=== PATIENT | female | born 1950 | race Caucasian/White ===

== ENCOUNTER 2023-12-15 08:13 | Outpatient (OUT) | payer MEDICARE, OTHER, SELFPAY ==
--- NOTE | 2023-12-15 08:29 | XR_ITS ---
The [address] [address] Patient Name: TRENT ANDERS MRN: [id number] date: 1950 Sex: F Assigned Patient Location: [facility] Current Patient Location: [facility] Accession/Order Number: [id number] Exam Date: 12/15/2023 08:34 Report Date: 12/15/2023 09:13 At the request of: JAYDEN ALMONTE Procedure: XR abdomen 1V EXAMINATION: XR abdomen 1V HISTORY: Ureteral Stone N20.1, Kidney Stone N20.0 COMPARISON: No relevant comparison available. FINDINGS: KIDNEY/URETER - RIGHT: No visible renal or ureteral calcifications. KIDNEY/URETER - LEFT: No visible renal stones PELVIS: 8 mm left pelvic calcification BOWEL: No abnormal dilation or deviation. BONES: No acute abnormality. Degenerative changes OTHER: IVC filter. No abnormal gaseous collections. XR/XR abdomen 1V IMPRESSION: Possible distal 8mm left ureterolith Electronically authenticated by: ERIC BECKER Date: 12/15/2023 09:13
== END 2023-12-15 08:14 | disposition home or self-care (01) ==
LOC: RAD 08:19
PROVIDERS: PCP Family Medicine; Visit Provider Urology
DX: N20.1 Calculus of ureter (principal); N20.0 Calculus of kidney
CPT/HCPCS: 74018

== ENCOUNTER 2024-01-01 07:48 | Outpatient (OUT) | payer MEDICARE, OTHER, SELFPAY ==
[2024-01-01 08:31] LABS: Estimated GFR (African America >60 (>=60); Estimated GFR (Non-African Ame >60 (>=60)
--- NOTE | 2024-01-01 09:35 | XR_ITS ---
[address] [address] Patient Name: TRENT ANDERS MRN: [id number] date: 1950 Sex: F [place]igned [place] Accession/Order Number: [id number] Exam Date: 01/01/2024 08:49 Report Date: 01/01/2024 10:09 At the request of: JAYDEN ALMONTE Procedure: XR IVP w KUB EXAMINATION: XR IVP w KUB HISTORY: Kidney Stone N20.0 COMPARISON: No relevant comparison available. TECHNIQUE: After obtaining patient consent a assembler [employer] image was obtained followed by injection of 100cc of Omnipaque 300 IV contrast. Immediate nephrographic images were obtained. Corticomedullary and urographic phase images were obtained at 5, 10, 15 and 20 minutes. 15 minute oblique images were also obtained. FINDINGS: KIDNEY/URETER - RIGHT: No visible calcifications. KIDNEY/URETER - LEFT: No visible calcifications. PELVIS: No visible ureteral calcifications. Any visible calcifications favor phleboliths. NEPHROGRAPHIC PHASE: Normal, symmetric size, contour, and orientation. Normal and symmetric time of contrast uptake. CORTICOMEDULLARY: No mass or abnormal appearing medulla, pyramids, or collecting system. UROGRAPHIC PHASE: Normal caliber, course, and number of ureters. BLADDER: Normal size and contour. BOWEL: No abnormal dilation or deviation. BONES: No acute abnormality. OTHER: IVC filter. Degenerative changes of the spine. No abnormal gaseous collections. XR/XR IVP w KUB IMPRESSION: Normal IVP with no hydronephrosis, abnormal calcification or filling defect Electronically authenticated by: ERIC BECKER Date: 01/01/2024 10:09
== END 2024-01-01 07:49 | disposition home or self-care (01) ==
PROVIDERS: PCP Family Medicine; Visit Provider Urology
DX: N20.0 Calculus of kidney (principal)
CPT/HCPCS: 36415; 74400; 82565; Q9967

== ENCOUNTER 2024-10-02 09:12 | Outpatient (REF) | payer OTHER, SELFPAY ==
--- OUTSIDE RECORDS SUMMARY | 2024-10-02 09:15 | XMS_ITS | CCD ---
Author Organization [facility] Care Team Providers Care Print Graphic Designer Name Role Phone Claudio Alonso Unavailable Unavailable Laina Morales Unavailable Unavailable MISC, DOCTOR Admitting Unavailable MISAdeola, DOCTOR Attending Unavailable HELENA FONTENOT Primary Care Unavailable JOSEPH ARCHER Admitting Unavailable JOSEPH ARCHER Attending Unavailable HELENA FONTENOT Primary Care Unavailable Chiquita Gerber Unavailable Dipti Garvin Unavailable Venkat Miller Unavailable ODALYS Blancas Attending Provider MD Linda Radha Primary Care Provider MD Tyrese Swanson Attending Provider [phone] [facility] Primary Care Provider [phone] MD Patricio Cifuentes Attending Provider [phone] MD Linda Radha Primary Care Provider [phone] MD Venkat Miller Attending Provider [phone] ODALYS Morales Attending Provider ODALYS Blancas Attending Provider Michael Ramirez Unavailable MD Radha Mckeon Primary Care Provider MD Venkat Miller Attending Provider [phone] ODALYS Morales Attending Provider DO Robert Ledezma II Attending Provider MD Michael Ramirez Attending Provider Radha Mckeon MD Primary Care Provider [phone] Padma GARCIAPippa Unavailable MD Linda [facility] Primary Care Provider DO Neto Sheets Attending Provider MD Linda [facility] Attending Provider MD Linda [facility] Primary Care Provider DO Neto Sheets Attending Provider [phone] [facility] Attending Provider DO Robert Ledezma II Attending Provider DO Agustín Rodriges Emergency Provider Delcovai kemar Acosta MD [facility] Emergency Provider [phone] LINDA RADHA Elin Primary Care Physician MD Jasper Almonte Attending Provider [phone] [facility] Primary Care Provider DO Mau Blackman Attending Provider MD Linda [facility] Primary Care Provider [phone] DO Robert Ledezma II Attending Provider MD Teri [place] Attending Provider Padma GARCIAPippa Unavailable Linda MARTINEZ, Radha Worthington Unavailable Lulu KNOTT, Crystal Unavailable RADHA Liao-Adeola Watson Attending Provider EVANGELINA WATSON Attending Unavailable RADHA MCKEON Referring Unavailable RADHA MCKEON Primary Care Unavailable Linda MARTINEZ Jeanna Primary Care Provider [phone] Linda MARTINEZ Radha Elin Primary Care Provider [phone] ALEJANDRINA GONZALEZ Attending Unavailable RADHA MCKEON Referring Unavailable RADHA MCKEON Primary Care Unavailable Linda MARTINEZ Radha Elin Unavailable GELY SNOW Attending Unavailable LINDA JEANNA Primary Care Unavailable GELY SNOW Attending Unavailable GELY SNOW Referring Un[facility] Unavailable Jasper ALMONTE Attending Unavailable LANDY CRUZ Attending UnavailJasper Newman Attending Unavailable Linda MARTINEZ, Radha Worthington Unavailable Linda MARTINEZ, Radha F Unavailable Linda MARTINEZ, [facility] Provider Santana Williamson MD Attending Provider [phone] SADAF CALHOUN Attending Unavailable TYRESE SWANSON Attending Unavailable LJSADAF BRAND S Referring Unavailable KORTNEY, NETO Diamond Attending Unavailable LINDA, RADHA F Attending Unavailable KORTNEY, NETO Diamond Attending Unavailable LJ, SADAF Diamond Attending Unavailable KORTNEY, NETO Diamond Attending Unavailable BRAVO CANTU Attending Unavailable PATRICIO CIFUENTES Attending Unavailable PATRICIO CIFUENTES Referring Unavailable LJ, SADAF S Attending Unavailable RADHA MCKEON Elin Attending Unavailable LINDA, RADHA Worthington Attending Unavailable LJ, SADAF S Attending Unavailable LJ, SADAF S Attending Unavailable LINDA, RADHA Elin Attending Unavailable LJ, SADAF S Attending Unavailable [facility] Care Unavailable Aby Acosta Admitting Unavailable Aby Acosta Attending Unavailable [facility] Unavailable Adamowicz II, Robert Buenrostro Admitting Unavaila ble Adamowicz II, Robert J Attending Unavaila ble Agustín Rodriges Attending Unavailable [facility] Care Unavailable Agustín Rodriges Admitting [facility] Santana Williamson Admitting Unavailable Santana Williamson Attending [facility] Unavailable Mau Blackman Admitting Unavailable Mau Blackman Attending Unavailable [facility] Unavailable Jasper Almonte Admitting Unavailable Jasper Almonte Attending Unavailable [facility] Unavailable Helena Liao Admitting Unavailable Helena Liao Attending [facility] Santana Williamson Attending Unavailable Santana Williamson Admitting Unavailable Neto Sheets Admitting Unavailable Neto Sheets Attending Unavailable [facility] Unavailable Allergies Allergy Classification Reported Allergen(s) Allergy Type Date of Onset Reaction(s) Facility (20 sources) Enoxaparin Drug Allergy Itching, Rash [facility] (1 source) No Known Medication Allergies; Translations: [No Known Medication Allergies] Propensity to adverse reactions (disorder) [facility] Repository Medications Current Medications Medication Drug Class(es) Dates Sig (Normalized) Sig (Original) acetaminophen 325 mg oral tablet (20 sources) Start: 12-02-2023 take 2 tablets by mouth every six hours as needed acetaminophen (Tylenol) 325 MG tablet Take 650 mg by mouth every 6 (six) hours if needed 12/02/2023 Active Start: 12-02-2023 take 2 capsules by m outh every six hours as needed for pain Acetaminophen (Tylenol) 325 mg capsule Active 650 MG PO Every 6 hours as needed for pain December 01, 2023 11:00pm Start: 06-10-2023 take 1 tablet by efraín th once daily as needed for pain Acetaminophen 500 mg Tablet Active 500 MG PO Daily as needed for Pain June 10, 2023 12:00am Start: 05-15-2017 End: 06-10-2023 take 2 tablets by mouth once daily as needed for pain Acetaminophen (Tylenol) 325 mg Tablet Discontinued 2 TAB PO Daily as needed for Pain May 14, 2017 11:00pm June 10, 2023 10:08am acetaminophen (T ylenol) 500 mg tablet Take by mouth every 6 hours if needed for mild pain (1 - 3). Active [id number] 200 actuat albuterol 0.09 mg/actuat metered dose inhaler (20 sources) beta2-Adrenergic Agonist Start: 06-03-2022 take 2 puff(s) by inhalation every six hours as needed for wheezing albuterol (PROVENTIL HFA;VENTOLIN HFA) 90 mcg/actuation inhaler Indications: Mild intermittent asthma, unspecified whether complicated Inhale 2 puffs every 6 (six) hours as needed for wheezing. 6.7 g 5 06/03/2022 Active Start: 05-15-2017 take 1 puff(s) by in halation every four to six hours Albuterol Sulfate Active 1 PUFF INHALATION EVERY 4-6 HOURS May 14, 2017 11:00pm Start: 05-15-2017 take 1 puff(s) by in halation every four to six hours Albuterol Sulfate Active 1 PUFF INHALATION EVERY 4-6 HOURS May 15, 2017 12:00am take 2 puff(s) by in halation every four hours for wheezing albuterol (ProAir Digihaler) 90 mcg/act breath-activated inhaler (w/ sensor) 2 puffs every 4 (four) hours if needed for wheezing Active Albuterol Sulfate 90 mcg/actuation Hfa Aerosol Inhaler (2 sources) Start: 05-15-2017 take 1 puff(s) by inhalation every four to six hours as needed for wheezing Albuterol Sulfate 90 mcg/actuation Hfa Aerosol Inhaler Active 1 PUFF INHALATION EVERY 4-6 HOURS as needed for Shortness Of Breath Or Wheezing May 14, 2017 11:00pm amoxicillin 500 mg oral capsule (16 sources) Penicillin-class Antibacterial Start: 05-04-2024 amoxicillin (Amoxil) 500 MG capsule 05/04/2024 Active 24 hr buPROPion hydrochloride 300 mg extended release oral tablet (20 sources) Aminoketone Start: 06-10-2023 take 1 tablet by mouth once daily in the morning buPROPion XL (Wellbutrin XL) 300 MG 24 hr tablet Indications: Recurrent major depressive disorder, remission status unspecified (HCC) (CMS/HCC) TAKE 1 TABLET BY MOUTH EVERY DAY IN THE MORNING FOR 90 DAYS 90 tablet 4 11/21/2023 Active Start: 04-25-2020 End: 06-10-2023 take 1 tablet by mouth once daily in the morning Bupropion Hcl 150 mg Tablet Extended Release 24 Hr Discontinued 150 MG PO Every morning April 24, 2020 11:00pm June 10, 2023 10:07am Start: 06-22-2019 take 1 tablet by efraín th every twenty-four hours in the morning buPROPion XL (WELLBUTRIN XL) 150 mg 24 hr tablet Take 1 tablet (150 mg total) by mouth in the morning. 06/22/2019 Active busPIRone hydrochloride 5 mg oral tablet (15 sources) Start: 05-10-2024 End: 05-10-2025 take 1 tablet by mouth three times daily as needed for anxiety busPIRone (Buspar) 5 MG tablet Indications: Major depressive disorder, single episode, moderate (HCC) (CMS/HCC) Take 1 tablet (5 mg) by mouth 3 (three) times a day as needed (anxiety) 30 tablet 05/10/2024 05/10/2025 Active cholecalciferol 0.05 mg oral tablet (20 sources) Vitamin D Start: 09-16-2023 End: 12-01-2023 cholecalciferol (Vitamin D-3) 50 MCG (2000 UT) tablet Take by mouth Daily Four times a week 09/16/2023 Active Start: 06-24-2017 End: 06-10-2023 Cholecalciferol (Vitamin D3) (Vitamin D3) 1,000 unit Capsule Discontinued [id number] UNIT PO As Directed June 24, 2017 12:00am June 10, 2023 10:08am clobetasol propionate 0.5 mg/ml topical cream (1 source) Corticosteroid Start: 04-16-2017 clobetasol (TEMOVATE) 0.05 % cream 04/16/2017 Active cyclobenzaprine hydrochloride 5 mg oral tablet (18 sources) Muscle Relaxant Start: 03-24-2024 take 1 tablet by mouth three times daily as needed for muscle spasms Cyclobenzaprine 5 mg tablet Active 5 MG PO Three times daily as needed for muscle spasm March 23, 2024 11:00pm Start: 06-17-2021 take 1 tablet by efraín th three times daily as needed for pain Cyclobenzaprine HCl 10 MG 1 tab(s) Orally tid prn As needed neck pain and stiffness Jun, Active 0.8 ml enoxaparin sodium 100 mg/ml prefilled syringe (5 sources) Low Molecular Weight Heparin Start: 09-09-2023 End: 09-15-2023 Enoxaparin Sodium (Lovenox) 80 MG/0.8ML solution prefilled syringe Indications: Factor 5 Leiden mutation, heterozygous (CMS/HCC) Inject 80 mg as directed in the morning and 80 mg before bedtime. Do all this for 6 days. Hold coumadin 7 days prior to surgery, start lovenox on 1st day coumadin is held and hold 24 hours before surgery. 9.6 mL 0 09/09/2023 09/15/2023 Active ergocalciferol 1.25 mg oral capsule (20 sources) Provitamin D2 Compound Start: 06-10-2023 Ergocalciferol ([place]ley min D2) 1,250 mcg (50,000 unit) capsule Active [id number] UNIT PO 4 times per week June 10, 2023 12:00am , fri Start: 06-10-2023 take [id number] [IU] by mouth four times weekly Ergocalciferol (Vitamin D2) Active [id number] UNIT PO 4 times per week June 10, 2023 1:00am , fri Start: 06-10-2023 take [id number] [IU] by mouth every week Ergocalciferol (Vitamin D2) Active [id number] UNIT PO every week June 10, 2023 12:00am take 1 capsule by mo uth every week ergocalciferol (Vitamin D2) 1.25 MG (23259 UT) capsule Take 1 capsule (1,250 mcg) by mouth 1 (one) time per week. Active End: 05-10-2024 take 1 capsule by mouth five times weekly ergocalciferol (Vitamin D2) 1.25 MG (08889 UT) capsule TAKE 1 CAPSULE BY MOUTH 5 TIMES PER WEEK 05/10/2024 Discontinued (Duplicate order) Ergocalciferol 5 0 MCG (2000 UT) tablet Take 1.25 mg by mouth. 0 Active ergocalciferol, vitamin D2, (VITAMIN D2 ORAL) (1 source) ergocalciferol, vitamin D2, (VITAMIN D2 ORAL) Take 1.25 mg by mouth. 9 times a week Active famotidine 20 mg oral tablet (20 sources) Histamine-2 Receptor Antagonist Start: End: 024 take 1 tablet by mouth once daily at bedtime as needed famotidine (Pepcid) 20 MG tablet Indications: Gastro-esophageal reflux disease without esophagitis TAKE 1 TABLET BY MOUTH EVERY DAY AT BEDTIME NEEDED 90 tablet 4 09/15/2023 Active fluticasone propionate 0.05 mg/actuat metered dose nasal spray (20 sources) Corticosteroid take 2 spray(s) nasal route in the morning fluticasone (Flonase) 50 MCG/ACT nasal spray Administer 2 sprays into affected nostril(s) in the morning. Active take 2 spray(s) nasa l route in the morning fluticasone (FLONASE) 50 mcg/actuation n frankie spray Administer 2 sprays into each nostril in the morning. Active hydroxychloroquine sulfate 200 mg oral tablet (20 sources) Antimalarial, Antirheumatic Agent Start: 12-30-2018 take 1 tablet by mouth twice daily Hydroxychloroquine (Plaquenil) 200 mg Tablet Active 200 MG PO Twice daily December 29, 2018 11:00pm hydroxychloroqui ne (Plaquenil) 200 MG tablet 1 (one) time each day at the same time. Active lidocaine 0.05 mg/mg medicated patch (10 sources) Antiarrhythmic, Amide Local Anesthetic Start: 06-17-2021 Lidocaine 5 % 1 patch remove after 12 hours Externally Once a day for 10 day(s) Apply to painful area as prescribed as needed Jun, Active Start: 06-17-2021 Lidocaine 5 % 1 patch remove after 12 hours Externally Once a day for 10 day(s) Apply to painful area as prescribed as needed Jun, Active lisinopril 2.5 mg oral tablet (3 sources) Angiotensin Converting Enzyme Inhibitor Start: 09-14-2024 End: 09-14-2025 take 1 tablet by mouth in the morning lisinopril 2.5 MG tablet Take 2.5 mg by mouth in the morning. 09/14/2024 09/14/2025 Active metroNIDAZOLE 500 mg oral tablet (10 sources) Nitroimidazole Antimicrobial Flagyl 500 MG 1 tablet Orally PRN Not-Taking Multivitamin Adult - (10 sources) Multivitamin Ketan lt - Orally Once daily Active Multivitamin preparation (20 sources) Start: 09-16-2023 take 1 tablet by mouth once daily Multivitamin Active 1 TAB PO Daily September 16, 2023 1:00am Start: 09-16-2023 take 1 tablet by efraín once daily Multivitamin Active 1 TAB PO Daily September 16, 2023 12:00am Start: 05-15-2017 End: 09-16-2023 take 2 tablets by mouth once daily Multivitamin Discontinued 2 TAB PO Daily May 15, 2017 12:00am September 16, 2023 1:09pm Start: 05-15-2017 End: 09-16-2023 take 2 tablets by mouth once daily Multivitamin Discontinued 2 TAB PO Daily May 14, 2017 11:00pm September 16, 2023 12:09pm Start: 05-15-2017 take 2 tablets by mo [facility] once daily Multivitamin Active 2 TAB PO Daily May 14, 2017 11:00pm Start: 05-15-2017 take 1 tablet by efraín th once daily Multivitamin Active 1 TAB PO Daily May 14, 2017 11:00pm Start: 05-15-2017 take 1 tablet by efraín th once daily Multivitamin Active 1 TAB PO Daily May 15, 2017 12:00am Multivitamin tablet (2 sources) Start: 09-16-2023 take 1 tablet by mouth once daily Multivitamin tablet Active 1 TAB PO Daily September 16, 2023 12:00am nitroglycerin 0.004 mg/mg rectal ointment (20 sources) Nitrate Vasodilator Start: 09-16-2023 nitroglycerin (Rectiv) 0.4 % (w/w) rectal ointment Twice daily 09/16/2023 Active Start: 06-10-2023 End: 09-16-2023 Nitroglycerin 0.4 % (w/w) oi ntment Active 1 INCH LA Twice daily as needed for rectal discomfort September 16, 2023 12:00am Start: 06-10-2023 End: 09-16-2023 Nitroglycerin 0.4 % (w/w) oi ntment Discontinued 1 INCH LA Twice daily 02 03June 10, 2023 12:00am September 16, 2023 12:07pm PARoxetine hydrochloride 30 mg oral tablet (20 sources) Serotonin Reuptake Inhibitor Start: 07-09-2024 take 1 tablet by mouth once daily in the morning PARoxetine (Paxil) 30 MG tablet Indications: Panic disorder (CMS/HCC) TAKE 1 TABLET BY MOUTH EVERY DAY IN THE MORNING 90 tablet 1 07/09/2024 Active Start: 01-14-2024 take 1 tablet by efraín th once daily in the morning PARoxetine (Paxil) 30 MG tablet Indications: Panic disorder (CMS/HCC) TAKE 1 TABLET BY MOUTH EVERY DAY IN THE MORNING 90 tablet 1 01/14/2024 Active Start: 12-10-2023 take 1 tablet by efraín th once daily Paxil 20 mg Tab 20 mg = 1 tab(s), Oral, Daily, Refills(s) 0 Start Date: 12/10/23 Status: Ordered Start: 07-14-2023 take 1 tablet by efraín th once daily in the morning PARoxetine (Paxil) 30 MG tablet Indications: Panic disorder (CMS/HCC) TAKE 1 TABLET BY MOUTH EVERY DAY IN THE MORNING 90 tablet 1 07/14/2023 Active Start: 06-10-2023 Paroxetine Hcl 30 mg tablet Active 20 MG PO Every morning June 10, 2023 12:00am Start: 06-10-2023 take 20 mg by mouth once daily in the morning Paroxetine Hcl Active 20 MG PO Every morning June 10, 2023 1:00am Start: 06-10-2023 take 30 mg by mouth once daily Paroxetine Hcl Active 30 MG PO Daily June 10, 2023 12:00am Start: 05-15-2017 End: 06-10-2023 take 1 tablet by mouth once daily Paroxetine Hcl (Paxil) 20 mg Tablet Discontinued 20 MG PO Daily May 14, 2017 11:00pm June 10, 2023 10:09am Start: 05-15-2017 Paroxetine Hcl (Paxil) 20 mg Tablet Active 30 MG PO Daily May 15, 2017 12:00am polyethylene glycol 3350 218188 mg / potassium chloride 2970 mg / sodium bicarbonate 6740 mg / sodium chloride 5860 mg / sodium sulfate 79944 mg powder for oral solution (2 sources) Osmotic Laxative Start: 05-20-2023 take 4000 mL by mouth once daily Golytely 236 GM 4000 ML Orally once daily for 1 days May, Active predniSONE 20 mg oral tablet (20 sources) Start: 10-05-2021 take 1 tablet by mouth every eight hours predniSONE 20 MG 1 tablet Orally Three times a day for 5 days Oct, Active Start: 06-17-2021 take 1 tablet by efraín th every twelve hours predniSONE 20 MG 1 tablet Orally bid for 5 day(s) Jun, Active Start: 06-24-2017 End: 12-23-2017 take 1 tablet by mouth once daily Prednisone 5 tablet Discontinued 5 MG PO Daily June 24, 2017 12:00am December 23, 2017 9:46am Start: 05-15-2017 End: 06-24-2017 take 1 tablet by mouth once daily Prednisone 20 mg Tablet Discontinued 20 MG PO Daily May 14, 2017 11:00pm June 24, 2017 10:17am Robaxin-750 750 MG (9 sources) Start: 10-05-2021 take 1 tablet by mouth at bedtime Robaxin-750 750 MG 1 -2 tablet(s) Orally at bedtime for 10 days Oct, Active silver sulfADIAZINE 10 mg/ml topical cream (20 sources) Sulfonamide Antibacterial Start: 11-04-2023 silver sulfADIAZINE (Silvadene) 1 % cream Indications: Acute vulvitis Apply topically Daily 25 g 11/04/2023 Active therapeutic multivitamin (THERAGRAN) tablet (1 source) take 1 tablet by mouth in the morning therapeutic multivitamin (THERAGRAN) tablet Take 1 tablet by mouth in the morning. Active traMADol hydrochloride 50 mg oral tablet (10 sources) Opioid Agonist take 1 tablet by mouth every twenty-four hours triamcinolone acetonide 1 mg/ml topical cream (20 sources) Corticosteroid Start: 08-18-2024 triamcinolone (Kenalog) 0.1 % cream Indications: Atopic neurodermatitis APPLY TO AFFECTED AREA TWICE A DAY 60 g 1 08/18/2024 Active Start: 10-09-2023 triamcinolone (Kenalog) 0.1 % cream Indications: Atopic neurodermatitis Apply topically 2 (two) times a day 60 g 1 10/09/2023 Active Start: 10-31-2022 Kenalog-40 Mar, 40 mg Start: 03-06-2021 Kenalog -40 mg Mar, 40 mg Start: 09-23-2017 Kenalog -40 mg 20 Sep, 2017 Vitamin D 2000 UNIT (10 sources) take 1 tablet by mouth once daily Vitamin D 2000 UNIT 1 tablet Orally Once a day Active warfarin sodium 2 mg oral tablet (20 sources) Vitamin K Antagonist Start: 05-17-2024 take 2 tablets by mouth three times weekly Warfarin 2 mg tablet Active 4 MG PO 3 Times a week May 17, 2024 3:13pm Start: 05-17-2024 take 4 mg by mouth t hree times weekly Warfarin Active 4 MG PO 3 Times a week May 17, 2024 4:13pm Start: 05-10-2024 take 1 tablet by efraín th three times weekly warfarin (COUMADIN) 4 mg tablet Take 1 tablet (4 mg total) by mouth 3 (three) times a week. Takes on Friday05/10/2024 Active Start: 06-10-2023 End: 09-16-2023 Warfarin 2 mg tablet Discont inued 1 MG PO As Directed June 10, 2023 12:00am September 16, 2023 12:07pm Start: 06-10-2023 End: 09-16-2023 Warfarin Discontinued 1 MG P O As Directed June 10, 2023 1:00am September 16, 2023 1:07pm Start: 04-24-2021 End: 06-26-2024 take 1 mg by mouth once daily warfarin (Coumadin) 2 MG tablet Indications: Factor 5 Leiden mutation, heterozygous (CMS/HCC) TAKE 1 TABLET BY MOUTH EVERY DAY. TAKE 1 MG ON TUESDAYS 90 tablet 11 06/26/2024 Active take 2 tablets by mo ut in the evening warfarin (COUMADIN) 1 mg tablet Take 2 tablets (2 mg total) by mouth in the evening. Active take 1 tablet by efraín th once daily take 1 tablet by efraín th once daily Coumadin 1.5 mg 1 tablet Orally Once a day Not-Taking Zinc (2 sources) take 1 tablet by mouth once daily Zinc 50 MG 1 tablet Orally Once a day Active zinc gluconate 50 mg oral tablet (8 sources) take 1 tablet by mouth every twenty-four hours Zinc 50 MG 1 tablet Orally Once a day Active zoledronic acid 4 mg injection (4 sources) Bisphosphonate Start: 08-30-2024 Zoledronic Acid 4 mg recon soln Active MG IV August 30, 2024 12:00am zoledronic acid (Zometa) 4 MG/5ML injection Infuse 4 mg into a venous catheter 1 (one) time Active Completed/Discontinued Medications Medication Drug Class(es) Dates Sig (Normalized) Sig (Original) acetaminophen 325 mg / HYDROcodone bitartrate 5 mg oral tablet (20 sources) Opioid Agonist Start: 05-15-2017 End: 04-25-2022 take 1 tablet by mouth every four to six hours as needed for pain Hydrocodone-Acetami nophen ([place]) 5-325 mg Tablet Discontinued 1 TAB PO EVERY 4-6 HOURS as needed for Pain May 14, 2017 11:00pm April 25, 2022 11:56am take 1 tablet by efraín th every six hours as needed take 1 tablet by efraín th every six hours as needed [place] 5-325 MG 1 tablet as needed Orally every 6 hrs Not-Taking azithromycin 250 mg oral tablet (6 sources) Macrolide Antimicrobial Start: 01-15-2024 End: 05-08-2024 take 2 tablets by mouth once daily, then take 1 tablet by mouth once daily azithromycin (Zithromax) 250 MG tablet Indications: Acute bronchitis, unspecified organism 2 po every day x 1 day then 1 po every day x 4 days 6 tablet 01/15/2024 05/08/2024 Discontinued (Therapy completed) ferrous sulfate 325 mg oral tablet (20 sources) Start: 07-01-2018 End: 05-08-2024 take 1 tablet by mouth once daily Ferrous Sulfate (Iron) 325 mg (65 mg iron) Tablet Discontinued 325 MG PO Daily July 01, 2018 12:00am April 22, 2023 7:54am meloxicam 7.5 mg oral tablet (20 sources) Nonsteroidal Anti-inflammatory Drug Start: 12-23-2017 End: 12-30-2018 take 1 tablet by mouth once daily Meloxicam 7.5 mg Tablet Discontinued 7.5 MG PO Daily December 22, 2017 11:00pm December 30, 2018 7:46am methylPREDNISolone 4 mg oral tablet (8 sources) Corticosteroid Start: 03-24-2024 End: 04-23-2024 take 1 tablet by mouth once Methylprednisolone (Medrol (Mele)) 4 mg tablets,dose pack Discontinued 0 PO per package directions March 23, 2024 11:00pm April 23, 2024 8:11am PO PER PKG DIR Multivitamin Tablet (2 sources) Start: 05-15-2017 End: 09-16-2023 take 2 tablets by mouth once daily Multivitamin Tablet Discontinued 2 TAB PO Daily May 14, 2017 11:00pm September 16, 2023 12:09pm omeprazole 40 mg delayed release oral capsule (20 sources) Proton Pump Inhibitor Start: 05-15-2017 End: 05-08-2024 take 1 capsule by mouth once daily in the evening Omeprazole 40 mg capsule,delayed release(DR/EC) Discontinued 40 MG PO Every evening September 16, 2023 12:00am December 01, 2023 10:54pm take 1 capsule by mouth every tw enty-four hours ondansetron 4 mg oral tablet (17 sources) Serotonin-3 Receptor Antagonist Start: 12-02-2023 End: 05-08-2024 take 1 tablet by mouth every eight hours as needed Ondansetron Hcl 4 mg tablet Discontinued 4 MG PO .q8h prn 6 2 December 01, 2023 11:00pm February 27, 2024 8:16am oxyCODONE hydrochloride 5 mg oral capsule (17 sources) Opioid Agonist Start: 12-02-2023 End: 05-08-2024 take 1 capsule by mouth every eight hours as needed for pain Oxycodone 5 mg capsule Discontinued 5 MG PO Q8H as needed for pain 6 2 December 02, 2023 February 27, 2024 8:16am prasterone 25 mg oral capsule (20 sources) Start: 07-01-2018 End: 04-25-2020 take 1 capsule by mouth once daily Prasterone (Dhea) (Dhea) 25 mg Capsule Discontinued 25 MG PO Daily July 01, 2018 12:00am April 25, 2020 8:09am Progesterone (20 sources) Progesterone Start: 07-01-2018 End: 04-25-2020 Progesterone Micronized 4 % Gel Discontinued 45 MG Daily July 01, 2018 12:00am April 25, 2020 8:10am Start: 07-01-2018 End: 04-25-2020 Progesterone Micronized Disc ontinued 45 MG Daily July 01, 2018 12:00am April 25, 2020 8:10am Start: 07-01-2018 End: 04-25-2020 Progesterone Micronized Disc ontinued 45 MG Daily July 01, 2018 1:00am April 25, 2020 9:10am rivaroxaban 20 mg oral tablet (20 sources) Factor Xa Inhibitor Start: 05-15-2017 End: 04-24-2021 take 10 mg by mouth once daily Rivaroxaban (Xarelto) 20 mg Tablet Discontinued 10 MG PO Daily May 14, 2017 11:00pm April 24, 2021 8:30am sulfamethoxazole 800 mg / trimethoprim 160 mg oral tablet (20 sources) Dihydrofolate Reductase Inhibitor Antibacterial, Sulfonamide Antimicrobial Start: 05-15-2017 End: 12-23-2017 take 1 tablet by mouth once Sulfamethoxazole- Trimethoprim (Bactrim Ds) 800-160 mg Tablet Discontinued 1 TAB PO MOWEFR May 14, 2017 11:00pm December 23, 2017 9:47am tamsulosin hydrochloride 0.4 mg oral capsule (17 sources) alpha-Adrenergic [place] Start: 12-02-2023 End: 02-27-2024 take 1 capsule by mouth once daily Tamsulosin (Flomax) 0.4 mg capsule Discontinued 0.4 MG PO Daily 7 7 December 01, 2023 11:00pm February 27, 2024 8:16am End: 05-08-2024 take 1 capsule by mouth every twenty-four hours in the morning tamsulosin (Flomax) 0.4 MG 24 hr capsule Take 0.4 mg by mouth in the morning and 0.4 mg before bedtime. 05/08/2024 Discontinued (Therapy completed) Toradol 30 mg/ml (9 sources) Start: 06-17-2021 Toradol 30 mg/ ml Jun, 30 mg Vitamin D2 50,000 intl units (1.25 mg) oral capsule (1 source) Start: 12-10-2023 take 1 capsule by mouth every other day Vitamin D2 50,000 intl units (1.25 mg) oral capsule 50,000 International_Unit = 1 cap(s), Oral, Every other day, Refills(s) 0 Start Date: 12/10/23 Status: Ordered Zinc Amino Acid Chelate (19 sources) Start: 06-24-2017 End: 04-22-2023 take 50 mg by mouth once daily Zinc Amino Acid Chelate Discontinued 50 MG PO Daily June 24, 2017 12:00am April 22, 2023 7:54am Start: 06-24-2017 End: 04-22-2023 take 50 mg by mouth once daily Zinc Amino Acid Chelate Discontinued 50 MG PO Daily June 24, 2017 1:00am April 22, 2023 8:54am Start: 06-24-2017 take 50 mg by mouth once daily Zinc Amino Acid Chelate Active 50 MG PO Daily June 24, 2017 12:00am Start: 06-24-2017 take 50 mg by mouth once daily Zinc Amino Acid Chelate Active 50 MG PO Daily June 24, 2017 1:00am Zinc Amino Acid Chelate 50 mg tablet (2 sources) Start: 06-24-2017 End: 04-22-2023 take 1 tablet by mouth once daily Zinc Amino Acid Chelate 50 mg tablet Discontinued 50 MG PO Daily June 24, 2017 12:00am April 22, 2023 7:54am Problems Active Problems Problem Classification Problem Date Documented Date Episodic/Chronic Acquired foot deformities (20 sources) Acquired right hallux valgus; Translations: [Hallux valgus (acquired), right foot] Onset: 3 12-27-2022 Chronic Anxiety disorders (20 sources) Anxiety; Translations: [Anxiety disorder, unspecified] Onset: 3 12-27-2022 Chronic Aortic; peripheral; and visceral artery aneurysms (20 sources) Aneurysm of ascending aorta; Translations: [Ascending aortic aneurysm, unspecified whether ruptured (CMS/HCC)] Onset: 3 09-09-2023 Chronic Asthma (20 sources) Uncomplicated mild persistent asthma; Translations: [Mild persistent asthma, uncomplicated] Onset: 7 09-09-2023 Chronic Cardiac dysrhythmias (1 source) Bradycardia 12-10-2023 Episodic Coagulation and hemorrhagic disorders (20 sources) Heterozygous Factor V Leiden mutation; Translations: [Activated protein C resistance] Onset: 3 09-09-2023 Chronic Complications of surgical procedures or medical care (20 sources) Post-surgical malabsorption; Translations: [Postsurgical malabsorption, not elsewhere classified] Onset: 3 12-27-2022 Chronic Diseases of white blood cells (20 sources) Lymphocytopenia; Translations: [Lymphocytopenia] Onset: 3 06-24-2017 Chronic Esophageal disorders (20 sources) Gastroesophageal reflux disease; Translations: [Gastro-esophageal reflux disease without esophagitis] Onset: 3 12-27-2022 Chronic Heart valve disorders (20 sources) Aortic stenosis, non-rheumatic ; Translations: [Nonrheumatic aortic (valve) stenosis] Onset: 4 05-08-2024 Chronic Heart valve disorders (3 sources) Systolic murmur; Translations: [Cardiac murmur, unspecified] 09-09-2023 Episodic Immunizations and screening for infectious disease (2 sources) Vaccination needed; Translations: [Encounter for immunization] 05-10-2024 Episodic Lymphadenitis (20 sources) Mediastinal lymphadenopathy; Translations: [Localized enlarged lymph nodes] Onset: 7 Resolved: 7 12-30-2018 Episodic Malaise and fatigue (20 sources) Fatigue; Translations: [Chronic fatigue, unspecified] Onset: 3 09-09-2023 Chronic Menopausal disorders (20 sources) Atrophy of vagina; Translations: [Postmenopausal atrophic vaginitis] Onset: 3 Resolved: 4 12-27-2022 Chronic Mood disorders (20 sources) Moderate major depression, single episode; Translations: [Major depressive disorder, single episode, moderate] Onset: 3 Resolved: 4 09-09-2023 Chronic Nutritional deficiencies (20 sources) Vitamin D deficiency; Translations: [Vitamin D deficiency, unspecified] Onset: 3 12-27-2022 Chronic Osteoarthritis (20 sources) Primary gonarthrosis, bilateral; Translations: [Bilateral primary osteoarthritis of knee] Onset: 3 12-27-2022 Chronic Osteoporosis (20 sources) Osteoporosis; Translations: [Age-related osteoporosis without current pathological fracture] Onset: 3 Resolved: 4 04-22-2023 Chronic Other aftercare (20 sources) Long-term current use of anticoagulant; Translations: [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] Onset: 4 04-13-2019 Episodic Other aftercare (2 sources) 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; Translations: [long-term (current) use of anticoagulants] Onset: 4 Episodic Other circulatory disease (10 sources) Vasculitis; Translations: [Arteritis, unspecified] Chronic Other connective tissue disease (4 sources) Presence of left artificial knee joint; Translations: [PRESENCE LEFT ARTIFICIAL KNEE JOINT] Onset: 9 Chronic Other connective tissue disease (20 sources) Polymyalgia rheumatica; Translations: [Polymyalgia rheumatica] Onset: 3 09-09-2023 Chronic Other connective tissue disease (4 sources) Bicipital tendinitis, right shoulder; Translations: [BICIPITAL TENDINITIS RIGHT SHOULDER] Onset: 9 Episodic Other connective tissue disease (1 source) Impingement syndrome of right shoulder; Translations: [IMPINGEMENT SYNDROME RIGHT SHOULDER] Onset: 9 Episodic Other connective tissue disease (7 sources) Trochanteric bursitis of left hip; Translations: [Trochanteric bursitis, left hip] Episodic Other connective tissue disease (4 sources) Trochanteric bursitis, left hip Onset: 2 Resolved: 2 Episodic Other connective tissue disease (4 sources) Other bursitis of hip, left hip Onset: 2 Resolved: 2 Episodic Other connective tissue disease (9 sources) Trochanteric bursitis; Translations: [Trochanteric bursitis, left hip] 02-26-2024 Episodic Other connective tissue disease (20 sources) Impingement syndrome of unspecified shoulder; Translations: [Other affections of shoulder region, not elsewhere classified] 02-27-2024 Episodic Other connective tissue disease (17 sources) Other shoulder lesions, unspecified shoulder; Translations: [Disorders of bursae and tendons in shoulder region, unspecified] 02-27-2024 Episodic Other connective tissue disease (3 sources) Rotator cuff arthropathy of right shoulder; Translations: [Unspecified rotator cuff tear or rupture of right shoulder, not specified as traumatic] 05-17-2024 Episodic Other connective tissue disease (3 sources) Tear of right rotator cuff; Translations: [Unspecified rotator cuff tear or rupture of right shoulder, not specified as traumatic] 05-17-2024 Episodic Other connective tissue disease (3 sources) Unspecified rotator cuff tear or rupture of right shoulder, not specified as traumatic; Translations: [Other specified arthropathy, shoulder region] 05-17-2024 Episodic Other diseases of kidney and ureters (20 sources) Secondary hyperparathyroidism; Translations: [Secondary hyperparathyroidism of renal origin] Onset: 3 09-09-2023 Chronic Other endocrine disorders (20 sources) Hypoadrenalism; Translations: [Unspecified adrenocortical insufficiency] Onset: 7 09-09-2023 Chronic Other endocrine disorders (2 sources) Tertiary hyperparathyroidism; Translations: [Other hyperparathyroidism] 09-27-2024 Chronic Other gastrointestinal disorders (2 sources) History of bypass of stomach; Translations: [Bariatric surgery status] 09-27-2024 Episodic Other nervous system disorders (20 sources) Chronic pain; Translations: [Other chronic pain] Onset: 3 Resolved: 4 08-20-2023 Chronic Other nervous system disorders (4 sources) Other chronic pain Onset: 2 Resolved: 2 Chronic Other nervous system disorders (20 sources) Chronic pain syndrome; Translations: [Chronic pain syndrome] Onset: 3 Resolved: 4 08-20-2023 Chronic Other non-traumatic joint disorders (7 sources) Hip pain; Translations: [Pain in unspecified hip] Episodic Other non-traumatic joint disorders (3 sources) Pain in unspecified hip Onset: 2 Resolved: 2 Episodic Other screening for suspected conditions (not mental disorders or infectious disease) (1 source) Hormone increase 12-10-2023 Episodic Other skin disorders (20 sources) Localized scleroderma; 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]] Onset: 3 12-27-2022 Chronic Other skin disorders (20 sources) Lichen sclerosus et atrophicus; Translations: [Circumscribed scleroderma] Onset: 3 12-27-2022 Chronic Other skin disorders (1 source) Mass of left parotid gland 12-10-2023 Episodic Other upper respiratory disease (20 sources) Allergic rhinitis due to pollen; Translations: [Allergic rhinitis due to pollen] Onset: 3 12-27-2022 Chronic Phlebitis; thrombophlebitis and thromboembolism (20 sources) H/O: Deep vein thrombosis; Translations: [Personal history of other venous thrombosis and embolism] Onset: 4 06-24-2017 Episodic Residual codes; unclassified (20 sources) Obstructive sleep apnea syndrome; Translations: [Obstructive sleep apnea (adult) (pediatric)] Onset: 7 12-27-2022 Chronic Residual codes; unclassified (10 sources) Sleep apnea; Translations: [Sleep apnea, unspecified] Onset: 4 02-26-2024 Chronic Residual codes; unclassified (1 source) Obstructive sleep apnea (adult) (pediatric); Translations: [Obstructive sleep apnea (adult) (pediatric)] Onset: 4 Chronic Residual codes; unclassified (2 sources) Postmenopausal state; Translations: [Asymptomatic menopausal state] 09-30-2024 Episodic Retinal detachments; defects; vascular occlusion; and retinopathy (20 sources) Epiretinal membrane of left eye; Translations: [Puckering of macula, left eye] Onset: 4 10-06-2023 Chronic Systemic lupus erythematosus and connective tissue disorders (20 sources) Autoimmune disease; Translations: [Systemic involvement of connective tissue, unspecified] Onset: 3 09-09-2023 Chronic Past or Other Problems Problem Classification Problem Date Documented Da te Episodic/Chronic Calculus of urinary tract (20 sources) Urolithiasis ; Translations: [Urinary calculus, unspecified] Onset: 12-01-2023 12-02-2023 Episodic Cataract (20 sources) Nuclear sclerosis; Translations: [Age-related nuclear cataract, bilateral] Onset: 10-06-2023 Resolved: 01-15-2024 01-15-2024 Chronic Deficiency and other anemia (20 sources) Iron deficiency anemia; Translations: [Iron deficiency anemia, unspecified] Onset: 01-13-2018 04-13-2019 Episodic Deficiency and other anemia (14 sources) Iron deficiency anemia, unspecified; Translations: [Iron deficiency anemia, unspecified] Onset: 04-23-2024 04-25-2022 Episodic Deficiency and other anemia (1 source) Other iron deficiency anemias; Translations: [Other iron deficiency anemias] Onset: 04-23-2024 Episodic Diseases of mouth; excluding dental (1 source) Other diseases of salivary glands; Translations: [Other diseases of salivary glands] Onset: 09-29-2023 Episodic Fluid and electrolyte disorders (20 sources) Acute hypokalemia; Translations: [Hypokalemia] Onset: 01-15-2024 11-29-2023 Episodic Mood disorders (20 sources) Mood disorders Onset: 09-09-2023 Resolved: 09-30-2024 09-09-2023 Nonspecific chest pain (1 source) Chest pain, unspecified; Translations: [Chest pain, unspecified] Onset: 11-28-2023 Episodic Nutritional deficiencies (20 sources) Dietary zinc deficiency; Translations: [Dietary zinc deficiency] Onset: 12-27-2022 12-27-2022 Episodic Other aftercare (20 sources) Drug therapy finding; Translations: [long-term (current) use of anticoagulants] Onset: 02-12-2024 05-08-2024 Episodic Other connective tissue disease (20 sources) Iliopsoas bursitis of left hip; Translations: [Other bursitis of hip, left hip] Onset: 05-08-2024 02-26-2024 Episodic Other connective tissue disease (20 sources) Impingement syndrome of right shoulder region; Translations: [Impingement syndrome of right shoulder] Onset: 12-27-2022 12-27-2022 Episodic Other connective tissue disease (20 sources) Pain in left arm; Translations: [Pain in left arm] Onset: 01-15-2024 11-29-2023 Episodic Other connective tissue disease (20 sources) Impingement syndrome of shoulder region; Translations: [Impingement syndrome of unspecified shoulder] Onset: 05-08-2024 02-27-2024 Episodic Other lower respiratory disease (20 sources) Nodule of lung; Translations: [Solitary pulmonary nodule] Onset: 02-26-2017 12-27-2022 Episodic Other lower respiratory disease (20 sources) Cough; Translations: [Cough] Onset: 10-09-2016 Resolved: 08-20-2023 08-20-2023 Episodic Other nervous system disorders (20 sources) Difficulty walking; Translations: [Difficulty in walking, not elsewhere classified] Onset: 12-27-2022 Resolved: 08-20-2023 08-20-2023 Chronic Other non-traumatic joint disorders (20 sources) Pain in right shoulder; Translations: [Acute pain of right shoulder] Onset: 02-02-2019 02-26-2024 Episodic Other non-traumatic joint disorders (20 sources) Joint pain; Translations: [Pain in unspecified joint] Onset: 02-26-2017 12-27-2022 Episodic Other nutritional; endocrine; and metabolic disorders (20 sources) Excessive thirst; Translations: [Polydipsia] Onset: 12-27-2022 Resolved: 08-20-2023 08-20-2023 Episodic Other nutritional; endocrine; and metabolic disorders (20 sources) Overweight in adulthood with body mass index of 25 or more but less than 30; Translations: [Body mass index (BMI) 27.0-27.9, adult] Onset: 02-12-2024 05-08-2024 Episodic Other nutritional; endocrine; and metabolic disorders (2 sources) Body mass index (BMI) 27.0-27.9, adult; Translations: [Body mass index (BMI) 27.0-27.9, adult] Onset: 02-12-2024 Episodic Spondylosis; intervertebral disc disorders; other back problems (1 source) Torticollis Onset: 06-17-2021 Resolved: 06-17-2021 Episodic Sprains and strains (20 sources) Strain of left quadriceps muscle, fascia and tendon, initial encounter; Translations: [Strain of muscle, fascia and tendon of other parts of biceps, right arm, initial encounter] Onset: 10-05-2021 Resolved: 10-05-2021 Episodic Unclassified (2 sources) Onset: 02-12-2024 02-12-2024 Viral infection (20 sources) Verruca plantaris; Translations: [Plantar wart] Onset: 12-27-2022 Resolved: 08-20-2023 08-20-2023 Episodic Results Test Name Value Interpretation Reference Range Facility Laboratory - Cytologyon 09-05 Microscopic observation Cyto stain Nom (Cvx) 2.3 [facility] No Panel Informationon 09-30 Interpretation and review of laboratory results Normal [facility] INR- 2.3 PT-23.6 2mg Daily [facility] Alanine aminotransferase [En zymatic activity/volume] in Serum or PlasmaOrdered By: Santana Williamson on 09-27-2024 ALT [Catalytic activity/Vol] Alanine aminotransferase [Enzymatic activity/volume] in Serum or Plasma 7-52 [facility] Albumin [Mass/volume] in Ser um or Plasma by Bromocresol green (BCG) dye binding methoOrdered By: Santana Williamson on 09-27-2024 Albumin BCG dye [Mass/Vol] Albumin [Mass/volume] in Serum or Plasma by Bromocresol green (BCG) dye binding metho 3.5-5.7 [facility] Alkaline phosphatase [Enzyma tic activity/volume] in Serum or PlasmaOrdered By: Santana Williamson on 09-27-2024 ALP [Catalytic activity/Vol] Alkaline phosphatase [Enzymatic activity/volume] in Serum or Plasma 34-104 [facility] Appearance of UrineOrdered B y: Santana Williamson on 09-27-2024 Appearance (U) Urine appearance Abnormal Clear [facility] Aspartate aminotransferase [ Enzymatic activity/volume] in Serum or PlasmaOrdered By: Santana Williamson on 09-27-2024 AST [Catalytic activity/Vol] Aspartate aminotransferase [Enzymatic activity/volume] in Serum or Plasma High 13-39 [facility] Bacteria [Presence] in Urine by AutomatedOrdered By: Santana Williamson on 09-27-2024 Bacteria Auto Ql (U) Bacteria [Presence] in Urine by Automated None Seen [facility] Basophils Auto (Bld) [#/Vol] Ordered By: Santana Williamson on 09-27-2024 Basophils (Bld) [#/Vol] Automated basophil count 0.0-0.2 [facility] Basophils/100 WBC Auto (Bld) Ordered By: Santana Williamson on 09-27-2024 Basophils/100 WBC (Bld) Automated basophil % . [facility] Bilirubin Test strip Ql (U)O rdered By: Santana Williamson on 09-27-2024 Bilirubin Ql (U) Bilirubin.total [Pre sence] in Urine by Test strip Negative [facility] Bilirubin.direct [Mass/volum e] in Serum or PlasmaOrdered By: Santana Williamson on 09-27-2024 Bilirubin.direct [Mass/Vol] Bilirubin.direct [Mass/volume] in Serum or Plasma 0.03-0.18 [facility] Bilirubin.total [Mass/volume ] in Serum or PlasmaOrdered By: Santana Williamson on 09-27-2024 Bilirubin [Mass/Vol] Bilirubin.total [Mass/volume] in Serum or Plasma 0.3-1.0 [facility] C reactive protein [Mass/vol ume] in Serum or PlasmaOrdered By: Santana Williamson on 09-27-2024 CRP [Mass/Vol] C reactive protein [Mass/volume] in Serum or Plasma 0.0-0.5 [facility] C-Reactive Proteinon 025 CRP [Mass/Vol] mg/L Normal 0.0-0.5 [facility] Comment on above: Result Comment: PERF ORMED BY: [facility] [address] [place] [address] PATHOLOGIST VENDOR SPECIALIST LAURA GLOVER M.D. Performed By: #### E SR, CBC, ADDONUAPLUS, HEPATIC, CREAT, MG, CRP #### [facility] [address] Calcium oxalate crystals [Pr esence] in Urine by Computer assisted methodOrdered By: Santana Williamson on 09-27-2024 Calcium oxalate crystals Computer assisted Ql (U) Calcium oxalate crystals [Presence] in Urine by Computer assisted method [facility] Color Auto (U)Ordered By: Jacki Williamson on 09-27-2024 Color (U) Color of Urine by Auto Yellow Fi [facility] Complete Blood Count Auto Di ffon 09-27-2024 Basophils (Bld) [#/Vol] 0.0 10*3/uL Normal 0.0-0.2 [facility] Comment on above: Performed By: #### E SR, CBC, ADDONUAPLUS, HEPATIC, CREAT, MG, CRP #### [address] Basophils/100 WBC (Bld) 0.9 % Normal . [facility] Comment on above: Performed By: #### E SR, CBC, ADDONUAPLUS, HEPATIC, CREAT, MG, CRP #### [address] Eosinophils (Bld) [#/Vol] 0.2 10*3/uL Normal 0.0-0.45 [facility] Comment on above: Performed By: #### E SR, CBC, ADDONUAPLUS, HEPATIC, CREAT, MG, CRP #### [address] Eosinophils/100 WBC (Bld) 3.9 % Normal . [facility] Comment on above: Performed By: #### E SR, CBC, ADDONUAPLUS, HEPATIC, CREAT, MG, CRP #### [address] Erythrocyte distribution width (RBC) [Ratio] 13.6 % Normal 11.9-15.3 [facility] Comment on above: Performed By: #### E SR, CBC, ADDONUAPLUS, HEPATIC, CREAT, MG, CRP #### [address] Hematocrit (Bld) [Volume fraction] 38.1 % Normal 34.0-46.4 [facility] Comment on above: Performed By: #### E SR, CBC, ADDONUAPLUS, HEPATIC, CREAT, MG, CRP #### [address] Hemoglobin (Bld) [Mass/Vol] 13.0 g/dL Normal 11.8-15.4 [facility] Comment on above: Performed By: #### E SR, CBC, ADDONUAPLUS, HEPATIC, CREAT, MG, CRP #### [address] Lymphocytes (Bld) [#/Vol] 1.1 10*3/uL Normal 1.00-4.8 [facility] Comment on above: Performed By: #### E SR, CBC, ADDONUAPLUS, HEPATIC, CREAT, MG, CRP #### [address] Lymphocytes/100 WBC (Bld) 25.1 % Normal . [facility] Comment on above: Performed By: #### E SR, CBC, ADDONUAPLUS, HEPATIC, CREAT, MG, CRP #### [address] MCH (RBC) [Entitic mass] 32.4 pg Normal 24.7-34.3 [facility] Comment on above: Performed By: #### E SR, CBC, ADDONUAPLUS, HEPATIC, CREAT, MG, CRP #### [address] MCV (RBC) [Entitic vol] 95.0 fL Normal 80-100 [facility] Comment on above: Performed By: #### E SR, CBC, ADDONUAPLUS, HEPATIC, CREAT, MG, CRP #### [address] Mean Corpuscular HGB Conc 34.1 g/dL Normal 32.0-35.0 [facility] Comment on above: Performed By: #### E SR, CBC, ADDONUAPLUS, HEPATIC, CREAT, MG, CRP #### [address] Monocytes (Bld) [#/Vol] 0.3 10*3/uL Normal 0.0-0.8 [facility] Comment on above: Performed By: #### E SR, CBC, ADDONUAPLUS, HEPATIC, CREAT, MG, CRP #### [address] Monocytes/100 WBC (Bld) 7.6 % Normal . [facility] Comment on above: Performed By: #### E SR, CBC, ADDONUAPLUS, HEPATIC, CREAT, MG, CRP #### [address] Neutrophils (Bld) [#/Vol] 2.7 10*3/uL Normal 1.8-7.7 [facility] Comment on above: Performed By: #### E SR, CBC, ADDONUAPLUS, HEPATIC, CREAT, MG, CRP #### [address] Neutrophils/100 WBC (Bld) 62.5 % Normal . [facility] Comment on above: Performed By: #### E SR, CBC, ADDONUAPLUS, HEPATIC, CREAT, MG, CRP #### [address] NRBC% 0.0 /100{WBC} Normal 0-0.5 [facility] Comment on above: Performed By: #### E SR, CBC, ADDONUAPLUS, HEPATIC, CREAT, MG, CRP #### [address] Platelet mean volume (Bld) [Entitic vol] 10.1 fL Normal 6.3-10.7 [facility] Comment on above: Performed By: #### E SR, CBC, ADDONUAPLUS, HEPATIC, CREAT, MG, CRP #### [address] Platelets (Bld) [#/Vol] 157 10*3/uL Normal 150-450 [facility] Comment on above: Performed By: #### E SR, CBC, ADDONUAPLUS, HEPATIC, CREAT, MG, CRP #### [address] RBC (Bld) [#/Vol] 4.01 10*6/uL Normal 3.60-5.00 [facility] Comment on above: Performed By: #### E SR, CBC, ADDONUAPLUS, HEPATIC, CREAT, MG, CRP #### [address] WBC (Bld) [#/Vol] 4.4 10*3/uL Normal 3.8-11.6 [facility] Comment on above: Performed By: #### E SR, CBC, ADDONUAPLUS, HEPATIC, CREAT, MG, CRP #### [address] Creatinineon 09-27-2024 Creatinine [Mass/Vol] 0.58 mg/dL Low 0.60-1.20 [facility] Comment on above: Performed By: #### E SR, CBC, ADDONUAPLUS, HEPATIC, CREAT, MG, CRP #### [address] GFR/1.73 sq M.predicted MDRD (S/P/Bld) [Vol rate/Area] mL/min/{1.73_m2} Normal [facility] Comment on above: Performed By: #### E SR, CBC, ADDONUAPLUS, HEPATIC, CREAT, MG, CRP #### [address] Creatinine [Mass/volume] in Serum or PlasmaOrdered By: Santana Williamson on 09-27-2024 Creatinine [Mass/Vol] Creatinine [Mass/v olume] in Serum or Plasma Low 0.60-1.20 [facility] Dipstick and Microscopicon 0 09-27-2024 Appearance (U) Cloudy Critically abnormal Clear [facility] Comment on above: Order Comment: Name Collection Type:: Clean-Voided Midstream Performed By: #### E SR, CBC, ADDONUAPLUS, HEPATIC, CREAT, MG, CRP #### [address] Bacteria,Urine None Seen Normal None Seen [facility] Comment on above: Order Comment: Name Collection Type:: Clean-Voided Midstream Performed By: #### E SR, CBC, ADDONUAPLUS, HEPATIC, CREAT, MG, CRP #### [facility] [address] Bilirubin,Urine Negative Normal Negative [facility] Comment on above: Order Comment: Name Collection Type:: Clean-Voided Midstream Performed By: #### E SR, CBC, ADDONUAPLUS, HEPATIC, CREAT, MG, CRP #### [facility] [address] Calcium Oxalate Crystals,Urine 4+ Normal [facility] Comment on above: Order Comment: Name Collection Type:: Clean-Voided Midstream Performed By: #### E SR, CBC, ADDONUAPLUS, HEPATIC, CREAT, MG, CRP #### [address] Color (U) Light-Yellow Normal Yellow [facility] Comment on above: Order Comment: Name Collection Type:: Clean-Voided Midstream Performed By: #### E SR, CBC, ADDONUAPLUS, HEPATIC, CREAT, MG, CRP #### [address] Glucose Ql (U) Normal Normal Normal [facility] Comment on above: Order Comment: Name Collection Type:: Clean-Voided Midstream Performed By: #### E SR, CBC, ADDONUAPLUS, HEPATIC, CREAT, MG, CRP #### [address] Hyaline Casts,Urine None Normal 0-8 [facility] Comment on above: Order Comment: Name Collection Type:: Clean-Voided Midstream Performed By: #### E SR, CBC, ADDONUAPLUS, HEPATIC, CREAT, MG, CRP #### [address] Ketones Ql (U) Negative Normal Negative [facility] Comment on above: Order Comment: Name Collection Type:: Clean-Voided Midstream Performed By: #### E SR, CBC, ADDONUAPLUS, HEPATIC, CREAT, MG, CRP #### [address] Leukocyte esterase Test strip Ql (U) Negative Normal Negative [facility] Comment on above: Order Comment: Name Collection Type:: Clean-Voided Midstream Performed By: #### E SR, CBC, ADDONUAPLUS, HEPATIC, CREAT, MG, CRP #### [address] Mucus,Urine Rare Normal [facility] Comment on above: Order Comment: Name Collection Type:: Clean-Voided Midstream Result Comment: PERF ORMED BY: [place] [address] PATHOLOGIST VENDOR SPECIALIST LAURA GLOVER M.D. Performed By: #### E SR, CBC, ADDONUAPLUS, HEPATIC, CREAT, MG, CRP #### [address] Nitrite,Urine Negative Normal Negative [facility] Comment on above: Order Comment: Name Collection Type:: Clean-Voided Midstream Performed By: #### E SR, CBC, ADDONUAPLUS, HEPATIC, CREAT, MG, CRP #### [address] Occult Blood,Urine Negative Normal Negative [facility] Comment on above: Order Comment: Name Collection Type:: Clean-Voided Midstream Performed By: #### E SR, CBC, ADDONUAPLUS, HEPATIC, CREAT, MG, CRP #### [address] pH (U) 5.5 [pH] Normal 5.0-9.0 [facility] Comment on above: Order Comment: Name Collection Type:: Clean-Voided Midstream Performed By: #### E SR, CBC, ADDONUAPLUS, HEPATIC, CREAT, MG, CRP #### [address] Protein,Urine Negative Normal Negative [facility] Comment on above: Order Comment: Name Collection Type:: Clean-Voided Midstream Performed By: #### E SR, CBC, ADDONUAPLUS, HEPATIC, CREAT, MG, CRP #### [address] RBC,Urine 3-4 Normal 0-4 [facility] Comment on above: Order Comment: Name Collection Type:: Clean-Voided Midstream Performed By: #### E SR, CBC, ADDONUAPLUS, HEPATIC, CREAT, MG, CRP #### [facility] [address] Specificy [place],Urine 1.014 Normal 1.001-1.03 0 [facility] Comment on above: Order Comment: Name Collection Type:: Clean-Voided Midstream Performed By: #### E SR, CBC, ADDONUAPLUS, HEPATIC, CREAT, MG, CRP #### [facility] [address] Urobilinogen,Urine Normal Normal Normal [facility] Comment on above: Order Comment: Name Collection Type:: Clean-Voided Midstream Performed By: #### E SR, CBC, ADDONUAPLUS, HEPATIC, CREAT, MG, CRP #### [facility] [address] [place] [address] WBC,Urine 3-4 Normal 0-4 [facility] Comment on above: Order Comment: Name Collection Type:: Clean-Voided Midstream Performed By: #### E SR, CBC, ADDONUAPLUS, HEPATIC, CREAT, MG, CRP #### [facility] [address] [place] [address] Eosinophils Auto (Bld) [#/Vo l]Ordered By: Santana Williamson on 09-27-2024 Eosinophils (Bld) [#/Vol] Automated eosinophil count 0.0-0.45 [facility] Eosinophils/100 WBC Auto (Bl d)Ordered By: Santana Williamson on 09-27-2024 Eosinophils/100 WBC (Bld) Automated eosinophil % . [facility] Epithelial cells.squamous [# /area] in Urine sediment by Automated countOrdered By: Santana Williamson on 09-27-2024 Epithelial cells.squamous Auto (Urine sed) [#/Area] Epithelial cells.squamous [#/area] in Urine sediment by Automated count [facility] Erythrocyte Sedimentation Ra francie 09-27-2024 ESR (Bld) [Velocity] 7 mm/h Normal 0-29 [facility] Comment on above: Result Comment: PERF ORMED BY: [facility] [address] [place] [address] PATHOLOGIST VENDOR SPECIALIST LAURA GLOVER M.D. Performed By: #### E SR, CBC, ADDONUAPLUS, HEPATIC, CREAT, MG, CRP #### [facility] [address] Erythrocyte distribution wid th Auto (RBC) [Ratio]Ordered By: Santana Williamson on 09-27-2024 Erythrocyte distribution width (RBC) [Ratio] Erythrocyte distribution width [Ratio] by Automated count 11.9-15.3 [facility] Erythrocyte sedimentation ra te by Photometric methodOrdered By: Santana Williamson on 09-27-2024 ESR Photometric method (Bld) [Velocity] Erythrocyte sedimentation rate by Photometric method 0-29 [facility] Erythrocytes [#/area] in Uri ne sediment by Automated countOrdered By: Santana Williamson on 09-27-2024 RBC Auto (Urine sed) [#/Area] Erythrocytes [#/area] in Urine sediment by Automated count 0-4 [facility] Globulin Calc (S) [Mass/Vol] Ordered By: Santana Williamson on 09-27-2024 Globulin (S) [Mass/Vol] Serum globulin measurement by calculation (mass/volume) [facility] Glucose [Mass/volume] in Uri ne by Test stripOrdered By: Santana Williamson on 09-27-2024 Glucose Test strip (U) [Mass/Vol] Glucose [Mass/volume] in Urine by Test strip Normal [facility] Hematocrit Auto (Bld) [Volum e fraction]Ordered By: Santana Williamson on 09-27-2024 Hematocrit (Bld) [Volume fraction] Hematocrit [Volume Fraction] of Blood by Automated count 34.0-46.4 [facility] Hemoglobin Test strip Ql (U) Ordered By: Santana Williamson on 09-27-2024 Hemoglobin Ql (U) Hemoglobin [Presence ] in Urine by Test strip Negative [facility] Hemoglobin [Mass/volume] in BloodOrdered By: Santana Williamson on 09-27-2024 Hemoglobin (Bld) [Mass/Vol] Hemoglobin [Mass/volume] in Blood 11.8-15.4 [facility] Hepatic Panelon 09-27-2024 Albumin [Mass/Vol] 3.5 g/dL Normal 3.5-5.7 [facility] Comment on above: Performed By: #### E SR, CBC, ADDONUAPLUS, HEPATIC, CREAT, MG, CRP #### [address] Albumin/Globulin [Mass ratio] 1.7 {ratio} Normal [facility] Comment on above: Performed By: #### E SR, CBC, ADDONUAPLUS, HEPATIC, CREAT, MG, CRP #### [address] ALP [Catalytic activity/Vol] 95 U/L Normal 34-104 [facility] Comment on above: Performed By: #### E SR, CBC, ADDONUAPLUS, HEPATIC, CREAT, MG, CRP #### [address] ALT [Catalytic activity/Vol] 49 U/L Normal 7-52 [facility] Comment on above: Performed By: #### E SR, CBC, ADDONUAPLUS, HEPATIC, CREAT, MG, CRP #### [address] AST [Catalytic activity/Vol] 41 U/L High 13-39 [facility] Comment on above: Performed By: #### E SR, CBC, ADDONUAPLUS, HEPATIC, CREAT, MG, CRP #### [address] Bilirubin [Mass/Vol] 0.4 mg/dL Normal 0.3-1.0 [facility] Comment on above: Performed By: #### E SR, CBC, ADDONUAPLUS, HEPATIC, CREAT, MG, CRP #### [address] Bilirubin,Indirect 0.3 mg/dL Normal [facility] Comment on above: Performed By: #### E SR, CBC, ADDONUAPLUS, HEPATIC, CREAT, MG, CRP #### [facility] [address] Bilirubin.indirect [Mass/Vol] 0.10 mg/dL Normal 0.03-0.18 [facility] Comment on above: Performed By: #### E SR, CBC, ADDONUAPLUS, HEPATIC, CREAT, MG, CRP #### [facility] [address] Globulin (S) [Mass/Vol] 2.1 g/dL Normal [facility] Comment on above: Performed By: #### E SR, CBC, ADDONUAPLUS, HEPATIC, CREAT, MG, CRP #### [facility] [address] Protein [Mass/Vol] 5.6 g/dL Low 6.4-8.9 [facility] Comment on above: Performed By: #### E SR, CBC, ADDONUAPLUS, HEPATIC, CREAT, MG, CRP #### [facility] [address] Hyaline casts [#/area] in Ur ine sediment by Automated countOrdered By: Santana Williamson on 09-27-2024 Hyaline casts Auto (Urine sed) [#/Area] Hyaline casts [#/area] in Urine sediment by Automated count 0-8 [facility] Ketones Test strip Ql (U)Ord ered By: Santana Williamson on 09-27-2024 Ketones Ql (U) Ketones [Presence] i n Urine by Test strip Negative [facility] Leukocyte esterase [Presence ] in Urine by Test stripOrdered By: Santana Williamson on 09-27-2024 Leukocyte esterase Test strip Ql (U) Leukocyte esterase [Presence] in Urine by Test strip Negative [facility] Leukocytes [#/area] in Urine sediment by Automated countOrdered By: Santana Williamson on 09-27-2024 WBC Auto (Urine sed) [#/Area] Leukocytes [#/area] in Urine sediment by Automated count 0-4 [facility] Leukocytes [#/volume] correc zee for nucleated erythrocytes in Blood by Automated counOrdered By: Santana Williamson on 09-27-2024 WBC corrected for nucl RBC Auto (Bld) [#/Vol] Leukocytes [#/volume] corrected for nucleated erythrocytes in Blood by Automated coun 3.8-11.6 [facility] Lymphocytes Auto (Bld) [#/Vo l]Ordered By: Santana Williamson on 09-27-2024 Lymphocytes (Bld) [#/Vol] Lymphocytes [#/volume] in Blood by Automated count 1.00-4.8 [facility] Lymphocytes/100 WBC Auto (Bl d)Ordered By: Santana Williamson on 09-27-2024 Lymphocytes/100 WBC (Bld) Lymphocytes/100 leukocytes in Blood by Automated count . [facility] MCH Auto (RBC) [Entitic mass ]Ordered By: Santana Williamson on 09-27-2024 MCH (RBC) [Entitic mass] MCH [Entitic mass] by Automated count 24.7-34.3 [facility] MCHC Auto (RBC) [Mass/Vol]Or dered By: Santana Williamson on 09-27-2024 MCHC (RBC) [Mass/Vol] MCHC [Mass/volume] by Automated count 32.0-35.0 [facility] MCV Auto (RBC) [Entitic vol] Ordered By: Santana Williamson on 09-27-2024 MCV (RBC) [Entitic vol] MCV [Entitic volume] by Automated count 80-100 [facility] Magnesiumon 09-27-2024 Magnesium [Mass/Vol] 2.0 mg/dL Normal 1.9-2.7 [facility] Comment on above: Performed By: #### E SR, CBC, ADDONUAPLUS, HEPATIC, CREAT, MG, CRP #### [facility] [address] [place] [address] Magnesium [Mass/volume] in S maurilio or PlasmaOrdered By: Santana Williamson on 09-27-2024 Magnesium [Mass/Vol] Magnesium [Mass/vol ume] in Serum or Plasma 1.9-2.7 [facility] Monocytes Auto (Bld) [#/Vol] Ordered By: Santana Williamson on 09-27-2024 Monocytes (Bld) [#/Vol] Automated blood monocyte count 0.0-0.8 [facility] Monocytes/100 WBC Auto (Bld) Ordered By: Santana Williamson on 09-27-2024 Monocytes/100 WBC (Bld) Automated monocyte % . [facility] Mucus [Presence] in Urine by AutomatedOrdered By: Santana Williamson on 09-27-2024 Mucus Auto Ql (U) Mucus [Presence] in Urine by Automated [facility] Neutrophils Auto (Bld) [#/Vo l]Ordered By: Santana Williamson on 09-27-2024 Neutrophils (Bld) [#/Vol] Neutrophils [#/volume] in Blood by Automated count 1.8-7.7 [facility] Neutrophils/100 WBC Auto (Bl d)Ordered By: Santana Williamson on 09-27-2024 Neutrophils/100 WBC (Bld) Automated neutrophil % . [facility] Nitrite Test strip Ql (U)Ord ered By: Santana Williamson on 09-27-2024 Nitrite Ql (U) Nitrite [Presence] i n Urine by Test strip Negative [facility] No Panel InformationOrdered By: Santana Williamson on 09-27-2024 Estimated GFR (CKD-EPI) > 60.0 mL/Min [facility] Creatinine Clearance (Chem N/A [facility] Nucleated erythrocytes [Pres ence] in Blood by Automated countOrdered By: Santana Williamson on 09-27-2024 Nucleated RBC Auto Ql (Bld) Nucleated erythrocytes [Presence] in Blood by Automated count 0-0.5 [facility] Platelet mean volume Auto (B ld) [Entitic vol]Ordered By: Santana Williamson on 09-27-2024 Platelet mean volume (Bld) [Entitic vol] Platelet mean volume [Entitic volume] in Blood by Automated count 6.3-10.7 [facility] Platelets Auto (Bld) [#/Vol] Ordered By: Santana Williamson on 09-27-2024 Platelets (Bld) [#/Vol] Platelets [#/volume] in Blood by Automated count 150-450 [facility] Protein Test strip (U) [Mass /Vol]Ordered By: Santana Williamson on 09-27-2024 Protein (U) [Mass/Vol] Protein [Mass/vol ume] in Urine by Test strip Negative [facility] Protein [Mass/volume] in Ser um or PlasmaOrdered By: Santana Williamson on 09-27-2024 Protein [Mass/Vol] Protein [Mass/volume ] in Serum or Plasma Low 6.4-8.9 [facility] RBC Auto (Bld) [#/Vol]Ordere d By: Santana Williamson on 09-27-2024 RBC (Bld) [#/Vol] Erythrocytes [#/volu me] in Blood by Automated count 3.60-5.00 [facility] Serum or plasma albumin/glob ulin mass ratioOrdered By: Santana Williamson on 09-27-2024 Albumin/Globulin [Mass ratio] Serum or plasma albumin/globulin mass ratio [facility] Serum or plasma non-glucuron idated bilirubin measurement (mass/volume)Ordered By: Santana Williamson on 09-27-2024 Bilirubin.indirect [Mass/Vol] Serum or plasma non-glucuronidated bilirubin measurement (mass/volume) [facility] Specific gravity Test strip (U) [Rel density]Ordered By: Santana Williamson on 09-27-2024 Specific gravity (U) [Rel density] Specific gravity of Urine by Test strip 1.001-1.03 0 [facility] Urobilinogen Test strip (U) [Mass/Vol]Ordered By: Santana Williamson on 09-27-2024 Urobilinogen (U) [Mass/Vol] Urobilinogen [Mass/volume] in Urine by Test strip Normal [facility] WBC Auto (Bld) [#/Vol]Ordere d By: Santana Williamson on 09-27-2024 WBC (Bld) [#/Vol] Leukocytes [#/volume ] in Blood by Automated count 3.8-11.6 [facility] pH Test strip (U)Ordered By: Santana Williamson on 09-27-2024 pH (U) pH of Urine by Test strip 5.0-9.0 [facility] INR Coag (Bld) [Relative eden e]on 09-06-2024 INR 3.1 [facility] Healthcare COVID Cepheidon 08-03-2024 SARS-CoV-2 (COVID-19) RNA RUDY+probe Ql (Unsp spec) COVID Cepheid [facility] Laboratory - Microbiology an d Antimicrobial susceptibilityon 08-03-2024 SARS-CoV-2 (COVID-19) RNA RUDY+probe Ql (Unsp spec) Positive [facility] No Panel Informationon 08-03 POC Influenza A (PCR) Negative [facility] POC Influenza B (PCR) Negative [facility] MR shoulder RT wo conon 10-0 MR shoulder RT wo con [facility] [place] [address] MRI Report Signed Patient: Rebecca Herrera MR#: [id number] : 1950 Acct:[id number] Age/Sex: 73 / F ADM Date: 05/11/24 Loc: [facility] Room: Type: [facility] Attending Dr: Helena Liao NP-C Copies to: DARIUS Amato Ordering Provider: DARIUS Amato Date of Service: 05/11/24 MR/MR shoulder RT wo con: S46.211A - Strain of muscle, fascia and tendon of other p... MRI right Shoulder without contrast TECHNIQUE: Multiplanar T1 and T2-weighted imaging obtained without contrast. HISTORY: Right shoulder pain anteriorly and posteriorly. Radiation down the right arm. 5 years duration. No injury. COMPARISON: Plain film imaging 02/27/2024 BONE MARROW EDEMA: None FRACTURE: None AC JOINT: Degenerative change SHOULDER ROOF LIGAMENTS: The coracoacromial and coracoclavicular ligaments are intact. ROTATOR CUFF: Complete tears of the supraspinatus and infraspinatus tendons with retraction to the acromioclavicular joint identified. Edematous changes of the supraspinatus and infraspinatus muscle. Adequate muscle volume. Tendinosis/partial tear of the subscapularis tendon. Intact teres minor tendon. ROTATOR CUFF INTERVAL: Retracted infraspinatus tendon within the rotator cuff interval. BURSAL FLUID: Communicating subacromial subdeltoid bursal fluid identified. GLENOID: Intact BICEPS LABRAL COMPLEX: Retracted tear long head of biceps tendon LONG HEAD OF BICEPS TENDON: A concern for tear of the long head of biceps tendon with medial subluxation of the bicipital groove. This is at the level of the biceps basia. GLENOHUMERAL LIGAMENTS: The superior glenohumeral ligament is intact. The middle glenohumeral ligament is intact. The anterior and posterior glenohumeral ligaments are intact. JOINT EFFUSION: Large joint effusion MUSCLES: Edematous changes NO SUBCUTANEOUS TISSUES: No subcutaneous abnormalities identified. MR/MR shoulder RT wo con IMPRESSION: Complete retracted tears of the supraspinatus and infraspinatus tendons. Edematous changes of the musculature with a normal volume. Tendinosis/partial tear of subscapularis tendon. Complete tear long head of biceps tendon with medial displacement. Large joint effusion. Impression dictated by: Steven Dos Santos M.D.05/11/2024 10:01 AM Dictation Location: [place] [address] Transcribed By: [facility] 05/11/24 1001 Dictated By: Steven Dos Santos DO 05/11/24 0953 Signed By: 05/11/24 1001 Normal [facility] INR Coag (Bld) [Relative eden e]on 05-10-2024 INR 1.8 [facility] Healthcare [facility] Automated basophil %Ordered By: Santana Williamson on 04-26-2024 Basophils/100 WBC (Bld) 0.5 % Normal . [facility] Comment on above: Performed By: #### E SR, CBC, ADDONUAPLUS, HEPATIC, CREAT, MG, CRP #### [facility] [address] Automated basophil countOrde red By: Santana Williamson on 04-26-2024 Basophils (Bld) [#/Vol] 0.0 10*3/uL Normal 0.0-0.2 [facility] Comment on above: Performed By: #### E SR, CBC, ADDONUAPLUS, HEPATIC, CREAT, MG, CRP #### [facility] [address] Automated blood monocyte cou ntOrdered By: Santana Williamson on 04-26-2024 Monocytes (Bld) [#/Vol] 0.5 10*3/uL Normal 0.0-0.8 [facility] Comment on above: Performed By: #### E SR, CBC, ADDONUAPLUS, HEPATIC, CREAT, MG, CRP #### [facility] [address] Automated eosinophil %Ordere d By: Santana Williamson on 04-26-2024 Eosinophils/100 WBC (Bld) 4.0 % Normal . [facility] Comment on above: Performed By: #### E SR, CBC, ADDONUAPLUS, HEPATIC, CREAT, MG, CRP #### [address] Automated eosinophil countOr dered By: Santana Williamson on 04-26-2024 Eosinophils (Bld) [#/Vol] 0.2 10*3/uL Normal 0.0-0.45 [facility] Comment on above: Performed By: #### E SR, CBC, ADDONUAPLUS, HEPATIC, CREAT, MG, CRP #### [address] Automated monocyte %Ordered By: Santana Williamson on 04-26-2024 Monocytes/100 WBC (Bld) 8.7 % Normal . [facility] Comment on above: Performed By: #### E SR, CBC, ADDONUAPLUS, HEPATIC, CREAT, MG, CRP #### [address] Automated neutrophil %Ordere d By: Santana Williamson on 04-26-2024 Neutrophils/100 WBC (Bld) 70.3 % Normal . [facility] Comment on above: Performed By: #### E SR, CBC, ADDONUAPLUS, HEPATIC, CREAT, MG, CRP #### [address] Bacteria [Presence] in Urine by AutomatedOrdered By: Santana Williamson on 04-26-2024 Bacteria Auto Ql (U) None seen [HPF] None Seen [facility] Bilirubin Test strip Ql (U)O rdered By: Santana Williamson on 04-26-2024 Bilirubin Ql (U) Negative Negative [facility] C reactive protein [Mass/vol ume] in Serum or PlasmaOrdered By: Santana Williamson on 04-26-2024 CRP [Mass/Vol] < 0.5 mg/dL 0.0-0.5 [facility] C-Reactive Proteinon 024 CRP [Mass/Vol] mg/L Normal 0.0-0.5 [facility] Comment on above: Result Comment: PERF ORMED BY: [place] [address] PATHOLOGIST VENDOR SPECIALIST HANANE CASTRO M.D. Performed By: #### E SR, CBC, ADDONUAPLUS, HEPATIC, CREAT, MG, CRP #### [address] Color of Urine by AutoOrdere d By: Santana Williamson on 04-26-2024 Color (U) Colorless Normal Yellow [facility] Comment on above: Order Comment: Name Collection Type:: Clean-Voided Midstream Performed By: #### E SR, CBC, ADDONUAPLUS, HEPATIC, CREAT, MG, CRP #### [address] Complete Blood Count Auto Di ffon 04-26-2024 Mean Corpuscular HGB Conc 34.1 g/dL Normal 32.0-35.0 [facility] Comment on above: Performed By: #### E SR, CBC, ADDONUAPLUS, HEPATIC, CREAT, MG, CRP #### [facility] [address] [place] [address] NRBC% 0.1 /100{WBC} Normal 0-0.5 [facility] Comment on above: Performed By: #### E SR, CBC, ADDONUAPLUS, HEPATIC, CREAT, MG, CRP #### [address] Creatinineon 04-26-2024 GFR/1.73 sq M.predicted MDRD (S/P/Bld) [Vol rate/Area] mL/min/{1.73_m2} Normal [facility] Comment on above: Performed By: #### E SR, CBC, ADDONUAPLUS, HEPATIC, CREAT, MG, CRP #### [address] Creatinine [Mass/volume] in Serum or PlasmaOrdered By: Santana Williamson on 04-26-2024 Creatinine [Mass/Vol] 0.64 mg/dL Normal 0.60-1.20 [facility] Comment on above: Performed By: #### E SR, CBC, ADDONUAPLUS, HEPATIC, CREAT, MG, CRP #### [address] Dipstick and Microscopicon 0 04-26-2024 Bacteria,Urine None Seen Normal None Seen [facility] Comment on above: Order Comment: Name Collection Type:: Clean-Voided Midstream Performed By: #### E SR, CBC, ADDONUAPLUS, HEPATIC, CREAT, MG, CRP #### [address] Bilirubin,Urine Negative Normal Negative [facility] Comment on above: Order Comment: Name Collection Type:: Clean-Voided Midstream Performed By: #### E SR, CBC, ADDONUAPLUS, HEPATIC, CREAT, MG, CRP #### [address] Glucose Ql (U) Normal Normal Normal [facility] Comment on above: Order Comment: Name Collection Type:: Clean-Voided Midstream Performed By: #### E SR, CBC, ADDONUAPLUS, HEPATIC, CREAT, MG, CRP #### [address] Hyaline Casts,Urine None Normal 0-8 [facility] Comment on above: Order Comment: Name Collection Type:: Clean-Voided Midstream Result Comment: PERF ORMED BY: [place] [address] PATHOLOGIST VENDOR SPECIALIST HANANE CASTRO M.D. Performed By: #### E SR, CBC, ADDONUAPLUS, HEPATIC, CREAT, MG, CRP #### [address] Nitrite,Urine Negative Normal Negative [facility] Comment on above: Order Comment: Name Collection Type:: Clean-Voided Midstream Performed By: #### E SR, CBC, ADDONUAPLUS, HEPATIC, CREAT, MG, CRP #### [address] Occult Blood,Urine Negative Normal Negative [facility] Comment on above: Order Comment: Name Collection Type:: Clean-Voided Midstream Performed By: #### E SR, CBC, ADDONUAPLUS, HEPATIC, CREAT, MG, CRP #### [address] [address] Protein,Urine Negative Normal Negative [facility] Comment on above: Order Comment: Name Collection Type:: Clean-Voided Midstream Performed By: #### E SR, CBC, ADDONUAPLUS, HEPATIC, CREAT, MG, CRP #### [address] RBC,Urine 1-2 Normal 0-4 [facility] Comment on above: Order Comment: Name Collection Type:: Clean-Voided Midstream Performed By: #### E SR, CBC, ADDONUAPLUS, HEPATIC, CREAT, MG, CRP #### [address] Specificy [place],Urine 1.005 Normal 1.001-1.03 0 [facility] Comment on above: Order Comment: Name Collection Type:: Clean-Voided Midstream Performed By: #### E SR, CBC, ADDONUAPLUS, HEPATIC, CREAT, MG, CRP #### [address] Squamous Epithelial Cell,Urine 1-2 Normal 0-2 [facility] Comment on above: Order Comment: Name Collection Type:: Clean-Voided Midstream Performed By: #### E SR, CBC, ADDONUAPLUS, HEPATIC, CREAT, MG, CRP #### [address] Urobilinogen,Urine Normal Normal Normal [facility] Comment on above: Order Comment: Name Collection Type:: Clean-Voided Midstream Performed By: #### E SR, CBC, ADDONUAPLUS, HEPATIC, CREAT, MG, CRP #### [address] WBC,Urine 1-2 Normal 0-4 [facility] Comment on above: Order Comment: Name Collection Type:: Clean-Voided Midstream Performed By: #### E SR, CBC, ADDONUAPLUS, HEPATIC, CREAT, MG, CRP #### [address] Epithelial cells.squamous [# /area] in Urine sediment by Automated countOrdered By: Santana Williamson on 04-26-2024 Epithelial cells.squamous Auto (Urine sed) [#/Area] 1-2 [HPF] 0-2 [facility] Erythrocyte Sedimentation Ra francie 04-26-2024 ESR (Bld) [Velocity] 11 mm/h Normal 0-29 [facility] Comment on above: Result Comment: PERF ORMED BY: [place] [address] PATHOLOGIST VENDOR SPECIALIST HANANE CASTRO M.D. Performed By: #### E SR, CBC, ADDONUAPLUS, HEPATIC, CREAT, MG, CRP #### [address] Erythrocyte distribution wid th [Ratio] by Automated countOrdered By: Santana Williamson on 04-26-2024 Erythrocyte distribution width (RBC) [Ratio] 13.5 % Normal 11.9-15.3 [facility] Comment on above: Performed By: #### E SR, CBC, ADDONUAPLUS, HEPATIC, CREAT, MG, CRP #### [address] Erythrocyte sedimentation ra te by Photometric methodOrdered By: Santana Williamson on 04-26-2024 ESR Photometric method (Bld) [Velocity] 11 mm/hr 0-29 [facility] Erythrocytes [#/area] in Uri ne sediment by Automated countOrdered By: Santana Williamson on 04-26-2024 RBC Auto (Urine sed) [#/Area] 1-2 [HPF] 0-4 [facility] Erythrocytes [#/volume] in B lood by Automated countOrdered By: Santana Williamson on 04-26-2024 RBC (Bld) [#/Vol] 4.36 10*6/uL Normal 3.60-5.00 [facility] Comment on above: Performed By: #### E SR, CBC, ADDONUAPLUS, HEPATIC, CREAT, MG, CRP #### [facility] [address] [place] [address] [place] Glucose [Mass/volume] in Uri ne by Test stripOrdered By: Santana Williamson on 04-26-2024 Glucose Test strip (U) [Mass/Vol] Normal mg/dL Normal [facility] Hematocrit [Volume Fraction] of Blood by Automated countOrdered By: Santana Williamson on 04-26-2024 Hematocrit (Bld) [Volume fraction] 42.1 % Normal 34.0-46.4 [facility] Comment on above: Performed By: #### E SR, CBC, ADDONUAPLUS, HEPATIC, CREAT, MG, CRP #### [facility] [address] Hemoglobin Test strip Ql (U) Ordered By: Santana Williamson on 04-26-2024 Hemoglobin Ql (U) Negative Negative [facility] Hemoglobin [Mass/volume] in BloodOrdered By: Santana Williamson on 04-26-2024 Hemoglobin (Bld) [Mass/Vol] 14.3 g/dL Normal 11.8-15.4 [facility] Comment on above: Performed By: #### E SR, CBC, ADDONUAPLUS, HEPATIC, CREAT, MG, CRP #### [facility] [address] [place] [address] [place] Hyaline casts [#/area] in Ur ine sediment by Automated countOrdered By: Santana Williamson on 04-26-2024 Hyaline casts Auto (Urine sed) [#/Area] None [LPF] 0-8 [facility] Ketones [Presence] in Urine by Test stripOrdered By: Santana Williamson on 04-26-2024 Ketones Ql (U) Negative Normal Negative [facility] Comment on above: Order Comment: Name Collection Type:: Clean-Voided Midstream Performed By: #### E SR, CBC, ADDONUAPLUS, HEPATIC, CREAT, MG, CRP #### [facility] [address] Leukocyte esterase [Presence ] in Urine by Test stripOrdered By: Santana Williamson on 04-26-2024 Leukocyte esterase Test strip Ql (U) Negative Normal Negative [facility] Comment on above: Order Comment: Name Collection Type:: Clean-Voided Midstream Performed By: #### E SR, CBC, ADDONUAPLUS, HEPATIC, CREAT, MG, CRP #### [facility] [address] [place] [address] [place] Leukocytes [#/area] in Urine sediment by Automated countOrdered By: Santana Williamson on 04-26-2024 WBC Auto (Urine sed) [#/Area] 1-2 [HPF] 0-4 [facility] Leukocytes [#/volume] correc zee for nucleated erythrocytes in Blood by Automated counOrdered By: Santana Williamson on 04-26-2024 WBC corrected for nucl RBC Auto (Bld) [#/Vol] 5.9 10*3/uL 3.8-11.6 [facility] Leukocytes [#/volume] in Blo od by Automated countOrdered By: Santana Williamson on 04-26-2024 WBC (Bld) [#/Vol] 5.9 10*3/uL Normal 3.8-11.6 [facility] Comment on above: Performed By: #### E SR, CBC, ADDONUAPLUS, HEPATIC, CREAT, MG, CRP #### [facility] [address] [place] [address] [place] Lymphocytes [#/volume] in Bl ood by Automated countOrdered By: Santana Williamson on 04-26-2024 Lymphocytes (Bld) [#/Vol] 1.0 10*3/uL Normal 1.00-4.8 [facility] Comment on above: Performed By: #### E SR, CBC, ADDONUAPLUS, HEPATIC, CREAT, MG, CRP #### [facility] [address] [place] [address] Lymphocytes/100 leukocytes i n Blood by Automated countOrdered By: Santana Williamson on 04-26-2024 Lymphocytes/100 WBC (Bld) 16.5 % Normal . [facility] Comment on above: Performed By: #### E SR, CBC, ADDONUAPLUS, HEPATIC, CREAT, MG, CRP #### [address] MCH [Entitic mass] by Automa zee countOrdered By: Santana Williamson on 04-26-2024 MCH (RBC) [Entitic mass] 32.9 pg Normal 24.7-34.3 [facility] Comment on above: Performed By: #### E SR, CBC, ADDONUAPLUS, HEPATIC, CREAT, MG, CRP #### [address] MCHC Auto (RBC) [Mass/Vol]Or dered By: Santana Williamson on 04-26-2024 MCHC (RBC) [Mass/Vol] 34.1 g/dL 32.0-35.0 [facility] MCV [Entitic volume] by Auto mated countOrdered By: Santana Williamson on 04-26-2024 MCV (RBC) [Entitic vol] 96.6 fL Normal 80-100 [facility] Comment on above: Performed By: #### E SR, CBC, ADDONUAPLUS, HEPATIC, CREAT, MG, CRP #### [address] Neutrophils [#/volume] in Bl ood by Automated countOrdered By: Santana Williamson on 04-26-2024 Neutrophils (Bld) [#/Vol] 4.2 10*3/uL Normal 1.8-7.7 [facility] Comment on above: Performed By: #### E SR, CBC, ADDONUAPLUS, HEPATIC, CREAT, MG, CRP #### [address] Nitrite Test strip Ql (U)Ord ered By: Santana Williamson on 04-26-2024 Nitrite Ql (U) Negative Negative [facility] No Panel InformationOrdered By: Santana Williamson on 04-26-2024 Estimated GFR (CKD-EPI) > 60.0 mL/Min [facility] Creatinine Clearance (Chem N/A [facility] Nucleated erythrocytes [Pres ence] in Blood by Automated countOrdered By: Santana Williamson on 04-26-2024 Nucleated RBC Auto Ql (Bld) 0.1 /100{WBC} 0-0.5 [facility] Platelet mean volume [Entiti c volume] in Blood by Automated countOrdered By: Santana Williamson on 04-26-2024 Platelet mean volume (Bld) [Entitic vol] 9.9 fL Normal 6.3-10.7 [facility] Comment on above: Performed By: #### E SR, CBC, ADDONUAPLUS, HEPATIC, CREAT, MG, CRP #### [facility] [address] [place] [address] [place] Platelets [#/volume] in Bloo d by Automated countOrdered By: Santana Williamson on 04-26-2024 Platelets (Bld) [#/Vol] 185 10*3/uL Normal 150-450 [facility] Comment on above: Performed By: #### E SR, CBC, ADDONUAPLUS, HEPATIC, CREAT, MG, CRP #### [facility] [address] Protein Test strip (U) [Mass /Vol]Ordered By: Santana Williamson on 04-26-2024 Protein (U) [Mass/Vol] Negative Negative [facility] Specific gravity Test strip (U) [Rel density]Ordered By: Santana Williamson on 04-26-2024 Specific gravity (U) [Rel density] 1.005 1.001-1.03 0 [facility] Urine appearanceOrdered By: Santana Williamson on 04-26-2024 Appearance (U) Clear Normal Clear [facility] Comment on above: Order Comment: Name Collection Type:: Clean-Voided Midstream Performed By: #### E SR, CBC, ADDONUAPLUS, HEPATIC, CREAT, MG, CRP #### [facility] [address] Urobilinogen Test strip (U) [Mass/Vol]Ordered By: Santana Williamson on 04-26-2024 Urobilinogen (U) [Mass/Vol] Normal mg/dL Normal [facility] pH of Urine by Test stripOrd ered By: Santana Williamson on 04-26-2024 pH (U) 5.5 [pH] Normal 5.0-9.0 [facility] Comment on above: Order Comment: Name Collection Type:: Clean-Voided Midstream Performed By: #### E SR, CBC, ADDONUAPLUS, HEPATIC, CREAT, MG, CRP #### [facility] [address] Alanine aminotransferase [En zymatic activity/volume] in Serum or PlasmaOrdered By: Robert Ledezma on 04-19-2024 ALT [Catalytic activity/Vol] 32 U/L Normal 7-52 [facility] Comment on above: Performed By: #### F E and TIBC, ALBERT, CMP, CBC #### [facility] [address] [place] [address] [place] Albumin [Mass/volume] in Ser um or Plasma by Bromocresol green (BCG) dye binding methoOrdered By: Robert Ledezma on 04-19-2024 Albumin BCG dye [Mass/Vol] 3.8 g/dL 3.5-5.7 [facility] Alkaline phosphatase [Enzyma tic activity/volume] in Serum or PlasmaOrdered By: Robert Ledezma on 04-19-2024 ALP [Catalytic activity/Vol] 97 U/L Normal 34-104 [facility] Comment on above: Performed By: #### F E and TIBC, ALBERT, CMP, CBC #### [facility] [address] [place] [address] [place] Aspartate aminotransferase [ Enzymatic activity/volume] in Serum or PlasmaOrdered By: Robert Ledezma on 04-19-2024 AST [Catalytic activity/Vol] 26 U/L Normal 13-39 [facility] Comment on above: Performed By: #### F E and TIBC, ALBERT, CMP, CBC #### [address] Automated basophil %Ordered By: Robert Ledezma on 04-19-2024 Basophils/100 WBC (Bld) 1.0 % Normal . [facility] Comment on above: Performed By: #### F E and TIBC, ALBERT, CMP, CBC #### [address] Automated basophil countOrde red By: Robert Ledezma on 04-19-2024 Basophils (Bld) [#/Vol] 0.0 10*3/uL Normal 0.0-0.2 [facility] Comment on above: Result Comment: PERF ORMED BY: [place] [address] PATHOLOGIST VENDOR SPECIALIST HANANE CASTRO M.D. Performed By: #### F E and TIBC, ALBERT, CMP, CBC #### [address] Automated blood monocyte cou ntOrdered By: Robert Ledezma on 04-19-2024 Monocytes (Bld) [#/Vol] 0.5 10*3/uL Normal 0.0-0.8 [facility] Comment on above: Performed By: #### F E and TIBC, ALBERT, CMP, CBC #### [address] Automated eosinophil %Ordere d By: Robert Ledezma on 04-19-2024 Eosinophils/100 WBC (Bld) 5.2 % Normal . [facility] Comment on above: Performed By: #### F E and TIBC, ALBERT, CMP, CBC #### [address] Automated eosinophil countOr dered By: Robert Ledezma on 04-19-2024 Eosinophils (Bld) [#/Vol] 0.2 10*3/uL Normal 0.0-0.45 [facility] Comment on above: Performed By: #### F E and TIBC, ALBERT, CMP, CBC #### [address] [place] [address] [place] Automated monocyte %Ordered By: Robert Ledezma on 04-19-2024 Monocytes/100 WBC (Bld) 10.1 % Normal . [facility] Comment on above: Performed By: #### F E and TIBC, ALBERT, CMP, CBC #### [facility] [address] Automated neutrophil %Ordere d By: Robert Ledezma on 04-19-2024 Neutrophils/100 WBC (Bld) 63.2 % Normal . [facility] Comment on above: Performed By: #### F E and TIBC, ALBERT, CMP, CBC #### [facility] [address] Bilirubin.total [Mass/volume ] in Serum or PlasmaOrdered By: Robert Ledezma on 04-19-2024 Bilirubin [Mass/Vol] 0.5 mg/dL Normal 0.3-1.0 [facility] Comment on above: Performed By: #### F E and TIBC, ALBERT, CMP, CBC #### [facility] [address] CBC W Auto Differential pane l (Bld)on 04-19-2024 Basophils (Bld) [#/Vol] 0.0 10*3/uL 0.0 - 0.2 10*3/uL [facility] Basophils/100 WBC Manual cnt (Syn fld) 1.0 % . [facility] Eosinophils (Bld) [#/Vol] 0.2 10*3/uL 0.0 - 0.45 10*3/uL [facility] Eosinophils/100 WBC Manual cnt (Syn fld) 5.2 % . [facility] Erythrocyte distribution width (RBC) [Ratio] 13.4 % 11.9 - 15.3 % [facility] Hematocrit (Bld) [Volume fraction] 41.3 % 34.0 - 46.4 % [facility] Hemoglobin (Bld) [Mass/Vol] 14.0 g/dL 11.8 - 15.4 g/dL [facility] Interpretation and review of laboratory results Abnormal [facility] Lymphocytes (Bld) [#/Vol] 0.9 10*3/uL Low 1.00 - 4.8 10*3/uL [facility] Lymphocytes/100 WBC Manual cnt (Syn fld) 20.5 % . [facility] MCH (RBC) [Entitic mass] 32.5 pg 24.7 - 34.3 pg [facility] MCHC (RBC) [Mass/Vol] 33.8 g/dL 32.0 - 35.0 g/dL [facility] MCV (RBC) [Entitic vol] 96.3 fL 80 - 100 fL [facility] Monocytes (Bld) [#/Vol] 0.5 10*3/uL 0.0 - 0.8 10*3/uL [facility] Monocytes+Macrophages/ 100 WBC Manual cnt (Syn fld) 10.1 % . [facility] Neutrophils (Bld) [#/Vol] 2.9 10*3/uL 1.8 - 7.7 10*3/uL [facility] Neutrophils/100 WBC Manual cnt (Syn fld) 63.2 % . [facility] NRBC 0.2 /100{WBC} 0 - 0.5 /100{WBC} [facility] Platelet mean volume (Bld) [Entitic vol] 9.4 fL 6.3 - 10.7 fL [facility] Platelets (Bld) [#/Vol] 147 10*3/uL Low 150 - 450 10*3/uL [facility] RBC LM.HPF (Urine sed) [#/Area] 4.29 /[HPF] 3.60 - 5.00 [facility] WBC (Bld) [#/Vol] 4.6 10*3/uL 3.8 - 11.6 10*3/uL [facility] WBC LM.HPF (Urine sed) [#/Area] 4.6 10*3/uL 3.8 - 11.6 10*3/uL [facility] Calcium [Mass/volume] in Ser um or PlasmaOrdered By: Robert Ledezma on 04-19-2024 Calcium [Mass/Vol] 8.6 mg/dL Normal 8.6-10.3 [facility] Comment on above: Performed By: #### F E and TIBC, ALBERT, CMP, CBC #### [address] Carbon dioxide, total [Moles /volume] in Serum or PlasmaOrdered By: Robert Ledezma on 04-19-2024 CO2 [Moles/Vol] 27.4 mmol/L Normal 21.0-31.0 [facility] Comment on above: Performed By: #### F E and TIBC, ALBERT, CMP, CBC #### [address] Chloride [Moles/volume] in S maurilio or PlasmaOrdered By: Robert Ledezma on 04-19-2024 Chloride [Moles/Vol] 108 mmol/L High 98-107 [facility] Comment on above: Performed By: #### F E and TIBC, ALBERT, CMP, CBC #### [address] Complete Blood Count Auto Di ffon 04-19-2024 Mean Corpuscular HGB Conc 33.8 g/dL Normal 32.0-35.0 [facility] Comment on above: Performed By: #### F E and TIBC, LABERT, CMP, CBC #### [address] NRBC% 0.2 /100{WBC} Normal 0-0.5 [facility] Comment on above: Performed By: #### F E and TIBC, ALBERT, CMP, CBC #### [address] Comprehensive Metabolic Pane vinh 04-19-2024 Albumin [Mass/Vol] 3.8 g/dL Normal 3.5-5.7 [facility] Comment on above: Performed By: #### F E and TIBC, ALBERT, CMP, CBC #### [address] Creatinine Clr Calc Pharmacy 64.79 Normal [facility] Comment on above: Performed By: #### F E and TIBC, ALBERT, CMP, CBC #### [address] GFR/1.73 sq M.predicted MDRD (S/P/Bld) [Vol rate/Area] mL/min/{1.73_m2} Normal [facility] Comment on above: Performed By: #### F E and TIBC, ALBERT, CMP, CBC #### [address] Creatinine [Mass/volume] in Serum or PlasmaOrdered By: Robert Ledezma on 04-19-2024 Creatinine [Mass/Vol] 0.65 mg/dL Normal 0.60-1.20 [facility] Comment on above: Performed By: #### F E and TIBC, ALBERT, CMP, CBC #### [address] Erythrocyte distribution wid th [Ratio] by Automated countOrdered By: Robert Ledezma on 04-19-2024 Erythrocyte distribution width (RBC) [Ratio] 13.4 % Normal 11.9-15.3 [facility] Comment on above: Performed By: #### F E and TIBC, ALBERT, CMP, CBC #### [address] Erythrocytes [#/volume] in B lood by Automated countOrdered By: Robert Ledezma on 04-19-2024 RBC (Bld) [#/Vol] 4.29 10*6/uL Normal 3.60-5.00 [facility] Comment on above: Performed By: #### F E and TIBC, ALBERT, CMP, CBC #### [address] Ferritin [Mass/volume] in Se rum or PlasmaOrdered By: Robert Ledezma on 04-19-2024 Ferritin [Mass/Vol] 53.0 ng/mL Normal 11.0-306.8 [facility] Comment on above: Result Comment: PERF ORMED BY: [place] [address] PATHOLOGIST VENDOR SPECIALIST HANANE CASTRO M.D. Performed By: #### E SR, CBC, ADDONUAPLUS, HEPATIC, CREAT, MG, CRP #### [place] [address] [place] Glucose [Mass/volume] in Ser um or PlasmaOrdered By: Robert Ledezma on 04-19-2024 Glucose [Mass/Vol] 78 mg/dL Normal 70-100 [facility] Comment on above: ADA recommended refe rence rangeRandom Glucose Reference Range is dependent on time and content of last meal. Glucose of more than 200 mg/dL in a nonstressed, ambulatory subject supports the diagnosis of Diabetes Mellitus. Result Comment: [place] om Glucose Reference Range is dependent on time and content of last meal. Glucose of more than 200 mg/dL in a nonstressed, ambulatory subject supports the diagnosis of Diabetes Mellitus. ADA recommended reference range Performed By: #### F E and TIBC, ALBERT, CMP, CBC #### [address] Hematocrit [Volume Fraction] of Blood by Automated countOrdered By: Robert Ledezma on 04-19-2024 Hematocrit (Bld) [Volume fraction] 41.3 % Normal 34.0-46.4 [facility] Comment on above: Performed By: #### F E and TIBC, ALBERT, CMP, CBC #### [address] Hemoglobin [Mass/volume] in BloodOrdered By: Robert Ledezma on 04-19-2024 Hemoglobin (Bld) [Mass/Vol] 14.0 g/dL Normal 11.8-15.4 [facility] Comment on above: Performed By: #### F E and TIBC, ALBERT, CMP, CBC #### [address] Iron [Mass/volume] in Serum or PlasmaOrdered By: Robert Ledezma on 04-19-2024 Iron [Mass/Vol] 68 ug/dL Normal 50-212 [facility] Comment on above: Performed By: #### F E and TIBC, ALBERT, CMP, CBC #### [address] Iron and TIBC Profileon 04-04 % Iron Saturation 19.7 % Low 20-50 [facility] Comment on above: Performed By: #### F E and TIBC, ALBERT, CMP, CBC #### [facility] [address] Total Iron Binding Capacity 346 ug/dL Normal 255-450 [facility] Comment on above: Performed By: #### F E and TIBC, ALBERT, CMP, CBC #### [address] Iron binding capacity [Mass/ volume] in Serum or PlasmaOrdered By: Robert Ledezma on 04-19-2024 Iron binding capacity [Mass/Vol] 346 ug/dL 255-450 [facility] Iron saturation [Mass Fracti on] in Serum or PlasmaOrdered By: Robert Ledezma on 04-19-2024 Iron saturation [Mass fraction] 19.7 % Low 20-50 [facility] Leukocytes [#/volume] correc zee for nucleated erythrocytes in Blood by Automated counOrdered By: Robert Ledezma on 04-19-2024 WBC corrected for nucl RBC Auto (Bld) [#/Vol] 4.6 10*3/uL 3.8-11.6 [facility] Leukocytes [#/volume] in Blo od by Automated countOrdered By: Robert Ledezma on 04-19-2024 WBC (Bld) [#/Vol] 4.6 10*3/uL Normal 3.8-11.6 [facility] Comment on above: Performed By: #### F E and TIBC, ALBERT, CMP, CBC #### [facility] [address] [place] [address] [place] Lymphocytes [#/volume] in Bl ood by Automated countOrdered By: Robert Ledezma on 04-19-2024 Lymphocytes (Bld) [#/Vol] 0.9 10*3/uL Low 1.00-4.8 [facility] Comment on above: Performed By: #### F E and TIBC, ALBERT, CMP, CBC #### [facility] [address] [place] [address] [place] Lymphocytes/100 leukocytes i n Blood by Automated countOrdered By: Robert Ledezma on 04-19-2024 Lymphocytes/100 WBC (Bld) 20.5 % Normal . [facility] Comment on above: Performed By: #### F E and TIBC, ALBERT, CMP, CBC #### [facility] [address] MCH [Entitic mass] by Automa zee countOrdered By: Robert Ledezma on 04-19-2024 MCH (RBC) [Entitic mass] 32.5 pg Normal 24.7-34.3 [facility] Comment on above: Performed By: #### F E and TIBC, ALBERT, CMP, CBC #### [facility] [address] MCHC Auto (RBC) [Mass/Vol]Or dered By: Robert Ledezma on 04-19-2024 MCHC (RBC) [Mass/Vol] 33.8 g/dL 32.0-35.0 [facility] MCV [Entitic volume] by Auto mated countOrdered By: Robert Ledezma on 04-19-2024 MCV (RBC) [Entitic vol] 96.3 fL Normal 80-100 [facility] Comment on above: Performed By: #### F E and TIBC, ALBERT, CMP, CBC #### [facility] [address] [place] [address] Neutrophils [#/volume] in Bl ood by Automated countOrdered By: Robert Ledezma on 04-19-2024 Neutrophils (Bld) [#/Vol] 2.9 10*3/uL Normal 1.8-7.7 [facility] Comment on above: Performed By: #### F E and TIBC, ALBERT, CMP, CBC #### [facility] [address] No Panel InformationOrdered By: Robert Ledezma on 04-19-2024 Estimated GFR (CKD-EPI) > 60.0 mL/Min [facility] Creatinine Clearance (Chem 64.79 [facility] Nucleated erythrocytes [Pres ence] in Blood by Automated countOrdered By: Robert Ledezma on 04-19-2024 Nucleated RBC Auto Ql (Bld) 0.2 /100{WBC} 0-0.5 [facility] Platelet mean volume [Entiti c volume] in Blood by Automated countOrdered By: Robert Ledezma on 04-19-2024 Platelet mean volume (Bld) [Entitic vol] 9.4 fL Normal 6.3-10.7 [facility] Comment on above: Performed By: #### F E and TIBC, ALBERT, CMP, CBC #### [address] Platelets [#/volume] in Bloo d by Automated countOrdered By: Robert Ledezma on 04-19-2024 Platelets (Bld) [#/Vol] 147 10*3/uL Low 150-450 [facility] Comment on above: Performed By: #### F E and TIBC, ALBERT, CMP, CBC #### [address] Potassium [Moles/volume] in Serum or PlasmaOrdered By: Robert Ledezma on 04-19-2024 Potassium [Moles/Vol] 3.6 mmol/L Normal 3.5-5.1 [facility] Comment on above: Performed By: #### F E and TIBC, ALBERT, CMP, CBC #### [address] Protein [Mass/volume] in Ser um or PlasmaOrdered By: Robert Ledezma on 04-19-2024 Protein [Mass/Vol] 6.0 g/dL Low 6.4-8.9 [facility] Comment on above: Performed By: #### F E and TIBC, ALBERT, CMP, CBC #### [address] Serum globulin measurement b y calculation (mass/volume)Ordered By: Robert Ledezma on 04-19-2024 Globulin (S) [Mass/Vol] 2.2 g/dL Normal [facility] Comment on above: Performed By: #### F E and TIBC, ALBERT, CMP, CBC #### [address] Serum or plasma albumin/glob ulin mass ratioOrdered By: Robert Ledezma on 04-19-2024 Albumin/Globulin [Mass ratio] 1.7 {ratio} Normal [facility] Comment on above: Performed By: #### F E and TIBC, ALBERT, CMP, CBC #### [facility] [address] Serum or plasma anion gap de terminationOrdered By: Robert Ledezma on 04-19-2024 Anion gap [Moles/Vol] 9.2 mmol/L Normal 6.0-15.0 [facility] Comment on above: Performed By: #### F E and TIBC, ALBERT, CMP, CBC #### [address] Sodium [Moles/volume] in Ser um or PlasmaOrdered By: Robert Ledezma on 04-19-2024 Sodium [Moles/Vol] 141 mmol/L Normal 136-145 [facility] Comment on above: Performed By: #### F E and TIBC, ALBERT, CMP, CBC #### [address] Transferrin [Mass/volume] in Serum or PlasmaOrdered By: Robert Ledezma on 04-19-2024 Transferrin [Mass/Vol] 247 mg/dL Normal 203-362 [facility] Comment on above: Performed By: #### F E and TIBC, ALBERT, CMP, CBC #### [place] [address] [place] Urea nitrogen [Mass/volume] in Serum or PlasmaOrdered By: Robert Ledezma on 04-19-2024 Urea nitrogen [Mass/Vol] 10 mg/dL Normal 7-25 [facility] Comment on above: Performed By: #### F E and TIBC, ALBERT, CMP, CBC #### [place] [address] [place] XR shoulder RT min 2V*on XR shoulder RT min 2V* [facility] [address] [place] [id number] XRay Report Signed Patient: Rebecca Herrera MR#: [id number] : 1950 Acct:[id number] Age/Sex: 73 / F ADM Date: 02/27/24 Loc: [facility] Room: Type: [facility] Attending Dr: Mau Blackman DO Copies to: Mau Blackman DO Ordering Provider: Mau Blackman DO Date of Service: 02/27/24 XR/XR shoulder RT min 2V*: M25.511 - Pain in right shoulder RIGHT SHOULDER - - 4 views CLINICAL HISTORY: Right shoulder pain for 5 years. No known injury. COMPARISON: None FINDINGS: Mild degenerative changes of the AC and glenohumeral joints without acute bony process. Rounded calcifications seen projecting over the right thoracic inlet. XR/XR shoulder RT min 2V* IMPRESSION: MILD DEGENERATIVE CHANGES OF THE RIGHT SHOULDER WITHOUT ACUTE BONY PROCESS. Impression dictated by: Hammad Thompson Jr., D.ODemi02/27/2024 9:36 AM Dictation Location: [place] [address] Transcribed By: [facility] 02/27/24 0936 Dictated By: Hammad Thompson Jr, DO 02/27/24 0936 Signed By: 02/27/24 0936 Normal [facility] ECG 12 [place] 02-12-2024 Sinus bradycardia wi th heart rate of 55 with incomplete right bundle branch block [facility] Work Phone: RAD - MISCon 01-04-2024 RAD - MISC [id number]#1.00TIFF Normal [facility] Lab Reportson 01-01-2024 Lab Reports [id number]#1.00TIFF Normal [facility] Consent for Procedure/Surger yon 2023 Consent for Procedure/Surgery [id number]#1.00TIFF Normal [facility] ECG 12-Leadon 2023 ECG 12-Lead [id number]#1.00TIFF Normal [facility] ECG 12-Lead [id number]#1.00TIFF [facility] Echocardiographyon 4 Echocardiography [id number]#1.00TIFF [facility] Formson 2023 Forms [id number]#1.00TIFF [facility] Lab Reportson 2023 Lab Reports [id number]#1.00TIFF [facility] Lab Reports [id number]#1.00TIFF [facility] Physician Referralon 024 Physician Referral [id number]#1.00TIFF [facility] RAD - MISCon 2023 RAD - MISC [id number]#1.00TIFF [facility] Formson 12-11-2023 Forms [id number]#1.00TIFF [facility] Physician Referralon 024 Physician Referral [id number]#1.00TIFF [facility] Ambulatory Visit Summaryon 0 12-10-2023 Ambulatory Visit Summary REBECCA NUGENT :1950 Visit Date:12/10/2023 Ambulatory Visit Instructions Your Diagnosis Ureteral stone Kidney stone History of renal stone Tests Performed XR Abdomen 1 View -- Results Pending -- Please visit your patient portal for your results or contact your primary care physician. Your Care Team Attending Physician - SUZY MARTINEZ, Jasper Caicedo Primary Care Physician - LINDA MARTINEZ, RADHA Worthington This Is Your Medications List Contact prescribing physician if questions or concerns buPROPion (buPROPion 300 mg/24 hours ER Tab) ergocalciferol (Vitamin D2 50,000 intl units (1.25 mg) oral capsule) famotidine (famotidine 20 mg Tab) hydroxychloroquine (Plaquenil) paroxetine (Paxil 20 mg Tab) warfarin (warfarin 2 mg Tab) Procedures Performed Appendectomy, section, Cholecystectomy, Colonoscopy, Correction of hammer toe, EGD - esophagogastroduodenoscopy , Gastric bypass, History of left knee replacement, Polypectomy, Release of trigger finger, Tubal ligation. Discharge Vitals Temperature (Temporal Artery) 36.6 ?C Heart Rate (Peripheral) 59 Respiratory Rate 16 Blood Pressure 132/68 Height 162 cm Height 64 in Weight 75.3 kg Weight 165.66 lb BMI 28.69 What to do next You Need to Schedule the Following Appointments Follow Up with SUZY MARTINEZ, LYNDA Merino When: Where: [facility] [address] , [place] [address]- Medications What How Much When Instructions Unchanged buPROPion (buPROPion 300 mg/ 24 hours ER Tab) 1 Tablets By Mouth Every day Contact prescribing physician if questions or concerns Unchanged ergocalciferol (Vitamin D2 50,000 intl units (1.25 mg) oral capsule) 1 Capsules By Mouth Every other day Contact prescribing physician if questions or concerns Unchanged famotidine (famotidine 20 mg Tab) 1 Tablets By Mouth Every day Contact prescribing physician if questions or concerns Unchanged hydroxychloroquine (Plaquenil) 200 Milligram By Mouth 2 times a day Contact prescribing physician if questions or concerns Unchanged paroxetine (Paxil 20 mg Tab) 1 Tablets By Mouth Every day Contact prescribing physician if questions or concerns Unchanged warfarin (warfarin 2 mg Tab) 1 Tablets By Mouth Every day Contact prescribing physician if questions or concerns Allergies No Known Medication Allergies Problems Ongoing - Any problem that you are currently receiving treatment for. Anxiety Aortic aneurysm Arthritis Bradycardia DVT (deep venous thrombosis) Elevated parathyroid hormone Factor V Leiden GERD (gastroesophageal reflux disease) History of renal stone Iron deficiency Kidney stone Lichen sclerosus Mass of left parotid gland Murmur EVELYNE (obstructive sleep apnea) Ureteral stone Patient Survey You may receive a survey via text or e-mail asking about your office visit. Please share your experience with us by completing your survey. We appreciate your feedback and thank you for choosing us for your care. Education Materials Kidney Stones Kidney stones are solid, rock-like deposits that form inside of the kidneys. The kidneys are a pair of organs that make urine. A kidney stone may form in a kidney and move into other parts of the urinary tract, including the tubes that connect the kidneys to the bladder (ureters), the bladder, and the tube that carries urine out of the body (urethra). As the stone moves through these areas, it can cause intense pain and block the flow of urine. Kidney stones are created when high levels of certain minerals are found in the urine. The stones are usually passed out of the body through urination, but in some cases, medical treatment may be needed to remove them. What are the causes? Kidney stones may be caused by: ? A condition in which certain glands produce too much parathyroid hormone (primary hyperparathyroidism), which causes too much calcium buildup in the blood. ? A buildup of uric acid crystals in the bladder (hyperuricosuria). Uric acid is a chemical that the body produces when you eat certain foods. It usually leaves the body in the urine. ? Narrowing (stricture) of one or both of the ureters. ? A kidney blockage that is present at (congenital obstruction). ? Past surgery on the kidney or the ureters. What increases the risk? The following factors may make you more likely to develop this condition: ? Having had a kidney stone in the past. ? Having a family history of kidney stones. ? Not drinking enough water. ? Eating a diet that is high in protein, salt (sodium), or sugar. ? Being overweight or obese. What are the signs or symptoms? Symptoms of a kidney stone may include: ? Pain in the side of the abdomen, right below the ribs (flank pain). Pain usually spreads (radiates) to the groin. ? Needing to urinate often or urgently. ? Painful urination. ? Blood in the urine (hematuria) (more content not included)... Normal [facility] Patient Educationon 12-10-19 Patient Education Urology Kidney Stones Kidney stones are solid, rock-like deposits that form inside of the kidneys. The kidneys are a pair of organs that make urine. A kidney stone may form in a kidney and move into other parts of the urinary tract, including the tubes that connect the kidneys to the bladder (ureters), the bladder, and the tube that carries urine out of the body (urethra). As the stone moves through these areas, it can cause intense pain and block the flow of urine. Kidney stones are created when high levels of certain minerals are found in the urine. The stones are usually passed out of the body through urination, but in some cases, medical treatment may be needed to remove them. What are the causes? Kidney stones may be caused by: ? A condition in which certain glands produce too much parathyroid hormone (primary hyperparathyroidism), which causes too much calcium buildup in the blood. ? A buildup of uric acid crystals in the bladder (hyperuricosuria). Uric acid is a chemical that the body produces when you eat certain foods. It usually leaves the body in the urine. ? Narrowing (stricture) of one or both of the ureters. ? A kidney blockage that is present at (congenital obstruction). ? Past surgery on the kidney or the ureters. What increases the risk? The following factors may make you more likely to develop this condition: ? Having had a kidney stone in the past. ? Having a family history of kidney stones. ? Not drinking enough water. ? Eating a diet that is high in protein, salt (sodium), or sugar. ? Being overweight or obese. What are the signs or symptoms? Symptoms of a kidney stone may include: ? Pain in the side of the abdomen, right below the ribs (flank pain). Pain usually spreads (radiates) to the groin. ? Needing to urinate often or urgently. ? Painful urination. ? Blood in the urine (hematuria). ? Nausea. ? Vomiting. ? Fever and chills. How is this diagnosed? This condition may be diagnosed based on: ? Your symptoms and medical history. ? A physical exam. ? Blood tests. ? Urine tests. These may be done before and after the stone passes out of your body through urination. ? Imaging tests, such as a CT scan, abdominal X-ray, or ultrasound. ? A procedure to examine the inside of the bladder (cystoscopy). How is this treated? Treatment for kidney stones depends on the size, location, and makeup of the stones. Kidney stones will often pass out of the body through urination. You may need to: ? Increase your fluid intake to help pass the stone. In some cases, you may be given fluids through an IV and may need to be monitored in the hospital. ? Take medicine for pain. ? Make changes in your diet to help prevent kidney stones from coming back. Sometimes, procedures are needed to remove a kidney stone. This may involve: ? A procedure to break up kidney stones using: ? A focused beam of light (laser therapy). ? Shock waves (extracorporeal shock wave lithotripsy). ? Surgery to remove kidney stones. This may be needed if you have severe pain or have stones that block your urinary tract. Follow these instructions at home: Medicines ? Take etsp-dgo-meuhvkr and prescription medicines only as told by your health care provider. ? Ask your health care provider if the medicine prescribed to you requires you to avoid driving or using heavy machinery. Eating and drinking ? Drink enough fluid to keep your urine pale yellow. You may be instructed to drink at least 8?10 glasses of water each day. This will help you pass the kidney stone. ? If directed, change your diet. This may include: ? Limiting how much sodium you eat. ? Eating more fruits and vegetables. ? Limiting how much animal protein you eat. Animal proteins include red meat, poultry, fish, and eggs. ? Eating a normal amount of calcium (1,000?1,300 mg per day). ? Follow instructions from your health care provider about eating or drinking restrictions. General instructions ? Collect urine samples as told by your health care provider. You may need to collect a urine sample: ? 24 hours after you pass the stone. ? 8?12 weeks after you pass the kidney stone, and every 6?12 months after that. ? Strain your urine every time you urinate, for as long as directed. Use the strainer that your health care provider recommends. ? Do not throw out the kidney stone after passing it. Keep the stone so it can be tested by your health care provider. Testing the makeup of your kidney stone may help prevent you from getting kidney stones in the future. ? Keep all follow-up visits. You may need follow-up X-rays or ultrasounds to make sure that your stone has passed. How is this prevented? To prevent another kidney stone: ? Drink enough fluid to keep your urine pale yellow. This is the best way to prevent kidney stones. ? Eat a healthy diet. Follow recommendations from (more content not included)... Normal [facility] Urology Office/Clinic Noteon 12-10-2023 Urology Office/Clinic Note Chief Complaint CREDIT PROFESSIONAL [facility] ER f/u w/ KUB HPI Staff Rebecca is a 72 y.o. female new patient here for [facility] ER f/u w/ KUB. Pt presented to [facility] ER on 12/01/23 for left sided abdominal pain. CT done on 12/01/23. Patient voices that she does not think she has passed stone. Dysuria: denies Incomplete bladder emptying: denies Hematuria: denies Frequency: denies Urgency: yes Nocturia: 1x a night Stream: steady Leaking: occasionally Post void dripping: Wearing pads/ Depends: wears pantyliner Urge incontinence: denies Stress incontinence: denies Incontinence without Sensory Awareness: denies Abdominal pain: denies Flank pain: denies Sexual complaints: _ History of Present Illness Tests reviewed: reviewed UA, ED records, CT, KUB I have reviewed the previous health record information and history for this patient from [facility] . I have reviewed and verified the staff HPI to be accurate for this encounter. There have been no associated fever, chills, flank pain, or blood in the urine. Denies any urinary infections since last encounter. Review of Systems PHQ Score Initial Depression Screen Score: 0 SCORE ROS - Provider Constitutional: denies weight loss, denies hot flashes. Eyes: denies eye problems. Gastrointestinal: denies nausea, denies vomiting. Cardiovascular: denies chest pain or angina. Integumentary: no dryness Musculoskeletal: denies musculoskeletal symptoms. ENMT: denies otolaryngeal symptoms. Respiratory: no shortness of breath. Heme/Lymph: denies easy bleeding tendency, denies easy bruising tendency. Psychiatric: no confusion, no anxiety. Genitourinary: See HPI. Physical Exam Vitals & Measurements T: 36.6 ?C(Temporal Artery) HR: 59(Peripheral) RR: 16 BP: 132/68 HT: 64 in HT: 162 cm WT: 75.3 kg WT: 165.66 lb BMI: 28.69 General Appearance: alert , no acute distress, well nourished, well developed female. Head: normocephalic . Eyes: normal orbit and globe. ENMT: normal examination of external ears. Chest: Lungs CTA, respirations non labored . Cardiovascular: regular rate and rhythm. Abdomen: soft , non distended, no tenderness, no mass or organomegaly, no hernia. Genitourinary: bladder nonpalpable, no flank tenderness. Lymph Nodes: unremarkable palpation of the cervical area. Skin: warm, dry, no bruising. Psychiatric: cooperative, affect appropriate for age, normal judgement, euthymic mood. Assessment/Plan Rebecca is a 72 yo female new pt following up to [facility] ED visit on 12/01/23 due to L sided abdominal pain. 1. Ureteral stone (N20.1: Calculus of ureter) CT AP wo con 12/01/23 - 6 mm stone LIP. 5 mm obstructing stone L UVJ. R kidney appears unremarkable. KUB 12/08/23 - Redemonstration of 5 mm L UPJ stone. Dislodgement of the L 9 mm stone now in the distal ureter. Personal review: at least one stone in distal L ureter, possibly more. L kidney obscured due to bowel content. UA shows trace leuks. Pt's 4th or 5th stone event. Has not caught a stone before. Last stone event was summer. Pain from recent stone episode started Friday, November 30. Was experiencing urgency and frequency like she had a UTI, later pain developed that radiated from L flank to abdomen. Reviewed imaging with pt. Discussed management options including MET vs surgical intervention with URS, laser litho, and stent placement. Pt will be leaving for a bus trip soon, stone issue must be resolved before then. Will give pt a few more days to try to pass on her own with MET, if not, will proceed with surgical intervention prior to her trip. Follow up 1 wk with KUB or sooner if needed. Pt understands and agrees with plan. -Cont straining urine. -Start Flomax 0.4 mg bid. SE discussed. Rx sent to [facility]. -High fluid intake. -Pt to call or go to the ER if he were to experience fever, shaking, chills, uncontrolled nausea, vomiting, or pain. 2. Kidney stone (N20.0: Calculus of kidney) See #1. 3. History of renal stone (Z87.442: Personal history of urinary calculi) See #1. Follow-up With When Contact Information SUZY MARTINEZ, Jasper Caicedo, URL [facility] [address], [place] [address]- Additional Instructions: 1 wk with KUB Patient Education Kidney Stones I, Aleksandra Lowery, personally scribed for Dr. Almonte on 12/10/2023 15:06:31. . Documentation recorded by the scribe, Aleksandra Lowery, accurately reflects the services(s) I performed and decisions made by me. Authenticated by Dr. Almonte on 12/10/2023 15:09:49. Problem List/Past Medical History Ongoing Anxiety Aortic aneurysm Arthritis Bradycardia DVT (deep venous thrombosis) Elevated parathyroid hormone Factor V Leiden GERD (gastroesophageal reflux disease) History of renal stone Iron deficiency Kidney stone Lichen sclerosus Mass of left parotid gland Murmur EVELYNE (obstructive sleep apnea) Ureteral stone Historical No qualifying data Procedu (more content not included)... Normal [facility] Comment on above: Result Comment: Elec tronically Signed By: SUZY MARTINEZ, Jasper Caicedo\.br\Date and Time Signed: 12/10/23 15:09 EDT\.br\Electronically Co-Signed By: Aleksandra Lowery\.br\Date and Time Co-Signed: 12/10/23 15:07 EDT RAD - MISCon 12-09-2023 RAD - MISC [id number]#1.00TIFF [facility] XR KUBon 12-08-2023 [facility] Main [place] [id number] XRay Report Signed Patient: Rebecca Herrera MR#: [id number] : 1950 Acct:[id number] Age/Sex: 72 / F ADM Date: 12/08/23 Loc: XD Room: Type: [facility] Attending Dr: Jasper Almonte MD Copies to: Jasper Almonte MD Ordering Provider: Jasper Almonte MD Date of Service: 12/08/23 XR/XR KUB: N20.0 KUB COMPARISON: 12/02/2023 HISTORY: Recheck left kidney stone. Flank pain. THORAX: Lung bases unremarkable. FREE AIR: Supine position limits assessment BOWEL: No gaseous intestinal distention. STOOL: No significant stool RENAL STONES: The previously seen distal 5 mm left UVJ stone overlies stool. The prior stone in the left kidney is no dislodged in seen in the distal portion of the ureter. This measures 9 x 7 mm. VASCULAR CALCIFICATIONS: Unremarkable SOFT TISSUE: Unremarkable BONES: Unremarkable POSTSURGICAL CHANGES: IVC filter present. XR/XR KUB IMPRESSION: Redemonstration of 5 mm left UPJ stone. Dislodgment of the left 9 mm stone now in the distal ureter. Impression dictated by: Steven Dos Santos M.D.12/08/2023 5:06 PM Dictation Location: [place] [address] Transcribed By: [facility] 12/08/231705 Dictated By: Steven Dos Santos DO 12/08/231701 Signed By: 12/08/231705 Normal [facility] CT abdomen pelvis wo conon 0 12-02-2023 CT abdomen pelvis wo [facility] [place] [address] [place] [address] CT Scan Report Signed Patient: Rebecca Herrera MR#: [id number] : 1950 Acct:[id number] Age/Sex: 72 / F ADM Date: 12/01/23 Loc: ER Room: Type: [facility] ER Attending Dr: Copies to: Aby Acosta MD Ordering Provider: Aby Acosta MD Date of Service: 12/01/23 CT/CT abdomen pelvis wo con: r/o kidney stone, dysuria, similar to prior stones CT ABDOMEN AND PELVIS WITHOUT INTRAVENOUS CONTRAST: CLINICAL HISTORY: Left flank pain decreased urine output COMPARISON: None TECHNIQUE: Spiral images were obtained through the abdomen and pelvis without intravenous contrast. This CT exam was performed using one or more following dose reduction techniques: Automated exposure control, adjustment of the mA and/or kV according to patient size, or use of iterative reconstruction technique. FINDINGS: Lung Bases: [Evidence of old granulomatous disease. No acute findings. Mitral valve calcification.] Organs:Suboptimal evaluation due to lack of IV contrast. Liver spleen pancreas and adrenal glands all appear unremarkable. Gallbladder has been removed. IVC filter is in place. 6 mm stone inferior pole left kidney. 5 mm obstructing calculus left UVJ. Right kidney appears unremarkable. Abdominal aorta appears normal in caliber.[ GI: Gastric sleeve changes with small hiatal hernia present.[No acute colonic abnormality. Pelvis:[Urinary bladder is grossly unremarkable. Uterus is atrophic. No adnexal mass.] Peritoneum/Retroperitoneum :No free air, free fluid or lymphadenopathy.[ Abd wall/Bones:Abdominal wall demonstrates no acute findings. Osseous structures demonstrate degenerative change.[ CT/CT abdomen pelvis wo con IMPRESSION: Left nephrolithiasis with 5 mm obstructing stone left UVJ. Impression dictated by: Hammad Thompson Jr., Pat12/02/2023 8:49 AM Dictation Location: [place] [address] Transcribed By: [facility] 12/02/2349 Dictated By: Hammad Thompson Jr, DO 12/02/23 0843 Signed By: 12/02/2349 Normal [facility] Urine Cultureon 12-02-2023 Bacteria identified Cx Nom (U) 40,000 colonies/ml mixed bacterial skin contaminants 2 Days PERFORMED BY: [place] [address] PATHOLOGIST VENDOR SPECIALIST HANANE CASTRO M.D. Normal [facility] Comment on above: Performed By: #### E SR, CBC, ADDONUAPLUS, HEPATIC, CREAT, MG, CRP #### [facility] [address] [place] [address] Urine culture routineOrdered By: Aby Acosta on 12-02-2023 Bacteria identified Cx Nom (U) 2 Days [facility] Alanine aminotransferase [En zymatic activity/volume] in Serum or PlasmaOrdered By: PROVIDER TEMP on 12-01-2023 ALT [Catalytic activity/Vol] 33 U/L Normal 7-52 [facility] Comment on above: Performed By: #### E SR, CBC, ADDONUAPLUS, HEPATIC, CREAT, MG, CRP #### [facility] [address] Albumin [Mass/volume] in Ser um or Plasma by Bromocresol green (BCG) dye binding methoOrdered By: PROVIDER TEMP on 12-01-2023 Albumin BCG dye [Mass/Vol] 4.2 g/dL 3.5-5.7 [facility] Alkaline phosphatase [Enzyma tic activity/volume] in Serum or PlasmaOrdered By: PROVIDER TEMP on 12-01-2023 ALP [Catalytic activity/Vol] 120 U/L High 34-104 [facility] Comment on above: Performed By: #### E SR, CBC, ADDONUAPLUS, HEPATIC, CREAT, MG, CRP #### [facility] [address] [place] [address] Aspartate aminotransferase [ Enzymatic activity/volume] in Serum or PlasmaOrdered By: PROVIDER TEMP on 12-01-2023 AST [Catalytic activity/Vol] 26 U/L Normal 13-39 [facility] Comment on above: Performed By: #### E SR, CBC, ADDONUAPLUS, HEPATIC, CREAT, MG, CRP #### [address] Automated basophil %Ordered By: PROVIDER TEMP on 12-01-2023 Basophils/100 WBC (Bld) 0.3 % Normal . [facility] Comment on above: Performed By: #### E SR, CBC, ADDONUAPLUS, HEPATIC, CREAT, MG, CRP #### [address] Automated basophil countOrde red By: PROVIDER TEMP on 12-01-2023 Basophils (Bld) [#/Vol] 0.0 10*3/uL Normal 0.0-0.2 [facility] Comment on above: Result Comment: PERF ORMED BY: [place] [address] PATHOLOGIST VENDOR SPECIALIST HANANE CASTRO M.D. Performed By: #### E SR, CBC, ADDONUAPLUS, HEPATIC, CREAT, MG, CRP #### [address] Automated blood monocyte cou ntOrdered By: PROVIDER TEMP on 12-01-2023 Monocytes (Bld) [#/Vol] 0.7 10*3/uL Normal 0.0-0.8 [facility] Comment on above: Performed By: #### E SR, CBC, ADDONUAPLUS, HEPATIC, CREAT, MG, CRP #### [facility] [address] Automated eosinophil %Ordere d By: PROVIDER TEMP on 12-01-2023 Eosinophils/100 WBC (Bld) 2.0 % Normal . [facility] Comment on above: Performed By: #### E SR, CBC, ADDONUAPLUS, HEPATIC, CREAT, MG, CRP #### [facility] [address] Automated eosinophil countOr dered By: PROVIDER TEMP on 12-01-2023 Eosinophils (Bld) [#/Vol] 0.2 10*3/uL Normal 0.0-0.45 [facility] Comment on above: Performed By: #### E SR, CBC, ADDONUAPLUS, HEPATIC, CREAT, MG, CRP #### [address] Automated erythrocytes count in urine sediment (number/area)Ordered By: Aby Acosta on 12-01-2023 RBC Auto (Urine sed) [#/Area] 50-100 [HPF] High 0-4 [facility] Automated leukocytes count i n urine sediment (number/area)Ordered By: Aby Acosta on 12-01-2023 WBC Auto (Urine sed) [#/Area] 0-1 [HPF] 0-4 [facility] Automated monocyte %Ordered By: PROVIDER TEMP on 12-01-2023 Monocytes/100 WBC (Bld) 8.1 % Normal . [facility] Comment on above: Performed By: #### E SR, CBC, ADDONUAPLUS, HEPATIC, CREAT, MG, CRP #### [facility] [address] Automated neutrophil %Ordere d By: PROVIDER TEMP on 12-01-2023 Neutrophils/100 WBC (Bld) 82.5 % Normal . [facility] Comment on above: Performed By: #### E SR, CBC, ADDONUAPLUS, HEPATIC, CREAT, MG, CRP #### [facility] [address] [place] [address] Automated urine color determ inationOrdered By: Aby Acosta on 12-01-2023 Color (U) Yellow Normal Yellow [facility] Comment on above: Order Comment: Name Collection Type:: Clean-Voided Midstream Performed By: #### E SR, CBC, ADDONUAPLUS, HEPATIC, CREAT, MG, CRP #### [facility] [address] Basic Metabolic Panelon 11-03 Creatinine Clr Calc Pharmacy 65.72 Normal [facility] Comment on above: Performed By: #### E SR, CBC, ADDONUAPLUS, HEPATIC, CREAT, MG, CRP #### [facility] [address] GFR/1.73 sq M.predicted MDRD (S/P/Bld) [Vol rate/Area] mL/min/{1.73_m2} Normal [facility] Comment on above: Performed By: #### E SR, CBC, ADDONUAPLUS, HEPATIC, CREAT, MG, CRP #### [facility] [address] Bilirubin Test strip Ql (U)O rdered By: Aby Acosta on 12-01-2023 Bilirubin Ql (U) Negative Negative [facility] Bilirubin.direct [Mass/volum e] in Serum or PlasmaOrdered By: PROVIDER TEMP on 12-01-2023 Bilirubin.direct [Mass/Vol] 0.10 mg/dL 0.03-0.18 [facility] Bilirubin.total [Mass/volume ] in Serum or PlasmaOrdered By: PROVIDER TEMP on 12-01-2023 Bilirubin [Mass/Vol] 0.6 mg/dL Normal 0.3-1.0 [facility] Comment on above: Performed By: #### E SR, CBC, ADDONUAPLUS, HEPATIC, CREAT, MG, CRP #### [facility] [address] Calcium [Mass/volume] in Ser um or PlasmaOrdered By: PROVIDER TEMP on 12-01-2023 Calcium [Mass/Vol] 9.0 mg/dL Normal 8.6-10.3 [facility] Comment on above: Performed By: #### E SR, CBC, ADDONUAPLUS, HEPATIC, CREAT, MG, CRP #### [address] Carbon dioxide, total [Moles /volume] in Serum or PlasmaOrdered By: PROVIDER TEMP on 12-01-2023 CO2 [Moles/Vol] 24.9 mmol/L Normal 21.0-31.0 [facility] Comment on above: Performed By: #### E SR, CBC, ADDONUAPLUS, HEPATIC, CREAT, MG, CRP #### [address] Chloride [Moles/volume] in S maurilio or PlasmaOrdered By: PROVIDER TEMP on 12-01-2023 Chloride [Moles/Vol] 107 mmol/L Normal 98-107 [facility] Comment on above: Performed By: #### E SR, CBC, ADDONUAPLUS, HEPATIC, CREAT, MG, CRP #### [address] Complete Blood Count Auto Di ffon 12-01-2023 Mean Corpuscular HGB Conc 33.7 g/dL Normal 32.0-35.0 [facility] Comment on above: Performed By: #### E SR, CBC, ADDONUAPLUS, HEPATIC, CREAT, MG, CRP #### [address] Monocytes/100 WBC (Bld) 16.88 % Normal 0.00-20.00 [facility] Comment on above: Performed By: #### E SR, CBC, ADDONUAPLUS, HEPATIC, CREAT, MG, CRP #### [address] NRBC% 0.1 /100{WBC} Normal 0-0.5 [facility] Comment on above: Performed By: #### E SR, CBC, ADDONUAPLUS, HEPATIC, CREAT, MG, CRP #### [address] Creatinine [Mass/volume] in Serum or PlasmaOrdered By: PROVIDER TEMP on 12-01-2023 Creatinine [Mass/Vol] 0.80 mg/dL Normal 0.60-1.20 [facility] Comment on above: Performed By: #### E SR, CBC, ADDONUAPLUS, HEPATIC, CREAT, MG, CRP #### [address] Dipstick and Microscopicon 0 12-01-2023 Appearance (U) Cloudy Critically abnormal Clear [facility] Comment on above: Order Comment: Name Collection Type:: Clean-Voided Midstream Performed By: #### E SR, CBC, ADDONUAPLUS, HEPATIC, CREAT, MG, CRP #### [address] Bacteria,Urine None Seen Normal None Seen [facility] Comment on above: Order Comment: Name Collection Type:: Clean-Voided Midstream Performed By: #### E SR, CBC, ADDONUAPLUS, HEPATIC, CREAT, MG, CRP #### [address] Bilirubin,Urine Negative Normal Negative [facility] Comment on above: Order Comment: Name Collection Type:: Clean-Voided Midstream Performed By: #### E SR, CBC, ADDONUAPLUS, HEPATIC, CREAT, MG, CRP #### [address] Glucose Ql (U) Normal Normal Normal [facility] Comment on above: Order Comment: Name Collection Type:: Clean-Voided Midstream Performed By: #### E SR, CBC, ADDONUAPLUS, HEPATIC, CREAT, MG, CRP #### [address] Hyaline Casts,Urine 0-8 Normal 0-8 [facility] Comment on above: Order Comment: Name Collection Type:: Clean-Voided Midstream Result Comment: PERF ORMED BY: [place] [address] PATHOLOGIST VENDOR SPECIALIST HANANE CASTRO M.D. Performed By: #### E SR, CBC, ADDONUAPLUS, HEPATIC, CREAT, MG, CRP #### [address] [address] [place] Ketones Ql (U) Trace High Negative [facility] Comment on above: Order Comment: Name Collection Type:: Clean-Voided Midstream Performed By: #### E SR, CBC, ADDONUAPLUS, HEPATIC, CREAT, MG, CRP #### [address] Leukocyte esterase Test strip Ql (U) Negative Normal Negative [facility] Comment on above: Order Comment: Name Collection Type:: Clean-Voided Midstream Performed By: #### E SR, CBC, ADDONUAPLUS, HEPATIC, CREAT, MG, CRP #### [address] Nitrite,Urine Negative Normal Negative [facility] Comment on above: Order Comment: Name Collection Type:: Clean-Voided Midstream Performed By: #### E SR, CBC, ADDONUAPLUS, HEPATIC, CREAT, MG, CRP #### [address] Occult Blood,Urine 3+ High Negative [facility] Comment on above: Order Comment: Name Collection Type:: Clean-Voided Midstream Result Comment: PERF ORMED BY: [place] [address] PATHOLOGIST VENDOR SPECIALIST HANANE CASTRO M.D. Performed By: #### E SR, CBC, ADDONUAPLUS, HEPATIC, CREAT, MG, CRP #### [address] RBC,Urine 50-100 High 0-4 [facility] Comment on above: Order Comment: Name Collection Type:: Clean-Voided Midstream Performed By: #### E SR, CBC, ADDONUAPLUS, HEPATIC, CREAT, MG, CRP #### [address] Specificy [place],Urine 1.014 Normal 1.001-1.03 0 [facility] Comment on above: Order Comment: Name Collection Type:: Clean-Voided Midstream Performed By: #### E SR, CBC, ADDONUAPLUS, HEPATIC, CREAT, MG, CRP #### [address] Squamous Epithelial Cell,Urine 0-1 Normal 0-2 [facility] Comment on above: Order Comment: Name Collection Type:: Clean-Voided Midstream Performed By: #### E SR, CBC, ADDONUAPLUS, HEPATIC, CREAT, MG, CRP #### [address] Urobilinogen,Urine Normal Normal Normal [facility] Comment on above: Order Comment: Name Collection Type:: Clean-Voided Midstream Performed By: #### E SR, CBC, ADDONUAPLUS, HEPATIC, CREAT, MG, CRP #### [address] WBC LM.HPF (Urine sed) [#/Area] 0 /[HPF] Normal 0-4 [facility] Comment on above: Order Comment: Name Collection Type:: Clean-Voided Midstream Performed By: #### E SR, CBC, ADDONUAPLUS, HEPATIC, CREAT, MG, CRP #### [address] Erythrocyte distribution wid th [Ratio] by Automated countOrdered By: PROVIDER TEMP on 12-01-2023 Erythrocyte distribution width (RBC) [Ratio] 13.8 % Normal 11.9-15.3 [facility] Comment on above: Performed By: #### E SR, CBC, ADDONUAPLUS, HEPATIC, CREAT, MG, CRP #### [address] Erythrocytes [#/volume] in B lood by Automated countOrdered By: PROVIDER TEMP on 12-01-2023 RBC (Bld) [#/Vol] 4.46 10*6/uL Normal 3.60-5.00 [facility] Comment on above: Performed By: #### E SR, CBC, ADDONUAPLUS, HEPATIC, CREAT, MG, CRP #### [address] Glucose [Mass/volume] in Ser um or PlasmaOrdered By: PROVIDER TEMP on 12-01-2023 Glucose [Mass/Vol] 127 mg/dL High 70-100 [facility] Comment on above: ADA recommended refe rence rangeRandom Glucose Reference Range is dependent on time and content of last meal. Glucose of more than 200 mg/dL in a nonstressed, ambulatory subject supports the diagnosis of Diabetes Mellitus. Result Comment: [place] om Glucose Reference Range is dependent on time and content of last meal. Glucose of more than 200 mg/dL in a nonstressed, ambulatory subject supports the diagnosis of Diabetes Mellitus. ADA recommended reference range Performed By: #### E SR, CBC, ADDONUAPLUS, HEPATIC, CREAT, MG, CRP #### [facility] [address] HCG ( test) IA.rapi d Ql (U)Ordered By: PROVIDER TEMP on 12-01-2023 HCG ( test) Ql (U) Negative [facility] HCG,Urineon 12-01-2023 Beta HCG ( test) Ql (U) Negative Normal [facility] Comment on above: Result Comment: PERF ORMED BY: [place] [address] PATHOLOGIST VENDOR SPECIALIST HANANE CASTRO M.D. Performed By: #### E SR, CBC, ADDONUAPLUS, HEPATIC, CREAT, MG, CRP #### [facility] [address] [place] [address] Hematocrit [Volume Fraction] of Blood by Automated countOrdered By: PROVIDER TEMP on 12-01-2023 Hematocrit (Bld) [Volume fraction] 42.8 % Normal 34.0-46.4 [facility] Comment on above: Performed By: #### E SR, CBC, ADDONUAPLUS, HEPATIC, CREAT, MG, CRP #### [facility] [address] [place] [address] Hemoglobin [Mass/volume] in BloodOrdered By: PROVIDER TEMP on 12-01-2023 Hemoglobin (Bld) [Mass/Vol] 14.4 g/dL Normal 11.8-15.4 [facility] Comment on above: Performed By: #### E SR, CBC, ADDONUAPLUS, HEPATIC, CREAT, MG, CRP #### [facility] [address] Hepatic Panelon 12-01-2023 Albumin [Mass/Vol] 4.2 g/dL Normal 3.5-5.7 [facility] Comment on above: Performed By: #### E SR, CBC, ADDONUAPLUS, HEPATIC, CREAT, MG, CRP #### [facility] [address] Bilirubin,Indirect 0.5 mg/dL Normal [facility] Comment on above: Performed By: #### E SR, CBC, ADDONUAPLUS, HEPATIC, CREAT, MG, CRP #### [facility] [address] Bilirubin.indirect [Mass/Vol] 0.10 mg/dL Normal 0.03-0.18 [facility] Comment on above: Performed By: #### E SR, CBC, ADDONUAPLUS, HEPATIC, CREAT, MG, CRP #### [facility] [address] Ketones Auto test strip (U) [Mass/Vol]Ordered By: Aby Acosta on 12-01-2023 Ketones (U) [Mass/Vol] Trace High Negative [facility] - UrinalysisOrder ed By: Aby Acosta on 12-01-2023 Hyaline casts LM Ql (Urine sed) 0-8 [LPF] 0-8 [facility] Leukocytes [#/volume] correc zee for nucleated erythrocytes in Blood by Automated counOrdered By: PROVIDER TEMP on 12-01-2023 WBC corrected for nucl RBC Auto (Bld) [#/Vol] 9.1 10*3/uL 3.8-11.6 [facility] Leukocytes [#/volume] in Blo od by Automated countOrdered By: PROVIDER TEMP on 12-01-2023 WBC (Bld) [#/Vol] 9.1 10*3/uL Normal 3.8-11.6 [facility] Comment on above: Performed By: #### E SR, CBC, ADDONUAPLUS, HEPATIC, CREAT, MG, CRP #### [address] Lipase [Enzymatic activity/v olume] in Serum or PlasmaOrdered By: PROVIDER TEMP on 12-01-2023 Lipase [Catalytic activity/Vol] 43.0 U/L Normal 11.0-82.0 [facility] Comment on above: Result Comment: PERF ORMED BY: [place] [address] PATHOLOGIST VENDOR SPECIALIST HANANE CASTRO M.D. Performed By: #### E SR, CBC, ADDONUAPLUS, HEPATIC, CREAT, MG, CRP #### [address] Lymphocytes [#/volume] in Bl ood by Automated countOrdered By: PROVIDER TEMP on 12-01-2023 Lymphocytes (Bld) [#/Vol] 0.6 10*3/uL Low 1.00-4.8 [facility] Comment on above: Performed By: #### E SR, CBC, ADDONUAPLUS, HEPATIC, CREAT, MG, CRP #### [address] Lymphocytes/100 leukocytes i n Blood by Automated countOrdered By: PROVIDER TEMP on 12-01-2023 Lymphocytes/100 WBC (Bld) 7.1 % Normal . [facility] Comment on above: Performed By: #### E SR, CBC, ADDONUAPLUS, HEPATIC, CREAT, MG, CRP #### [address] MCH [Entitic mass] by Automa zee countOrdered By: PROVIDER TEMP on 12-01-2023 MCH (RBC) [Entitic mass] 32.3 pg Normal 24.7-34.3 [facility] Comment on above: Performed By: #### E SR, CBC, ADDONUAPLUS, HEPATIC, CREAT, MG, CRP #### [address] MCHC Auto (RBC) [Mass/Vol]Or dered By: PROVIDER TEMP on 12-01-2023 MCHC (RBC) [Mass/Vol] 33.7 g/dL 32.0-35.0 [facility] MCV [Entitic volume] by Auto mated countOrdered By: PROVIDER TEMP on 12-01-2023 MCV (RBC) [Entitic vol] 95.9 fL Normal 80-100 [facility] Comment on above: Performed By: #### E SR, CBC, ADDONUAPLUS, HEPATIC, CREAT, MG, CRP #### [facility] [address] [place] [address] [place] Monocyte distribution width [Entitic volume] in Blood by AutomatedOrdered By: PROVIDER TEMP on 12-01-2023 Monocyte distribution width Auto (Bld) [Entitic vol] 16.88 % 0.00-20.00 [facility] Neutrophils [#/volume] in Bl ood by Automated countOrdered By: PROVIDER TEMP on 12-01-2023 Neutrophils (Bld) [#/Vol] 7.5 10*3/uL Normal 1.8-7.7 [facility] Comment on above: Performed By: #### E SR, CBC, ADDONUAPLUS, HEPATIC, CREAT, MG, CRP #### [facility] [address] Nitrite Test strip Ql (U)Ord ered By: Aby Acosta on 12-01-2023 Nitrite Ql (U) Negative Negative [facility] No Panel InformationOrdered By: PROVIDER TEMP on 12-01-2023 Estimated GFR (CKD-EPI) > 60.0 mL/Min [facility] Creatinine Clearance (Chem 65.72 [facility] Nucleated erythrocytes [Pres ence] in Blood by Automated countOrdered By: PROVIDER TEMP on 12-01-2023 Nucleated RBC Auto Ql (Bld) 0.1 /100{WBC} 0-0.5 [facility] Platelet mean volume [Entiti c volume] in Blood by Automated countOrdered By: PROVIDER TEMP on 12-01-2023 Platelet mean volume (Bld) [Entitic vol] 9.5 fL Normal 6.3-10.7 [facility] Comment on above: Performed By: #### E SR, CBC, ADDONUAPLUS, HEPATIC, CREAT, MG, CRP #### [facility] [address] Platelets [#/volume] in Bloo d by Automated countOrdered By: PROVIDER TEMP on 12-01-2023 Platelets (Bld) [#/Vol] 172 10*3/uL Normal 150-450 [facility] Comment on above: Performed By: #### E SR, CBC, ADDONUAPLUS, HEPATIC, CREAT, MG, CRP #### [facility] [address] Potassium [Moles/volume] in Serum or PlasmaOrdered By: PROVIDER TEMP on 12-01-2023 Potassium [Moles/Vol] 3.9 mmol/L Normal 3.5-5.1 [facility] Comment on above: Performed By: #### E SR, CBC, ADDONUAPLUS, HEPATIC, CREAT, MG, CRP #### [facility] [address] [place] [address] Protein [Mass/volume] in Ser um or PlasmaOrdered By: PROVIDER TEMP on 12-01-2023 Protein [Mass/Vol] 6.6 g/dL Normal 6.4-8.9 [facility] Comment on above: Performed By: #### E SR, CBC, ADDONUAPLUS, HEPATIC, CREAT, MG, CRP #### [facility] [address] [place] [address] Serum globulin measurement b y calculation (mass/volume)Ordered By: PROVIDER TEMP on 12-01-2023 Globulin (S) [Mass/Vol] 2.4 g/dL Normal [facility] Comment on above: Performed By: #### E SR, CBC, ADDONUAPLUS, HEPATIC, CREAT, MG, CRP #### [facility] [address] [place] [address] [place] Serum or plasma albumin/glob ulin mass ratioOrdered By: PROVIDER TEMP on 12-01-2023 Albumin/Globulin [Mass ratio] 1.8 {ratio} [facility] Comment on above: Performed By: #### E SR, CBC, ADDONUAPLUS, HEPATIC, CREAT, MG, CRP #### [facility] [address] Serum or plasma anion gap de terminationOrdered By: PROVIDER TEMP on 12-01-2023 Anion gap [Moles/Vol] 11.0 mmol/L Normal 6.0-15.0 [facility] Comment on above: Performed By: #### E SR, CBC, ADDONUAPLUS, HEPATIC, CREAT, MG, CRP #### [facility] [address] Serum or plasma non-glucuron idated bilirubin measurement (mass/volume)Ordered By: PROVIDER TEMP on 12-01-2023 Bilirubin.indirect [Mass/Vol] 0.5 mg/dL [facility] Sodium [Moles/volume] in Ser um or PlasmaOrdered By: PROVIDER TEMP on 12-01-2023 Sodium [Moles/Vol] 139 mmol/L Normal 136-145 [facility] Comment on above: Performed By: #### E SR, CBC, ADDONUAPLUS, HEPATIC, CREAT, MG, CRP #### [facility] [address] Specific gravity Auto test s trip (U) [Rel density]Ordered By: Aby Acosta on 12-01-2023 Specific gravity (U) [Rel density] 1.014 1.001-1.03 0 [facility] Squamous epithelial cells de tection in urine sediment by light microscopyOrdered By: Aby Acosta on 12-01-2023 Epithelial cells.squamous LM Ql (Urine sed) 0-1 [HPF] 0-2 [facility] Urea nitrogen [Mass/volume] in Serum or PlasmaOrdered By: PROVIDER TEMP on 12-01-2023 Urea nitrogen [Mass/Vol] 9 mg/dL Normal 7-25 [facility] Comment on above: Performed By: #### E SR, CBC, ADDONUAPLUS, HEPATIC, CREAT, MG, CRP #### [facility] [address] Urine bacteria detection by automated methodOrdered By: Aby Acosta on 12-01-2023 Bacteria Auto Ql (U) None seen [HPF] None Seen [facility] Urine clarity by refractomet ry automatedOrdered By: Aby Acosta on 12-01-2023 Clarity Refractometry automated (U) Cloudy Abnormal Clear [facility] Urine glucose measurement by automated test strip (mass/volume)Ordered By: Aby Acosta on 12-01-2023 Glucose Auto test strip (U) [Mass/Vol] Normal mg/dL Normal [facility] Urine hemoglobin detection b y automated test stripOrdered By: Aby Acosta on 12-01-2023 Hemoglobin Auto test strip Ql (U) 3+ High Negative [facility] Urine leukocyte esterase det ection by automated test stripOrdered By: Aby Acosta on 12-01-2023 Leukocyte esterase Auto test strip Ql (U) Negative Negative [facility] Urine pH measurement by auto mated test stripOrdered By: Aby Acosta on 12-01-2023 pH (U) 5.5 [pH] Normal 5.0-9.0 [facility] Comment on above: Order Comment: Name Collection Type:: Clean-Voided Midstream Performed By: #### E SR, CBC, ADDONUAPLUS, HEPATIC, CREAT, MG, CRP #### [facility] [address] [place] [id number] [place] Urine protein measurement by automated test strip (mass/volume)Ordered By: Aby Acosta on 12-01-2023 Protein (U) [Mass/Vol] 30 mg/dL High Negative [facility] Comment on above: Order Comment: Name Collection Type:: Clean-Voided Midstream Performed By: #### E SR, CBC, ADDONUAPLUS, HEPATIC, CREAT, MG, CRP #### [facility] [address] [place] [address] [place] Urobilinogen Auto test strip (U) [Mass/Vol]Ordered By: Aby Acosta on 12-01-2023 Urobilinogen (U) [Mass/Vol] Normal mg/dL Normal [facility] CT angio [place]ston 11-29-2023 CT angio chest [facility] [address] [place] [address] [place] [address] CT Scan Report Signed Patient: Rebecca Herrera MR#: [id number] : 1950 Acct:[id number] Age/Sex: 72 / F ADM Date: 11/28/23 Loc: ER Room: Type: [facility] ER Attending Dr: Copies to: Agustín Rodriges DO Ordering Provider: Agustín Rodriges DO Date of Service: 11/28/23 CT/CT angio chest: evaluate ascending aortic aneurysm CTA Chest with PE protocol TECHNIQUE: Axial imaging with 2-D and 3-D reconstruction. 90cc of [id number] exam was performed using one or more the following dose reduction techniques: Automated exposure control, adjustment of the MA and/or Kv according to patient size, or use of the iterative reconstruction technique. History: LEFT chest pain. COMPARISON: 10/05/20 THYROID: A tiny RIGHT thyroid nodule TRACHEA AND BRONCHI: Patent ESOPHAGUS: Unremarkable. HEART: Cardiomegaly PERICARDIAL EFFUSION: None CORONARY ARTERY CALCIFICATION: Present MEDIASTINUM: No adenopathy. No pneumoperitoneum. No mediastinal hematoma. PULMONARY LAURA: No hilar mass or adenopathy is seen. THORACIC AORTA the ascending thoracic aorta measures 4.3 cm. Prior measurement 4.2 cm. PULMONARY EMBOLUS: None LUNG NODULE None LUNGS: Lungs are clear PLEURAL EFFUSION: None PNEUMOTHORAX: No pneumothorax seen. 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 CT/CT angio chest IMPRESSION: 4.3 cm prominence of the ascending thoracic aorta. No dissection. No central pulmonary embolus. Impression dictated by: Steven Dos Santos M.D.11/29/2023 9:54 AM Dictation Location: [place] [address] Transcribed By: [facility] 11/29/23 0954 Dictated By: Steven Dos Santos DO 11/29/23 0933 Signed By: 11/29/23 0954 Normal [facility] XR chest 1V portableon 11-28 XR chest 1V portable [facility] Main [address] [address] XRay Report Signed Patient: Rebecca Herrera MR#: [id number] : 1950 Acct:[id number] Age/Sex: 72 / F ADM Date: 11/28/23 Loc: ER Room: Type: [facility] ER Attending Dr: Copies to: Agustín Rodriges DO Ordering Provider: Agustín oRdriges DO Date of Service: 11/28/23 XR/XR chest 1V portable: Chest Pain Plain film chest Single view HISTORY: Left-sided chest pain COMPARISON: 12/22/17 FINDINGS: SUPPORT DEVICES: None POSTSURGICAL CHANGES: None HEART: Within normal limits PULMONARY LAURA: Within normal limits MEDIASTINUM: Unremarkable LUNGS AND PLEURA: No acute lung process, pleural effusion or pneumothorax identified. BONY STRUCTURES: Intact ADDITIONAL FINDINGS None XR/XR chest 1V portable IMPRESSION: No acute process. Impression dictated by: Steven Dos Santos M.D.11/29/2023 9:55 AM Dictation Location: [place] [address] Transcribed By: [facility] 11/29/23 0955 Dictated By: Steven Dos Santos DO 11/29/23 0955 Signed By: 11/29/23 0955 Normal [facility] Activated partial thrombopla stin time (aPTT) in platelet poor plasma by coagulation aOrdered By: Agustín Rodriges on 11-28-2023 aPTT Coag (PPP) [Time] 31.5 s 25.1-36.5 [facility] Comment on above: A hematocrit value g reater than 55% may lead to inaccurate results in coagulation testing. Patients having hematocrit values >55% require a special collection tube for coagulation studies. Please contact the laboratory at [phone] for redraw instructions. Automated basophil %Ordered By: Agustín Rodriges on 11-28-2023 Basophils/100 WBC (Bld) 1.0 % Normal . [facility] Comment on above: Performed By: #### E SR, CBC, ADDONUAPLUS, HEPATIC, CREAT, MG, CRP #### [facility] [address] [place] [address] Automated basophil countOrde red By: Agustín Rodriges on 11-28-2023 Basophils (Bld) [#/Vol] 0.0 10*3/uL Normal 0.0-0.2 [facility] Comment on above: Result Comment: PERF ORMED BY: [place] [address] PATHOLOGIST VENDOR SPECIALIST HANANE CASTRO M.D. Performed By: #### E SR, CBC, ADDONUAPLUS, HEPATIC, CREAT, MG, CRP #### [address] Automated blood monocyte cou ntOrdered By: Agustín Rodriges on 11-28-2023 Monocytes (Bld) [#/Vol] 0.6 10*3/uL Normal 0.0-0.8 [facility] Comment on above: Performed By: #### E SR, CBC, ADDONUAPLUS, HEPATIC, CREAT, MG, CRP #### [address] Automated eosinophil %Ordere d By: Agustín Rodriges on 11-28-2023 Eosinophils/100 WBC (Bld) 4.7 % Normal . [facility] Comment on above: Performed By: #### E SR, CBC, ADDONUAPLUS, HEPATIC, CREAT, MG, CRP #### [address] Automated eosinophil countOr dered By: Agustín Rodriges on 11-28-2023 Eosinophils (Bld) [#/Vol] 0.2 10*3/uL Normal 0.0-0.45 [facility] Comment on above: Performed By: #### E SR, CBC, ADDONUAPLUS, HEPATIC, CREAT, MG, CRP #### [address] Automated monocyte %Ordered By: Agustín Rodriges on 11-28-2023 Monocytes/100 WBC (Bld) 12.4 % Normal . [facility] Comment on above: Performed By: #### E SR, CBC, ADDONUAPLUS, HEPATIC, CREAT, MG, CRP #### [address] Automated neutrophil %Ordere d By: Agustín Rodriges on 11-28-2023 Neutrophils/100 WBC (Bld) 58.4 % Normal . [facility] Comment on above: Performed By: #### E SR, CBC, ADDONUAPLUS, HEPATIC, CREAT, MG, CRP #### [address] BNP ser/plasOrdered By: [place] Rodriges on 11-28-2023 Natriuretic peptide B (Bld) [Mass/Vol] 126.0 pg/mL High 5-100 [facility] Comment on above: Result Comment: PERF ORMED BY: [place] [address] PATHOLOGIST VENDOR SPECIALIST HANANE CASTRO M.D. Performed By: #### E SR, CBC, ADDONUAPLUS, HEPATIC, CREAT, MG, CRP #### [address] Basic Metabolic Panelon 11-03 Creatinine Clr Calc Pharmacy 65.76 Normal [facility] Comment on above: Result Comment: PERF ORMED BY: [place] [address] PATHOLOGIST VENDOR SPECIALIST HANANE CASTRO M.D. Performed By: #### E SR, CBC, ADDONUAPLUS, HEPATIC, CREAT, MG, CRP #### [address] GFR/1.73 sq M.predicted MDRD (S/P/Bld) [Vol rate/Area] mL/min/{1.73_m2} Normal [facility] Comment on above: Performed By: #### E SR, CBC, ADDONUAPLUS, HEPATIC, CREAT, MG, CRP #### [address] Calcium [Mass/volume] in Ser um or PlasmaOrdered By: Agustín Rodriges on 11-28-2023 Calcium [Mass/Vol] 8.5 mg/dL Low 8.6-10.3 [facility] Comment on above: Performed By: #### E SR, CBC, ADDONUAPLUS, HEPATIC, CREAT, MG, CRP #### [address] Carbon dioxide, total [Moles /volume] in Serum or PlasmaOrdered By: Agustín Rodriges on 11-28-2023 CO2 [Moles/Vol] 25.9 mmol/L Normal 21.0-31.0 [facility] Comment on above: Performed By: #### E SR, CBC, ADDONUAPLUS, HEPATIC, CREAT, MG, CRP #### [address] Chloride [Moles/volume] in S maurilio or PlasmaOrdered By: Agustín Rodriges on 11-28-2023 Chloride [Moles/Vol] 110 mmol/L High 98-107 [facility] Comment on above: Performed By: #### E SR, CBC, ADDONUAPLUS, HEPATIC, CREAT, MG, CRP #### [address] Complete Blood Count Auto Di ffon 11-28-2023 Mean Corpuscular HGB Conc 33.8 g/dL Normal 32.0-35.0 [facility] Comment on above: Performed By: #### E SR, CBC, ADDONUAPLUS, HEPATIC, CREAT, MG, CRP #### [address] Monocytes/100 WBC (Bld) 16.86 % Normal 0.00-20.00 [facility] Comment on above: Performed By: #### E SR, CBC, ADDONUAPLUS, HEPATIC, CREAT, MG, CRP #### [address] NRBC% 0.1 /100{WBC} Normal 0-0.5 [facility] Comment on above: Performed By: #### E SR, CBC, ADDONUAPLUS, HEPATIC, CREAT, MG, CRP #### [address] Creatinine [Mass/volume] in Serum or PlasmaOrdered By: Agustín Rodriges on 11-28-2023 Creatinine [Mass/Vol] 0.61 mg/dL Normal 0.60-1.20 [facility] Comment on above: Performed By: #### E SR, CBC, ADDONUAPLUS, HEPATIC, CREAT, MG, CRP #### [facility] [address] [place] [address] ECG 12 lead ECGon 11-28-2023 ECG 12 lead ECG [facility] Main [place] [address] [place] [address] Electrocardiograph Report Signed Patient: Rebecca Herrera MR#: [id number] : 1950 Acct:[id number] Age/Sex: 72 / F ADM Date: 11/28/23 Loc: ER Room: Type: [facility] ER Attending Dr: Ordering Provider: Agustín Rodriges DO Date of Service: 11/28/23 ECG/ECG 12 lead ECG: Chest Pain Copies to: Test Reason : Blood Pressure : 151/076 mmHG Vent. Rate : 052 BPM Atrial Rate : 052 BPM P-R Int : 170 ms QRS Dur : 138 ms QT Int : 508 ms P-R-T Axes : 049 046 044 degrees QTc Int : 472 ms Sinus bradycardia with sinus arrhythmia Right bundle branch block baseline artifact Confirmed by Agustín Rodriges DO ([id number]) on 11/29/2023 6:37:04 AM Referred By: Electronically Signed By:Agustín Rodriges DO Transcribed By: [facility] Signed By Agustín Rodriges DO 0637 Normal [facility] Erythrocyte distribution wid th [Ratio] by Automated countOrdered By: Agustín Rodriges on 11-28-2023 Erythrocyte distribution width (RBC) [Ratio] 13.7 % Normal 11.9-15.3 [facility] Comment on above: Performed By: #### E SR, CBC, ADDONUAPLUS, HEPATIC, CREAT, MG, CRP #### [facility] [address] [place] [address] Erythrocytes [#/volume] in B lood by Automated countOrdered By: Agustín Rodriges on 11-28-2023 RBC (Bld) [#/Vol] 4.35 10*6/uL Normal 3.60-5.00 [facility] Comment on above: Performed By: #### E SR, CBC, ADDONUAPLUS, HEPATIC, CREAT, MG, CRP #### [address] Glucose [Mass/volume] in Ser um or PlasmaOrdered By: Agustín Rodriges on 11-28-2023 Glucose [Mass/Vol] 98 mg/dL Normal 70-100 [facility] Comment on above: ADA recommended refe rence rangeRandom Glucose Reference Range is dependent on time and content of last meal. Glucose of more than 200 mg/dL in a nonstressed, ambulatory subject supports the diagnosis of Diabetes Mellitus. Result Comment: [place] om Glucose Reference Range is dependent on time and content of last meal. Glucose of more than 200 mg/dL in a nonstressed, ambulatory subject supports the diagnosis of Diabetes Mellitus. ADA recommended reference range Performed By: #### E SR, CBC, ADDONUAPLUS, HEPATIC, CREAT, MG, CRP #### [address] Hematocrit [Volume Fraction] of Blood by Automated countOrdered By: Agustín Rodriges on 11-28-2023 Hematocrit (Bld) [Volume fraction] 41.4 % Normal 34.0-46.4 [facility] Comment on above: Performed By: #### E SR, CBC, ADDONUAPLUS, HEPATIC, CREAT, MG, CRP #### [address] Hemoglobin [Mass/volume] in BloodOrdered By: Agustín Rodriges on 11-28-2023 Hemoglobin (Bld) [Mass/Vol] 14.0 g/dL Normal 11.8-15.4 [facility] Comment on above: Performed By: #### E SR, CBC, ADDONUAPLUS, HEPATIC, CREAT, MG, CRP #### [address] INR in Platelet poor plasma by Coagulation assayOrdered By: Agustín Rodriges on 11-28-2023 INR Coag (PPP) [Relative time] 1.3 {INR} Normal [facility] Comment on above: INR Therapeutic Rang e A) Pre- and Peroperative OAT started two weeks before surgery. NOT HIP SURGERY: 1.5 - 2.5 HIP SURGERY: 2 - 3B) Primary and secondary prevention of venous THROMBOSIS: 2 - 3C) Active venous thrombosis, pulmonary embolismand prevention of recurrent venous thrombosis: 2 - 3D) Prevention of arterial thromboembolismincluding patients with mechanical heart valves: 3 - 4.5 Result Comment: INR Therapeutic Range A) Pre- and Peroperative OAT started two weeks before surgery. NOT HIP SURGERY: 1.5 - 2.5 HIP SURGERY: 2 - 3 B) Primary and secondary prevention of venous THROMBOSIS: 2 - 3 C) Active venous thrombosis, pulmonary embolism and prevention of recurrent venous thrombosis: 2 - 3 D) Prevention of arterial thromboembolism including patients with mechanical heart valves: 3 - 4.5 Performed By: #### E SR, CBC, ADDONUAPLUS, HEPATIC, CREAT, MG, CRP #### [facility] [address] Leukocytes [#/volume] correc zee for nucleated erythrocytes in Blood by Automated counOrdered By: Agustín Rodriges on 11-28-2023 WBC corrected for nucl RBC Auto (Bld) [#/Vol] 4.9 10*3/uL 3.8-11.6 [facility] Leukocytes [#/volume] in Blo od by Automated countOrdered By: Agustín Rodriges on 11-28-2023 WBC (Bld) [#/Vol] 4.9 10*3/uL Normal 3.8-11.6 [facility] Comment on above: Performed By: #### E SR, CBC, ADDONUAPLUS, HEPATIC, CREAT, MG, CRP #### [facility] [address] Lymphocytes [#/volume] in Bl ood by Automated countOrdered By: Agustín Rodriges on 11-28-2023 Lymphocytes (Bld) [#/Vol] 1.2 10*3/uL Normal 1.00-4.8 [facility] Comment on above: Performed By: #### E SR, CBC, ADDONUAPLUS, HEPATIC, CREAT, MG, CRP #### [facility] [address] [place] [address] Lymphocytes/100 leukocytes i n Blood by Automated countOrdered By: Agustín Rodriges on 11-28-2023 Lymphocytes/100 WBC (Bld) 23.5 % Normal . [facility] Comment on above: Performed By: #### E SR, CBC, ADDONUAPLUS, HEPATIC, CREAT, MG, CRP #### [facility] [address] [place] [address] MCH [Entitic mass] by Automa zee countOrdered By: Agustín Rodriges on 11-28-2023 MCH (RBC) [Entitic mass] 32.2 pg Normal 24.7-34.3 [facility] Comment on above: Performed By: #### E SR, CBC, ADDONUAPLUS, HEPATIC, CREAT, MG, CRP #### [address] MCHC Auto (RBC) [Mass/Vol]Or dered By: Agustín Rodriges on 11-28-2023 MCHC (RBC) [Mass/Vol] 33.8 g/dL 32.0-35.0 [facility] MCV [Entitic volume] by Auto mated countOrdered By: Agustín Rodriges on 11-28-2023 MCV (RBC) [Entitic vol] 95.1 fL Normal 80-100 [facility] Comment on above: Performed By: #### E SR, CBC, ADDONUAPLUS, HEPATIC, CREAT, MG, CRP #### [facility] [address] [place] [address] Monocyte distribution width [Entitic volume] in Blood by AutomatedOrdered By: Agustín Rodriges on 11-28-2023 Monocyte distribution width Auto (Bld) [Entitic vol] 16.86 % 0.00-20.00 [facility] Neutrophils [#/volume] in Bl ood by Automated countOrdered By: Agustín Rodriges on 11-28-2023 Neutrophils (Bld) [#/Vol] 2.9 10*3/uL Normal 1.8-7.7 [facility] Comment on above: Performed By: #### E SR, CBC, ADDONUAPLUS, HEPATIC, CREAT, MG, CRP #### [facility] [address] [place] [address] No Panel InformationOrdered By: Agustín Rodriges on 11-28-2023 Estimated GFR (CKD-EPI) > 60.0 mL/Min [facility] Creatinine Clearance (Chem 65.76 [facility] Nucleated erythrocytes [Pres ence] in Blood by Automated countOrdered By: Agustín Rodriges on 11-28-2023 Nucleated RBC Auto Ql (Bld) 0.1 /100{WBC} 0-0.5 [facility] Partial Thromboplastin Timeo n 11-28-2023 aPTT Coag (Bld) [Time] 31.5 s Normal 25.1-36.5 [facility] Comment on above: Result Comment: A he matocrit value greater than 55% may lead to inaccurate results in coagulation testing. Patients having hematocrit values >55% require a special collection tube for coagulation studies. Please contact the laboratory at [phone] for redraw instructions. PERFORMED BY: [address] [place] [address] PATHOLOGIST VENDOR SPECIALIST HANANE CASTRO M.D. Performed By: #### E SR, CBC, ADDONUAPLUS, HEPATIC, CREAT, MG, CRP #### [address] Platelet mean volume [Entiti c volume] in Blood by Automated countOrdered By: Agustín Rodriges on 11-28-2023 Platelet mean volume (Bld) [Entitic vol] 9.8 fL Normal 6.3-10.7 [facility] Comment on above: Performed By: #### E SR, CBC, ADDONUAPLUS, HEPATIC, CREAT, MG, CRP #### [address] Platelets [#/volume] in Bloo d by Automated countOrdered By: Agustín Rodriges on 11-28-2023 Platelets (Bld) [#/Vol] 185 10*3/uL Normal 150-450 [facility] Comment on above: Performed By: #### E SR, CBC, ADDONUAPLUS, HEPATIC, CREAT, MG, CRP #### [facility] [address] Potassium [Moles/volume] in Serum or PlasmaOrdered By: Agustín Rodriges on 11-28-2023 Potassium [Moles/Vol] 3.4 mmol/L Low 3.5-5.1 [facility] Comment on above: Performed By: #### E SR, CBC, ADDONUAPLUS, HEPATIC, CREAT, MG, CRP #### [facility] [address] Prothrombin time (PT)Ordered By: Agustín Rodriges on 11-28-2023 PT Coag (PPP) [Time] 15.2 s High 9.0-12.9 [facility] Comment on above: A hematocrit value g reater than 55% may lead to inaccurate results in coagulation testing. Patients having hematocrit values >55% require a special collection tube for coagulation studies. Please contact the laboratory at [phone] for redraw instructions. Result Comment: A he matocrit value greater than 55% may lead to inaccurate results in coagulation testing. Patients having hematocrit values >55% require a special collection tube for coagulation studies. Please contact the laboratory at [phone] for redraw instructions. Performed By: #### E SR, CBC, ADDONUAPLUS, HEPATIC, CREAT, MG, CRP #### [address] Serum or plasma anion gap de terminationOrdered By: Agustín Rodriges on 11-28-2023 Anion gap [Moles/Vol] 10.5 mmol/L Normal 6.0-15.0 [facility] Comment on above: Performed By: #### E SR, CBC, ADDONUAPLUS, HEPATIC, CREAT, MG, CRP #### [address] Sodium [Moles/volume] in Ser um or PlasmaOrdered By: Agustín Rodriges on 11-28-2023 Sodium [Moles/Vol] 143 mmol/L Normal 136-145 [facility] Comment on above: Performed By: #### E SR, CBC, ADDONUAPLUS, HEPATIC, CREAT, MG, CRP #### [facility] [address] Troponin I High Sensitivityo n 11-28-2023 Troponin I High Sensitivity 9.8 pg/mL Normal 0.0-15.0 [facility] Comment on above: Result Comment: PERF ORMED BY: [address] [place] [address] PATHOLOGIST VENDOR SPECIALIST HANANE CASTRO M.D. Performed By: #### E SR, CBC, ADDONUAPLUS, HEPATIC, CREAT, MG, CRP #### [address] Troponin I.cardiac [Mass/vol ume] in Serum or Plasma by Detection limit <= 0.01 ng/Ordered By: Agustín Rodriges on 11-28-2023 Troponin I.cardiac DL <= 0.01 ng/mL [Mass/Vol] 9.8 pg/mL 0.0-15.0 [facility] Urea nitrogen [Mass/volume] in Serum or PlasmaOrdered By: Agustín Rodriges on 11-28-2023 Urea nitrogen [Mass/Vol] 10 mg/dL Normal 02-25 [facility] Comment on above: Performed By: #### E SR, CBC, ADDONUAPLUS, HEPATIC, CREAT, MG, CRP #### [facility] [address] [place] [address] [place] Alanine aminotransferase [En zymatic activity/volume] in Serum or PlasmaOrdered By: Robert Ledezma on 10-21-2023 ALT [Catalytic activity/Vol] 62 U/L High [facility] Comment on above: Performed By: #### E SR, CBC, ADDONUAPLUS, HEPATIC, CREAT, MG, CRP #### [facility] [address] [place] [address] [place] Albumin [Mass/volume] in Ser um or Plasma by Bromocresol green (BCG) dye binding methoOrdered By: Robert Ledezma on 10-21-2023 Albumin BCG dye [Mass/Vol] 3.8 g/dL 3.5-5.7 [facility] Alkaline phosphatase [Enzyma tic activity/volume] in Serum or PlasmaOrdered By: Robert Ledezma on 10-21-2023 ALP [Catalytic activity/Vol] 126 U/L High 34-104 [facility] Comment on above: Performed By: #### E SR, CBC, ADDONUAPLUS, HEPATIC, CREAT, MG, CRP #### [facility] [address] Alpha tocopherol [Mass/volum e] in Serum or PlasmaOrdered By: Robert Ledezma on 10-21-2023 Alpha tocopherol [Mass/Vol] 2.4 mg/L Low 9.0-29.0 [facility] Comment on above: This test was develo ped and its performance characteristicsdetermined by [employer]. It has not been cleared orapproved by the Food and Drug Administration. Aspartate aminotransferase [ Enzymatic activity/volume] in Serum or PlasmaOrdered By: Robert Ledezma on 10-21-2023 AST [Catalytic activity/Vol] 39 U/L Normal 13-39 [facility] Comment on above: Performed By: #### E SR, CBC, ADDONUAPLUS, HEPATIC, CREAT, MG, CRP #### [address] Automated basophil %Ordered By: Robert Ledezma on 10-21-2023 Basophils/100 WBC (Bld) 0.7 % Normal . [facility] Comment on above: Performed By: #### E SR, CBC, ADDONUAPLUS, HEPATIC, CREAT, MG, CRP #### [facility] [address] [place] [address] Automated basophil countOrde red By: Robert Ledezma on 10-21-2023 Basophils (Bld) [#/Vol] 0.0 10*3/uL Normal 0.0-0.2 [facility] Comment on above: Result Comment: PERF ORMED BY: [place] [address] PATHOLOGIST VENDOR SPECIALIST HANANE CASTRO M.D. Performed By: #### E SR, CBC, ADDONUAPLUS, HEPATIC, CREAT, MG, CRP #### [address] Automated blood monocyte cou ntOrdered By: Robert Ledezma on 10-21-2023 Monocytes (Bld) [#/Vol] 0.4 10*3/uL Normal 0.0-0.8 [facility] Comment on above: Performed By: #### E SR, CBC, ADDONUAPLUS, HEPATIC, CREAT, MG, CRP #### [address] Automated eosinophil %Ordere d By: Robert Ledezma on 10-21-2023 Eosinophils/100 WBC (Bld) 5.9 % Normal . [facility] Comment on above: Performed By: #### E SR, CBC, ADDONUAPLUS, HEPATIC, CREAT, MG, CRP #### [address] Automated eosinophil countOr dered By: Robert Ledezma on 10-21-2023 Eosinophils (Bld) [#/Vol] 0.2 10*3/uL Normal 0.0-0.45 [facility] Comment on above: Performed By: #### E SR, CBC, ADDONUAPLUS, HEPATIC, CREAT, MG, CRP #### [address] Automated monocyte %Ordered By: Robert Ledezma on 10-21-2023 Monocytes/100 WBC (Bld) 10.0 % Normal . [facility] Comment on above: Performed By: #### E SR, CBC, ADDONUAPLUS, HEPATIC, CREAT, MG, CRP #### [address] Automated neutrophil %Ordere d By: Robert Ledezma on 10-21-2023 Neutrophils/100 WBC (Bld) 66.3 % Normal . [facility] Comment on above: Performed By: #### E SR, CBC, ADDONUAPLUS, HEPATIC, CREAT, MG, CRP #### [address] Bilirubin.total [Mass/volume ] in Serum or PlasmaOrdered By: Robert Ledezma on 10-21-2023 Bilirubin [Mass/Vol] 0.4 mg/dL Normal 0.3-1.0 [facility] Comment on above: Performed By: #### E SR, CBC, ADDONUAPLUS, HEPATIC, CREAT, MG, CRP #### [facility] [address] [place] [id number] [facility] Blood selenium measurement ( mass/volume)Ordered By: Robert Ledezma on 10-21-2023 Selenium (Bld) [Mass/Vol] 130 ug/L 93-198 [facility] Comment on above: This test was develo ped and its performance characteristicsdetermined by [employer]. It has not been cleared orapproved by the Food and Drug Administration.Performed at: [facility] [address] [id number] Director: London Vargas MD, Phone: [phone] Blood thiamine measurement ( moles/volume)Ordered By: Robert Ledezma on 10-21-2023 Thiamine (Bld) [Moles/Vol] 127.6 nmol/L 66.5-200.0 [facility] Comment on above: This test was develo ped and its performance characteristicsdetermined by [employer]. It has not been cleared orapproved by the Food and Drug Administration.Performed at: [facility] [address] [id number] Director: London Vargas MD, Phone: [phone] Calcium [Mass/volume] in Ser um or PlasmaOrdered By: Robert Ledezma on 10-21-2023 Calcium [Mass/Vol] 8.6 mg/dL Normal 8.6-10.3 [facility] Comment on above: Performed By: #### E SR, CBC, ADDONUAPLUS, HEPATIC, CREAT, MG, CRP #### [facility] [address] [place] [address] [facility] Carbon dioxide, total [Moles /volume] in Serum or PlasmaOrdered By: Robert Ledezma on 10-21-2023 CO2 [Moles/Vol] 28.4 mmol/L Normal 21.0-31.0 [facility] Comment on above: Performed By: #### E SR, CBC, ADDONUAPLUS, HEPATIC, CREAT, MG, CRP #### [address] Chloride [Moles/volume] in S maurilio or PlasmaOrdered By: Robert Ledezma on 10-21-2023 Chloride [Moles/Vol] 109 mmol/L High 98-107 [facility] Comment on above: Performed By: #### E SR, CBC, ADDONUAPLUS, HEPATIC, CREAT, MG, CRP #### [address] Complete Blood Count Auto Di ffon 10-21-2023 Mean Corpuscular HGB Conc 33.0 g/dL Normal 32.0-35.0 [facility] Comment on above: Performed By: #### E SR, CBC, ADDONUAPLUS, HEPATIC, CREAT, MG, CRP #### [address] NRBC% 0.1 /100{WBC} Normal 0-0.5 [facility] Comment on above: Performed By: #### E SR, CBC, ADDONUAPLUS, HEPATIC, CREAT, MG, CRP #### [address] Comprehensive Metabolic Pane vinh 10-21-2023 Albumin [Mass/Vol] 3.8 g/dL Normal 3.5-5.7 [facility] Comment on above: Performed By: #### E SR, CBC, ADDONUAPLUS, HEPATIC, CREAT, MG, CRP #### [address] Creatinine Clr Calc Pharmacy 65.78 Normal [facility] Comment on above: Performed By: #### E SR, CBC, ADDONUAPLUS, HEPATIC, CREAT, MG, CRP #### [address] GFR/1.73 sq M.predicted MDRD (S/P/Bld) [Vol rate/Area] mL/min/{1.73_m2} Normal [facility] Comment on above: Performed By: #### E SR, CBC, ADDONUAPLUS, HEPATIC, CREAT, MG, CRP #### [facility] [address] Creatinine [Mass/volume] in Serum or PlasmaOrdered By: Robert Ledezma on 10-21-2023 Creatinine [Mass/Vol] 0.62 mg/dL Normal 0.60-1.20 [facility] Comment on above: Performed By: #### E SR, CBC, ADDONUAPLUS, HEPATIC, CREAT, MG, CRP #### [facility] [address] Erythrocyte distribution wid th [Ratio] by Automated countOrdered By: Robert Ledezma on 10-21-2023 Erythrocyte distribution width (RBC) [Ratio] 13.7 % Normal 11.9-15.3 [facility] Comment on above: Performed By: #### E SR, CBC, ADDONUAPLUS, HEPATIC, CREAT, MG, CRP #### [facility] [address] Erythrocytes [#/volume] in B lood by Automated countOrdered By: Robert Ledezma on 10-21-2023 RBC (Bld) [#/Vol] 4.20 10*6/uL Normal 3.60-5.00 [facility] Comment on above: Performed By: #### E SR, CBC, ADDONUAPLUS, HEPATIC, CREAT, MG, CRP #### [facility] [address] [place] [address] [place] Ferritin [Mass/volume] in Se rum or PlasmaOrdered By: Robert Ledezma on 10-21-2023 Ferritin [Mass/Vol] 51.5 ng/mL Normal 11.0-306.8 [facility] Comment on above: Performed By: #### E SR, CBC, ADDONUAPLUS, HEPATIC, CREAT, MG, CRP #### [facility] [address] [place] [address] [place] Folate [Mass/volume] in Seru m or PlasmaOrdered By: Robert Ledezma on 10-21-2023 Folate [Mass/Vol] 10.1 ng/mL >5.9 [facility] Comment on above: Folate reference ran ge: >5.9 ng/mlThe WHO technical consultation on folate and vitamin [id number] has determined that folate concentrations lessthan 4 ng/ml are considered deficient. Gamma-tocopherol measurement (mass/volume)Ordered By: Robert Ledezma on 10-21-2023 Gamma tocopherol [Mass/Vol] 0.6 mg/L 0.5-4.9 [facility] Comment on above: This test was develo ped and its performance characteristicsdetermined by [facility]. It has not been cleared orapproved by the Food and Drug Administration.Reference intervals for alpha and gamma-tocopheroldetermined from National Health and Nutrition ExaminationSurvey, 0709-0391. Individuals with alpha-tocopherol levelsless than 5.0 mg/L are considered vitamin E deficient. Glucose [Mass/volume] in Ser um or PlasmaOrdered By: Robert Ledezma on 10-21-2023 Glucose [Mass/Vol] 75 mg/dL Normal 70-100 [facility] Comment on above: ADA recommended refe rence rangeRandom Glucose Reference Range is dependent on time and content of last meal. Glucose of more than 200 mg/dL in a nonstressed, ambulatory subject supports the diagnosis of Diabetes Mellitus. Result Comment: [place] om Glucose Reference Range is dependent on time and content of last meal. Glucose of more than 200 mg/dL in a nonstressed, ambulatory subject supports the diagnosis of Diabetes Mellitus. ADA recommended reference range Performed By: #### E SR, CBC, ADDONUAPLUS, HEPATIC, CREAT, MG, CRP #### [facility] [address] Hematocrit [Volume Fraction] of Blood by Automated countOrdered By: Robert Ledezma on 10-21-2023 Hematocrit (Bld) [Volume fraction] 40.5 % Normal 34.0-46.4 [facility] Comment on above: Performed By: #### E SR, CBC, ADDONUAPLUS, HEPATIC, CREAT, MG, CRP #### [facility] [address] Hemoglobin [Mass/volume] in BloodOrdered By: Robert Ledezma on 10-21-2023 Hemoglobin (Bld) [Mass/Vol] 13.4 g/dL Normal 11.8-15.4 [facility] Comment on above: Performed By: #### E SR, CBC, ADDONUAPLUS, HEPATIC, CREAT, MG, CRP #### [facility] [address] [place] [address] [place] Iron [Mass/volume] in Serum or PlasmaOrdered By: Robert Ledezma on 10-21-2023 Iron [Mass/Vol] 67 ug/dL Normal 50-212 [facility] Comment on above: Performed By: #### E SR, CBC, ADDONUAPLUS, HEPATIC, CREAT, MG, CRP #### [facility] [address] [place] [address] [place] Iron and TIBC Profileon 10-02 % Iron Saturation 17.9 % Low 20-50 [facility] Comment on above: Performed By: #### E SR, CBC, ADDONUAPLUS, HEPATIC, CREAT, MG, CRP #### [facility] [address] Total Iron Binding Capacity 375 ug/dL Normal 255-450 [facility] Comment on above: Performed By: #### E SR, CBC, ADDONUAPLUS, HEPATIC, CREAT, MG, CRP #### [facility] [address] [place] [address] [place] Iron binding capacity [Mass/ volume] in Serum or PlasmaOrdered By: Robert Ledezma on 10-21-2023 Iron binding capacity [Mass/Vol] 375 ug/dL 255-450 [facility] Iron saturation [Mass Fracti on] in Serum or PlasmaOrdered By: Robert Ledezma on 10-21-2023 Iron saturation [Mass fraction] 17.9 % 20-50 [facility] Leukocytes [#/volume] correc zee for nucleated erythrocytes in Blood by Automated counOrdered By: Robert Ledezma on 10-21-2023 WBC corrected for nucl RBC Auto (Bld) [#/Vol] 4.0 10*3/uL 3.8-11.6 [facility] Leukocytes [#/volume] in Blo od by Automated countOrdered By: Robert Ledezma on 10-21-2023 WBC (Bld) [#/Vol] 4.0 10*3/uL Normal 3.8-11.6 [facility] Comment on above: Performed By: #### E SR, CBC, ADDONUAPLUS, HEPATIC, CREAT, MG, CRP #### [facility] [address] Lymphocytes [#/volume] in Bl ood by Automated countOrdered By: Roebrt Ledezma on 10-21-2023 Lymphocytes (Bld) [#/Vol] 0.7 10*3/uL Low 1.00-4.8 [facility] Comment on above: Performed By: #### E SR, CBC, ADDONUAPLUS, HEPATIC, CREAT, MG, CRP #### [facility] [address] [place] [address] [place] Lymphocytes/100 leukocytes i n Blood by Automated countOrdered By: Robert Ledezma on 10-21-2023 Lymphocytes/100 WBC (Bld) 17.1 % Normal . [facility] Comment on above: Performed By: #### E SR, CBC, ADDONUAPLUS, HEPATIC, CREAT, MG, CRP #### [facility] [address] MCH [Entitic mass] by Automa zee countOrdered By: Robert Ledezma on 10-21-2023 MCH (RBC) [Entitic mass] 31.9 pg Normal 24.7-34.3 [facility] Comment on above: Performed By: #### E SR, CBC, ADDONUAPLUS, HEPATIC, CREAT, MG, CRP #### [facility] [address] MCHC Auto (RBC) [Mass/Vol]Or dered By: Robert Ledezma on 10-21-2023 MCHC (RBC) [Mass/Vol] 33.0 g/dL 32.0-35.0 [facility] MCV [Entitic volume] by Auto mated countOrdered By: Robert Ledezma on 10-21-2023 MCV (RBC) [Entitic vol] 96.5 fL Normal 80-100 [facility] Comment on above: Performed By: #### E SR, CBC, ADDONUAPLUS, HEPATIC, CREAT, MG, CRP #### [facility] [address] Methylmalonic Acidon 024 Methylmalonic Acid 206 Normal 0-378 [facility] Comment on above: Order Comment: Fasti ng? (See Test/Proc Notes): N Result Comment: This test was developed and its performance characteristics determined by [facility]. It has not been cleared or approved by the Food and Drug Administration. Performed at: [address] [id number] [employer] Filler: London Vargas MD, Phone: [phone] Performed By: #### E SR, CBC, ADDONUAPLUS, HEPATIC, CREAT, MG, CRP #### [facility] [address] [place] [address] Neutrophils [#/volume] in Bl ood by Automated countOrdered By: Robert Ledezma on 10-21-2023 Neutrophils (Bld) [#/Vol] 2.7 10*3/uL Normal 1.8-7.7 [facility] Comment on above: Performed By: #### E SR, CBC, ADDONUAPLUS, HEPATIC, CREAT, MG, CRP #### [facility] [address] [place] [address] No Panel InformationOrdered By: Robert Ledezma on 10-21-2023 Estimated GFR (CKD-EPI) > 60.0 mL/Min [facility] Creatinine Clearance (Chem 65.78 [facility] Vitamin C level 0.9 mg/dL 0.4-2.0 [facility] Comment on above: This test was develo ped and its performance characteristicsdetermined by [facility]. It has not been cleared orapproved by the Food and Drug Administration.Vitamin C deficiency is generally defined as plasma orserum concentrations less than 0.2 mg/dL and levels between0.2 and 0.4 mg/dL are considered low.Performed at: [facility] [id number] Director: London Vargas MD, Phone: [phone] Nucleated erythrocytes [Pres ence] in Blood by Automated countOrdered By: Robert Ledezma on 10-21-2023 Nucleated RBC Auto Ql (Bld) 0.1 /100{WBC} 0-0.5 [facility] Plasma zinc measurementOrder ed By: Robert Ledezma on 10-21-2023 Zinc [Mass/Vol] 56 ug/dL 44-115 [facility] Comment on above: This test was develo ped and its performance characteristicsdetermined by [employer]. It has not been cleared orapproved by the Food and Drug Administration. Detection Limit = 5Performed at: [facility] [id number] Director: London Vargas MD, Phone: [phone] Platelet mean volume [Entiti c volume] in Blood by Automated countOrdered By: Robert Ledezma on 10-21-2023 Platelet mean volume (Bld) [Entitic vol] 9.6 fL Normal 6.3-10.7 [facility] Comment on above: Performed By: #### E SR, CBC, ADDONUAPLUS, HEPATIC, CREAT, MG, CRP #### [facility] [address] Platelets [#/volume] in Bloo d by Automated countOrdered By: Robert Ledezma on 10-21-2023 Platelets (Bld) [#/Vol] 180 10*3/uL Normal 150-450 [facility] Comment on above: Performed By: #### E SR, CBC, ADDONUAPLUS, HEPATIC, CREAT, MG, CRP #### [facility] [address] [place] [address] [place] Potassium [Moles/volume] in Serum or PlasmaOrdered By: Robert Ledezma on 10-21-2023 Potassium [Moles/Vol] 4.2 mmol/L Normal 3.5-5.1 [facility] Comment on above: Performed By: #### E SR, CBC, ADDONUAPLUS, HEPATIC, CREAT, MG, CRP #### [facility] [address] [place] [id number] [facility] Protein [Mass/volume] in Ser um or PlasmaOrdered By: Robert Ledezma on 10-21-2023 Protein [Mass/Vol] 5.9 g/dL Low 6.4-8.9 [facility] Comment on above: Performed By: #### E SR, CBC, ADDONUAPLUS, HEPATIC, CREAT, MG, CRP #### [facility] [address] [place] [address] [facility] Retinol [Mass/volume] in Ser um or PlasmaOrdered By: Robert Ledezma on 10-21-2023 Retinol [Mass/Vol] 43.5 ug/dL 22.0-69.5 [facility] Comment on above: Reference intervals for vitamin A determined from [facility] studies. Individuals with vitamin A less than 20ug/dL are considered vitamin A deficient and those withserum concentrations less than 10 ug/dL are consideredseverely deficient.This test was developed and its performance characteristicsdetermined by Friday. It has not been cleared orapproved by the Food and Drug Administration.Performed at: [facility] [id number] Director: London Vargas MD, Phone: [phone] Selenium, Serum Or Plasmaon 10-21-2023 Selenium, Serum Or Plasma 130 Normal 93-198 [facility] Comment on above: Order Comment: Fasti ng? (See Test/Proc Notes): N Result Comment: This test was developed and its performance characteristics determined by [employer]. It has not been cleared or approved by the Food and Drug Administration. Performed at: [facility] [id number] [employer] Filler: London Vargas MD, Phone: [phone] PERFORMED BY: [place] [id number] PATHOLOGIST VENDOR SPECIALIST HANANE CASTRO M.D. Performed By: #### E SR, CBC, ADDONUAPLUS, HEPATIC, CREAT, MG, CRP #### [facility] [address] Serum globulin measurement b y calculation (mass/volume)Ordered By: Robert Ledezma on 10-21-2023 Globulin (S) [Mass/Vol] 2.1 g/dL Normal [facility] Comment on above: Performed By: #### E SR, CBC, ADDONUAPLUS, HEPATIC, CREAT, MG, CRP #### [facility] [address] Serum or plasma 25-hydroxyca lciferol measurement (mass/volume)Ordered By: Robert Ledezma on 10-21-2023 25-hydroxyvitamin D2 [Mass/Vol] 30 ng/mL . [facility] Comment on above: This test was develo ped and its performance characteristicsdetermined by [employer]. It has not been cleared or approvedby the Food and Drug Administration. Serum or plasma 25-hydroxyvi tamin D measurement (mass/volume)Ordered By: Robert Ledezma on 10-21-2023 25-hydroxyvitamin D [Mass/Vol] 33 ng/mL . [facility] Comment on above: Reference Range:All Ages: Target levels 30 - 100 Serum or plasma albumin/glob ulin mass ratioOrdered By: Robert Ledezma on 10-21-2023 Albumin/Globulin [Mass ratio] 1.8 {ratio} Normal [facility] Comment on above: Performed By: #### E SR, CBC, ADDONUAPLUS, HEPATIC, CREAT, MG, CRP #### [facility] [address] [place] [address] Serum or plasma anion gap de terminationOrdered By: Robert Ledezma on 10-21-2023 Anion gap [Moles/Vol] 8.8 mmol/L Normal 6.0-15.0 [facility] Comment on above: Performed By: #### E SR, CBC, ADDONUAPLUS, HEPATIC, CREAT, MG, CRP #### [facility] [address] [place] [address] Serum or plasma calcidiol me asurement (mass/volume)Ordered By: Robert Ledezma on 10-21-2023 25-hydroxyvitamin D3 [Mass/Vol] 3.3 ng/mL . [facility] Comment on above: This test was develo ped and its performance characteristicsdetermined by [employer]. It has not been cleared or approvedby the Food and Drug Administration.Performed at: [facility] [address] [place], [place] [id number] Director: Ajit Mejía MD, Phone: [phone] Serum or plasma methylmalona te measurement (moles/volume)Ordered By: Robert Ledezma on 10-21-2023 Methylmalonate [Moles/Vol] 206 nmol/L 0-378 [facility] Comment on above: This test was develo ped and its performance characteristicsdetermined by [employer]. It has not been cleared orapproved by the Food and Drug Administration.Performed at: [facility] [id number] Director: London Vargas MD, Phone: [phone] Serum or plasma pyridoxine m easurement (mass/volume)Ordered By: Robert Ledezma on 10-21-2023 Pyridoxine [Mass/Vol] 12.3 ug/L 3.4-65.2 [facility] Comment on above: This test was develo ped and its performance characteristicsdetermined by [employer]. It has not been cleared orapproved by the Food and Drug Administration. Deficiency: <3.4 Marginal: 3.4 - 5.1 Adequate: >5.1Performed at: [facility] [id number] Director: London Vargas MD, Phone: [phone] Sodium [Moles/volume] in Ser um or PlasmaOrdered By: Robert Ledezma on 10-21-2023 Sodium [Moles/Vol] 142 mmol/L Normal 136-145 [facility] Comment on above: Performed By: #### E SR, CBC, ADDONUAPLUS, HEPATIC, CREAT, MG, CRP #### [facility] [address] [place] [address] Transferrin [Mass/volume] in Serum or PlasmaOrdered By: Robert Ledezma on 10-21-2023 Transferrin [Mass/Vol] 268 mg/dL Normal 203-362 [facility] Comment on above: Performed By: #### E SR, CBC, ADDONUAPLUS, HEPATIC, CREAT, MG, CRP #### [facility] [address] Urea nitrogen [Mass/volume] in Serum or PlasmaOrdered By: Robert Rubyflorencio on 10-21-2023 Urea nitrogen [Mass/Vol] 12 mg/dL Normal 7-25 [facility] Comment on above: Performed By: #### E SR, CBC, ADDONUAPLUS, HEPATIC, CREAT, MG, CRP #### [facility] [address] Vit. B12/Folate Profileon Folate 10.1 ng/mL Normal >5.9 [facility] Comment on above: Result Comment: Enedelia te reference range: >5.9 ng/ml The WHO technical consultation on folate and vitamin b12 deficiencies has determined that folate concentrations less than 4 ng/ml are considered deficient. PERFORMED BY: [place] [address] PATHOLOGIST VENDOR SPECIALIST HANANE CASTRO M.D. Performed By: #### E SR, CBC, ADDONUAPLUS, HEPATIC, CREAT, MG, CRP #### [facility] [address] [place] [address] Vitamin Aon 10-21-2023 Vitamin A 43.5 ug/dL Normal 22.0-69.5 [facility] Comment on above: Order Comment: Fasti ng? (See Test/Proc Notes): N Result Comment: Refe rence intervals for vitamin A determined from [facility] internal studies. Individuals with vitamin A less than 20 ug/dL are considered vitamin A deficient and those with serum concentrations less than 10 ug/dL are considered severely deficient. This test was developed and its performance characteristics determined by [employer]. It has not been cleared or approved by the Food and Drug Administration. Performed at: [address] [id number] [employer] Filler: London Vargas MD, Phone: [phone] Performed By: #### E SR, CBC, ADDONUAPLUS, HEPATIC, CREAT, MG, CRP #### [address] Vitamin B1 (Thiamine) Bloodo n 10-21-2023 Vitamin B1 (Thiamine) Blood 127.6 Normal 66.5-200.0 [facility] Comment on above: Result Comment: This test was developed and its performance characteristics determined by [facility]. It has not been cleared or approved by the Food and Drug Administration. Performed at: [address] [id number] [employer] Filler: London Vargas MD, Phone: [phone] PERFORMED BY: [place] [address] PATHOLOGIST VENDOR SPECIALIST HANANE CASTRO M.D. Performed By: #### E SR, CBC, ADDONUAPLUS, HEPATIC, CREAT, MG, CRP #### [address] Vitamin B12 ser/plasOrdered By: Robert Ledezma on 10-21-2023 Cobalamin (Vitamin B12) [Mass/Vol] 588 pg/mL Normal 180-914 [facility] Comment on above: Performed By: #### E SR, CBC, ADDONUAPLUS, HEPATIC, CREAT, MG, CRP #### [address] Vitamin B6on 10-21-2023 Vitamin B6 12.3 Normal 3.4-65.2 [facility] Comment on above: Result Comment: This test was developed and its performance characteristics determined by [facility]. It has not been cleared or approved by the Food and Drug Administration. Deficiency: <3.4 Marginal: 3.4 - 5.1 Adequate: >5.1 Performed at: [address] [id number] [employer] Filler: London Vargas MD, Phone: [phone] PERFORMED BY: [address] [address] PATHOLOGIST VENDOR SPECIALIST HANANE CASTRO M.D. Performed By: #### E SR, CBC, ADDONUAPLUS, HEPATIC, CREAT, MG, CRP #### [address] Vitamin Con 10-21-2023 Vitamin C 0.9 mg/dL Normal 0.4-2.0 [facility] Comment on above: Result Comment: This test was developed and its performance characteristics determined by [facility]. It has not been cleared or approved by the Food and Drug Administration. Vitamin C deficiency is generally defined as plasma or serum concentrations less than 0.2 mg/dL and levels between 0.2 and 0.4 mg/dL are considered low. Performed at: [address] [id number] [employer] Filler: London Vargas MD, Phone: [phone] PERFORMED BY: [place] [address] PATHOLOGIST VENDOR SPECIALIST HANANE CASTRO M.D. Performed By: #### E SR, CBC, ADDONUAPLUS, HEPATIC, CREAT, MG, CRP #### [address] Vitamin D 25 Hydroxy,Tot+D2+ D3on 10-21-2023 [facility] Vitamin D 25 OH 33 ng/mL Normal . [facility] Comment on above: Result Comment: Refe rence Range: All Ages: Target levels 30 - 100 Performed By: #### E SR, CBC, ADDONUAPLUS, HEPATIC, CREAT, MG, CRP #### [address] Vitamin D-2 30 ng/mL Normal . [facility] Comment on above: Result Comment: This test was developed and its performance characteristics determined by [facility]. It has not been cleared or approved by the Food and Drug Administration. Performed By: #### E SR, CBC, ADDONUAPLUS, HEPATIC, CREAT, MG, CRP #### [address] Vitamin D-3 3.3 ng/mL Normal . [facility] Comment on above: Result Comment: This test was developed and its performance characteristics determined by [facility]. It has not been cleared or approved by the Food and Drug Administration. Performed at: [facility] [address] [place] [id number] [employer] Filler: Ajit Mejía MD, Phone: [phone] PERFORMED BY: [place] [address] PATHOLOGIST VENDOR SPECIALIST HANANE CASTRO M.D. Performed By: #### E SR, CBC, ADDONUAPLUS, HEPATIC, CREAT, MG, CRP #### [facility] [address] [place] [address] Vitamin E, Alpha Gamma Tocop on 10-21-2023 Vitamin E Alpha Tocopherol 2.4 mg/L Low 9.0-29.0 [facility] Comment on above: Order Comment: Fasti ng? (See Test/Proc Notes): N Result Comment: This test was developed and its performance characteristics determined by [facility]. It has not been cleared or approved by the Food and Drug Administration. Performed By: #### E SR, CBC, ADDONUAPLUS, HEPATIC, CREAT, MG, CRP #### [address] Vitamin E GammaTocopherol 0.6 mg/L Normal 0.5-4.9 [facility] Comment on above: Order Comment: Fasti ng? (See Test/Proc Notes): N Result Comment: This test was developed and its performance characteristics determined by [facility]. It has not been cleared or approved by the Food and Drug Administration. Reference intervals for alpha and gamma-tocopherol determined from National Health and Nutrition Examination Survey, 7350-7865. Individuals with alpha-tocopherol levels less than 5.0 mg/L are considered vitamin E deficient. Performed By: #### E SR, CBC, ADDONUAPLUS, HEPATIC, CREAT, MG, CRP #### [facility] [address] [place] [address] Zinc, Plasmaon 10-21-2023 Zinc, Plasma 56 ug/dL Normal 44-115 [facility] Comment on above: Order Comment: Fasti ng? (See Test/Proc Notes): N Result Comment: This test was developed and its performance characteristics determined by [employer]. It has not been cleared or approved by the Food and Drug Administration. Detection Limit = 5 Performed at: [facility] [id number] [employer] Filler: London Vargas MD, Phone: [phone] Performed By: #### E SR, CBC, ADDONUAPLUS, HEPATIC, CREAT, MG, CRP #### [facility] [address] [place] [address] [facility] Activated partial thrombopla stin time (aPTT) in platelet poor plasma by coagulation aOrdered By: Catracho Ferguson on 09-29-2023 aPTT Coag (PPP) [Time] 32.5 s 25.1-36.5 [facility] Comment on above: A hematocrit value g reater than 55% may lead to inaccurate results in coagulation testing. Patients having hematocrit values >55% require a special collection tube for coagulation studies. Please contact the laboratory at [phone] for redraw instructions. Coagulation Profileon 2023 aPTT Coag (Bld) [Time] 32.5 s Normal 25.1-36.5 [facility] Comment on above: Result Comment: A matocrit value greater than 55% may lead to inaccurate results in coagulation testing. Patients having hematocrit values >55% require a special collection tube for coagulation studies. Please contact the laboratory at [phone] for redraw instructions. PERFORMED BY: [address] [address] PATHOLOGIST VENDOR SPECIALIST HANANE CASTRO M.D. Performed By: #### E SR, CBC, ADDONUAPLUS, HEPATIC, CREAT, MG, CRP #### [facility] [address] [place] [address] [facility] INR in Platelet poor plasma by Coagulation assayOrdered By: Catracho Ferguson on 09-29-2023 INR Coag (PPP) [Relative time] 1.1 {INR} Normal [facility] Comment on above: INR Therapeutic Rang e A) Pre- and Peroperative OAT started two weeks before surgery. NOT HIP SURGERY: 1.5 - 2.5 HIP SURGERY: 2 - 3B) Primary and secondary prevention of venous THROMBOSIS: 2 - 3C) Active venous thrombosis, pulmonary embolismand prevention of recurrent venous thrombosis: 2 - 3D) Prevention of arterial thromboembolismincluding patients with mechanical heart valves: 3 - 4.5 Result Comment: INR Therapeutic Range A) Pre- and Peroperative OAT started two weeks before surgery. NOT HIP SURGERY: 1.5 - 2.5 HIP SURGERY: 2 - 3 B) Primary and secondary prevention of venous THROMBOSIS: 2 - 3 C) Active venous thrombosis, pulmonary embolism and prevention of recurrent venous thrombosis: 2 - 3 D) Prevention of arterial thromboembolism including patients with mechanical heart valves: 3 - 4.5 Performed By: #### E SR, CBC, ADDONUAPLUS, HEPATIC, CREAT, MG, CRP #### [facility] [address] [place] 09-29-2023 L Specimen: [id number] Received: 09/29/23 Status: TIKA Du Num: [id number] Spec Type: Surgical Subm Dr: Neto Sheets DO Tissues: A Parotid (LT PAROTID MASS) Procedures: S 100, HE/7, Gross/Micro L5, GFAP, Ki-67, SOX-10, GATA3, p40, FS HE/2, DIFF QWIK Age/ Patient Sex Location Account Attending Physician Rebecca Herrera 72/F [place] [id number] Neto Sheets DO SPEC NUM: [id number] RECD: 09/29/23 STATUS: TIKA DU NUM: [id number] BRYAN: 09/29/[address]: Neto Sheets DO ENTERED: 09/29/[address] [facility] [address]: SPEC TYPE: Surgical DEPT: S ORDERED: S 100, HE/7, Gross/Micro L5, GFAP, Ki-67, SOX-10, GATA3, p40, FS HE/2, DIFF QWIK ORDERED: S 100, HE/7, Gross/Micro L5, GFAP, Ki-67, SOX-10, GATA3, p40, FS HE/2, DIFF QWIK Supplemental Report Addendum 1 Entered: 10/14/23 Supplemental for findings of consultation report from [facility]: -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 (See comment) Note: -Please also see detailed description in the diagnosis comment of the report on file Addendum Signed (signature on file) Lucina Chang MD 10/14/23 0930 Pathological Diagnosis Left parotid mass, parotidectomy: -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 (at least 2.5 x 1.7 x 1.1 cm), demonstrating evidence of chondroid differentiation per features of pleomorphic adenoma -However, at the other half of the tumor, another lobulated lesion with much more cellular proliferation consisting of focal areas of papillary and cribriform like differentiation, Specimen: [id number] Received: 09/29/23 Status: TIKA Du Num: [id number] Spec Type: Surgical Subm Dr: Neto Sheets DO Tissues: A Parotid (LT PAROTID MASS) Procedures: S 100, HE/7, Gross/Micro L5, GFAP, Ki-67, SOX-10, GATA3, p40, FS HE/2, DIFF QWIK Patient: Rebecca Herrera [id number] (Continued) Specimen: [id number] Received: 09/29/23 (Continued) Pathological Diagnosis (Continued) Signed (signature on file) Lucina Chang MD 10/02/23 1144 Specimen: [id number] Received: 09/29/23 Status: TIKA Du Num: [id number] Spec Type: Surgical Subm Dr: Neto Sheets DO Tissues: A Parotid (LT PAROTID MASS) Procedures: S 100, HE/7, Gross/Micro L5, GFAP, Ki-67, SOX-10, GATA3, p40, FS HE/2, DIFF QWIK Patient: Rebecca Herrera [id number] (Continued) Specimen: [id number] Received: 09/29/23 (Continued) Pathological Diagnosis (Continued) and much less stromal components -The tumor cells in the more cellular area are positive for GFAP (patchy), SOX10 (diffuse), and S100 (focally strongly positive); and are negative for GATA3 and p40 -Immuno controls are appropriate -The Ki-67 showing focally slightly increased proliferative activity, but overall are most likely <5% (See Note) Note: -The overall finding is 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 The specimen is inked black and sectioned to demonstrate a lobulated pink-henson to white-prieto glistening cut surface. A touch prep is performed. A telephone sales representative section to demonstrate the relationship between a more pink-henson nodule and a prieto glistening nodule is frozen. Entirely submitted in 5 cassettes as follows: A1 - Frozen section remnant A2-A5 - Remainder of specimen Intraoperative Diagnosis A. 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 Reported by 09/29/2023 Specimen: [id number] Received: (more content not included)... Normal [facility] Prothrombin time (PT)Ordered By: Catracho Ferguson on 09-29-2023 PT Coag (PPP) [Time] 12.1 s Normal 9.0-12.9 [facility] Comment on above: A hematocrit value g reater than 55% may lead to inaccurate results in coagulation testing. Patients having hematocrit values >55% require a special collection tube for coagulation studies. Please contact the laboratory at [phone] for redraw instructions. Result Comment: A he matocrit value greater than 55% may lead to inaccurate results in coagulation testing. Patients having hematocrit values >55% require a special collection tube for coagulation studies. Please contact the laboratory at [phone] for redraw instructions. Performed By: #### E SR, CBC, ADDONUAPLUS, HEPATIC, CREAT, MG, CRP #### [facility] [address] Basic metabolic 1998 panelon 09-16-2023 Anion gap [Moles/Vol] 7.6 mmol/L 6.0 - 15.0 [facility] Calcium [Mass/Vol] 8.5 mg/dL Low 8.6 - 10. 3 mg/dL [facility] Chloride [Moles/Vol] 109 mmol/L High 98 - 10 7 mmol/L [facility] CO2 [Moles/Vol] 29.4 mmol/L 21.0 - 31.0 mmol/L [facility] Creatinine (U) [Mass/Vol] 0.64 mg/dL 0.60 - 1.20 mg/[facility] GFR/1.73 sq M.predicted MDRD (S/P/Bld) [Vol rate/Area] mL/min/{1.73_m2} [facility] Glucose [Mass/Vol] 84 mg/dL 70 - 100 mg/dL [facility] Comment on above: Random Glucose Refer ence Range is dependent on time and content of last meal. Glucose of more than 200 mg/dL in a nonstressed, ambulatory subject supports the diagnosis of Diabetes Mellitus. ADA recommended reference range Interpretation and review of laboratory results Abnormal [facility] Potassium [Moles/Vol] 4.0 mmol/L 3.5 - 5.1 mmol/L [facility] Sodium [Moles/Vol] 142 mmol/L 136 - 145 mmol/L [facility] Urea nitrogen [Mass/Vol] 8 mg/dL 7 - 25 mg/dL [facility] Basophils Auto (Bld) [#/Vol] Ordered By: Neto Sheets on 09-16-2023 Basophils (Bld) [#/Vol] 0.0 10*3/uL 0.0-0.2 [facility] Basophils/100 WBC Auto (Bld) Ordered By: Neto Sheets on 09-16-2023 Basophils/100 WBC (Bld) 0.7 % . [facility] CBC W Auto Differential pane l (Bld)on 09-16-2023 Basophils (Bld) [#/Vol] 0.0 10*3/uL 0.0 - 0.2 10*3/uL [facility] Basophils/100 WBC Manual cnt (Syn fld) 0.7 % . [facility] Eosinophils (Bld) [#/Vol] 0.1 10*3/uL 0.0 - 0.45 10*3/uL [facility] Eosinophils/100 WBC Manual cnt (Syn fld) 3.6 % . [facility] Erythrocyte distribution width (RBC) [Ratio] 13.0 % 11.9 - 15.3 % [facility] Hematocrit (Bld) [Volume fraction] 38.6 % 34.0 - 46.4 % [facility] Hemoglobin (Bld) [Mass/Vol] 12.9 g/dL 11.8 - 15.4 g/dL [facility] Lymphocytes (Bld) [#/Vol] 1.0 10*3/uL 1.00 - 4.8 10*3/uL [facility] Lymphocytes/100 WBC Manual cnt (Syn fld) 24.2 % . [facility] MCH (RBC) [Entitic mass] 32.0 pg 24.7 - 34.3 pg [facility] MCHC (RBC) [Mass/Vol] 33.5 g/dL 32.0 - 35.0 g/dL [facility] MCV (RBC) [Entitic vol] 95.6 fL 80 - 100 fL [facility] Monocytes (Bld) [#/Vol] 0.4 10*3/uL 0.0 - 0.8 10*3/uL [facility] Monocytes+Macrophages/ 100 WBC Manual cnt (Syn fld) 10.8 % . [facility] Neutrophils (Bld) [#/Vol] 2.5 10*3/uL 1.8 - 7.7 10*3/uL [facility] Neutrophils/100 WBC Manual cnt (Syn fld) 60.7 % . [facility] NRBC 0.2 /100{WBC} 0 - 0.5 /100{WBC} [facility] Platelet mean volume (Bld) [Entitic vol] 9.6 fL 6.3 - 10.7 fL [facility] Platelets (Bld) [#/Vol] 159 10*3/uL 150 - 450 10*3/uL [facility] RBC LM.HPF (Urine sed) [#/Area] 4.04 /[HPF] 3.60 - 5.00 [facility] WBC (Bld) [#/Vol] 4.1 10*3/uL 3.8 - 11.6 10*3/uL [facility] WBC LM.HPF (Urine sed) [#/Area] 4.1 10*3/uL 3.8 - 11.6 10*3/uL [facility] Calcium [Mass/volume] in Ser um or PlasmaOrdered By: Neto Sheets on 09-16-2023 Calcium [Mass/Vol] 8.5 mg/dL 8.6-10.3 [facility] Carbon dioxide, total [Moles /volume] in Serum or PlasmaOrdered By: Neto Sheets on 09-16-2023 CO2 [Moles/Vol] 29.4 mmol/L 21.0-31.0 [facility] Chloride [Moles/volume] in S maurilio or PlasmaOrdered By: Neto Sheets on 09-16-2023 Chloride [Moles/Vol] 109 mmol/L 98-107 [facility] Creatinine [Mass/volume] in Serum or PlasmaOrdered By: Neto Sheets on 09-16-2023 Creatinine [Mass/Vol] 0.64 mg/dL 0.60-1.20 [facility] Eosinophils Auto (Bld) [#/Vo l]Ordered By: Neto Sheets on 09-16-2023 Eosinophils (Bld) [#/Vol] 0.1 10*3/uL 0.0-0.45 [facility] Eosinophils/100 WBC Auto (Bl d)Ordered By: Neto Sheets on 09-16-2023 Eosinophils/100 WBC (Bld) 3.6 % . [facility] Erythrocyte distribution wid th Auto (RBC) [Ratio]Ordered By: Neto Sheets on 09-16-2023 Erythrocyte distribution width (RBC) [Ratio] 13.0 % 11.9-15.3 [facility] Glucose [Mass/volume] in Ser um or PlasmaOrdered By: Neto Sheets on 09-16-2023 Glucose [Mass/Vol] 84 mg/dL 70-100 [facility] Comment on above: ADA recommended refe rence rangeRandom Glucose Reference Range is dependent on time and content of last meal. Glucose of more than 200 mg/dL in a nonstressed, ambulatory subject supports the diagnosis of Diabetes Mellitus. Hematocrit Auto (Bld) [Volum e fraction]Ordered By: Neto Sheets on 09-16-2023 Hematocrit (Bld) [Volume fraction] 38.6 % 34.0-46.4 [facility] Hemoglobin [Mass/volume] in BloodOrdered By: Neto Sheets on 09-16-2023 Hemoglobin (Bld) [Mass/Vol] 12.9 g/dL 11.8-15.4 [facility] Leukocytes [#/volume] correc zee for nucleated erythrocytes in Blood by Automated counOrdered By: Neto Sheets on 09-16-2023 WBC corrected for nucl RBC Auto (Bld) [#/Vol] 4.1 10*3/uL 3.8-11.6 [facility] Lymphocytes Auto (Bld) [#/Vo l]Ordered By: Neto Sheets on 09-16-2023 Lymphocytes (Bld) [#/Vol] 1.0 10*3/uL 1.00-4.8 [facility] Lymphocytes/100 WBC Auto (Bl d)Ordered By: Neto Sheets on 09-16-2023 Lymphocytes/100 WBC (Bld) 24.2 % . [facility] MCH Auto (RBC) [Entitic mass ]Ordered By: Neto Sheets on 09-16-2023 MCH (RBC) [Entitic mass] 32.0 pg 24.7-34.3 [facility] MCHC Auto (RBC) [Mass/Vol]Or dered By: Neto Sheets on 09-16-2023 MCHC (RBC) [Mass/Vol] 33.5 g/dL 32.0-35.0 [facility] MCV Auto (RBC) [Entitic vol] Ordered By: Neto Sheets on 09-16-2023 MCV (RBC) [Entitic vol] 95.6 fL 80-100 [facility] Monocytes Auto (Bld) [#/Vol] Ordered By: Neto Sheets on 09-16-2023 Monocytes (Bld) [#/Vol] 0.4 10*3/uL 0.0-0.8 [facility] Monocytes/100 WBC Auto (Bld) Ordered By: Neto Sheets on 09-16-2023 Monocytes/100 WBC (Bld) 10.8 % . [facility] Neutrophils Auto (Bld) [#/Vo l]Ordered By: Neto Sheets on 09-16-2023 Neutrophils (Bld) [#/Vol] 2.5 10*3/uL 1.8-7.7 [facility] Neutrophils/100 WBC Auto (Bl d)Ordered By: Neto Sheets on 09-16-2023 Neutrophils/100 WBC (Bld) 60.7 % . [facility] No Panel InformationOrdered By: Neto Sheets on 09-16-2023 Estimated GFR (CKD-EPI) > 60.0 mL/Min [facility] Creatinine Clearance (Chem N/A [facility] Nucleated erythrocytes [Pres ence] in Blood by Automated countOrdered By: Neto Sheets on 09-16-2023 Nucleated RBC Auto Ql (Bld) 0.2 /100{WBC} 0-0.5 [facility] Platelet mean volume Auto (B ld) [Entitic vol]Ordered By: Neto Sheets on 09-16-2023 Platelet mean volume (Bld) [Entitic vol] 9.6 fL 6.3-10.7 [facility] Platelets Auto (Bld) [#/Vol] Ordered By: Neto Sheets on 09-16-2023 Platelets (Bld) [#/Vol] 159 10*3/uL 150-450 [facility] Potassium [Moles/volume] in Serum or PlasmaOrdered By: Neto Sheets on 09-16-2023 Potassium [Moles/Vol] 4.0 mmol/L 3.5-5.1 [facility] RBC Auto (Bld) [#/Vol]Ordere d By: Neto Sheets on 09-16-2023 RBC (Bld) [#/Vol] 4.04 10*6/uL 3.60-5.00 [facility] Serum or plasma anion gap de terminationOrdered By: Neto Sheets on 09-16-2023 Anion gap [Moles/Vol] 7.6 mmol/L 6.0-15.0 [facility] Sodium [Moles/volume] in Ser um or PlasmaOrdered By: Neto Sheets on 09-16-2023 Sodium [Moles/Vol] 142 mmol/L 136-145 [facility] Urea nitrogen [Mass/volume] in Serum or PlasmaOrdered By: Neto Sheets on 09-16-2023 Urea nitrogen [Mass/Vol] 8 mg/dL 7-25 [facility] WBC Auto (Bld) [#/Vol]Ordere d By: Neto Sheets on 09-16-2023 WBC (Bld) [#/Vol] 4.1 10*3/uL 3.8-11.6 [facility] Laboratory - Cytologyon Microscopic observation Cyto stain Nom (Cvx) 2.3 [facility] Comment on above: INR 2.3/ PT 24 No Panel Informationon 09-09 Interpretation and review of laboratory results Normal [facility] Activated partial thrombopla stin time (aPTT) in platelet poor plasma by coagulation aOrdered By: Michael Ramirez on 06-10-2023 aPTT Coag (PPP) [Time] 30.5 s 25.1-36.5 [facility] Comment on above: A hematocrit value g reater than 55% may lead to inaccurate results in coagulation testing. Patients having hematocrit values >55% require a special collection tube for coagulation studies. Please contact the laboratory at [phone] for redraw instructions. Basophils Auto (Bld) [#/Vol] [facility] Basophils (Bld) [#/Vol] 0.0 10*3/uL 0.0-0.2 [facility] Basophils/100 WBC Auto (Bld) Ordered By: ad Asaad on 06-10-2023 Basophils/100 WBC (Bld) 0.4 % . [facility] Eosinophils Auto (Bld) [#/Vo l]Ordered By: [facility] Asaad on 06-10-2023 Eosinophils (Bld) [#/Vol] 0.1 10*3/uL 0.0-0.45 [facility] Eosinophils/100 WBC Auto (Bl d)Ordered By: [facility] Asaad on 06-10-2023 Eosinophils/100 WBC (Bld) 2.4 % . [facility] Erythrocyte distribution wid th Auto (RBC) [Ratio][facility] Erythrocyte distribution width (RBC) [Ratio] 15.9 % 11.9-15.3 [facility] Hematocrit Auto (Bld) [Volum e fraction]Ordered By: [facility] on 06-10-2023 Hematocrit (Bld) [Volume fraction] 38.6 % 34.0-46.4 [facility] Hemoglobin [Mass/volume] in BloodOrdered By: [facility] on 06-10-2023 Hemoglobin (Bld) [Mass/Vol] 12.9 g/dL 11.8-15.4 [facility] INR in Platelet poor plasma by Coagulation assayOrdered By: [facility] on 06-10-2023 INR Coag (PPP) [Relative time] 1.3 {INR} [facility] Comment on above: INR Therapeutic Rang e A) Pre- and Peroperative OAT started two weeks before surgery. NOT HIP SURGERY: 1.5 - 2.5 HIP SURGERY: 2 - 3B) Primary and secondary prevention of venous THROMBOSIS: 2 - 3C) Active venous thrombosis, pulmonary embolismand prevention of recurrent venous thrombosis: 2 - 3D) Prevention of arterial thromboembolismincluding patients with mechanical heart valves: 3 - 4.5 Leukocytes [#/volume] correc zee for nucleated erythrocytes in Blood by Automated counOrdered By: Imad Asaad on 06-10-2023 WBC corrected for nucl RBC Auto (Bld) [#/Vol] 4.7 10*3/uL 3.8-11.6 [facility] Lymphocytes Auto (Bld) [#/Vo l]Ordered By: Imad Asaad on 06-10-2023 Lymphocytes (Bld) [#/Vol] 0.7 10*3/uL 1.00-4.8 [facility] Lymphocytes/100 WBC Auto (Bl d)Ordered By: Imad Asaad on 06-10-2023 Lymphocytes/100 WBC (Bld) 14.7 % . [facility] MCH Auto (RBC) [Entitic mass ]Ordered By: Imad Asaad on 06-10-2023 MCH (RBC) [Entitic mass] 32.0 pg 24.7-34.3 [facility] MCHC Auto (RBC) [Mass/Vol]Or dered By: Imad Asaad on 06-10-2023 MCHC (RBC) [Mass/Vol] 33.5 g/dL 32.0-35.0 [facility] MCV Auto (RBC) [Entitic vol] Ordered By: Imad Asaad on 06-10-2023 MCV (RBC) [Entitic vol] 95.4 fL 80-100 [facility] Monocytes Auto (Bld) [#/Vol] Ordered By: Imad Asaad on 06-10-2023 Monocytes (Bld) [#/Vol] 0.5 10*3/uL 0.0-0.8 [facility] Monocytes/100 WBC Auto (Bld) Ordered By: Imad Asaad on 06-10-2023 Monocytes/100 WBC (Bld) 9.9 % . [facility] Neutrophils Auto (Bld) [#/Vo l]Ordered By: Imad Asaad on 06-10-2023 Neutrophils (Bld) [#/Vol] 3.4 10*3/uL 1.8-7.7 [facility] Neutrophils/100 WBC Auto (Bl d)Ordered By: Imad Asaad on 06-10-2023 Neutrophils/100 WBC (Bld) 72.6 % . [facility] Nucleated erythrocytes [Pres ence] in Blood by Automated countOrdered By: Imhiram Asahiram on 06-10-2023 Nucleated RBC Auto Ql (Bld) 0.1 /100{WBC} 0-0.5 [facility] Platelet mean volume Auto (B ld) [Entitic vol]Ordered By: Imad Asaad on 06-10-2023 Platelet mean volume (Bld) [Entitic vol] 9.8 fL 6.3-10.7 [facility] Platelets Auto (Bld) [#/Vol] Ordered By: Imad Asaad on 06-10-2023 Platelets (Bld) [#/Vol] 152 10*3/uL 150-450 [facility] Prothrombin time (PT)Ordered By: Imad Asaad on 06-10-2023 PT Coag (PPP) [Time] 15.1 s 9.0-12.9 [facility] Comment on above: A hematocrit value g reater than 55% may lead to inaccurate results in coagulation testing. Patients having hematocrit values >55% require a special collection tube for coagulation studies. Please contact the laboratory at [phone] for redraw instructions. RBC Auto (Bld) [#/Vol]Ordere d By: Imad Asaad on 06-10-2023 RBC (Bld) [#/Vol] 4.04 10*6/uL 3.60-5.00 [facility] WBC Auto (Bld) [#/Vol]Ordere d By: Imad Asaad on 06-10-2023 WBC (Bld) [#/Vol] 4.7 10*3/uL 3.8-11.6 [facility] Basophils Auto (Bld) [#/Vol] Ordered By: Laina Morales on 04-10-2023 Basophils (Bld) [#/Vol] 0.0 10*3/uL 0.0-0.2 [facility] Basophils/100 WBC Auto (Bld) Ordered By: Laina Morales on 04-10-2023 Basophils/100 WBC (Bld) 0.5 % . [facility] Eosinophils Auto (Bld) [#/Vo l]Ordered By: Laina Morales on 04-10-2023 Eosinophils (Bld) [#/Vol] 0.0 10*3/uL 0.0-0.45 [facility] Eosinophils/100 WBC Auto (Bl d)Ordered By: Laina Morales on 04-10-2023 Eosinophils/100 WBC (Bld) 0.5 % . [facility] Erythrocyte distribution wid th Auto (RBC) [Ratio]Ordered By: Laina Morales on 04-10-2023 Erythrocyte distribution width (RBC) [Ratio] 14.6 % 11.9-15.3 [facility] Ferritin [Mass/volume] in Se rum or PlasmaOrdered By: Laina Morales on 04-10-2023 Ferritin [Mass/Vol] 6.2 ng/mL 11.0-306.8 [facility] Hematocrit Auto (Bld) [Volum e fraction]Ordered By: Laina Morales on 04-10-2023 Hematocrit (Bld) [Volume fraction] 38.2 % 34.0-46.4 [facility] Hemoglobin [Mass/volume] in BloodOrdered By: Laina Morales on 04-10-2023 Hemoglobin (Bld) [Mass/Vol] 12.6 g/dL 11.8-15.4 [facility] Iron [Mass/volume] in Serum or PlasmaOrdered By: Laina Morales on 04-10-2023 Iron [Mass/Vol] 66 ug/dL 50-212 [facility] Iron binding capacity [Mass/ volume] in Serum or PlasmaOrdered By: Laina Morales on 04-10-2023 Iron binding capacity [Mass/Vol] 494 ug/dL 255-450 [facility] Iron saturation [Mass Fracti on] in Serum or PlasmaOrdered By: Laina Morales on 04-10-2023 Iron saturation [Mass fraction] 13.4 % 20-50 [facility] Leukocytes [#/volume] correc zee for nucleated erythrocytes in Blood by Automated counOrdered By: Laina Morales on 04-10-2023 WBC corrected for nucl RBC Auto (Bld) [#/Vol] 6.6 10*3/uL 3.8-11.6 [facility] Lymphocytes Auto (Bld) [#/Vo l]Ordered By: Laina Morales on 04-10-2023 Lymphocytes (Bld) [#/Vol] 0.9 10*3/uL 1.00-4.8 [facility] Lymphocytes/100 WBC Auto (Bl d)Ordered By: Laina Morales on 04-10-2023 Lymphocytes/100 WBC (Bld) 14.1 % . [facility] MCH Auto (RBC) [Entitic mass ]Ordered By: Laina Morales on 04-10-2023 MCH (RBC) [Entitic mass] 30.4 pg 24.7-34.3 [facility] MCHC Auto (RBC) [Mass/Vol]Or dered By: Laina Morales on 04-10-2023 MCHC (RBC) [Mass/Vol] 32.9 g/dL 32.0-35.0 [facility] MCV Auto (RBC) [Entitic vol] Ordered By: Laina Morales on 04-10-2023 MCV (RBC) [Entitic vol] 92.6 fL 80-100 [facility] Monocytes Auto (Bld) [#/Vol] Ordered By: Laina Morales on 04-10-2023 Monocytes (Bld) [#/Vol] 0.6 10*3/uL 0.0-0.8 [facility] Monocytes/100 WBC Auto (Bld) Ordered By: Laina Morales on 04-10-2023 Monocytes/100 WBC (Bld) 8.7 % . [facility] Neutrophils Auto (Bld) [#/Vo l]Ordered By: Laina Morales on 04-10-2023 Neutrophils (Bld) [#/Vol] 5.0 10*3/uL 1.8-7.7 [facility] Neutrophils/100 WBC Auto (Bl d)Ordered By: Laina Morales on 04-10-2023 Neutrophils/100 WBC (Bld) 76.2 % . [facility] Nucleated erythrocytes [Pres ence] in Blood by Automated countOrdered By: Laina Morales on 04-10-2023 Nucleated RBC Auto Ql (Bld) 0.1 /100{WBC} 0-0.5 [facility] Platelet mean volume Auto (B ld) [Entitic vol]Ordered By: Laina Morales on 04-10-2023 Platelet mean volume (Bld) [Entitic vol] 10.0 fL 6.3-10.7 [facility] Platelets Auto (Bld) [#/Vol] Ordered By: Laina Morales on 04-10-2023 Platelets (Bld) [#/Vol] 183 10*3/uL 150-450 [facility] RBC Auto (Bld) [#/Vol]Ordere d By: Laina Morales on 04-10-2023 RBC (Bld) [#/Vol] 4.13 10*6/uL 3.60-5.00 [facility] Transferrin [Mass/volume] in Serum or PlasmaOrdered By: Laina Morales on 04-10-2023 Transferrin [Mass/Vol] 353 mg/dL 203-362 [facility] WBC Auto (Bld) [#/Vol]Ordere d By: Laina Morales on 04-10-2023 WBC (Bld) [#/Vol] 6.6 10*3/uL 3.8-11.6 [facility] CT Chest w/Contraston 2022 CT Chest w/Contrast CLINICAL INDICATION: Thoracic aortic aneurysm. No chest complaints. COMPARISON: Chest CT 09/10/21 TECHNIQUE: Axial CT scan of the chest was performed following intravenous contrast. Sagittal and coronal reformats were obtained. FINDINGS: The proximal ascending aorta is again borderline aneurysmal at 4 x 4 cm. The remainder of the thoracic aorta is normal in caliber. Lungs: Pulmonary parenchyma is without evidence of consolidation. No nodules or masses demonstrated. No pleural effusion. No pneumothorax. Mediastinum, heart, and hilum: No enlarged lymph nodes. Mediastinal and bilateral hilar calcified granulomas are redemonstrated. Normal heart size and chamber orientation. No pericardial effusion. There are mild coronary and aortic calcifications. Upper Abdomen: Postsurgical changes of the stomach are incompletely seen. 3 mm left renal stone. Bones and soft tissues: Degenerative changes of the spine. No fracture. No soft tissue abnormality. IMPRESSION: Stable 4 cm aneurysm of the ascending aorta. Report reported and signed by Luisito Jade on 09/30/2022 1150 Normal [facility] Specialist Albumin [Mass/volume] in Ser um or PlasmaOrdered By: Tyrese Swanson on 06-29-2022 Albumin [Mass/Vol] 3.2 g/dL 3.2-5.5 [facility] Creatinine and Glomerular fi ltration rate.predicted panel (S/P/Bld)Ordered By: Tyrese Swanson on 06-29-2022 Creatinine [Mass/Vol] 0.65 mg/dL 0.44-1.03 [facility] Estimated glomerular filtrat ion rate (GFR) non- AmericanOrdered By: Tyrese Swanson on 06-29-2022 GFR/1.73 sq M.predicted among non-blacks MDRD (S/P/Bld) [Vol rate/Area] > 60 mL/Min [facility] No Panel InformationOrdered By: Tyrese Swanson on 06-29-2022 25-Hydroxy Vitamin D Total See comment 30-100 [facility] Comment on above: Specimen hemolyzed, redraw requestedVITAMIN D STATUS 25(OH)VITAMIN D RANGE (ng/mL) Deficient <20 Insufficient 20 to <30Sufficient 30 to 100Reference: Rafi MF,Phill NC, Nael GARCÍA, et al. Evaluation,treatment, and prevention of vitamin D deficiency; an Endocrine Society clinical practice guideline. JCEM. 2010; 96(7):1911-30. Estimated GFR () > 60 mL/Min [facility] Comment on above: GFR estimated refere nce range: According to KDOQI guidelines, <60 ml/min/1.73m2 is sufficient to diagnose a patient with chronic kidney disease. Magnesium Level See comment 1.6-2.6 [facility] Comment on above: Specimen hemolyzed, redraw requested Pharmacy Creatinine Clearance (Chem N/A [facility] Phosphate [Mass/volume] in S maurilio or PlasmaOrdered By: Tyrese Swanson on 06-29-2022 Phosphate [Mass/Vol] 4.1 mg/dL 2.5-4.6 [facility] Serum or plasma anion gap de terminationOrdered By: Tyrese Swanson on 06-29-2022 Anion gap [Moles/Vol] TNP [facility] Comment on above: Test not performed Serum or plasma calcium lissa urement (mass/volume)Ordered By: Tyrese Swanson on 06-29-2022 Calcium [Mass/Vol] 8.7 mg/dL 8.2-10.2 [facility] Serum or plasma chloride joshua surement (moles/volume)Ordered By: Tyrese Swanson on 06-29-2022 Chloride [Moles/Vol] 107 mmol/L 95-114 [facility] Serum or plasma glucose lissa urement (mass/volume)Ordered By: Tyrese Swanson on 06-29-2022 Glucose [Mass/Vol] 83 mg/dL 70-100 [facility] Comment on above: ADA recommended refe rence rangeRandom Glucose Reference Range is dependent on time and content of last meal. Glucose of more than 200 mg/dL in a nonstressed, ambulatory subject supports the diagnosis of Diabetes Mellitus. Serum or plasma intact parat hyroid hormone measurement (mass/volume)Ordered By: Tyrese Swanson on 06-29-2022 Parathyrin.intact [Mass/Vol] 269.7 pg/mL 12-88 [facility] Serum or plasma potassium me asurement (moles/volume)Ordered By: Tyrese Swanson on 06-29-2022 Potassium [Moles/Vol] See comment 3.5-5.1 [facility] Comment on above: Specimen hemolyzed, redraw requested Serum or plasma sodium measu rement (moles/volume)Ordered By: Tyrese Swanson on 06-29-2022 Sodium [Moles/Vol] 138 mmol/L 136-146 [facility] Serum or plasma total carbon dioxide measurement (moles/volume)Ordered By: Tyrese Swanson on 06-29-2022 CO2 [Moles/Vol] 26.9 mmol/L 22.0-30.0 [facility] Serum or plasma urea nitroge n measurement (mass/volume)Ordered By: Tyrese Swanson on 06-29-2022 Urea nitrogen [Mass/Vol] 8 mg/dL 9-23 [facility] Basophils Auto (Bld) [#/Vol] Ordered By: Radha Blancas on 04-18-2022 Basophils (Bld) [#/Vol] 0.0 10*3/uL 0.0-0.2 [facility] Basophils/100 WBC Auto (Bld) Ordered By: Radha Blancas on 04-18-2022 Basophils/100 WBC (Bld) 1.0 % . [facility] CT biopsyOrdered By: Radha Anguiano on 04-18-2022 Transferrin [Mass/Vol] 329 mg/dL 180-380 [facility] Eosinophils Auto (Bld) [#/Vo l]Ordered By: Radha Blancas on 04-18-2022 Eosinophils (Bld) [#/Vol] 0.2 10*3/uL 0.0-0.45 [facility] Eosinophils/100 WBC Auto (Bl d)Ordered By: Radha Blancas on 04-18-2022 Eosinophils/100 WBC (Bld) 4.9 % . [facility] Erythrocyte distribution wid th Auto (RBC) [Ratio]Ordered By: Radha Blancas on 04-18-2022 Erythrocyte distribution width (RBC) [Ratio] 14.0 % 11.9-15.3 [facility] Ferritin [Mass/volume] in Se rum or PlasmaOrdered By: Radha Blancas on 04-18-2022 Ferritin [Mass/Vol] 13.0 ng/mL 11-306.8 [facility] Hematocrit Auto (Bld) [Volum e fraction]Ordered By: Radha Blancas on 04-18-2022 Hematocrit (Bld) [Volume fraction] 39.4 % 34.0-46.4 [facility] Hemoglobin [Mass/volume] in BloodOrdered By: Radha Blancas on 04-18-2022 Hemoglobin (Bld) [Mass/Vol] 13.0 g/dL 11.8-15.4 [facility] Iron [Mass/volume] in Serum or PlasmaOrdered By: Radha Blancas on 04-18-2022 Iron [Mass/Vol] 81 ug/dL 40-150 [facility] Iron binding capacity [Mass/ volume] in Serum or PlasmaOrdered By: Radha Blancas on 04-18-2022 Iron binding capacity [Mass/Vol] 461 ug/dL 255-450 [facility] Iron saturation [Mass Fracti on] in Serum or PlasmaOrdered By: Radha Blancas on 04-18-2022 Iron saturation [Mass fraction] 17.6 % 20-50 [facility] Laboratory - Hematology and Cell countsOrdered By: Radha Blancas on 04-18-2022 Nucleated RBC/100 WBC (Bld) [Ratio] 0.1 % 0-0.5 [facility] Leukocytes [#/volume] in Blo od by Automated countOrdered By: Radha Blancas on 04-18-2022 WBC (Bld) [#/Vol] 5.0 10*3/uL 4.5-11.0 [facility] Lymphocytes Auto (Bld) [#/Vo l]Ordered By: Radha Blancas on 04-18-2022 Lymphocytes (Bld) [#/Vol] 0.8 10*3/uL 1.00-4.8 [facility] Lymphocytes/100 WBC Auto (Bl d)Ordered By: Radha Blancas on 04-18-2022 Lymphocytes/100 WBC (Bld) 17.1 % . [facility] MCH Auto (RBC) [Entitic mass ]Ordered By: Radha Blancas on 04-18-2022 MCH (RBC) [Entitic mass] 31.5 pg 24.7-34.3 [facility] MCHC Auto (RBC) [Mass/Vol]Or dered By: Radha Blancas on 04-18-2022 MCHC (RBC) [Mass/Vol] 33.0 g/dL 32.0-35.0 [facility] MCV Auto (RBC) [Entitic vol] Ordered By: Radha Blancas on 04-18-2022 MCV (RBC) [Entitic vol] 95.4 fL 80-100 [facility] Monocytes Auto (Bld) [#/Vol] Ordered By: Radha Blancas on 04-18-2022 Monocytes (Bld) [#/Vol] 0.5 10*3/uL 0.0-0.8 [facility] Monocytes/100 WBC Auto (Bld) Ordered By: Radha Yonny on 04-18-2022 Monocytes/100 WBC (Bld) 11.0 % . [facility] Neutrophils Auto (Bld) [#/Vo l]Ordered By: Radha Yonny on 04-18-2022 Neutrophils (Bld) [#/Vol] 3.3 10*3/uL 1.8-7.7 [facility] Neutrophils/100 WBC Auto (Bl d)Ordered By: Radha Yonny on 04-18-2022 Neutrophils/100 WBC (Bld) 66.0 % . [facility] Platelet mean volume Auto (B ld) [Entitic vol]Ordered By: Radha Yonny on 04-18-2022 Platelet mean volume (Bld) [Entitic vol] 9.9 fL 6.3-10.7 [facility] Platelets Auto (Bld) [#/Vol] Ordered By: Radha Yonny on 04-18-2022 Platelets (Bld) [#/Vol] 184 10*3/uL 150-450 [facility] RBC Auto (Bld) [#/Vol]Ordere d By: Radha Yonny on 04-18-2022 RBC (Bld) [#/Vol] 4.13 10*6/uL 3.60-5.00 [facility] Laboratory - Hematology and Cell countson 04-18-2020 WBC (Bld) [#/Vol] 4.1 10*3/uL Low 4.5-11.0 [facility] C-REACTIVE PROTEINon 020 CRP [Mass/Vol] 0.4 mg/L Normal <8.0 [facility] Comment on above: Performed By: #### 1 2441, 645, 0156, 1958, 113, 8224 #### [facility]-[address], [address] [place] [id number] [employer] Operator: Paul Dyer MD CBC (INCLUDES DIFF/PLT)on Basophils (Bld) [#/Vol] 0.052 10*3/uL Normal 0-200 [facility] Comment on above: Performed By: #### 1 0231, 809, 6399, 8563, 353, 4420 #### [facility] [address], [address] [place] [address] [employer] Operator: Paul Dyer MD Basophils/100 WBC (Bld) 1.4 % Normal [facility] Comment on above: Performed By: #### 1 0231, 809, 6399, 8563, 353, 4420 #### [facility] [address], [address] [place] [address] [employer] Operator: Paul Dyer MD Eosinophils (Bld) [#/Vol] 0.222 10*3/uL Normal 15-500 [facility] Comment on above: Performed By: #### 1 0231, 809, 6399, 8563, 353, 4420 #### [facility] [address] , [address] [place] [address] [employer] Operator: Paul Dyer MD Eosinophils/100 WBC (Bld) 6.0 % Normal [facility] Comment on above: Performed By: #### 1 0231, 809, 6399, 8563, 353, 4420 #### [facility] [address] , [address] [place] [address] [employer] Operator: Paul Dyer MD Erythrocyte distribution width (RBC) [Ratio] 12.7 % Normal 11.0-15.0 [facility] Comment on above: Performed By: #### 1 0231, 809, 6399, 8563, 353, 4420 #### [facility] [address] , [address] [place] [address] [employer] Operator: Paul Dyer MD Hematocrit (Bld) [Volume fraction] 40.6 % Normal 35.0-45.0 [facility] Comment on above: Performed By: #### 1 0231, 809, 6399, 8563, 353, 4420 #### [facility] [address] , [address] [place] [address] [employer] Operator: Paul Dyer MD Hemoglobin (Bld) [Mass/Vol] 13.5 g/dL Normal 11.7-15.5 [facility] Comment on above: Performed By: #### 1 0231, 809, 6399, 8563, 353, 4420 #### [facility] [address], [address] [place] [address] [employer] Operator: Paul Dyer MD Lymphocytes (Bld) [#/Vol] 0.725 10*3/uL Low 850-3900 [facility] Comment on above: Performed By: #### 1 0231, 809, 6399, 8563, 353, 4420 #### [facility] [address], [address] [place] [address] [employer] Operator: Paul Dyer MD Lymphocytes/100 WBC (Bld) 19.6 % Normal [facility] Comment on above: Performed By: #### 1 0231, 809, 6399, 8563, 353, 4420 #### [facility] [address], [address] [place] [address] [employer] Operator: Paul Dyer MD MCH (RBC) [Entitic mass] 31.3 pg Normal 27.0-33.0 [facility] Comment on above: Performed By: #### 1 0231, 809, 6399, 8563, 353, 4420 #### [facility] [address], [address] [place] [address] [employer] Operator: Paul Dyer MD MCHC (RBC) [Mass/Vol] 33.3 g/dL Normal 32.0-36.[address] [facility] Comment on above: Performed By: #### 1 0231, 809, 6399, 8563, 353, 4420 #### [facility] [address], [address] [place] [address] [employer] Operator: Paul Dyer MD MCV (RBC) [Entitic vol] 94.0 fL Normal 80.0-100.0 [facility] Comment on above: Performed By: #### 1 0231, 809, 6399, 8563, 353, 4420 #### [facility] [address], [address] [place], [place] [id number] [employer] Operator: Paul Dyer MD Monocytes (Bld) [#/Vol] 0.433 10*3/uL Normal 200-950 [facility] Comment on above: Performed By: #### 1 0231, 809, 6399, 8563, 353, 4420 #### [facility] [address], [address] [place] [address] [employer] Operator: Paul Dyer MD Monocytes/100 WBC (Bld) 11.7 % Normal [facility] Comment on above: Performed By: #### 1 0231, 809, 6399, 8563, 353, 4420 #### [facility] [address], [address] [place] [address] [employer] Operator: Paul Dyer MD Neutrophils (Bld) [#/Vol] 2.268 10*3/uL Normal 6920-6684 [facility] Comment on above: Performed By: #### 1 0231, 809, 6399, 8563, 353, 4420 #### [facility] [address], [address] [place] [address] [employer] Operator: Paul Dyer MD Neutrophils/100 WBC (Bld) 61.3 % Normal [facility] Comment on above: Performed By: #### 1 0231, 809, 6399, 8563, 353, 4420 #### [facility] [address], [address] [place] [address] [employer] Operator: Paul Dyer MD Platelet mean volume (Bld) [Entitic vol] 11.3 fL Normal 7.5-12.5 [facility] Comment on above: Performed By: #### 1 0231, 809, 6399, 8563, 353, 4420 #### [facility] [address], [address] [place] [address] [employer] Operator: Paul Dyer MD Platelets (Bld) [#/Vol] 194 10*3/uL Normal 140-400 [facility] Comment on above: Performed By: #### 1 0231, 809, 6399, 8563, 353, 4420 #### [facility] [address], [address] [place] [address] [employer] Operator: Paul Dyer MD RBC (Bld) [#/Vol] 4.32 10*6/uL Normal 3.80-5.10 [facility] Comment on above: Performed By: #### 1 0231, 809, 6399, 8563, 353, 4420 #### [facility] [address], [address] [place] [address] [employer] Operator: Paul Dyer MD WBC (Bld) [#/Vol] 3.7 10*3/uL Low 3.8-10.8 [facility] Comment on above: Performed By: #### 1 0231, 809, 6399, 8563, 353, 4420 #### [facility] [address], [address] [place] [address] [employer] Operator: Paul Dyer MD COMPLEMENT COMPONENT C3Con 0 12-15-2019 COMPLEMENT COMPONENT C3C 118 mg/dL Normal 83-193 [facility] Comment on above: Performed By: #### 1 0231, 809, 6399, 8563, 353, 4420 #### [facility] [address], [address] [place] [address] [employer] Operator: Paul Dyer MD COMPLEMENT COMPONENT C4Con 0 12-15-2019 COMPLEMENT COMPONENT C4C 21 mg/dL Normal 15-57 [facility] Comment on above: Performed By: #### 1 0231, 809, 6399, 8563, 353, 4420 #### [facility] [address], [address] [place] [address] [employer] Operator: Paul Dyer MD COMPREHENSIVE METABOLIC PANE [facility] 12-15-2019 Albumin [Mass/Vol] 3.9 g/dL Normal 3.6-5.1 [facility] Comment on above: Order Comment: FASTI NG:NO FASTING: NO Performed By: #### 1 0231, 809, 6399, 8563, 353, 4420 #### [facility] [address], [address] [place] [address] [employer] Operator: Paul Dyer MD Albumin/Globulin [Mass ratio] 1.6 (calc) Normal 1.0-2.5 [facility] Comment on above: Order Comment: FASTI NG:NO FASTING: NO Performed By: #### 1 0231, 809, 6399, 8563, 353, 4420 #### [facility]-[address], [address] [place] [address] [employer] Operator: Paul Dyer MD ALP [Catalytic activity/Vol] 126 U/L Normal 37-153 [facility] Comment on above: Order Comment: FASTI NG:NO FASTING: NO Performed By: #### 1 0231, 809, 6399, 8563, 353, 4420 #### [facility]-[address], [address] [place] [address] [employer] Operator: Paul Dyer MD ALT [Catalytic activity/Vol] 56 U/L High 6-29 [facility] Comment on above: Order Comment: FASTI NG:NO FASTING: NO Performed By: #### 1 0231, 809, 6399, 8563, 353, 4420 #### [facility]-[address], [address] [place] [address] [employer] Operator: Paul Dyer MD AST [Catalytic activity/Vol] 43 U/L High 10-35 [facility] Comment on above: Order Comment: FASTI NG:NO FASTING: NO Performed By: #### 1 0231, 809, 6399, 8563, 353, 4420 #### [facility]-[address], [address] [place] [address] [employer] Operator: Paul Dyer MD Bilirubin [Mass/Vol] 0.5 mg/dL Normal 0.2-1.2 [facility] Comment on above: Order Comment: FASTI NG:NO FASTING: NO Performed By: #### 1 0231, 809, 6399, 8563, 353, 4420 #### [facility]-[address], [address] [place] [address] [employer] Operator: Paul Dyer MD Calcium [Mass/Vol] 8.8 mg/dL Normal 8.6-10.4 [facility] Comment on above: Order Comment: FASTI NG:NO FASTING: NO Performed By: #### 1 0231, 809, 6399, 8563, 353, 4420 #### [facility] [address] , [address] [place] [address] [employer] Operator: Paul Dyer MD Chloride [Moles/Vol] 106 mmol/L Normal 98-110 [facility] Comment on above: Order Comment: FASTI NG:NO FASTING: NO Performed By: #### 1 0231, 809, 6399, 8563, 353, 4420 #### [facility] [address] , [address] [place] [address] [employer] Operator: Paul Dyer MD CO2 [Moles/Vol] 27 mmol/L Normal 20-32 [facility] Comment on above: Order Comment: FASTI NG:NO FASTING: NO Performed By: #### 1 0231, 809, 6399, 8563, 353, 4420 #### [facility]-[address], [address] [place] [address] [employer] Operator: Paul Dyer MD Creatinine [Mass/Vol] 0.61 mg/dL Normal 0.50-0.99 [facility] Comment on above: Order Comment: FASTI NG:NO FASTING: NO Result Comment: For patients >49 years of age, the reference limit for Creatinine is approximately 13% higher for people identified as -Gu[place]ian. Performed By: #### 1 0231, 809, 6399, 8563, 353, 4420 #### [facility]-[address], [address] [place] [address] [employer] Operator: Paul Dyer MD eGFR NON-AFR. [place] 94 mL/min/1.73m2 Normal > OR = 60 [facility] Comment on above: Order Comment: FASTI NG:NO FASTING: NO Performed By: #### 1 0231, 809, 6399, 8563, 353, 4420 #### [facility] [address] , [address] [place] [address] [employer] Operator: Paul Dyer MD GFR/1.73 sq M predicted among blacks MDRD (S/P/Bld) [Vol rate/Area] 109 mL/min/{1.73_m2} Normal > OR = 60 [facility] Comment on above: Order Comment: FASTI NG:NO FASTING: NO Performed By: #### 1 0231, 809, 6399, 8563, 353, 4420 #### [facility]-[address], [address] [place] [address] [employer] Operator: Paul Dyer MD Globulin (S) [Mass/Vol] 2.4 g/dL (calc) Normal 1.9-3.7 [facility] Comment on above: Order Comment: FASTI NG:NO FASTING: NO Performed By: #### 1 0231, 809, 6399, 8563, 353, 4420 #### [facility]-[address], [address] [place] [address] [employer] Operator: Paul Dyer MD Glucose [Mass/Vol] 78 mg/dL Normal 65-139 [facility] Comment on above: Order Comment: FASTI NG:NO FASTING: NO Result Comment: Non-fasting reference interval Performed By: #### 1 0231, 809, 6399, 8563, 353, 4420 #### [facility]-[address], [address] [place] [address] [employer] Operator: Paul Dyer MD Potassium [Moles/Vol] 4.0 mmol/L Normal 3.5-5.3 [facility] Comment on above: Order Comment: FASTI NG:NO FASTING: NO Performed By: #### 1 0231, 809, 6399, 8563, 353, 4420 #### [facility]-[address], [address] [place] [address] [employer] Operator: Paul Dyer MD Protein [Mass/Vol] 6.3 g/dL Normal 6.1-8.1 [facility] Comment on above: Order Comment: FASTI NG:NO FASTING: NO Performed By: #### 1 0231, 809, 6399, 8563, 353, 4420 #### [facility]-[address], [address] [place] [address] [employer] Operator: Paul Dyer MD Sodium [Moles/Vol] 142 mmol/L Normal 135-146 [facility] Comment on above: Order Comment: FASTI NG:NO FASTING: NO Performed By: #### 1 0231, 809, 6399, 8563, 353, 4420 #### [facility]-[address], [address] [place] [address] [employer] Operator: Paul Dyer MD Urea nitrogen [Mass/Vol] 10 mg/dL Normal 7-25 [facility] Comment on above: Order Comment: FASTI NG:NO FASTING: NO Performed By: #### 1 0231, 809, 6399, 8563, 353, 4420 #### [facility]-[address], [address] [place] [address] [employer] Operator: Paul Dyer MD Urea nitrogen/Creatinine [Mass ratio] NOT APPLICABLE Normal 6-22 [facility] Comment on above: Order Comment: FASTI NG:NO FASTING: NO Performed By: #### 1 0231, 809, 6399, 8563, 353, 4420 #### [facility]-[address], [address] [place] [address] [employer] Operator: Paul Dyer MD SED RATE BY MODIFIED WESTERG RENon 12-15-2019 SED RATE BY MODIFIED WESTERGREN 6 mm/h Normal < OR = 30 [facility] Comment on above: Performed By: #### 1 0231, 809, 6399, 8563, 353, 4420 #### [facility]-[address], [address] [place] [address] [employer] Operator: Paul Dyer MD URINALYSIS MICROSCOPICon Bacteria LM.HPF (Urine sed) [#/Area] NONE SEEN Normal NONE SEEN [facility] Comment on above: Performed By: #### 1 0231, 809, 6399, 8563, 353, 4420 #### [facility]-[address], [address] [place] [address] [employer] Operator: Paul Dyer MD Epithelial cells.squamous LM.HPF (Urine sed) [#/Area] NONE SEEN Normal < OR = 5 [facility] Comment on above: Performed By: #### 1 0231, 809, 6399, 8563, 353, 4420 #### [facility] [address], [address] [employer] Operator: Paul Dyer MD HYALINE CAST NONE SEEN Normal NONE SEEN [facility] Comment on above: Performed By: #### 1 0231, 809, 6399, 8563, 353, 4420 #### [facility] [address], [address] [place] [address] [employer] Operator: Paul Dyer MD RBC (U) [#/Vol] NONE SEEN Normal < OR = 2 [facility] Comment on above: Performed By: #### 1 0231, 809, 6399, 8563, 353, 4420 #### [facility] [address], [address] [place] [address] [employer] Operator: Paul Dyer MD WBC (Bld) [#/Vol] NONE SEEN Normal < OR = 5 [facility] Comment on above: Performed By: #### 1 0231, 809, 6399, 8563, 353, 4420 #### [facility] [address], [address] [place], [place] [id number] [employer] Operator: Paul Dyer MD Vital Signs Date Time Vital Sign Value Performing Clinician Facility 09-30-2024 15:03-0500 Body mass index (BMI) [Ratio] 27.02 kg/m2 Radha Mckeon MD Work Phone: [facility] 09-30-2024 15:03-0500 Body temperature 93.4 [degF] Radha Mckeon MD Work Phone: [facility] 09-30-2024 15:03-0500 Body weight 71.4 kg Radha Mckeon MD Work Phone: [facility] 09-30-2024 15:03-0500 Diastolic blood pressure 78 mm[Hg] Radha Mckeon MD Work Phone: [facility] 09-30-2024 15:03-0500 Heart rate 54 /min Radha Mckeon MD Work Phone: [facility] 09-30-2024 15:03-0500 SaO2% (BldA) [Mass fraction] 96 % Radha Mckeon MD Work Phone: [facility] 09-30-2024 15:03-0500 Systolic blood pressure 128 mm[Hg] Radha Mckeon MD Work Phone: [facility] 09-27-2024 11:45-0500 Body height 162.6 cm Tyrese Swanson MD Work Phone: [facility] 09-27-2024 11:45-0500 Body mass index (BMI) [Ratio] 27.29 kg/m2 Tyrese Swanson MD Work Phone: [facility] 09-27-2024 11:45-0500 Body weight 72.12 kg Tyrese Swanson MD Work Phone: [facility] 09-27-2024 11:45-0500 Diastolic blood pressure 64 mm[Hg] Tyrese Swanson MD Work Phone: [facility] 09-27-2024 11:45-0500 Heart rate 49 /min Tyrese Swanson MD Work Phone: [facility] 09-27-2024 11:45-0500 Respiratory rate 16 /min Tyrese Swanson MD Work Phone: [facility] 09-27-2024 11:45-0500 SaO2% (BldA) [Mass fraction] 97 % Tyrese Swanson MD Work Phone: [facility] 09-27-2024 11:45-0500 Systolic blood pressure 110 mm[Hg] Tyrese Swanson MD Work Phone: [facility] 09-14-2024 13:36-0500 Body height 162.6 cm Gely Snow MD Work Phone: [facility] 09-14-2024 13:36-0500 Body mass index (BMI) [Ratio] 26.78 kg/m2 Gely Snow MD Work Phone: [facility] 09-14-2024 13:36-0500 Body weight 70.76 kg Gely Snow MD Work Phone: [facility] 09-14-2024 13:36-0500 Diastolic blood pressure 72 mm[Hg] Gely Snow MD Work Phone: [facility] 09-14-2024 13:36-0500 Heart rate 56 /min Gely Snow MD Work Phone: [facility] 09-14-2024 13:36-0500 Systolic blood pressure 130 mm[Hg] Gely Snow MD Work Phone: [facility] 08-03-2024 12:02-0500 Body height 162.56 cm [facility] 08-03-2024 12:02-0500 Body mass index (BMI) [Ratio] 26.4 kg/m2 [facility] 08-03-2024 12:02-0500 Body temperature 98.7 [degF] [facility] 08-03-2024 12:02-0500 Body weight 69.85 kg [facility] 08-03-2024 12:02-0500 Diastolic blood pressure 73 mm[Hg] [facility] 08-03-2024 12:02-0500 Heart rate 68 /min [facility] 08-03-2024 12:02-0500 Respiratory rate 16 /min [facility] 08-03-2024 12:02-0500 SaO2% (BldA) [Mass fraction] 95 % [facility] [facility] 08-03-2024 12:02-0500 Systolic blood pressure 133 mm[Hg] [facility] 05-10-2024 14:23-0400 Body mass index (BMI) [Ratio] 26.29 kg/m2 Radha Mckeon MD Work Phone: [facility] 05-10-2024 14:23-0400 Body temperature 97.39 [degF] Radha Mckeon MD Work Phone: [facility] 05-10-2024 14:23-0400 Body weight 71.67 kg Radha Mckeon MD Work Phone: [facility] 05-10-2024 14:23-0400 Diastolic blood pressure 70 mm[Hg] Radha Mckeon MD Work Phone: [facility] 05-10-2024 14:23-0400 Systolic blood pressure 120 mm[Hg] Radha Mckeon MD Work Phone: [facility] 04-23-2024 09:50-0400 Body height 162.56 cm MD Radha Mckeon Work Phone: [facility] 04-23-2024 09:50-0400 Body mass index (BMI) [Ratio] 27.3 kg/m2 MD Radha Mckeon Work Phone: [facility] 04-23-2024 09:50-0400 Body temperature 97.9 [degF] MD Radha Mckeon Work Phone: [facility] 04-23-2024 09:50-0400 Body weight 72.12 kg MD Radha Mckeon Work Phone: [facility] 04-23-2024 09:50-0400 Diastolic blood pressure 69 mm[Hg] MD Radha Mckeon Work Phone: [facility] 04-23-2024 09:50-0400 Heart rate 51 /min MD Radha Mckeon Work Phone: [facility] 04-23-2024 09:50-0400 Respiratory rate 16 /min MD Radha Mckeon Work Phone: [facility] 04-23-2024 09:50-0400 SaO2% (BldA) [Mass fraction] 100 % MD Radha Mckeon Work Phone: [facility] 04-23-2024 09:50-0400 Systolic blood pressure 136 mm[Hg] MD Radha Mckeon Work Phone: [facility] 02-27-2024 09:16-0400 Body height 162.56 cm MD Radha Mckeon Work Phone: [facility] 02-27-2024 09:16-0400 Body mass index (BMI) [Ratio] 27.4 kg/m2 MD Radha Mckeon Work Phone: [facility] 02-27-2024 09:16-0400 Body weight 72.57 kg MD Radha Mckeon Work Phone: [facility] 02-12-2024 14:27-0400 Diastolic blood pressure 62 mm[Hg] Gely Snow MD Work Phone: [facility] 02-12-2024 14:27-0400 Systolic blood pressure 112 mm[Hg] Gely Snow MD Work Phone: [facility] 02-12-2024 14:26-0400 Body height 162.6 cm Gely Snow MD Work Phone: [facility] 02-12-2024 14:26-0400 Body mass index (BMI) [Ratio] 27.46 kg/m2 Gely Snow MD Work Phone: [facility] 02-12-2024 14:26-0400 Body weight 72.58 kg Gely Snow MD Work Phone: [facility] 02-12-2024 14:26-0400 Heart rate 55 /min Gely Snow MD Work Phone: [facility] 12-10-2023 14:06-0400 Blood Pressure Location Jasper ALMONTE [facility] 12-10-2023 14:06-0400 Body temperature 97.88 [degF] Jasper ALMONTE [facility] 12-10-2023 14:06-0400 Diastolic blood pressure 68 mm[Hg] Jasper ALMONTE [facility] 12-10-2023 14:06-0400 Heart rate 59 /min Jasper ALMONTE [facility] 12-10-2023 14:06-0400 Respiratory rate 16 /min Jasper ALMONTE [facility] 12-10-2023 14:06-0400 Systolic blood pressure 132 mm[Hg] Jasper ALMONTE [facility] 12-02-2023 01:10-0400 Diastolic blood pressure 60 mm[Hg] MD Radha Mckeon Work Phone: [facility] 12-02-2023 01:10-0400 Heart rate 50 /min MD Radha Mckeon Work Phone: [facility] 12-02-2023 01:10-0400 Respiratory rate 16 /min MD Radha Mckeon Work Phone: [facility] 12-02-2023 01:10-0400 SaO2% (BldA) [Mass fraction] 98 % MD Radha Mckeon Work Phone: [facility] 12-02-2023 01:10-0400 Systolic blood pressure 129 mm[Hg] MD Radha Mckeon Work Phone: [facility] 12-01-2023 20:08-0400 Body height 162.56 cm MD Radha Mckeon Work Phone: [facility] 12-01-2023 20:08-0400 Body temperature 97.8 [degF] MD Radha Mckeon Work Phone: [facility] 12-01-2023 20:08-0400 Body weight 77 kg MD Radha Mckeon Work Phone: [facility] 11-29-2023 01:55-0400 Diastolic blood pressure 66 mm[Hg] MD Radha Mckeon Work Phone: [facility] 11-29-2023 01:55-0400 Heart rate 51 /min MD Radha Mckeon Work Phone: [facility] 11-29-2023 01:55-0400 Respiratory rate 18 /min MD Radha Mckeon Work Phone: [facility] 11-29-2023 01:55-0400 SaO2% (BldA) [Mass fraction] 97 % MD Radha Mckeon Work Phone: [facility] 11-29-2023 01:55-0400 Systolic blood pressure 145 mm[Hg] MD Radha Mckeon Work Phone: [facility] 11-28-2023 23:27-0400 Body height 162.56 cm MD Radha Mckeon Work Phone: [facility] 11-28-2023 23:27-0400 Body temperature 98.8 [degF] MD Radha Mckeon Work Phone: [facility] 11-28-2023 23:27-0400 Body weight 77.11 kg MD Radha Mckeon Work Phone: [facility] 10-24-2023 14:14-0400 Body temperature 98.3 [degF] MD Radha Mckeon Work Phone: [facility] 10-24-2023 14:14-0400 Body weight 77.01 kg MD Radha Mckeon Work Phone: [facility] 10-24-2023 14:14-0400 Diastolic blood pressure 71 mm[Hg] MD Radha Mckeon Work Phone: [facility] 10-24-2023 14:14-0400 Heart rate 88 /min MD Radha Mckeon Work Phone: [facility] 10-24-2023 14:14-0400 Respiratory rate 18 /min MD Radha Mckeon Work Phone: [facility] 10-24-2023 14:14-0400 SaO2% (BldA) [Mass fraction] 98 % MD Radha Mckeon Work Phone: [facility] 10-24-2023 14:14-0400 Systolic blood pressure 116 mm[Hg] MD Radha Mckeon Work Phone: [facility] 09-29-2023 16:00-0500 Diastolic blood pressure 81 mm[Hg] MD Radha Mckeon Work Phone: [facility] 09-29-2023 16:00-0500 Heart rate 56 /min MD Radha Mckeon Work Phone: [facility] 09-29-2023 16:00-0500 Respiratory rate 16 /min MD Radha Mckeon Work Phone: [facility] 09-29-2023 16:00-0500 SaO2% (BldA) [Mass fraction] 96 % MD Radha Mckeon Work Phone: [facility] 09-29-2023 16:00-0500 Systolic blood pressure 120 mm[Hg] MD Radha Mckeon Work Phone: [facility] 09-29-2023 15:05-0500 Body temperature 98 [degF] MD Radha Mckeon Work Phone: [facility] 09-29-2023 14:40-0500 Inhaled oxygen flow rate 8 L/min MD Radha Mckeon Work Phone: [facility] 09-29-2023 13:13-0500 Body mass index (BMI) [Ratio] 29.1 kg/m2 MD Radha Mckeon Work Phone: [facility] 09-29-2023 12:47-0500 Body height 162.56 cm MD Radha Mckeon Work Phone: [facility] 09-29-2023 12:47-0500 Body weight 77 kg MD Radha Mckeon Work Phone: [facility] 09-09-2023 13:55-0500 Body height 162.6 cm Radha Mckeon MD Work Phone: [facility] 09-09-2023 13:55-0500 Body mass index (BMI) [Ratio] 29.18 kg/m2 Radha Mckeon MD Work Phone: [facility] 09-09-2023 13:55-0500 Body weight 77.11 kg Radha Mckeon MD Work Phone: [facility] 09-09-2023 13:55-0500 Diastolic blood pressure 64 mm[Hg] Radha Mckeon MD Work Phone: [facility] 09-09-2023 13:55-0500 Heart rate 52 /min Radha Mckeon MD Work Phone: [facility] 09-09-2023 13:55-0500 Respiratory rate 16 /min Radha Mckeon MD Work Phone: [facility] 09-09-2023 13:55-0500 Systolic blood pressure 130 mm[Hg] Radha Mckeon MD Work Phone: [facility] 06-10-2023 12:30-0500 Diastolic blood pressure 69 mm[Hg] MD Radha Mckeon Work Phone: [facility] 06-10-2023 12:30-0500 Heart rate 46 /min MD Radha Mkceon Work Phone: [facility] 06-10-2023 12:30-0500 Respiratory rate 18 /min MD Radha Mckeon Work Phone: [facility] 06-10-2023 12:30-0500 SaO2% (BldA) [Mass fraction] 98 % MD Radha Mckeon Work Phone: [facility] 06-10-2023 12:30-0500 Systolic blood pressure 127 mm[Hg] MD Radha Mckeon Work Phone: [facility] 06-10-2023 10:27-0500 Body height 162.56 cm MD Radha Mckeon Work Phone: [facility] 06-10-2023 10:27-0500 Body temperature 98.1 [degF] MD Radha Mckeon Work Phone: [facility] 06-10-2023 10:27-0500 Body weight 75.29 kg MD Radha Mckeon Work Phone: [facility] 05-12-2023 11:22-0400 Body temperature 98.1 [degF] MD Radha Mckeon Work Phone: [facility] 05-12-2023 11:22-0400 Diastolic blood pressure 59 mm[Hg] MD Radha Mckeon Work Phone: [facility] 05-12-2023 11:22-0400 Heart rate 48 /min MD Radha Mckeon Work Phone: [facility] 05-12-2023 11:22-0400 Respiratory rate 16 /min MD Radha Mckeon Work Phone: [facility] 05-12-2023 11:22-0400 SaO2% (BldA) [Mass fraction] 98 % MD Radha Mckeon Work Phone: [facility] 05-12-2023 11:22-0400 Systolic blood pressure 115 mm[Hg] MD Radha Mckeon Work Phone: [facility] 04-22-2023 08:55-0400 Body temperature 97.5 [degF] MD Radha Mckeon Work Phone: [facility] 04-22-2023 08:55-0400 Body weight 77.15 kg MD Radha Mckeon Work Phone: [facility] 04-22-2023 08:55-0400 Diastolic blood pressure 67 mm[Hg] MD Radha Mckeon Work Phone: [facility] 04-22-2023 08:55-0400 Heart rate 47 /min MD Radha Mckeon Work Phone: [facility] 04-22-2023 08:55-0400 Respiratory rate 20 /min MD Radha Mckeon Work Phone: [facility] 04-22-2023 08:55-0400 SaO2% (BldA) [Mass fraction] 99 % MD Radha Mckeon Work Phone: [facility] 04-22-2023 08:55-0400 Systolic blood pressure 129 mm[Hg] MD Radha Mckeon Work Phone: [facility] 04-25-2022 12:57-0400 Body temperature 98 [degF] MD Radha Mckeon Work Phone: [facility] 04-25-2022 12:57-0400 Body weight 75.84 kg MD Radha Mckeon Work Phone: [facility] 04-25-2022 12:57-0400 Diastolic blood pressure 70 mm[Hg] MD Radha Mckeon Work Phone: [facility] 04-25-2022 12:57-0400 Heart rate 50 /min MD Radha Mckeon Work Phone: [facility] 04-25-2022 12:57-0400 Respiratory rate 20 /min MD Radha Mckeon Work Phone: [facility] 04-25-2022 12:57-0400 SaO2% (BldA) [Mass fraction] 99 % MD Radha Mckeon Work Phone: [facility] 04-25-2022 12:57-0400 Systolic blood pressure 123 mm[Hg] MD Radha Mckeon Work Phone: [facility] 10-22-2021 11:00-0400 Body height 162.56 cm Venkat Miller Other [employer] Other 10-22-2021 11:00-0400 Body mass index (BMI) [Ratio] 28.32 kg/m2 Venkat Miller Other [employer] Other 10-22-2021 11:00-0400 Body weight 74.84 kg Venkat Miller Other [employer] Other 10-05-2021 18:50-0500 Body height 162.56 cm Dipti Garvin Other [employer] Other 10-05-2021 18:50-0500 Body mass index (BMI) [Ratio] 28.66 kg/m2 Dipti Garvin Other [employer] Other 10-05-2021 18:50-0500 Body temperature 96.9 [degF] Dipti Garvin Other [employer] Other 10-05-2021 18:50-0500 Body weight 75.75 kg Dipti Agrvin Other [employer] Other 10-05-2021 18:50-0500 Diastolic blood pressure 76 mm[Hg] Dipti Garvin Other [employer] Other 10-05-2021 18:50-0500 Respiratory rate 18 /min Dipti Garvin Other [employer] Other 10-05-2021 18:50-0500 SaO2% (BldA) [Mass fraction] 99 % Dipti Garvin Other [employer] Other 10-05-2021 18:50-0500 Systolic blood pressure 142 mm[Hg] Dipti Garvin Other [employer] Other 06-17-2021 12:10-0500 Body height 162.56 cm Chiquita Gerber Other [employer] Other 06-17-2021 12:10-0500 Body mass index (BMI) [Ratio] 29.11 kg/m2 Chiquita Gerber Other [employer] Other 06-17-2021 12:10-0500 Body temperature 96.6 [degF] Chiquita Gerber Other [employer] Other 06-17-2021 12:10-0500 Body weight 76.93 kg Chiquita Gerber Other [employer] Other 06-17-2021 12:10-0500 Diastolic blood pressure 56 mm[Hg] Chiquita Gerber Other [employer] Other 06-17-2021 12:10-0500 Respiratory rate 18 /min Chiquita Gerber Other [employer] Other 06-17-2021 12:10-0500 SaO2% (BldA) [Mass fraction] 97 % Chiquita Gerber Other [employer] Other 06-17-2021 12:10-0500 Systolic blood pressure 128 mm[Hg] Chiquita Gerber Other [employer] Other 04-25-2020 09:11-0400 Body height 162.56 cm MD Radha Mckeon Work Phone: [facility] Encounters Encounter Date Encounter Type Care Provider Facility Start: 10-04-2024 ambulatory LANDY CRUZ Facility:[facility] [place] Start: 09-30-2024 End: 09-30-2024 Patient encounter procedure Radha Mckeon MD Work Phone: [facility] Comment on above: Routine general medi deepali examination at a health care facility (Primary Dx); 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; Adrenal insufficiency (CMS/HCC); Age-related osteoporosis without current pathological fracture (CMS/HCC); Autoimmune disease (CMS/HCC); Factor 5 Leiden mutation, heterozygous (CMS/HCC); Major depressive disorder, single episode, moderate (HCC) (CMS/HCC); Mild persistent asthma without complication (CMS/HCC); Obstructive sleep apnea syndrome; PMR (polymyalgia rheumatica) (CMS/HCC); Postoperative malabsorption (CMS/HCC); Secondary hyperparathyroidism (CMS/HCC); Ascending aortic aneurysm, unspecified whether ruptured ([facility]/HCC); Moderate episode of recurrent major depressive disorder ([facility]); History of deep venous thrombosis (DVT) of distal vein of right lower extremity; Mediastinal lymphadenopathy; Primary osteoarthritis of both knees; Postmenopausal; Aortic root dilatation ([facility]/HCC); Osteoporosis, unspecified osteoporosis type, unspecified pathological fracture presence ([facility]); Nonrheumatic aortic valve stenosis Start: 09-30-2024 End: 09-30-2024 Patient encounter status Radha Mckeon MD Work Phone: [facility] Work Phone: Start: 09-30-2024 End: 09-30-2024 Bamboo flowsheet Radha Mckeon MD Work Phone: [facility] Start: 09-30-2024 End: 09-30-2024 Bamboo flowsheet Radha Mckeon MD Work Phone: [facility] Start: 09-27-2024 End: 09-27-2024 Bamboo flowsheet Tyrese Swanson MD Work Phone: [facility] Start: 09-27-2024 End: 09-27-2024 Bamboo flowsheet Tyrese Swanson MD Work Phone: [facility] Start: 09-27-2024 End: 09-27-2024 Patient encounter procedure Radha Mckeon MD Work Phone: [facility] [address] Work Phone: Start: 09-27-2024 End: 09-27-2024 ambulatory Radha Mckeon MD Work Phone: [facility] Work Phone: Start: 09-27-2024 End: 09-27-2024 Office outpatient visit 40 minutes Tyrese Swanson MD Work Phone: [facility] Comment on above: 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[facility]) (Primary Dx); Kidney stone; H/O gastric bypass; Age-related osteoporosis without current pathological fracture ([facility]) Start: 09-27-2024 End: 09-27-2024 ambulatory TYRESE SWANSON Not Available Start: 09-14-2024 End: 09-14-2024 Office outpatient visit 25 minutes Gely Snow MD Work Phone: [facility] Comment on above: Dilated aortic root (CMS-HCC) (Primary Dx); Nonrheumatic aortic valve stenosis; History of DVT of lower extremity; Factor V Leiden (Multi); Anticoagulated; BMI 27.0-27.9,adult Start: 09-14-2024 End: 09-14-2024 ambulatory [facility] Start: 09-06-2024 End: 09-06-2024 Bamboo flowsheet Sadaf S [place] [employer] Work Phone: [facility] Start: 09-06-2024 End: 09-06-2024 Bamboo flowsheet Sadaf S [place] [employer] Work Phone: [facility] Start: 09-06-2024 End: 09-06-2024 Telephone encounter Miriam Villa MA [facility] Comment on above: 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 (Primary Dx) Start: 09-06-2024 End: 09-06-2024 ambulatory SADAF LJ Not Available Start: 09-06-2024 End: 09-06-2024 ambulatory SADAF S LJ Not Available Start: 08-30-2024 End: 08-30-2024 ambulatory [facility] Work Phone: Start: 08-30-2024 End: 08-30-2024 [facility] encounter [facility] Work Phone: Start: 08-10-2024 End: 08-10-2024 ambulatory SADAF LJ Not Available Start: 08-06-2024 End: 08-06-2024 Telephone encounter Mehnaz Farley LPN [facility] Start: 08-06-2024 End: 08-06-2024 ambulatory ALEJANDRINAEMILE GONZALEZ [facility] Start: 08-03-2024 End: 08-03-2024 Patient encounter procedure [facility] Work Phone: Start: 06-28-2024 End: 06-28-2024 Bamboo flowsheet Sadaf S Lj [employer] Work Phone: [facility] Start: 06-28-2024 End: 06-28-2024 Bamboo flowsheet Sadaf S Lj [employer] Work Phone: [facility] Start: 06-28-2024 End: 06-28-2024 ambulatory SADAF CANELALIN Not Available Start: 06-26-2024 End: 06-26-2024 Refill Radha Mckeon MD Work Phone: [facility] Comment on above: Factor 5 Leiden muta tion, heterozygous (CMS/HCC) Start: 06-18-2024 End: 06-18-2024 ambulatory SADAF CANELALIN Not Available Start: 05-31-2024 End: 05-31-2024 ambulatory EVANGELINA E [facility] Start: 05-17-2024 End: 05-17-2024 ambulatory MD Radha Mckeon Work Phone: [facility] Work Phone: Start: 05-17-2024 End: 05-17-2024 Patient encounter procedure MD Radha Mckeon Work Phone: [facility] Work Phone: Start: 05-11-2024 End: 05-11-2024 Patient encounter procedure MD Radha Mckeon Work Phone: [facility] [address] Work Phone: Start: 05-11-2024 End: 05-11-2024 ambulatory MD Radha Mckeon Work Phone: [facility] Work Phone: Start: 05-10-2024 End: 05-10-2024 Office outpatient visit 25 minutes Radha Mckeon MD Work Phone: [facility] Comment on above: Need for vaccination (Primary Dx); long-term (current) use of anticoagulants; Acute pain of right shoulder; Adrenal insufficiency (CMS/HCC); Age-related osteoporosis without current pathological fracture (CMS/HCC); Autoimmune disease (CMS/HCC); Factor 5 Leiden mutation, heterozygous (CMS/HCC); Major depressive disorder, single episode, moderate (HCC) (CMS/HCC); Mild persistent asthma without complication (CMS/HCC) Start: 05-10-2024 End: 05-10-2024 ambulatory RADHA MCKEON Not Available Start: 05-10-2024 End: 05-10-2024 Bamboo flowsheet Radha Mckeon MD Work Phone: [facility] Start: 05-10-2024 End: 05-10-2024 Bamboo flowsheet Radha Mckeon MD Work Phone: [facility] Start: 04-26-2024 End: 04-26-2024 Patient encounter procedure MD Radha Mckeon Work Phone: [facility] [address] Work Phone: Start: 04-26-2024 End: 04-26-2024 ambulatory MD Radha Mckeon Work Phone: [facility] Work Phone: Start: 04-23-2024 End: 04-23-2024 ambulatory MD Radha Mckeon Work Phone: [facility] Work Phone: Start: 04-23-2024 End: 04-23-2024 Patient encounter procedure MD Radha Mckeon Work Phone: [facility] Work Phone: Start: 04-19-2024 End: 04-19-2024 External Result Encounter Robert Ledezma DO Work Phone: [facility] Unsolicited Start: 04-19-2024 End: 04-19-2024 External Result Encounter Robert Ledezma DO Work Phone: [facility] Unsolicited Start: 04-19-2024 Registered Recurring MD Radha roberto Work Phone: [facility] Work Phone: Start: 04-08-2024 End: 04-08-2024 Bamboo flowsheet Sadaf S [place] [employer] Work Phone: [facility] Start: 04-08-2024 End: 04-08-2024 Bamboo flowsheet Sadaf S [place] [employer] Work Phone: [facility] Start: 04-08-2024 End: 04-08-2024 ambulatory SADAF LJ Not Available Start: 04-08-2024 End: 04-08-2024 ambulatory SADAF S LJ Not Available Start: 03-24-2024 End: 03-24-2024 ambulatory MD Radha Mckeon Work Phone: [facility] Work Phone: Start: 03-24-2024 End: 03-24-2024 Patient encounter procedure MD Radha Mckeon Work Phone: [facility] [place] [facility] Work Phone: Start: 03-22-2024 End: 03-22-2024 ambulatory SADAF LJ Not Available Start: 02-27-2024 End: 02-27-2024 ambulatory MD Radha Mckeon Work Phone: [facility] Work Phone: Start: 02-27-2024 End: 02-27-2024 Patient encounter procedure MD Radha Mckeon Work Phone: [facility] [facility] Work Phone: Start: 02-27-2024 End: 02-27-2024 Patient encounter procedure MD Radha Mckeon Work Phone: [facility] [place] [facility] Start: 02-27-2024 End: 02-27-2024 ambulatory Radha Mckeon Facility:[facility] Start: 02-12-2024 End: 02-12-2024 Office outpatient new 45 minutes Gely Snow MD Work Phone: [facility] Comment on above: Nonrheumatic aortic valve stenosis (Primary Dx); Dilated aortic root (CMS-HCC); History of DVT of lower extremity; BMI 27.0-27.9,adult; Anticoagulated Start: 02-12-2024 End: 02-12-2024 ambulatory [facility] Start: 01-19-2024 End: 01-19-2024 ambulatory SADAF S LJ Not Available Start: 01-15-2024 End: 01-15-2024 ambulatory RADHA MCKEON Not Available Start: 12-18-2023 ambulatory Jasper Jaeger ty:[id number] Start: 12-15-2023 End: 12-15-2023 ambulatory RADHA MCKEON Not Available Start: 12-10-2023 End: 12-10-2023 ambulatory Jasper ALMONTE Facility:[facility] [place] Start: 12-10-2023 End: 12-10-2023 Patient encounter procedure Jasper ALMONTE [facility] [place] Start: 12-08-2023 End: 12-08-2023 Patient encounter procedure MD Radha Mckeon Work Phone: [facility] [address] [place] Work Phone: Start: 12-08-2023 End: 12-08-2023 ambulatory MD Radha Mckeon Work Phone: [facility] Work Phone: Start: 12-05-2023 ambulatory Jasper ALMONTE Facility :[facility] [place] Start: 12-01-2023 End: 12-02-2023 Emergency department patient visit MD Radha Mckeon Work Phone: [facility] Work Phone: Start: 12-01-2023 End: 12-01-2023 ambulatory SADAF CANELALIN Not Available Start: 11-28-2023 End: 11-29-2023 Emergency department patient visit MD Radha Mckeon Work Phone: [facility] Work Phone: Start: 11-13-2023 End: 11-13-2023 ambulatory SADAF CANELALIN Not Available Start: 11-04-2023 End: 11-04-2023 ambulatory PATRICIO CIFUENTES Not Available Start: 11-03-2023 End: 11-03-2023 ambulatory BRAVO R CANTU Not Available Start: 10-27-2023 End: 10-27-2023 ambulatory NETO SHEETS Not Available Start: 10-24-2023 Registered Recurring MD Radha roberto Work Phone: [facility] Work Phone: Start: 10-13-2023 End: 10-13-2023 ambulatory SADAF S LJ Not Available Start: 10-10-2023 End: 10-10-2023 ambulatory NETO S MICKBACH Not Available Start: 10-09-2023 End: 10-09-2023 ambulatory RADHA MCKEON Not Available Start: 10-06-2023 End: 10-06-2023 ambulatory NETO SHEETS Not Available Start: 09-29-2023 End: 09-29-2023 Admission to same day surgery center MD Radha Mckeon [facility] Phone[facility] [facility] [place] Start: 09-29-2023 End: 09-29-2023 ambulatory Neto Sheets Facility:[facility] Start: 09-23-2023 End: 09-23-2023 ambulatory MD Radha Mckeon Work Phone: [facility] Work Phone: Start: 09-23-2023 End: 09-23-2023 Patient encounter procedure MD Radha Mckeon Work Phone: [facility] Work Phone: Start: 09-16-2023 External Result Encounter Neto Sheets DO Work Phone: [facility] External Department Unsolicited Start: 09-16-2023 External Result Encounter Neto Sheets DO Work Phone: [facility] External Department Unsolicited Start: 09-16-2023 Telephone encounter Radha meza MD Work Phone: [facility] Start: 09-16-2023 End: 09-16-2023 ambulatory MD Radha Mckeon Work Phone: [facility] Work Phone: Start: 09-16-2023 End: 09-16-2023 Patient encounter procedure MD Radha Mckeon Work Phone: [facility] Testing Work Phone: Start: 09-15-2023 Chart abstracting Sadaf lucianoin [employer] REFINER[employer] Work Phone: [facility] Start: 09-15-2023 Refill Radha Gar Work Phone: [facility] Comment on above: Gastro-esophageal re flux disease without esophagitis Start: 09-09-2023 End: 09-09-2023 Assay of hemosiderin, quant Radha Mckeon MD Work Phone: [facility] Start: 09-09-2023 End: 09-09-2023 Patient encounter procedure Radha Mckeon MD Work Phone: [facility] Comment on above: Routine general medi deepali examination at a health care facility (Primary Dx); 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; PMR (polymyalgia rheumatica) (CMS/HCC); Mild persistent asthma without complication (CMS/HCC); Ascending aortic aneurysm, unspecified whether ruptured (CMS/HCC); Adrenal insufficiency (CMS/HCC); Age-related osteoporosis without current pathological fracture (CMS/HCC); Factor 5 Leiden mutation, heterozygous (CMS/HCC); Autoimmune disease (CMS/HCC); Major depressive disorder, single episode, moderate (HCC) (CMS/HCC); Chronic fatigue; Secondary hyperparathyroidism (CMS/HCC); Lymphopenia; Systolic murmur; Routine general medical examination at health care facility Start: 09-09-2023 End: 09-09-2023 Patient encounter status Radha Mckeon MD Work Phone: [facility] Work Phone: Start: 06-13-2023 End: 06-13-2023 ambulatory Imad Asaad Other [employer] Other Start: 06-13-2023 Telephone encounter Imad Asaad [facility] Start: 06-10-2023 End: 06-10-2023 Admission to same day surgery center MD Radha Mckeon Work Phone: [facility]Dig[facility] Work Phone: Start: 06-10-2023 End: 06-10-2023 ambulatory MD Radha Mckeon Work Phone: [facility] Work Phone: Start: 05-19-2023 End: 05-19-2023 ambulatory Imad Asaad Other [employer] Other Start: 05-19-2023 Telephone encounter Imad Asaad [facility] Start: 05-12-2023 Registered Recurring MD Radha roberto Work Phone: [facility] Work Phone: Start: 04-22-2023 End: 04-22-2023 ambulatory MD Radha Mckeon Work Phone: [facility] Work Phone: Start: 04-22-2023 End: 04-22-2023 Registered Recurring MD Radha Mckeon Work Phone: [facility] Work Phone: Start: 04-10-2023 End: 04-10-2023 ambulatory MD Radha Mckeon Work Phone: [facility] Work Phone: Start: 04-10-2023 End: 04-10-2023 Patient encounter procedure MD Radha Mckeon Work Phone: [facility] [place] Work Phone: Start: 04-03-2023 End: 04-03-2023 ambulatory MD Radha Mckeon Work Phone: [facility] Work Phone: Start: 04-03-2023 End: 04-03-2023 Patient encounter procedure MD Radha Mckeon Work Phone: [facility] [place] [facility] Start: 04-02-2023 End: 04-02-2023 ambulatory Venkat Miller Other [employer] Other Start: 04-02-2023 Telephone encounter Venkat Miller [facility] Start: 11-28-2022 End: 11-28-2022 ambulatory Venkat Miller Other [employer] [place] Other Start: 11-28-2022 Office outpatient vi sit 15 minutes Venkat Miller [facility] [place] Start: 10-31-2022 End: 10-31-2022 ambulatory Venkat Miller Other [employer] Other Start: 10-31-2022 Office outpatient vi sit 15 minutes Venkat Miller [facility] [place] Start: 10-24-2022 End: 10-24-2022 ambulatory MD Radha Mckeon Work Phone: [facility] Work Phone: Start: 10-24-2022 End: 10-24-2022 Patient encounter procedure MD Radha Mckeon Work Phone: [facility] Work Phone: Start: 06-29-2022 End: 06-29-2022 ambulatory MD Radha Mckeon Work Phone: [facility] Work Phone: Start: 06-29-2022 End: 06-29-2022 Patient encounter procedure MD Radha Mckeon Work Phone: [facility] [place] Start: 04-25-2022 Registered Recurring MD Radha roberto Work Phone: [facility] Start: 11-19-2021 End: 11-19-2021 ambulatory Venkat Felter Other [employer] [place] Other Start: 11-19-2021 Office outpatient vi sit 15 minutes Venkat Felter [facility] [place] Start: 10-22-2021 End: 10-22-2021 ambulatory Venkat Felter Other [employer] [place] Other Start: 10-22-2021 Office outpatient ne w 45 minutes Venkat Felter [facility] [place] Start: 10-06-2021 End: 10-06-2021 ambulatory Dipti Garvin Other [employer] [place] Other Start: 10-06-2021 Telephone encounter Dipti Garvin [facility] Start: 10-05-2021 End: 10-05-2021 ambulatory Dipti Garvin Other [employer] [place] Other Start: 10-05-2021 Office outpatient vi sit 15 minutes Dipti Garvin [facility] Start: 06-17-2021 End: 06-17-2021 ambulatory Chiquita Gerber Other [employer] [place] Other Start: 06-17-2021 Office outpatient vi sit 15 minutes Chiquitachristoph Gerber [facility] Start: 01-11-2019 End: 02-09-2019 Patient encounter procedure JOSEPH ARCHER Facility:[id number] Start: 01-04-2019 End: 02-18-2019 Patient encounter procedure DOCTOR PARK Facility:[facility] Start: 07-01-2018 Patient encounter procedure Riddhi Morales Facility:[id number] Start: 12-23-2017 Patient encounter procedure Claudio Gavin Facility:[id number] Procedures Date Procedure Procedure Detail Performing Clinician Start: 09-30-2024 Prothrombin time Radha Mckeon MD Work Phone: Start: 09-06-2024 Prothrombin time Danielle Acosta NP Work Phone: Start: 09-06-2024 End: 09-06-2024 Psychotherapy w/patient 60 minutes Panic disorder (CMS/HCC) Sadaf S [place] [employer] Work Phone: Comment on above: Panic disorder (CMS/HCC); Moderate episode of recurrent major depressive disorder (CMS/HCC) Start: 06-28-2024 End: 06-28-2024 Psychotherapy w/patient 60 minutes Panic disorder (CMS/HCC) Sadaf S [place] [employer] Work Phone: Comment on above: Panic disorder (CMS/HCC); Moderate episode of recurrent major depressive disorder (CMS/HCC) Start: 05-11-2024 MRI of right shoulder MD Radha Mckeon Work Phone: Start: 05-10-2024 Prothrombin time Radha Mckeon MD Work Phone: Start: 04-19-2024 Complete blood count with white cell differential, automated Robert Ledezma DO Work Phone: Start: 04-08-2024 End: 04-08-2024 Psychotherapy w/patient 60 minutes Panic disorder (CMS/HCC) Sadaf S [place] [employer] REFINER[employer] Work Phone: Comment on above: Panic disorder (CMS/HCC); Moderate episode of recurrent major depressive disorder (HCC) (CMS/HCC) Start: 02-27-2024 Plain X-ray of right shoulder MD Radha reeder Work Phone: Start: 02-12-2024 Ecg routine ecg w/least 12 lds w/i&r Gely Snow MD Work Phone: Start: 12-08-2023 Diagnostic radiography of abdomen MD Eloina Mckeon Work Phone: Start: 12-02-2023 Urine culture MD Radha Mckeon Work Phone: Start: 12-01-2023 CT of abdomen and pelvis without contrast MD Radha Mckeon Work Phone: Start: 11-28-2023 CT of chest MD Radha Mckeon Work Phone: Start: 11-28-2023 Plain chest X-ray MD Radha Mckeon Work Phone: Start: 09-29-2023 H/O: surgery Hx of parotidectomy Sadaf COLEMAN-S Work Phone: Start: 09-29-2023 Parotidectomy MD Radha Mckeon Work Phone: Start: 09-16-2023 Basic metabolic panel calcium total Neto Diamond Biedenvijaya DO Work Phone: Start: 09-16-2023 Complete blood count with white cell differential, automated Neto Diamond Biadrienvijaya DO Work Phone: Start: 09-15-2023 End: 09-15-2023 Psychiatric diagnostic evaluation Sadaf Calhoun [employer] Work Phone: Start: 09-09-2023 Prothrombin time Radha Mckeon MD Work Phone: Start: 06-10-2023 Esophagogastroduodenoscopy MD Radha Mckeon Work Phone: Start: 04-03-2023 Plain X-ray of left hip MD Radha Mckeon Work Phone: Start: 10-24-2022 End: 10-24-2022 Screening mammography of bilateral breasts MD Radha Mckeon Work Phone: Start: 02-16-2018 Colonoscopy Radha Mckeon MD Work Phone: Appendectomy Jasper ALMONTE Bypass of stomach Jasper ANDERSON section Jasper CARCAMO Cholecystectomy Jasper BAIRES Colonoscopy Jasper ALMONTE Esophagogastroduodenoscopy P alondra ALMONTE Hammer toe operation Jasper ALMONTE History of arthropla sty of left knee Jasper ALMONTE Ligation of fallopian tube Misael ALMONTE Release of trigger finger Pa octavio ALMONTE Resection of polyp Jasper VIGIL Plan of Treatment Date Care Activity Detail Author Start: 02-17-2028 Screening for malignant neoplasm of colon [facility] Start: 09-30-2025 Medicare Annual Wellness (AWV) Medicare Annual Wellness (AWV) [facility] Start: 08-29-2025 End: 08-29-2025 Patient encounter procedure 08/29/2025 11:30 AM EST Office Visit [facility] [address] [place] [address] Evangelina Watson MD [address] [place], [place] [id number] [facility] Start: 08-06-2025 Tobacco Screening Tobacco Screening [facility] Start: 06-14-2025 End: 09-14-2025 Basic metabolic 2000 panel - Serum or Plasma Basic Metabolic Panel Lab Routine Dilated aortic root (CMS-HCC) Expected: 06/14/2025 (Approximate), Expires: 09/14/2025 [facility] Service Area Work Phone: Comment on above: Expected: 06/14/2025 (Approximate), Expi res: 09/14/2025 Start: 06-14-2025 End: 09-14-2025 CTA Chest vessels WO and W contrast IV CT angio chest w and wo IV contrast Imaging Routine Dilated aortic root (CMS-HCC) Expected: 06/14/2025, Expires: 09/14/2025 [facility] Work Phone: Comment on above: Expected: 06/14/2025, Expires: Start: 05-31-2025 Adult BMI Screening Adult BMI Screening [facility] Start: 05-31-2025 End: 05-31-2025 Patient encounter procedure 05/31/2025 1:40 PM EDT Office Visit [facility] [address] [place] [address] Gely Snow MD [address] [place] [address] [facility] Start: 05-30-2025 End: 05-30-2025 Patient encounter procedure 05/30/2025 9:45 AM EDT Office Visit [facility] [address] [place] [phone] Evangelina Watson MD [address] [place], [place] [phone] [facility] Start: 03-28-2025 End: 03-28-2025 Patient encounter procedure 03/28/2025 12:20 PM EDT Office Visit [facility] [address] [place] [phone] Radha Mckeon MD [address] [place] [address] [facility] Start: 11-22-2024 End: 11-22-2024 Social Work 11/22/2024 10:00 AM EDT Social Work [facility] [address] [place] [address] Sadaf Calhoun LISW-S [address] [place] [address] [facility] Start: 11-04-2024 End: 11-04-2024 Patient encounter procedure 11/04/2024 9:30 AM EDT Office Visit [facility] [address] [place] [phone] Patricio Cifuentes MD [address] [place] [address] [facility] Start: 10-18-2024 End: 10-18-2024 Patient encounter procedure 10/18/2024 11:40 AM EDT Office Visit [facility] [address] [place] [phone] Tyrese Swanson MD [address] [place] [address] [facility] Start: 09-30-2024 End: 09-30-2024 Patient encounter procedure [facility] Comment on above: Arrived Start: 09-30-2024 End: 09-30-2025 DXA Skeletal system Views for bone density DEXA bone density Imaging Routine Postmenopausal Expected: 09/30/2024, Expires: 09/30/2025 [facility] Work Phone: Comment on above: Expected: 09/30/2024, Expires: Start: 09-27-2024 End: 09-27-2025 25-hydroxyvitamin D3 [Mass/volume] in Serum or Plasma Vitamin D 25 hydroxy Total Lab Routine Tertiary hyperparathyroidism ([facility]) Expected: 09/27/2024 (Approximate), Expires: 09/27/2025 [facility] Comment on above: Expected: 09/27/2024 (Approximate), Expi res: 09/27/2025 Start: 09-27-2024 End: 09-27-2025 Calcium, urine, 24 hour Calcium, urine, 24 hour Lab Routine Kidney stone Expected: 09/27/2024 (Approximate), Expires: 09/27/2025 [facility] Comment on above: Expected: 09/27/2024 (Approximate), Expi res: 09/27/2025 Start: 09-27-2024 End: 09-27-2025 CREATINE, 24 HOUR URINE CREATINE, 24 HOUR URINE Lab Routine Kidney stone Expected: 09/27/2024 (Approximate), Expires: 09/27/2025 [facility] Work Phone: Comment on above: Expected: 09/27/2024 (Approximate), Expi res: 09/27/2025 Start: 09-27-2024 End: 09-27-2025 Magnesium [Mass/volume] in Serum or Plasma Magnesium Lab Routine Tertiary hyperparathyroidism ([facility]) Expected: 09/27/2024 (Approximate), Expires: 09/27/2025 [facility] Comment on above: Expected: 09/27/2024 (Approximate), Expi res: 09/27/2025 Start: 09-27-2024 End: 09-27-2025 Oxalate, urine, 24 hour Oxalate, urine, 24 hour Lab Routine Kidney stone Expected: 09/27/2024 (Approximate), Expires: 09/27/2025 [facility] Comment on above: Expected: 09/27/2024 (Approximate), Expi res: 09/27/2025 Start: 09-27-2024 End: 09-27-2025 Parathyrin.intact [Mass/volume] in Serum or Plasma PTH, intact Lab Routine Tertiary hyperparathyroidism ([facility]) Expected: 09/27/2024 (Approximate), Expires: 09/27/2025 [facility] Comment on above: Expected: 09/27/2024 (Approximate), Expi res: 09/27/2025 Start: 09-27-2024 End: 09-27-2025 Renal function panel Renal function panel Lab Routine Tertiary hyperparathyroidism ([facility]) Expected: 09/27/2024 (Approximate), Expires: 09/27/2025 [facility] Comment on above: Expected: 09/27/2024 (Approximate), Expi res: 09/27/2025 Start: 09-27-2024 End: 09-27-2024 Patient encounter procedure [facility] Comment on above: Arrived Start: 09-13-2024 End: 09-13-2024 Patient encounter procedure 09/13/2024 2:00 PM EST Office Visit [facility] [address] [place] [phone] Radha Mckeon MD [address] [place] [address] [facility] Start: 09-10-2024 Medicare Annual Wellness Visit Medicare Annual Wellness Visit (AWV) [facility] Start: 09-09-2024 Medicare Annual Wellness (AWV) Medicare Annual Wellness (AWV) [facility] Start: 09-06-2024 End: 09-06-2024 Social Work 09/06/2024 10:00 AM EST Social Work [facility] [address] [place] [address] Sadaf Calhoun, S[employer] REFINER-S [address] [place] [address] Arrived [facility] Comment on above: Arrived Start: 08-29-2024 Screening for osteoporosis Bone Density Scan [facility] Start: 08-24-2024 End: 08-24-2024 Patient encounter procedure 08/24/2024 3:10 PM EST Office Visit [facility] [address] [place] [address] Gely Snow MD [address] [facility] [address] [place] [address] [facility] Start: 06-28-2024 End: 06-28-2024 Social Work 06/28/2024 10:00 AM EST Social Work [facility] [address] [place] [address] Sadaf Calhoun, [employer] RE[employer]ER[employer]S [address] [place] [address] [facility] Start: 06-10-2024 End: 06-10-2024 Social Work 06/10/2024 10:00 AM EST Social Work [facility] [address] [place] [address] Sadaf Calhoun, SALT REFINER-S [address] [place] [address] [facility] Start: 05-10-2024 End: 05-10-2024 Patient encounter procedure 05/10/2024 2:20 PM EDT Office Visit [facility] [address] [place] [phone] Radha Mckeon MD [address] [place] [facility] [place] [address] Arrived [facility] Comment on above: Arrived Start: 04-08-2024 End: 04-08-2024 Social Work [facility] Comment on above: Arrived Start: 04-04-2024 COVID-19 Vaccine () COVID-19 Vaccine () [facility] Start: 04-04-2024 Influenza vaccination Influenza Vaccine (#1) [facility] Start: 02-27-2024 Plain X-ray of right shoulder XR shoulder RT min 2V* [facility] Start: 02-27-2024 XR Shoulder - right Views [facility] Start: 12-02-2023 Bacteria identified in Urine by Culture Urine Culture [facility] Start: 12-01-2023 CT Abdomen and Pelvis WO contrast [facility] Start: 12-01-2023 CT of abdomen and pelvis without contrast CT abdomen pelvis wo con [facility] Start: 11-28-2023 CT of chest [facility] Start: 11-28-2023 Plain chest X-ray XR chest 1V portable [facility] Start: 11-28-2023 XR Chest Single view [facility] Start: 10-25-2023 Screening for malignant neoplasm of breast Mammogram [facility] Start: 10-24-2023 [facility] Start: 10-13-2023 End: 10-13-2023 Social Work 10/13/2023 10:00 AM EDT Social Work [facility] [address] [facility] [place] [address] Sadaf Calhoun, JARED-S [address] [facility] [place], [place] [phone] [facility] Start: 10-06-2023 End: 10-06-2023 Patient encounter procedure 10/06/2023 10:45 AM EST Office Visit [facility] [place] [address] [place] [address] Neto Sheets, DO [address] [place] [address] [facility] [place] Start: 10-02-2023 End: 10-02-2023 Patient encounter procedure [facility] [place] Start: 09-29-2023 [facility] Start: 09-29-2023 [facility] Start: 09-29-2023 End: 09-29-2023 Patient encounter procedure 09/29/2023 1:00 PM EST Procedure Visit [facility] Neto Sheets, DO [address] [place] [address] [facility] Start: 09-18-2023 End: 09-18-2023 Professional / ancillary services management 09/18/2023 9:30 AM EST Ancillary Procedure [facility] [address] [phone] Start: 09-15-2023 End: 09-15-2023 Social Work 09/15/2023 1:00 PM EST Social Work [facility] [address] [place] [address] Sadaf Calhoun S, [employer] RE[employer]ER-[employer] [address] [place] [address] [facility] Start: 09-09-2023 End: 09-09-2024 25-hydroxyvitamin D3 [Mass/volume] in Serum or Plasma Vitamin D 25 hydroxy Lab Routine Age-related osteoporosis without current pathological fracture (CMS/HCC) Expected: 09/09/2023 (Approximate), Expires: 09/09/2024 [facility] Comment on above: Expected: 09/09/2023 (Approximate), Expi res: 09/09/2024 Start: 09-09-2023 End: 09-09-2024 CBC W Auto Differential panel - Blood CBC and differential Lab Routine Age-related osteoporosis without current pathological fracture (CMS/HCC) Expected: 09/09/2023 (Approximate), Expires: 09/09/2024 [facility] Comment on above: Expected: 09/09/2023 (Approximate), Expi res: 09/09/2024 Start: 09-09-2023 End: 09-09-2024 Comprehensive metabolic 2000 panel - Serum or Plasma Comprehensive metabolic panel Lab Routine Age-related osteoporosis without current pathological fracture (CMS/HCC) Expected: 09/09/2023, Expires: 09/09/2024 [facility] Comment on above: Expected: 09/09/2023, Expires: Start: 09-09-2023 End: 09-09-2024 CT Chest W contrast IV CT chest w IV contrast Imaging Routine Ascending aortic aneurysm, unspecified whether ruptured (CMS/HCC) Expected: 09/09/2023, Expires: 09/09/2024 [facility] Comment on above: Expected: 09/09/2023, Expires: Start: 09-09-2023 End: 09-09-2024 Parathyrin.intact [Mass/volume] in Serum or Plasma PTH, intact Lab Routine Age-related osteoporosis without current pathological fracture (CMS/HCC) Secondary hyperparathyroidism (CMS/HCC) Expected: 09/09/2023 (Approximate), Expires: 09/09/2024 [facility] Work Phone: Comment on above: Expected: 09/09/2023 (Approximate), Expi res: 09/09/2024 Start: 06-10-2023 [facility] Start: 05-12-2023 [facility] Start: 05-07-2023 [facility] Start: 05-02-2023 [facility] Start: 04-29-2023 [facility] Start: 04-04-2023 COVID-19 Vaccine () COVID-19 Vaccine () [facility] Start: 01-06-2018 [facility] Start: 12-30-2017 [facility] Start: 2017 Fall Risk Screening Fall Risk Screening [facility] Start: 2012 RSV High Risk: (Elderly (60+) or Population) (1 - Risk 60-74 years 1-dose series) RSV High Risk: (Elderly (60+) or Population) (1 - Risk 60-74 years 1-dose series) [facility] Start: 2012 RSV patients and/or patients aged 60+ years (1 - 1-dose 60+ series) RSV patients and/or patients aged 60+ years (1 - 1-dose 60+ series) [facility] Start: 1974 DTaP/Tdap/Td Vaccines (1 - Tdap) DTaP/Tdap/Td Vaccines (1 - Tdap) [facility] Start: 12-17-1971 DTaP,Tdap and Td Vaccines (1 - Tdap) DTaP,Tdap and Td Vaccines (1 - Tdap) [facility] Start: 1970 Adult BMI Follow Up Plan Adult BMI Follow Up Plan [facility] Start: 1970 Hepatitis C screening Hepatitis C Screening [facility] Start: 1964 Depression Screening Depression Screening [facility] Start: 1957 COVID-19 Vaccine (#1) COVID-19 Vaccine (#1) [facility] Start: 1952 Lipid panel Lipid Panel [facility] Start: 1952 Medicare Annual Wellness Visit Medicare Annual Wellness Visit (AWV) [facility] Start: 1952 Screening for malignant neoplasm of colon [facility] Healthcare Ascorbic acid measurement [facility] Bacteria identified in Urine by Culture [facility] Comprehensive metabolic 1999 panel - Serum or Plasma [facility] Comprehensive metabolic 1999 panel - Serum or Plasma [facility] Comprehensive metabolic 2000 panel - Serum or Plasma Comprehensive metabolic panel Lab Routine 04/19/2024 11:17 AM EDT [facility] Work Phone: Ferritin [Mass/volume] in Serum or Plasma [facility] Work Phone: Ferritin [Mass/volume] in Serum or Plasma [facility] Ferritin [Mass/volume] in Serum or Plasma [facility] Iron and Iron bindin g capacity panel - Serum or Plasma Iron and TIBC Lab Routine 04/19/2024 11:17 AM EDT [facility] MR Shoulder - right WO contrast [facility] Patient Education [facility] Work Phone: Patient referral [facility] Work Phone: Pyridoxine [Mass/volume] in Serum or Plasma [facility] Selenium [Mass/volume] in Blood [facility] Thiamine [Moles/volume] in Blood [facility] Zinc [Mass/volume] i n Serum or Plasma [facility] Immunizations Immunization Date Immunization Notes Care Provider Fa [facility] 05-10-2024 influenza, high dose seasonal, preservative-free Radha Mckeon MD Work Phone: [facility] 04-05-2024 influenza, seasonal, injectable Gely Snow MD Work Phone: [facility] Work Phone: 04-20-2023 influenza virus vaccine, unspecified formulation Jasper ALMONTE [facility] 04-20-2023 Influenza, Seasonal, Quadrivalent, Adjuvanted Radha Mckeon MD Work Phone: [facility] 08-29-2022 influenza virus vaccine, unspecified formulation Jasper ALMONTE [facility] 08-29-2022 Influenza, High-dose Seasonal, Quadrivalent, Preservative Free Radha Mckeon MD Work Phone: [facility] 08-06-2021 COVID-19 Chelita Clark (Pfizer) MD Radha Mckeon Work Phone: [facility] 05-08-2021 influenza virus vaccine, unspecified formulation Jasper ALMONTE [facility] 05-08-2021 Influenza, High-dose Seasonal, Quadrivalent, Preservative Free Radha Mckeon MD Work Phone: [facility] 11-21-2020 COVID-19 mRNAChelita (Pfizer) MD Radha Mckeon Work Phone: [facility] 10-30-2020 COVID-19 mRNA, Comirnatnatasha (Pfizer) MD Radha Mckeon Work Phone: [facility] 05-18-2020 influenza virus vaccine, unspecified formulation Jasper ALMONTE [facility] 05-18-2020 Influenza, Seasonal, Quadrivalent, Adjuvanted Radha Mckeon MD Work Phone: [facility] 07-18-2019 zoster vaccine recombinant Radha Mckeon MD Work Phone: [facility] 06-01-2019 pneumococcal conjuga te vaccine, 13 valent Radha Mckeon MD Work Phone: [facility] 05-03-2019 influenza virus vaccine, unspecified formulation Jasper ALMONTE [facility] 05-03-2019 influenza, high dose seasonal, preservative-free Radha Mckeon MD Work Phone: [facility] 05-03-2019 zoster vaccine recombinant Radha Mckeon MD Work Phone: [facility] 05-20-2018 influenza virus vaccine, unspecified formulation Jasper ALMONTE [facility] 05-20-2018 influenza, high dose seasonal, preservative-free Radha Mckeon MD Work Phone: [facility] 05-08-2018 influenza virus vaccine, unspecified formulation Jasper ALMONTE [facility] 05-08-2018 influenza, injectabl e, quadrivalent, contains preservative Radha Mckeon MD Work Phone: [facility] 05-04-2018 seasonal influenza, intradermal, preservative free Radha Mckeon MD Work Phone: [facility] 01-27-2018 pneumococcal polysaccharide vaccine, 23 valent Radha Mckeon MD Work Phone: [facility] Healthcare Payers Date Payer Category Payer Medicare HMO [facility] [id number] 2024 Medicare (Managed Care) [id number]. [id number] 2024 Medicare [id number] 2023 Self-pay [id number] 2021 Private [facility] Insurance [facility] [id number] 2021 Unknown 2017 Commercial [employer]emn[employer] Member Subscriber Plan / Payer (Effective 2017-Present) Name: Rebecca Nugent Relation to Subscriber: Self Name: Rebecca Nugent Payer ID: Not on file Type: Not on file Address: [place] [id number] 2017 Medicare [id number] 1959 Medicare [id number] 1959 Medicare [id number] 1959 Unknown [id number] 1952 Unknown [id number] 2.16.840.1.120100.3.579.2. 356 1952 Unknown [id number] 2.16.840.1.197217.3.579.2. 356 1952 Unknown [id number] 2.16.840.1.284873.3.579.2. 593 1952 Unknown [id number] 2.16.840.1.879322.3.579.2. 593 1952 Unknown [id number] 2.16.840.1.125157.3.579.2. 1286 1952 Unknown [id number] 2.16.840.1.893132.3.579.2. 1286 1952 Unknown [id number] 2.16.840.1.329057.3.579.2. 1244 1952 Unknown [id number] 2.16.840.1.594076.3.579.2. 1244 1952 Unknown [id number] 2.16.840.1.411804.3.579.2. 727 1952 Unknown [id number] 2.16.840.1.502452.3.579.2. 727 1952 Unknown [id number] 2.16.840.1.397878.3.579.2. 1258 1952 Unknown [id number] 2.16.840.1.418209.3.579.2. 1258 1952 Unknown [id number] 2.16.840.1.278984.3.579.2. 1258 1952 Unknown [id number] 2.16.840.1.316160.3.579.2. 1258 1952 Unknown [id number] 2.16.840.1.354977.3.579.2. 1258 1952 Unknown [id number] 2.16.840.1.461604.3.579.2. 1258 1952 Unknown [id number] 2.16.840.1.020280.3.579.2. 1258 1952 Unknown [id number] 2.16.840.1.486597.3.579.2. 1258 1952 Unknown [id number] 2.16.840.1.177529.3.579.2. 1258 1952 Unknown [id number] 2.16.840.1.871167.3.579.2. 1258 1952 Unknown [id number] 2.16.840.1.220709.3.579.2. 1258 1952 Unknown [id number] 2.16.840.1.535390.3.579.2. 1258 1952 Unknown [id number] 2.16.840.1.757784.3.579.2. 1258 1952 Unknown [id number] 2.16.840.1.007208.3.579.2. 1258 1952 Unknown [id number] 2.16.840.1.102957.3.579.2. 1258 1952 Unknown [id number] 2.16.840.1.322457.3.579.2. 1258 1952 Unknown [id number] 2.16.840.1.770103.3.579.2. 1258 1952 Unknown [id number] 2.16.840.1.215321.3.579.2. 1258 1952 Unknown [id number] 2.16.840.1.287824.3.579.2. 1258 1952 Unknown [id number] 2..840.1.932594.3.579.2. 1258 1952 Unknown [id number] 2..840.1.841131.3.579.2. 1258 1952 Unknown [id number] 2..840.1.470019.3.579.2. 1258 Medicare [id number] [id number] Private Health Insurance [facility] [id number] Unknown [id number] 2.16.840.1.127720.3.579.2. 531 Unknown [id number] 2.16.840.1.540554.3.579.2. 531 Unknown [id number] 2.16.840.1.166991.3.579.2. 531 Unknown [id number] 2.16.840.1.486452.3.579.2. 531 Unknown [id number] 2.16.840.1.737603.3.579.2. 531 Unknown [id number] 2.16.840.1.774503.3.579.2. 531 Unknown [id number] 2.16.840.1.304082.3.579.2. 531 Unknown [id number] 2.16.840.1.078784.3.579.2. 531 Unknown [id number] 2.16.840.1.853892.3.579.2. 531 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 Date Type Detail Facility Unknown if ever smoked [facility] Other Start: 07-15-2023 End: 09-30-2024 Sex Assigned At [facility] Start: 1950 Sex Assigned At Female [facility] Start: 05-30-2023 End: 06-10-2023 Tobacco smoking status NHIS Never smoked tobacco (finding) [facility] Start: 05-30-2023 End: 02-12-2024 Tobacco use and exposure Smokeless tobacco non-user [facility] Start: 09-09-2023 End: 09-30-2024 Alcohol intake Current drinker of alcohol (finding) [facility] Start: 07-15-2023 End: 09-09-2023 Alcohol intake [facility] Within the last year , have you been afraid of your partner or ex-partner? No [facility] Do you belong to any clubs or organizations such as orthodox groups, unions, fraternal or athletic groups, or school groups? Yes [facility] Are you now , , , , never or living with a partner? [facility] How often to you hav e a drink containing alcohol? 2-3 time sa week [facility] How many standard dr inks containing alcohol do you have on a typical day? 1 or 2 [facility] How often do you hav e 6 or more drinks on 1 occasion? Never [facility] How hard is it for y ou to pay for the very basics like food, housing, medical care, and heating Not very hard [facility] Do you feel stress - tense, restless, nervous, or anxious, or unable to sleep at night because your mind is troubled all the time - these days [OSQ] Very much [facility] (I/We) worried wheth er (my/our) food would run out before (I/we) got money to buy more. Never true [facility] Start: 06-29-2023 In the past 12 months, has lack of transportation kept you from medical appointments or from getting medications? No [facility] Start: 04-03-2023 Alcohol Comment 1-2 drinks 2-4x a month in the past year, Caffeine intake: 3-4 cups per day coffee, soda/pop [facility] Start: 1950 Sex Assigned At Not on file [facility] Start: 10-16-2022 Gender identity Identifies as female gender (finding) [facility] Start: 09-15-2023 Alcohol Comment Caffeine intake: 3-4 cups per day coffee, soda/pop [facility] How often to you hav e a drink containing alcohol? 2-4 times a month [facility] How often to you hav e a drink containing alcohol? Monthly or less [facility] How many standard dr inks containing alcohol do you have on a typical day? 3 or 4 [facility] How often do you hav e 6 or more drinks on 1 occasion? Less than monthly [facility] Start: 02-02-2024 End: 09-14-2024 Exposure to SARS-CoV-2 (event) Not sure [facility] Start: 01-13-2018 Alcohol Comment social [facility] Start: 03-09-2015 End: 09-28-2024 Sex Female (finding) [facility] Goals Date Patient Goal Desired Activity /State Functional Status Date Assessment Result Facility 12-10-2023 Functional Status N/A [facility] Clinical Notes 06-24-2017 to 09-30-2024 Radha Mckeon MD - 09/30/2024 3:00 PM Alisha Swanson MD - 09/27/2024 11:40 AM Tono Snow MD - 09/14/2024 1:30 PM ESTPatient Meg Villa MA - 09/06/2024 11:00 AM EST Note Date & Type Note Facility 09-30-2024 History of Present illness Narrative Images from the original note were not included. Rebecca Nugent is a 73 y.o. female presents with chief complaint of Medicare Annual Wellness Visit Subsequent HPI: Over the past 2 weeks, how often have you been bothered by any of the following problems? Little interest or pleasure in doing things: Not at all Feeling down, depressed, or hopeless: Not at all Patient Health Questionnaire-2 Score: 0 Over the past 2 weeks, how often have you been bothered by any of the following problems? Trouble falling or staying asleep, or sleeping too much: Not at all Feeling tired or having little energy: Not at all Poor appetite or overeating: Not at all Feeling bad about yourself - or that you are a failure or have let yourself or your family down: Not at all Trouble concentrating on things, such as reading the newspaper or watching television: Not at all Moving or speaking so slowly that other people could have noticed? Or the opposite - being so fidgety or restless that you have been moving around a lot more than usual.: Not at all Thoughts that you would be better off or hurting yourself in some way: Not at all Patient Health Questionnaire-9 Score: 0 Brown Fall Risk History of Falling, Immediate or Within 3 Months: No Health Risk Assessment Form Do you need help eating, bathing, using the toilet, dressing, or getting around your home?: No Can you prepare your own meals?: Yes Can you do your own housework without help?: Yes Can you shop for groceries or clothes without help?: Yes Do you exercise for about 20 minutes 3 or more days a week?: Yes How confident are you that you can control and manage most of your health problems?: Very confident Can you mange your money, credit cards and accounts, pay bills and taxes?: Yes Cognitive Screening Self Assessment: No overt cognitive deficiency is apparent by direct observation Three Word Registration: Banana, [place], Chair Clock Drawing: Normal Clock - 2 Three Word Recall: All 3 words correct - 3 Total Score (0-5 Points): 5 Pain Assessment Pain Score: 1 History of Present Illness The patient presents for evaluation of anticoagulation management, blood pressure management, kidney stones, osteoporosis, and overall health. She has recently acquired new insurance coverage and is considering a transition back to either [facility] or [facility]. She anticipates a call from her insurance provider, [employer], regarding this matter tomorrow morning. She expresses no current concerns but seeks information about lipoprotein A, as a friend in the medical field had her levels tested and found them to be within the normal range. However, she believes that if there is a genetic predisposition, the levels should be lower than normal. She has been prescribed lisinopril for blood pressure management. She experienced a recurrence of kidney stones this year, which was particularly distressing. She is under the care of an bender hand to prevent future occurrences and is scheduled to collect a 24-hour urine sample at [facility] in 3 weeks. Her vitamin D level remains unchanged. She has been diagnosed with osteoporosis and receives infusions as part of her treatment regimen, which [facility]. She maintains a healthy diet and engages in regular physical activity, including yoga, which she reports as beneficial. She reports normal bowel movements. MEDICATIONS Current: lisinopril SUBJECTIVE: MEDICATIONS: Current Outpatient Medications Medication Instructions acetaminophen (TYLENOL) 650 mg, Every 6 hours PRN albuterol (ProAir Digihaler) 90 mcg/act breath-activated inhaler (w/ sensor) 2 puffs, Every 4 hours PRN amoxicillin (Amoxil) 500 MG capsule buPROPion XL (Wellbutrin XL) 300 MG 24 hr tablet TAKE 1 TABLET BY MOUTH EVERY DAY IN THE MORNING FOR 90 DAYS busPIRone (BUSPAR) 5 mg, Oral, 3 times daily PRN cholecalciferol (Vitamin D-3) 50 MCG (1999 UT) tablet Daily famotidine (PEPCID) 20 mg, Oral, Nightly PRN fluticasone (Flonase) 50 MCG/ACT nasal spray 2 sprays, Daily RT hydroxychloroquine (Plaquenil) 200 MG tablet Every 24 hours lisinopril 2.5 mg, Daily RT nitroglycerin (Rectiv) 0.4 % (w/w) rectal ointment Twice daily PARoxetine (PAXIL) 30 mg, Oral, Every morning silver sulfADIAZINE (Silvadene) 1 % cream Topical, Daily triamcinolone (Kenalog) 0.1 % cream Topical, 2 times daily, to affected area warfarin (Coumadin) 2 MG tablet TAKE 1 TABLET BY MOUTH EVERY DAY. TAKE 1 MG ON TUESDAYS I have reviewed and reconciled the history and medication list with the patient today. REVIEW OF SYMPTOMS: Review of Systems OBJECTIVE: Visit Vitals BP 128/78 (BP Location: Left arm, Patient Position: Sitting, BP Cuff Size: Adult) Pulse 54 Temp 93.4 F (Tympanic) Wt 157 lb 6.4 oz LMP (LMP Unknown) SpO2 96% BMI 27.02 kg/m OB Status Postmenopausal Smoking Status Never BSA 1.8 m Physical Exam Constitutional: Appearance: Normal appearance. She is normal weight. HENT: Head: Normocephalic and atraumatic. Nose: Nose normal. Mouth/Throat: Mouth: Mucous membranes are moist. Eyes: Pupils: Pupils are equal, round, and reactive to light. Cardiovascular: Rate and Rhythm: Normal rate and regular rhythm. Heart sounds: No murmur heard. Pulmonary: Effort: Pulmonary effort is normal. Breath sounds: Normal breath sounds. No wheezing or rhonchi. Musculoskeletal: General: No swelling. Cervical back: Normal range of motion and neck supple. Right lower leg: No edema. Left lower leg: No edema. Skin: General: Skin is warm and dry. Findings: No rash. Neurological: Mental Status: She is alert and oriented to person, place, and time. Sensory: No sensory deficit. Gait: Gait normal. Psychiatric: Mood and Affect: Mood normal. Thought Content: Thought content normal. Judgment: Judgment normal. ASSESSMENT AND PLAN: Assessment/Plan Problem List Items Addressed This Visit Adrenal insufficiency (CMS/HCC) Managed by endo Age related osteoporosis (CMS/HCC) Managed by endo yearly zometa Autoimmune disease (CMS/HCC) Per rheumatology Factor 5 Leiden mutation, heterozygous (CMS/HCC) On anticoagulation Major depressive disorder, single episode, moderate (HCC) (CMS/HCC) stable Mild persistent asthma without complication (CMS/HCC) stable Obstructive sleep apnea syndrome Good cpap compliance PMR (polymyalgia rheumatica) (CMS/HCC) Per rheuamtologu Postoperative malabsorption (CMS/HCC) Secondary hyperparathyroidism (CMS/HCC) monitored Thoracic ascending aortic aneurysm (CMS/HCC) Repeat echo in 1 year Moderate episode of recurrent major depressive disorder (CMS/HCC) History of deep venous thrombosis (DVT) of distal vein of right lower extremity Mediastinal lymphadenopathy Primary osteoarthritis of both knees Aortic root dilatation (CMS/HCC) Repeat echo in 1 year Other Visit Diagnoses Routine general medical examination at a health care facility - Primary 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 Relevant Orders POCT Protime-INR, fingerstick docked device (Completed) Postmenopausal Relevant Orders DEXA bone density Osteoporosis, unspecified osteoporosis type, unspecified pathological fracture presence (CMS/HCC) zometa As of your medicare wellness visit , the medical team reviewed your chart and chronic problems and treatment. Your information regarding healthy diet, activity, immunizations, depression screening, advance directives , activities of daily living medications, cognitive screening and risk factors for disease were reviewed or addressed Assessment & Plan 1. Anticoagulation management. Her International Normalized Ratio (INR) is currently at an optimal level of 2.3. She is advised to consult with her truck sales representative regarding the potential benefits of lipoprotein A testing. 2. Blood pressure management. She is currently on lisinopril for blood pressure management. 3. Kidney stones. She is under the care of an bender hand to prevent recurrence of kidney stones and is scheduled to collect a 24-hour urine sample at [facility] in 3 weeks. 4. Osteoporosis. She is receiving infusions for osteoporosis, managed by the [facility]. 5. Overall health. She maintains a healthy diet and engages in regular physical activity, including yoga, which she reports as beneficial. She reports normal bowel movements. Follow-up The patient will follow up in 6 months or sooner if any complications arise. documented in this encounter [facility] 09-27-2024 History of Present illness Narrative Rebecca Nugent is a 73 y.o. female Sadaf Calhoun LISW* presents with chief complaint of Thyroid Problem and Follow-up (1.5 YRS 09/2023 PAROTIDECTOMY) HPI: IM : 09/2024 Follow up Visit in 09/27/2024 with recommendation of her risk management specialist for evaluation for possible oxalate kidney stone, she has multiple kidney stones before, never able to analyze her stone, PTH always high before due to history of gastric bypass, calcium within normal limits back in April 2024 8.6, she is also currently under management of her oncologist for osteoporosis, got Reclast 1 injection so far. Interim History: 01/2023 Followup visit 01/07/2023 for secondary hyperparathyroidism. lab PTH is still high at 359 (12-88); calcium within normal limits 8.6 (8.6-10.2); vitamin D 43. on 50,000 units 4 days a week, said dexascan done 2 years ago was -3.6 on her forearm, this time dexascan they did not do arm. Interim History: 07/2022 Followup visit 07/16/2022 for secondary hyperparathyroidism. lab PTH is still high at 284 (12-88); calcium within normal limits 8.7 (8.6-10.2); vitamin D 25. on 50,000 units 5 days a week Interim History: 07/2021 Followup visit 07/24/2021 for secondary hyperparathyroidism. lab PTH is still high at 194 (14-64); calcium within normal limits 8.6 (8.6-10.2); vitamin D 42. on 50,000 units 5 days a week Interim History: 02/2021 Followup visit 02/13/2021 for secondary hyperparathyroidism. New lab PTH is still high at 137 (14-64); calcium within normal limits 8.7 (8.6-10.2); vitamin D 47 Interim History: 08/2020 Followup visit 08/15/2020 for secondary hyperparathyroidism. New lab PTH is still high at 112 (14-64); calcium within normal limits 9.3 (8.6-10.2); phosphor normal 4.2 (2.2-4.4); vitamin D 36, the last time we cut her vitamin D to 50,000 five times a week instead of nine times a week; zinc mildly low at 57 (60-130); TSH 2.04. HPI : 02/2020 New patient sent, used to be followed by Dr. Michael Moore, he plans to retire. She has extensive history of gastric bypass surgery done in 2000, maximum weight 330, lowest 141, currently at 168 and she has malabsorption. She is using high dose vitamin D 50,000, 9 times per week once a day except Friday and Friday she takes 2 tablets and also she is on zinc once a day, still on the low side. New labs in February 2020; calcium back normal at 8.7, PTH 201 (12-88) persistently high, it was 215 in April 2019 and 190 in January 2019, zinc 45 (45-150), she has persistently high PTH after replacing vitamin D, but calcium within normal limits. Had kidney stone in 2004 and 2013, does not remember if she has had another one in [address] Cespedes for possible polymyalgia rheumatica and at some point they suspected joint arthritis, they put her for short-term steroids then off. They ACTH stim test done within normal limits, cortisol 21. She is not on any steroids now. SUBJECTIVE: MEDICATIONS: Current Outpatient Medications Medication Instructions acetaminophen (TYLENOL) 650 mg, Every 6 hours PRN albuterol (ProAir Digihaler) 90 mcg/act breath-activated inhaler (w/ sensor) 2 puffs, Every 4 hours PRN amoxicillin (Amoxil) 500 MG capsule buPROPion XL (Wellbutrin XL) 300 MG 24 hr tablet TAKE 1 TABLET BY MOUTH EVERY DAY IN THE MORNING FOR 90 DAYS busPIRone (BUSPAR) 5 mg, Oral, 3 times daily PRN cholecalciferol (Vitamin D-3) 50 MCG (1999 UT) tablet Daily famotidine (PEPCID) 20 mg, Oral, Nightly PRN fluticasone (Flonase) 50 MCG/ACT nasal spray 2 sprays, Nasal, Daily RT hydroxychloroquine (Plaquenil) 200 MG tablet Every 24 hours nitroglycerin (Rectiv) 0.4 % (w/w) rectal ointment Twice daily PARoxetine (PAXIL) 30 mg, Oral, Every morning silver sulfADIAZINE (Silvadene) 1 % cream Topical, Daily triamcinolone (Kenalog) 0.1 % cream Topical, 2 times daily, to affected area warfarin (Coumadin) 2 MG tablet TAKE 1 TABLET BY MOUTH EVERY DAY. TAKE 1 MG ON TUESDAYS ALLERGIES: Allergies Allergen Reactions Enoxaparin Itching and Rash Past Medical History: Diagnosis Date Abnormal level of blood mineral Allergic 09/26/23 Anemia 01/2017 Anxiety Aortic aneurysm ([facility]) Arthritis Bariatric surgery status Bradycardia Chronic pain disorder 12/27/2022 Circumscribed scleroderma Cough 02/26/2017 Depression ([facility]) Difficulty walking 12/27/2022 DVT (deep venous thrombosis) ([facility]) 1996 R leg Factor V Leiden mutation ([facility]) 1997 GERD (gastroesophageal reflux disease) Heart murmur History of medical problems Biliopancreatic bypass Kidney stones 05/2014 Lichen sclerosus Lung nodule 2017 Lymphopenia Osteopenia Osteoporosis ([facility]) 12/27/2022 Other chronic pain 12/27/2022 Panic disorder ([facility]) Plantar wart 12/27/2022 PMB (postmenopausal bleeding) 12/27/2022 Polydipsia 12/27/2022 Secondary hyperparathyroidism (CMS/HCC) Sleep apnea Sleep apnea, obstructive 2014 Vaginal atrophy Vitamin D deficiency Past Surgical History: Procedure Laterality Date APPENDECTOMY BIOPSY LOWER LEG Left 2017 lesion x 2 SECTION, LOW TRANSVERSE CHOLECYSTECTOMY COLONOSCOPY 02/16/[address] ANGIOGRAM CHEST 10/05/2020 CT ANGIOGRAM CHEST [facility] DILATION AND CURETTAGE ENDOMETRIAL BIOPSY 2014 GASTRIC BYPASS HYSTEROSCOPY 2017 JOINT REPLACEMENT 12/2018 KNEE SURGERY Arthroscopy knee KNEE SURGERY Left 12/31/2018 LUNG BIOPSY 2017 LA CORRECTION HAMMERTOE LA LIGATION/BIOPSY TEMPORAL ARTERY 2017 biopsy SALIVARY GLAND SURGERY 09/29/2023 Left Parotid TRIGGER FINGER RELEASE TUBAL LIGATION Bilateral REVIEW OF SYMPTOMS: 14 POINT OF SYSTEM REVIEWED AND NEGATIVE OBJECTIVE: Visit Vitals BP 110/64 Pulse (!) 49 Resp 16 Ht 5' 4 Wt 159 lb LMP (LMP Unknown) SpO2 97% BMI 27.29 kg/m OB Status Postmenopausal Smoking Status Never BSA 1.8 m Physical Exam Constitutional: Appearance: Normal appearance. She is normal weight. HENT: Head: Normocephalic and atraumatic. Right Ear: External ear normal. Nose: Nose normal. Mouth/Throat: Pharynx: Oropharynx is clear. Eyes: Extraocular Movements: Extraocular movements intact. Pupils: Pupils are equal, round, and reactive to light. Cardiovascular: Rate and Rhythm: Normal rate and regular rhythm. Pulmonary: Effort: Pulmonary effort is normal. Abdominal: General: Abdomen is flat. Palpations: Abdomen is soft. Musculoskeletal: General: Normal range of motion. Skin: General: Skin is warm. Neurological: General: No focal deficit present. Mental Status: She is alert. Psychiatric: Mood and Affect: Mood normal. Behavior: Behavior normal. ASSESSMENT AND PLAN: Assessment/Plan Diagnoses and all orders for this visit: Tertiary hyperparathyroidism (CMS/HCC) - Magnesium; Future - Renal function panel; Future - Vitamin D 25 hydroxy Total; Future - PTH, intact; Future Calcium within normal limits, most likely due to history of gastric bypass we will check all lab again together Kidney stone - CREATINE, 24 HOUR URINE; Future - Calcium, urine, 24 hour; Future - Oxalate, urine, 24 hour; Future We will check 24 hour urine oxalate and calcium. H/O gastric bypass Continue with her supplements. Age-related osteoporosis without current pathological fracture (CMS/HCC) She is following oncologist for her Reclast Follow up in about 2 weeks (around 10/11/2024). documented in this encounter [facility] 09-14-2024 History of Present illness Narrative Subjective Rebecca Nugent is a 73 y.o. female Chief Complaint Follow-up HPI Patient is here for follow-up to management for mild aortic stenosis dilated aortic root and hypercoagulable state. Since last time I saw her she denies chest pain, palpitation, lightheadedness, dizziness or syncope. She remains reasonably active. She elected not to take lisinopril as she was advised for vascular protection. Her previous cardiac workup was consistent with mild aortic stenosis and dilated aorta. Assessment 1. Mild aortic stenosis 2. Mildly dilated aortic root and thoracic aorta distal to the pulmonic artery bifurcation at [address] scan 3. Pulmonary sarcoidosis 4. History of hypercoagulable state reported to be factor Leiden abnormality on long-term anticoagulation 5. Mild resting sinus bradycardia Plan 1. I discussed with the patient the natural history of mild aortic stenosis and mildly dilated thoracic aorta. I had to repeat her CTA before next office visit 2. The patient lipid profile showed she had excellent lipid profile 3. Patient is not a good candidate for beta-indy due to resting sinus bradycardia 4. I explained to her the rationale behind the lisinopril for vascular protection and she agreed to start low-dose 2.5 mg daily 5. Will see her back in 9-month Review of Systems All other systems reviewed and are negative. Vitals: 09/14/24 1336 BP: 130/72 BP Location: Left arm Patient Position: Sitting Pulse: 56 Weight: 70.8 kg (156 lb) Height: 1.626 m (5' 4 ) Objective Physical Exam Allergies Patient has no known allergies. Current Medications Current Outpatient Medications: acetaminophen (Tylenol) 500 mg tablet, Take by mouth every 6 hours if needed for mild pain (1 - 3)., Disp: , Rfl: buPROPion XL (Wellbutrin XL) 300 mg 24 hr tablet, Take 1 tablet (300 mg) by mouth once daily. Do not crush, chew, or split., Disp: , Rfl: ergocalciferol (Vitamin D2) 1.25 MG (81503 UT) capsule, Take 1 capsule (1,250 mcg) by mouth 1 (one) time per week., Disp: , Rfl: famotidine (Pepcid) 20 mg tablet, Take 1 tablet (20 mg) by mouth once daily., Disp: , Rfl: hydroxychloroquine (Plaquenil) 200 mg tablet, Take 1 tablet (200 mg) by mouth 2 times a day., Disp: , Rfl: PARoxetine (Paxil) 20 mg tablet, Take 1 tablet (20 mg) by mouth once daily in the morning., Disp: , Rfl: lisinopril 2.5 mg tablet, Take 1 tablet (2.5 mg) by mouth once daily., Disp: 90 tablet, Rfl: 3 warfarin (Coumadin) 2 mg tablet, Take 1 tablet (2 mg) by mouth. Take as directed per After Visit Summary., Disp: , Rfl: Assessment/Plan 1. Dilated aortic root (CMS-HCC) Basic Metabolic Panel lisinopril 2.[address] angio chest w and wo IV contrast Basic Metabolic Panel 2. Nonrheumatic aortic valve stenosis Follow Up In Cardiology Follow Up In Cardiology 3. History of DVT of lower extremity 4. Factor V Leiden (Multi) 5. Anticoagulated 6. BMI 27.0-27.9,adult Scribe Attestation By signing my name below, Itati Scribe attest that this documentation has been prepared under the direction and in the presence of Gely Snow MD. Provider Attestation - Scribe documentation All medical record entries made by the Scribe were at my direction and personally dictated by me. I have reviewed the chart and agree that the record accurately reflects my personal performance of the history, physical exam, discussion and plan. documented in this encounter [facility] Work Phone: 09-14-2024 Instructions Tati Luque LPN - 09/14/2024 1:30 PM EST Please bring all medicines, vitamins, and herbal supplements with you when you come to the office. Prescriptions will not be filled unless you are compliant with your follow up appointments or have a follow up appointment scheduled as per instruction of your physician. Refills should be requested at the time of your visit. CTA CHEST WITH CONTRAST FOR DILATED ROOT - 9 MONTHS LISINOPRIL 2.5 MG DAILY 9 MONTH FOLLOW UP WITH EKG documented in this encounter [facility] Work Phone: 09-06-2024 Telephone encounter Note Continue current dose recheck in 4 weeks [facility] 09-06-2024 Miscellaneous Notes Continue current dose recheck in 4 weeks Patient is present for a nurse visit. She takes Warfarin 2mg, 1 tablet daily. INR is 3.1. documented in this encounter [facility] 09-06-2024 Telephone encounter Note Patient is present for a nurse visit. She takes Warfarin 2mg, 1 tablet daily. INR is 3.1. [facility] 09-06-2024 History of Present illness Narrative Patient is present for a nurse visit. She takes Warfarin 2mg, 1 tablet daily. INR is 3.1. documented in this encounter [facility] 08-06-2024 Miscellaneous Notes Left message on voicemail to follow up in one year with Dr. Watson in [place]. Bright Cutter explained that August is available from 930 am to 330 pm. documented in this encounter [facility] 08-06-2024 Telephone encounter Note Left message on voicemail to follow up in one year with Dr. Watson in [place]. Bright Cutter explained that August is available from 930 am to 330 pm. [facility] 08-03-2024 Evaluation note Diagnosis Onset Date Resolution COVID acute August 03, 2024 11:30am Right rotator cuff tear arthropathy acute August 30 9:49am Right shoulder pain acute Janua ry 2024 9:49am Shoulder impingement syndrome acute August 30 9:49am Strain of right biceps acute Ja nuary 2024 9:49am [facility] Work Phone: 1(571) 202-702911-23-2024 Telephone encounter Note* Telephone Encounter - Radha Mckeon MD - 06/26/2024 1:51 PM EST [id number] Miscellaneous Notes* Telephone Encounter - Radha Mckeon MD - 06/26/2024 1:51 PM EST Approvals with refills [facility] [id number] History of Present illness Narrative* Radha Mckeon MD - 05/10/2024 2:20 PM EDT Images from the original note were not included. Rebecca Nugent is a 73 y.o. female presents with chief complaint of Follow-up HPI: HPI Patient is present for a 4 month follow up. Patient states that she has a right shoulder impingement and is scheduled to get an MRI tomorrow at [facility] in [place]. History of Present Illness The patient is a 73-year-old female who presents for evaluation of multiple medical concerns. She reports experiencing significant stress due to her youngest son and his girlfriend living with her, coupled with the recent departure of her other son and his family to [place]. She has been managing her stress through prayer and the support of friends. She is currently on Paxil 38 mg daily and took an additional dose last Friday when she was particularly upset. She is considering the need for an as-needed medication for such instances. She has a history of shoulder impingement and was undergoing therapy for it. However, she experienced a popping sensation above her elbow during a work- related lifting task, which has since caused her discomfort during therapy sessions. An MRI revealed a torn biceps muscle, and she is scheduled to see an medical transport specialist tomorrow. The injury has affected her ability to lift objects, such as grocery bags, and even causes pain when she throws a ball for her dog. Her INR level is slightly elevated at 1.8. She is currently taking Coumadin 2 mg daily, with an increased dose of 4 mg on Mondays and . She is considering adjusting her dosage schedule to Friday, Friday, and Friday for ease of recall. Her risk management specialist has recommended that she consult with an bender hand regarding her protein levels. She has previously seen endocrinologists in [facility], but is now seeking a new provider. She does not monitor her daily protein intake. She also has a history of kidney stones, whichare being managed by a urologist. Other than that, she is doing well. Her hip has been straightened out with cortisone injections. Her blood pressure is great, and her breathing has been okay. SUBJECTIVE: MEDICATIONS: Current Outpatient Medications Medication Instructions acetaminophen (TYLENOL) 650 mg, Oral, Every 6 hours PRN amoxicillin (Amoxil) 500 MG capsule buPROPion XL (Wellbutrin XL) 300 MG 24 hr tablet TAKE 1 TABLET BY MOUTH EVERY DAY IN THE MORNING FOR 90 DAYS cholecalciferol (Vitamin D-3) 50 MCG (2000 UT) tablet Oral, Daily, Four times a week ergocalciferol (Vitamin D2) 1.25 MG (13017 UT) capsule TAKE 1 CAPSULE BY MOUTH 5 TIMES PER WEEK famotidine (PEPCID) 20 mg, Oral, Nightly PRN fluticasone (Flonase) 50 MCG/ACT nasal spray 2 sprays, Nasal, Daily RT hydroxychloroquine (Plaquenil) 200 MG tablet Every 24 hours nitroglycerin (Rectiv) 0.4 % (w/w) rectal ointment Twice daily PARoxetine (PAXIL) 30 mg, Oral, Every morning silver sulfADIAZINE (Silvadene) 1 % cream Topical, Daily triamcinolone (Kenalog) 0.1 % cream Topical, 2 times daily warfarin (Coumadin) 2 MG tablet TAKE 1 TABLET BY MOUTH EVERY DAY. TAKE 1 MG ON TUESDAYS I have reviewed and reconciled the history and medication list with the patient today. REVIEW OF SYMPTOMS: Review of Systems Respiratory: Negative. Cardiovascular: Negative. OBJECTIVE: Visit Vitals LMP (LMP Unknown) OB Status Postmenopausal Smoking Status Never Visit Vitals BP 120/70 (BP Location: Left arm, Patient Position: Sitting, BP Cuff Size: Adult) Temp 97.4 F (Temporal) Wt 158 lb LMP (LMP Unknown) BMI 26.29 kg/m OB Status Postmenopausal Smoking Status Never BSA 1.81 m Physical Exam Constitutional: Appearance: Normal appearance. She is normal weight. HENT: Head: Normocephalic and atraumatic. Nose: Nose normal. Mouth/Throat: Mouth: Mucous membranes are moist. Eyes: Pupils: Pupils are equal, round, and reactive to light. Cardiovascular: Rate and Rhythm: Normal rate and regular rhythm. Heart sounds: No murmur heard. Pulmonary: Effort: Pulmonary effort is normal. Breath sounds: Normal breath sounds. No wheezing or rhonchi. Musculoskeletal: General: No swelling. Cervical back: Normal range of motion and neck supple. Right lower leg: No edema. Left lower leg: No edema. Skin: General: Skin is warm and dry. Findings: No rash. Neurological: Mental Status: She is alert and oriented to person, place, and time. Sensory: No sensory deficit. Gait: Gait normal. Psychiatric: Mood and Affect: Mood normal. Thought Content: Thought content normal. Judgment: Judgment normal. ASSESSMENT AND PLAN: Assessment/Plan Problem List Items Addressed This Visit Adrenal insufficiency (CMS/HCC) Age related osteoporosis (CMS/HCC) Autoimmune disease (CMS/HCC) Factor 5 Leiden mutation, heterozygous (CMS/HCC) Relevant Medications warfarin (Coumadin) 2 MG tablet Major depressive disorder, single episode, moderate (HCC) (CMS/HCC) Relevant Medications busPIRone (Buspar) 5 MG tablet Mild persistent asthma without complication ([facility]/HCC) Acute pain of right shoulder Other Visit Diagnoses Need for vaccination - Primary Relevant Orders Flu vaccine, high dose seasonal, preservative free (Completed) 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 Torn biceps muscle. She reported a pop above her elbow while at work, which was diagnosed as a torn biceps muscle by her physician's business support assistant. 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 She was advised to inform her orthopedist about her job requirements. 2. Stress. BuSpar was prescribed for use as needed when feeling overwhelmed. She was informed that it may cause fatigue and was advised to try it initially when she has no immediate commitments to gauge her body's response. 3. Low protein levels. A copy of her risk management specialist's note will be requested for further understanding of the concern. Shewas advised to ensure a minimum intake of 15 g of protein with each meal, ideally 3 to 4 times a day, to improve her wellbeing and energy levels. Recommendations included consuming hard-boiled eggs, chicken breasts, and tuna packets. 4. Elevated INR. Her INR was 1.8, indicating a thicker blood consistency. Her Coumadin dosage was adjusted to 4 mg three days a week (Friday, Friday, and Friday) to achieve better control. 5. Medication Management. She is currently on the maximum dose of Paxil (38 mg daily). She took an extra dose last Friday when feeling upset. No changes to her Paxil regimen were made. 6. Health Maintenance. She received her flu shot during the visit. [facility] [id number] History of Present illness Narrative* Gely Snow MD - 02/12/2024 2:10 PM EDT Cardiology Consultation- New Consult Reason for referral: Cardiac consultation requested for evaluation for preoperative risk assessmentand cardiac murmur HPI: Rebecca Nugent is a 73 y.o. female who was sent by the anesthesiologist for preoperative riskassessment due to cardiac murmur. However the patient reported that she did pass her kidney stone and she is no longer scheduled for any procedure. The patient reported history of recurrent DVT and factor Leiden abnormality requiring long-term anticoagulation. She was seen by hematology in the past. She reported also history of lung nodule and pulmonary sarcoidosis and she followed by the pulmonary service. The patient was observed to have a cardiac murmur. She did undergo previous cardiac workup. Her echocardiogram recently showed preserved LV systolic function and mild aortic stenosis. Aortic root by echo measured at 3.7 cm. The patient also underwent myocardial perfusion study which showed no evidence of ischemia or myocardial infarction. Patient is very active. She denies any active cardiac complaint of chest pain, palpitation, lightheadedness, dizziness or syncope. Several CT scan in the chart over the last few years noted. Her CT scan suggested her thoracic aorta distal to the pulmonary artery bifurcation measured at 4 cm. This measured has not changed over the last several year. Based on my review of several CT scan. Assessment 1. Mild aortic stenosis 2. Mildly dilated aortic root and thoracic aorta distal to the pulmonic artery bifurcation at [address] scan 3. Pulmonary sarcoidosis 4. History of hypercoagulable state reported to be factor Leiden abnormality on long-term anticoagulation 5. Mild resting sinus bradycardia likely due to good cardiopulmonary conditioning Plan 1. I discussed with the patient the natural history of mild aortic stenosis and mildly dilated thoracic aorta. I advised serial clinical evaluation considering to repeat her CT scan every few years 2. The patient lipid profile showed she had excellent lipid profile 3. Patient is not a good candidate for beta-indy due to resting sinus bradycardia I recommended trial for low-dose FORTINO inhibitor in form of lisinopril 2.5 mg daily 4. I advised the patient to investigate if she can afford Xarelto 10 mg once daily or Eliquis 2.5 mg twice daily for DVT prevention rather than long-term anticoagulation 5. Will see her back in 6-month in follow-up 6. Patient no longer needs a preoperative risk assessment considering she passed her kidney stone however. If surgery or procedures needed the patient is acceptable risk cardiac zeng and can hold heranticoagulation for 3 days prior to procedure Past Medical History: She has no past medical history on file. Surgical History: She has a past surgical history that includes section, classic; Dilation and curettage of uterus; Gallbladder surgery; Heel spur surgery; Knee surgery; Appendectomy; Biliopancreatic Diversion; Toe Surgery; Finger surgery (Right); and Knee surgery (Left). Family History: Family History Problem Relation Name Age of Onset Ovarian cancer Mother Rheum arthritis Mother Lung cancer Father Alzheimer's disease Father Alzheimer's disease Sister 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: 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 Tobacco Use Smoking status: Never Smokeless tobacco: Never Substance Use Topics Alcohol use: Yes Allergies: Patient has no known allergies. Current Medications: Current Outpatient Medications: acetaminophen (Tylenol) 500 mg tablet, Take by mouth every 6 hours if needed for mild pain (1 - 3)., Disp: , Rfl: buPROPion XL (Wellbutrin XL) 300 mg 24 hr tablet, Take 1 tablet (300 mg) by mouth once daily. Do not crush, chew, or split., Disp: , Rfl: ergocalciferol (Vitamin D2) 1.25 MG (02257 UT) capsule, Take 1 capsule (1,250 mcg) by mouth 1 (one)time per week., Disp: , Rfl: famotidine (Pepcid) 20 mg tablet, Take 1 tablet (20 mg) by mouth once daily., Disp: , Rfl: hydroxychloroquine (Plaquenil) 200 mg tablet, Take 1 tablet (200 mg) by mouth 2 times a day., Disp:, Rfl: PARoxetine (Paxil) 20 mg tablet, Take 1 tablet (20 mg) by mouth once daily in the morning., Disp: ,Rfl: warfarin (Coumadin) 2 mg tablet, Take 1 tablet (2 mg) by mouth. Take as directed per After Visit Summary., Disp: , Rfl: Vitals: Vitals: 02/12/24 1426 02/12/24 1427 BP: 116/64 112/62 BP Location: Right arm Left arm Patient Position: Sitting Sitting Pulse: 55 Weight: 72.6 kg (160 lb) Height: 1.626 m (5' 4 ) EKG done in office today Review of Systems Neurological: Positive for dizziness. All other systems reviewed and are negative. Objective Physical Exam Constitutional: Appearance: Normal appearance. HENT: Nose: Nose normal. Neck: Vascular: No carotid bruit. Cardiovascular: Rate and Rhythm: Normal rate. Pulses: Normal pulses. Heart sounds: Murmur heard. Systolic murmur is present with a grade of 2/6. Pulmonary: Effort: Pulmonary effort is normal. Abdominal: General: Bowel sounds are normal. Palpations: Abdomen is soft. Musculoskeletal: General: Normal range of motion. Cervical back: Normal range of motion. Right lower leg: No edema. Left lower leg: No edema. Skin: General: Skin is warm and dry. Neurological: General: No focal deficit present. Mental Status: She is alert. Psychiatric: Mood and Affect: Mood normal. Behavior: Behavior normal. Thought Content: Thought content normal. Judgment: Judgment normal. Assessment and Plan: 1. Nonrheumatic aortic valve stenosis Follow Up In Cardiology ECG 12 Lead 2. Dilated aortic root (CMS-HCC) 3. History of DVT of lower extremity 4. BMI 27.0-27.9,adult 5. Anticoagulated Scribe Attestation By signing my name below, ILilliana LPN, Scribe attest that this documentation has been prepared under the direction and in the presence of MD Robert. Provider Attestation - Scribe documentation All medical record entries made by the Scribe were at my direction and personally dictated by me. Ihave reviewed the chart and agree that the record accurately reflects my personal performance of the history, physical exam, discussion and plan. [facility] Phone: [phone]) 777-839807-11-2024 Instructions* Patient Instructions* Lilliana Dash LPN - 02/12/2024 2:10 PM EDT Please bring all medicines, vitamins, and herbal supplements with you when you come to the office. Prescriptions will not be filled unless you are compliant with your follow up appointments or have a follow up appointment scheduled as per instruction of your physician. Refills should be requested at the time of your visit. BMI was above normal measurement. Current weight: 72.6 kg (160 lb) Weight change since last visit (-) denotes wt loss 160 lbs Weight loss needed to achieve BMI 25: 14.7 Lbs Weight loss needed to achieve BMI 30: -14.4 Lbs Provided instructions on dietary changes Provided instructions on exercise. documented in this [facility] Work Phone: 1(668) 102-941905-08-2024 Hospital Discharge instructions Patient Education 12/10/2023 14:54:55 Kidney Stones Kidney Stones Kidney stones are solid, rock-like deposits that form inside of the kidneys. The kidneys are a pairof organs that make urine. A kidney stone may form in a kidney and move into other parts of the urinary tract, including the tubes that connect the kidneys to the bladder (ureters), the bladder, and the tube that carries urine out of the body (urethra). As the stone moves through these areas, it can cause intense pain and block the flow of urine. Kidney stones are created when high levels of certain minerals are found in the urine. The stones are usually passed out of the body through urination, but in some cases, medical treatment may be needed to remove them. What are the causes? Kidney stones may be caused by: A condition in which certain glands produce too much parathyroid hormone (primary hyperparathyroidism), which causes too much calcium buildup in the blood. A buildup of uric acid crystals in the bladder (hyperuricosuria). Uric acid is a chemical that the body produces when you eat certain foods. It usually leaves the body in the urine. Narrowing (stricture) of one or both of the ureters. A kidney blockage that is present at (congenital obstruction). Past surgery on the kidney or the ureters. What increases the risk? The following factors may make you more likely to develop this condition: Having had a kidney stone in the past. Having a family history of kidney stones. Not drinking enough water. Eating a diet that is high in protein, salt (sodium), or sugar. Being overweight or obese. What are the signs or symptoms? Symptoms of a kidney stone may include: Pain in the side of the abdomen, right below the ribs (flank pain). Pain usually spreads (radiates)to the groin. Needing to urinate often or urgently. Painful urination. Blood in the urine (hematuria). Nausea. Vomiting. Fever and chills. How is this diagnosed? This condition may be diagnosed based on: Your symptoms and medical history. A physical exam. Blood tests. Urine tests. These may be done before and after the stone passes out of your body through urination. Imaging tests, such as a CT scan, abdominal X-ray, or ultrasound. A procedure to examine the inside of the bladder (cystoscopy). How is this treated? Treatment for kidney stones depends on the size, location, and makeup of the stones. Kidney stones will often pass out of the body through urination. You may need to: Increase your fluid intake to help pass the stone. In some cases, you may be given fluids through an IV and may need to be monitored in the hospital. Take medicine for pain. Make changes in your diet to help prevent kidney stones from coming back. Sometimes, procedures are needed to remove a kidney stone. This may involve: A procedure to break up kidney stones using: ?A focused beam of light (laser therapy). ?Shock waves (extracorporeal shock wave lithotripsy). Surgery to remove kidney stones. This may be needed if you have severe pain or have stones that block your urinary tract. Follow these instructions at home: Medicines Take [id number] and prescription medicines only as told by your health care provider. Ask your health care provider if the medicine prescribed to you requires you to avoid driving or using heavy machinery. Eating and drinking Drink enough fluid to keep your urine pale yellow. You may be instructed to drink at least 8 10 glasses of water each day. This will help you pass the kidney stone. If directed, change your diet. This may include: ?Limiting how much sodium you eat. ?Eating more fruits and vegetables. ?Limiting how much animal protein you eat. Animal proteins include red meat, poultry, fish, and eggs. ?Eating a normal amount of calcium (1,000 1,300 mg per day). Follow instructions from your health care provider about eating or drinking restrictions. General instructions Collect urine samples as told by your health care provider. You may need to collect a urine sample: ?24 hours after you pass the stone. ?8 12 weeks after you pass the kidney stone, and every 6 12 months after that. Strain your urine every time you urinate, for as long as directed. Use the strainer that your health care provider recommends. Do not throw out the kidney stone after passing it. Keep the stone so it can be tested by your health care provider. Testing the makeup of your kidney stone may help prevent you from getting kidney stones in the future. Keep all follow-up visits. You may need follow-up X-rays or ultrasounds to make sure that your stone has passed. How is this prevented? To prevent another kidney stone: Drink enough fluid to keep your urine pale yellow. This is the best way to prevent kidney stones. Eat a healthy diet. Follow recommendations from your health care provider about foods to avoid. Recommendations vary depending on the type of kidney stone that you have. You may be instructed to eat a low-protein diet. Maintain a healthy weight. Where to find more information National Kidney Foundation (NKF): www.kidney.org Urology Care Foundation (F): www.urologyhealth.org Contact a health care provider if: You have pain that gets worse or does not get better with medicine. Get help right away if: You have a fever or chills. You develop severe pain. You develop new abdominal pain. You faint. You are unable to urinate. Summary Kidney stones are solid, rock-like deposits that form inside of the kidneys. Kidney stones can cause nausea, vomiting, blood in the urine, abdominal pain, and the urge to urinate often. Treatment for kidney stones depends on the size, location, and makeup of the stones. Kidney stones will often pass out of the body through urination. Kidney stones can be prevented by drinking enough fluids, eating a healthy diet, and maintaining a healthy weight. This information is not intended to replace advice given to you by your health care provider. Make sure you discuss any questions you have with your health care provider. Document Revised: 10/30/2022 Document Reviewed: 10/30/2022 [employer] Patient Education 2022 [employer]. Follow Up Care 12/05/2023 12:52:02 With:SUZY MARTINEZ, Jasper Caicedo, LYNDA Address: [facility] [address] , [place] [address]- When: Unknown [facility] 04-29-2024 Hospital Discharge instructions Additional Instructions Please return to emergency department for any new or worrisome symptoms including any return of flank pain, chest pain, shortness of breath, numbness, weakness, tingling, difficulty urinating or fevers. You should follow-up soon as possible with urology as directed as well as your family physician within the next 1 to 2 days. Strain all urine as directed using the a urinary strainer that was provided to you today. You may take Zofran as needed for any nausea as prescribed. You may also take Tylenol as needed for mild pain and oxycodone as needed as prescribed for worse pain. You were recently seen in the emergency department on a prior visit and diagnosed with a aortic aneurysm and should return for any return of flank pain, arm pain, numbness, weakness, or tingling, as you may need further workup on an emergent basis. Given your urinary symptoms and pain similar to prior kidney stones with kidney stone seen today on CT and your pain resolved, it is less likely that you should need emergent repeat images of your aneurysm but please have a low threshold to return to the emergency department if your pain returns, as your may require further workup.[facility] Work Phone: [phone] Telephone encounter Note* Telephone Encounter - Sofie Shipley - 09/16/2023 4:58 PM EST Pt would like a callback about her cat scan and her echo, [facility] called her to get them scheduled , she is scheduled for a cat scan, and wonders why [facility] is calling her. [facility] [id number] Miscellaneous Notes* Telephone Encounter - Sofie Shipley - 09/16/2023 4:58 PM EST Pt would like a callback about her cat scan and her echo, [facility] called her to get them scheduled , she is scheduled for a cat scan, and wonders why [facility] is calling her. documented in this encounterSaint Francis Medical [id number] Telephone encounter Note* Telephone Encounter - Radha Mckeon MD - 09/15/2023 9:55 AM EST Approvals with refills [facility] [id number] Miscellaneous Notes* Telephone Encounter - Radha Mckeon MD - 09/15/2023 9:55 AM EST Approvals with refills documented in this encounterSaint Francis Medical [id number] History of Present illness Narrative* Radha Mckeon MD - 09/09/2023 2:00 PM EST Rebecca Nugent is a 72 y.o. female presents with chief complaint of Medicare Annual Wellness Visit Subsequent HPI: HPI Over the past 2 weeks, how often have you been bothered by any of the following problems? Little interest or pleasure in doing things: More than half the days Feeling down, depressed, or hopeless: More than half the days Patient Health Questionnaire-2 Score: 4 Over the past 2 weeks, how often have you been bothered by any of the following problems? Trouble falling or staying asleep, or sleeping too much: Not at all Feeling tired or having little energy: Not at all Poor appetite or overeating: Several days Feeling bad about yourself - or that you are a failure or have let yourself or your family down: Several days Trouble concentrating on things, such as reading the newspaper or watching television: Not at all Moving or speaking so slowly that other people could have noticed? Or the opposite - being so fidgety or restless that you have been moving around a lot more than usual.: Several days Thoughts that you would be better off or hurting yourself in some way: Several days Patient Health Questionnaire-9 Score: 8 Brown Fall Risk History of Falling, Immediate or Within 3 Months: No Secondary Diagnosis: No Ambulatory Aid: Walks without aid/bedrest/nurse assist Intravenous Therapy/Heparin Lock: No Gait/Transferring: Normal/bedrest/immobile Mental Status: Oriented to own ability Brown Fall Risk Score: 0 Health Risk Assessment Form Do you need help eating, bathing, using the toilet, dressing, or getting around your home?: No Can you prepare your own meals?: Yes Can you do your own housework without help?: Yes Can you shop for groceries or clothes without help?: Yes Do you exercise for about 20 minutes 3 or more days a week?: Yes How confident are you that you can control and manage most of your health problems?: Very confident Can you mange your money, credit cards and accounts, pay bills and taxes?: Yes Vision Screening: Yes, 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 Hearing Screening: Yes, no gross abnormalities Cognitive Screening Self Assessment: No overt cognitive deficiency is apparent by direct observation Three Word Registration: Apple, Watch, Casi Clock Drawing: Normal Clock - 2 Three Word Recall: All 3 words correct - 3 Total Score (0-5 Points): 5 Pain Assessment Pain Score: 0 - No pain Pending ent surgery 09/29/23 Pending osteoporosis infusion per dr angel SUBJECTIVE: MEDICATIONS: Current Outpatient Medications Medication Instructions buPROPion XL (Wellbutrin XL) 300 MG 24 hr tablet TAKE 1 TABLET BY MOUTH EVERY DAY IN THE MORNING FOR 90 DAYS Ergocalciferol 1.25 mg, Oral ferrous sulfate 325 mg, Oral, Daily with breakfast fluticasone (Flonase) 50 MCG/ACT nasal spray 2 sprays, Nasal, Daily RT hydroxychloroquine (Plaquenil) 200 MG tablet Every 24 hours omeprazole (PRILOSEC) 40 mg, Oral PARoxetine (PAXIL) 30 mg, Oral, Every morning warfarin (Coumadin) 2 MG tablet TAKE 1 TABLET BY MOUTH EVERY DAY. TAKE 1 MG ON TUESDAYS REVIEW OF SYMPTOMS: Review of Systems Constitutional: Negative. Respiratory: Negative. Cardiovascular: Negative. Gastrointestinal: Negative. Musculoskeletal: Negative. Neurological: Negative. Psychiatric/Behavioral: Negative. OBJECTIVE: Visit Vitals BP 130/64 (BP Location: Right arm, Patient Position: Sitting, BP Cuff Size: Small adult) Pulse 52 Resp 16 Ht 5' 4 Wt 170 lb BMI 29.18 kg/m Smoking Status Never BSA 1.87 m Physical Exam Constitutional: Appearance: Normal appearance. She is normal weight. HENT: Head: Normocephalic and atraumatic. Nose: Nose normal. Mouth/Throat: Mouth: Mucous membranes are moist. Eyes: Pupils: Pupils are equal, round, and reactive to light. Neck: Comments: Left submandibular mass Cardiovascular: Rate and Rhythm: Normal rate and regular rhythm. Heart sounds: No murmur heard. Pulmonary: Effort: Pulmonary effort is normal. Breath sounds: Normal breath sounds. No wheezing or rhonchi. Musculoskeletal: General: No swelling. Cervical back: Normal range of motion and neck supple. Right lower leg: No edema. Left lower leg: No edema. Skin: General: Skin is warm and dry. Findings: No rash. Neurological: Mental Status: She is alert and oriented to person, place, and time. Sensory: No sensory deficit. Gait: Gait normal. Psychiatric: Mood and Affect: Mood normal. Thought Content: Thought content normal. Judgment: Judgment normal. ASSESSMENT AND PLAN: Assessment/Plan Problem List Items Addressed This Visit Nervous PMR (polymyalgia rheumatica) (CMS/HCC) Remission Respiratory Mild persistent asthma without complication (CMS/HCC) stable Circulatory Thoracic ascending aortic aneurysm (CMS/HCC) Due for monitoring Ct ordered Digestive Adrenal insufficiency (CMS/HCC) Musculoskeletal Age related osteoporosis (CMS/HCC) Relevant Orders PTH, intact Comprehensive metabolic panel CBC and differential Vitamin D 25 hydroxy Endocrine/Metabolic Secondary hyperparathyroidism (CMS/HCC) Relevant Orders PTH, intact Hematologic Factor 5 Leiden mutation, heterozygous (CMS/HCC) Cleared to hold coumadin 7 days but will need bridge therapy Lymphopenia Other Autoimmune disease ([facility]) Per dr williamson Chronic fatigue Major depressive disorder, single episode, moderate (HCC) (CMS/[facility]) stable Other Visit Diagnoses Routine general medical examination at a health care facility - Primary 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 Relevant Orders POCT Protime-INR, fingerstick docked device (Completed) Systolic murmur Request last echo from [facility] As of your medicare wellness visit , the medical team reviewed your chart and chronic problems and treatment. Your information regarding healthy diet, activity, immunizations, depression screening, advance directives , activities of daily living medications, cognitive screening and risk factors fordisease were reviewed or addressed documented in this encounterSaint Francis Medical [id number] [facility] Evaluation note* Encounter Date Diagnosis Assessment Notes Treatment Notes Treatment Clinical Notes Nov, Trochanteric bursitis of left hip (ICD-10 - M70.62) Patient voices minimal complaints of pain at this time. She attributes this to a recent left trochanteric bursa injection. We will continue to monitor and proceed with future treatment to the area as needed. Patient was encouraged to continue with at home stretching/ exercise. We will follow up as needed. Anatomy discussed in detail with patient in regards to patients condition. Overall, patient believes their pain is reasonably well controlled and she is in agreement with our treatment plan. Nov, Iliopsoas bursitis of left hip (ICD-10 - M70.72) Patient continues to benefit from a previous left iliopsoas bursa injection. We will continue to monitor her symptoms in this region. She was instructed to call our office should her pain progress and we will proceed with a repeat injection. Anatomy of spine discussed in detail with patient in regard to patients condition.Overall, patient believes their pain is reasonably well controlled, and she is in agreement with our treatment plan. Nov, Chronic pain (ICD-10 - G89.29) Nov, Other Above note writ ten by Vic Alexander MA, Winding Inspector And Tester. Edited and approved by Dr. Venkat Miller MD. [employer] Other 03-30-2023 Evaluation note* Encounter Date Diagnosis Assessment Notes Treatment Notes Treatment Clinical Notes Oct, Trochanteric bursitis of left hip (ICD-10 - M70.62) Patients primary complaint today is returning pain over the outide of the hip. She shows noteable tenderness over the trochanteric bursa upon exam. Based on previous positive results, as well as location of pain and exam findings, patient is a candidate for a repeat left trochanteric bursa injection which we will proceed with today in the office. Risks and benefits of procedure explained to patient; patient verbalizes understanding. Patient tolerated well. Oct, Iliopsoas bursitis of left hip (ICD-10 - M70.72) Patient continues to benefit from a previous left iliopsoas bursa injection. We will continue to monitor her symptoms in this region. She was instructed to call our office should her pain progress and we will proceed with a repeat injection. Anatomy of spine discussed in detail with patient in regard to patients condition.Overall, patient believes their pain is reasonably well controlled, and she is in agreement with our treatment plan. Oct, Hip pain (ICD-10 - M25.559) Oct, Chronic pain (ICD-10 - G89.29) Oct, Other Above note writ ten by Vic Alexander MA, Winding Inspector And Tester. Edited and approved by Dr. Venkat Miller MD. [employer] Other 02-27-2023 NoteHISTORY: Bone density screening. COMPARISON: None. PROCEDURE: Imaging of the lumbar spine and bilateral hips was obtained for bone density evaluation. FINDINGS: REGION BMD (g/cm??) YOUNG ADULT T-SCORE AGE-MATCHED Z-SCORE LEFT NECK 0.568 -2.5 -0.7 RIGHT NECK 0.623 -2.0 -0.3 LUMBAR 0.830 -2.0 0.1 The mean BMD and corresponding T-score listed above indicate: Osteopenia and places the patient at a mild to moderate increased risk for fracture. There may be a future risk of developing osteoporosis. Recommend follow-up exam in 1 year, sooner as clinically necessary. Comment: The T-score is the primary focus of the interpretation of a patient???s bone mineral density measurement. The T-score is the number of standard deviations and individual is above or below the mean value for a young female having normal bone mass. The WHO defines osteoporosis based on the T-score value: +1.0 to -0.9 : Normal bone mass -1.0 to -2.5 : Osteopenia and thus may be at future risk of fracture. -2.6 to -5.0 : Osteoporosis and at significantly increased risk of fracture. IMPRESSION: OSTEOPENIA : ONE YEAR FOLLOW-UP RECOMMENDED Report reported and signed by Luisito Jade on 09/30/2022 [id number]09-22-2022 Progress note Author Laina Morales [facility] April 25, 2022 4:18pm Note Date/Time April 25, 2022 2:03pm [facility] at [address] [address] Hem/Onc Follow Up Note - OP Signed Patient: Rebecca Herrera MR#: [id number] : 1950 Acct:[id number] Age/Sex: 71 / F Type: REG RCR Copies to: Radha Mckeon MD~ Subjective Date/Time of Service: Date of Service: 04/25/2022 Time of Service: 13:57 Chief Complaint: Patient is here for a one year follow up with labs for review. No concerns voiced. HPI: 04/25/2022: Interval history: Remy returns for a scheduled yearly follow-up. She has not received oral iron since December 2017. Clinically, she feels good. She is sometimes tired; but she feels this is expected fatigue as she is a very active person in general. She denies any changes in fatigue; chest pain, shortness of breath, palpitations, exertional dyspnea; pica or leg cramping. Shedenies melena, hematochezia or bright red blood per rectum. She is taking ferrous sulfate once daily; overall this is well tolerated. She has history of gastric bypass surgery. PAST MEDICAL HISTORY: Clinical diagnosis of sarcoidosis; Morbid obesity status post gastric bypass in 2000; Chronic arthritis; Sleep apnea on CPAP at night; Panic disorder. 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 Never smoker. - Summary of Therapies Summary of Therapies: For iron deficiency anemia: IV Ferumoxytol 510mg x2 01/2017; 12/2017 -Oral Ferrous sulfate 325mg daily. For lymphopenia: Previously on PJP prophylaxis per Dr. Diego, discontinued in 2017 Subjective/ROS - Narrative: CONSTITUTIONAL: No weight loss, fever, chills, fatigue stable. CARDIOVASCULAR: No chest pain, chest pressure or chest discomfort. No palpitations or edema. RESPIRATORY: No shortness of breath, cough or hemoptysis. GASTROINTESTINAL: No dysphagia, nausea, vomiting or diarrhea. No abdominal pain,melena, hematochezia. GENITOURINARY: No dysuria. NEUROLOGICAL: No headache. MUSCULOSKELETAL: Positive for knee pain. Home Medications & Allergies Allergies No Known Allergies Allergy (Verified 04/25/22 12:56) Home Medications acetaminophen 325 mg tablet (Tylenol) 2 tab PO DAILY PRN Pain 05/15/17 [History Confirmed 04/25/22] albuterol sulfate 90 mcg/actuation aerosol inhaler 1 puff inhalation Q4-6H PRN Shortness Of Breath Or Wheezing 05/15/17 [History Confirmed 04/25/22] multivitamin 1 tab PO DAILY 05/15/17 [History Confirmed 04/25/22] paroxetine HCl 20 mg tablet (Paxil) 30 mg PO DAILY 05/15/17 [History Confirmed 04/25/22] cholecalciferol (vitamin D3) 25 mcg (1,000 unit) capsule (Vitamin D3) 100,000 unit PO DIRECTED 06/24/17 [History Confirmed 04/25/22] zinc amino acid chelate 50 mg tablet 50 mg PO DAILY 06/24/17 [History Confirmed 04/25/22] ferrous sulfate 325 mg (65 mg iron) tablet (iron) 325 mg PO DAILY 07/01/18 [History Confirmed 04/25/22] hydroxychloroquine 200 mg tablet (Plaquenil) 200 mg PO BID 12/30/18 [History Confirmed 04/25/22] bupropion HCl 150 mg 24 hr tablet, extended release 150 mg PO QAM 04/25/20 [History Confirmed 04/25/22] famotidine 20 mg tablet 20 mg PO QHS 04/25/20 [History Confirmed 04/25/22] warfarin 2 mg tablet 2 mg PO DAILY 04/24/21 [History Confirmed 04/25/22] Objective - Resuscitation Status Resuscitation Status: Full Code - Height/Weight Height/Weight: Height 5 ft 4 in Weight 75.841 kg - Vital Signs Vital Signs: 04/25/22 12:57 Temperature 98 F Pulse Rate [Right Brachial] 50 L Respiratory Rate 20 Blood Pressure [Left Arm] 123/70 02 Sat by Pulse Oximetry 99 Oxygen Delivery Method Room Air Physical Exam Narrative: ECO Pain: 0/10 GENERAL APPEARANCE: In no acute distress. HEENT: Mucosa pink/moist; no lesions or exudate. No jaundice or lymphadenopathy. Lungs: Clear to auscultation bilaterally; no wheezes or crackles. Normal respiratory effort. ABDOMEN: soft, non tender. EXTREMITIES: Warm and dry; No edema/clubbing or cyanosis NEUROLOGIC: Grossly intact. - ECOG Performance Status ECOG Score: 0 Results - Labs Labs: Diagram of Most Recent CBC and CMP 04/18/22 11:32 Labs - Last 7 Days 04/18/22 11:32: Iron 81, TIBC 461 H, Iron Saturation 17.6 L, Transferrin 329 Assessment and Plan (1) Iron deficiency anemia Qualifiers: Iron deficiency anemia type: chronic blood loss Qualified Code(s): D50.0 - Iron deficiency anemia secondary to blood loss (chronic) (1) Iron deficiency anemia Qualifiers: Iron deficiency anemia type: chronic blood loss Qualified Code(s): D50.0 - Iron deficiency anemia secondary to blood loss (chronic) Iron deficiency anemia, in the setting of gastric bypass and chronic anticoagulation; repeat EGD/colonoscopy on 02/16/[address] Alvares at [facility] in [place], no concerns of malignancy. -Etiology including malabsorption versus blood loss. -She now tolerates oral iron (Ferrous Sulfate) at night with manageable side effects: diarrhea and irritation. -Hgb remains stable at 13.0, ferritin slightly low - 13; iron saturation 17%. Clinically, she feels pretty good. Denies any significant or worsening fatigue; chest pain, shortness of breath, cough, dyspnea on exertion, leg cramping or PICA. We discussed increasing her ferrous sulfate to twice daily; if she is able to tolerate and adding Vitamin C supplementation prior to dosage to increase absorption. We will have her return in 1 year with repeat CBC, iron studies, and ferritin;sooner with any new or worsening symptoms. (2) Lymphopenia Lymphopenia since 05/2014, associated with retroperitoneal and mediastinal lymphadenopathy. -No history of frequent bacterial infections; HIV screen negative. -Treated with a course of Prednisone for autoimmune disease. Off Prednisone since August 2017, doing well, no infection off PJP prolylaxis by immunology. -Presentation was blurry vision associated with night sweats, placed on Prednisone. Night sweats has resolved. 06/18/2017: WBC 6.6, Hgb 13.6, MCV 90.4, platelets 201, lymphocyte 0.4, 6.2% 09/23/2016: WBC 13.6, Hgb 9.6, MCV 71.3, platelets 319, lymphocyte 0.3, 2.2% 04/02/2015: WBC 13.8, Hgb 11.2, MCV 81.3, platelets 224,lymphocyte 2% 05/26/2014: WBC 8.4, Hgb 11.0, MCV 84.5, platelets 183, lymphocyte 0.3, 4% 10/19/2013: WBC 4.2, Hgb 11.7, MCV 85.9, platelets 233, lymphocyte 0.8, 18.1% 07/20/2012: WBC 6.4, Hgb 12.6, MCV 85.1, platelets 225, lymphocyte 1.3, 21%. 03/06/2012: WBC 5.4, Hgb 12.2, MCV 92.2, platelets 173, lymphocytes 22.2% 12/12/2011: WBC 6.5, Hgb 13.1, MCV 92.3, platelets 205, lymphocytes 2.2, 34.2% (3) Mediastinal lymphadenopathy She had bronchoscopy/EBUS biopsy by pulmonology in [place], per patient, nondiagnostic. -[place] to be sarcoidosis, following pulmonology (4) History of deep venous thrombosis (DVT) of distal vein of right lower extremity History of right lower extremity DVT 1996, likely unprovoked, associated with Estrogen use. She has Factor V Leiden heterozygosity. -She has a [place] filter in place is no planned to retrieve. She remains on anticoagulation with Warfarin. Low complexity encounter, time spent 20 min. (2) Lymphopenia Stable (3) Mediastinal lymphadenopathy (4) History of deep venous thrombosis (DVT) of distal vein of right lower extremity - Time with Patient Time Spent with Patient (Follow Up Visit): 25 minutes Coordination of Care & Counseling Time: Greater than 50% of time spent with patient was for coordination of care (as documented) and [id number] counseling of patient and/or family. Dictated By: Laina Morales APRN DD/ [id number] Signed By: <Electronically signed by ODALYS Morales> 04/25/[address] [facility] Work Phone: [phone]) 233-523904-18-2022 Evaluation note* Encounter Date Diagnosis Assessment Notes Treatment Notes Treatment Clinical Notes Nov, Trochanteric bursitis of left hip (ICD-10 - M70.62) Patient is voicing minimal complaints of pain at this time. She attributes this to a recent left trochanteric bursa injection. We will continue to monitor her symptoms in this region. Anatomy of spine discussed in detail with patient in regard to patients condition. In the future if the pain persists, we can consider repeat injections. Overall, patient believes their pain is reasonably well controlled, and she is in agreement with our treatment plan. We will follow up with her on an as needed basis. Nov, Iliopsoas bursitis of left hip (ICD-10 - M70.72) Patient is voicing minimal complaints of pain at this time. She attributes this to a recent left iliopsoas bursa injection. We will continue to monitor her symptoms in this region. Anatomy of spine discussed in detail with patient in regard to patients condition. In the future if the pain persists, we can consider repeat injections. Overall, patient believes their pain is reasonably well controlled, and she is in agreement with our treatment plan. Nov, Hip pain (ICD-10 - M25.559) Nov, Chronic pain (ICD-10 - G89.29) Nov, Other Above note writ ten by Laura Yao LPN, Winding Inspector And Tester. Edited and approved by Dr. Venkat Miller MD. [facility] Other 03-21-2022 Evaluation note* Encounter Date Diagnosis Assessment Notes Treatment Notes Treatment Clinical Notes Oct, Trochanteric bursitis of left hip (ICD-10 - M70.62) We discussed treatment options for the patient's persistent hip pain. She shows notable tenderness upon exam. She has failed multiple conservative measures and would be a reasonable candidate for left trochanteric bursa injection under ultrasound guidance, which we will proceed with today in the office. Risks and benefits of procedure explained to patient; patient verbalizes understanding. Patient tolerated well. We will follow up with patient in four weeks, sooner if needed. Oct, Iliopsoas bursitis of left hip (ICD-10 - M70.72) We discussed treatment options for the patient's persistent hip and groin pain. She has failed multiple conservative measures. Given MRI and exam findings I agree it would now be reasonable to proceed with a left iliopsoas bursa injection under ultrasound guidance, which we will proceed with today in the office. Risks and benefits of procedure explained to patient; patient verbalizes understanding. Patient tolerated well. Additionally,patiefra nt was provided with home excersies today. We will follow up with patient in four weeks, sooner if needed. Oct, Hip pain (ICD-10 - M25.559) Oct, Chronic pain (ICD-10 - G89.29) Oct, Other Above note writ ten by Laura Yao LPN, Winding Inspector And Tester. Edited and approved by Dr. Venkat Miller MD. Medical decision making shows a new problem to me with further workup planned or suggested with the potential for extensive treatment options that were considered with the most applicable given this patient's situation as noted above. Treatment options considered include a combination of physical therapy approaches, pharmacologic management, and interventional procedures. Those most applicable to the patient were discussed at this time. Risk of complications and/or morbidity and mortality is high given that acute and chronic pain poses a threat to life and bodily function if undertreated, poorly treated or with failure to maintain adequate treatment and timely followup. Given the serious and fluctuating nature of pain with extensive consideration for whenever pain changes, there always remains the possibility of prolonged functional impairment requiring constant patient reassessment and high-level medical decision making. The amount and complexity of data reviewed is high given that patient labs, radiology reports, and other test were obtained, reviewed and summarized as applicable from the physician portal and/or outside medical records. Pertinent positive and negative findings were considered in medical decision-making. [facility] Other 03-04-2022 Evaluation note* Encounter Date Diagnosis Assessment Notes Treatment Notes Treatment Clinical Notes Oct, Strain of left quadriceps muscle, initial encounter (ICD-10 - S76.112A) low suspicion for bony injury. advised conservative tx at this time. rx sent, take as directed. RICE therapy. otc tylenol prn for breakthrough pain. warm compresses as directed. immediate eval if warning symptoms of intractable pain or neurovascular compromise. otherwise follow up with PCP if new/worsening symptoms. [facility] Other 11-14-2021 Evaluation note* Encounter Date Diagnosis Assessment Notes Treatment Notes Treatment Clinical Notes Jun, Torticollis, acute (ICD-10 - M43.6) Continue your home medications as prescribed. Take the prednisone as prescribed until gone. Take the Flexeril as prescribed as needed for neck stiffness and pain. Use the lidocaine patches as prescribed as needed for pain. Follow-up with your family doctor if no improvement in 2 to 3 days [facility] Other 09-21-2021 Progress note Author Dilshad Escobedo [facility] April 24, 2021 12:03pm Note Date/Time April 24, 2021 12:02pm [facility] at [address] [address] Hem/Onc Follow Up Note - OP Signed Patient: Rebecca Herrera MR#: [id number] : 1950 Acct:[id number] Age/Sex: 70 / F Type: REG RCR Copies to: Helena Fontenot MD~ Subjective Date/Time of Service: Date of Service: 04/24/2021 Time of Service: 12:01 Chief Complaint: Patient is here today for 1 year follow up visit for iron deficiency anemia and to review labs. No new concerns HPI: Mrs. Nugent returns for a scheduled follow up. She was a patient of Dr. Debbie Doss for yearly follow-up. She had IV iron a few years ago. She reports doing well; She denies hematochezia, melena or bright red blood per rectum. No abnormal bleeding or issues related to Xarelto. She is no longer fatigued, taking ferrous sulfate at night. PAST MEDICAL HISTORY: Clinical diagnosis of sarcoidosis; Morbid obesity status post gastric bypass in 2000; Chronic arthritis; Sleep apnea on CPAP at night; Panic disorder. 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 Never smoker. - Summary of Therapies Summary of Therapies: For iron deficiency anemia: IV Ferumoxytol 510mg x2 01/2017; 12/2017 -Oral Ferrous sulfate 325mg daily. For lymphopenia: Previously on PJP prophylaxis per Dr. Diego, discontinued in 2017 Subjective/ROS - Narrative: CONSTITUTIONAL: No weight loss, fever, chills, fatigue improved. CARDIOVASCULAR: No chest pain, chest pressure or chest discomfort. No palpitations or edema. RESPIRATORY: No shortness of breath, cough or hemoptysis. GASTROINTESTINAL: No dysphagia, nausea, vomiting or diarrhea. No abdominal pain,melena, hematochezia. GENITOURINARY: No dysuria. NEUROLOGICAL: No headache. MUSCULOSKELETAL: Positive for knee pain. Home Medications & Allergies Allergies No Known Allergies Allergy (Verified 04/24/21 09:30) Home Medications acetaminophen 325 mg tablet (Tylenol) 2 tab PO DAILY PRN 05/15/17 [History Confirmed 04/25/20] albuterol sulfate 90 mcg/actuation aerosol inhaler 1 puff INHALATION Q4-6H PRN 05/15/17 [History Confirmed 04/25/20] hydrocodone 5 mg-acetaminophen 325 mg tablet ([place]) 1 tab PO Q4-6H PRN 05/15/17[History Confirmed 04/25/20] multivitamin 1 tab PO DAILY 05/15/17 [History Confirmed 04/25/20] paroxetine HCl 20 mg tablet (Paxil) 30 mg PO DAILY 05/15/17 [History Confirmed 04/25/20] cholecalciferol (vitamin D3) 25 mcg (1,000 unit) capsule (Vitamin D3) 100,000 unit PO DIRECTED 06/24/17 [History Confirmed 04/25/20] zinc amino acid chelate 50 mg tablet 50 mg PO DAILY 06/24/17 [History Confirmed 04/25/20] ferrous sulfate 325 mg (65 mg iron) tablet (iron) 325 mg PO DAILY 07/01/18 [History Confirmed 04/25/20] hydroxychloroquine 200 mg tablet (Plaquenil) 200 mg PO BID 12/30/18 [History Confirmed 04/25/20] bupropion HCl 150 mg 24 hr tablet, extended release 150 mg PO QAM 04/25/20 [History Confirmed 04/25/20] famotidine 20 mg tablet 20 mg PO QHS 04/25/20 [History Confirmed 04/25/20] warfarin 2 mg tablet 2 mg PO QMWF 04/24/21 [History Confirmed 04/24/21] Objective - Height/Weight Height/Weight: Height 5 ft 4 in Weight 77.111 kg - Vital Signs Vital Signs: 04/24/21 09:31 Temperature 98.0 F Pulse Rate [Right Brachial] 48 L Respiratory Rate 20 Blood Pressure [Left Arm] 123/64 02 Sat by Pulse Oximetry 96 - Emotional Needs Assessment Emotional Needs Assessment: Emotional Needs Identified? Yes: loss of sister Distress Screening Total 3 Physical Exam Narrative: GENERAL APPEARANCE: In no acute distress. HEENT: No jaundice or lymphadenopathy. Lungs: Breathing comfortably on room air. EXTREMITIES: No edema NEUROLOGIC: Grossly intact. - ECOG Performance Status ECOG Score: 0 Results - Labs Labs: Diagram of Most Recent CBC and CMP 04/18/20 10:20 Assessment and Plan (1) Iron deficiency anemia Qualifiers: Iron deficiency anemia type: chronic blood loss Qualified Code(s): D50.0 - Iron deficiency anemia secondary to blood loss (chronic) Iron deficiency anemia, in the setting of gastric bypass and chronic anticoagulation; repeat EGD/colonoscopy on 02/16/[address] Alvares at [facility] in [place], no concerns of malignancy. -Etiology including malabsorption versus blood loss. She now tolerates oral iron(Ferrous Sulfate) at night with manageable side effects: diarrhea and irritation. -Hgb is decent, ferritin adequate, will have her return in 1 year with repeat CBC, iron studies, and ferritin. (2) Lymphopenia Stable (3) Mediastinal lymphadenopathy (4) History of deep venous thrombosis (DVT) of distal vein of right lower extremity History of right lower extremity DVT 1996, likely unprovoked, associated with Estrogen use. She has Factor V Leiden heterozygosity. -She has a [place] filter in place is no planned to retrieve. She is on Xarelto 10mg daily. - Time with Patient Coordination of Care & Counseling Time: Greater than 50% of time spent with patient was for coordination of care (as documented) and [id number] counseling of patient and/or family. Dictated By: Dilshad Escobedo MD DD/ 00 Signed By: <Electronically signed by MD Dilshad Escobedo> 04/24/213 [facility] Work Phone: [phone]) [phone] Progress note Author Claudio Alonso [facility] April 25, 2020 9:31am Note Date/Time April 25, 2020 9:29am [facility] [place] [address] Hem/Onc Follow Up Note - OP Signed Patient: Rebecca Herrera MR#: [id number] : 1950 Acct:[id number] Age/Sex: 69 / F Type: REG RCR Copies to: Helena Fontenot MD~ Subjective Date/Time of Service: Date of Service: 04/25/2020 Time of Service: 09:29 Chief Complaint: Patient here for one year follow up appointment to review lab work results for iron deficiency anemia. HPI: Mrs. Nugent returns for a scheduled follow up. She reports doing well; She denies hematochezia, melena or bright red blood per rectum. No abnormal bleedingor issues related to Xarelto. She is no longer fatigued, taking ferrous sulfate at night. PAST MEDICAL HISTORY: Clinical diagnosis of sarcoidosis; Morbid obesity status post gastric bypass in 2000; Chronic arthritis; Sleep apnea on CPAP at night; Panic disorder. 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 Never smoker. - Summary of Therapies Summary of Therapies: For iron deficiency anemia: IV Ferumoxytol 510mg x2 01/2017; 12/2017 -Oral Ferrous sulfate 325mg daily. For lymphopenia: Previously on PJP prophylaxis per Dr. Diego, discontinued in 2017 Subjective/ROS - Narrative: CONSTITUTIONAL: No weight loss, fever, chills, fatigue improved. CARDIOVASCULAR: No chest pain, chest pressure or chest discomfort. No palpitations or edema. RESPIRATORY: No shortness of breath, cough or hemoptysis. GASTROINTESTINAL: No dysphagia, nausea, vomiting or diarrhea. No abdominal pain,melena, hematochezia. GENITOURINARY: No dysuria. NEUROLOGICAL: No headache. MUSCULOSKELETAL: Positive for knee pain. Home Medications & Allergies Allergies No Known Allergies Allergy (Verified 01/06/18 13:54) Home Medications acetaminophen [Tylenol] 2 tab PO DAILY PRN 05/15/17 [History Confirmed 04/25/20] albuterol sulfate 1 puff INHALATION Q4-6H PRN 05/15/17 [History Confirmed 04/25/20] hydrocodone-acetaminophen [[place]] 1 tab PO Q4-6H PRN 05/15/17 [History Confirmed 04/25/20] multivitamin 1 tab PO DAILY 05/15/17 [History Confirmed 04/25/20] paroxetine HCl [Paxil] 30 mg PO DAILY 05/15/17 [History Confirmed 04/25/20] rivaroxaban [Xarelto] 10 mg PO DAILY 05/15/17 [History Confirmed 04/25/20] cholecalciferol (vitamin D3) [Vitamin D3] 100,000 unit PO DIRECTED 06/24/17 [History Confirmed 04/25/20] zinc amino acid chelate 50 mg PO DAILY 06/24/17 [History Confirmed 04/25/20] ferrous sulfate [iron] 325 mg PO DAILY 07/01/18 [History Confirmed 04/25/20] hydroxychloroquine [Plaquenil] 200 mg PO BID 12/30/18 [History Confirmed 04/25/20] bupropion HCl 150 mg PO QAM 04/25/20 [History Confirmed 04/25/20] famotidine 20 mg PO QHS 04/25/20 [History Confirmed 04/25/20] Objective - Height/Weight Height/Weight: Height 5 ft 4 in Weight 77.564 kg - Vital Signs Vital Signs: 04/25/20 09:11 Temperature 97.2 F L Pulse Rate [Right Brachial] 54 L Respiratory Rate 18 Blood Pressure [Left Arm] 128/71 02 Sat by Pulse Oximetry 98 - Emotional Needs Assessment Emotional Needs Assessment: Emotional Needs Identified? No Distress Screening Total 0 - ECOG Performance Status ECOG Score: 0 Physical Exam Narrative: GENERAL APPEARANCE: In no acute distress. HEENT: No jaundice or lymphadenopathy. Lungs: Breathing comfortably on room air. EXTREMITIES: No edema NEUROLOGIC: Grossly intact. Results - Labs Labs: Diagram of Most Recent CBC and CMP 04/18/20 10:20 Labs - Last 7 Days 04/18/20 10:20: Iron 58, TIBC 363, Iron Saturation 15.0 L, Transferrin 259, Ferritin 46.2 04/18/20 10:20: WBC 4.1 L, Corrected WBC 4.1, RBC 4.15, Hgb 13.2, Hct 39.0, MCV 94.0, MCH 31.9, MCHC 33.9, RDW 13.7, Plt Count 168, MPV 9.5, Neut % (Auto) 62.4,Lymph % (Auto) 16.8, Giles % (Auto) 13.8, Eos % (Auto) 6.1, Baso % (Auto) 0.9, Neut # (Auto) 2.6, Lymph # (Auto) 0.7 L, Giles # (Auto) 0.6, Eos # (Auto) 0.3, Baso # (Auto) 0.0, Nucleated RBC % (auto) 0.1 Assessment and Plan (1) Iron deficiency anemia Qualifiers: Iron deficiency anemia type: chronic blood loss Qualified Code(s): D50.0 - Iron deficiency anemia secondary to blood loss (chronic) Iron deficiency anemia, in the setting of gastric bypass and chronic anticoagulation; repeat EGD/colonoscopy on 02/16/[address] Alvares at [facility] in [place], no concerns of malignancy. -Etiology including malabsorption versus blood loss. She now tolerates oral iron(Ferrous Sulfate) at night with manageable side effects: diarrhea and irritation. -Hgb is decent, ferritin adequate, will have her return in 1 year with repeat CBC, iron studies, and ferritin. (2) Lymphopenia Lymphopenia since 05/2014, associated with retroperitoneal and mediastinal lymphadenopathy. -No history of frequent bacterial infections; HIV screen negative. -Treated with a course of Prednisone for autoimmune disease. Off Prednisone since August 2017, doing well, no infection off PJP prolylaxis by immunology. -Presentation was blurry vision associated with night sweats, placed on Prednisone. Night sweats has resolved. 06/18/2017: WBC 6.6, Hgb 13.6, MCV 90.4, platelets 201, lymphocyte 0.4, 6.2% 09/23/2016: WBC 13.6, Hgb 9.6, MCV 71.3, platelets 319, lymphocyte 0.3, 2.2% 04/02/2015: WBC 13.8, Hgb 11.2, MCV 81.3, platelets 224,lymphocyte 2% 05/26/2014: WBC 8.4, Hgb 11.0, MCV 84.5, platelets 183, lymphocyte 0.3, 4% 10/19/2013: WBC 4.2, Hgb 11.7, MCV 85.9, platelets 233, lymphocyte 0.8, 18.1% 07/20/2012: WBC 6.4, Hgb 12.6, MCV 85.1, platelets 225, lymphocyte 1.3, 21%. 03/06/2012: WBC 5.4, Hgb 12.2, MCV 92.2, platelets 173, lymphocytes 22.2% 12/12/2011: WBC 6.5, Hgb 13.1, MCV 92.3, platelets 205, lymphocytes 2.2, 34.2% (3) Mediastinal lymphadenopathy She had bronchoscopy/EBUS biopsy by pulmonology in [place], per patient, nondiagnostic. -[place] to be sarcoidosis, following pulmonology (4) History of deep venous thrombosis (DVT) of distal vein of right lower extremity History of right lower extremity DVT 1996, likely unprovoked, associated with Estrogen use. She has Factor V Leiden heterozygosity. -She has a [place] filter in place is no planned to retrieve. She is on Xarelto 10mg daily. Low complexity encounter, time spent 20 min. - Time with Patient Coordination of Care & Counseling Time: Greater than 50% of time spent with patient was for coordination of care (as documented) and [id number] counseling of patient and/or family. Dictated By: Claudio Alonso MD DD/ 8 Signed By: <Electronically signed by Claudio Alonso MD> 04/25/[address] [facility] Work Phone: [phone] Progress note Author Claudio Alonso [facility] April 13, 2019 10:24am Note Date/Time April 13, 2019 10:21am [facility] [place] [address] Hem/Onc Follow Up Note - OP Signed Patient: Rebecca Chandler MR#: [id number] : 1950 Acct:[id number] Age/Sex: 68 / F Type: REG RCR Copies to: Irma Dupont MD~ Subjective Date/Time of Service: Date of Service: 04/13/2019 Time of Service: 10:20 Chief Complaint: 3 month follow up appt review lab work HPI: Mrs. Nugent returns for a scheduled follow up. She has left knee replacement 3 month ago, reports doing well; had negative colonoscopy and EGD over summer 2017. She denies hematochezia, melena or bright red blood per rectum. No abnormal bleeding or issues related to Xarelto. She is no longer fatigued, taking ferrous sulfate at night. PAST MEDICAL HISTORY: Clinical diagnosis of sarcoidosis; Morbid obesity status post gastric bypass in 2000; Chronic arthritis; Sleep apnea on CPAP at night; Panic disorder. 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 Never smoker. - Summary of Therapies Summary of Therapies: For iron deficiency anemia: IV Ferumoxytol 510mg x2 01/2017; 12/2017 For lymphopenia: Previously on PJP prophylaxis per Dr. Diego, discontinued in 2018 Subjective/ROS - Narrative: CONSTITUTIONAL: No weight loss, fever, chills, fatigue improved. CARDIOVASCULAR: No chest pain, chest pressure or chest discomfort. No palpitations or edema. RESPIRATORY: No shortness of breath, cough or hemoptysis. GASTROINTESTINAL: No dysphagia, nausea, vomiting or diarrhea. No abdominal pain,melena, hematochezia. GENITOURINARY: No dysuria. NEUROLOGICAL: No headache. MUSCULOSKELETAL: Positive for knee pain. Home Medications & Allergies Allergies No Known Allergies Allergy (Verified 01/06/18 13:54) Home Medications acetaminophen [Tylenol] 2 tab PO DAILY PRN 05/15/17 [History Confirmed 04/13/19] albuterol sulfate 1 puff INHALATION Q4-6H PRN 05/15/17 [History Confirmed 04/13/19] hydrocodone-acetaminophen [[place]] 1 tab PO Q4-6H PRN 05/15/17 [History Confirmed 04/13/19] multivitamin 1 tab PO DAILY 05/15/17 [History Confirmed 04/13/19] paroxetine HCl [Paxil] 30 mg PO DAILY 05/15/17 [History Confirmed 04/13/19] rivaroxaban [Xarelto] 10 mg PO DAILY 05/15/17 [History Confirmed 04/13/19] cholecalciferol (vitamin D3) [Vitamin D3] 100,000 unit PO DIRECTED 06/24/17 [History Confirmed 04/13/19] zinc amino acid chelate 50 mg PO DAILY 06/24/17 [History Confirmed 04/13/19] ferrous sulfate [iron] 325 mg PO DAILY 07/01/18 [History Confirmed 04/13/19] prasterone (dhea) [DHEA] 25 mg PO DAILY 07/01/18 [History Confirmed 04/13/19] progesterone micronized 45 mg DAILY 07/01/18 [History Confirmed 04/13/19] hydroxychloroquine [Plaquenil] 200 mg PO BID 12/30/18 [History Confirmed 04/13/19] Objective - Height/Weight Height/Weight: Height 5 ft 4 in Weight 73.4 kg - Vital Signs Vital Signs: 04/13/19 10:04 Temperature 97.8 F Pulse Rate [Right Brachial] 51 L Respiratory Rate 20 Blood Pressure [Left Arm] 114/64 02 Sat by Pulse Oximetry 98 - Emotional Needs Assessment Emotional Needs Assessment: Emotional Needs Identified? No Distress Screening Total 0 - ECOG Performance Status ECOG Score: 0 Physical Exam Narrative: GENERAL APPEARANCE: In no acute distress. HEENT: Moist and clear EXTREMITIES: No edema, left knee surgical scar NEUROLOGIC: Grossly intact. Results - Labs Labs: Diagram of Most Recent CBC and CMP 04/06/19 10:13 Labs - Last 7 Days 04/06/19 10:13: Iron 70, TIBC 316, Iron Saturation 22.0, Transferrin 226, Ferritin 47.5 04/06/19 10:13: WBC 3.9 L, Corrected WBC 3.9, RBC 4.34, Hgb 13.4, Hct 40.0, MCV 92.1, MCH 30.8, MCHC 33.4, RDW 13.3, Plt Count 185, MPV 10.0, Neut % (Auto) 66.9, Lymph % (Auto) 14.5, Giles % (Auto) 12.3, Eos % (Auto) 5.9, Baso % (Auto) 0.4, Neut # (Auto) 2.6, Lymph # (Auto) 0.6 L, Giles # (Auto) 0.5, Eos # (Auto) 0.2, Baso # (Auto) 0.0, Nucleated RBC % (auto) 0.2 Assessment and Plan (1) Iron deficiency anemia Qualifiers: Iron deficiency anemia type: chronic blood loss Qualified Code(s): D50.0 - Iron deficiency anemia secondary to blood loss (chronic) Iron deficiency anemia, in the setting of gastric bypass and chronic anticoagulation; repeat EGD/colonoscopy on 02/16/[address] Alvares at [facility] in [place], no concerns of malignancy. -Etiology including malabsorption versus blood loss. She now tolerates oral ironat night with manageable side effects: diarrhea and irritation. -Hgb is decent, ferritin adequate, will have her return in 1 year with repeat CBC, iron studies, and ferritin. (2) Lymphopenia Lymphopenia since 05/2014, associated with retroperitoneal and mediastinal lymphadenopathy. -No history of frequent bacterial infections; HIV screen negative. -Treated with a course of Prednisone for autoimmune disease. Off Prednisone since August 2017, doing well, no infection off PJP prolylaxis by immunology. -Presentation was blurry vision associated with night sweats, placed on Prednisone. Night sweats has resolved. 06/18/2017: WBC 6.6, Hgb 13.6, MCV 90.4, platelets 201, lymphocyte 0.4, 6.2% 09/23/2016: WBC 13.6, Hgb 9.6, MCV 71.3, platelets 319, lymphocyte 0.3, 2.2% 04/02/2015: WBC 13.8, Hgb 11.2, MCV 81.3, platelets 224,lymphocyte 2% 05/26/2014: WBC 8.4, Hgb 11.0, MCV 84.5, platelets 183, lymphocyte 0.3, 4% 10/19/2013: WBC 4.2, Hgb 11.7, MCV 85.9, platelets 233, lymphocyte 0.8, 18.1% 07/20/2012: WBC 6.4, Hgb 12.6, MCV 85.1, platelets 225, lymphocyte 1.3, 21%. 03/06/2012: WBC 5.4, Hgb 12.2, MCV 92.2, platelets 173, lymphocytes 22.2% 12/12/2011: WBC 6.5, Hgb 13.1, MCV 92.3, platelets 205, lymphocytes 2.2, 34.2% 3. History of right lower extremity DVT 1996, likely unprovoked, associated with Estrogen use. She has Factor V Leiden heterozygosity. -She has a Anthony filter in place is no planned to retrieve. On chronic anticoagulation with Coumadin, planning to switch to Xarelto vs Eliquis. (3) Mediastinal lymphadenopathy She had bronchoscopy/EBUS biopsy by pulmonology in [place], per patient, nondiagnostic. -[place] to be sarcoidosis, following pulmonology (4) History of deep venous thrombosis (DVT) of distal vein of right lower extremity History of right lower extremity DVT 1996, likely unprovoked, associated with Estrogen use. She has Factor V Leiden heterozygosity. -She has a [place] filter in place is no planned to retrieve. She is on Xarelto 10mg daily. Low complexity encounter, time spent 15 min. - Time with Patient Coordination of Care & Counseling Time: Greater than 50% of time spent with patient was for coordination of care (as documented) and [id number] counseling of patient and/or family. Dictated By: Claudio Alonso MD DD/ 1020 Signed By: <Electronically signed by Claudio Alonso MD> 04/13/19 1024 [facility] Work Phone: [phone] Progress note Author Claudio Alonso [facility] December 30, 2018 9:10am Note Date/Time December 30, 2018 9:04a m [facility] [place] [address] Hem/Onc Follow Up Note - OP Signed Patient: Rebecca Chandler MR#: [id number] : 1950 Acct:[id number] Age/Sex: 68 / F Type: REG RCR Copies to: Irma Dupont MD~ Subjective Date/Time of Service: Date of Service: 12/30/2018 Time of Service: 09:02 Chief Complaint: Follow up appt 6 month no new concerns - Diagnosis DIAGNOSIS: 1. Iron deficiency anemia, in the setting of gastric bypass and chronic anticoagulation. -Etiology including malabsorption versus blood loss. Could not tolerate oral iron due to irritation. -Repeat colonoscopy on 02/16/[address] Alvares at [facility] in [place]. EGD findings were consistent with erosive gastritis, with multiple nonbleeding ulcers. Colonoscopy demonstrated tortuous redundant colon but otherwise normal colonoscopy; no evidence of malignancy. 2. Lymphopenia since 05/2014, associated with retroperitoneal and mediastinal lymphadenopathy. HIV negative. -Presentation was blurry vision associated with night sweats, placed on Prednisone. Night sweats has resolved. -Coincidental mild retroperitoneal and mediastinal lymphadenopathy on CT abd 09/23/16 (evaluating back pain and fever) and CT chest 11/08/16 (evaluating cough);bronchoscopy/EBUS biopsy by pulmonology in [place], per patient, nondiagnostic, following pulmonology. She was taken off PJP prolylaxis by immunology. 06/18/2017: WBC 6.6, Hgb 13.6, MCV 90.4, platelets 201, lymphocyte 0.4, 6.2% 09/23/2016: WBC 13.6, Hgb 9.6, MCV 71.3, platelets 319, lymphocyte 0.3, 2.2% 04/02/2015: WBC 13.8, Hgb 11.2, MCV 81.3, platelets 224,lymphocyte 2% 05/26/2014: WBC 8.4, Hgb 11.0, MCV 84.5, platelets 183, lymphocyte 0.3, 4% 10/19/2013: WBC 4.2, Hgb 11.7, MCV 85.9, platelets 233, lymphocyte 0.8, 18.1% 07/20/2012: WBC 6.4, Hgb 12.6, MCV 85.1, platelets 225, lymphocyte 1.3, 21%. 03/06/2012: WBC 5.4, Hgb 12.2, MCV 92.2, platelets 173, lymphocytes 22.2% 12/12/2011: WBC 6.5, Hgb 13.1, MCV 92.3, platelets 205, lymphocytes 2.2, 34.2% 3. History of right lower extremity DVT 1996, likely unprovoked, associated with Estrogen use. She has Factor V Leiden heterozygosity. -She has a Anthony filter in place is no planned to retrieve. On chronic anticoagulation with Coumadin, planning to switch to Xarelto vs Eliquis. PAST MEDICAL HISTORY: Clinical diagnosis of sarcoidosis; Morbid obesity status post gastric bypass in 2000; Chronic arthritis; Sleep apnea on CPAP at night; Panic disorder. 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 Never smoker. HPI: Mrs. Nugent returns for a scheduled follow up. She reports feeling well; had negative colonoscopy and EGD over summer 2017. She denies hematochezia, melena or bright red blood per rectum. No abnormal bleeding or issues related to Xarelto. She is no longer fatigued, taking ferrous sulfate at night. She will have left knee replacement tomorrow. - Summary of Therapies Summary of Therapies: For iron deficiency anemia: IV Ferumoxytol 510mg x2 01/2017; 12/2017 For lymphopenia: Previously on PJP prophylaxis per Dr. Diego, discontinued in 2017 Subjective/ROS - Narrative: CONSTITUTIONAL: No weight loss, fever, chills, fatigue improved. CARDIOVASCULAR: No chest pain, chest pressure or chest discomfort. No palpitations or edema. RESPIRATORY: No shortness of breath, cough or hemoptysis. GASTROINTESTINAL: No dysphagia, nausea, vomiting or diarrhea. No abdominal pain,melena, hematochezia. GENITOURINARY: No dysuria. NEUROLOGICAL: No headache. MUSCULOSKELETAL: Positive for knee pain. Home Medications & Allergies Allergies Allergy/AdvReac Type Severity Reaction Status Date / Time No Known Allergies Allergy Verified 01/06/18 13:54 Home Medications Medication Instructions Recorded Confirmed Type acetaminophen [Tylenol] 2 tab PO DAILY PRN 05/15/17 12/30/18 History albuterol sulfate 1 puff INHALATION Q4-6H PRN 05/15/17 12/30/18 History hydrocodone-acetaminophen [[place]] 1 tab PO Q4-6H PRN 05/15/17 12/30/18 History multivitamin 1 tab PO DAILY 05/15/17 12/30/18 History paroxetine HCl [Paxil] 30 mg PO DAILY 05/15/17 12/30/18 History rivaroxaban [Xarelto] 10 mg PO DAILY 05/15/17 12/30/18 History cholecalciferol (vitamin D3) 100,000 unit PO DIRECTED 06/24/17 12/30/18 History [Vitamin D3] zinc amino acid chelate 50 mg PO DAILY 06/24/17 12/30/18 History ferrous sulfate [iron] 325 mg PO DAILY 07/01/18 12/30/18 History prasterone (dhea) [DHEA] 25 mg PO DAILY 07/01/18 12/30/18 History progesterone micronized 45 mg DAILY 07/01/18 12/30/18 History hydroxychloroquine [Plaquenil] 200 mg PO BID 12/30/18 12/30/18 History Objective - Height/Weight Height/Weight: Height 5 ft 4 in Weight 77.4 kg - Vital Signs Vital Signs: 12/30/18 08:47 Temperature 98 F Pulse Rate [Right Brachial] 51 L Respiratory Rate 20 Blood Pressure [Left Arm] 138/66 02 Sat by Pulse Oximetry 98 - Emotional Needs Assessment Emotional Needs Assessment: Emotional Needs Identified? No Distress Screening Total 0 - ECOG Performance Status ECOG Score: 0 Physical Exam Narrative: GENERAL APPEARANCE: In no acute distress. HEENT: Moist and clear, no oral thrush. LUNGS: Clear to auscultation bilaterally, no rales, rhonchi, or crackles. CARDIOVASCULAR: S1 and S2, regular rate and rhythm, no murmurs, gallops, rubs. ABDOMEN: Soft, nontender. EXTREMITIES: No edema or calf tenderness. NEUROLOGIC: Grossly intact. Results - Labs Labs: Diagram of Most Recent CBC and CMP 12/21/18 13:35 Iron 56, TIBC 284, ferritin 97.9 Assessment and Plan (1) Iron deficiency anemia Qualifiers: Iron deficiency anemia type: chronic blood loss Qualified Code(s): D50.0 - Iron deficiency anemia secondary to blood loss (chronic) Iron deficiency anemia, in the setting of gastric bypass and chronic anticoagulation; repeat EGD/colonoscopy on 02/16/[address] Alvares at [facility] in [place], no concerns of malignancy. -Etiology including malabsorption versus blood loss. She now tolerates oral ironat night with manageable side effects: diarrhea and irritation. -Hgb is decent, ferritin adequate. In anticipation of blood loss from knee surgery, will have her return in 3 months with repeat CBC, iron studies, and ferritin. (2) Lymphopenia Lymphopenia since 05/2014, associated with retroperitoneal and mediastinal lymphadenopathy. -No history of frequent bacterial infections; HIV screen negative. -Treated with a course of Prednisone for autoimmune disease. Off Prednisone since August 2017, doing well, no infection off PJP prolylaxis by immunology. (3) Mediastinal lymphadenopathy She had bronchoscopy/EBUS biopsy by pulmonology in [place], per patient, nondiagnostic. -[place] to be sarcoidosis, following pulmonology (4) History of deep venous thrombosis (DVT) of distal vein of right lower extremity - Time with Patient Coordination of Care & Counseling Time: Greater than 50% of time spent with patient was for coordination of care (as documented) and [id number] counseling of patient and/or family. Dictated By: Claudio Alonso MD DD/ 1 Signed By: <Electronically signed by Claudio Alonso MD> 12/30/18909 [facility] Work Phone: [phone] Progress note Author Laina Morales [facility] July 01, 2018 9:55am Note Date/Time July 01, 2018 9:43am [facility] [place] [address] Hem/Onc Follow Up Note - OP Signed Patient: Rebecca Chandler MR#: [id number] : 1950 Acct:[id number] Age/Sex: 67 / F Type: REG RCR Copies to: Irma Dupont MD~ Subjective Date/Time of Service: Date of Service: 07/01/2018 Time of Service: 09:41 Chief Complaint: Patient is here for a six month follow up appointment to reviewlab results for anemia. Patient had colonoscopy in February at [facility]. Noconcerns noted at this time. - Diagnosis DIAGNOSIS: 1. Iron deficiency anemia, in the setting of gastric bypass and chronic anticoagulation. -Etiology including malabsorption versus blood loss. Could not tolerate oral iron due to irritation. -Last colonoscopy 5 years ago, which was free of colon cancer. 2. Lymphopenia since 05/2014, associated with retroperitoneal and mediastinal lymphadenopathy. HIV negative. -Presentation was blurry vision associated with night sweats, placed on Prednisone. Night sweats has resolved. -Coincidental mild retroperitoneal and mediastinal lymphadenopathy on CT abd 09/23/16 (evaluating back pain and fever) and CT chest 11/08/16 (evaluating cough). 06/23/2018: WBC 4.6, Hgb 13.5, MCV 99.0, platelets 149, lymphocyte 0.6, 13.7% 06/18/2017: WBC 6.6, Hgb 13.6, MCV 90.4, platelets 201, lymphocyte 0.4, 6.2% 09/23/2016: WBC 13.6, Hgb 9.6, MCV 71.3, platelets 319, lymphocyte 0.3, 2.2% 04/02/2015: WBC 13.8, Hgb 11.2, MCV 81.3, platelets 224,lymphocyte 2% 05/26/2014: WBC 8.4, Hgb 11.0, MCV 84.5, platelets 183, lymphocyte 0.3, 4% 10/19/2013: WBC 4.2, Hgb 11.7, MCV 85.9, platelets 233, lymphocyte 0.8, 18.1% 07/20/2012: WBC 6.4, Hgb 12.6, MCV 85.1, platelets 225, lymphocyte 1.3, 21%. 03/06/2012: WBC 5.4, Hgb 12.2, MCV 92.2, platelets 173, lymphocytes 22.2% 12/12/2011: WBC 6.5, Hgb 13.1, MCV 92.3, platelets 205, lymphocytes 2.2, 34.2% 3. History of right lower extremity DVT 1996, likely unprovoked, associated with Estrogen use. She has Factor V Leiden heterozygosity. -She has a Anthony filter in place is no planned to retrieve. Previously on chronic anticoagulation with Coumadin, switched to Xarelto. PAST MEDICAL HISTORY: Clinical diagnosis of sarcoidosis; Morbid obesity status post gastric bypass in 2000; Chronic arthritis; Sleep apnea on CPAP at night; Panic disorder. 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 Never smoker. HPI: Mrs. Nugent returns for a scheduled follow up. She reports feeling well; had negative colonoscopy and EGD over summer 2017. She denies hematochezia, melena or bright red blood per rectum. No abnormal bleeding or issues related to Xarelto. She is no longer fatigued, denies shortness of breath, fever/chills, recent infections, weight loss, night sweats, chest pain, cough, bowel/bladder problemsor new pain. - Summary of Therapies Summary of Therapies: For iron deficiency anemia: IV Ferumoxytol 510mg x2 01/2017; 12/2017 For lymphopenia: Previously on PJP prophylaxis per Dr. Diego, discontinued in 2017 Subjective/ROS - Narrative: CONSTITUTIONAL: No weight loss, fever, chills, fatigue improved. CARDIOVASCULAR: No chest pain, chest pressure or chest discomfort. No palpitations or edema. RESPIRATORY: No shortness of breath, cough or hemoptysis. GASTROINTESTINAL: No dysphagia, nausea, vomiting or diarrhea. No abdominal pain,melena, hematochezia. GENITOURINARY: No dysuria, urinary frequency or urgency. NEUROLOGICAL: No headache, dizziness, syncope, numbness or tingling in the extremities. MUSCULOSKELETAL: No back pain, or joint pain. ONC PMFSH - Cardiac History Does Patient Have Pacemaker?: No - 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 Hx Recreational Drug Use?: No Home Medications & Allergies Allergies Allergy/AdvReac Type Severity Reaction Status Date / Time No Known Allergies Allergy Verified 01/06/18 13:54 Home Medications Medication Instructions Recorded Confirmed Type acetaminophen [Tylenol] 2 tab PO DAILY PRN 05/15/17 07/01/18 History albuterol sulfate 1 puff INHALATION Q4-6H PRN 05/15/17 05/15/17 History hydrocodone-acetaminophen [[place]] 1 tab PO Q4-6H PRN 05/15/17 05/15/17 History multivitamin 1 tab PO DAILY 05/15/17 05/15/17 History paroxetine HCl [Paxil] 20 mg PO DAILY 05/15/17 05/15/17 History rivaroxaban [Xarelto] 10 mg PO DAILY 05/15/17 12/23/17 History cholecalciferol (vitamin D3) 100,000 unit PO DIRECTED 06/24/17 07/01/18 History [Vitamin D3] zinc amino acid chelate 50 mg PO DAILY 06/24/17 06/24/17 History meloxicam 7.5 mg PO DAILY 12/23/17 12/23/17 History ferrous sulfate [iron] 325 mg PO DAILY 07/01/18 07/01/18 History prasterone (dhea) [DHEA] 25 mg PO DAILY 07/01/18 07/01/18 History progesterone micronized 45 mg DAILY 07/01/18 07/01/18 History Objective - Resuscitation Status Resuscitation Status: Full Code - Height/Weight Height/Weight: Height 5 ft 4 in Weight 78.834 kg - Vital Signs Vital Signs: Temp 97.2 F L 07/01/18 08:59 Pulse 57 L 07/01/18 08:59 Resp 16 07/01/18 08:59 BP 124/68 07/01/18 08:59 Pulse Ox 96 07/01/18 08:59 - Emotional Needs Assessment Emotional Needs Assessment: Emotional Needs Identified? No Distress Screening Total 0 - ECOG Performance Status ECOG Score: 0 Physical Exam Narrative: GENERAL APPEARANCE: In no acute distress. HEENT: Moist and clear, no oral thrush. LUNGS: Clear to auscultation bilaterally, no rales, rhonchi, or crackles. CARDIOVASCULAR: S1 and S2, regular rate and rhythm, no murmurs, gallops, rubs. ABDOMEN: Soft, nontender, bowel sounds normal. No hepatosplenomegaly. No mass palpated. EXTREMITIES: No edema or calf tenderness. NEUROLOGIC: Grossly intact. Results - Labs CBC & Chem 7: 06/23/18 12:15 Labs: Diagram of Most Recent CBC and CMP 06/23/18 12:15 - Impressions Any impression(s) listed above is documentation that was entered by the reading physician into a diagnostic report(s) for Rebecca Shirley Chandler. I have reviewed the report(s) and am incorporating any findings in the treatment plan of this patient where applicable. Assessment and Plan (1) Iron deficiency anemia Qualifiers: Iron deficiency anemia type: chronic blood loss Qualified Code(s): D50.0 - Iron deficiency anemia secondary to blood loss (chronic) Status: Chronic Iron deficiency anemia, in the setting of gastric bypass and chronic anticoagulation. -Etiology including malabsorption versus blood loss. Could not tolerate oral iron due to irritation. -Hgb was trending downwards and ferritin was very low at 7.9, consistent with iron deficiency on labs in December 2017. She was symptomatic with fatigue. -S/P IV iron, Feraheme [id number] in January 2018. Tolerated well in the past, no concern of infusion reactions. -Had repeat colonoscopy on 02/16/[address] Alvares at [facility] in [place]. EGD findings were consistent with erosive gastritis, with multiple nonbleeding ulcers. Colonoscopy demonstrated tortuous redundant colon but otherwise normal colonoscopy; no evidence of malignancy. -She returns for 6-month follow-up with repeat CBC, iron studies, and ferritin. She is feeling quite well, fatigue is greatly improved; ferritin has increased to 105.7; and iron sat is now 26%. Hemoglobin is robust at 13.5 and MCV is normal. RTC in 6 months with repeat labs (CBC, iron studies, and ferritin)- sooner if needed or becomes symptomatic. (2) Lymphopenia Status: Chronic Lymphopenia since 05/2014, associated with retroperitoneal and mediastinal lymphadenopathy. -No history of frequent bacterial infections; HIV screen negative. -Treated with a course of Prednisone for autoimmune disease. Off Prednisone since August 2017. -CT scan on 03/06/17 reviewed, persistent adenopathy. She had bronchoscopy/EBUS biopsy by pulmonology in [place], per patient, nondiagnostic. -I discussed with her that if a definitive diagnosis is a concern, mediastinoscopy to get an entire lymph node may help. -Per rheumatology, this is felt to be related to sarcoidosis. She was taken off PJP prolylaxis by immunology. (3) History of deep venous thrombosis (DVT) of distal vein of right lower extremity Status: Chronic History of right lower extremity DVT 1996, likely unprovoked, associated with Estrogen use. She has Factor V Leiden heterozygosity. -She has a [place] filter in place is no planned to retrieve. -She is on Xarelto 10mg daily. - Time with Patient Total Time Spent with Patient: 30 min Coordination of Care & Counseling Time: Greater than 50% of time spent with patient was for coordination of care (as documented) and [id number] counseling of patient and/or family. Dictated By: Laina Morales DD/ [id number] Signed By: <Electronically signed by Laina Morales> 07/01/[address] [facility] Work Phone: [phone] 608-365805-22-2018 Progress note Author Claudio Alonso [facility] December 23, 2017 5:43pm Note Date/Time December 23, 2017 5:34p m [facility] [place] [address] Hem/Onc Follow Up Note - OP Signed Patient: Rebecca Nugent MR#: [id number] : 1950 Acct:[id number] Age/Sex: 67 / F Type: REG RCR Copies to: Irma Dupont MD~ Subjective Date/Time of Service: Date of Service: 12/23/2017 Time of Service: 17:33 Chief Complaint: Follow up appt to review lab work - Diagnosis DIAGNOSIS: 1. Iron deficiency anemia, in the setting of gastric bypass and chronic anticoagulation. -Etiology including malabsorption versus blood loss. Could not tolerate oral iron due to irritation. -Last colonoscopy 5 years ago, which was free of colon cancer. 2. Lymphopenia since 05/2014, associated with retroperitoneal and mediastinal lymphadenopathy. HIV negative. -Presentation was blurry vision associated with night sweats, placed on Prednisone. Night sweats has resolved. -Coincidental mild retroperitoneal and mediastinal lymphadenopathy on CT abd 09/23/16 (evaluating back pain and fever) and CT chest 11/08/16 (evaluating cough). 06/18/2017: WBC 6.6, Hgb 13.6, MCV 90.4, platelets 201, lymphocyte 0.4, 6.2% 09/23/2016: WBC 13.6, Hgb 9.6, MCV 71.3, platelets 319, lymphocyte 0.3, 2.2% 04/02/2015: WBC 13.8, Hgb 11.2, MCV 81.3, platelets 224,lymphocyte 2% 05/26/2014: WBC 8.4, Hgb 11.0, MCV 84.5, platelets 183, lymphocyte 0.3, 4% 10/19/2013: WBC 4.2, Hgb 11.7, MCV 85.9, platelets 233, lymphocyte 0.8, 18.1% 07/20/2012: WBC 6.4, Hgb 12.6, MCV 85.1, platelets 225, lymphocyte 1.3, 21%. 03/06/2012: WBC 5.4, Hgb 12.2, MCV 92.2, platelets 173, lymphocytes 22.2% 12/12/2011: WBC 6.5, Hgb 13.1, MCV 92.3, platelets 205, lymphocytes 2.2, 34.2% 3. History of right lower extremity DVT 1996, likely unprovoked, associated with Estrogen use. She has Factor V Leiden heterozygosity. -She has a Anthony filter in place is no planned to retrieve. On chronic anticoagulation with Coumadin, planning to switch to Xarelto vs Eliquis. PAST MEDICAL HISTORY: Clinical diagnosis of sarcoidosis; Morbid obesity status post gastric bypass in 2000; Chronic arthritis; Sleep apnea on CPAP at night; Panic disorder. 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 Never smoker. HPI: Mrs. Nugent returns for a scheduled follow up. She reports feeling tired. She denies hematochezia or melena. - Summary of Therapies Summary of Therapies: For iron deficiency anemia: IV Ferumoxytol 510mg x2 01/2017; 12/2017 For lymphopenia: On PJP prophylaxis per Dr. Diego, discontinued in 2017 Subjective/ROS - Narrative: CONSTITUTIONAL: No weight loss, fever, chills, positive for fatigue. CARDIOVASCULAR: No chest pain, chest pressure or chest discomfort. No palpitations or edema. RESPIRATORY: No shortness of breath, cough or hemoptysis. GASTROINTESTINAL: No dysphagia, nausea, vomiting or diarrhea. No abdominal pain,melena, hematochezia. GENITOURINARY: No dysuria, urinary frequency or urgency. NEUROLOGICAL: No headache, dizziness, syncope, numbness or tingling in the extremities. MUSCULOSKELETAL: No back pain, or joint pain. Home Medications & Allergies Allergies Allergy/AdvReac Type Severity Reaction Status Date / Time No Known Allergies Allergy Verified 05/15/17 14:19 Home Medications Medication Instructions Recorded Confirmed Type acetaminophen [Tylenol] 500 mg PO Q4-6H PRN 05/15/17 05/15/17 History albuterol sulfate 1 puff INHALATION Q4-6H PRN 05/15/17 05/15/17 History hydrocodone-acetaminophen [[place]] 1 tab PO Q4-6H PRN 05/15/17 05/15/17 History multivitamin 1 tab PO DAILY 05/15/17 05/15/17 History omeprazole 40 mg PO DAILY 05/15/17 05/15/17 History paroxetine HCl [Paxil] 20 mg PO DAILY 05/15/17 05/15/17 History rivaroxaban [Xarelto] 10 mg PO DAILY 05/15/17 12/23/17 History cholecalciferol (vitamin D3) 100,000 unit PO QWEEK 06/24/17 06/24/17 History [Vitamin D3] zinc amino acid chelate 50 mg PO DAILY 06/24/17 06/24/17 History meloxicam 7.5 mg PO DAILY 12/23/17 12/23/17 History Objective - Height/Weight Height/Weight: Height 5 ft 4 in Weight 84.7 kg - Vital Signs Vital Signs: Temp 98 F 12/23/17 10:50 Pulse 52 L 12/23/17 10:50 Resp 20 12/23/17 10:50 BP 127/74 12/23/17 10:50 Pulse Ox 96 12/23/17 10:50 - Emotional Needs Assessment Emotional Needs Assessment: Emotional Needs Identified? No Distress Screening Total 0 - ECOG Performance Status ECOG Score: 1 Physical Exam Narrative: GENERAL APPEARANCE: In no acute distress. HEENT: Moist and clear, no oral thrush. LUNGS: Clear to auscultation bilaterally, no rales, rhonchi, or crackles. CARDIOVASCULAR: S1 and S2, regular rate and rhythm, no murmurs, gallops, rubs. ABDOMEN: Soft, nontender, bowel sounds normal. No hepatosplenomegaly. No mass palpated. EXTREMITIES: No edema or calf tenderness. NEUROLOGIC: Grossly intact. Results - Labs CBC & Chem 7: 06/18/17 11:21 Labs: 12/03/17: CBC: WBC 3.8, Hgb 12.3, platelet 225, lymphocytes 0.5 Iron 44, TIBC 410, iron saturation 10%, ferritin 7.9 Assessment and Plan (1) Iron deficiency anemia Qualifiers: Iron deficiency anemia type: chronic blood loss Qualified Code(s): D50.0 - Iron deficiency anemia secondary to blood loss (chronic) Status: Chronic Iron deficiency anemia, in the setting of gastric bypass and chronic anticoagulation. -Etiology including malabsorption versus blood loss. Could not tolerate oral iron due to irritation. -Hgb is trending downwards, ferritin is very low, 7.9, consistent with iron deficiency. She is symptomatic with fatigue. -Will give IV iron, Feraheme [id number]. She tolerated well in the past, no concernof infusion reactions. -Last colonoscopy 6 years ago, we discussed that she might need to update colonoscopy, she is open to it, referral to Gastroenterology made. -See back in 6 month with CBC, iron studies, and ferritin, sooner if needed. (2) Lymphopenia Status: Chronic Lymphopenia since 05/2014, associated with retroperitoneal and mediastinal lymphadenopathy. -No history of frequent bacterial infections; HIV screen negative. -Treated with a course of Prednisone for autoimmune disease. Off Prednisone since, but feels tired, now on Prednisone 5mg daily. -CT scan on 03/06/17 reviewed, persistent adenopathy. She had bronchoscopy/EBUS biopsy by pulmonology in [place], per patient, nondiagnostic. -I discussed with her that if a definitive diagnosis is a concern, mediastinoscopy to get an entire lymph node may help. -Per rheumatology, this is felt to be related to sarcoidosis. She was taken offPJP prolylaxis by immunology. (3) History of deep venous thrombosis (DVT) of distal vein of right lower extremity Status: Chronic History of right lower extremity DVT 1996, likely unprovoked, associated with Estrogen use. She has Factor V Leiden heterozygosity. -She has a Anthony filter in place is no planned to retrieve. -She is on Xarelto 10mg daily. - Time Spent with Patient Greater than 50% of time spent with patient was for coordination of care (as documented) and [id number] counseling of patient and/or family. 25 - 35 minutes Dictated By: Claudio Alonso MD DD/ 173 Signed By: <Electronically signed by Claudio Alonso MD> 12/23/17 1745 [facility] Work Phone: [phone] Progress note Author Claudio Alonso [facility] June 24, 2017 12:23pm Note Date/Time June 24, 2017 10:42am [facility] [place] [address] Hem/Onc Follow Up Note - OP Signed Patient: Rebecca Nugent MR#: [id number] : 1950 Acct:[id number] Age/Sex: 66 / F Type: REG RCR Copies to: Santana Williamson MD, Irma Diego, Juan R MARTINEZ~ Subjective Date/Time of Service: Date of Service: 06/24/2017 Time of Service: 10:41 Chief Complaint: Follow up appt - Diagnosis DIAGNOSIS: 1. Iron deficiency anemia, in the setting of gastric bypass and chronic anticoagulation. -Etiology including malabsorption versus blood loss. Could not tolerate oral iron due to irritation. -Last colonoscopy 5 years ago, which was free of colon cancer. 2. Lymphopenia since 05/2014, associated with retroperitoneal and mediastinal lymphadenopathy. HIV negative. -Presentation was blurry vision associated with night sweats, placed on Prednisone. Night sweats has resolved. -Coincidental mild retroperitoneal and mediastinal lymphadenopathy on CT abd 09/23/16 (evaluating back pain and fever) and CT chest 11/08/16 (evaluating cough). 06/18/2017: WBC 6.6, Hgb 13.6, MCV 90.4, platelets 201, lymphocyte 0.4, 6.2% 09/23/2016: WBC 13.6, Hgb 9.6, MCV 71.3, platelets 319, lymphocyte 0.3, 2.2% 04/02/2015: WBC 13.8, Hgb 11.2, MCV 81.3, platelets 224,lymphocyte 2% 05/26/2014: WBC 8.4, Hgb 11.0, MCV 84.5, platelets 183, lymphocyte 0.3, 4% 10/19/2013: WBC 4.2, Hgb 11.7, MCV 85.9, platelets 233, lymphocyte 0.8, 18.1% 07/20/2012: WBC 6.4, Hgb 12.6, MCV 85.1, platelets 225, lymphocyte 1.3, 21%. 03/06/2012: WBC 5.4, Hgb 12.2, MCV 92.2, platelets 173, lymphocytes 22.2% 12/12/2011: WBC 6.5, Hgb 13.1, MCV 92.3, platelets 205, lymphocytes 2.2, 34.2% 3. History of right lower extremity DVT 1996, likely unprovoked, associated with Estrogen use. She has Factor V Leiden heterozygosity. -She has a Anthony filter in place is no planned to retrieve. On chronic anticoagulation with Coumadin, planning to switch to Xarelto vs Eliquis. 4. Comorbidities: Morbid obesity status post gastric bypass in 2000; Chronic arthritis; Sleep apnea on CPAP at night; Panic disorder. the pretibial lesions are necrotizing granulomatous vaculitis per second opinionof path at [facility]. 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 Never smoker. HPI: Mrs. Nugent returns for a scheduled follow up. She is on 5 mg Prednisone, doingwell. She denies fever, chills, or lymphadenopathy. 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 She had bronchoscopy biopsy of the mediastinal nodes,pathology was inconclusive patient. - Summary of Therapies Summary of Therapies: For iron deficiency anemia: IV Ferumoxytol 510mg x2 01/2017 For lymphopenia: On PJP prophylaxis per Dr. Diego. Subjective/ROS - Narrative: CONSTITUTIONAL: No weight loss, fever, chills, weakness or fatigue. CARDIOVASCULAR: No chest pain, chest pressure or chest discomfort. No palpitations or edema. RESPIRATORY: No shortness of breath, cough or hemoptysis. GASTROINTESTINAL: No dysphagia, nausea, vomiting or diarrhea. No abdominal pain,melena, hematochezia. GENITOURINARY: No dysuria, urinary frequency or urgency. NEUROLOGICAL: No headache, dizziness, syncope, numbness or tingling in the extremities. MUSCULOSKELETAL: No back pain, or joint pain. Home Medications & Allergies Allergies Allergy/AdvReac Type Severity Reaction Status Date / Time No Known Allergies Allergy Verified 05/15/17 14:19 Home Medications Medication Instructions Recorded Confirmed Type acetaminophen [Tylenol] 500 mg PO Q4-6H PRN 05/15/17 05/15/17 History albuterol sulfate 1 puff INHALATION Q4-6H PRN 05/15/17 05/15/17 History hydrocodone-acetaminophen [[place]] 1 tab PO Q4-6H PRN 05/15/17 05/15/17 History multivitamin 1 tab PO DAILY 05/15/17 05/15/17 History omeprazole 40 mg PO DAILY 05/15/17 05/15/17 History paroxetine HCl [Paxil] 20 mg PO DAILY 05/15/17 05/15/17 History rivaroxaban [Xarelto] 20 mg PO DAILY 05/15/17 05/15/17 History sulfamethoxazole-trimethoprim 1 tab PO MOWEFR 05/15/17 05/15/17 History [Bactrim DS] cholecalciferol (vitamin D3) 100,000 unit PO QWEEK 06/24/17 06/24/17 History [Vitamin D3] prednisone 5 mg PO DAILY 06/24/17 06/24/17 History zinc amino acid chelate 50 mg PO DAILY 06/24/17 06/24/17 History Objective - Height/Weight Height/Weight: Height 5 ft 4 in Weight 84.3 kg - Vital Signs Vital Signs: Last Vital Signs Temp 98 F 06/24/17 10:19 Pulse 55 L 06/24/17 10:19 Resp 20 06/24/17 10:19 BP 119/63 06/24/17 10:19 Pulse Ox 99 06/24/17 10:19 - Emotional Needs Assessment Emotional Needs Assessment: Emotional Needs Identified? No Distress Screening Total 0 Physical Exam Narrative: GENERAL APPEARANCE: In no acute distress. HEENT: Moist and clear, no oral thrush. LUNGS: Clear to auscultation bilaterally, no rales, rhonchi, or crackles. CARDIOVASCULAR: S1 and S2, regular rate and rhythm, no murmurs, gallops, rubs. ABDOMEN: Soft, nontender, bowel sounds normal. No hepatosplenomegaly. No mass palpated. EXTREMITIES: No edema or calf tenderness. NEUROLOGIC: Grossly intact. Results - Labs CBC & Chem 7: 06/18/17 11:21 Labs: Lymph % (Auto) 6.9 % (.) 06/18/17 11:21 Iron 53 ug/dL (40-150) 06/18/17 11:21 TIBC 402 ug/dL (255-450) 06/18/17 11:21 Iron Saturation 13.0 % (20-50) L 06/18/17 11:21 Transferrin 287 mg/dL (180-380) 06/18/17 11:21 Ferritin 13.2 ng/mL (11-306.8) 06/18/17 11:21 Assessment and Plan (1) Iron deficiency anemia Qualifiers: Iron deficiency anemia type: chronic blood loss Qualified Code(s): D50.0 - Iron deficiency anemia secondary to blood loss (chronic) Status: Chronic Iron deficiency anemia, in the setting of gastric bypass and chronic anticoagulation. -Etiology including malabsorption versus blood loss. Could not tolerate oral iron due to irritation. Hgb much improved after IV iron. -Last colonoscopy 5 years ago, which was free of colon cancer. We discussed thatshe might need to update colonoscopy. -No need IV iron at this point, see back in 6 month with CBC, iron studies, and ferritin. (2) Lymphopenia Status: Chronic Lymphopenia since 05/2014, associated with retroperitoneal and mediastinal lymphadenopathy. -Treated with a course of Prednisone for autoimmune disease. Off Prednisone since, but feels tired, now on Prednisone 5mg daily. -No history of frequent bacterial infections. Currently on Bactrim for PJP prophylaxis per immunology. -CT scan on 03/06/17 reviewed, persistent adenopathy. She had bronchoscopy/EBUS biopsy by pulmonology in [place], per patient, nondiagnostic, will get path report. -I discussed with her that if a definitive diagnosis is a concern, mediastinoscopy to get an entire lymph node may help. She will meet with Dr. Williamson in 07/2017 and discuss it. -If she developed recurrent bacterial infections, would check serum immunoglobulin level. If IgG<500, IVIG can be considered considered. 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 (3) History of deep venous thrombosis (DVT) of distal vein of right lower extremity Status: Chronic History of right lower extremity DVT 1996, likely unprovoked, associated with Estrogen use. She has Factor V Leiden heterozygosity. -She has a Anthony filter in place is no planned to retrieve. -She is on Xarelto by PCP, I told her can consider 10mg daily in the future, shewill discuss with PCP. - Time Spent with Patient Greater than 50% of time spent with patient was for coordination of care (as documented) and [id number] counseling of patient and/or family. 25 - 35 minutes Dictated By: Claudio Alonso MD DD/ [id number] Signed By: <Electronically signed by Claudio Alonso MD> 06/24/[address] [facility] Work Phone: Evaluation + Plan note No data available for this section [facility] Evaluation noteNo InformationN[facility] Other Evaluation noteNo assessment information available [facility] Work Phone: Evaluation note* Diagnosis Onset Date Resolution Status History of deep venous throm bosis (DVT) of distal vein of right lower extremity chronic Iron deficiency anemia chron ic Lymphopenia chronic Mediastinal lymphadenopathy chronic [facility] Work Phone: Evaluation note* Diagnosis Routine general medical examination at a health care facility- Primary long-term (current) use of anticoagulants Long-term (current) use of anticoagulants PMR (polymyalgia rheumatica) (CMS/HCC) Polymyalgia rheumatica Mild persistent asthma without complication (CMS/HCC) Ascending aortic aneurysm, unspecified whether ruptured (CMS/HCC) Adrenal insufficiency (CMS/HCC) Glucocorticoid deficiency Age-related osteoporosis without current pathological fracture (CMS/HCC) Factor 5 Leiden mutation, heterozygous (CMS/HCC) Autoimmune disease (CMS/HCC) Autoimmune disease, not elsewhere classified Major depressive disorder, single episode, moderate (HCC) (CMS/HCC) Major depressive disorder, single episode, moderate Chronic fatigue Other malaise and fatigue Secondary hyperparathyroidism (CMS/HCC) Secondary hyperparathyroidism (of renal origin) Lymphopenia Lymphocytopenia Systolic murmur Undiagnosed cardiac murmurs Routine general medical examination at health care facility Routine general medical examination at a health care facility documented in this encounter [facility] HealthcareEvaluation note* Diagnosis Gastro-esophageal reflux disease without esophagitis documented in this encounter [facility] HealthcareEvaluation note* Diagnosis Onset Date Resolution Status Shoulder impingement syndrome acute [facility] Work Phone: Evaluation note* Diagnosis Onset Date Resolution Status Shoulder impingement syndrome acute Rotator cuff tendonitis none active Shoulder impingement syndrome acute Strain of right biceps acute Strain of right deltoid muscle acute Rotator cuff tendonitis none active [facility] Work Phone: Evaluation note* Diagnosis Onset Date Resolution Status Shoulder impingement syndrome acute Rotator cuff tendonitis none active Shoulder impingement syndrome acute Strain of right biceps acute Strain of right deltoid muscle acute Rotator cuff tendonitis none active History of deep venous throm bosis (DVT) of distal vein of right lower extremity chronic Iron deficiency anemia chron ic Lymphopenia chronic Mediastinal lymphadenopathy chronic Shoulder impingement syndrome acute Strain of right biceps acute Strain of right deltoid muscle acute Rotator cuff tendonitis none active [facility] Work Phone: Evaluation note* Diagnosis Onset Date Resolution Status Shoulder impingement syndrome acute Rotator cuff tendonitis none active Shoulder impingement syndrome acute Strain of right biceps acute Strain of right deltoid muscle acute Rotator cuff tendonitis none active Shoulder impingement syndrome acute Strain of right biceps acute Strain of right deltoid muscle acute Rotator cuff tendonitis none active History of deep venous throm bosis (DVT) of distal vein of right lower extremity chronic Iron deficiency anemia chron ic Lymphopenia chronic Mediastinal lymphadenopathy [facility] Work Phone: Evaluation note* Diagnosis Need for vaccination- Primary Need for prophylactic vaccination and inoculation against unspecified single disease 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 Long-term (current) use of anticoagulants Acute pain of right shoulder Adrenal insufficiency (CMS/HCC) Glucocorticoid deficiency Age-related osteoporosis without current pathological fracture (CMS/HCC) Autoimmune disease (CMS/HCC) Autoimmune disease, not elsewhere classified Factor 5 Leiden mutation, heterozygous (CMS/HCC) Major depressive disorder, single episode, moderate (HCC) (CMS/HCC) Major depressive disorder, single episode, moderate Mild persistent asthma without complication (CMS/HCC) documented in this encounter [facility] HealthcareEvaluation note* Diagnosis Onset Date Resolution Status Shoulder impingement syndrome acute Rotator cuff tendonitis none active Shoulder impingement syndrome acute Strain of right biceps acute Strain of right deltoid muscle acute Rotator cuff tendonitis none active Shoulder impingement syndrome acute Strain of right biceps acute Strain of right deltoid muscle acute Rotator cuff tendonitis none active History of deep venous throm bosis (DVT) of distal vein of right lower extremity chronic Iron deficiency anemia chron ic Lymphopenia chronic Mediastinal lymphadenopathy chronic History of deep venous throm bosis (DVT) of distal vein of right lower extremity chronic Iron deficiency anemia chron ic Lymphopenia chronic Mediastinal lymphadenopathy chronic [facility] Work Phone: Evaluation note* Diagnosis Onset Date Resolution Status Shoulder impingement syndrome acute Rotator cuff tendonitis none active Shoulder impingement syndrome acute Strain of right biceps acute Strain of right deltoid muscle acute Rotator cuff tendonitis none active Shoulder impingement syndrome acute Strain of right biceps acute Strain of right deltoid muscle acute Rotator cuff tendonitis none active History of deep venous throm bosis (DVT) of distal vein of right lower extremity chronic Iron deficiency anemia chron ic Lymphopenia chronic Mediastinal lymphadenopathy chronic History of deep venous throm bosis (DVT) of distal vein of right lower extremity chronic Iron deficiency anemia chron ic Lymphopenia chronic Mediastinal lymphadenopathy chronic Right rotator cuff tear arthropathy acute Right shoulder pain acute Shoulder impingement syndrome acute Strain of right biceps acute [facility] Work Phone: Evaluation note* Diagnosis Factor 5 Leiden mutation, heterozygous (CMS/HCC) documented in this encounter [facility] HealthcareEvaluation note* Diagnosis Panic disorder (CMS/HCC) Panic disorder without agoraphobia Moderate episode of recurrent major depressive disorder (CMS/HCC) documented in this encounter [facility] HealthcareEvaluation note* Diagnosis Nonrheumatic aortic valve stenosis- Primary Dilated aortic root (CMS-HCC) Thoracic aneurysm without mention of rupture History of DVT of lower extremity BMI 27.0-27.9,adult Anticoagulated Encounter for long-term (current) use of anticoagulants documented in this encounter [facility] Work Phone: Evaluation note* Diagnosis Panic disorder (CMS/HCC) Panic disorder without agoraphobia Moderate episode of recurrent major depressive disorder (HCC) (CMS/HCC) documented in this encounter [facility] HealthcareEvaluation note* Diagnosis Panic disorder (CMS/HCC) Panic disorder without agoraphobia Moderate episode of recurrent major depressive disorder (CMS/HCC) documented in this encounter [facility] HealthcareEvaluation note* Diagnosis Dilated aortic root (CMS-HCC)- Primary Thoracic aneurysm without mention of rupture Nonrheumatic aortic valve stenosis History of DVT of lower extremity Factor V Leiden (Multi) Primary hypercoagulable state Anticoagulated Encounter for long-term (current) use of anticoagulants BMI 27.0-27.9,adult documented in this encounter [facility] Work Phone: Evaluation note* Diagnosis 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- Primary Long-term (current) use of anticoagulants documented in this encounter [facility] HealthcareEvaluation note* Diagnosis Tertiary hyperparathyroidism (CMS/HCC)- Primary Other hyperparathyroidism Kidney stone Calculus of kidney H/O gastric bypass Age-related osteoporosis without current pathological fracture (CMS/HCC) documented in this encounter [facility] HealthcareEvaluation note* Diagnosis Routine general medical examination at a health care facility- Primary long-term (current) use of anticoagulants Long-term (current) use of anticoagulants Adrenal insufficiency (CMS/HCC) Glucocorticoid deficiency Age-related osteoporosis without current pathological fracture (CMS/HCC) Autoimmune disease (CMS/HCC) Autoimmune disease, not elsewhere classified Factor 5 Leiden mutation, heterozygous (CMS/HCC) Major depressive disorder, single episode, moderate (HCC) (CMS/HCC) Major depressive disorder, single episode, moderate Mild persistent asthma without complication (CMS/HCC) Obstructive sleep apnea syndrome Obstructive sleep apnea (adult) (pediatric) PMR (polymyalgia rheumatica) (CMS/HCC) Polymyalgia rheumatica Postoperative malabsorption (CMS/HCC) Secondary hyperparathyroidism (CMS/HCC) Secondary hyperparathyroidism (of renal origin) Ascending aortic aneurysm, unspecified whether ruptured (CMS/HCC) Moderate episode of recurrent major depressive disorder (CMS/HCC) History of deep venous thrombosis (DVT) of distal vein of right lower extremity Mediastinal lymphadenopathy Enlargement of lymph nodes Primary osteoarthritis of both knees Postmenopausal Asymptomatic postmenopausal status (age-related) (natural) Aortic root dilatation (CMS/HCC) Thoracic aneurysm without mention of rupture Osteoporosis, unspecified osteoporosis type, unspecified pathological fracture presence (CMS/HCC) Nonrheumatic aortic valve stenosis documented in this encounter [facility] HealthcareHistory and physical note Author Michael Ramirez [facility] June 10, 2023 11:21am Note Date/Time June 10, 2023 1 1:21am [facility] [address] [place] [address] Gastroenterology H&P Signed Patient: Rebecca Herrera MR#: [id number] : 1950 Acct:[id number] Age/Sex: 72 / F Adm Date: 3 Loc: Room: Type: [facility] Attending Dr: Michael Ramirez MD Copies to: MD Radha Rojas MD~ Date of Service: 06/10/2023 HISTORY & PHYSICAL: Patient's history with special attention to the cardiovascular, pulmonary systems and the current problem was reviewed with the patient immediately prior to the procedure. Present medications and doses reviewed in the EMR. Allergies and pertinent laboratory tests were also reviewedat this time in the EMR. The physical examination, as below, was then performed. Indication, assessment and HPI: 72-year-old female here for EGD/colonoscopy for evaluation of iron deficiency anemia Family history of GI malignancy? No PHYSICAL EXAMINATION Mouth and Pharynx : Moist mucus membranes, normal dentition Cardiac: Regular rate, regular rhythm Pulmonary: Clear to auscultation bilaterally, no wheezing Neurological: Alert and oriented x3, no focal deficits noted Abdomen: Abdomen soft, non-tender REVIEW OF SYSTEMS Constitutional: Denies malaise, fevers Cardiovascular: Denies chest pain, palpitations Respiratory: Denies shortness of breath, wheezing Gastrointestinal: Per HPI Genitourinary: Denies dysuria, polyuria Musculoskeletal: Denies joint swelling, joint stiffness Neurological: Denies numbness, tingling Integumentary: Denies rashes, skin lesions Endocrine: Denies fatigue, weight loss Written informed consent obtained from the patient. Risks (including but not limited to perforation, infection, bloating, bleeding, need for emergent surgeryand loss of life), benefits and alternatives explained and questions answered. The patient verbalized understanding. Based on history patient is an appropriate candidate for the procedure. Michael Ramirez M.D. Documented By: Michael Ramirez MD 06/10/23 1120 Signed By: <Electronically signed by Michael Ramirez MD> 06/10/[address] [facility] Work Phone: History general Narrative - Reported* Type Description Date Medical History LIDEN FACTOR C Medical History BRADICARDIA Medical History PANIC DISORDER Medical History DVT RT LE (97) Medical History SLEEP APNEA Medical History LICHEN SCHLEROSIS Medical History GERD Surgical History BILIOPANCREATIC BYPASS 10/2000 Surgical History BIOPSY 09/2006 Surgical History X 2 1973,1979 Surgical History D&C 1977 Surgical History CHOLY 1988 Surgical History HEEL SPUR 1997 Surgical History ARTHROSCOPIC KNEE 1998 Surgical History APPENDECTOMY 2000 Surgical History GREENFEILD FILTER INSERTION 200 1 Surgical History HAMMER TOE CORRECTION- BILAT 2004 Surgical History TRIGGER FINGER RELEASE - RT 12/03 012 Surgical History TRIGGER FINGER RELEASE - RT 2011 Surgical History D&C 08/2016 Surgical History knee replacement 12/2018 [facility] [facility] Other Hospital Discharge instructions Additional Instructions DISCHARGE INSTRUCTIONS FOR UPPER ENDOSCOPY WHAT TO EXPECT: - You may feel full, gassy or cramping after your procedure. In some cases, this may be from a few hours to a day. Walking may help relieve the discomfort. - Your throat may feel sore today from the scope that the doctor passed through your throat to visualize your stomach. Take a throat lozenge or suck on ice to ease the discomfort. - You may notice some streaks of blood in your sputum if the doctor has taken a biopsy. - You should begin to recover from anesthesia within 1 hour of the procedure, however may feel groggy for the next 24 hours. DO's AND DON'Ts: - Call your doctor right away if you have a hard abdomen, severe pain, vomiting or if you cough up large amounts of blood. - Call your doctor if you develop any rashes, hives or difficulty breathing. - If you take 81 mg aspirin for your heart it is safe to resume this medication. - If you take other blood thinner medications your doctor will instruct you when these can safely be resumed. - Do NOT drive for 24 hours. - Do NOT operate machinery such as power tools, lawn mowers, snow blowers, sewing machines, etc. for 24 hours. - Avoid alcoholic beverages and drugs for allergies, nerves, or sleep. - Do NOT stay alone. Do NOT leave your child unattended. - Do NOT make important personal or business decisions or sign any legal documents. - Eat solid foods and drink liquids in smaller amounts than usual until normal appetite returns. If you should experience an upset stomach, liquids high in sugar content (soda, Dayron-Aid, non-acid juices) are recommended. - Do NOT smoke. - Do take it easy today. You need not stay in bed, but avoid strenuous activities such as jogging or working out. DISCHARGE INSTRUCTIONS FOR COLONOSCOPY WHAT TO EXPECT: - You may feel full, gassy or cramping after your procedure. In some cases, this may be from a few hours to a day. Walking may help relieve the discomfort. - If you have polyp(s) removed you may note some minor bloody discharge after your first bowel movements. - You should begin to recover from anesthesia within 1 hour of the procedure, however may feel groggy for the next 24 hours. DO's AND DON'Ts: - Call your doctor right away if you have a hard abdomen, sever pain, are passing lots of bright red blood or clots. - Call your doctor if you develop any rashes, hives or difficulty breathing. - Let your doctor know if you have not had a bowel movement by 3 days after your procedure. - If you take 81 mg aspirin for your heart it is safe to resume this medication. - If you take other blood thinner medications your doctor will instruct you when these can safely be resumed. - Do NOT drive for 24 hours. - Do NOT operate machinery such as power tools, lawn mowers, snow blowers, sewing machines, etc. for 24 hours. - Avoid alcoholic beverages and drugs for allergies, nerves, or sleep. - Do NOT stay alone. Do NOT leave your child unattended. - Do NOT make important personal or business decisions or sign any legal documents. - Eat solid foods and drink liquids in smaller amounts than usual until normal appetite returns. If you should experience an upset stomach, liquids high in sugar content (soda, Dayron-Aid, non-acid juices) are recommended. - You can resume normal activities tomorrow. FOLLOW UP & RECOMMENDATIONS: -increase omeprazole to 40 mg daily -Avoid constipation: Avoid dehydration, maintain regular activity/exercise. Can add Miralax 17gm PO Qday and titrate up to twice or three times daily if needed. -Start Nitroglycerin 0.2 % topical -Increase water intake -Follow up pathology -Notify the doctor if you have any problems. - Office number [phone]. [facility] Work Phone: Hospital Discharge instructions Additional Instructions Take an extra dose of your warfarin today. Follow-up with your primary care physician within the next few days for recheck of her INR. You may need an adjustment in the dose and/or frequency of the warfarin. Follow-up with your family doctor for monitoring of your thoracic aortic aneurysm. Return here for any worsening or recurrent symptoms.[facility] Work Phone: Hospital Discharge instructionsAmbulatory Orders* MR smith RT wo con Time Frame: 04/23/24, Location: Determined By Patient [facility] Work Phone: InstructionsNot on filedocumented in this encounter [facility] note Author Robert Ledezma [facility] April 22, 2023 9:36am Note Date/Time April 22, 2023 9:18am [facility] [place] [address] Hem/Onc Follow Up Note - OP Signed Patient: Rebecca Herrera MR#: [id number] : 1950 Acct:[id number] Age/Sex: 72 / F Type: REG RCR Copies to: Radha Mckeon MD~ Date of Service: 04/22/2023 Time of Service: 09:17 - Assessment & Plan (1) Iron deficiency anemia Plan: Iron deficiency anemia, in the setting of gastric bypass and chronic anticoagulation; repeat EGD/colonoscopy on 02/16/[address] Alvares at [facility] in [place], no concerns of malignancy. She does not tolerate oral iron well, malabsorbs with gastric bypass history. Will offer her IV iron venofer 300mg IV x 3 doses. Lymphopenia Lymphopenia since 05/2014, associated with retroperitoneal and mediastinal lymphadenopathy. -No history of frequent bacterial infections; HIV screen negative. -Treated with a course of Prednisone for autoimmune disease. Off Prednisone since August 2017, doing well, Follows with Dr. Holt. Mediastinal lymphadenopathy She had bronchoscopy/EBUS biopsy by pulmonology in [place], per patient, nondiagnostic. -[place] to be sarcoidosis, following pulmonology History of deep venous thrombosis (DVT) of distal vein of right lower extremity History of right lower extremity DVT 1996, likely unprovoked, associated with Estrogen use. She has Factor V Leiden heterozygosity. -She has a Anthony filter in place is no planned to retrieve. She is on coumadin now. We discussed that she does not technically need lifelong anticoagulation, but she would be much more comfortable staying on it. (2) Lymphopenia (3) Mediastinal lymphadenopathy (4) History of deep venous thrombosis (DVT) of distal vein of right lower extremity Follow Up Instructions: get copy of dr. miller note, get dr radha garcia note. f/u with me in 1 year. refer for GI consult, recurrent blood loss, no egd/colon in [address] Alvares in [place]. cbc,. cmp iron studies, vitamins adek, b1, b6, b12, folate, mma, zinc selenium. in 6 months. cbc, cmp, iron studies prior to f/u in a year cont mvi. Will offer her IV iron venofer 300mg IV x 3 doses. reclast in 2 months. - History of Present Illness Chief Complaint: Patient is here for a one year follow up [facility] labs for review. No concerns voiced at this time. HPI: PCP is Dr. Radha Garcia. 04/25/2022: Interval history: Remy returns for a scheduled yearly follow-up. She has not received oral iron since December 2017. Clinically, she feels good. She is sometimes tired; but she feels this is expected fatigue as she is a very active person in general. She denies any changes in fatigue; chest pain, shortness of breath, palpitations, exertional dyspnea; pica or leg cramping. Shedenies melena, hematochezia or bright red blood per rectum. She is taking ferrous sulfate once daily; overall this is well tolerated. She has history of gastric bypass surgery. PAST MEDICAL HISTORY: Clinical diagnosis of sarcoidosis; Morbid obesity status post gastric bypass in 2000; Chronic arthritis; Sleep apnea on CPAP at night; Panic disorder. 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 Never smoker. 04/22/23 she is doing well overall. no black or bloody stools. feelign well overall. She is not anemic hb 12.6. Iron sat and ferritin very low. follows with dr hlot for unnamed autoimmune history. does not tolerate oral iron. She follows with Dr. miller for low bone density. she takes vitamin d but notcalcium for history of renal stones. - Physical Exam ECOG PS:0 General : patient is alert and oriented to person place and time, no acute distress. Neck: no JVD or thyromegaly. Lymph: no cervical, supraclavicular, axillary adenopathy. Heart: regular rate and rhythm no murmurs rubs or gallops. Abdomen: soft, nontender,, nondistended, no hepatosplenomegaly. Lungs: clear to auscultation bilaterally. No wheezes, rales, rhonchi. Extremities: no clubbing cyanosis - Time with Patient Coordination of Care & Counseling Time: Greater than 50% of time spent with patient was for coordination of care (as documented) and [id number] counseling of patient and/or family. Additional Data - Additional Objective Data Height/Weight: Height 5 ft 4 in Weight 77.156 kg Vital Signs: 04/22/23 08:55 Temperature 97.5 F L Pulse Rate [Right Brachial] 47 L Respiratory Rate 20 Blood Pressure [Left Arm] 129/67 02 Sat by Pulse Oximetry 99 Oxygen Delivery Method Room Air - Lab Results Diagram of Most Recent CBC and CMP 04/18/22 11:32 - Home Medications and Allergies Allergies/Adverse Reactions: Allergies No Known Allergies Allergy (Verified 04/22/23 08:54) Home Medications: Home Medications acetaminophen 325 mg tablet (Tylenol) 2 tab PO DAILY PRN Pain 05/15/17 [History Confirmed 04/22/23] albuterol sulfate 90 mcg/actuation aerosol inhaler 1 puff inhalation Q4-6H PRN Shortness Of Breath Or Wheezing 05/15/17 [History Confirmed 04/22/23] multivitamin 1 tab PO DAILY 05/15/17 [History Confirmed 04/22/23] paroxetine HCl 20 mg tablet (Paxil) 30 mg PO DAILY 05/15/17 [History Confirmed 04/22/23] cholecalciferol (vitamin D3) 25 mcg (1,000 unit) capsule (Vitamin D3) 100,000 unit PO DIRECTED 06/24/17 [History Confirmed 04/22/23] hydroxychloroquine 200 mg tablet (Plaquenil) 200 mg PO BID 12/30/18 [History Confirmed 04/22/23] bupropion HCl 150 mg 24 hr tablet, extended release 150 mg PO QAM 04/25/20 [History Confirmed 04/22/23] famotidine 20 mg tablet 20 mg PO QHS 04/25/20 [History Confirmed 04/22/23] warfarin 2 mg tablet 2 mg PO DAILY 04/24/21 [History Confirmed 04/22/23] Dictated By: Robert Ledezma II, DO DD/ 6 Signed By: <Electronically signed by Robert Ledezma II, DO> 04/22/[address] [facility] Work Phone: Progress note No data available for this section [facility] Summary Purpose Family History Relationship Condition Age at Onset Recorded Date/T joshua Not Specified Malignant neoplasm of ovary Unknown Heart problem Unknown father Malignant melanoma Unknown Alzheimer's disease Unknown Relationship Condition Age at Onset Recorded Date/T joshua Not Specified Malignant neoplasm of ovary Unknown Heart problem Unknown father Alzheimer's disease Unknown Malignant melanoma Unknown Unknown Malignant neoplasm of lung Unknown family member Unknown Not Specified Unknown sister Alzheimer's disease Unknown Relationship Condition Age at Onset Recorded Date/T joshua mother Malignant neoplasm of ovary Unknown Heart problem Unknown father Alzheimer's disease Unknown Malignant melanoma Unknown Unknown Malignant neoplasm of lung Unknown family member Unknown mother Unknown sister Alzheimer's disease Unknown Advance Directives Advance Directive Response Recorded Date/ Time Advance Directives No August 08, 2017 6:27am Advance Directive Response Recorded Date/ Time Advance Directives No August 08, 2017 5:27am Documents on File Type Date Recorded 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 Advance Directives and Living Will 09/18/2023 10:00 AM [facility] POA & Living Will Chief Complaint and Reason for Visit Chief Complaint Iron Deficiency Anem ia E21.1 E55.9 R79.0 Z98.84 Reason for Visit History of deep veno us thrombosis (DVT) of distal vein of right lower extremity Iron deficiency anemia Lymphopenia Mediastinal lymphadenopathy Chief Complaint Screening Chief Complaint M70.62 D50.9 Chief Complaint M70.62 D50.9 Iron Deficiency Anemia Reason for Visit History of deep veno us thrombosis (DVT) of distal vein of right lower extremity Iron deficiency anemia Lymphopenia Mediastinal lymphadenopathy Chief Complaint M70.62 D50.9 Iron Deficiency Anemia Iron Deficiency Anemia Reason for Visit History of deep veno us thrombosis (DVT) of distal vein of right lower extremity Iron deficiency anemia Lymphopenia Mediastinal lymphadenopathy Chief Complaint left parotid mass Chief Complaint left parotid mass i35.0 Chief Complaint left parotid mass i35.0 left parotid mass Iron Deficiency Anemia left arm pain Reason for Visit History of deep veno us thrombosis (DVT) of distal vein of right lower extremity Iron deficiency anemia Lymphopenia Mediastinal lymphadenopathy Chief Complaint left parotid mass i35.0 left parotid mass Iron Deficiency Anemia left arm pain low abd pain Reason for Visit History of deep veno us thrombosis (DVT) of distal vein of right lower extremity Iron deficiency anemia Lymphopenia Mediastinal lymphadenopathy Chief Complaint left parotid mass i35.0 left parotid mass Iron Deficiency Anemia left arm pain low abd pain N20.0 Reason for Visit History of deep veno us thrombosis (DVT) of distal vein of right lower extremity Iron deficiency anemia Lymphopenia Mediastinal lymphadenopathy Chief Complaint low abd pain N20.0 M25.511 - Pain in right shoulder OP CREDIT PROFESSIONAL RT SHOULDER PAIN NX Reason for Visit Shoulder impingement syndrome Chief Complaint M25.511 - Pain in ri ght shoulder OP CREDIT PROFESSIONAL RT SHOULDER PAIN NX OP SP INCREASED RT SHOULDER PAIN Reason for Visit Shoulder impingement syndrome Rotator cuff tendonitis Shoulder impingement syndrome Strain of right biceps Strain of right deltoid muscle Rotator cuff tendonitis Chief Complaint M25.511 - Pain in ri ght shoulder OP CREDIT PROFESSIONAL RT SHOULDER PAIN NX OP SP INCREASED RT SHOULDER PAIN Iron Deficiency Anemia 4 WEEKS Reason for Visit Shoulder impingement syndrome Rotator cuff tendonitis Shoulder impingement syndrome Strain of right biceps Strain of right deltoid muscle Rotator cuff tendonitis History of deep venous thrombosis (DVT) of distal vein of right lower extremity Iron deficiency anemia Lymphopenia Mediastinal lymphadenopathy Shoulder impingement syndrome Strain of right biceps Strain of right deltoid muscle Rotator cuff tendonitis Chief Complaint M25.511 - Pain in ri ght shoulder OP CREDIT PROFESSIONAL RT SHOULDER PAIN NX OP SP INCREASED RT SHOULDER PAIN 4 WEEKS Follow Up Reason for Visit Shoulder impingement syndrome Rotator cuff tendonitis Shoulder impingement syndrome Strain of right biceps Strain of right deltoid muscle Rotator cuff tendonitis Shoulder impingement syndrome Strain of right biceps Strain of right deltoid muscle Rotator cuff tendonitis History of deep venous thrombosis (DVT) of distal vein of right lower extremity Iron deficiency anemia Lymphopenia Mediastinal lymphadenopathy Chief Complaint M25.511 - Pain in ri ght shoulder OP CREDIT PROFESSIONAL RT SHOULDER PAIN NX OP SP INCREASED RT SHOULDER PAIN 4 WEEKS Follow Up M35.9 Reason for Visit Shoulder impingement syndrome Rotator cuff tendonitis Shoulder impingement syndrome Strain of right biceps Strain of right deltoid muscle Rotator cuff tendonitis Shoulder impingement syndrome Strain of right biceps Strain of right deltoid muscle Rotator cuff tendonitis History of deep venous thrombosis (DVT) of distal vein of right lower extremity Iron deficiency anemia Lymphopenia Mediastinal lymphadenopathy Chief Complaint M25.511 - Pain in ri ght shoulder OP CREDIT PROFESSIONAL RT SHOULDER PAIN NX OP SP INCREASED RT SHOULDER PAIN 4 WEEKS Follow Up M35.9 s46.211a Reason for Visit Shoulder impingement syndrome Rotator cuff tendonitis Shoulder impingement syndrome Strain of right biceps Strain of right deltoid muscle Rotator cuff tendonitis Shoulder impingement syndrome Strain of right biceps Strain of right deltoid muscle Rotator cuff tendonitis History of deep venous thrombosis (DVT) of distal vein of right lower extremity Iron deficiency anemia Lymphopenia Mediastinal lymphadenopathy History of deep venous thrombosis (DVT) of distal vein of right lower extremity Iron deficiency anemia Lymphopenia Mediastinal lymphadenopathy Chief Complaint M25.511 - Pain in ri ght shoulder OP CREDIT PROFESSIONAL RT SHOULDER PAIN NX OP SP INCREASED RT SHOULDER PAIN 4 WEEKS Follow Up M35.9 s46.211a MRI RESULTS Reason for Visit Shoulder impingement syndrome Rotator cuff tendonitis Shoulder impingement syndrome Strain of right biceps Strain of right deltoid muscle Rotator cuff tendonitis Shoulder impingement syndrome Strain of right biceps Strain of right deltoid muscle Rotator cuff tendonitis History of deep venous thrombosis (DVT) of distal vein of right lower extremity Iron deficiency anemia Lymphopenia Mediastinal lymphadenopathy History of deep venous thrombosis (DVT) of distal vein of right lower extremity Iron deficiency anemia Lymphopenia Mediastinal lymphadenopathy Right rotator cuff tear arthropathy Right shoulder pain Shoulder impingement syndrome Strain of right biceps Chief Complaint Admit Date cough, chest congestion(in car) August 03, 2024 11:30am OP SP RT SHOULDER PAIN August 30 9:49am Reason for Visit Admit Date COVID August 03, 2024 11:30am Right rotator cuff tear arthropathy Fabian celestino 27th, 2025 9:49am Right shoulder pain August 30, 2024 9 :49am Shoulder impingement syndrome August 302024 9:49am Strain of right biceps August 30 9:49am Chief Complaint Admit Date cough, chest congestion(in car) August 03, 2024 11:30am OP SP RT SHOULDER PAIN August 30 9:49am M35.9 September 27, 2024 12:36pm Reason for Referral Specialty Diagnoses / Procedures Referred By Contac t Referred To Contact Diagnoses Nonrheumatic aortic valve stenosis Procedures ECG 12 Lead Gely Snow MD [address] [facility] [address] [place] [address] Referral ID Status Reason Start Date Expiration Date V isits Requested Visits Authorized [id number] Authorized 02/12/2024 02/11/2025 1 1 Specialty Diagnoses / Procedures Referred By Contac t Referred To Contact Cardiology Diagnoses Nonrheumatic aortic valve stenosis Procedures Follow Up In Cardiology Gely Snow MD [address] [facility] [address] [place] [address] Gely Snow MD [address] [facility] [address] [place] [address] Referral ID Status Reason Start Date Expiration Date V isits Requested Visits Authorized [id number] Authorized 02/12/2024 02/11/2025 1 1 Specialty Diagnoses / Procedures Referred By Contac t Referred To Contact Radiology Diagnoses Ascending aortic aneurysm, unspecified whether ruptured ([facility]) Procedures CT chest w IV contrast Radha Mckeon MD [address] [place] [address] Referral ID Status Reason Start Date Expiration Date V isits Requested Visits Authorized [id number] Pending Review 09/09/2023 03/07/2024 1 1 Additional Source Comments INFORMATION SOURCE (unrecogn ized section and content) DATE CREATED AUTHOR 07/14/2018 [facility] DATE CREATED AUTHOR AUTHOR'S ORGANIZ ATION 03/24/2019 [facility] DATE CREATED AUTHOR AUTHOR'S ORGANIZ ATION 12/15/2019 [facility] DATE CREATED AUTHOR AUTHOR'S ORGANIZ ATION 09/30/2022 [facility] DATE CREATED AUTHOR AUTHOR'S ORGANIZ ATION 06/01/2024 [facility] DATE CREATED AUTHOR AUTHOR'S ORGANIZ ATION 08/13/2024 [facility] DATE CREATED AUTHOR AUTHOR'S ORGANIZ ATION 09/16/2024 [facility] DATE CREATED AUTHOR AUTHOR'S ORGANIZ ATION 09/19/2024 [facility] DATE CREATED AUTHOR AUTHOR'S ORGANIZ ATION 09/28/2024 [facility] DATE CREATED AUTHOR AUTHOR'S ORGANIZ ATION 09/28/2024 [facility] REASON FOR VISIT (unrecogniz ed section and content) Reason Comments Medicare Annual Wellness Visit Subsequen t Reason Comments Med Refill Reason Comments NEW PATIENT ASSESSMENT Reason Comments Follow-up Reason Comments counseling session Reason Comments Establish Care Ref.dr. montoya Pre-op Clearance Kidney stone Specialty Diagnoses / Procedures Referred By Bharti garcia Referred To Contact Diagnoses Nonrheumatic aortic valve stenosis Procedures ECG 12 Lead Gely Snow MD [address] [facility] [address], [address] [address] Referral ID Status Reason Start Date Expiration Date V isits Requested Visits Authorized [id number] Authorized 02/12/2024 02/11/2025 1 1 Reason Comments Follow-up 6m Specialty Diagnoses / Procedures Referred By Bharti garcia Referred To Contact Cardiology Diagnoses Nonrheumatic aortic valve stenosis Procedures Follow Up In Cardiology Gely Snow MD [address] [facility] [address], [address] [address] Phone: tel: fax: Gely Snow MD [address] [facility] [address], [address] [address] Phone: tel: fax: Referral ID Status Reason Start Date Expiration Date V isits Requested Visits Authorized [id number] Pending Review 02/12/2024 02/11/2025 1 1 Reason Comments Thyroid Problem Follow-up 1.5 YRS 09/2023 [facility] Specialty Diagnoses / Procedures Referred By Contac t Referred To Contact Behavioral Health Diagnoses Panic disorder (episodic paroxysmal anxiety) ([facility]) Procedures LA PSYCHIATRIC DIAGNOSTIC EVALUATION LA PSYCHOTHERAPY W/PATIENT 60 MINUTES LA PSYCHOTHERAPY W/PATIENT 45 MINUTES LA PSYCHOTHERAPY W/PATIENT 30 MINUTES Sadaf Calhoun S, [employer] [address] [place] [address] Phone: tel: fax: Sadaf Calhoun S, [employer] [address] [place] [address] Phone: tel: fax: Referral ID Status Reason Start Date Expiration Date V isits Requested Visits Authorized [id number] Closed Consult and Treat 09/06/2024 03/05/2025 99 99 Reason Comments Medicare Annual Wellness Visit [facility] Specialty Diagnoses / Procedures Referred By Contac t Referred To Contact Behavioral Health Diagnoses Panic disorder (episodic paroxysmal anxiety) ([facility]) Procedures LA PSYCHIATRIC DIAGNOSTIC EVALUATION LA PSYCHOTHERAPY W/PATIENT 60 MINUTES LA PSYCHOTHERAPY W/PATIENT 45 MINUTES LA PSYCHOTHERAPY W/PATIENT 30 MINUTES Sadaf Calhoun, [employer] [address] [place] [address] Phone: tel: fax: Sadaf Calhoun, [employer] [address] [place] [address] Phone: tel: fax: Referral ID Status Reason Start Date Expiration Date V isits Requested Visits Authorized [id number] Closed Consult and Treat 09/06/2024 03/05/2025 99 99 Goals (unrecognized section and content) Goals may be documented in a n alternate section Care Teams (unrecognized sec tion and content) Team Status: Active Member Role Status Dates Radha Mckeon MD Primary Care Provider Active Team Status: Inactive Member Role Status Dates Radha Mckeno MD Primary Care Provider Active Sta rt: September 16, 2023 End: September 16, 2023 Neto Sheets DO Attending Provider Active S tart: September 16, 2023 End: September 16, 2023 Team Status: Active Member Role Status Dates Radha Blancas APRN Attending Provider Vijay Mckeon MD Primary Care Provider Active Team Status: Inactive Member Role Status Dates Radha Mckeon MD Primary Care Provider Active Venkat Miller MD Attending Provider Active Team Status: Inactive Member Role Status Dates Radha Mckeon MD Primary Care Provider Active Laina Morales APRN Attending Provider Active Team Status: Inactive Member Role Status Dates Radha Mckeon MD Primary Care Provider Active Tyrese Swanson MD Attending Provider Active Team Status: Inactive Member Role Status Lin Mckeon MD Primary Care Provider Active Patricio Cifuentes MD Attending Provider Active Team Status: Active Member Role Status Dates Radha Mckeon MD Primary Care Provider Active Robert Ledezma II, DO Attending Provider Active Team Status: Inactive Member Role Status Lin Mckeon MD Primary Care Provider Active Michael Ramirez MD Attending Provider Active Print Graphic Designer Relationship Specialty Start Date End Date Radha Mckeon MD [address] [facility] [place] [address] PCP - General Family Medicine 12/27/22 Pippa Archer NP [address] [facility] [place] [address] Nurse Practitioner Family Medicine 12/27/22 Print Graphic Designer Relationship Specialty Start Date End Date Radha Mckeon MD [address] [facility] [place] [address] PCP - General Family Medicine 12/27/22 Pippa Archer NP [address] [facility] [place] [address] Nurse Practitioner Family Medicine 12/27/22 Print Graphic Designer Relationship Specialty Start Date End Date Radha Mckeon MD [address] [facility] [place] [address] PCP - General Family Medicine 12/27/22 Pippa Archer, CREDIT PROFESSIONAL [address] [facility] [place] [address] Nurse Practitioner Family Medicine 12/27/22 Print Graphic Designer Relationship Specialty Start Date End Date Radha Mckeon MD [address] [facility] [place] [address] PCP - General Family Medicine 12/27/22 Pippa Archer, RADHA [address] [facility] [place] [address] Nurse Practitioner Family Medicine 12/27/22 Print Graphic Designer Relationship Specialty Start Date End Date Radha Mckeon MD [address] [facility] [place] [address] PCP - General Family Medicine 12/27/22 Pippa Archer, RADHA [address] [facility] [place] [address] Nurse Practitioner Family Medicine 12/27/22 Team Status: Inactive Member Role Status Lin Mckeon MD Primary Care Provide r, Attending Provider Active Start: September 23, 2023 End: September 23, 2023 Team Status: Inactive Member Role Status Lin Mckeon MD Primary Care Provider Active Sta rt: September 29, 2023 End: September 29, 2023 Neto Sheets DO Attending Provider Active S tart: September 29, 2023 End: September 29, 2023 Team Status: Active Member Role Status Lin Mckeon MD Primary Care Provider Active Sta rt: October 24, 2023 Robert Ledezma II, DO Attending Provider Active Start: October 24, 2023 Team Status: Inactive Member Role Status Lin Mckeon MD Primary Care Provider Active Sta rt: November 28, 2023 End: November 29, 2023 Agustín Rodriges DO Emergency Provider Active Start: November 28, 2023 End: November 29, 2023 Team Status: Inactive Member Role Status Lin Mckeon MD Primary Care Provider Active Sta rt: December 01, 2023 End: December 02, 2023 Aby Acosta MD Emergency Provider Active Start: December 01, 2023 End: December 02, 2023 Team Status: Inactive Member Role Status Lin Mckeon MD Primary Care Provider Active Sta rt: December 08, 2023 End: December 08, 2023 Jasper Almonte MD Attending Provider Active St art: December 08, 2023 End: December 08, 2023 Team Status: Active Member Role Status Lin Mckeon MD Primary Care Provider Active Sta rt: February 27, 2024 Mau Blackman DO Attending Provider Active S tart: February 27, 2024 Team Status: Inactive Member Role Status Lin Mckeon MD Primary Care Provider Active Sta rt: February 27, 2024 End: February 27, 2024 Mau Blackman DO Attending Provider Active S tart: February 27, 2024 End: February 27, 2024 Team Status: Inactive Member Role Status Lin Mckeon MD Primary Care Provider Active Sta rt: March 24, 2024 End: March 24, 2024 Mau Blackman DO Attending Provider Active S tart: March 24, 2024 End: March 24, 2024 Team Status: Active Member Role Status Lin Mckeon MD Primary Care Provider Active Sta rt: April 19, 2024 Robert Ledezma II, DO Attending Provider Active Start: April 19, 2024 Team Status: Inactive Member Role Status Lin Mckeon MD Primary Care Provider Active Sta rt: April 23, 2024 End: April 23, 2024 Mau Blackman DO Active Start: April 23, 2024 End: April 23, 2024 KADEN Amato Attending Provider Active Start: April 23, 2024 End: April 23, 2024 Team Status: Inactive Member Role Status Lin Mckeon MD Primary Care Provider Active Sta rt: April 23, 2024 End: April 23, 2024 Radha Blancas APRN Attending Provider Active Start: April End: April 23, 2024 Team Status: Inactive Member Role Status Dates Radha Mckeon MD Primary Care Provider Active Sta rt: April 26, 2024 End: April 26, 2024 Santana Williamson MD Attending Provider Active St art: April 26, 2024 End: April 26, 2024 Print Graphic Designer Relationship Specialty Start Date End Date Radha Mckeon MD [address] [place] [address] PCP - General Family Medicine 12/27/22 Radha Mckeon MD [address] [place] [address] PCP - ACO Reach 10/03/23 Pippa Archer NP [address] [place] [address] Nurse Practitioner Family Medicine 12/27/22 Ghislaine Lawson RN [address] [place] [address] Registered Nurse Family Medicine 12/09/23 Print Graphic Designer Relationship Specialty Start Date End Date Radha Mckeon MD [address] [place] [address] PCP - General Family Medicine 12/27/22 Radha Mckeon MD [address] [place] [address] PCP - ACO Reach 10/03/23 Pippa Archer NP [address] [place] [address] Nurse Practitioner Family Medicine 12/27/22 Ghislaine Lawson RN [address] [place] [address] Registered Nurse Family Medicine 12/09/23 Team Status: Inactive Member Role Status Dates Radha Mckeon MD Primary Care Provider Active Sta rt: May 11, 2024 End: May 11, 2024 Helena Liao NP-C Attending Provider Active Start: May 11, 2024 End: May 11, 2024 Team Status: Inactive Member Role Status Dates Radha Mckeon MD Primary Care Provider Active Sta rt: May 17, 2024 End: May 17, 2024 Mau Blackman DO Attending Provider Active S tart: May 17, 2024 End: May 17, 2024 Print Graphic Designer Relationship Specialty Start Date End Date Radha Mckeon MD [address] [place] [address] PCP - General Family Medicine 12/27/22 Radha Mckeon MD [address] [facility] [place] [address] PCP - ACO Reach 10/03/23 Pippa Archer NP [address] [facility] [place] [address] Nurse Practitioner Family Medicine 12/27/22 Ghislaine Lawson, RN [address] [place] [address] Registered Nurse Family Medicine 12/09/23 Print Graphic Designer Relationship Specialty Start Date End Date Radha Mckeon MD [address] [facility] [place] [address] PCP - General Family Medicine 12/27/22 Radha Mckeon MD [address] [facility] [place] [address] PCP - ACO Reach 10/03/23 Pippa Archer NP [address] [place] [address] Nurse Practitioner Family Medicine 12/27/22 Ghislaine Lawson RN [address] [place] [address] Registered Nurse Family Medicine 12/09/23 Print Graphic Designer Relationship Specialty Start Date End Date Radha Mckeon MD [address] [place] [address] PCP - General Family Medicine 12/27/22 Radha Mckeon MD [address] [place] [address] PCP - ACO Reach 10/03/23 Pippa Archer, CREDIT PROFESSIONAL [address] [place] [address] Nurse Practitioner Family Medicine 12/27/22 Ghislaine Lawson RN [address] [place] [address] Registered Nurse Family Medicine 12/09/23 Print Graphic Designer Relationship Specialty Start Date End Date Radha Mckeon MD [address] [place] [address] PCP - General Family Medicine 12/27/22 Radha Mckeon MD [address] [place] [address] PCP - ACO Reach 10/03/23 Pippa Archer, RADHA [address] [place] [address] Nurse Practitioner Family Medicine 12/27/22 Ghislaine Lawson RN [address] [place] [address] Registered Nurse Family Medicine 12/09/23 Print Graphic Designer Relationship Specialty Start Date End Date Radha cMkeon MD [address] [facility] [address] PCP - General Family Medicine 12/27/22 Radha Mckeon MD [address] [facility] [place] [address] PCP - ACO Reach 10/03/23 Pippa Archer NP [address] [facility] [address] Nurse Practitioner Family Medicine 12/27/22 Ghislaine Lawson, NIKOS [address] [place] [address] Registered Nurse Family Medicine 12/09/23 Print Graphic Designer Relationship Specialty Start Date End Date Radha Mckeon MD [address] [place] [address] PCP - General Family Medicine 02/12/24 Print Graphic Designer Relationship Specialty Start Date End Date Radha Mckeon MD PCP - General Family Medicine 12/24/22 Team Status: Inactive Member Role Status Dates Radha Mckeon MD Primary Care Provider Active Sta rt: August 03, 2024 End: August 03, 2024 Mireya Dawson APRN Attending Provider Active S tart: August 03, 2024 End: August 03, 2024 Team Status: Inactive Member Role Status Dates Radha Mckeon MD Primary Care Provider Active Sta rt: August 30, 2024 End: August 30, 2024 Mau Blackman DO Attending Provider Active S tart: August 30, 2024 End: August 30, 2024 Print Graphic Designer Relationship Specialty Start Date End Date Radha Mckeon MD [address] [place] [address] PCP - General Family Medicine 12/27/22 Radha Mckeon MD [address] [place] [address] PCP - ACO Reach 10/03/23 Radha Mckeon MD [address] [place] [address] PCP - Devoted 08/04/24 Pippa Archer CREDIT PROFESSIONAL [address] [place] [address] Nurse Practitioner Family Medicine 12/27/22 Ghislaine Lawson, RN [address] [place] [address] Registered Nurse Family Medicine 12/09/23 Print Graphic Designer Relationship Specialty Start Date End Date Radha Mckeon MD [address] [place] [address] PCP - General Family Medicine 12/27/22 Radha Mckeon MD [address] [place] [address] PCP - ACO Reach 10/03/23 Radha Mckeon MD [address] [place] [address] PCP - Devoted 08/04/24 Pippa Archer CREDIT PROFESSIONAL [address] [place] [address] Nurse Practitioner Family Medicine 12/27/22 Ghislaine Lawson, RN [address] [place] [address] Registered Nurse Family Medicine 12/09/23 Print Graphic Designer Relationship Specialty Start Date End Date Radha Mckeon MD [address] [place] [address] PCP - General Family Medicine 12/27/22 Radha Mckeon MD [address] [place] [address] PCP - ACO Reach 10/03/23 Radha Mckeon MD [address] [place] [address] PCP - Devoted 08/04/24 Pippa Archer NP [address] [facility] [place] [address] Nurse Practitioner Family Medicine 12/27/22 Ghislaine Lawson, NIKOS [address] [facility] [place] [address] Registered Nurse Family Medicine 12/09/23 Print Graphic Designer Relationship Specialty Start Date End Date Radha Mckeon MD [address] [place] [address] PCP - General Family Medicine 02/12/24 Print Graphic Designer Relationship Specialty Start Date End Date Radha Mckeon MD [address] [facility] [place] [address] PCP - General Family Medicine 12/27/22 Radha Mckeon MD [address] [place] [address] PCP - ACO Reach 10/03/23 09/09/24 Radha Mckeon MD [address] [place] [address] PCP - Devoted 08/04/24 Pippa Archer NP [address] [place] [address] Nurse Practitioner Family Medicine 12/27/22 Ghislaine Lawson, RN [address] [place] [address] Registered Nurse Family Medicine 12/09/23 Print Graphic Designer Relationship Specialty Start Date End Date Radha Mckeon MD [address] [place] [address] PCP - General Family Medicine 12/27/22 Radha Mckeon MD [address] [place] [address] PCP - Devoted 08/04/24 Radha Mckeon MD [address] [place] [address] PCP - ACO Reach 09/17/24 Pippa Archer NP [address] [place] [address] Nurse Practitioner Family Medicine 12/27/22 Ghislaine Lawson, RN [address] [place] [address] Registered Nurse Family Medicine 12/09/23 Print Graphic Designer Relationship Specialty Start Date End Date Radha Mckeon MD [address] [place] [address] PCP - General Family Medicine 12/27/22 Radha Mckeon MD [address] [place] [address] PCP - Devoted 08/04/24 Radha Mckeon MD [address] [place] [address] PCP - ACO Reach 09/17/24 Pippa Archer CREDIT PROFESSIONAL [address] [place] [address] Nurse Practitioner Family Medicine 12/27/22 Ghislaine Lawson RN [address] [place] [address] Registered Nurse Family Medicine 12/09/23 Team Status: Inactive Member Role Status Dates Radha Mckeon MD Primary Care Provider Active Sta rt: September 27, 2024 End: September 27, 2024 Santana Williamson MD Attending Provider Active St art: September 27, 2024 End: September 27, 2024 Print Graphic Designer Relationship Specialty Start Date End Date Radha Mckeon MD [address] [place] [address] PCP - General Family Medicine 12/27/22 Radha Mckeon MD [address] [place] [address] PCP - Devoted 08/04/24 Radha Mckeon MD [address] [place] [address] PCP - ACO Reach 09/17/24 Pippa Archer, CREDIT PROFESSIONAL [address] [place] [address] Nurse Practitioner Family Medicine 12/27/22 Ghislaine Lawson RN [address] [place] [address] Registered Nurse Family Medicine 12/09/23 Print Graphic Designer Relationship Specialty Start Date End Date Radha Mckeon MD [address] [facility] [place] [address] PCP - General Family Medicine 12/27/22 Radha Mckeon MD [address] [facility] [place] [address] PCP - Devoted 08/04/24 Radha Mckeon MD [address] [facility] [place] [address] PCP - ACO Reach 09/17/24 Pippa Archer NP [facility] [facility] [place] [address] Nurse Practitioner Family Medicine 12/27/22 [place] [address] [place] [address] [place] [address] Registered Nurse Family Medicine 12/09/23 FOR RECORDS PERTAINING TO PATIENTS WHO ARE OR HAVE BEEN ENROLLED IN A CHEMICAL DEPENDENCY/SUBSTANCEABUSE PROGRAM, SOME INFORMATION MAY BE OMITTED. This clinical summary was aggregated from multiple sources. Caution should be exercised in using it in the provision of clinical care. This summary normalizes information from multiple sources, and as a consequence, information in this document may materially change the coding, format and clinical context of patient data. In addition, data may be omitted in some cases. CLINICAL DECISIONS SHOULD BE BASED ON THE PRIMARY CLINICAL RECORDS. [facility] [employer] [facility]. provides no warranty or guarantee of the accuracy or completeness of information in this document.
[2024-10-02 11:11] LABS: Creatinine 24 Hour Urine 860.34 mg/24 hr (800.00-1800.00); Creatinine Urine Random 48.47 mg/dL (20.00-300.00); Total Volume 24 Hour Urine 1775 mL/24hr
== END 2024-10-02 09:13 | disposition home or self-care (01) ==
LOC: LAB 09:12
PROVIDERS: PCP Family Medicine; Visit Provider Internal Medicine
DX: N20.0 Calculus of kidney (principal); E21.2 Other hyperparathyroidism
CPT/HCPCS: 82570

== ENCOUNTER 2025-02-10 13:37 | Outpatient (OUT) | payer OTHER, SELFPAY ==
--- OUTSIDE RECORDS SUMMARY | 2019-10-20 09:00 | XMS_ITS | Continuity of Care Document ---
Author Organization [employer] [facility] Address [address] [place] [address] Phone Care Team Providers Care Lab Systems Analyst Name Role Phone Bijan Figueroa MD Unavailable Unavailable Procedures Procedure Date OFFICE/OUTPATIENT VISIT, [facility] Advance Directives Directive Yes / No Effective Date File Name No Information Encounters Encounter Description Practice Location Reason(s) For Visit Diagnoses Date Provider Providers Copied on Encounter OFFICE/OUTPATI ENT VISIT, [employer] [facility], [address], [place], [place], [id number], [place] tel:[phone] [facility] No Information Henry Thakkar. [address], [place], [id number], [place]. tel:[phone] Referring Provider: Bijan Worthington, [address], [place], [address]. tel:[phone] Family History Family Member Type Diagnosis Age At Onset No Information Payers Payer name Insurance type Covered constitution party ID Authoriza tion(s) Medicare MB [id number] [employer] [place] Medicare Supplemental [id number] 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 Type Description Quantity Date Captured Comments Sex Female Smoking Status No Information Chief Complaint And Reason For Visit No Information Reason For Referral Reason For Referral No Information History Of Present Illness Encounter Date Complaint History Of Prese nt Illness No Information Functional Status Date Functional Assessmen t No Information Instructions Date Instruction Additional Infor mation No Information Assessments Type Assessment Date No Information Patient Care Teams Name Effective Dates (start - stop) Status Members No Information
--- OUTSIDE RECORDS SUMMARY | 2025-02-10 13:43 | XMS_ITS | Encounter Summary ---
Author Organization [facility] Address [address] [place] [address] Care Team Providers Care Denture Laboratory Technician Name Role Phone Annika Maria MD Primary Care Provider [phone] Pippa Rouse NP Unavailable [phone] Annika Maria MD Unavailable Ghislaine Lawson RN Unavailable [phone] Annika Maria MD Unavailable Annika Maria MD Unavailable Encounter Details Date Type Department Care Team (Late st Contact Info) Description 01/01/2024 Clinisync Result Encounter [facility] External Department Unsolicited Provider, Generic External Data 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 Tobacco Use Types Packs/Day Years Used Date Smoking Tobacco: Never Smokeless Tobacco: Never Alcohol Use Standard Drinks/Week Comments Yes 6 (1 standard drink = 0.6 oz pure alcohol) Caffeine intake: 3-4 cups per day coffee, soda/pop Humiliation, Afraid, Rape, and Kick questionnair e Answer Date Recorded Within the last year, have y ou been afraid of your partner or ex-partner? No 07/15/2023 Within the last year, have y ou been humiliated or emotionally abused in other ways by your partner or ex-partner? No Within the last year, have y ou been kicked, hit, slapped, or otherwise physically hurt by your partner or ex-partner? No 07/15/2023 Within the last year, have y ou been raped or forced to have any kind of sexual activity by your partner or ex-partner? No 07/15/2023 Social Connection and Isolat ion Panel [NHANES] Answer Date Recorded In a typical week, how many times do you talk on the phone with family, friends, or neighbors? Twice a week 07/15/2023 How often do you get togethe r with friends or relatives? Twice a week 07/15/2023 How often do you attend chur ch or christian services? More than 4 times per year 07/15/2023 Do you belong to any clubs o r organizations such as lutheran groups, unions, fraternal or athletic groups, or school groups? Yes 07/15/2023 How often do you attend meet ings of the clubs or organizations you belong to? More than 4 times per year 07/15/2023 Are you , , di vorced, , never , or living with a partner? 07/15/2023 AUDIT-C Answer Date Recorded Q1: How often do you have a drink containing alc ohol? Monthly or less 11/04/2023 Q2: How many drinks containi ng alcohol do you have on a typical day when you are drinking? 3 or 4 11/04/2023 Q3: How often do you have si x or more drinks on one occasion? Less than monthly 11/04/2023 Overall Financial Resource Strain (CARDIA) Answe r Date Recorded How hard is it for you to pa y for the very basics like food, housing, medical care, and heating? Not very hard 07/15/2023 PHQ-2 Answer Date Recorded Patient Health Questionnaire-2 Score 4 09/09/2023 [facility] - Occupational Stress Questionnaire Answer Date Recorded Do you feel stress - tense, restless, nervous, or anxious, or unable to sleep at night because your mind is troubled all the time - these days? Very much 07/15/2023 Exercise Vital Sign Answer Date Recorde d On average, how many days pe r week do you engage in moderate to strenuous exercise (like a brisk walk)? 1 day 07/15/2023 On average, how many minutes do you engage in exercise at this level? 60 min 07/15/2023 Hunger Vital Sign Answer Date Recorded Within the past 12 months, y ou worried that your food would run out before you got the money to buy more. Never true 07/15/20 23 Within the past 12 months, t he food you bought just didn't last and you didn't have money to get more. Never true 07/15/2023 PRAPARE - Transportation Answer Date Re corded In the past 12 months, has l ack of transportation kept you from medical appointments or from getting medications? No 07/04 In the past 12 months, has l ack of transportation kept you from meetings, work, or from getting things needed for daily living? No 07/15/2023 Housing Stability Vital Sign Answer Clay e Recorded In the last 12 months, was t here a time when you were not able to pay the mortgage or rent on time? No 07/15/2023 In the last 12 months, how many places have you lived? 1 07/15/2023 In the last 12 months, was t here a time when you did not have a steady place to sleep or slept in a senior care (including now)? No 07/15/2023 Comments No Sex and Gender Information Value Date Recorded Sex Assigned at Not on file Legal Sex Female 7:17 PM EDT Gender Identity Female 10/16/2022 7:17 PM EDT Sexual Orientation Asexual 06/29/2023 11 :24 PM EST Occupation Industry Job Start Date Job End Date retired Not on file Not on file Not on file documented as of this encounter Plan of Treatment Upcoming Encounters Date Type Department Care Team (Late st Contact Info) Description 02/21/2025 10:00 AM EDT Social Work [facility] [address] [place] [address] Sadaf Gutierrez LISW-S [address] [place], [place] [id number] 02/22/2025 10:50 AM EDT Office Visit [facility] [address] [place] [id number] Tyrese Swanson MD [address] [place] [address] 03/28/2025 12:20 PM EDT Office Visit [facility] [address] [place] [id number] Annika Maria MD [address] [place], [place] [id number] documented as of this encounter Procedures Procedure Name Priority Date/Time Associated Diagnosis Comments XR IVP 01/01/2024 10:09 AM EDT documented in this encounter Results * XR IVP (01/01/2024 10:09 AM EDT) Anatomical Region Laterality Modality Radiographic Delphine ging 01/01/2024 10:0 9 AM EDT Narrative 01/01/2024 10:11 AM EDT [address] [address] XRay Report Signed Patient: TRENT ANDERS MR#: [id number] : 1950 Acct:[id number] Age/Sex: 73 / F ADM Date: 01/01/24 Loc: [place] Attending Dr: Jasper Almonte M.D. Ordering Physician: Jasper Almonte M.D. Date of Service: 01/01/24 Procedure(s): XR IVP w KUB Accession Number(s): [id number] cc: ANNIKA MARIA ; Jasper Almonte M.D. The [address] [address] Patient Name: TRENT ANDERS MRN: [id number] date: 1950 Sex: F Assigned Patient Location: [place] Current Patient Location: [place] Accession/Order Number: [id number] Exam Date: 01/01/2024 08:49 Report Date: 01/01/2024 10:09 At the request of: JASPER ALMONTE Procedure: XR IVP w KUB EXAMINATION: XR IVP w KUB HISTORY: Kidney Stone N20.0 COMPARISON: No relevant comparison available. TECHNIQUE: After obtaining patient consent a mat weaver image was obtained followed by injection of 100cc of Omnipaque 300 IV contrast. Immediate nephrographic images were obtained. Corticomedullary and urographic phase images were obtained at 5, 10, 15 and 20 minutes. 15 minute oblique images were also obtained. FINDINGS: KIDNEY/URETER - RIGHT: No visible calcifications. KIDNEY/URETER - LEFT: No visible calcifications. PELVIS: No visible ureteral calcifications. Any visible calcifications favor phleboliths. NEPHROGRAPHIC PHASE: Normal, symmetric size, contour, and orientation. Normal and symmetric time of contrast uptake. CORTICOMEDULLARY: No mass or abnormal appearing medulla, pyramids, or collecting system. UROGRAPHIC PHASE: Normal caliber, course, and number of ureters. BLADDER: Normal size and contour. BOWEL: No abnormal dilation or deviation. BONES: No acute abnormality. OTHER: IVC filter. Degenerative changes of the spine. No abnormal gaseous collections. XR/XR IVP w KUB IMPRESSION: Normal IVP with no hydronephrosis, abnormal calcification or filling defect Electronically authenticated by: ERIC BECKER Date: 01/01/2024 10:09 Dictated By: Eric Becker M.D. Signed By: 01/01/24 1011 DD/ 1009 TD/TT: Motor And Chassis Inspector: Procedure Note Radiology, Radiologist, MD - 01/01/2024 [place] [address] XRay Report Signed Patient: TRENT ANDERSMR#: [id number] : 1950cct:[id number] Age/Sex: 73 / FADM Date: 01/01/24 Loc: [place] Attending Dr: Jasper Almonte M.D. Ordering Physician: Jasper Almonte M.D. Date of Service: 01/01/24 Procedure(s): XR IVP w KUB Accession Number(s): [id number] cc: ANNIKA MARIA ; Jasper Almonte M.D. The [address] [address] Patient Name: TRENT ANDERS MRN: [id number] date: 1950 Sex: F Assigned Patient Location: IN Current Patient Location: IN Accession/Order Number: [id number] Exam Date: 01/01/2024 08:49 Report Date: 01/01/2024 10:09 At the request of: JASPER ALMONTE Procedure: XR IVP w KUB EXAMINATION: XR IVP w KUB HISTORY: Kidney Stone N20.0 COMPARISON: No relevant comparison available. TECHNIQUE: After obtaining patient consent a mat weaver image was obtainedfollowed by injection of 100cc of Omnipaque 300 IV contrast. Immediatenephrographic images were obtained. Corticomedullary and urographic phase images were obtained at 5, 10, 15 and 20 minutes. 15 minute oblique images were also obtained. FINDINGS: KIDNEY/URETER - RIGHT: No visible calcifications. KIDNEY/URETER - LEFT: No visible calcifications. PELVIS: No visible ureteral calcifications. Any visible calcificationsfavor phleboliths. NEPHROGRAPHIC PHASE: Normal, symmetric size, contour, and orientation. Normal and symmetric time of contrast uptake. CORTICOMEDULLARY: No mass or abnormal appearing medulla, pyramids, or collecting system. UROGRAPHIC PHASE: Normal caliber, course, and number of ureters. BLADDER: Normal size and contour. BOWEL: No abnormal dilation or deviation. BONES: No acute abnormality. OTHER: IVC filter. Degenerative changes of the spine. No abnormal gaseous collections. XR/XR IVP w KUB IMPRESSION: Normal IVP with no hydronephrosis, abnormal calcification or fillingdefect Electronically authenticated by: ERIC BECKER Date: 01/01/2024 10:09 Dictated By: Eric Becker M.D. Signed By:01/01/24 1011 DD/ 1009 TD/TT: Motor And Chassis Inspector: Generic External Data Provider IMG XR PROCEDURES Final Result documented in this encounter Visit Diagnoses Not on filedocumented in this encounter Additional Health Concerns Assessment Noted Time PHQ-9 Depression Total Score: 8 09/09/19 24 2:00 PM EST documented as of this encounter Care Teams Denture Laboratory Technician Relationship Specialty Start Date End Date Annika Maria MD [address] [place] [address] PCP - General Family Medicine 12/27/22 Annika Maria MD [address] [facility] [place] [address] PCP - ACO Reach 10/03/23 09/09/24 Annika Maria MD [address] [place], [place] [phone] PCP - Devoted 08/04/24 Annika Maria MD [address] [facility] [place] [address] PCP - ACO Reach 09/17/24 11/04/24 Pippa Rouse NP [address] [facility] [place] [address] Nurse Practitioner Family Medicine 12/27/22 Ghislaine Lawson, RN [address] [place] [address] Registered Nurse Family Medicine 12/09/23 documented as of this encounter
--- OUTSIDE RECORDS SUMMARY | 2025-02-10 13:43 | XMS_ITS | Encounter Summary ---
Author Organization [facility] Address [address] [place] [address] Phone Care Team Providers Care Drywall Boardhanger Name Role Phone Annika Mckeon MD Primary Care Provider [phone] Encounter Details Date Type Department Care Team (Late st Contact Info) Description 04/26/2024 Scanned Document [facility] [address] [place] [address] Scanning, Generic Provider 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 Tobacco Use Types Packs/Day Years Used Date Smoking Tobacco: Never Smokeless Tobacco: Never Alcohol Use Standard Drinks/Week Comments Yes 0 (1 standard drink = 0.6 oz pur e alcohol) Comments Unknown Sex and Gender Information Value Date Recorded Sex Assigned at Not on file Legal Sex Female 12:15 AM EST Gender Identity Not on file Sexual Orientation Not on file documented as of this encounter Plan of Treatment Upcoming Encounters Date Type Department Care Team (Late st Contact Info) Description 05/31/2025 1:40 PM EDT Office Visit [facility] [address] [facility] [address] [place] [address] Ran Rodriguez MD [address] [facility] [address] [place] [address] documented as of this encounter Visit Diagnoses Not on filedocumented in this encounter Additional Health Concerns Assessment Noted Time A fall risk assessment has been complete d for the patient 02/12/2024 2:26 PM EDT documented as of this encounter Care Teams Drywall Boardhanger Relationship Specialty Start Date End Date Annika Mckeon MD [address] [place] [address] PCP - General Family Medicine 02/12/24 documented as of this encounter
--- OUTSIDE RECORDS SUMMARY | 2025-02-10 13:43 | XMS_ITS | Encounter Summary ---
Author Organization [facility] Address [address] [place] [address] Care Team Providers Care Rn Team Leader Name Role Phone Annika Mckeon MD Primary Care Provider [phone] Pippa Rouse SENIOR CLINICAL SAS PROGRAMMER Unavailable [phone] Annika Mckeon MD Unavailable Ghislaine Lawson RN Unavailable [phone] Annika Mckeon MD Unavailable Annika Mckeon MD Unavailable Encounter Details Date Type Department Care Team (Late st Contact Info) Description 06/13/2023 Abstract [facility] [address] [place] [address] Annika Mckeon MD [address] [place] [address] 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 Tobacco Use Types Packs/Day Years Used Date Smoking Tobacco: Never Smokeless Tobacco: Never Alcohol Use Standard Drinks/Week Comments Yes 3 (1 standard drink = 0.6 oz pure alcohol) 1-2 drinks 2-4x a month in the past year, Caffeine intake: 3-4 cups per day coffee, soda/pop AUDIT-C Answer Date Recorded Q1: How often do you have a drink containing alc ohol? 2-4 times a month 05/29/2023 Q2: How many drinks containi ng alcohol do you have on a typical day when you are drinking? 1 or 2 05/29/2023 Q3: How often do you have si x or more drinks on one occasion? Never 05/29/2023 PHQ-2 Answer Date Recorded Patient Health Questionnaire-2 Score 0 12/27/2022 Comments Unknown Sex and Gender Information Value Date Recorded Sex Assigned at Not on file Legal Sex Female 7:17 PM EDT Gender Identity Female 10/16/2022 7:17 PM EDT Sexual Orientation Asexual 06/29/2023 11 :24 PM EST COVID-19 Exposure Response Date Recorded In the last 10 days, have yo u been in contact with someone who was confirmed or suspected to have Coronavirus/COVID-19? No / Unsure 05/29/2023 1:55 PM EDT documented as of this encounter Plan of Treatment Upcoming Encounters Date Type Department Care Team (Late st Contact Info) Description 02/21/2025 10:00 AM EDT Social Work [facility] [address] [place] [address] Sadaf Gutierrez [facility] [address] [place] [address] 02/22/2025 10:50 AM EDT Office Visit [facility] [address] [place] [address] Tyrese Swanson MD [address] [place] [address] 03/28/2025 12:20 PM EDT Office Visit [facility] [address] [place] [address] Annika Mckeon MD [address] [place] [address] documented as of this encounter Visit Diagnoses Not on filedocumented in this encounter Care Teams Rn Team Leader Relationship Specialty Start Date End Date Annika Mckeon MD [facility] [place] [address] PCP - General Family Medicine 12/27/22 Annika Mckeon MD [address] [place] [address] [place] [address] PCP - ACO Reach 10/03/23 09/09/24 Annika Mckeon MD [address] [facility] [place] [address] PCP - Devoted 08/04/24 Annika Mckeon MD [address] [facility] [place] [address] PCP - ACO Reach 09/17/24 11/04/24 Pippa Rouse NP [address] [facility] [place] [address] Nurse Practitioner Family Medicine 12/27/22 Ghislaine Lawson, NIKOS [address] [place] [address] Registered Nurse Family Medicine 12/09/23 documented as of this encounter
--- OUTSIDE RECORDS SUMMARY | 2025-02-10 13:43 | XMS_ITS | Encounter Summary ---
Author Organization [facility] Address [address] [place] [address] Care Team Providers Care Plastic Surgery Specialist Name Role Phone Annika Mckeon MD Primary Care Provider [phone] Pippa Rouse TRUCKLOAD OWNER OPERATOR Unavailable [phone] Annika Mckeon MD Unavailable Ghislaine Lawson RN Unavailable [phone] Annika Mckeon MD Unavailable Annika Mckeon MD Unavailable Encounter Details Date Type Department Care Team (Late st Contact Info) Description 03/24/2024 Orders Only [facility] [address] [place] [id number] Annika Mckeon MD [address] [place], [place] [id number] History of deep venous thrombosis (DVT) of distal vein of right lower extremity (Primary Dx); Factor 5 Leiden mutation, heterozygous ([facility]) 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 Tobacco Use Types Packs/Day Years [...] 07/15/2023 How often do you attend chur or mormonism services? More than 4 times per year 07/15/2023 Do you belong to any clubs o r organizations such as scientology groups, unions, fraternal or athletic groups, or [...] Recorded Patient Health Questionnaire-2 Score 4 09/09/2023 [facility] [facility] Occupat ional [facility] - Occupational Stress [...] place to sleep or slept in a mcfp (including now)? No 07/15/2023 Comments No Sex [...] 10:00 AM EDT Social Work [facility] [address] [place] [address] Sadaf Gutierrez [facility]W-[facility] [address] [place] [address] 02/22/2025 10:50 AM EDT Office Visit [facility] [address] [place] [address] Tyrese Swanson MD [address] [place] [address] 03/28/2025 12:20 PM EDT Office Visit [facility] [address] [place] [address] Annika Mckeon MD [address] [place] [address] documented as of this encounter Visit Diagnoses Diagnosis History of deep venous thrombosis (DVT) of distal vein of right lower extremity- Primary Factor 5 Leiden mutation, heterozygous ([facility]) documented in this encounter Additional Health Concerns Assessment Noted Time PHQ-9 Depression Total Score: 8 09/09/19 24 2:00 PM EST documented as of this encounter Care Teams Plastic Surgery Specialist Relationship Specialty Start Date End Date Annika Mckeon MD [address] [place] [address] PCP - General Family Medicine 12/27/22 Annika Mckeon MD [address] [place] [address] PCP - ACO Reach 10/03/23 09/09/24 Annika Mckeon MD [address] [place] [address] PCP - Devoted 08/04/24 Annika Mckeon MD [address] [place] [address] PCP - ACO Reach 09/17/24 11/04/24 Pippa Rouse NP [address] [place] [address] Nurse Practitioner Family Medicine 12/27/22 Ghislaine Lawson, RN [address] [place] [address] Registered Nurse Family Medicine 12/09/23 documented as of this encounter
--- OUTSIDE RECORDS SUMMARY | 2025-02-10 13:43 | XMS_ITS | Encounter Summary ---
Author Organization [facility] Address [address] [place] [address] Care Team Providers Care Body Shop Technician Name Role Phone Annika Mckeon MD Primary Care Provider [phone] Pippa Rouse PROJECT DIRECTOR Unavailable [phone] Annika Mckeon MD Unavailable Ghislaine Lawson RN Unavailable [phone] Annika Mckeon MD Unavailable Annika Mckeon MD Unavailable Encounter Details Date Type Department Care Team (Late st Contact Info) Description 06/11/2023 Abstract [facility] [address] [place] [address] Annika Mckeon MD [address] [place] [address] 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 Tobacco Use Types [...] AM EDT Social Work [facility] [address] [place] [address] Sadaf Gutierrez LISW-S [address] [place] [address] 02/22/2025 10:50 AM EDT Office Visit [facility] [address] [place] [address] Tyrese Swanson MD [address] [place] [address] 03/28/2025 12:20 PM EDT Office Visit [facility] [address] [place] [address] Annika Mckeon MD [address] [place] [address] documented as of this encounter Visit Diagnoses Not on filedocumented in this encounter Care Teams Body Shop Technician Relationship Specialty Start Date End Date Annika Mckeon MD [facility] [place] [address] PCP - General Family Medicine 12/27/22 Annika Mckeon MD [address] [place] [address] [place] [address] PCP - ACO Reach 10/03/23 09/09/24 Annika Mckeon MD [address] [facility] [place] [address] PCP - Devoted 08/04/24 Annika Mckeon MD [address] [facility] [place] [address] PCP - ACO Reach 09/17/24 11/04/24 Pippa Rouse NP [address] [facility] [place] [address] Nurse Practitioner Family Medicine 12/27/22 Ghislaine Lawson, NIKOS [address] [place] [address] Registered Nurse Family Medicine 12/09/23 documented as of this encounter
--- OUTSIDE RECORDS SUMMARY | 2025-02-10 13:43 | XMS_ITS | Encounter Summary ---
Author Organization [facility] Address [address] [place] [address] Phone Care Team Providers Care Actuarial Internship Name Role Phone Annika Mckeon MD Primary Care Provider [phone] Encounter Details Date Type Department Care Team (Late st Contact Info) Description 12/02/2023 Scanned Document [facility] [address] [place] [id number] Scanning, Generic Provider 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 Tobacco Use Types Packs/Day Years Used Date Smoking Tobacco: Never Assessed Comments Unknown Sex and Gender Information Value Date Recorded Sex Assigned at Not on file Legal Sex Female 12:15 AM EST Gender Identity Not on file Sexual Orientation Not on file documented as of this encounter Plan of Treatment Upcoming Encounters Date Type Department Care Team (Late st Contact Info) Description 05/31/2025 1:40 PM EDT Office Visit [facility] [address] [facility] [address] [place] [address] Ran Rodriguez MD [address] [facility] [address] [place] [address] documented as of this encounter Visit Diagnoses Not on filedocumented in this encounter Care Teams Actuarial Internship Relationship Specialty Start Date End Date Annika Mckeon MD [address] [place], [place] [address] PCP - General Family Medicine 02/12/24 documented as of this encounter
--- OUTSIDE RECORDS SUMMARY | 2025-02-10 13:43 | XMS_ITS | Encounter Summary ---
Author Organization [facility] Address [address] [place] [address] Phone Care Team Providers Care Gerontological Nurse Practitioner Name Role Phone Annika Mckeon MD Primary Care Provider [phone] Encounter Details Date Type Department Care Team (Late st Contact Info) Description 11/28/2023 Scanned Document [facility] [address] [place] [id number] Scanning, Generic Provider 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 Tobacco Use [...] Description 05/31/2025 1:40 PM EDT Office Visit [facility] [address] [address] Ran Rodriguez MD [address] [facility] [address], [address] [place] [address] documented as of this encounter Procedures Procedure Name Priority Date/Time Associated Diagnosis Comments OUTSIDE IMAGING SCAN 11/28/2023 documented in this encounter Results * OUTSIDE IMAGING SCAN (11/28/2023) Anatomical Region Laterality Modality Other Narrative 11/28/2023 Ordered by an unspecified provider. us Generic Provider Scanning OUTSIDE SCAN Final Result documented in this encounter Visit Diagnoses Not on filedocumented in this encounter Care Teams Gerontological Nurse Practitioner Relationship Specialty Start Date End Date Annika Mckeon MD [address] [place] [address] PCP - General Family Medicine 02/12/24 documented as of this encounter
--- OUTSIDE RECORDS SUMMARY | 2025-02-10 13:43 | XMS_ITS | Clinical Summary ---
Author Organization [facility] Address [address] [place] [address] Care Team Providers Care Non Destructive Evaluation Technician Name Role Phone Annika Mckeon MD Primary Care Provider [phone] Pippa Rouse NP Unavailable [phone] Ghislaine Lawson RN Unavailable [phone] Annika Mckeon MD Unavailable Allergies Active Allergy Reactions Criticality Noted Date Comments Enoxaparin Itching,Rash Low 09/25/2023 Medications fluticasone (Flonase) 50 MCG/ACT nasal spray Administer 2 sprays into affected nostril(s) in the morning. Active hydroxychloroquine (Plaquenil) 200 MG tablet Take by mouth in the morning and at noon rheum Active nitroglycerin (Rectiv) 0.4 % (w/w) rectal ointment 09/16/19 24 Active silver sulfADIAZINE (Silvadene) 1 % creamIndications:Ac rubén vulvitis Apply topically Daily 25 g 11/04/19 24 Active acetaminophen (Tylenol) 325 MG tablet Take 650 mg by mouth every 6 (six) hours if needed 12/02/19 24 Active amoxicillin (Amoxil) 500 MG capsule 05/04/20 24 Active busPIRone (Buspar) 5 MG tabletIndications:M ajor depressive disorder, single episode, moderate (HCC) Take 1 tablet (5 mg) by mouth 3 (three) times a day as needed (anxiety) 30 tablet 05/10/20 24 025 Active warfarin (Coumadin) 2 MG tabletIndications:F actor 5 Leiden mutation, heterozygous ([facility]HS-HCC) TAKE 1 TABLET BY MOUTH EVERY DAY. TAKE 1 MG ON TUESDAYS 90 tablet 11 06/26/20 24 Active triamcinolone (Kenalog) 0.1 % creamIndications:At opic neurodermatitis APPLY TO AFFECTED AREA TWICE A DAY 60 g 1 08/18/19 25 Active albuterol (ProAir Digihaler) 90 mcg/act breath-activated inhaler (w/ sensor) 2 puffs every 4 (four) hours if needed for wheezing Active lisinopril 2.5 MG tablet Take 2.5 mg by mouth in the morning. 09/14/19 25 026 Active zoledronic acid (Zometa) 4 MG/5ML injection Infuse 4 mg into a venous catheter 1 (one) time Active buPROPion XL (Wellbutrin XL) 300 MG 24 hr tabletIndications:R ecurrent major depressive disorder, remission status unspecified TAKE 1 TABLET BY MOUTH EVERY DAY IN THE MORNING FOR 90 DAYS 90 tablet 4 11/25/19 25 Active clobetasol (Temovate) 0.05 % ointmentIndications :Acute vulvitis Apply thin film BID x 4 weeks then once daily x 4 weeks then every other day and ween slowly to use twice weekly 30 g 3 12/04/19 25 Active famotidine (Pepcid) 20 MG tabletIndications:G gary-esophageal reflux disease without esophagitis TAKE 1 TABLET BY MOUTH EVERY DAY AT BEDTIME NEEDED 90 tablet 4 12/11/19 25 Active cholecalciferol (Vitamin D-3) 50 MCG (1999 UT) tabletIndications:V itamin D deficiency Take 2,000 Units by mouth Daily Four times a week 16 tablet 1 12/18/19 25 Active ketoconazole (NIZOral) 2 % cream APPLY TO EARS AND EXTREMITIES DAILY FOR TWO WEEKS NEEDED RASH 12/03/19 25 Active PARoxetine (Paxil) 30 MG tabletIndications:P anic disorder TAKE 1 TABLET BY MOUTH EVERY DAY IN THE MORNING 90 tablet 1 01/09/20 25 Active Active Problems Problem Noted Date Diagnosed Date Aortic root dilatation 09/30/2024 Acute pain of right shoulder 05/08/2024 Primary osteoarthritis of both knees 05/08/2024 Shoulder impingement syndrome 05/08/2024 Strain of right biceps 05/08/2024 Strain of right deltoid muscle 05/08/2024 Iliopsoas bursitis of left hip 05/08/2024 Anticoagulated 02/12/2024 BMI 27.0-27.9,adult 02/12/2024 Nonrheumatic aortic valve stenosis 02/12/2024 Acute hypokalemia 01/15/2024 Arm pain, left 01/15/2024 Urolithiasis 01/15/2024 Chronic anticoagulation 10/06/2023 History of deep venous throm bosis (DVT) of distal vein of right lower extremity 10/06/2023 Macular pucker, left eye 10/06/2023 Mediastinal lymphadenopathy 10/06/2023 Hx of parotidectomy 09/29/2023 Moderate episode of recurrent major depressive d isorder 09/17/2023 Caputo's esophagus without dysplasia 06/12/2023 Acquired hallux valgus of right foot 12/27/2022 Age related osteoporosis 12/27/2022 Anxiety 12/27/2022 Autoimmune disease 12/27/2022 Chronic fatigue 12/27/2022 Chronic seasonal allergic rhinitis due to pollen 12/27/2022 Circumscribed scleroderma 12/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 Dietary zinc deficiency 12/27/2022 Factor 5 Leiden mutation, heterozygous ([facility]) 12/27/2022 Gastroesophageal reflux disease 12/27/2022 Impingement syndrome of right shoulder 3 Iron deficiency 12/27/2022 Lichen sclerosus 12/27/2022 Lymphopenia 12/27/2022 Major depressive disorder, single episode, moder ate 12/27/2022 Other hammer toe(s) (acquired), right foot 12/27 Panic disorder 12/27/2022 PMR (polymyalgia rheumatica) ([facility]-H[facility]) 3 Postoperative malabsorption 12/27/2022 Primary osteoarthritis of left hip 12/27/2022 Primary osteoarthritis of right shoulder 023 Secondary hyperparathyroidism 12/27/2022 Thoracic ascending aortic aneurysm 12/27/2022 Vaginal atrophy 12/27/2022 Vitamin D deficiency 12/27/2022 Iron deficiency anemia 01/13/2018 Adrenal insufficiency 04/17/2017 Arthralgia 02/26/2017 Pulmonary nodule 02/26/2017 Mild persistent asthma without complication 03/2017 Obstructive sleep apnea syndrome 10/09/2016 Resolved Problems Problem Noted Date Diagnosed Date Resolved Date Nuclear sclerosis of both eyes 10/06/2023 01/15/2024 Osteoporosis without current pathological fracture 12/27/2022 09/09/2023 Osteoporosis 12/27/2022 08/20/2023 Depression 12/27/2022 09/09/2023 Difficulty walking 12/27/2022 4 Chronic pain disorder 12/27/20222023 Other chronic pain 12/27/2022 4 Plantar wart 12/27/2022 08/20/2023 PMB (postmenopausal bleeding) 12/27/2022 08/20/2023 Polydipsia 12/27/2022 08/20/2023 Cough 02/26/2017 08/20/2023 Encounters Date Type Department Care Team Description 01/08/2025 Refill [facility] [address] [place] [address] Annika Mckeon MD Panic disorder 12/17/2024 Patient Outreach [facility] [address] [place] [address] Ghislaine Lawson RN 2024 Patient Outreach [facility] [address] [place] [address] Ghislaine Lawson RN 2024 Telephone [facility] [address] [place] [address] Tyrese Swanson MD Med Refill 12/14/2024 Results Follow-Up [facility] [address] [place] [address] Patricio Sarah MD 12/10/2024 Refill [facility] [address] [place] [address] Annika Mkceon MD Gastro-esophageal reflux disease without esophagitis 12/03/2024 Orders Only [facility] [address] [place] [address] Patricio Sarah MD Acute vulvitis (Primary Dx) 12/02/2024 Telephone [facility] [address] [place] [address] Patricio Sarah MD 11/24/[address] [facility] [address] [place] [phone] Annika Mckeon MD Recurrent major depressive disorder, remission status unspecified 11/22/2024 11:15 AM EDT Office Visit 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 11/22/2024 10:00 AM EDT Social Work [facility] [address] [place] [address] Sadaf Gutierrez, SOCKET WELDER HELPER-S Panic disorder ; Moderate episode of recurrent major depressive disorder (HCC) 11/22/2024 Bamboo flowsheet [facility] [address] [place] [address] Sadaf Gutierrez, SOCKET WELDER HELPER-S 11/22/2024 Travel 11/11/2024 10:45 AM EDT Office Visit [facility] [address] [place] [phone] Patricio Sarah MD Encounter for gynecological examination without abnormal finding (Primary Dx); Encounter for screening mammogram for malignant neoplasm of breast; Osteoporosis, post-menopausal ; Encounter for screening for cervical cancer; Alopecia 11/11/2024 Travel from Last 3 Months Immunizations Immunization Administration Dates Next Due Influenza, High Dose Seasona l, Preservative Free 05/10/2024,05/03/2019,05/20/2018 Influenza, High-dose Seasona l, Quadrivalent, Preservative Free 08/29/2022,05/08/2021 Influenza, Seasonal, Quadriv alent, Adjuvanted 04/20/2023,05/18/2020 Influenza, injectable, quadrivalent 05/08/2018 Influenza, seasonal, intrade rmal, preservative free 05/04/2018 Pneumococcal Conjugate PCV 13 06/01/2019 Pneumococcal Polysaccharide PPSV23 01/27/2018 Zoster, Recombinant 07/18/2019,05/03/2019 Family History Medical History Relation Name Comments Alzheimer's disease Father Cherrie Arthritis Father Cherrie Cancer Father Cherrie Hearing loss Father Cherrie Arthritis Mother Ana Cancer Mother Ana Heart disease Mother Ana Parkinson's Disease Mother Ana polio Mother Ana Bipolar disorder Son Alcohol abuse Neg Hx Drug abuse Neg Hx Relation Name Status Comments Brother 1 Father Cherrie Mother Ana Sister 1 Son 2 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 Tobacco Use Types Packs/Day Years Used Date Smoking Tobacco: Never Smokeless Tobacco: Never Tobacco Cessation:Counseling Given: Not Answered Alcohol Use Standard Drinks/Week Comments Yes 6 [...] often do you attend chur ch or latter day services? More than 4 times per year 07/15/2023 Do you belong to any clubs o r organizations such as tenriism groups, unions, fraternal or athletic groups, or [...] Date Recorded Patient Health Questionnaire-2 Score 0 09/30/2024 [facility] - Occupational [...] place to sleep or slept in a jail (including now)? No 07/15/2023 Comments No Sex and Gender Information Value Date Recorded Sex Assigned at Not on file Legal Sex Female 7:17 PM EDT Gender Identity Female 10/16/2022 7:17 PM EDT Sexual Orientation Asexual 06/29/2023 11 :24 PM EST Occupation Industry Job Start Date Job End Date retired Not on file Not on file Not on file Last Filed Vital Signs Vital Sign Reading Time Taken Comments Blood Pressure 120/70 11/11/2024 11:10 AM EDT Pulse 52 10/18/2024 11:42 AM EDT Temperature 34.1 C (93.4 F) 09/30/2024 3:03 PM EST Respiratory Rate 14 10/18/2024 11:42 AM EDT Oxygen Saturation 97% 10/18/2024 11:42 AM EDT Inhaled Oxygen Concentration - - Weight 69.4 kg (153 lb) 11/11/2024 11:10 AM EDT Height 162.6 cm (5' 4 ) 10/18/2024 11:42 AM EDT Body Mass Index 26.26 10/18/2024 11:42 AM EDT Plan of Treatment Upcoming Encounters Date Type Department Care Team (Late st Contact Info) Description 02/21/2025 10:00 AM EDT Social Work [facility] [address] [place] [address] Sadaf Gutierrez S, SOCKET WELDER HELPER-S [address] [place], [place] [id number] 02/22/2025 10:50 AM EDT Office Visit [facility] [address] [place] [address] Tyrese Swanson MD [address] [place] [address] 03/28/2025 12:20 PM EDT Office Visit [facility] [address] [place] [phone] Annika Mckeon MD [address] [place] [address] Health Maintenance Due Date Last Done Comments CT Colonography 1952 FIT-DNA 1952 FIT 1950 FOBT 1950 Sigmoidoscopy 1950 Influenza Vaccine (#1) 2025 , 04/05/2024, 04/20/2023, Additional history exists Medicare Annual Wellness (AWV) 09/30/2025 0 09/30/2024, 09/30/2024, 09/09/2023, Additional history exists Mammogram 12/10/2025 12/10/2024, 10/03, 10/24/2022, Additional history exists Colonoscopy 02/17/2028 02/16/2018 Colorectal Cancer Screening 02/17/2028 Pneumococcal Vaccine: 65+ Years Completed 9, 01/27/2018 Procedures Procedure Name Priority Date/Time Associated Diagnosis Comments BI MAMMOGRAM SCREENING TOMOSYNTHESIS BILATERAL Routine 12/10/2024 11:09 AM EDT Encounter for screening mammogram for malignant neoplasm of breast POCT PROTIME-INR, FINGERSTICK Routine 11/22/2024 11:14 AM EDT penitentiary (current) use of anticoagulants COLONOSCOPY Routine 02/16/2018 12:00 PM EDT from Last 3 Months or Most Recently Relevant to Health Maintenance Results * Bilateral screening mammogram with tomosynthesis (12/10/2024 11:09 AM EDT) Anatomical Region Laterality Modality Breast Bilateral Mammography 12/10/2024 11:0 9 AM EDT Impressions 12/10/2024 11:12 AM EDT NO MAMMOGRAPHIC EVIDENCE OF MALIGNANCY. ROUTINE FOLLOW-UP IS RECOMMENDED IN ONE YEAR. RESULT CODE: 1 Negative DENSITY CODE: 2 (approximately 25-50% glandular) There are scattered areas of fibroglandular density. FOLLOW UP: 1YR The false-negative rate of mammography is approximately 10-percent. Management of a palpable abnormality must be based on clinical grounds. Patient was entered into a reminder system with a target due date for the next mammogram. Impression dictated by: Hammad Thompson Jr., D.ODemi 12/10/2024 11:10 AM Dictation Location: [facility] Dictated By: Hammad Thompson Jr, DO 12/10/24 1109 Signed By: <Electronically signed by Hammad Thompson Jr, in OV> 12/10/24 1110 Narrative 12/10/2024 11:12 AM EDT [facility] [place] [address] Mammography Report Signed Patient: Rebecca Herrera MR#: [id number] : 1950 Acct:[id number] Age/Sex: 73 / F Adm Date: 12/10/24 Loc: [place] Room: Type: [facility] Attending Dr: Patricio Sarah MD Ordering Provider: MURIEL Ramírez Date of Service: 12/10/24 Procedure(s): MM screening mammo BI w/CAD Accession Number(s): ([id number]) MM/MM screening mammo BI w/CAD: screening Copies to: MD Patricio Lorenzo MD-[facility] CLINICAL DATA: Screening for malignancy. SCREENING MAMMOGRAM - FULL FIELD DIGITAL WITH TOMOSYNTHESIS AND CAD COMPARISON:Mammograms dating back to 2020 Tomosynthesis craniocaudal and mediolateral oblique views of both breasts were obtained using low- dose digital technique. This examination was reviewed with the aid of CAD. FINDINGS: The breast tissue is composed of scattered fibroglandular densities. There are no dominant masses, typically malignant calcifications or architectural distortion. There has been no significant interval change. MM/MM screening mammo BI w/CAD Procedure Note Hammad Thompson Jr., DO - 12/10/[address] [facility] [address] [address] Mammography Report Signed Patient: Rebecca Herrera LMR#: [id number] : 1950cct:[id number] Age/Sex: 73 / FAdm Date: 12/10/24 Loc: [place] Room:Type: [facility] Attending Dr: Patricio Sarah MD Ordering Provider: MURIEL Ramírez Date of Service: 12/10/24 Procedure(s): MM screening mammo BI w/CAD Accession Number(s): ([id number]) MM/MM screening mammo BI w/CAD:screening Copies to: MD Patricio Lorenzo MD-[facility] CLINICAL DATA: Screening for malignancy. SCREENING MAMMOGRAM - FULL FIELD DIGITAL WITH TOMOSYNTHESIS AND CAD COMPARISON:Mammograms dating back to 2020 Tomosynthesis craniocaudal and mediolateral oblique views of both breastswere obtained using low- dose digital technique. This examination was reviewed with the aid ofCAD. FINDINGS: The breast tissue is composed of scattered fibroglandular densities.There are no dominant masses, typically malignant calcifications or architectural distortion. There hasbeen no significant interval change. MM/MM screening mammo BI w/CAD IMPRESSION: NO MAMMOGRAPHIC EVIDENCE OF MALIGNANCY. ROUTINE FOLLOW-UP IS RECOMMENDED IN ONE YEAR. RESULT CODE: 1 Negative DENSITY CODE: 2 (approximately 25-50% glandular) There are scattered areasof fibroglandular density. FOLLOW UP: 1YR The false-negative rate of mammography is approximately 10-percent. Management of a palpable abnormality must be based on clinical grounds. Patient was entered into a reminder system with a target due date for thenext mammogram. Impression dictated by: Hammad Thompson Jr., D.ODemi 12/10/2024 11:10 AM Dictation Location: [facility] Dictated By: Hammad Thompson Jr, DO 12/10/24 1109 Signed By: <Electronically signed by Hammad Thompson Jr DO inOV> 12/10/24 1110 us Patricio Sarah MD IMG BI PROCEDURES Final Result * POCT Protime-INR, fingerstick docked device (11/22/2024 11:14 AM EDT) RESULTS 2.3 Blood Venous blood specimen / Unknown 11/22/2024 11:14 AM EDT Impressions Nas, CristalDEEJAY - 11/22/2024 11:14 AM EDT Patient here for INR INR- 2.3 PT- 25.3 Taking 2mg daily us Annika Mckeon MD POINT OF CARE TEST ENTER/EDIT OR DERABLES Final Result * Colonoscopy (02/16/2018 12:00 PM EDT) Anatomical Region Laterality Modality Endoscopy 02/16/2018 12:0 0 PM EDT Narrative 02/16/2018 12:00 PM EDT PERFORMED AT [facility] LOCATION:[id number] Normal Procedure Note CONVERSION, GENERIC - 12/18/2022 PERFORMED AT [facility] LOCATION:[id number] Normal us Irma Dupont MD ENDOSCOPY PROCEDURE ORDERABL ES Final Result from Last 3 Months or Most Recently Relevant to Health Maintenance Insurance [employer] Advance Directives Documents on File Type Date Recorded 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
--- OUTSIDE RECORDS SUMMARY | 2025-02-10 13:43 | XMS_ITS | Clinical Summary ---
Author Organization [facility] Address [address] [place] [address] Phone Care Team Providers Care Collections Technician Name Role Phone Annika Mckeon MD Primary Care Provider [phone] Allergies No known active allergies Medications warfarin (Coumadin) 2 mg tablet Take 1 tablet (2 mg) by mouth. Take as directed per After Visit Summary. Active PARoxetine (Paxil) 20 mg tablet Take 1 tablet (20 mg) by mouth once daily in the morning. Active buPROPion XL (Wellbutrin XL) 300 mg 24 hr tablet Take 1 tablet (300 mg) by mouth once daily. Do not crush, chew, or split. Active acetaminophen (Tylenol) 500 mg tablet Take by mouth every 6 hours if needed for mild pain (1 - 3). Active ergocalciferol (Vitamin D2) 1.25 MG (04348 UT) capsule Take 1 capsule (1,250 mcg) by mouth 1 (one) time per week. Active famotidine (Pepcid) 20 mg tablet Take 1 tablet (20 mg) by mouth once daily. Active hydroxychloroqu ine (Plaquenil) 200 mg tablet Take 1 tablet (200 mg) by mouth 2 times a day. Active lisinopril 2.5 mg tabletIndicatio ns:Dilated aortic root Take 1 tablet (2.5 mg) by mouth once daily. 90 tablet 3 09/14/2024 09/14/19 26 Active Active Problems Problem Noted Date Diagnosed Date Dilated aortic root 02/12/2024 History of DVT of lower extremity 02/12/2024 Nonrheumatic aortic valve stenosis 02/12/2024 BMI 27.0-27.9,adult 02/12/2024 Anticoagulated 02/12/2024 Factor V Leiden (Multi) 02/12/2024 Immunizations Immunization Administration Dates Next Due Influenza, seasonal, injectable 04/05/2024 Family History Medical History Relation Name Comments Alzheimer's disease Father Lung cancer Father Ovarian cancer Mother Rheum arthritis Mother Alzheimer's disease Sister Relation Name Status Comments Father Mother Sister 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 Tobacco Use Types Packs/Day Years Used Date Smoking Tobacco: Never Smokeless Tobacco: Never Tobacco Cessation:Counseling Given: Yes Alcohol Use Standard Drinks/Week Comments Yes 0 (1 standard drink = 0.6 oz pur e alcohol) Comments Unknown Sex and Gender Information Value Date Recorded Sex Assigned at Not on file Legal Sex Female 12:15 AM EST Gender Identity Not on file Sexual Orientation Not on file Last Filed Vital Signs Vital Sign Reading Time Taken Comments Blood Pressure 130/72 09/14/2024 1:36 PM EST Pulse 56 09/14/2024 1:36 PM EST Temperature - - Respiratory Rate - - Oxygen Saturation - - Inhaled Oxygen Concentration - - Weight 70.8 kg (156 lb) 09/14/2024 1:36 PM EST Height 162.6 cm (5' 4 ) 09/14/2024 1:36 PM EST Body Mass Index 26.78 09/14/2024 1:36 PM EST Plan of Treatment Upcoming Encounters Date Type Department Care Team (Late st Contact Info) Description 05/31/2025 1:40 PM EDT Office Visit [facility] [address] [phone] Ran Rodriguez MD [address] [facility] 2, [address] [address] Health Maintenance Due Date Last Done Comments CT Colonography 1950 FIT-DNA (Cologuard) 1950 FIT 1950 Lipid Panel 1950 Sigmoidoscopy 1950 Hepatitis C Screening 1970 DTaP/Tdap/Td Vaccines (1 - Tdap) 1974 RSV High Risk: (Elderly (60+) or Population) (1 - Risk 60-74 years 1-dose series) 2012 Mammogram 10/25/2023 10/24/2022, 10/03, 10/22/2021, Additional history exists COVID-19 Vaccine ( season) 2024 Bone Density Scan 08/29/2024 08/29/2022, , 09/11/2020 Medicare Annual Wellness Visit (AWV) 09/10/2024 09/09/2023, 08/29/2022, 08/28/2021, Additional history exists Influenza Vaccine (#1) 2025 , 04/05/2024, 04/20/2023, Additional history exists Colonoscopy 02/17/2028 02/16/2018 Colorectal Cancer Screening 02/17/2028 Pneumococcal Vaccine Completed 06/01/2019, 01/28/20 18 Zoster Vaccines Completed 07/18/2019, 05/03/2019 HIB Vaccines Aged Out No longer eligi ble based on patient's age to complete this topic HPV Vaccines (No Doses Required) Completed Hepatitis A Vaccines Aged Out No long er eligible based on patient's age to complete this topic Hepatitis B Vaccines Aged Out No long er eligible based on patient's age to complete this topic IPV Vaccines Aged Out No longer eligi ble based on patient's age to complete this topic Meningococcal Vaccine Aged Out No jyoti kimmy eligible based on patient's age to complete this topic Rotavirus Vaccines Aged Out No longer eligible based on patient's age to complete this topic Insurance [employer] Care Teams Collections Technician Relationship Specialty Start Date End Date Annika Mckeon MD [address] [place] [address] PCP - General Family Medicine 02/12/24
--- OUTSIDE RECORDS SUMMARY | 2025-02-10 13:43 | XMS_ITS | Encounter Summary ---
Author Organization [facility] Address [address] [place] [address] Care Team Providers Care Target Setter Name Role Phone Annika Maria MD Primary Care Provider [phone] Pippa Rouse NP Unavailable [phone] Annika Maria MD Unavailable Ghislaine Lawson RN Unavailable [phone] Annika Maria MD Unavailable Annika Maria MD Unavailable Encounter Details Date Type Department Care Team (Late st Contact Info) Description 12/15/2023 Clinisync Result Encounter [facility] External Department Unsolicited [...] often do you attend chur ch or samaritan services? More than 4 times per year 07/15/2023 Do you belong to any clubs o r organizations such as episcopalian groups, unions, fraternal or athletic groups, or [...] Recorded Patient Health Questionnaire-2 Score 4 09/09/2023 [facility] - Occupational [...] AM EDT Social Work [facility] [address] [place] [address] Sadaf Gutierrez LISW-S [address] [place], [place] [address] 02/22/2025 10:50 AM EDT Office Visit [facility] [address] [place] [address] Tyrese Swanson MD [address] [place] [address] 03/28/2025 12:20 PM EDT Office Visit [facility] [address] [place] [address] Annika Maria MD [address] [place], [place] [address] documented as of this encounter Procedures Procedure Name Priority Date/Time Associated Diagnosis Comments XR ABDOMEN 1V 12/15/2023 9:13 AM EDT documented in this encounter Results * XR ABDOMEN 1V (12/15/2023 9:13 AM EDT) Anatomical Region Laterality Modality Other 12/15/2023 9:13 AM EDT Narrative 12/15/2023 9:15 AM EDT [address] [address] XRay Report Signed Patient: TRENT ANDERS MR#: [id number] : 1950 Acct:[id number] Age/Sex: 72 / F ADM Date: 12/15/23 Loc: RAD Attending Dr: Jasper Almonte M.D. Ordering Physician: Jasper Almonte M.D. Date of Service: 12/15/23 Procedure(s): XR abdomen 1V Accession Number(s): [id number] cc: ANNIKA MARIA ; Jasper Almonte M.D. [address] [address] Patient Name: TRENT ANDERS MRN: [id number] date: 1950 Sex: F Assigned Patient Location: [facility] Current Patient Location: RAD Accession/Order Number: [id number] Exam Date: 12/15/2023 08:34 Report Date: 12/15/2023 09:13 At the request of: JASPER ALMONTE Procedure: XR abdomen 1V EXAMINATION: XR abdomen 1V HISTORY: Ureteral Stone N20.1, Kidney Stone N20.0 COMPARISON: No relevant comparison available. FINDINGS: KIDNEY/URETER - RIGHT: No visible renal or ureteral calcifications. KIDNEY/URETER - LEFT: No visible renal stones PELVIS: 8 mm left pelvic calcification BOWEL: No abnormal dilation or deviation. BONES: No acute abnormality. Degenerative changes OTHER: IVC filter. No abnormal gaseous collections. XR/XR abdomen 1V IMPRESSION: Possible distal 8mm left ureterolith Electronically authenticated by: ERIC BECKER Date: 12/15/2023 09:13 Dictated By: Eric Becker M.D. Signed By: 12/15/23914 DD/ 2 TD/TT: Supervisor Phosphorus Processing: Procedure Note Radiology, Radiologist, MD - 12/15/2023 [place] [address] XRay Report Signed Patient: TRENT ANDERSMR#: [id number] : 1950cct:[id number] Age/Sex: 72 / FADM Date: 12/15/23 Loc: [facility] Attending Dr: Jasper Almonte M.D. Ordering Physician: Jasper Almonte M.D. Date of Service: 12/15/23 Procedure(s): XR abdomen 1V Accession Number(s): [id number] cc: ANNIKA MARIA ; Jasper Almonte M.D. [address] [place] [address] Patient Name: TRENT ANDERS MRN: [id number] date: 1950 Sex: F Assigned Patient Location: [facility] Current Patient Location: [facility] Accession/Order Number: [id number] Exam Date: 12/15/2023 08:34 Report Date: 12/15/2023 09:13 At the request of: JASPER ALMONTE Procedure: XR abdomen 1V EXAMINATION: XR abdomen 1V HISTORY: Ureteral Stone N20.1, Kidney Stone N20.0 COMPARISON: No relevant comparison available. FINDINGS: KIDNEY/URETER - RIGHT: No visible renal or ureteral calcifications. KIDNEY/URETER - LEFT: No visible renal stones PELVIS: 8 mm left pelvic calcification BOWEL: No abnormal dilation or deviation. BONES: No acute abnormality. Degenerative changes OTHER: IVC filter. No abnormal gaseous collections. XR/XR abdomen 1V IMPRESSION: Possible distal 8mm left ureterolith Electronically authenticated by: ERIC BECKER Date: 12/15/2023 09:13 Dictated By: Eric Becker M.D. Signed By:12/15/23914 DD/ 2 TD/TT: Supervisor Phosphorus Processing: us Generic External Data Provider [facility] Final Result documented in this encounter Visit Diagnoses Not on filedocumented in this encounter Additional Health Concerns Assessment Noted Time PHQ-9 Depression Total Score: 8 09/09/19 24 2:00 PM EST documented as of this encounter Care Teams Target Setter Relationship Specialty Start Date End Date Annika Maria MD [address] [facility] [place] [address] PCP - General Family Medicine 12/27/22 Annika Maria MD [address] [facility] [place] [address] PCP - ACO Reach 10/03/23 09/09/24 Annika Maria MD [address] [place] [address] PCP - Devoted 08/04/24 Annika Maria MD [address] [facility] [place] [address] PCP - ACO Reach 09/17/24 11/04/24 Pippa Rouse NP [address] [place] [address] Nurse Practitioner Family Medicine 12/27/22 Ghislaine Lawson, RN [address] [place] [address] Registered Nurse Family Medicine 12/09/23 documented as of this encounter
--- OUTSIDE RECORDS SUMMARY | 2025-02-10 13:43 | XMS_ITS | Encounter Summary ---
Author Organization [facility] Address [address] [place] [address] Phone Care Team Providers Care Solar Development Engineer Name Role Phone Annika Mckeon MD Primary Care Provider [phone] Encounter Details Date Type Department Care Team (Late st Contact Info) Description 09/23/2023 Scanned Document [facility] [address] [place] [address] Scanning, Generic Provider 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 Tobacco Use [...] Description 05/31/2025 1:40 PM EDT Office Visit [facility] [address] [address] Ran Rodriguez MD [address] [facility] [address], Ran[address] [place] [address] documented as of this encounter Procedures Procedure Name Priority Date/Time Associated Diagnosis Comments ECHOCARDIOGRAM 09/23/2023 documented in this encounter Results * ECHOCARDIOGRAM (09/23/2023) Narrative 09/23/2023 Ordered by an unspecified provider. us Generic Provider Scanning CV ECHO PROCEDURES Fin al Result documented in this encounter Visit Diagnoses Not on filedocumented in this encounter Care Teams Solar Development Engineer Relationship Specialty Start Date End Date Annika Mckeon MD [address] [place] [address] PCP - General Family Medicine 02/12/24 documented as of this encounter
--- OUTSIDE RECORDS SUMMARY | 2025-02-10 13:43 | XMS_ITS | Encounter Summary ---
Author Organization [facility] Address [address] [place] [address] Care Team Providers Care Creasing Machine Operator Name Role Phone Annika Mckeon MD Primary Care Provider [phone] Pippa Rouse MEAL ATTENDANT Unavailable [phone] Annika Mckeon MD Unavailable Ghislaine Lawson RN Unavailable [phone] Annika Mckeon MD Unavailable Annika Mckeon MD Unavailable Reason for Visit * Reason Comments Med Refill Encounter Details Date Type Department Care Team (Late st Contact Info) Description 04/04/2023 Refill [facility] [address] [place] [address] Annika Mckeon MD [address] [place], [place] [phone] Factor 5 Leiden mutation, heterozygous ([facility]-HCC) (Primary Dx) 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 Tobacco Use Types Packs/Day Years Used Date Smoking Tobacco: Never Alcohol Use Standard Drinks/Week Comments Yes 0 (1 standard drink = 0.6 oz pure alcohol) 1-2 drinks 2-4x a month in the past year, Caffeine intake: 3-4 cups per day coffee, soda/pop PHQ-2 Answer Date Recorded Patient Health Questionnaire-2 Score 0 12/27/2022 Comments Unknown Sex and Gender Information Value Date Recorded Sex Assigned at Not on file Legal Sex Female 7:17 PM EDT Gender Identity Female 10/16/2022 7:17 PM EDT Sexual Orientation Asexual 06/29/2023 11 :24 PM EST documented as of this encounter Miscellaneous Notes * Telephone Encounter - Annika Mckeon MD - 04/04/2023 1:47 PM EDT Approvals with refills documented in this encounter Plan of Treatment Upcoming Encounters Date Type Department Care Team (Late st Contact Info) Description 02/21/2025 10:00 AM EDT Social Work [facility] [address] [place] [address] Sadaf Gutirerez LISW-S [address] [facility] [place] [address] 02/22/2025 10:50 AM EDT Office Visit [facility] [address] [place] [address] Tyrese Swanson MD [address] [place] [address] 03/28/2025 12:20 PM EDT Office Visit [facility] [address] [facility] [place] [address] Annika Mckeon MD [address] [facility] [place] [address] documented as of this encounter Visit Diagnoses Diagnosis Factor 5 Leiden mutation, heterozygous ([facility])- Primary documented in this encounter Care Teams Creasing Machine Operator Relationship Specialty Start Date End Date Annika Mckoen MD [address] [facility] [place] [address] PCP - General Family Medicine 12/27/22 Annika Mckeon MD [address] [place] [address] PCP - ACO Reach 10/03/23 09/09/24 Annika Mckeon MD [address] [facility] [place] [address] PCP - Devoted 08/04/24 Annika Mckeon MD [address] [place] [address] PCP - ACO Reach 09/17/24 11/04/24 Pippa Rouse NP [address] [facility] [place] [address] Nurse Practitioner Family Medicine 12/27/22 Ghislaine Lawson, RN [address] [place] [address] Registered Nurse Family Medicine 12/09/23 documented as of this encounter
--- OUTSIDE RECORDS SUMMARY | 2025-02-10 13:43 | XMS_ITS | Encounter Summary ---
Author Organization [facility] Address [address] [place] [address] Care Team Providers Care Senior Java Developer Name Role Phone Annika Mckeon MD Primary Care Provider [phone] Pippa Rouse SUPERVISOR COOLER SERVICE Unavailable [phone] Annika Mckeon MD Unavailable Ghislaine Lawson RN Unavailable [phone] Annika Mckeon MD Unavailable Annika Mckeon MD Unavailable Encounter Details Date Type Department Care Team (Late st Contact Info) Description 06/16/2023 Abstract [facility] [address] [place] [address] Annika Mckeon MD [address] [place] [address] 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 Tobacco Use Types [...] AM EDT Social Work [facility] [address] [place] [address] Sadaf Gutierrez LISW-S [address] [place] [address] 02/22/2025 10:50 AM EDT Office Visit [facility] [address] [place] [address] Tyrese Swanson MD [address] [place] [address] 03/28/2025 12:20 PM EDT Office Visit [facility] [address] [place] [address] Annika Mckeon MD [address] [place] [address] documented as of this encounter Visit Diagnoses Not on filedocumented in this encounter Care Teams Senior Java Developer Relationship Specialty Start Date End Date Annika Mckeon MD [facility] [place] [address] PCP - General Family Medicine 12/27/22 Annika Mckeon MD [address] [place] [address] [place] [address] PCP - ACO Reach 10/03/23 09/09/24 Annika Mckeon MD 1479 [facility] [place] [address] PCP - Devoted 08/04/24 Annika Mckeon MD [address] [facility] [place] [address] PCP - ACO Reach 09/17/24 11/04/24 Pippa Rouse NP [address] [facility] [place] [address] Nurse Practitioner Family Medicine 12/27/22 Ghislaine Lawson, NIKOS [address] [place] [address] Registered Nurse Family Medicine 12/09/23 documented as of this encounter
--- OUTSIDE RECORDS SUMMARY | 2025-02-10 13:43 | XMS_ITS | Encounter Summary ---
Author Organization [facility] Address [address] [place] [address] Care Team Providers Care Meat Stringer Name Role Phone Annika Mckeon MD Primary Care Provider [phone] Pippa Rouse BIN WORKER Unavailable [phone] Annika Mckeon MD Unavailable Ghislaine Lawson RN Unavailable [phone] Annika Mckeon MD Unavailable Annika Mckeon MD Unavailable Encounter Details Date Type Department Care Team (Late st Contact Info) Description 04/03/2023 Abstract [facility] [address] [place] [address] Thomas Davis DPM [address] [place], [place] [address] 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 Tobacco Use Types Packs/Day Years Used Date Smoking Tobacco: Never Tobacco Cessation:Counseling Given: Not Answered Alcohol Use Standard Drinks/Week Comments Yes 0 [...] PM EST documented as of this encounter Plan of Treatment Upcoming Encounters Date Type Department Care Team (Late st Contact Info) Description 02/21/2025 10:00 AM EDT Social Work [facility] [address] [facility] [place] [address] Sadaf Gutierrez LISW-S [address] [place] [address] 02/22/2025 10:50 AM EDT Office Visit [facility] [address] [place] [address] Tyrese Swanson MD [address] [place] [address] 03/28/2025 12:20 PM EDT Office Visit [facility] [address] [place] [address] [phone] Annika Mckeon MD [address] [facility] [place] [address] documented as of this encounter Visit Diagnoses Not on filedocumented in this encounter Care Teams Meat Stringer Relationship Specialty Start Date End Date Annika Mckeon MD [address] [facility] [place] [address] PCP - General Family Medicine 12/27/22 Annika Mckeon MD [address] [facility] [place] [address] PCP - ACO Reach 10/03/23 09/09/24 Annika Mckeon MD [address] [facility] [place] [address] PCP - Devoted 08/04/24 Annika Mckeon MD [address] [place] [address] PCP - ACO Reach 09/17/24 11/04/24 Pippa Rouse NP [address] [place], [place] [phone] Nurse Practitioner Family Medicine 12/27/22 Ghislaine Lawson, NIKOS [address] [facility] [place] [address] Registered Nurse Family Medicine 12/09/23 documented as of this encounter
--- OUTSIDE RECORDS SUMMARY | 2025-02-10 13:43 | XMS_ITS | Encounter Summary ---
Author Organization [facility] Address [address] [place] [address] Phone Care Team Providers Care Block Setter Gypsum Name Role Phone Annika Mckeon MD Primary Care Provider [phone] Encounter Details Date Type Department Care Team (Late st Contact Info) Description 12/01/2023 Scanned Document [facility] [address] [place] [address] Scanning, Generic Provider 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 Tobacco Use [...] Description 05/31/2025 1:40 PM EDT Office Visit [facility] [address] [facility] [address] [place] [address] Ran Rodriguez MD [address] [facility] [address], [address] [place] [address] documented as of this encounter Visit Diagnoses Not on filedocumented in this encounter Care Teams Block Setter Gypsum Relationship Specialty Start Date End Date Annika Mckeon MD [address] [place], [place] [address] PCP - General Family Medicine 02/12/24 documented as of this encounter
--- OUTSIDE RECORDS SUMMARY | 2025-02-10 13:43 | XMS_ITS | Encounter Summary ---
Author Organization [facility] Address [address] [place] [address] Care Team Providers Care Associate Financial Planner Name Role Phone Annika Mckeon MD Primary Care Provider [phone] Pippa Rouse RECOIL SPRING WINDER Unavailable [phone] Annika Mckeon MD Unavailable Ghislaine Lawson RN Unavailable [phone] Annika Mckeon MD Unavailable Annika Mkceon MD Unavailable Encounter Details Date Type Department Care Team (Late st Contact Info) Description 04/22/2023 Abstract [facility] [address] [place] [address] nAnika Mckeon MD [address] [place] [address] 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 Tobacco Use Types [...] Social Work [facility] BH [address] [place] [address] Sadaf Gutierrez LISW-S [address] [place] [address] 02/22/2025 10:50 AM EDT Office Visit [facility] [address] [place] [address] Tyrese Swanson MD [address] [place] [address] 03/28/2025 12:20 PM EDT Office Visit [facility] [address] [place] [address] Annika Mckeon MD [address] [facility] [place] [address] documented as of this encounter Visit Diagnoses Not on filedocumented in this encounter Care Teams Associate Financial Planner Relationship Specialty Start Date End Date Annika Mckeon MD [address] [facility] [place] [address] PCP - General Family Medicine 12/27/22 Annika Mckeon MD [address] [facility] [place] [address] PCP - ACO Reach 10/03/23 09/09/24 Annika Mckeon MD [address] [facility] [place] [address] PCP - Devoted 08/04/24 Annika Mckeon MD [address] [facility] [place] [address] PCP - ACO Reach 09/17/24 11/04/24 Pippa Rouse NP [address] [place] [address] Nurse Practitioner Family Medicine 12/27/22 Ghislaine Lawson RN [address] [facility] [place] [address] Registered Nurse Family Medicine 12/09/23 documented as of this encounter
--- OUTSIDE RECORDS SUMMARY | 2025-02-10 13:44 | XMS_ITS | Encounter Summary ---
Author Organization [facility] Address [address] [place] [address] Care Team Providers Care Electronic Test Technician Name Role Phone Annika Mckeon MD Primary Care Provider [phone] Pippa Rouse RED CROSS EXECUTIVE DIRECTOR Unavailable [phone] Ghislaine Lawson RN Unavailable [phone] Annika Mckeon MD Unavailable Annika Mckeon MD Unavailable Encounter Details Date Type Department Care Team (Late st Contact Info) Description 10/18/2024 Orders Only [facility] [address] [place] [address] Tyrese Swanson MD [address] [place] [address] 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 Tobacco Use Types Packs/Day Years [...] often do you attend chur ch or spiritism services? More than 4 times per year 07/15/2023 Do you belong to any clubs o r organizations such as congregational groups, unions, fraternal or athletic groups, or [...] Recorded Patient Health Questionnaire-2 Score 0 09/30/2024 [facility] - Occupational [...] place to sleep or slept in a penitentiary (including now)? No 07/15/2023 Comments No Sex [...] 10:00 AM EDT Social Work [facility] [address] [place] [address] Sadaf Gutierrez LISW-S [address] [place] [address] 02/22/2025 10:50 AM EDT Office Visit [facility] [address] [place] [address] Tyrese Swanson MD [address] [place] [address] 03/28/2025 12:20 PM EDT Office Visit [facility] [address] [place] [address] Annika Mckeon MD [address] [place], [place] [phone] documented as of this encounter Procedures Procedure Name Priority Date/Time Associated Diagnosis Comments CREATININE, 24 HOUR URINE Routine 10/18/2024 11:29 AM EDT CBC Routine 10/18/2024 11:29 AM EDT MAGNESIUM Routine 10/18/2024 11:29 AM EDT HEPATIC FUNCTION PANEL Routine 10/18/2024 11:29 AM EDT documented in this encounter Results * CBC (10/18/2024 11:29 AM EDT) Blood Venous blood specimen / Unknown Tyrese Swanson MD LAB BLOOD ORDERABLES Final Re sult * Hepatic function panel (10/18/2024 11:29 AM EDT) Blood Venous blood specimen / Unknown Tyrese Swanson MD LAB BLOOD ORDERABLES Final Re sult * Magnesium (10/18/2024 11:29 AM EDT) Blood Venous blood specimen / Unknown us Tyrese Swanson MD LAB BLOOD ORDERABLES Final Re sult * Creatinine, urine, 24 hour (10/18/2024 11:29 AM EDT) Urine Urine specimen obtained by clean catch procedure / Unknown us Tyrese Swanson MD LAB URINE ORDERABLES Final Re sult documented in this encounter Visit Diagnoses Not on filedocumented in this encounter Additional Health Concerns Assessment Noted Time PHQ-9 Depression Total Score: 0 09/30/19 25 3:00 PM EST documented as of this encounter Care Teams Electronic Test Technician Relationship Specialty Start Date End Date Annika Mckeon MD 14[address] [facility] [place] [address] PCP - General Family Medicine 12/27/22 Annika Mckeon MD 14[address] [facility] [place] [address] PCP - Devoted 08/04/24 Annika Mckeon MD [address] [facility] [place] [address] PCP - ACO Reach 09/17/24 11/04/24 Pippa Rouse NP [address] [place] [address] Nurse Practitioner Family Medicine 12/27/22 Ghislaine Lawson, RN [address] [place] [address] Registered Nurse Family Medicine 12/09/23 documented as of this encounter
--- OUTSIDE RECORDS SUMMARY | 2025-02-10 13:44 | XMS_ITS | Encounter Summary ---
Author Organization [facility] Address [address] [place] [address] Care Team Providers Care Software Manager Name Role Phone Annika Mckeon MD Primary Care Provider [phone] Pippa Rouse NP Unavailable [phone] Annika Mckeon MD Unavailable Ghislaine Lawson RN Unavailable [phone] Annika Mckeon MD Unavailable Annika Mckeon MD Unavailable Reason for Referral * Imaging (Routine) - Closed Specialty Diagnoses / Procedures Referred By Contac t Referred To Contact Radiology Diagnoses Nonrheumatic aortic valve stenosis Procedures Transthoracic Echo (TTE) Complete Annika Mckeon MD [facility] [place] [address] Phone: tel: fax: [facility] [address] [place] [address] Referral ID Status Reason Start Date Expiration Date V isits Requested Visits Authorized [id number] Closed Perform Procedure 09/13/2023 03/11/2024 1 1 Encounter Details Date Type Department Care Team (Late st Contact Info) Description 09/13/2023 Orders Only [facility] [address] [place] [phone] Annika Mckeon MD [address] [place] [address] [phone] Nonrheumatic aortic valve stenosis (Primary Dx) 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 Tobacco Use Types [...] How often do you attend chur or holiness services? More than 4 times per year 07/15/2023 Do you belong to any clubs o r organizations such as synagogue groups, unions, fraternal or athletic groups, or [...] containing alc ohol? 2-4 times a month 09/15/2023 Q2: How many drinks containi ng alcohol do you have on a typical day when you are drinking? 1 or 2 09/15/2023 Q3: How often do you have si x or more drinks on one occasion? Never 09/15/2023 Overall Financial Resource Strain (CARDIA) Answe r Date Recorded How hard is it for you to pa y for the very basics like food, housing, medical care, and heating? Not very hard 07/15/2023 PHQ-2 Answer Date Recorded Patient Health Questionnaire-2 Score 4 09/09/2023 [facility] Occupat ional [facility] - Occupational Stress Questionnaire Answer Date Recorded [...] place to sleep or slept in a long-term (including now)? No 07/15/2023 Comments Unknown Sex and Gender Information Value Date Recorded Sex Assigned at Not on file Legal Sex Female 7:17 PM EDT Gender Identity Female 10/16/2022 7:17 PM EDT Sexual Orientation Asexual 06/29/2023 11 :24 PM EST documented as of this encounter Functional Status * Audit-C Score Answer Date of Assessment Author 2 09/15/2023 6:34 AM EST Roberto Carlos osmelRatna Dejuan A. * Question Answer Date of Assessment Author Q1: How often do you have a drink containing alcohol? 2-4 times a month 09/15/2023 6:34 AM EST Villjennifferegosmel Francheska a Dejuan A. Q2: How many drinks containing alcohol do you have on a typical day when you are drinking? 1 or 2 09/15/2023 6:34 AM EST Villadiego, Francheska a Dejuan A. Q3: How often do you have six or more drinks on one occasion? Never 09/15/2023 6:34 AM EST Roberto Carloso Francheska wilmar Dejuan A. documented as of this encounter Plan of Treatment Upcoming Encounters Date Type Department Care Team (Late st Contact Info) Description 02/21/2025 10:00 AM EDT Social Work [facility] [address] [place] [address] Sadaf Gutierrez [facility] [address] [place], [place] [phone] 02/22/2025 10:50 AM EDT Office Visit [facility] [address] [place] [address] Tyrese Swanson MD [address] [place] [address] 03/28/2025 12:20 PM EDT Office Visit [facility] [address] [place] [phone] Annika Mckeon MD [address] [place], [place] [phone] Scheduled Orders Name Type Priority Associated Diagnoses Order Schedule Transthoracic Echo (TTE) Complete Echocardiography Routine Nonrheumatic aortic valve stenosis Expected: 09/13/2023 (Approximate), Expires: 09/13/2025 documented as of this encounter Visit Diagnoses Diagnosis Nonrheumatic aortic valve stenosis- Primary documented in this encounter Additional Health Concerns Assessment Noted Time PHQ-9 Depression Total Score: 8 09/09/19 24 2:00 PM EST documented as of this encounter Care Teams Software Manager Relationship Specialty Start Date End Date Annika Mckeon MD [address] [facility] [place] [address] PCP - General Family Medicine 12/27/22 Annika Mckeon MD [address] [facility] [place] [address] PCP - ACO Reach 10/03/23 09/09/24 Annika Mckeon MD [address] [facility] [place] [address] PCP - Devoted 08/04/24 Annika Mckeon MD [address] [facility] [place] [address] PCP - ACO Reach 09/17/24 11/04/24 Pippa Rouse NP [address] [place] [address] Nurse Practitioner Family Medicine 12/27/22 Ghislaine Lawson, NIKOS [address] [place] [address] Registered Nurse Family Medicine 12/09/23 documented as of this encounter
--- OUTSIDE RECORDS SUMMARY | 2025-02-10 13:44 | XMS_ITS | Encounter Summary ---
Author Organization [facility] Address [address] [place], [place] [id number] Care Team Providers Care Line Out Worker Name Role Phone Unavailable Primary Care Provider Unavailabl e Source Comments In the event this information is protected by the Federal Confidentiality of Alcohol and Drug AbusePatient Records regulations: The Federal rules restrict any use of the information to criminally investigate or prosecute any alcohol or drug abuse patient.[facility] Encounter Details Date Type Department Care Team (Late st Contact Info) Description 10/06/2023 Lab Requisition [facility] [address] [place] [phone] Miguel Chang MD [address] [place] [address] Person encountering health services to consult on behalf of another person 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 Tobacco Use Types Packs/Day Years Used Date Smoking Tobacco: Never Assessed Comments Unknown Sex and Gender Information Value Date Recorded Sex Assigned at Not on file Legal Sex Female 2:45 PM EST Gender Identity Not on file Sexual Orientation Not on file documented as of this encounter Plan of Treatment Not on file documented as of this encounter Procedures Procedure Name Priority Date/Time Associated Diagnosis Comments SURGICAL PATHOLOGY REFERENCE LAB CONSULT Routine 10/06/2023 2:50 PM EST Person encountering health services to consult on behalf of another person documented in this encounter Results * SURGICAL PATHOLOGY REFERENCE LAB CONSULT (10/06/2023 2:50 PM EST) Case Report Surgical Pathology Report Case: [id number] Authorizing Provider: Miguel Chang MD Collected: 10/06/2023 02:50 PM Ordering Location: [facility] Received: 10/06/2023 02:51 PM [facility] Pathologist: Ajit Lawton MD Specimen: SLIDE(S), 15 SLIDES [id number] 10/13/2023 5:23 PM EDT [facility] FINAL DIAGNOSIS A. 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 10/13/2023 5:23 PM EDT [facility] at 1723 EDT Diagnosis Comment Thank you for providing the requested block so that we could perform additional ancillary studies. As you note there are focal areas of conventional pleomorphic adenoma as well as other foci with a prominent trabecular/canalicula r growth pattern. In the areas of trabecular/canalicula r growth, the tumor cells are positive for S-100 and SOX-10 and negative for p40 by your immunohistochemical stains. Our additional stains, in these trabecular/canalicula r areas, demonstrate lack of expression of SMA and SMMS-1. However, the tumor cells are positive for HMGA2 and PLAG1. This morphology and immunophenotype has been characterized in pleomorphic adenoma (see reference). We have also encountered carcinomas arising out of this specific phenotype that can have a subtle pattern of invasion, and thus we considered that possibility here given the nodular growth pattern; however, the overall growth does not meet our threshold for classification as a carcinoma ex pleomorphic adenoma. My colleague, Dr. Obey Howard, has also reviewed this case and agrees with the diagnosis. Reference: Mona Hyatt et al. HMGA2-WIF1 Rearrangements Characterize a Distinctive Subset of Salivary Pleomorphic Adenomas With Prominent Trabecular (Canalicular Adenoma-like) Morphology. Am J Surg Pathol. 2021Sep 04;46(2):190-199. Laboratory Developed Test (LDT) Disclaimer: Performance characteristics of immunohistochemical, immunofluorescent and chromogenic in-situ hybridization tests have been determined by the performing laboratory within [facility] s [facility] [place] ([facility], [facility], [facility], [facility], [facility], [facility], or [facility]) in a manner consistent with CLIA requirements. One or more of these tests have not been cleared or approved by the FDA. [facility] is regulated under CLIA as qualified to perform high-complexity testing. These tests are used for clinical purposes. They should not be regarded as investigational or for research. Positive and negative controls stain appropriately. 10/13/2023 5:23 PM EDT [facility] Clinical History CONSULT REQUESTED 10/13/2023 5:23 PM EDT [facility] Performing Lab Diagnostic interpretation performed at [facility], [address] [place] [address] CLIA# [id number] Poultry Inspector: Shade Smith M.D. 10/13/2023 5:23 PM EDT [facility] Blocks or Slides MICROSCOPE SLIDE / Unknown 10/06/2023 2:50 PM EST 10/06/2023 2:51 PM EST us Miguel Chang MD SURGICAL PATHOLOGY Final Re sult [facility] [address] [place], [place] [address] [place] [address], documented in this encounter Visit Diagnoses Diagnosis Person encountering health services to consult on behalf of another person Other person consulting on behalf of another person documented in this encounter
--- OUTSIDE RECORDS SUMMARY | 2025-02-10 13:44 | XMS_ITS | Encounter Summary ---
Author Organization [facility] Address [address] [place] [address] Care Team Providers Care Tub Rider Name Role Phone Annika Mckeon MD Primary Care Provider [phone] Pippa Rouse DELIVERY MGR Unavailable [phone] Annika Mckeon MD Unavailable Ghislaine Lawson RN Unavailable [phone] Annika Mckeon MD Unavailable Annika Mckeon MD Unavailable Encounter Details Date Type Department Care Team (Late st Contact Info) Description 09/23/2023 External Result Encounter [facility] External Department Unsolicited Annika Mckeon MD [address] [place] [address] 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 Tobacco Use Types [...] How often do you attend chur or cheondoism services? More than 4 times per year 07/15/2023 Do you belong to any clubs o r organizations such as muslim groups, unions, fraternal or athletic groups, or [...] Recorded Patient Health Questionnaire-2 Score 4 09/09/2023 [facility] [place] of Occupat ional Health - Occupational Stress [...] place to sleep or slept in a alf (including now)? No 07/15/2023 Comments Unknown Sex [...] AM EDT Social Work [facility] [address] [place] [address] Sadaf Gutierrez [facility] [address] [place], [place] [phone] 02/22/2025 10:50 AM EDT Office Visit [facility] [address] [place] [phone] Tyrese Swanson MD [address] [place] [address] 03/28/2025 12:20 PM EDT Office Visit [facility] [address] [place] [address] Annika Mckeon MD [address] [place], [place] [phone] documented as of this encounter Procedures Procedure Name Priority Date/Time Associated Diagnosis Comments CONGENITAL TRANSTHORACIC ECHO (TTE) COMPLETE 09/23/2023 7:48 AM EST documented in this encounter Results * Congenital transthoracic echo (TTE) complete (09/23/2023 7:48 AM EST) Anatomical Region Laterality Modality Heart Ultrasound 09/23/2023 7:48 AM EST Narrative 09/23/2023 4:26 PM EST [facility] [place] [address] [place] [address] Echocardiogram Signed Patient: Rebecca Herrera MR#: [id number] : 1950 Acct:[id number] Age/Sex: 72 / F ADM Date: 09/23/23 Loc: Room: Type: [facility] Attending Dr: Annika Mckeon MD Ordering Provider: Annika Mckeon MD Date of Service: 09/23/23/ ECH/ECH echo transthoracic: Non-rheumatic . Copies to: MD Tom Lorenzo MD BSA: 1.8 m2 BP: 115/63 mmHg HR: 51 Reason For Study: Non-rheumatic . History: Aortic Aneurysm. Interpretation Summary The left ventricular size, thickness and function are normal Ejection Fraction = 60-65%. The left atrium appears mildly dilated. Mild valvular aortic stenosis. There is trace mitral regurgitation. There is trace tricuspid regurgitation. Procedure/Quality: A two-dimensional transthoracic echocardiogram with color flow and Doppler was performed. The study was technically good in quality. Left Ventricle: The left ventricular size, thickness and function are normal. Ejection Fraction = 60-65%. No left ventricular thrombus or mass is seen. Left Atrium: The left atrium appears mildly dilated. The atrial septum appears normal. Right Atrium: The right atrium appears normal in size. Right Ventricle: The right ventricular size, thickness and function are normal. Aortic Valve: The aortic valve is moderately calcified. Mild valvular aortic stenosis. Mitral Valve: The mitral valve is mildly sclerotic. There is trace mitral regurgitation. Tricuspid Valve: The tricuspid valve is normal in structure. There is trace tricuspid regurgitation. Pulmonic Valve: The pulmonic valve is not well visualized. Arteries: Borderline aortic root dilatation. Moderately dilated ascending aorta. Pericardium/Pleura: No pericardial effusion seen. There is no pleural effusion. IVC/Hepatic Veins: Moderately dilated inferior vena cava. Measurements with Normals IVSd: 0.95 cm (0.7-1.1 cm)LVIDd: 4.8 cm (3.7-5.4 cm) LVPWd: 1.1 cm (0.7-1.1 cm)LVIDs: 3.1 cm (2.3-3.6 cm) LA dimension: 4.4 cm (2.3-4.0 cm)Ao root diam: 3.7 cm(2.0-3.6 cm) asc Aorta Diam: 4.5 cm(2.1-3.4cm) Doppler with Normals LV V1 max: 121.8 cm/sec (0.7-1.7m/s)MV E max eugenio: 95.7 cm/sec(0.8-1.3m/s) MV A max eugenio: 121.4 cm/sec(0.0-0.0m/s) MV E/A: 0.79 (<1.5) MMode/2D Measurements Calculations TAPSE: 2.6 cm FS: 36.2 % Ao root area: LVOT diam: 2.3 cm RV S Eugenio: EDV(Teich): 10.9 cm2 LVOT area: 14.6 cm/sec 108.3 ml 4.0 cm2 ESV(Teich): 37.1 ml EF(Teich): 65.8 % __ LVLd ap4: 7.7 cm SV(MOD-sp4): EDV(MOD-sp4): 58.7 ml 95.6 ml LVLs ap4: 6.4 cm ESV(MOD-sp4): 36.9 ml EF(MOD-sp4): 61.4 % Doppler Measurements Calculations MV dec time: MV max PG: E/E' lat: 14.4 MV dec slope: 0.26 sec 77.0 mmHg E/E' med: 16.3 362.5 cm/sec2 __ Ao V2 max: LV V1 max PG: MR max eugenio: RAP systole: 8.0 mmHg 252.2 cm/sec 5.9 mmHg 439.8 cm/sec Ao max PG: LV V1 mean PG: MR max P.4 mmHg 3.3 mmHg 77.4 mmHg Ao mean PG: LV V1 mean: 14.9 mmHg 86.1 cm/sec Ao V2 mean: LV V1 VTI: 29.3 cm 180.1 cm/sec Ao V2 VTI: 61.8 cm MALVIN(I,D): 1.9 cm2 MALVIN(V,D): 1.9 cm2 Measurements from QLAB CI (): ED Mass (): LAEF (): 49.0 % BSA (): 1.8 m2 144.0 grams 2.7 l/min/m2 __ BRIAN (): LAVmax (): LAVmin (): 53.0 mlPat Height (): 104.0 ml 162.0 cm 57.0 ml/m2 __ Pat Weight (): 77.0 kg QLAB Heart Model EDV ()_phl: 159.0 ml EF ()_phl: 64.0 % ED Current ()_phl: 60.0 % ESV ()_phl: 57.0 ml HR ()_phl: 48.0 BPMES Current ()_phl: 30.0 % LV Length ED ()_phl: 86.0 mmSV ()_phl: 102.0 mlED Default ()_phl: 60.0 % LV Length ES ()_phl: 65.0 mm ES Default ()_phl: 30.0 % Transcribed By: SCV Performed At: 09/23/23 0748 Signed By: Tom Escalante MD 09/23/23 1625 Procedure Note Oneyda Escalante MD - 09/24/2023 [facility] [place] [address] [place] [address] Echocardiogram Signed Patient: Rebecca Herrera LMR#: [id number] : 3Acct:[id number] Age/Sex: 72 / FADM Date: 09/23/23 Loc: Room:Type: [facility] Attending Dr: Annika Mckeon MD Ordering Provider: Annika Mckeon MD Date of Service: 09/23/23/ ECH/ECH echo transthoracic: Non-rheumatic . Copies to: MD Tom Lorenzo MD BSA: 1.8 m2 BP: 115/63 mmHg HR: 51 Reason For Study: Non-rheumatic . History: Aortic Aneurysm. Interpretation Summary The left ventricular size, thickness and function are normal Ejection Fraction = 60-65%. The left atrium appears mildly dilated. Mild valvular aortic stenosis. There is trace mitral regurgitation. There is trace tricuspid regurgitation. Procedure/Quality: A two-dimensional transthoracic echocardiogram withcolor flow and Doppler was performed. The study was technically good in quality. Left Ventricle: The left ventricular size, thickness and function are normal. Ejection Fraction = 60-65%. No left ventricular thrombus or massis seen. Left Atrium: The left atrium appears mildly dilated. The atrial septum appears normal. Right Atrium: The right atrium appears normal in size. Right Ventricle: The right ventricular size, thickness and function are normal. Aortic Valve: The aortic valve is moderately calcified. Mild valvularaortic stenosis. Mitral Valve: The mitral valve is mildly sclerotic. There is tracemitral regurgitation. Tricuspid Valve: The tricuspid valve is normal in structure. There istrace tricuspid regurgitation. Pulmonic Valve: The pulmonic valve is not well visualized. Arteries: Borderline aortic root dilatation. Moderately dilatedascending aorta. Pericardium/Pleura: No pericardial effusion seen. There is no pleural effusion. IVC/Hepatic Veins: Moderately dilated inferior vena cava. Measurements with Normals IVSd: 0.95 cm (0.7-1.1 cm)LVIDd: 4.8 cm (3.7-5.4 cm) LVPWd: 1.1 cm (0.7-1.1 cm)LVIDs: 3.1 cm (2.3-3.6 cm) LA dimension: 4.4 cm (2.3-4.0 cm)Ao root diam: 3.7 cm(2.0-3.6 cm) asc Aorta Diam: 4.5 cm(2.1-3.4cm) Doppler with Normals LV V1 max: 121.8 cm/sec (0.7-1.7m/s)MV E max eugenio: 95.7cm/sec(0.8-1.3m/s) MV A max eugenio: 121.4 cm/sec(0.0-0.0m/s) MV E/A: 0.79 (<1.5) MMode/2D Measurements Calculations TAPSE: 2.6 cm FS: 36.2 % Ao root area: LVOT diam:2.3 cm RV S Eugenio: EDV(Teich): 10.9 cm2 LVOT area: 14.6 cm/sec 108.3 ml 4.0 cm2 ESV(Teich): 37.1 ml EF(Teich): 65.8 % __ LVLd ap4: 7.7 cm SV(MOD-sp4): EDV(MOD-sp4): 58.7 ml 95.6 ml LVLs ap4: 6.4 cm ESV(MOD-sp4): 36.9 ml EF(MOD-sp4): 61.4 % Doppler Measurements Calculations MV dec time: MV max PG: E/E' lat: 14.4 MV dec slope: 0.26 sec 77.0 mmHg E/E' med: 16.3 362.5 cm/sec2 __ Ao V2 max: LV V1 max PG: MR max eugenio: RAP systole: 8.0mmHg 252.2 cm/sec 5.9 mmHg 439.8 cm/sec Ao max PG: LV V1 mean PG: MR max P.4 mmHg 3.3 mmHg 77.4 mmHg Ao mean PG: LV V1 mean: 14.9 mmHg 86.1 cm/sec Ao V2 mean: LV V1 VTI: 29.3 cm 180.1 cm/sec Ao V2 VTI: 61.8 cm MALVIN(I,D): 1.9 cm2 MALVIN(V,D): 1.9 cm2 Measurements from QLAB CI (HM): ED Mass (HM): LAEF (): 49.0% BSA (): 1.8 m2 144.0 grams 2.7 l/min/m2 __ BRIAN (): LAVmax (): LAVmin (): 53.0 mlPat Height (): 104.0 ml 162.0 cm 57.0 ml/m2 __ Pat Weight (): 77.0 kg QLAB Heart Model EDV ()_phl: 159.0 ml EF ()_phl: 64.0 % ED Current ()_phl:60.0 % ESV ()_phl: 57.0 ml HR ()_phl: 48.0 BPMES Current ()_phl:30.0 % LV Length ED ()_phl: 86.0 mmSV ()_phl: 102.0 mlED Default ()_phl:60.0 % LV Length ES ()_phl: 65.0 mm ES Default ()_phl:30.0 % Transcribed By: SCV Performed At: 09/23/23 0748 Signed By: Tom Escalante MD 09/23/23 1625 Annika Mckeon MD CV ECHO PROCEDURES Final Result documented in this encounter Visit Diagnoses Not on filedocumented in this encounter Additional Health Concerns Assessment Noted Time PHQ-9 Depression Total Score: 8 09/09/19 24 2:00 PM EST documented as of this encounter Care Teams Tub Rider Relationship Specialty Start Date End Date Annika Mckeon MD [address] [facility] [place] [address] PCP - General Family Medicine 12/27/22 Annika Mckeon MD [address] [facility] [place] [address] PCP - ACO Reach 10/03/23 09/09/24 Annika Mckeon MD [address] [facility] [place] [address] PCP - Devoted 08/04/24 Annika Mckeon MD [address] [facility] [place] [address] PCP - ACO Reach 09/17/24 11/04/24 Pippa Rouse NP [address] [facility] [place] [address] Nurse Practitioner Family Medicine 12/27/22 Ghislaine Lawson, RN [address] [facility] [place] [address] Registered Nurse Family Medicine 12/09/23 documented as of this encounter
--- OUTSIDE RECORDS SUMMARY | 2025-02-10 13:44 | XMS_ITS | Clinical Summary ---
Author Organization [facility] Address [address] [place], [place] [id number] Care Team Providers Care Neck Fitter Name Role Phone Unavailable Primary Care Provider Unavailabl e 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 Tobacco Use Types Packs/Day Years Used Date Smoking Tobacco: Never Assessed Comments Unknown Sex and Gender Information Value Date Recorded Sex Assigned at Not on file Legal Sex Female 2:45 PM EST Gender Identity Not on file Sexual Orientation Not on file Plan of Treatment Not on file Insurance MEDICARE MMO MEDICARE SUPPLEMENT
--- OUTSIDE RECORDS SUMMARY | 2025-02-10 13:44 | XMS_ITS | Clinical Summary ---
Author Organization [employer] tem Address [id number] [address] [place] [address] Care Team Providers Care Continuity Tester Name Role Phone Annika Mckeon MD Primary Care Provider [phone] Allergies No known active allergies Medications fluticasone (FLONASE) 50 mcg/actuation nasal spray Administer 2 sprays into each nostril in the morning. Active PARoxetine (PAXIL) 20 mg tablet Take 1 tablet (20 mg total) by mouth every morning. Active therapeutic multivitamin (THERAGRAN) tablet Take 1 tablet by mouth in the morning. Active acetaminophen (TYLENOL) 325 mg tablet Take 2 tablets (650 mg total) by mouth in the morning. Active clobetasol (TEMOVATE) 0.05 % cream 7 Active ergocalciferol, vitamin D2, (VITAMIN D2 ORAL) Take 1.25 mg by mouth. 9 times a week Active buPROPion XL (WELLBUTRIN XL) 150 mg 24 hr tablet Take 1 tablet (150 mg total) by mouth in the morning. 9 Active hydroxychloroquin e (PLAQUENIL) 200 mg tablet Take 1 tablet (200 mg total) by mouth in the morning and 1 tablet (200 mg total) before bedtime. Active famotidine (PEPCID) 20 mg tablet Take 1 tablet (20 mg total) by mouth in the morning. 1 Active warfarin (COUMADIN) 1 mg tablet Take 2 tablets (2 mg total) by mouth in the evening. Active albuterol (PROVENTIL HFA;VENTOLIN HFA) 90 mcg/actuation inhalerIndication s:Mild intermittent asthma, unspecified whether complicated Inhale 2 puffs every 6 (six) hours as needed for wheezing. 6.7 g 5 2 Active warfarin (COUMADIN) 4 mg tablet Take 1 tablet (4 mg total) by mouth 3 (three) times a week. Takes on Friday 4 Active Active Problems Patient Care Coordination No te Formatting of this note migh t be different from the original. DME: [facility] Problem Noted Date Diagnosed Date Iron deficiency anemia 01/13/2018 Adrenal insufficiency 04/17/2017 Arthralgia 02/26/2017 Pulmonary nodule 02/26/2017 Cough 02/26/2017 EVELYNE on CPAP 10/09/2016 Mild persistent asthma without complication 03/2017 Resolved Problems Problem Noted Date Diagnosed Date Resolved Date Mediastinal lymphadenopathy 02/26/2017 04/23/2017 Cough 10/09/2016 02/26/2017 Family History Medical History Relation Name Comments Alzheimer's disease Father Heart disease Father Angina Mother Ovarian cancer Mother Anesthesia problems Neg Hx Breast cancer Neg Hx Colon cancer Neg Hx Relation Name Status Comments Father (Age 81) Mother (Age 72) 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 Tobacco Use Types Packs/Day Years Used Date Smoking Tobacco: Never Smokeless Tobacco: Never Tobacco Cessation:Counseling Given: Not Answered Alcohol Use Standard Drinks/Week Comments Yes 2 (1 standard drink = 0.6 oz pur e alcohol) social Childcare Answer Date Recorded Childcare Unknown 01/13/2019 Employment Answer Date Recorded Employment Unknown 01/13/2019 Hunger Screening Answer Date Recorded Within the past 12 months we worried whether our food would run out before we got money to buy more. Never True 05/31/2024 Within the past 12 months th e food we bought just didn't last and we didn't have money to get more. Never True 05/31/2024 Purpose - Life Answer Date Recorded Purpose and direction in life Unknown Comments No Sex and Gender Information Value Date Recorded Sex Assigned at Not on file Legal Sex Female 11:21 AM EDT Gender Identity Not on file Sexual Orientation Not on file Last Filed Vital Signs Vital Sign Reading Time Taken Comments Blood Pressure 103/60 05/31/2024 11:31 AM EDT Pulse 52 05/31/2024 11:31 AM EDT Temperature 36.7 C (98 F) 05/31/2024 11:31 AM EDT Respiratory Rate 14 06/25/2021 1:14 PM EST Oxygen Saturation 97% 05/31/2024 11:31 AM EDT Inhaled Oxygen Concentration - - Weight 70.1 kg (154 lb 9.6 oz) 05/31/2024 11:31 AM EDT Height 162.6 cm (5' 4.02 ) 05/31/2024 11:31 AM E DT Body Mass Index 26.52 05/31/2024 11:31 AM EDT Plan of Treatment Upcoming Encounters Date Type Department Care Team (Late st Contact Info) Description 08/29/2025 11:30 AM EST Office Visit [facility] Pulmonary/Sleep Medicine [address] [place] [address] Evangelina Mata MD [address] [facility] [address] [place] [address] Health Maintenance Due Date Last Done Comments Depression Screening 1962 Adult BMI Follow Up Plan 1970 DTaP,Tdap and Td Vaccines (1 - Tdap) 12/17/1971 Fall Risk Screening 2017 COVID-19 Vaccine (2023-2 5 season) 2024 08/06/2021, 11/21/2020, 10/30/2020 Influenza Vaccine 04/04/2025 05/10/2024, , 08/29/2022, Additional history exists Adult BMI Screening 05/31/2025 05/31/2024 Tobacco Screening 08/06/2025 08/06/2024 Zoster (Shingles) Vaccine Completed 07/18/2019, Medical Devices Not on file Insurance [facility] [address] [address] [employer]IC[employer] ADVANTAGE Care Teams Continuity Tester Relationship Specialty Start Date End Date Annika Mckeon MD PCP - General Family Medicine 12/24/22
--- OUTSIDE RECORDS SUMMARY | 2025-02-10 13:44 | XMS_ITS | Encounter Summary ---
Author Organization [facility] Address [address] [place] [address] Care Team Providers Care Surgical Instruments Inspector Name Role Phone Annika Mckeon MD Primary Care Provider [phone] Pippa Rouse TABLE ATTENDANT Unavailable [phone] Annika Mckeon MD Unavailable Ghislaine Lawson RN Unavailable [phone] Annika Mckeon MD Unavailable Annika Mckeon MD Unavailable Reason for Visit * Reason Comments Med Refill Encounter Details Date Type Department Care Team (Late st Contact Info) Description 03/28/2024 Refill [facility] [address] [place] [address] Annika Mckeon MD [address] [place] [address] Factor 5 Leiden mutation, heterozygous ([facility]) 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 Tobacco Use Types Packs/Day Years [...] How often do you attend chur or anabaptism services? More than 4 times per year 07/15/2023 Do you belong to any clubs o r organizations such as mormon groups, unions, fraternal or athletic groups, or [...] Recorded Patient Health Questionnaire-2 Score 4 09/09/2023 [facility] [place] of Occupat ional Health - Occupational Stress [...] place to sleep or slept in a nursing home (including now)? No 07/15/2023 Comments No Sex and Gender Information Value Date Recorded Sex Assigned at Not on file Legal Sex Female 7:17 PM EDT Gender Identity Female 10/16/2022 7:17 PM EDT Sexual Orientation Asexual 06/29/2023 11 :24 PM EST Occupation Industry Job Start Date Job End Date retired Not on file Not on file Not on file documented as of this encounter Miscellaneous Notes * Telephone Encounter - Annika Mckeon MD - 03/29/2024 10:19 AM EDT Approving, but needs appt for additional refills. documented in this encounter Plan of Treatment Upcoming Encounters Date Type Department Care Team (Late st Contact Info) Description 02/21/2025 10:00 AM EDT Social Work [facility] [address] [place] [address] Sadaf Gutierrez S, ELECTRONICS PRODUCTION SUPERVISOR-S [address] [facility] [place] [address] 02/22/2025 10:50 AM EDT Office Visit [facility] [address] [place] [address] Tyrese Swanson MD [address] [place] [address] 03/28/2025 12:20 PM EDT Office Visit [facility] [address] [place] [phone] Annika Mckeon MD [address] [facility] [place] [address] documented as of this encounter Visit Diagnoses Diagnosis Factor 5 Leiden mutation, heterozygous ([facility]) documented in this encounter Additional Health Concerns Assessment Noted Time PHQ-9 Depression Total Score: 8 09/09/19 24 2:00 PM EST documented as of this encounter Care Teams Surgical Instruments Inspector Relationship Specialty Start Date End Date Annika Mckeon MD [address] [facility] [place] [address] PCP - General Family Medicine 12/27/22 Annika Mckeon MD [address] [facility] [place] [address] PCP - ACO Reach 10/03/23 09/09/24 Annika Mckeon MD [address] [facility] [place] [address] PCP - Devoted 08/04/24 Annika Mckeon MD [address] [facility] [place] [address] PCP - ACO Reach 09/17/24 11/04/24 Pippa Rouse NP [address] [place] [address] Nurse Practitioner Family Medicine 12/27/22 Ghislaine Lawson RN [address] [place], [place] [address] Registered Nurse Family Medicine 12/09/23 documented as of this encounter
--- OUTSIDE RECORDS SUMMARY | 2025-02-10 13:44 | XMS_ITS | Encounter Summary ---
Author Organization [facility] Address [address] [facility] [place] [place] [address] Care Team Providers Care Bilingual Sales Consultant Name Role Phone Annika Mckeon MD Primary Care Provider [phone] Pippa Rouse SEISMOGRAPH OPERATOR Unavailable [phone] Annika Mckeon MD Unavailable Ghislaine Lawson RN Unavailable [phone] Annika Mckeon MD Unavailable Annika Mckeon MD Unavailable Encounter Details Date Type Department Care Team (Late st Contact Info) Description 10/14/2023 Abstract [facility] [place] [address] [place] [address] Emma Knight MA 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 Tobacco Use Types Packs/Day Years [...] How often do you attend chur or roman catholic services? More than 4 times per year 07/15/2023 Do you belong to any clubs o r organizations such as buddhist groups, unions, fraternal or athletic groups, or [...] [facility] of Occupat ional Health - Occupational Stress [...] place to sleep or slept in a skilled nursing (including now)? No 07/15/2023 Comments Unknown Sex [...] 10:00 AM EDT Social Work [facility] [address] [place] [address] Sadaf Gutierrez LISW-S [address] [place], [place] [phone] 02/22/2025 10:50 AM EDT Office Visit [facility] [address] [place] [address] Tyrese Swanson MD [address] [place] [address] 03/28/2025 12:20 PM EDT Office Visit [facility] [address] [facility] [place] [address] Annika Mckeon MD [address] [place] [address] documented as of this encounter Visit Diagnoses Not on filedocumented in this encounter Additional Health Concerns Assessment Noted Time PHQ-9 Depression Total Score: 8 09/09/19 24 2:00 PM EST documented as of this encounter Care Teams Bilingual Sales Consultant Relationship Specialty Start Date End Date Annika Mckeon MD [address] [facility] [place] [address] PCP - General Family Medicine 12/27/22 Annika Mckeon MD [address] [place] [address] PCP - ACO Reach 10/03/23 09/09/24 Annika Mckeon MD [address] [place] [address] PCP - Devoted 08/04/24 Annika Mckeon MD [address] [place] [address] PCP - ACO Reach 09/17/24 11/04/24 Pippa Rouse NP [address] [place] [address] Nurse Practitioner Family Medicine 12/27/22 Ghislaine Lawson, RN [address] [place] [address] Registered Nurse Family Medicine 12/09/23 documented as of this encounter
--- OUTSIDE RECORDS SUMMARY | 2025-02-10 13:44 | XMS_ITS | Encounter Summary ---
Author Organization [facility] Address [address] [place] [address] Care Team Providers Care Head Of Maintenance Name Role Phone Annika Mckeon MD Primary Care Provider [phone] Pippa Rouse SENIOR SYSTEMS DEVELOPER Unavailable [phone] Ghislaine Lawson RN Unavailable [phone] Annika Mckeon MD Unavailable Encounter Details Date Type Department Care Team (Late st Contact Info) Description 12/14/2024 Results Follow-Up [facility] [address] [facility] [address] [place] [phone] Patricio Sarah MD [address] [facility] [address] [place] [address] 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 Tobacco Use Types Packs/Day Years [...] week 07/15/2023 How often do you attend [facility] or anabaptist services? More than 4 times per year [...] Recorded Patient Health Questionnaire-2 Score 0 09/30/2024 [facility] of Occupat ional Health - Occupational [...] place to sleep or slept in a [place] care facility (including now)? No 07/15/2023 Comments No Sex [...] 10:00 AM EDT Social Work [facility] [address] [place] [address] Sadaf Gutierrez LISW-S [address] [place] [address] 02/22/2025 10:50 AM EDT Office Visit [facility] [address] [place] [address] Tyrese Swanson MD [address] [place] [address] 03/28/2025 12:20 PM EDT Office Visit [facility] [address] [facility] [place] [address] Annika Mckeon MD [address] [facility] [place] [address] documented as of this encounter Visit Diagnoses Not on filedocumented in this encounter Additional Health Concerns Assessment Noted Time PHQ-9 Depression Total Score: 0 09/30/19 3:00 PM EST documented as of this encounter Care Teams Head Of Maintenance Relationship Specialty Start Date End Date Annika Mckeon MD [address] [facility] [place], [place] [address] PCP - General Family Medicine 12/27/22 Annika Mckeon MD [address] [facility] [place] [address] PCP - Devoted 08/04/24 Pippa Rouse NP [address] [facility] [place] [address] Nurse Practitioner Family Medicine 12/27/22 Ghislaine Lawson, RN [address] [facility] [place] [address] Registered Nurse Family Medicine 12/09/23 documented as of this encounter
--- OUTSIDE RECORDS SUMMARY | 2025-02-10 13:44 | XMS_ITS | Encounter Summary ---
Author Organization [facility] Address [address] [place] [address] Care Team Providers Care Medical Examiner Name Role Phone Annika Mckeon MD Primary Care Provider [phone] Pippa Rouse NP Unavailable [phone] Annika Mckeon MD Unavailable Ghislaine Lawson RN Unavailable [phone] Annika Mckeon MD Unavailable Annika Mckeon MD Unavailable Encounter Details Date Type Department Care Team (Late st Contact Info) Description 09/16/2023 External Result Encounter [facility] External Department Unsolicited Neto Burton, DO [address] [place] [address] 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 Tobacco Use Types Packs/Day Years [...] How often do you attend chur or orthodoxy services? More than 4 times per year 07/15/2023 Do you belong to any clubs o r organizations such as restorationist groups, unions, fraternal or athletic groups, or [...] Recorded Patient Health Questionnaire-2 Score 4 09/09/2023 [facility] of Occupat ional Health - Occupational Stress [...] nursing home (including now)? No 07/15/2023 Comments Unknown Sex [...] AM EDT Social Work [facility] [address] [place] [address] Sadaf Gutierrez, JARED-S [address] [place] [address] 02/22/2025 10:50 AM EDT Office Visit [facility] [address] [place] [address] Tyrese Swanson MD [address] [place] [address] 03/28/2025 12:20 PM EDT Office Visit [facility] JEAN [address] [place] [address] Annika Mckeon MD [address] [place] [address] documented as of this encounter Procedures Procedure Name Priority Date/Time Associated Diagnosis Comments ECG 12-LEAD 09/16/2023 11:42 AM EST documented in this encounter Results * ECG 12 lead (09/16/2023 11:42 AM EST) 09/16/2023 11:4 2 AM EST [facility] - 09/17/2023 12:22 PM EST [facility] Main [address] [address] Electrocardiograph Report Signed Patient: Rebecca Herrera MR#: [id number] : 1950 Acct:[id number] Age/Sex: 72 / F ADM Date: 09/16/23 Loc: Room: Type: [facility] Attending Dr: Neto Burton DO Ordering Provider: Neto Burton DO Date of Service: 09/16/23 ECG/ECG 12 lead ECG: PST Copies to: Test Reason : Blood Pressure : / mmHG Vent. Rate : 049 BPM Atrial Rate : 049 BPM P-R Int : 174 ms QRS Dur : 140 ms QT Int : 506 ms P-R-T Axes : 080 066 042 degrees QTc Int : 457 ms Marked sinus bradycardia Right bundle branch block Abnormal ECG Confirmed by Mario Morse ([id number]) on 09/17/2023 12:22:17 PM Referred By: KORTNEY Electronically Signed By:Mario Morse Transcribed By: MUS Signed By Mario Morse MD 09/17/23 1222 Procedure Note Lazaro Morse MD - 09/18/2023 [facility] Main [place] [address] [place] [address] Electrocardiograph Report Signed Patient: Rebecca Herrera LMR#: [id number] : 3Acct:[id number] Age/Sex: 72 / FADM Date: 09/16/23 Loc: Room:Type: [facility] Attending Dr: Neto Burton DO Ordering Provider: Neto Burton DO Date of Service: 09/16/23 ECG/ECG 12 lead ECG: PST Copies to: Test Reason : Blood Pressure : / mmHG Vent. Rate : 049 BPM Atrial Rate : 049 BPM P-R Int : 174 ms QRS Dur : 140 ms QT Int : 506 ms P-R-T Axes : 080 066 042 degrees QTc Int : 457 ms Marked sinus bradycardia Right bundle branch block Abnormal ECG Confirmed by Mario Morse ([id number]) on 09/17/2023 12:22:17 PM Referred By: KORTNEY Electronically Signed By:Mario Morse Transcribed By: MUS Signed By Mario Morse MD 09/17/23 1222 us Neto Burton DO ECG ORDERABLES Final Resul t Performing Organization Address City/State/[facility] Co de Phone Number [address] [address], documented in this encounter Visit Diagnoses Not on filedocumented in this encounter Additional Health Concerns Assessment Noted Time PHQ-9 Depression Total Score: 8 09/09/19 24 2:00 PM EST documented as of this encounter Care Teams Medical Examiner Relationship Specialty Start Date End Date Annika Mckeon MD [address] [place] [address] PCP - General Family Medicine 12/27/22 Annika Mckeon MD [address] [place] [address] PCP - ACO Reach 10/03/23 09/09/24 Annika Mckeon MD [address] [facility] [place] [address] PCP - Devoted 08/04/24 Annika Mckeon MD [address] [facility] [place] [address] PCP - ACO Reach 09/17/24 11/04/24 Pippa Rouse NP [facility] [facility] [place] [address] Nurse Practitioner Family Medicine 12/27/22 Ghislaine Lawson, RN [address] [place] [address] Registered Nurse Family Medicine 12/09/23 documented as of this encounter
--- OUTSIDE RECORDS SUMMARY | 2025-02-10 13:44 | XMS_ITS | Patient Health Record ---
Author Organization [facility] [place] Address [address] [place] [address] Care Team Providers Care Bank Teller Machine Mechanic Name Role Phone Irma Dupont Primary Care Provider [phone] Reason For Referral No Information Medications Medication SIG (Take, Route, Fr equency, Duration) Notes Start Date End Date Status [place] 5-325 MG 1 tablet Orally BID prn for 30 days 11/05/2018 Active Warfarin Sodium Acti ve Paxil 20 MG 1 tablet in the morn ing Orally Once a day for 90 days 11/05/2018 Active [place] Active Multivitamin Active Tylenol Active Paxil Active 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 Tobacco Use: 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 Observation Description Date Details (start date - stop date) Never Smoker NA - NA Tobacco Use/Smoking Question Answer Notes Patient is a nonsmoker Problems Problem Type SNOMED Code ICD Code Onset Dates Problem Status W/U Status Risk Notes Problem 502674321 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 Problem 197646550 Macular pucker, left eye (H35.372) Active confirmed NO SURGICAL INTERVENTION NEEDED. Problem 56513038 Anxiety with depression (F41.8) Active confirmed Plan Of Treatment No Information Insurance Providers Payer Name Payer Address Payer Phone Subscriber Number Group Number Insured Name Patient Relationship to Insured Coverage Start Date Coverage End Date [employer] [facility] [address] [place] [address] [id number] Rebecca Nugent Self - patient is the insured
--- OUTSIDE RECORDS SUMMARY | 2025-02-10 13:44 | XMS_ITS ---
Author Organization [facility] Address [address] [place] [address] Care Team Providers Care Alarm Field Technician Name Role Phone Annika Mckeon MD Primary Care Provider [phone] Pippa Rouse NP Unavailable [phone] Ghislaine Lawson RN Unavailable [phone] Annika Mckeon MD Unavailable Chronic Care Management (CCM) Status:Enrolled (Active) Start date:12/09/2023 Enrollment date:12/09/2023 Enrollment reason:Identified as high ER utilizer Overview Please assess for Care Management needs. 12/09/23, 3:54 PM - Ghislaine Lawson RN- Patient gives verbal consent to be enrolled in CCM Program and understands there could be a bill for this service. Case Team Name Relationship Phone Ghislaine Lawson RN(Responsible Staff) Registered Nurse [phone] Continued Care and Services Coordination
[2025-02-10 14:38] LABS: Albumin Level 3.4 g/dL (3.4-5.0); Anion Gap 12.1; Blood Urea Nitrogen 9.0 mg/dL (7.0-18.0); Calcium 8.5 mg/dL (8.5-10.1); Carbon Dioxide 28.5 mmol/L (21.0-32.0); Chloride 109 mmol/L (98-107); Estimated GFR (African America >60 (>=60 mL/min/1.73m^2); Estimated GFR (Non-African Ame >60 (>=60 mL/min/1.73m^2); Glucose 85 mg/dL (74-106); Magnesium 2.1 mg/dL (1.8-2.4); Potassium 3.6 mmol/L (3.5-5.1); Sodium 146 mmol/L (136-145)
== END 2025-02-10 13:38 | disposition home or self-care (01) ==
LOC: LAB 13:40
PROVIDERS: PCP Family Medicine; Visit Provider Internal Medicine
DX: E21.2 Other hyperparathyroidism (principal); Z98.84 Bariatric surgery status; N20.0 Calculus of kidney
CPT/HCPCS: 36415; 80069; 82306; 83735; 83970

== ENCOUNTER 2025-02-12 10:26 | Outpatient (REF) | payer OTHER, SELFPAY ==
--- OUTSIDE RECORDS SUMMARY | 2019-10-20 09:00 | XMS_ITS | Continuity of Care Document ---
Author Organization [employer] [facility] Address [address] [place] [address] Phone Care Team Providers Care Regional Branch Manager Name Role Phone Bijan Figueroa MD Unavailable Unavailable Procedures Procedure Date OFFICE/OUTPATIENT VISIT, [facility] Advance Directives Directive Yes / No Effective Date File Name No Information Encounters Encounter Description Practice Location Reason(s) For Visit Diagnoses Date Provider Providers Copied on Encounter OFFICE/OUTPATI ENT VISIT, [facility], [address], [place], [place], [id number], [place] tel:[phone] [facility] No Information Henry Thakkar. [address], [place], [id number], [place]. tel:[phone] Referring Provider: Bijan Worthington, [address], [place], [address]. tel:[phone] Family History Family Member Type Diagnosis Age At Onset No Information Payers Payer name Insurance type Covered constitution party ID Authoriza tion(s) Medicare MB [id number] [facility] [place] Medicare Supplemental [place] [id number] 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 Type Description Quantity Date Captured [...]
--- OUTSIDE RECORDS SUMMARY | 2025-02-12 10:28 | XMS_ITS | Encounter Summary ---
Author Organization [facility] Address [address] [place] [address] Care Team Providers Care Siding Applicator Name Role Phone Annika Mckeon MD Primary Care Provider [phone] Pippa Rouse CIRCUS RIDER Unavailable [phone] Annika Mckeon MD Unavailable Ghislaine Lawson RN Unavailable [phone] Annika Mckeon MD Unavailable Annika Mckeon MD Unavailable Encounter Details Date Type Department Care Team (Late st Contact Info) Description 04/22/2023 Abstract [facility] [address] [place] [address] Annika Mckeon MD [address] [place] [address] 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 Tobacco Use Types [...] Social Work [facility] [address] [place] [address] Sadaf Gutierrez LISW-S [address] [place] [address] 02/22/2025 10:50 AM EDT Office Visit [facility] [address] [place] [address] Tyrese Swanson MD [address] [place] [address] 03/28/2025 12:20 PM EDT Office Visit [facility] [address] [facility] [place] [address] Annika Mckeon MD [address] [facility] [place] [address] documented as of this encounter Visit Diagnoses Not on filedocumented in this encounter Care Teams Siding Applicator Relationship Specialty Start Date End Date Annika Mckeon MD [address] [facility] [place] [address] PCP - General Family Medicine 12/27/22 Annika Mckeon MD [address] [facility] [place] [address] PCP - ACO Reach 10/03/23 09/09/24 Annika Mckeon MD [address] [facility] [place] [address] PCP - Devoted 08/04/24 Annika Mckeon MD [address] [facility] [place] [address] PCP - ACO Reach 09/17/24 11/04/24 Pippa Rouse NP [address] [place] [address] Nurse Practitioner Family Medicine 12/27/22 Ghislaine Lawson RN [address] [place] [facility] [place] [address] Registered Nurse Family Medicine 12/09/23 documented as of this encounter
--- OUTSIDE RECORDS SUMMARY | 2025-02-12 10:29 | XMS_ITS | Encounter Summary ---
Author Organization [facility] Address [address] [place] [address] Care Team Providers Care Residence Director Name Role Phone Annika Mckeon MD Primary Care Provider [phone] Pippa Rouse SMOKE INSPECTOR Unavailable [phone] Ghislaine Lawson RN Unavailable [phone] Annika Mckeon MD Unavailable Encounter Details Date Type Department Care Team (Late st Contact Info) Description 12/14/2024 Results Follow-Up [facility] [address] [facility] [address] [place] [address] Patricio Sarah MD [address] [facility] [address] [place] [address] 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 Tobacco Use Types Packs/Day Years [...] week 07/15/2023 How often do you attend [facility] or congregational services? More than 4 times per year 07/15/2023 Do you belong to any clubs o r organizations such as adventism groups, unions, fraternal or athletic groups, or [...] Recorded Patient Health Questionnaire-2 Score 0 09/30/2024 [facility] ional [facility] - Occupational Stress [...] place to sleep or slept in a correction (including now)? No 07/15/2023 Comments No Sex [...] 10:00 AM EDT Social Work [facility] [address] [place] [address] Sadaf Gutierrez LISW-S 14[address] [place] [address] 02/22/2025 10:50 AM EDT Office Visit [facility] [address] [place] [address] Tyrese Swanson MD [address] [place] [address] 03/28/2025 12:20 PM EDT Office Visit [facility] [address] [facility] [place] [address] Annika Mckeon MD [address] [facility] [place] [address] documented as of this encounter Visit Diagnoses Not on filedocumented in this encounter Additional Health Concerns Assessment Noted Time PHQ-9 Depression Total Score: 0 09/30/19 3:00 PM EST documented as of this encounter Care Teams Residence Director Relationship Specialty Start Date End Date Annika Mckeon MD [address] [facility] [place], [place] [address] PCP - General Family Medicine 12/27/22 Annika Mckeon MD [address] [facility] [place] [address] PCP - Devoted 08/04/24 Pippa Rouse NP [address] [facility] [place] [address] Nurse Practitioner Family Medicine 12/27/22 Ghislaine Lawson, RN [address] [place] [address] Registered Nurse Family Medicine 12/09/23 documented as of this encounter
--- OUTSIDE RECORDS SUMMARY | 2025-02-12 10:29 | XMS_ITS | Encounter Summary ---
Author Organization [facility] Address [address] [place] [address] Phone Care Team Providers Care Tutoring Manager Name Role Phone Annika Mckeon MD Primary Care Provider [phone] Encounter Details Date Type Department Care Team (Late st Contact Info) Description 09/23/2023 Scanned Document [facility] [address] [place] [address] Scanning, Generic Provider 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 Tobacco Use [...] Description 05/31/2025 1:40 PM EDT Office Visit [facility] [address] [address] Ran Rodriguez MD [address] [facility] [address], Ran[address] [place] [address] documented as of this encounter Procedures Procedure Name Priority Date/Time Associated Diagnosis Comments ECHOCARDIOGRAM 09/23/2023 documented in this encounter Results * ECHOCARDIOGRAM (09/23/2023) Narrative 09/23/2023 Ordered by an unspecified provider. us Generic Provider Scanning CV ECHO PROCEDURES Fin al Result documented in this encounter Visit Diagnoses Not on filedocumented in this encounter Care Teams Tutoring Manager Relationship Specialty Start Date End Date Annika Mckeon MD [address] [place] [address] PCP - General Family Medicine 02/12/24 documented as of this encounter
--- OUTSIDE RECORDS SUMMARY | 2025-02-12 10:29 | XMS_ITS | Encounter Summary ---
Author Organization [facility] Address [address] [place] [address] Care Team Providers Care Senior Controls Analyst Name Role Phone Annika Mckeon MD Primary Care Provider [phone] Pippa Rouse PAPER WRAPPING MACHINE OPERATOR Unavailable [phone] Annika Mckeon MD Unavailable Ghislaine Lawson RN Unavailable [phone] Annika Mckeon MD Unavailable Annika Mckeon MD Unavailable Encounter Details Date Type Department Care Team (Late st Contact Info) Description 04/03/2023 Abstract [facility] [address] [place] [address] Thomas Davis DPM [address] [place], [place] [phone] 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 Tobacco Use Types Packs/Day Years [...] AM EDT Social Work [facility] [address] [facility] [place] [address] Sadaf Gutierrez LISW-S 14[address] [place] [address] 02/22/2025 10:50 AM EDT Office Visit [facility] [address] [place] [address] Tyrese Swanson MD [address] [place] [address] 03/28/2025 12:20 PM EDT Office Visit [facility] 14[address] [place] [address] [phone] Annika Mckeon MD [address] [facility] [place] [address] documented as of this encounter Visit Diagnoses Not on filedocumented in this encounter Care Teams Senior Controls Analyst Relationship Specialty Start Date End Date Annika Mckeon MD [address] [facility] [place] [address] PCP - General Family Medicine 12/27/22 Annika Mckeon MD [address] [facility] [place] [address] PCP - ACO Reach 10/03/23 09/09/24 Annika Mckeon MD 14[address] [facility] [place] [address] PCP - Devoted 08/04/24 Annika Mckeon MD 1479 [place] [address] PCP - ACO Reach 09/17/24 11/04/24 Pippa Rouse NP [address] [place], [place] [address] Nurse Practitioner Family Medicine 12/27/22 Ghislaine Lawson, NIKOS [address] [facility] [place] [address] Registered Nurse Family Medicine 12/09/23 documented as of this encounter
--- OUTSIDE RECORDS SUMMARY | 2025-02-12 10:29 | XMS_ITS | Clinical Summary ---
Author Organization [facility] Address [address] [place] [address] Phone Care Team Providers Care Investigative Analyst Name Role Phone Annika Mckeon MD Primary Care Provider [phone] Allergies No known active allergies Medications warfarin [...] 3). Active ergocalciferol (Vitamin D2) 1.25 MG (04508 UT) capsule Take 1 capsule (1,250 mcg) [...] EDT Office Visit [facility] [address] [address] Ran Rodriguez MD 703 [facility] 2, [address] [address] Health Maintenance Due Date Last [...] patient's age to complete this topic Insurance [employer] Care Teams Investigative Analyst Relationship Specialty Start Date End Date Annika Mckeon MD [address] [place] [address] PCP - General Family Medicine 02/12/24
--- OUTSIDE RECORDS SUMMARY | 2025-02-12 10:29 | XMS_ITS | Encounter Summary ---
Author Organization [facility] Address [address] [place] [address] Care Team Providers Care Manager Fleet Name Role Phone Annika Maria MD Primary Care Provider [phone] Pippa Rouse NP Unavailable [phone] Annika Maria MD Unavailable Ghislaine Lawson RN Unavailable [phone] Annika Maria MD Unavailable Annika Maria [...] often do you attend chur ch or anabaptism services? More than 4 times per year 07/15/2023 Do you belong to any clubs o r organizations such as jehovah's witness groups, unions, fraternal or athletic groups, or [...] Recorded Patient Health Questionnaire-2 Score 4 09/09/2023 [facility] of Occupat ional Health - [...] a alf (including now)? No 07/15/2023 Comments No Sex [...] AM EDT Social Work [facility] [address] [place] [address] Sadaf Gutierrez LISW-S [address] [place], [place] [address] 02/22/2025 10:50 AM EDT Office Visit [facility] [address] [place] [address] Tyrese Swanson MD [address] [place] [address] 03/28/2025 12:20 PM EDT Office Visit [facility] [place]AN [address] [place] [address] Annika Maria MD [address] [place], [place] [address] documented as of this encounter Procedures Procedure Name Priority Date/Time Associated Diagnosis Comments XR ABDOMEN 1V 12/15/2023 9:13 AM EDT documented in this encounter Results * XR ABDOMEN 1V (12/15/2023 9:13 AM EDT) Anatomical Region Laterality Modality Other 12/15/2023 9:13 AM EDT Narrative 12/15/2023 9:15 AM EDT [address] [address] XRay Report Signed Patient: TRENT ANDERS MR#: [id number] : 1950 Acct:[id number] Age/Sex: 72 / F ADM Date: 12/15/23 Loc: RAD Attending Dr: Jasper Almonte M.D. Ordering Physician: Jasper Almonte M.D. Date of Service: 12/15/23 Procedure(s): XR abdomen 1V Accession Number(s): [id number] cc: ANNIKA MARIA ; Jasper Almonte M.D. [address] [address] Patient Name: TRENT ANDERS MRN: [id number] date: 1950 Sex: F Assigned Patient Location: [facility] Current Patient Location: RAD Accession/Order Number: [id number] Exam Date: 12/15/2023 08:34 Report Date: 12/15/2023 [...] M.D. Signed By: 12/15/23914 DD/ 2 TD/TT: Nascar Driver: Procedure Note Radiology, Radiologist, MD - 12/15/2023 [place] [address] XRay Report Signed Patient: TRENT ANDERSMR#: [id number] : 1950cct:[id number] Age/Sex: 72 / FADM Date: 12/15/23 Loc: [facility] Attending Dr: Jasper Almonte M.D. Ordering Physician: Jasper Almonte M.D. Date of Service: 12/15/23 Procedure(s): XR abdomen 1V Accession Number(s): [id number] cc: ANNIKA MARIA ; Jasper Almonte M.D. The [place] [address] Patient Name: TRENT ANDERS MRN: [id number] date: 1950 Sex: F Assigned Patient Location: [facility] Current Patient Location: [facility] Accession/Order Number: [id number] Exam Date: 12/15/2023 08:34 Report Date: 12/15/2023 [...] Becker M.D. Signed By:12/15/23914 DD/ 2 TD/TT: Nascar Driver: us Generic External Data Provider [facility] Final Result documented in this encounter Visit Diagnoses Not on filedocumented in this encounter Additional Health Concerns Assessment Noted Time PHQ-9 Depression Total Score: 8 09/09/19 24 2:00 PM EST documented as of this encounter Care Teams Manager Fleet Relationship Specialty Start Date End Date Annika Maria MD [address] [facility] [place] [address] PCP - General Family Medicine 12/27/22 Annika Maria MD [address] [facility] [place] [address] PCP - ACO Reach 10/03/23 09/09/24 Annika Maria MD [address] [place] [address] PCP - Devoted 08/04/24 Annika Maria MD [address] [facility] [place] [address] PCP - ACO Reach 09/17/24 11/04/24 Pippa Rouse NP [address] [place] [address] Nurse Practitioner Family Medicine 12/27/22 Ghislaine Lawson, RN 14[address] [place] [address] Registered Nurse Family Medicine 12/09/23 documented as of this encounter
--- OUTSIDE RECORDS SUMMARY | 2025-02-12 10:29 | XMS_ITS | Encounter Summary ---
Author Organization [facility] Address [address] [place] [address] Phone Care Team Providers Care Wardrobe Technician Name Role Phone Annika Mckeon MD Primary Care Provider [phone] Encounter Details Date Type Department Care Team (Late st Contact Info) Description 11/28/2023 Scanned Document [facility] [address] [place] [address] Scanning, Generic Provider 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 Tobacco Use [...] Description 05/31/2025 1:40 PM EDT Office Visit [facility] [address] [address] Ran Rodriguez MD [address] [facility] [address], Ranjeet [address] [place] [address] documented as of this encounter Procedures Procedure Name Priority Date/Time Associated Diagnosis Comments OUTSIDE IMAGING SCAN 11/28/2023 documented in this encounter Results * OUTSIDE IMAGING SCAN (11/28/2023) Anatomical Region Laterality Modality Other Narrative 11/28/2023 Ordered by an unspecified provider. us Generic Provider Scanning OUTSIDE SCAN Final Result documented in this encounter Visit Diagnoses Not on filedocumented in this encounter Care Teams Wardrobe Technician Relationship Specialty Start Date End Date Annika Mckeon MD [address] [place] [address] PCP - General Family Medicine 02/12/24 documented as of this encounter
--- OUTSIDE RECORDS SUMMARY | 2025-02-12 10:29 | XMS_ITS | Encounter Summary ---
Author Organization [facility] Address [address] [place] [address] Care Team Providers Care Office Receptionist Name Role Phone Annika Maria MD Primary Care Provider [phone] Pippa Rouse NP Unavailable [phone] Annika Maria MD Unavailable Ghislaine Lawson RN Unavailable [phone] Annika Maria MD Unavailable Annika Maria [...] often do you attend chur ch or yazidism services? More than 4 times per year 07/15/2023 Do you belong to any clubs o r organizations such as holiness groups, unions, fraternal or athletic groups, or [...] Recorded Patient Health Questionnaire-2 Score 4 09/09/2023 [facility] of Occupat ional Health - [...] AM EDT Social Work [facility] [address] [place] [address] Sadaf Gutierrez LISW-S [address] [place], [place] [address] 02/22/2025 10:50 AM EDT Office Visit [facility] [address] [place] [address] Tyrese Swanson MD [address] [place] [address] 03/28/2025 12:20 PM EDT Office Visit [facility] [place]DA [address] [place] [address] Annika Maria MD [address] [place], [place] [address] documented as of this encounter Procedures Procedure Name Priority Date/Time Associated Diagnosis Comments XR IVP 01/01/2024 10:09 AM EDT documented in this encounter Results * XR IVP (01/01/2024 10:09 AM EDT) Anatomical Region Laterality Modality Radiographic Delphine ging 01/01/2024 10:0 9 AM EDT Narrative 01/01/2024 10:11 AM EDT [address] [address] XRay Report Signed Patient: TRENT ANDERS MR#: [id number] : 1950 Acct:[id number] Age/Sex: 73 / F ADM Date: 01/01/24 Loc: [place] Attending Dr: Jasper Almonte M.D. Ordering Physician: Jasper Almonte M.D. Date of Service: 01/01/24 Procedure(s): XR IVP w KUB Accession Number(s): [id number] cc: ANNIKA MARIA ; Jasper Almonte M.D. The [address] [address] Patient Name: TRENT ANDERS MRN: [id number] date: 1950 Sex: F Assigned Patient Location: [place] Current Patient Location: [place] Accession/Order Number: [id number] Exam Date: 01/01/2024 08:49 Report Date: 01/01/2024 10:09 At the request of: JASPER ALMONTE Procedure: XR IVP w KUB EXAMINATION: XR IVP w KUB HISTORY: Kidney Stone N20.0 COMPARISON: No relevant comparison available. TECHNIQUE: After obtaining patient consent a income tax investigator image was obtained followed by injection of [...] Signed By: 01/01/24 1011 DD/ 1009 TD/TT: Shoe Fitter: Procedure Note Radiology, Radiologist, MD - 01/01/2024 [place] [address] XRay Report Signed Patient: TRENT ANDERSMR#: [id number] : 1950cct:[id number] Age/Sex: 73 / FADM Date: 01/01/24 Loc: [place] Attending Dr: Jasper Almonte M.D. Ordering Physician: Jasper Almonte M.D. Date of Service: 01/01/24 Procedure(s): XR IVP w KUB Accession Number(s): [id number] cc: ANNIKA MARIA ; Jasper Almonte M.D. The [address] [address] Patient Name: TRENT ANDERS MRN: [id number] date: 1950 Sex: F Assigned Patient Location: [place] Current Patient Location: [place] Accession/Order Number: [id number] Exam Date: 01/01/2024 08:49 Report Date: 01/01/2024 10:09 At the request of: JASPER ALMONTE Procedure: XR IVP w KUB EXAMINATION: XR IVP w KUB HISTORY: Kidney Stone N20.0 COMPARISON: No relevant comparison available. TECHNIQUE: After obtaining patient consent a income tax investigator image was obtainedfollowed by injection of 100cc [...] M.D. Signed By:01/01/24 1011 DD/ 1009 TD/TT: Shoe Fitter: Generic External Data Provider IMG XR PROCEDURES Final Result documented in this encounter Visit Diagnoses Not on filedocumented in this encounter Additional Health Concerns Assessment Noted Time PHQ-9 Depression Total Score: 8 09/09/19 24 2:00 PM EST documented as of this encounter Care Teams Office Receptionist Relationship Specialty Start Date End Date Annika Maria MD [address] [place] [address] PCP - General Family Medicine 12/27/22 Annika Maria MD 14[address] [facility] [place] [address] PCP - ACO Reach 10/03/23 09/09/24 Annika Maria MD [address] [place], [place] [address] PCP - Devoted 08/04/24 Annika Maria MD 14[address] [facility] [place] [address] PCP - ACO Reach 09/17/24 11/04/24 Pippa Rouse NP [address] [facility] [place] [address] Nurse Practitioner Family Medicine 12/27/22 Ghislaine Lawson, RN [address] [place] [address] Registered Nurse Family Medicine 12/09/23 documented as of this encounter
--- OUTSIDE RECORDS SUMMARY | 2025-02-12 10:29 | XMS_ITS | Encounter Summary ---
Author Organization [facility] Address [address] [place] [address] Care Team Providers Care Meat Boner And Slicer Name Role Phone Annika Mckeon MD Primary Care Provider [phone] Pippa Rouse SHELLAC POLISHER Unavailable [phone] Annika Mckeon MD Unavailable Ghislaine Lawson RN Unavailable [phone] Annika Mckeon MD Unavailable Annika Mckeon MD Unavailable Reason for Visit * Reason Comments Med Refill Encounter Details Date Type Department Care Team (Late st Contact Info) Description 04/04/2023 Refill [facility] [address] [place] [address] Annika Mckeon MD [address] [place], [place] [address] Factor 5 Leiden mutation, heterozygous ([facility]-HCC) (Primary [...] Miscellaneous Notes * Telephone Encounter - Annika Mkceon MD - 04/04/2023 1:47 PM EDT Approvals with refills documented in this encounter Plan of Treatment Upcoming Encounters Date Type Department Care Team (Late st Contact Info) Description 02/21/2025 10:00 AM EDT Social Work [facility] 1479 [facility] [address] Sadaf Gutierrez LISW-S [address] [place] [address] 02/22/2025 10:50 AM EDT Office Visit [facility] [address] [place] [address] Tyrese Swanson MD [address] [place] [address] 03/28/2025 12:20 PM EDT Office Visit [facility] 14[address] [place] [address] Annika Mckeon MD 14[address] [place] [address] documented as of this encounter Visit Diagnoses Diagnosis Factor 5 Leiden mutation, heterozygous ([facility]-HCC)- Primary documented in this encounter Care Teams Meat Boner And Slicer Relationship Specialty Start Date End Date Annika Mckeon MD [address] [place] [address] PCP - General Family Medicine 12/27/22 Annika Mckeon MD [address] [place] [address] PCP - ACO Reach 10/03/23 09/09/24 Annika Mckeon MD [address] [facility] [place] [address] PCP - Devoted 08/04/24 Annika Mckeon MD [address] [place] [address] PCP - ACO Reach 09/17/24 11/04/24 Pippa Rouse NP 1479 [facility] [place] [address] Nurse Practitioner Family Medicine 12/27/22 Ghislaine Lawson, RN [address] [place] [address] Registered Nurse Family Medicine 12/09/23 documented as of this encounter
--- OUTSIDE RECORDS SUMMARY | 2025-02-12 10:29 | XMS_ITS | Encounter Summary ---
Author Organization [facility] Address [address] [place] [address] Care Team Providers Care Dough Mixing Machine Operator Name Role Phone Annika Mckeon MD Primary Care Provider [phone] Pippa Rouse GEOMORPHOLOGY TEACHER Unavailable [phone] Annika Mckeon MD Unavailable Ghislaine Lawson RN Unavailable [phone] Annika Mckeon MD Unavailable Annika Mckeon MD Unavailable Reason for Visit * Reason Comments Med Refill Encounter Details Date Type Department Care Team (Late st Contact Info) Description 03/28/2024 Refill [facility] [address] [place] [address] Annika Mckeon MD [address] [place] [address] Factor 5 Leiden mutation, heterozygous ([facility]-HCC) 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 Tobacco Use Types Packs/Day Years [...] How often do you attend chur or taoism services? More than 4 times per year 07/15/2023 Do you belong to any clubs o r organizations such as restoration groups, unions, fraternal or athletic groups, or [...] Recorded Patient Health Questionnaire-2 Score 4 09/09/2023 [facility] of Occupat ional Health - Occupational Stress [...] place to sleep or slept in a mcc (including now)? No 07/15/2023 Comments No Sex [...] AM EDT Social Work [facility] [address] [facility] [place] [address] Sadaf Gutierrez S, SUPERVISOR MOLD YARD-S 14[address] [place] [address] 02/22/2025 10:50 AM EDT Office Visit [facility] [address] [place] [address] Tyrese Swanson MD [address] [place] [address] 03/28/2025 12:20 PM EDT Office Visit [facility] [address] [place] [address] Annika Mckeon MD 1479 [facility] [place] [address] documented as of this encounter Visit Diagnoses Diagnosis Factor 5 Leiden mutation, heterozygous ([facility]-HCC) documented in this encounter Additional Health Concerns Assessment Noted Time PHQ-9 Depression Total Score: 8 09/09/19 24 2:00 PM EST documented as of this encounter Care Teams Dough Mixing Machine Operator Relationship Specialty Start Date End Date Annika Mckeon MD [address] [place] [address] PCP - General Family Medicine 12/27/22 Annika Mckeon MD 1479 [facility] [place] [address] PCP - ACO Reach 10/03/23 09/09/24 Annika Mckeon MD 14[address] [facility] [place] [address] PCP - Devoted 08/04/24 Annika Mckeon MD 14[address] [facility] [place] [address] PCP - ACO Reach 09/17/24 11/04/24 Pippa Rouse NP [address] [place] [address] Nurse Practitioner Family Medicine 12/27/22 Ghislaine Lawson RN [address] [place], [place] [address] Registered Nurse Family Medicine 12/09/23 documented as of this encounter
--- OUTSIDE RECORDS SUMMARY | 2025-02-12 10:29 | XMS_ITS | Encounter Summary ---
Author Organization [facility] Address [address] [place] [address] Phone Care Team Providers Care Electrical Logger Name Role Phone Annika Mckeon MD Primary Care Provider [phone] Encounter Details Date Type Department Care Team (Late st Contact Info) Description 12/02/2023 Scanned Document [facility] [address] [place] [address] Scanning, Generic Provider 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 Tobacco Use [...] Description 05/31/2025 1:40 PM EDT Office Visit [facility] 703 [facility] [address] [place] [address] Ran Rodriguez MD [address]03 [facility] [address], [address] [place] [address] documented as of this encounter Visit Diagnoses Not on filedocumented in this encounter Care Teams Electrical Logger Relationship Specialty Start Date End Date Annika Mckeon MD [address] [place], [place] [address] PCP - General Family Medicine 02/12/24 documented as of this encounter
--- OUTSIDE RECORDS SUMMARY | 2025-02-12 10:29 | XMS_ITS | Encounter Summary ---
Author Organization [facility] Address [address] [place] [address] Phone Care Team Providers Care Maxillofacial Prosthetics Dentist Name Role Phone Annika Mckeon MD Primary Care Provider [phone] Encounter Details Date Type Department Care Team (Late st Contact Info) Description 12/01/2023 Scanned Document [facility] [address] [place] [id number] Scanning, Generic Provider 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 Tobacco Use [...] Description 05/31/2025 1:40 PM EDT Office Visit [facility] [address] [facility] [address] [place] [address] Ran Rodriguez MD [address] [facility] [address] [place] [address] documented as of this encounter Visit Diagnoses Not on filedocumented in this encounter Care Teams Maxillofacial Prosthetics Dentist Relationship Specialty Start Date End Date Annika Mckeon MD [address] [place], [place] [id number] PCP - General Family Medicine 02/12/24 documented as of this encounter
--- OUTSIDE RECORDS SUMMARY | 2025-02-12 10:29 | XMS_ITS | Encounter Summary ---
Author Organization [facility] Address [address] [place] [address] Care Team Providers Care Field Nurse Name Role Phone Annika Mckeon MD Primary Care Provider [phone] Pippa Rouse AGRICULTURAL ECONOMIST Unavailable [phone] Annika Mckeon MD Unavailable Ghislaine Lawson RN Unavailable [phone] Annika Mckeon MD Unavailable Annika Mckeon MD Unavailable Encounter Details Date Type Department Care Team (Late st Contact Info) Description 06/16/2023 Abstract [facility] [address] [place] [address] Annika Mckeon MD [address] [place] [address] 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 Tobacco Use Types [...] AM EDT Social Work [facility] [address] [place] [address] Sadaf Gutierrez LISW-S [address] [place] [address] 02/22/2025 10:50 AM EDT Office Visit [facility] [address] [place] [address] Tyrese Swanson MD [address] [place] [address] 03/28/2025 12:20 PM EDT Office Visit [facility] [address] [place] [address] Annika Mckeon MD [address] [place] [address] documented as of this encounter Visit Diagnoses Not on filedocumented in this encounter Care Teams Field Nurse Relationship Specialty Start Date End Date Annika Mckeon MD [facility] [place] [address] PCP - General Family Medicine 12/27/22 Annika Mckeon MD [address] [place] [address] [place] [address] PCP - ACO Reach 10/03/23 09/09/24 Annika Mckeon MD [address] [facility] [place] [address] PCP - Devoted 08/04/24 Annika Mckeon MD [address] [facility] [place] [address] PCP - ACO Reach 09/17/24 11/04/24 Pippa Rouse NP [address] [facility] [place] [address] Nurse Practitioner Family Medicine 12/27/22 Ghislaine Lawson, NIKOS [address] [place] [address] Registered Nurse Family Medicine 12/09/23 documented as of this encounter
--- OUTSIDE RECORDS SUMMARY | 2025-02-12 10:29 | XMS_ITS | Encounter Summary ---
Author Organization [facility] Address [address] [place] [address] Phone Care Team Providers Care Technical Support Technician Name Role Phone Annika Mckeon MD Primary Care Provider [phone] Encounter Details Date Type Department Care Team (Late st Contact Info) Description 04/26/[address] [facility] [address] [place] [address] Scanning, Generic Provider 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 Tobacco Use [...] Description 05/31/2025 1:40 PM EDT Office Visit [facility] [address] [facility] [address] [place] [address] Ran Rodriguez MD [address] [facility] [address], [address] [place] [address] documented as of this encounter Visit Diagnoses Not on filedocumented in this encounter Additional Health Concerns Assessment Noted Time A fall risk assessment has been complete d for the patient 02/12/2024 2:26 PM EDT documented as of this encounter Care Teams Technical Support Technician Relationship Specialty Start Date End Date Annika Mckeon MD [address] [place] [address] PCP - General Family Medicine 02/12/24 documented as of this encounter
--- OUTSIDE RECORDS SUMMARY | 2025-02-12 10:29 | XMS_ITS | Encounter Summary ---
Author Organization [facility] Address [address] [place] [address] Care Team Providers Care Control Clerk Auditing Name Role Phone Annika Mckeon MD Primary Care Provider [phone] Pippa Rouse TRANSMISSION SUPERVISOR Unavailable [phone] Annika Mckeon MD Unavailable Ghislaine Lawson RN Unavailable [phone] Annika Mckeon MD Unavailable Annika Mckeon MD Unavailable Encounter Details Date Type Department Care Team (Late st Contact Info) Description 06/13/2023 Abstract [facility] [address] [place] [address] Annika Mckeon MD [address] [place] [address] 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 Tobacco Use Types [...] AM EDT Social Work [facility] [address] [place] [address] Sadaf Gutierrez LISW-S [address] [place] [address] 02/22/2025 10:50 AM EDT Office Visit [facility] [address] [place] [address] Tyrese Swanson MD [address] [place] [address] 03/28/2025 12:20 PM EDT Office Visit [facility] [address] [place] [address] Annika Mckeon MD [address] [place] [address] documented as of this encounter Visit Diagnoses Not on filedocumented in this encounter Care Teams Control Clerk Auditing Relationship Specialty Start Date End Date Annika Mckeon MD [facility] [place] [address] PCP - General Family Medicine 12/27/22 Annika Mckeon MD [address] [place] [address] [place] [address] PCP - ACO Reach 10/03/23 09/09/24 Annika Mckeon MD [address] [facility] [place] [address] PCP - Devoted 08/04/24 Annika Mckeon MD [address] [facility] [place] [address] PCP - ACO Reach 09/17/24 11/04/24 Pippa Rouse NP [address] [facility] [place] [address] Nurse Practitioner Family Medicine 12/27/22 Ghislaine Lawson, NIKOS [address] [place] [address] Registered Nurse Family Medicine 12/09/23 documented as of this encounter
--- OUTSIDE RECORDS SUMMARY | 2025-02-12 10:29 | XMS_ITS | Encounter Summary ---
Author Organization [facility] Address [address] [place] [address] Care Team Providers Care Tariff Clerk Name Role Phone Annika Mckeon MD Primary Care Provider [phone] Pippa Rouse DATA PROCESSING CLERK Unavailable [phone] Annika Mckeon MD Unavailable Ghislaine Lawson RN Unavailable [phone] Annika Mckeon MD Unavailable Annika Mckeon MD Unavailable Encounter Details Date Type Department Care Team (Late st Contact Info) Description 06/11/2023 Abstract [facility] [address] [place] [address] Annika Mckeon MD [address] [place] [address] 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 Tobacco Use Types [...] AM EDT Social Work [facility] [address] [place] [address] Sadaf Gutierrez LISW-S [address] [place] [address] 02/22/2025 10:50 AM EDT Office Visit [facility] [address] [place] [address] Tyrese Swanson MD [address] [place] [address] 03/28/2025 12:20 PM EDT Office Visit [facility] [address] [place] [address] Annika Mckeon MD [address] [place] [address] documented as of this encounter Visit Diagnoses Not on filedocumented in this encounter Care Teams Tariff Clerk Relationship Specialty Start Date End Date Annika Mckeon MD [facility]9 [place] [address] PCP - General Family Medicine 12/27/22 Annika Mckeon MD [address] [place] [address] [place] [address] PCP - ACO Reach 10/03/23 09/09/24 Annika Mckeon MD [address] [facility] [place] [address] PCP - Devoted 08/04/24 Annika Mckeon MD [address] [facility] [place] [address] PCP - ACO Reach 09/17/24 11/04/24 Pippa Rouse NP [address] [facility] [place] [address] Nurse Practitioner Family Medicine 12/27/22 Ghislaine Lawson, NIKOS [address] [place] [address] Registered Nurse Family Medicine 12/09/23 documented as of this encounter
--- OUTSIDE RECORDS SUMMARY | 2025-02-12 10:29 | XMS_ITS | Encounter Summary ---
Author Organization [facility] Address [address] [place] [address] Care Team Providers Care Supervisor [employer] Name Role Phone Annika Mckeon MD Primary Care Provider [phone] Pippa Rouse WEB DATABASE DEVELOPER Unavailable [phone] Annika Mckeon MD Unavailable Ghislaine Lawson RN Unavailable [phone] Annika Mckeon MD Unavailable Annika Mckeon MD Unavailable Encounter Details Date Type Department Care Team (Late st Contact Info) Description 03/24/2024 Orders Only [facility] [address] [place] [address] Annika Mckeon MD [address] [place], [place] [phone] History of deep venous thrombosis (DVT) of distal vein of right lower extremity (Primary Dx); Factor 5 Leiden mutation, heterozygous ([facility]) 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 Tobacco Use Types Packs/Day Years [...] How often do you attend chur or muslim services? More than 4 times per year [...] Recorded Patient Health Questionnaire-2 Score 4 09/09/2023 [facility] of Occupat ional Health - Occupational Stress [...] place to sleep or slept in a half-way (including now)? No 07/15/2023 Comments No Sex [...] 10:00 AM EDT Social Work [facility] [address] [place] [address] Sadaf Gutierrez LISW-S [address] [place] [address] 02/22/2025 10:50 AM EDT Office Visit [facility] [address] [place] [address] Tyrese Swanson MD [address] [place] [address] 03/28/2025 12:20 PM EDT Office Visit [facility] [address] [place] [address] Annika Mckeon MD [address] [place] [address] documented as of this encounter Visit Diagnoses Diagnosis History of deep venous thrombosis (DVT) of distal vein of right lower extremity- Primary Factor 5 Leiden mutation, heterozygous ([facility]) documented in this encounter Additional Health Concerns Assessment Noted Time PHQ-9 Depression Total Score: 8 09/09/19 24 2:00 PM EST documented as of this encounter Care Teams Supervisor [employer] Relationship Specialty Start Date End Date Annika Mckeon MD [address] [place] [address] PCP - General Family Medicine 12/27/22 Annika Mckeon MD [address] [place] [address] PCP - ACO Reach 10/03/23 09/09/24 Annika Mckeon MD [address] [place] [address] PCP - Devoted 08/04/24 Annika Mckeon MD [address] [place] [address] PCP - ACO Reach 09/17/24 11/04/24 Pippa Rouse NP [address] [place] [address] Nurse Practitioner Family Medicine 12/27/22 Ghislaine Lawson, RN [address] [place] [address] Registered Nurse Family Medicine 12/09/23 documented as of this encounter
--- OUTSIDE RECORDS SUMMARY | 2025-02-12 10:30 | XMS_ITS | Encounter Summary ---
Author Organization [facility] Address [address] [place] [address] Care Team Providers Care Restorative Art Embalmer Name Role Phone Annika Mckeon MD Primary Care Provider [phone] Pippa Rouse SCAN COORDINATOR Unavailable [phone] Annika Mckeon MD Unavailable Ghislaine Lawson RN Unavailable [phone] Annika Mckeon MD Unavailable Annika Mckeon MD Unavailable Encounter Details Date Type Department Care Team (Late st Contact Info) Description 09/23/2023 External Result Encounter [facility] External Department Unsolicited Annika Mckeon MD [address] [place] [address] 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 Tobacco Use Types [...] How often do you attend chur or catholic services? More than 4 times per year 07/15/2023 Do you belong to any clubs o r organizations such as nondenominational groups, unions, fraternal or athletic groups, or [...] Recorded Patient Health Questionnaire-2 Score 4 09/09/2023 [facility] of Occupat ional Health - Occupational Stress [...] place to sleep or slept in a intermediate (including now)? No 07/15/2023 Comments Unknown Sex [...] EDT Social Work [facility] [address] [place] [address] Sadaf Gutierrez LISW-S [address] [place], [place] [address] 02/22/2025 10:50 AM EDT Office Visit [facility] [address] [place] [address] Tyrese Swanson MD [address] [place] [address] 03/28/2025 12:20 PM EDT Office Visit [facility] [address] [place] [address] Annika Mckeon MD [address] [place], [place] [address] documented as of this encounter Procedures Procedure Name Priority Date/Time Associated Diagnosis Comments CONGENITAL TRANSTHORACIC ECHO (TTE) COMPLETE 09/23/2023 7:48 AM EST documented in this encounter Results * Congenital transthoracic echo (TTE) complete (09/23/2023 7:48 AM EST) Anatomical Region Laterality Modality Heart Ultrasound 09/23/2023 7:48 AM EST Narrative 09/23/2023 4:26 PM EST [facility] [place] [address] [place] [address] Echocardiogram Signed Patient: Rebecca Herrera MR#: [id number] : 1950 Acct:[id number] Age/Sex: 72 / F ADM Date: 09/23/23 Loc: Room: Type: [facility] Attending Dr: Annika Mckeon MD Ordering Provider: [...] Procedure Note Oneyda Escalante MD - 09/24/2023 [facility] [place] [address] [place] [address] Echocardiogram Signed Patient: Rebecca Herrera LMR#: [id number] : 3Acct:[id number] Age/Sex: 72 / FADM Date: 09/23/23 Loc: Room:Type: [facility] Attending Dr: Annika Mckeon MD Ordering Provider: [...] 180.1 cm/sec Ao V2 VTI: 61.8 cm MAVLIN(I,D): 1.9 cm2 MALVIN(V,D): 1.9 cm2 Measurements from [...] documented as of this encounter Care Teams Restorative Art Embalmer Relationship Specialty Start Date End Date Annika Mckeon MD [address] [place] [address] PCP - General Family Medicine 12/27/22 Annika Mckeon MD [address] [place] [address] PCP - ACO Reach 10/03/23 09/09/24 Annika Mckeon MD [address] [place] [address] PCP - Devoted 08/04/24 Annika Mckeon MD [address] [place] [address] PCP - ACO Reach 09/17/24 11/04/24 Pippa Rouse NP [address] [place] [address] Nurse Practitioner Family Medicine 12/27/22 Ghislaine Lawson, RN [address] [facility] [place] [address] Registered Nurse Family Medicine 12/09/23 documented as of this encounter
--- OUTSIDE RECORDS SUMMARY | 2025-02-12 10:30 | XMS_ITS | Encounter Summary ---
Author Organization [facility] Address [address] [place], [place] [address] Care Team Providers Care Digital Forensics Examiner Name Role Phone Unavailable Primary Care Provider Unavailabl e Source Comments In the event this information is protected by the Federal Confidentiality of Alcohol and Drug AbusePatient Records regulations: The Federal rules restrict any use of the information to criminally investigate or prosecute any alcohol or drug abuse patient.[facility] Encounter Details Date Type Department Care Team (Late st Contact Info) Description 10/06/2023 Lab Requisition [facility] [address] [place] [address] Miguel Chang MD [address] [place] [address] Person encountering health services to consult on [...] EST) Case Report Surgical Pathology Report Case: [id number] Authorizing Provider: Miguel Chang MD Collected: 10/06/2023 02:50 PM Ordering Location: [facility] Received: 10/06/2023 02:51 PM [facility] Pathologist: Ajit Lawton MD Specimen: SLIDE(S), 15 SLIDES [id number] 10/13/2023 5:23 PM EDT [facility] FINAL DIAGNOSIS A. 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 10/13/2023 5:23 PM EDT [facility] at 1723 EDT Diagnosis Comment Thank [...] been determined by the performing laboratory within [facility] s [facility] Pathology and Laboratory Medicine [place] ([facility], [facility], [facility], [facility], [facility], [facility], or [facility]) in a manner consistent with CLIA requirements. One or more of these tests have not been cleared or approved by the FDA. [facility] is regulated under CLIA as qualified to perform high-complexity testing. These tests are used for clinical purposes. They should not be regarded as investigational or for research. Positive and negative controls stain appropriately. 10/13/2023 5:23 PM EDT [facility] Clinical History CONSULT REQUESTED 10/13/2023 5:23 PM EDT [facility] Performing Lab Diagnostic interpretation performed at [facility], [address] [place] [address] CLIA# [id number] Peripatologist: Shade Smith M.D. 10/13/2023 5:23 PM EDT [facility] Blocks or Slides MICROSCOPE SLIDE / Unknown 10/06/2023 2:50 PM EST 10/06/2023 2:51 PM EST us Miguel Chang MD SURGICAL PATHOLOGY Final Re sult [facility] [address] [place], [place] [address] [place] [address], documented in this encounter Visit Diagnoses Diagnosis Person encountering health services to consult on behalf of another person Other person consulting on behalf of another person documented in this encounter
--- OUTSIDE RECORDS SUMMARY | 2025-02-12 10:30 | XMS_ITS ---
Author Organization [facility] Address [address] [place] [address] Care Team Providers Care Flexible Machining System Machinist Name Role Phone Annika Mckeon MD Primary Care Provider [phone] Pippa Rouse NP Unavailable [phone] Ghislaine Lawson RN Unavailable [phone] Annika Mckeon MD Unavailable Chronic Care [...] Phone Ghislaine Lawson RN(Responsible Staff) Registered Nurse [phone] Continued Care and Services Coordination
--- OUTSIDE RECORDS SUMMARY | 2025-02-12 10:30 | XMS_ITS | CCD ---
Author Organization [facility] Care Team Providers Care Television Script Writer Name Role Phone Claudio Alonso Unavailable Unavailable Laina Morales Unavailable Unavailable MISC, DOCTOR Admitting Unavailable MISAdeola, DOCTOR Attending Unavailable HELENA FONTENOT Primary Care Unavailable JOSEPH ARCHER Admitting Unavailable JOSEPH ARCHER Attending Unavailable HELENA FONTENOT Primary Care Unavailable Chiquita Gerber Unavailable Dipti Garvin Unavailable Venkat Miller Unavailable ODALYS Blancas Attending Provider MD Linda Radha Primary Care Provider [phone] MD Tyrese Swanson Attending Provider [phone] MD Linda [facility] Primary Care Provider MD Patricio Cifuentes Attending Provider [phone] MD Linda Radha Primary Care Provider [phone] MD Venkat Miller Attending Provider ODALYS Morales Attending Provider ODALYS Blancas Attending Provider Michael Ramirez Unavailable MD Radha Mckeon Primary Care Provider MD Venkat Miller Attending Provider ODALYS Morales Attending Provider DO Robert Ledezma II Attending Provider [phone] MD Michael Ramirez Attending Provider Radha Mckeon MD Primary Care Provider Padma GARCIAPippa Unavailable MD Linda [facility] Primary Care Provider [phone] DO Neto Burton Attending Provider MD Linda [facility] Attending Provider MD Linda [facility] Primary Care Provider DO Neto Burton Attending Provider MD Linda [facility] Attending Provider DO Robert Ledezma II Attending Provider DO Agustín Lin Emergency Provider [place] kemar Acosta MD [facility] Emergency Provider [phone] LINDA RADHA Elni Primary Care Physician MD Jasper Almonte Attending Provider MD Linda [facility] Primary Care Provider DO Mau Blackman Attending Provider MD Linda [facility] Primary Care Provider [phone] DO Robert Ledezma II Attending Provider MD Teri Stratton Attending Provider Padma GARCIAPippa Unavailable Linda MARTINEZ, Radha Worthington Unavailable Lulu KNOTT, Crystal Unavailable RADHA Liao-Adeola Watson Attending Provider EVANGELINA WATSON Attending Unavailable RADHA MCKEON Referring Unavailable RADHA MCKEON Primary Care Unavailable Linda MARTINEZ Jeanna Primary Care Provider Linda MARTINEZ Radha Elin Primary Care Provider ALEJANDRINA GONZALEZ Attending Unavailable RADHA MCKEON Referring Unavailable RADHA MCKEON Primary Care Unavailable Linda MARTINEZ Radha Elin Unavailable GELY SNOW Attending Unavailable LINDA JEANNA Primary Care Unavailable GELY SNOW Attending Unavailable GELY SNOW Referring Unavailable RADHA MCKEONJEANNA Primary Care Unavailable Linda MARTINEZ, Radha Worthington Unavailable Linda MARTINEZ, Radha F Unavailable Linda MARTINEZ, [facility] Care Provider Santana Williamson MD Attending Provider [phone] Jasper ALMONTE Attending Unavailable LANDY MAXWELL Attending Unavailab Jasper Rahman Attending Unavailable Linda MARTINEZ, [facility] Primary Care Provider Santana Williamson MD Attending Provider Helena Maxwell PA-C Attending Provider Padma PRICER BAGGER, Pippa Lopez Unavailable Padma PRICER BAGGER, Pippa Lopez Unavailable [phone] LJ, SADAF S Attending Unavailable GRECIA SWANSONMAD F Attending Unavailable LJ, SADAF S Referring Unavailable LINDA, RADHA F Attending Unavailable LJ, SADAF S Referring Unavailable FRANK, AHMAD F Attending Unavailable FRANK, AHMAD F Referring Unavailable LINDA, RADHA F Referring Unavailable LJ, SADAF S Attending Unavailable LINADRADHA F Attending Unavailable LINDA, RADHA F Attending Unavailable LJ, SADAF S Attending Unavailable PATRICIO CIFUENTES Attending Unavailable LJ, SADAF S Attending Unavailable LJ, SADAF S Referring Unavailable LJ, SADAF S Attending Unavailable RADHA MCKEON F Attending Unavailable LJ, SADAF S Attending Unavailable Patricio Cifuentes MD Attending Provider Linda MARTINEZ [facility] Care Provider [phone] Mau Blackman DO Attending Provider Santana Williamson Attending [facility] Santana Williamson Admitting Unavailable Helena Liao Admitting Unavailable Helena Liao Attending [facility] Care Unavailable Mau Blackman Admitting Unavailable Mau Blackman Attending Un[facility]available Santana Williamson Admitting Unavailable Santana Williamson Attending Unavailable Robert Ledezma II [facility] Ledezma II Ad[facility] Unavailable Helena Maxwell Admitting Unavailable Helena Maxwell Attending Unavailable [facility] Unavailable Patricio Cifuentes Admitting Unavailable Patricio Cifuentes Attending Unavailable [facility] Unavailable Mau Blackman Admitting Unavailable Mau Blackman Attending Unavailable Lulu RN, Crystal Unavailable Allergies Allergy Classification Reported Allergen(s) Allergy Type Date of Onset Reaction(s) Facility (20 sources) Enoxaparin Drug Allergy 4 Itching, Rash [facility] (1 source) No Known Medication Allergies; Translations: [No Known Medication Allergies] Propensity to adverse reactions (disorder) [facility] Repository Medications Current Medications Medication Drug Class(es) [...] 6 hours as needed for pain December 02, 2023 12:00am Start: 06-10-2023 take 1 tablet by efraín th once daily as needed for pain Acetaminophen 500 mg Tablet Active 500 MG PO Daily as needed for Pain June 10, 2023 1:00am Start: 05-15-2017 End: 06-10-2023 take 2 tablets by mouth once daily as needed for pain Acetaminophen (Tylenol) 325 mg Tablet Discontinued 2 TAB PO Daily as needed for Pain May 15, 2017 12:00am June 10, 2023 11:08am acetaminophen (T ylenol) 500 mg tablet Take by mouth every 6 hours if needed for mild pain (1 - 3). Active [id number] 200 actuat albuterol 0.09 mg/actuat metered dose [...] Albuterol Sulfate 90 mcg/actuation Hfa Aerosol Inhaler (6 sources) Start: 05-15-2017 take 1 puff(s) by inhalation every four to six hours as needed for wheezing Albuterol Sulfate 90 mcg/actuation Hfa Aerosol Inhaler Active 1 PUFF INHALATION EVERY 4-6 HOURS as needed for Shortness Of Breath Or Wheezing May 15, 2017 12:00am Start: 05-15-2017 take 1 puff(s) by in halation every four to six hours as needed for wheezing Albuterol Sulfate 90 mcg/actuation Hfa Aerosol Inhaler Active 1 PUFF INHALATION EVERY 4-6 HOURS as needed for Shortness Of Breath Or Wheezing May 14, 2017 11:00pm amoxicillin 500 mg oral capsule (20 sources) Penicillin-class Antibacterial Start: 05-04-2024 amoxicillin (Amoxil) 500 MG capsule 05/04/2024 Active 24 hr buPROPion hydrochloride 300 mg extended release oral tablet (20 sources) Aminoketone Start: 06-10-2023 take 1 tablet by mouth once daily in the morning buPROPion XL (Wellbutrin XL) 300 MG 24 hr tablet Indications: Recurrent major depressive disorder, remission status unspecified TAKE 1 TABLET BY MOUTH EVERY DAY IN THE MORNING FOR 90 DAYS 90 tablet 4 11/24/2024 Active Start: 04-25-2020 End: 06-10-2023 take 1 tablet by mouth once daily in the morning Bupropion Hcl 150 mg Tablet Extended Release 24 Hr Discontinued 150 MG PO Every morning April 25, 2020 12:00am June 10, 2023 11:07am Start: 06-22-2019 take 1 tablet by efraín th every twenty-four hours in the morning buPROPion XL (WELLBUTRIN XL) 150 mg 24 hr tablet Take 1 tablet (150 mg total) by mouth in the morning. 06/22/2019 Active busPIRone hydrochloride 5 mg oral tablet (20 sources) Start: 05-10-2024 End: 05-10-2025 take 1 tablet by mouth three times daily as needed for anxiety busPIRone (Buspar) 5 MG tablet Indications: Major depressive disorder, single episode, moderate (HCC) Take 1 tablet (5 mg) by mouth 3 (three) times a day as needed (anxiety) 30 tablet 05/10/2024 05/10/2025 Active cholecalciferol 0.05 mg oral tablet (20 sources) Vitamin D Start: 12-17-2024 cholecalcifero l (Vitamin D-3) 50 MCG (2000 UT) tablet Indications: Vitamin D deficiency Take 2,000 Units by mouth Daily Four times a week 16 tablet 1 12/17/2024 Active Start: 09-16-2023 End: 12-01-2023 take 1 tablet by mouth once daily Cholecalciferol (Vitamin D3) 50 mcg (2,000 unit) tablet Discontinued 50 MCG PO Daily September 16, 2023 1:00am December 01, 2023 11:54pm FreeTextSi tablet Orally Once a day; Note: Source Status: Taking; Provider: Angela Robledo ( ) Start: 06-24-2017 End: 06-10-2023 Cholecalciferol (Vitamin D3) (Vitamin D3) 1,000 unit Capsule Discontinued [id number] UNIT PO As Directed June 24, 2017 1:00am June 10, 2023 11:08am clobetasol propionate 0.0005 mg/mg topical ointment (5 sources) Corticosteroid Start: 12-03-2024 clobetasol (Te movate) 0.05 % ointment Indications: Acute vulvitis Apply thin film BID x 4 weeks then once daily x 4 weeks then every other day and ween slowly to use twice weekly 30 g 3 12/03/2024 Active Start: 04-16-2017 clobetasol (TE MOVATE) 0.05 % cream 04/16/2017 Active cyclobenzaprine hydrochloride 5 mg oral tablet (20 sources) Muscle Relaxant Start: 03-24-2024 take 1 tablet by mouth three times daily as needed for muscle spasms Cyclobenzaprine 5 mg tablet Active 5 MG PO Three times daily as needed for muscle spasm March 24, 2024 12:00am Start: 06-17-2021 take 1 tablet by efraín three times daily as needed for pain [...] D2) 1,250 mcg (50,000 unit) capsule Active [id number] UNIT PO 4 times per week June 10, 2023 1:00am , fri Start: 06-10-2023 take [id number] [IU] by mouth four times weekly Ergocalciferol (Vitamin D2) Active [id number] UNIT PO 4 times per week June 10, 2023 1:00am , fri Start: 06-10-2023 take [id number] [IU] by mouth every week Ergocalciferol (Vitamin D2) Active [id number] UNIT PO every week June 10, 2023 12:00am take 1 capsule by mo [facility] every week ergocalciferol (Vitamin D2) 1.25 MG (39483 UT) capsule Take 1 capsule (1,250 mcg) by mouth 1 (one) time per week. Active End: 05-10-2024 take 1 capsule by mouth five times weekly ergocalciferol (Vitamin D2) 1.25 MG (18168 UT) capsule TAKE 1 CAPSULE BY MOUTH 5 TIMES PER WEEK 05/10/2024 Discontinued (Duplicate order) Ergocalciferol 5 0 MCG (2000 UT) tablet Take 1.25 mg by mouth. 0 Active ergocalciferol, vitamin D2, (VITAMIN D2 ORAL) (2 sources) ergocalciferol, vitamin D2, (VITAMIN D2 ORAL) Take 1.25 mg by mouth. 9 times a week Active famotidine 20 mg oral tablet (20 sources) Histamine-2 Receptor Antagonist Start: 04-23-20 take 1 tablet by mouth once daily at bedtime as needed famotidine (Pepcid) 20 MG tablet Indications: Gastro-esophageal reflux disease without esophagitis TAKE 1 TABLET BY MOUTH EVERY DAY AT BEDTIME NEEDED 90 tablet 4 12/10/2024 Active Start: 04-25-2020 End: 09-16-2023 take 1 tablet by mouth once daily at bedtime Famotidine 20 mg Tablet Discontinued 20 MG PO Daily at bedtime April 25, 2020 12:00am September 16, 2023 1:04pm fluticasone propionate 0.05 mg/actuat metered dose nasal spray (20 sources) Corticosteroid take 2 spray(s) nasa l route in the morning fluticasone (Flonase) 50 [...] Active 200 MG PO Twice daily December 30, 2018 12:00am hydroxychloroqui ne (Plaquenil) 200 MG tablet 1 (one) time each day at the same time. Active ketoconazole 20 mg/ml topical cream (1 source) Azole Antifungal Start: 12-02-2024 ketoconazole (NIZOral) 2 % cream APPLY TO EARS AND EXTREMITIES DAILY FOR TWO WEEKS NEEDED RASH 12/02/2024 Active lidocaine 0.05 mg/mg medicated patch (10 sources) Antiarrhythmic, Amide Local Anesthetic Start: 06-17-2021 Lidocaine 5 % 1 patc h remove after 12 hours Externally Once a day for 10 day(s) Apply to painful area as prescribed as needed Jun, Active Start: 06-17-2021 Lidocaine 5 % 1 patch remove after 12 hours Externally Once a day for 10 day(s) Apply to painful area as prescribed as needed Jun, Active lisinopril 2.5 mg oral tablet (17 sources) Angiotensin Converting Enzyme Inhibitor Start: 09-14-2024 [...] Start: 09-16-2023 take 1 tablet by efraín th once [...] Start: 05-15-2017 take 2 tablets by mo uth once daily Multivitamin Active 2 TAB PO Daily May 14, 2017 11:00pm Start: 05-15-2017 take 1 tablet by efraín th once daily Multivitamin Active 1 TAB PO Daily May 14, 2017 11:00pm Start: 05-15-2017 take 1 tablet by efraín th once daily Multivitamin Active 1 TAB PO Daily May 15, 2017 12:00am Multivitamin tablet (6 sources) Start: 09-16-2023 take 1 tablet by mouth once daily Multivitamin tablet Active 1 TAB PO Daily September 16, 2023 1:00am Start: 09-16-2023 take 1 tablet by efraín th once daily Multivitamin tablet Active 1 TAB PO Daily September 16, 2023 12:00am nitroglycerin 0.004 mg/mg rectal ointment (20 sources) Nitrate Vasodilator Start: 09-16-2023 nitroglyce rin (Rectiv) 0.4 % (w/w) rectal ointment 09/16/2023 Active Start: 09-16-2023 nitroglycerin (Rectiv) 0.4 % (w/w) rectal ointment Twice daily 09/16/2023 Active Start: 06-10-2023 End: 09-16-2023 Nitroglycerin 0.4 % (w/w) oi ntment Active 1 [facility] Twice daily as needed for rectal discomfort September 16, 2023 1:00am Start: 06-10-2023 End: 09-16-2023 Nitroglycerin 0.4 % (w/w) oi ntment Discontinued 1 [facility] Twice daily 02 03June 10, 2023 1:00am September 16, 2023 1:07pm PARoxetine hydrochloride 30 mg oral tablet (20 sources) Serotonin Reuptake Inhibitor Start: 01-08-2025 take 1 tablet by mouth once daily in the morning PARoxetine (Paxil) 30 MG tablet Indications: Panic disorder TAKE 1 TABLET BY MOUTH EVERY DAY IN THE MORNING 90 tablet 1 01/08/2025 Active Start: 07-09-2024 take 1 tablet by efraín th once [...] June 10, 2023 1:00am Start: 06-10-2023 take 20 mg by mouth [...] Tablet Discontinued 20 MG PO Daily May 15, 2017 12:00am June 10, 2023 11:09am Start: 05-15-2017 Paroxetine Hcl (Paxil) 20 mg Tablet Active 30 MG PO Daily May 15, 2017 12:00am polyethylene glycol 3350 [id number] mg / potassium chloride 2970 mg / sodium bicarbonate 6740 mg / sodium chloride 5860 mg / sodium sulfate 30460 mg powder for oral solution (2 sources) [...] Start: 06-17-2021 take 1 tablet by efraín every twelve hours predniSONE 20 MG 1 tablet Orally bid for 5 day(s) Jun, Active Start: 06-24-2017 End: 12-23-2017 take 1 tablet by mouth once daily Prednisone 5 tablet Discontinued 5 MG PO Daily June 24, 2017 1:00am December 23, 2017 10:46am Start: 05-15-2017 End: 06-24-2017 take 1 tablet by mouth once daily Prednisone 20 mg Tablet Discontinued 20 MG PO Daily May 15, 2017 12:00am June 24, 2017 11:17am Robaxin-750 750 MG (9 sources) Start: 10-05-2021 take 1 tablet by mouth at bedtime Robaxin-750 750 MG 1 -2 tablet(s) Orally at bedtime for 10 days Oct, Active silver sulfADIAZINE 10 mg/ml topical cream (20 sources) Sulfonamide Antibacterial Start: 11-04-2023 silver sulfADIAZINE (Silvadene) 1 % cream Indications: Acute vulvitis Apply topically Daily 25 g 11/04/2023 Active therapeutic multivitamin (THERAGRAN) tablet (2 sources) take 1 tablet by mouth in the [...] 40 mg Start: 09-23-2017 Kenalog -40 mg Sep, Vitamin D 2000 UNIT (10 sources) take 1 tablet by mouth once daily Vitamin D 2000 UNIT 1 tablet Orally Once a day Active warfarin sodium 2 mg oral tablet (20 sources) Vitamin K Antagonist Start: 05-17-2024 take 2 tablets by mouth three times weekly Warfarin 2 mg tablet Active 4 MG PO 3 Times a week May 17, 2024 4:13pm Start: 05-17-2024 take 4 mg by mouth [...] MG PO As Directed June 10, 2023 1:00am September 16, 2023 1:07pm Start: 06-10-2023 End: 09-16-2023 Warfarin Discontinued 1 MG P O As Directed June 10, 2023 1:00am September 16, 2023 1:07pm Start: 04-24-2021 End: 06-26-2024 take 1 mg by mouth once daily warfarin (Coumadin) 2 MG tablet Indications: Factor 5 Leiden mutation, heterozygous (HHS-HCC) TAKE 1 TABLET BY MOUTH EVERY DAY. TAKE 1 MG ON Tuesdays06/26/2024 Active take 2 tablets by mo uth in the evening warfarin (COUMADIN) 1 mg [...] day Active zoledronic acid 4 mg injection (20 sources) Bisphosphonate Start: 08-30-2024 Zoledronic Acid 4 mg recon soln Active MG IV August 30, 2024 1:00am zoledronic acid (Zometa) 4 MG/5ML injection Infuse 4 mg into a venous catheter 1 (one) time Active Completed/Discontinued Medications Medication Drug Class(es) Dates Sig (Normalized) Sig (Original) acetaminophen 325 mg / HYDROcodone bitartrate 5 mg oral tablet (20 sources) Opioid Agonist Start: 05-15-2017 End: 04-25-2022 take 1 tablet by mouth every four to six hours as needed for pain Hydrocodone-Acetami nophen ([place]) 5-325 mg Tablet Discontinued 1 TAB PO EVERY 4-6 HOURS as needed for Pain May 15, 2017 12:00am April 25, 2022 12:56pm take 1 tablet by efraín th every six hours as needed take 1 tablet by efraín th every six hours as needed [place] 5-325 MG 1 tablet as needed Orally [...] 325 MG PO Daily July 01, 2018 1:00am April 22, 2023 8:54am meloxicam 7.5 mg oral tablet (20 sources) Nonsteroidal Anti-inflammatory Drug Start: 12-23-2017 End: 12-30-2018 take 1 tablet by mouth once daily Meloxicam 7.5 mg Tablet Discontinued 7.5 MG PO Daily December 23, 2017 12:00am December 30, 2018 8:46am methylPREDNISolone 4 mg oral tablet (12 sources) Corticosteroid Start: 03-24-2024 End: 04-23-2024 take 1 tablet by mouth once Methylprednisolone (Medrol (Mele)) 4 mg tablets,dose pack Discontinued 0 PO per package directions March 24, 2024 12:00am April 23, 2024 9:11am PO PER PKG DIR Multivitamin Tablet (6 sources) Start: 05-15-2017 End: 09-16-2023 take 2 tablets by mouth once daily Multivitamin Tablet Discontinued 2 TAB PO Daily May 15, [...] MG PO Every evening September 16, 2023 1:00am December 01, 2023 11:54pm take 1 capsule by mouth every tw enty-four hours ondansetron 4 mg oral tablet (20 sources) Serotonin-3 Receptor Antagonist Start: 12-02-2023 End: 05-08-2024 take 1 tablet by mouth every eight hours as needed Ondansetron Hcl 4 mg tablet Discontinued 4 MG PO .q8h prn 6 2 December 02, 2023 12:00am February 27, 2024 9:16am oxyCODONE hydrochloride 5 mg oral capsule (20 sources) Opioid Agonist Start: 12-02-2023 End: 05-08-2024 take 1 capsule by mouth every eight hours as needed for pain Oxycodone 5 mg capsule Discontinued 5 MG PO Q8H as needed for pain 6 2 December 02, 2023 February 27, 2024 9:16am prasterone 25 mg oral capsule (20 sources) Start: 07-01-2018 End: 04-25-2020 take 1 capsule by mouth once daily Prasterone (Dhea) (Dhea) 25 mg Capsule Discontinued 25 MG PO Daily July 01, 2018 1:00am April 25, 2020 9:09am Progesterone (20 sources) Progesterone Start: 07-01-2018 End: 04-25-2020 Progesterone Micronized 4 % Gel Discontinued 45 MG Daily July 01, 2018 1:00am April 25, 2020 9:10am Start: 07-01-2018 End: 04-25-2020 Progesterone Micronized 4 [...] Tablet Discontinued 10 MG PO Daily May 15, 2017 12:00am April 24, 2021 9:30am sulfamethoxazole 800 mg / trimethoprim 160 mg oral tablet (20 sources) Dihydrofolate Reductase Inhibitor Antibacterial, Sulfonamide Antimicrobial Start: 05-15-2017 End: 12-23-2017 take 1 tablet by mouth once Sulfamethoxazole- Trimethoprim (Bactrim Ds) 800-160 mg Tablet Discontinued 1 TAB PO MOWEFR May 15, 2017 12:00am December 23, 2017 10:47am tamsulosin hydrochloride 0.4 mg oral capsule (20 sources) alpha-Adrenergic [place] Start: 12-02-2023 End: 02-27-2024 take 1 capsule by mouth once daily Tamsulosin (Flomax) 0.4 mg capsule Discontinued 0.4 MG PO Daily 02 07December 02, 2023 12:00am February 27, 2024 9:16am End: 05-08-2024 take 1 capsule by mouth every twenty-four hours in the morning tamsulosin (Flomax) 0.4 MG 24 hr capsule Take 0.4 mg by mouth in the morning and 0.4 mg before bedtime. 05/08/2024 Discontinued (Therapy completed) Toradol 30 mg/ml (9 sources) Start: 06-17-2021 Toradol 30 mg/ ml Jun, 30 mg Vitamin D2 50,000 intl units (1.25 mg) oral capsule (2 sources) Start: 12-10-2023 take 1 capsule by mouth [...] Zinc Amino Acid Chelate 50 mg tablet (6 sources) Start: 06-24-2017 End: 04-22-2023 take 1 tablet by mouth once daily Zinc Amino Acid Chelate 50 mg tablet Discontinued 50 MG PO Daily June 24, 2017 1:00am April 22, 2023 8:54am Start: 06-24-2017 End: 04-22-2023 take 1 tablet [...] uncomplicated] Onset: 7 09-09-2023 Chronic Cardiac dysrhythmias (2 sources) Bradycardia 12-10-2023 Episodic Coagulation and hemorrhagic disorders [...] Onset: 4 05-08-2024 Chronic Heart valve disorders (4 sources) Systolic murmur; Translations: [Cardiac murmur, unspecified] 09-09-2023 Episodic Immunizations and screening for infectious disease (2 sources) Vaccination needed; Translations: [Encounter for immunization] 05-10-2024 Episodic Inflammatory diseases of female pelvic organs (1 source) Acute vulvitis; Translations: [Acute vulvitis] 12-03-2024 Episodic Malaise and fatigue (20 sources) Fatigue; [...] 3 Resolved: 4 04-22-2023 Chronic Other aftercare (2 sources) shelter (current) use of anticoagulants; Translations: [terminal carman (current) use of anticoagulants] Onset: 4 Episodic [...] Resolved: 2 Episodic Other connective tissue disease (13 sources) Trochanteric bursitis; Translations: [Trochanteric bursitis, left hip] 02-26-2024 Episodic Other connective tissue disease (20 sources) Impingement syndrome of unspecified shoulder; Translations: [Other affections of shoulder region, not elsewhere classified] 02-27-2024 Episodic Other connective tissue disease (17 sources) Other shoulder lesions, unspecified shoulder; Translations: [Disorders of bursae and tendons in shoulder region, unspecified] 02-27-2024 Episodic Other connective tissue disease (7 sources) Rotator cuff arthropathy of right shoulder; Translations: [Unspecified rotator cuff tear or rupture of right shoulder, not specified as traumatic] 05-17-2024 Episodic Other connective tissue disease (7 sources) Tear of right rotator cuff; Translations: [Unspecified rotator cuff tear or rupture of right shoulder, not specified as traumatic] 05-17-2024 Episodic Other connective tissue disease (6 sources) Unspecified rotator cuff tear or rupture of right shoulder, not specified as traumatic; Translations: [Other specified arthropathy, shoulder region] 05-17-2024 Episodic Other diseases of kidney and ureters (20 sources) Secondary hyperparathyroidism; Translations: [Secondary hyperparathyroidism of renal origin] Onset: 3 09-09-2023 Chronic Other endocrine disorders (20 sources) Hypoadrenalism; Translations: [Unspecified adrenocortical insufficiency] Onset: 7 09-09-2023 Chronic Other endocrine disorders (4 sources) Tertiary hyperparathyroidism; Translations: [Other hyperparathyroidism] 09-27-2024 Chronic Other gastrointestinal disorders (4 sources) History of bypass of stomach; Translations: [...] hip Onset: 2 Resolved: 2 Episodic Other non-traumatic joint disorders (1 source) Pain in right knee; Translations: [Pain in right knee] Onset: 5 Episodic Other screening for suspected conditions (not mental disorders or infectious disease) (7 sources) Hormone increase; Translations: [Patient encounter status] Onset: 5 12-10-2023 Episodic Other skin disorders (20 sources) Localized scleroderma; 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]] Onset: 3 12-27-2022 Chronic Other skin disorders (20 sources) Lichen sclerosus et atrophicus; Translations: [Circumscribed scleroderma] Onset: 3 12-27-2022 Chronic Other skin disorders (2 sources) Mass of left parotid gland 12-10-2023 Episodic Other skin disorders (2 sources) Alopecia; Translations: [Nonscarring hair loss, unspecified] 11-13-2024 Episodic Other upper respiratory disease (20 sources) Allergic rhinitis due to pollen; Translations: [Allergic rhinitis due to pollen] Onset: 3 12-27-2022 Chronic Residual codes; unclassified (20 sources) Obstructive sleep apnea syndrome; Translations: [Obstructive sleep apnea (adult) (pediatric)] Onset: 7 12-27-2022 Chronic Residual codes; unclassified (14 sources) Sleep apnea; Translations: [Sleep apnea, unspecified] Onset: 4 02-26-2024 Chronic Residual codes; unclassified (1 source) Obstructive sleep apnea (adult) (pediatric); Translations: [Obstructive sleep apnea (adult) (pediatric)] Onset: Chronic Residual codes; unclassified (2 sources) Postmenopausal [...] Urolithiasis ; Translations: [Urinary calculus, unspecified] Onset: 12-10-2023 12-02-2023 Episodic Cataract (20 sources) Nuclear sclerosis; [...] [Other iron deficiency anemias] Onset: 04-23-2024 Episodic Fluid and electrolyte disorders (20 sources) Acute hypokalemia; Translations: [Hypokalemia] Onset: 01-15-2024 11-29-2023 Episodic Lymphadenitis (20 sources) Mediastinal lymphadenopathy; Translations: [Localized enlarged lymph nodes] Onset: 02-26-2017 Resolved: 04-23-2017 12-30-2018 Episodic Mood disorders (20 sources) Mood disorders Onset: 09-09-2023 Resolved: 09-30-2024 09-09-2023 Nutritional deficiencies (20 sources) Dietary zinc deficiency; Translations: [Dietary zinc deficiency] Onset: 12-27-2022 12-27-2022 Episodic Other aftercare (20 sources) Long-term current use of anticoagulant; Translations: [terminal carman (current) use of anticoagulants] Onset: 10-06-2023 04-13-2019 Episodic Other aftercare (20 sources) Drug therapy finding; Translations: [shelter (current) use of anticoagulants] Onset: 02-12-2024 05-08-2024 [...] index (BMI) 27.0-27.9, adult] Onset: 02-12-2024 Episodic Phlebitis; thrombophlebitis and thromboembolism (20 sources) H/O: Deep vein thrombosis; Translations: [Personal history of other venous thrombosis and embolism] Onset: 10-06-2023 06-24-2017 Episodic Spondylosis; intervertebral disc disorders; other back [...] Test Name Value Interpretation Reference Range Facility ALL MAGNESIUMon 02-10-2025 Magnesium [Mass/Vol] 2.1 mg/dL 1.8 - 2 .4 mg/dL [facility] ALL RENAL FUNCTION PANELon 0 02-10-2025 Albumin [Mass/Vol] 3.4 g/dL 3.4 - 5.0 g/dL [facility] Anion gap [Moles/Vol] 12.1 mmol/L [facility] Calcium [Mass/Vol] 8.5 mg/dL 8.5 - 10. 1 mg/dL [facility] Chloride [Moles/Vol] 109 mmol/L High 98 - 10 7 mmol/L [facility] CO2 [Moles/Vol] 28.5 mmol/L 21.0 - 32.0 mmol/L [facility] Creatinine [Mass/Vol] 0.59 mg/dL 0.55 - 1.02 mg/dL [facility] GFR/1.73 sq M.predicted CKD-EPI (S/P/Bld) [Vol rate/Area] >60 >=60 mL/min/1.7 3m 2 [facility] Glucose [Mass/Vol] 85 mg/dL 74 - 106 mg/dL [facility] Interpretation and review of laboratory results Abnormal [facility] Phosphate [Mass/Vol] 3.4 mg/dL 2.6 - 4 .7 mg/dL [facility] Potassium [Moles/Vol] 3.6 mmol/L 3.5 - 5.1 mmol/L [facility] Sodium [Moles/Vol] 146 mmol/L High 136 - 145 mmol/L [facility] TBH EGFR-NON AF GUINEAN >60 >=60 mL/min/1.7 3m 2 [facility] Urea nitrogen [Mass/Vol] 9 mg/dL 7.0 - 18.0 mg/dL [facility] Urea nitrogen/Creatinine [Mass ratio] 15.3 mg/mg [facility] No Panel Informationon 02-10 [facility] MM screening mammo BI w/CADo n 12-10-2024 MM screening mammo BI w/CAD [facility] [address] [place] [address] Mammography Report Signed Patient: Rebecca Herrera MR#: [id number] : 1950 Acct:[id number] Age/Sex: 73 / F Adm Date: 12/10/24 Loc: [place] Room: Type: [facility] Attending Dr: Patricio Cifuentes MD Ordering Provider: MURIEL Ramírez Date of Service: 12/10/24 Procedure(s): MM screening mammo BI w/CAD Accession Number(s): ([id number]) MM/MM screening mammo BI w/CAD: screening Copies [...] Jr., D.ODemi 12/10/2024 11:10 AM Dictation Location: [facility] Dictated By: Hammad Thompson Jr DO 12/10/24 1109 Signed By: 12/10/24 1110 Normal [facility] Mammography reportOrdered By : Hammad Thompson on 12-10-2024 Diagnostic imaging study [facility] [address] [place] [address] Mammography Report Signed Patient: Rebecca Herrera MR#: [id number] : 1950 Acct:[id number] Age/Sex: 73 / F Adm Date: 5 Loc: [place] Room: Type: [facility] Attending Dr: Patricio Cifuentes MD Ordering Provider: MURIEL Ramírez Date of Service: 12/10/24 Procedure(s): MM screening mammo BI w/CAD Accession Number(s): ([id number]) MM/MM screening mammo BI w/CAD: screening Copies to: MD Patricio Lorenzo MD-ALEX~ CLINICAL DATA: Screening for malignancy. SCREENING MAMMOGRAM - FULL FIELD DIGITAL WITH TOMOSYNTHESIS AND CAD COMPARISON:Mammograms dating back to 2020 Tomosynthesis craniocaudal and mediolateral oblique views of both breasts were obtained using low-dose digital technique. This examination was reviewed with [...] Jr., D.ODemi 12/10/2024 11:10 AM Dictation Location: [facility] Dictated By: Hammad Thompson Jr DO 12/10/24 1109 Signed By: 12/10/24 1110 [facility] POCT Protime-INR, fingerstic k docked deviceon 11-22-2024 Interpretation and review of laboratory results Normal [facility] Microscopic observation Cyto stain Nom (Cvx) 2.3 [facility] Patient here for INR INR- 2.3 PT- 25.3 Taking 2mg daily [facility] DEXA BONE DENSITYon 10-27-19 DEXA BONE DENSITY Examination: DEXA CLAUDIO NE DENSITY Clinical History: eval, asymptomatic menopausal state Technique: Bone density study was performed. T score values for the lumbar spine, right femoral neck and left femoral neck were obtained. Comparison: 09/30/2022. Findings: Value for the lumbar spine from L1-L4 is -2.2. Value for the right femoral neck is -2.1. Value for the left femoral neck is -2.5. Findings are compatible with borderline severe osteopenia/osteoporosis with borderline moderate to high/high increased fracture risk. Similar values were noted previously. IMPRESSION: Impression: Findings compatible with borderline severe osteopenia/osteoporosis with borderline moderate to high/high increased fracture risk. Similar values were noted previously. ELECTRONICALLY SIGNED BY: Rafael Holbrook M.D. Normal Not Available US renal BIon 10-11-2024 US renal BI [facility] Main [address] [address] Ultrasound Report Signed Patient: Rebecca Herrera MR#: [id number] : 1950 Acct:[id number] Age/Sex: 73 / F ADM Date: 10/11/24 Loc: [place] Room: Type: REG CLI Attending Dr: Helena Maxwell PA-C Ordering Provider: Helena Maxwell PA-C Date of Service: 10/11/24 US/US renal BI: URETERAL STONE Copies to: Helena Maxwell PA-C Bilateral Renal Ultrasound HISTORY: History of kidney stones COMPARISON: None RIGHT kidney measures 11.1 cm. LEFT kidney measures 10.5 cm. Hydronephrosis: None RENAL STONE: No shadowing renal calculus is seen. RENAL LESIONS: No renal lesion identified. URINARY BLADDER: Bilateral ureteral jets identified. REPRODUCTIVE STRUCTURES Not assessed US/US renal BI IMPRESSION : No hydronephrosis. Impression dictated by: Steven Dos Santos M.D.10/11/2024 4:51 PM Dictation Location: [place] [address] Tech: Geraldine Briggs Transcribed By: YASEMIN 10/11/241650 Dictated By: Steven Dos Santos DO 10/11/241649 Signed By: 10/11/241650 Normal [facility] X-ray reportOrdered By: Alon Dos Santos on 10-11-2024 Study report [facility] Main [address] [address] XRay Report Signed Patient: Rebecca Herrera MR#: [id number] : 1950 Acct:[id number] Age/Sex: 73 / F ADM Date: 5 Loc: [place] Room: Type: REG CLI Attending Dr: Helena Maxwell PA-C Copies to: Helena Maxwell PA-C~ Ordering Provider: Helena Maxwell PA-C Date of Service: 10/11/24 XR/XR KUB: URETERAL STONE KUB COMPARISON: None HISTORY: Follow-up kidney stone THORAX: Lung bases unremarkable. FREE AIR: Supine position limits assessment BOWEL: No gaseous intestinal distention. STOOL: No significant stool RENAL STONES: No significant stones present. VASCULAR CALCIFICATIONS: Unremarkable SOFT TISSUE: Unremarkable BONES: Degenerative change POSTSURGICAL CHANGES: IVC filter unchanged XR/XR KUB IMPRESSION: No visible stones Impression dictated by: Steven Dos Santos M.D.10/11/2024 4:55 PM Dictation Location: [facility] Transcribed By: YASEMIN 10/11/241654 Dictated By: Steven Dos Santos DO 10/11/241654 Signed By: 10/11/241654 [facility] XR KUBon 10-11-2024 XR KUB [facility] [place] [address] XRay Report Signed Patient: Rebecca Herrera MR#: [id number] : 1950 Acct:[id number] Age/Sex: 73 / F ADM Date: 10/11/24 Loc: Room: Type: [facility] Attending Dr: Helena Maxwell PA-C Copies to: Helena Maxwell PA-C Ordering Provider: Helena Maxwell PA-C Date of Service: 10/11/24 XR/XR KUB: URETERAL STONE KUB COMPARISON: None HISTORY: Follow-up kidney stone THORAX: Lung bases unremarkable. FREE AIR: Supine position limits assessment BOWEL: No gaseous intestinal distention. STOOL: No significant stool RENAL STONES: No significant stones present. VASCULAR CALCIFICATIONS: Unremarkable SOFT TISSUE: Unremarkable BONES: Degenerative change POSTSURGICAL CHANGES: IVC filter unchanged XR/XR KUB IMPRESSION: No visible stones Impression dictated by: Steven Dos Santos M.D.10/11/2024 4:55 PM Dictation Location: [facility] Transcribed By: YASEMIN 10/11/241654 Dictated By: Steven Dos Santos DO 10/11/241654 Signed By: 10/11/241654 [facility] Ambulatory Visit Summaryon 0 10-04-2024 Ambulatory Visit Summary Ambulatory Visit Summary [place] :1950 Visit Date:10/04/2024 Ambulatory Visit Instructions Your Diagnosis Ureteral stone Your Care Team Attending Physician - HELENA MAXWELL PA-C Primary Care Physician - RADHA MCKEON MD This Is Your Medications List buPROPion (buPROPion 300 mg/24 hours ER Tab) ergocalciferol (Vitamin D2 50,000 intl units (1.25 mg) oral capsule) famotidine (famotidine 20 mg Tab) hydroxychloroquine (Plaquenil) lisinopril paroxetine (Paxil 20 mg Tab) warfarin (warfarin 2 mg Tab) Procedures Performed Appendectomy, section, Cholecystectomy, Colonoscopy, Correction of hammer toe, EGD - esophagogastroduodenoscopy , Gastric bypass, History of left knee replacement, Polypectomy, Release of trigger finger, Tubal ligation. Discharge Vitals Heart Rate (Peripheral) 50 Respiratory Rate 18 Blood Pressure 115/59 Height 162 cm Height 64 in Weight 75.3 kg Weight 166.008 lb BMI 28.69 Medications What How Much When Instructions Unchanged buPROPion (buPROPion 300 mg/ 24 hours ER Tab) 1 Tablets By Mouth Every day Unchanged ergocalciferol (Vitamin D2 50,000 intl units (1.25 mg) oral capsule) 1 Capsules By Mouth Every other day Unchanged famotidine (famotidine 20 mg Tab) 1 Tablets By Mouth Every day Unchanged hydroxychloroquine (Plaquenil) 200 Milligram By Mouth 2 times a day Unchanged lisinopril 2.5 Milligram By Mouth Every day Unchanged paroxetine (Paxil 20 mg Tab) 1 Tablets By Mouth Every day Unchanged warfarin (warfarin 2 mg Tab) 1 Tablets By Mouth Every day Allergies No Known Medication Allergies Problems Ongoing [...] you for choosing us for your care. Normal [facility] Urology Office/Clinic Noteon 10-04-2024 Urology Office/Clinic Note Urology Office/Clinic Note Chief Complaint f/u with labs HPI Staff 73yr old female pt here for 3-4mo f/u to met workup. She has been straining her urine but has not seen any stones. Denies all urinary symptoms. Previous Dx: ureteral stone, kidney stone, history of renal stone *started Flomax 0.4mg at last OV Review of Systems PHQ Score Initial Depression Screen Score: 0 SCORE no fever, chills, malaise, myalgia. no rash/lesions. no chest pain, palpitations, or SOB. no abdominal pain, nausea, vomiting. Physical Exam Vitals & Measurements HR: 50(Peripheral) RR: 18 BP: 115/59 HT: 64 in HT: 162 cm WT: 75.3 kg WT: 166.008 lb BMI: 28.69 General: nontoxic, NAD Mouth: moist mucosa Lungs: normal respiratory effort Cardio: regular rate, good distal perfusion Abdomen: nondistended Neurologic: Grossly normal Skin: No rashes or suspicious lesions Assessment/Plan BBSQ 11 very good control. UA shows small leuks only. Denies UTI sx so no indication to send for Cx. 1. Ureteral stone (N20.1: Calculus of ureter) 5mm proximal and 9mm distal ureteral stones December 2023. Neg IVP 01/01/24 confirmed she passed both. No R-sided stones on CT. Pt's 4th or 5th stone event. Had recent 24hr urine collection ordered by her block hand. Volume was fair 1.7L Unfortunately this did not include most of what we assess (Calcium, Uric Acid, Oxalate, Phosphorus, Sodium, Citrate, Magnesium). I called [facility] lab but they are unable to add these tests at this time. Pt would need to redo entire 24hr collection. Pt also recently had blood work ordered by other providers showing nl BUN/Cube Cutter. However this did not include Ca, Na, Cl, Phos, CO2, PTH, Uric Acid. So pt would need redraw of blood. Pt would like to avoid this if possible. Therefore we will check an updated KUB/LISSET. If no new stone formation, then she will continue working on increasing fluid intake (goal 2.5-3L output/24hrs) and f/u in 1 yr. If imaging shows new large stones, then I recommend she complete metabolic eval at this time. She agrees w this plan. Ordered: Body Mass Index (BMI) documented 3008F Current tobacco non-user 1036F Depression Screening Negative 3352F E&M of Est. Patient Low 20-29 Min 85181 Influenza immunization status assessed 1030F Medication list documented in medical record 1159F Most recent diastolic blood pressure <80 mm Hg 3078F Patient screen for fall risk: no falls in last year or 1 fall with no injury in last year 1101F Review of all meds by a prescribing practitioner or clinical pharmacist documented in EHR 1160F Systolic BP <130 mm Hg (Most Recent) 3074F Urnls Dip Stick Auto w/o Microscopy POC 56993 US Renal XR Abdomen 1 View Follow-up With When Contact Information NANCY BILL, HELENA Borjas, URL [address] [place] [address] [employer] (1) Additional Instructions: pending results of imaging/testing, will call with next steps Patient Education Kidney Stones, [id number] Problem List/Past Medical History Ongoing Anxiety Aortic aneurysm Arthritis Bradycardia DVT (deep venous thrombosis) Elevated parathyroid hormone Factor V Leiden GERD (gastroesophageal reflux disease) History of renal stone Iron deficiency Kidney stone Lichen sclerosus Mass of left parotid gland Murmur EVELYNE (obstructive sleep apnea) Ureteral stone Historical No qualifying data Procedure/Surgical History Appendectomy, section, Cholecystectomy, Colonoscopy, Correction of hammer toe, EGD - esophagogastroduodenoscopy , Gastric bypass, History of left knee replacement, Polypectomy, Release of trigger finger, Tubal ligation. Medications buPROPion 300 mg/24 hours ER Tab, 300 mg= 1 tab(s), Oral, Daily famotidine 20 mg Tab, 20 mg= 1 tab(s), Oral, Daily lisinopril, 2.5 mg, Oral, Daily Paxil 20 mg Tab, 20 mg= 1 tab(s), Oral, Daily Plaquenil, 200 mg, Oral, BID Vitamin D2 50,000 intl units (1.25 mg) oral capsule, [address] International_Unit= 1 cap(s), Oral, Every other day warfarin 2 mg Tab, 2 mg= 1 tab(s), Oral, Daily Allergies No Known Medication Allergies 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 Tobacco Never (less than 100 in lifetime) Tobacco Use:. Never Smokeless Tobacco Use:., 10/04/2024 Family History Alzheimer disease: Father and Sister. Lung cancer: Father. Ovarian cancer: Mother. Immunizations Vaccine Date Status influenza virus vaccine, inactivated 05/10/2024 Recorded influenza virus vaccine, inactivated 04/05/2024 Recorded influenza virus vaccine, inactivated 04/20/2023 Recorded influenza virus vaccine, inactivated 08/29/2022 Recorded SARS-CoV-2 (COVID-19) mRNA BNT-162b2 vax 08/06/2021 Recorded influenza virus vaccine, inactivated 05/08/2021 Recorded SARS-CoV-2 (COVID-19) mRNA BNT-162b2 vax 11/21/2020 Recorded SARS-CoV-2 (COVID-19) mRNA BNT-162b2 vax 10/30/2020 Recorded influenza virus vaccine, inactivated 05/18/2020 Recorded zoster vaccine, inactivated 07/18/2019 Recorded pneumococca (more content not included)... Normal [facility] Comment on above: Result Comment: Elec tronically Signed By: HELENA MAXWELL PA-C\.br\Date and Time Signed: 10/04/24 15:50 EST CREATININE 24 HOUR URINEon 0 10-02-2024 CREATININE 24 HOUR URINE 860.34 [facility] CREATININE URINE RANDOM 48.47 mg/dL 20.00 - 300.00 mg/dL [facility] TOTAL VOLUME 24 HOUR URINE 1775 mL/24hr [facility] Laboratory - Cytologyon 09-05 Microscopic observation Cyto stain Nom (Cvx) 2.3 [facility] No Panel Informationon 09-30 Interpretation and review of laboratory results Normal [facility] INR- 2.3 PT-23.6 2mg Daily [facility] Alanine aminotransferase [En zymatic activity/volume] in Serum or PlasmaOrdered By: Santana Williamson on 09-27-2024 ALT [Catalytic activity/Vol] Alanine aminotransferase [Enzymatic activity/volume] in Serum or Plasma [facility] Albumin [Mass/volume] in Ser um or Plasma by Bromocresol green (BCG) dye binding methoOrdered By: Santana Williamosn on 09-27-2024 Albumin BCG dye [Mass/Vol] Albumin [Mass/volume] in Serum or Plasma by Bromocresol green (BCG) dye binding metho 3.5-5.7 [facility] Alkaline phosphatase [Enzyma tic activity/volume] in Serum or PlasmaOrdered By: Santana Williamson on 09-27-2024 ALP [Catalytic activity/Vol] Alkaline phosphatase [Enzymatic activity/volume] in Serum or Plasma 34-104 [facility] Appearance of UrineOrdered B y: Santana Williamson on 09-27-2024 Appearance (U) Urine appearance Abnormal [facility] Aspartate aminotransferase [ Enzymatic activity/volume] in Serum or PlasmaOrdered By: Santana Williamson on 09-27-2024 AST [Catalytic activity/Vol] Aspartate aminotransferase [Enzymatic activity/volume] in Serum or Plasma High 13-39 [facility] Bacteria [Presence] in Urine by AutomatedOrdered By: Santana Williamson on 09-27-2024 Bacteria Auto Ql (U) Bacteria [Presence] in Urine by Automated None Seen [facility] Basophils Auto (Bld) [#/Vol] Ordered By: Santana Williamson on 09-27-2024 Basophils (Bld) [#/Vol] Automated basophil count 0.0-0.2 [facility] Basophils/100 WBC Auto (Bld) Ordered By: Santana Williamson on 09-27-2024 Basophils/100 WBC (Bld) Automated basophil % . [facility] Bilirubin Test strip Ql (U)O rdered By: Santana Williamson on 09-27-2024 Bilirubin Ql (U) Bilirubin.total [Pre sence] in Urine by Test strip Negative [facility] Bilirubin.direct [Mass/volum e] in Serum or PlasmaOrdered By: Santana Williamson on 09-27-2024 Bilirubin.direct [Mass/Vol] Bilirubin.direct [Mass/volume] in Serum or Plasma 0.03-0.18 [facility] Bilirubin.total [Mass/volume ] in Serum or PlasmaOrdered By: Santana Williamson on 09-27-2024 Bilirubin [Mass/Vol] Bilirubin.total [Mass/volume] in Serum or Plasma 0.3-1.0 [facility] C reactive protein [Mass/vol ume] in Serum or PlasmaOrdered By: Santana Williamson on 09-27-2024 CRP [Mass/Vol] C reactive protein [Mass/volume] in Serum or Plasma 0.0-0.5 [facility] C-Reactive Proteinon 025 CRP [Mass/Vol] mg/L Normal 0.0-0.5 [facility] Comment on above: Result Comment: PERF ORMED BY: [facility] [address] [place] [address] PATHOLOGIST PROSTHETIC AIDE LAURA GLOVER M.D. Performed By: #### C REAT, ESR, CBC, ADDONUAPLUS, MG, CRP, HEPATIC ####[place] [id number] [address] Calcium oxalate crystals [Pr esence] in Urine by Computer assisted methodOrdered By: Santana Williamson on 09-27-2024 Calcium oxalate crystals Computer assisted Ql (U) Calcium oxalate crystals [Presence] in Urine by Computer assisted method [facility] Color Auto (U)Ordered By: Jacki Williamson on 09-27-2024 Color (U) Color of Urine by Auto Yellow Fi [facility] Complete Blood Count Auto Di ffon 09-27-2024 Basophils (Bld) [#/Vol] 0.0 10*3/uL Normal 0.0-0.2 [facility] Comment on above: Performed By: #### C REAT, ESR, CBC, ADDONUAPLUS, MG, CRP, HEPATIC ####[place] [id number] [place] [address] [place] Basophils/100 WBC (Bld) 0.9 % Normal . [facility] Comment on above: Performed By: #### C REAT, ESR, CBC, ADDONUAPLUS, MG, CRP, HEPATIC ####[place] [id number] [place] [address] [place] Eosinophils (Bld) [#/Vol] 0.2 10*3/uL Normal 0.0-0.45 [facility] Comment on above: Performed By: #### C REAT, ESR, CBC, ADDONUAPLUS, MG, CRP, HEPATIC ####[place] [id number] [place] [id number] [place] Eosinophils/100 WBC (Bld) 3.9 % Normal . [facility] Comment on above: Performed By: #### C REAT, ESR, CBC, ADDONUAPLUS, MG, CRP, HEPATIC ####[address] Erythrocyte distribution width (RBC) [Ratio] 13.6 % Normal 11.9-15.3 [facility] Comment on above: Performed By: #### C REAT, ESR, CBC, ADDONUAPLUS, MG, CRP, HEPATIC ####[address] Hematocrit (Bld) [Volume fraction] 38.1 % Normal 34.0-46.4 [facility] Comment on above: Performed By: #### C REAT, ESR, CBC, ADDONUAPLUS, MG, CRP, HEPATIC ####[address] Hemoglobin (Bld) [Mass/Vol] 13.0 g/dL Normal 11.8-15.4 [facility] Comment on above: Performed By: #### C REAT, ESR, CBC, ADDONUAPLUS, MG, CRP, HEPATIC ####[address] Lymphocytes (Bld) [#/Vol] 1.1 10*3/uL Normal 1.00-4.8 [facility] Comment on above: Performed By: #### C REAT, ESR, CBC, ADDONUAPLUS, MG, CRP, HEPATIC ####[address] Lymphocytes/100 WBC (Bld) 25.1 % Normal . [facility] Comment on above: Performed By: #### C REAT, ESR, CBC, ADDONUAPLUS, MG, CRP, HEPATIC ####[address] MCH (RBC) [Entitic mass] 32.4 pg Normal 24.7-34.3 [facility] Comment on above: Performed By: #### C REAT, ESR, CBC, ADDONUAPLUS, MG, CRP, HEPATIC ####[address] MCV (RBC) [Entitic vol] 95.0 fL Normal 80-100 [facility] Comment on above: Performed By: #### C REAT, ESR, CBC, ADDONUAPLUS, MG, CRP, HEPATIC ####[address] Mean Corpuscular HGB Conc 34.1 g/dL Normal 32.0-35.0 [facility] Comment on above: Performed By: #### C REAT, ESR, CBC, ADDONUAPLUS, MG, CRP, HEPATIC ####[address] Monocytes (Bld) [#/Vol] 0.3 10*3/uL Normal 0.0-0.8 [facility] Comment on above: Performed By: #### C REAT, ESR, CBC, ADDONUAPLUS, MG, CRP, HEPATIC ####[address] Monocytes/100 WBC (Bld) 7.6 % Normal . [facility] Comment on above: Performed By: #### C REAT, ESR, CBC, ADDONUAPLUS, MG, CRP, HEPATIC ####[address] Neutrophils (Bld) [#/Vol] 2.7 10*3/uL Normal 1.8-7.7 [facility] Comment on above: Performed By: #### C REAT, ESR, CBC, ADDONUAPLUS, MG, CRP, HEPATIC ####[address] Neutrophils/100 WBC (Bld) 62.5 % Normal . [facility] Comment on above: Performed By: #### C REAT, ESR, CBC, ADDONUAPLUS, MG, CRP, HEPATIC ####[address] NRBC% 0.0 /100{WBC} Normal 0-0.5 [facility] Comment on above: Performed By: #### C REAT, ESR, CBC, ADDONUAPLUS, MG, CRP, HEPATIC ####[address] Platelet mean volume (Bld) [Entitic vol] 10.1 fL Normal 6.3-10.7 [facility] Comment on above: Performed By: #### C REAT, ESR, CBC, ADDONUAPLUS, MG, CRP, HEPATIC ####[address] Platelets (Bld) [#/Vol] 157 10*3/uL Normal 150-450 [facility] Comment on above: Performed By: #### C REAT, ESR, CBC, ADDONUAPLUS, MG, CRP, HEPATIC ####[address] RBC (Bld) [#/Vol] 4.01 10*6/uL Normal 3.60-5.00 [facility] Comment on above: Performed By: #### C REAT, ESR, CBC, ADDONUAPLUS, MG, CRP, HEPATIC ####[address] WBC (Bld) [#/Vol] 4.4 10*3/uL Normal 3.8-11.6 [facility] Comment on above: Performed By: #### C REAT, ESR, CBC, ADDONUAPLUS, MG, CRP, HEPATIC ####[address] Creatinineon 09-27-2024 Creatinine [Mass/Vol] 0.58 mg/dL Low 0.60-1.20 [facility] Comment on above: Performed By: #### C REAT, ESR, CBC, ADDONUAPLUS, MG, CRP, HEPATIC ####[address] GFR/1.73 sq M.predicted MDRD (S/P/Bld) [Vol rate/Area] mL/min/{1.73_m2} Normal [facility] Comment on above: Performed By: #### C REAT, ESR, CBC, ADDONUAPLUS, MG, CRP, HEPATIC ####[facility] [id number] Creatinine [Mass/volume] in Serum or PlasmaOrdered By: Santana Williamson on 09-27-2024 Creatinine [Mass/Vol] Creatinine [Mass/v olume] in Serum or Plasma Low 0.60-1.20 [facility] Dipstick and Microscopicon 0 09-27-2024 Appearance (U) Cloudy Critically abnormal Clear [facility] Comment on above: Order Comment: Name Collection Type:: Clean-Voided Midstream Performed By: #### C REAT, ESR, CBC, ADDONUAPLUS, MG, CRP, HEPATIC #### [facility] [address] Bacteria,Urine None Seen Normal None Seen [facility] Comment on above: Order Comment: Name Collection Type:: Clean-Voided Midstream Performed By: #### C REAT, ESR, CBC, ADDONUAPLUS, MG, CRP, HEPATIC #### [facility] [address] [place] [address] [place] Bilirubin,Urine Negative Normal Negative [facility] Comment on above: Order Comment: Name Collection Type:: Clean-Voided Midstream Performed By: #### C REAT, ESR, CBC, ADDONUAPLUS, MG, CRP, HEPATIC #### [facility] [address] [place] [address] [place] Calcium Oxalate Crystals,Urine 4+ Normal [facility] Comment on above: Order Comment: Name Collection Type:: Clean-Voided Midstream Performed By: #### C REAT, ESR, CBC, ADDONUAPLUS, MG, CRP, HEPATIC #### [facility] [address] [place] [address] [place] Color (U) Light-Yellow Normal Yellow [facility] Comment on above: Order Comment: Name Collection Type:: Clean-Voided Midstream Performed By: #### C REAT, ESR, CBC, ADDONUAPLUS, MG, CRP, HEPATIC #### [facility] [address] [place] [address] Glucose Ql (U) Normal Normal Normal [facility] Comment on above: Order Comment: Name Collection Type:: Clean-Voided Midstream Performed By: #### C REAT, ESR, CBC, ADDONUAPLUS, MG, CRP, HEPATIC #### [address] Hyaline Casts,Urine None Normal 0-8 [facility] Comment on above: Order Comment: Name Collection Type:: Clean-Voided Midstream Performed By: #### C REAT, ESR, CBC, ADDONUAPLUS, MG, CRP, HEPATIC #### [address] Ketones Ql (U) Negative Normal Negative [facility] Comment on above: Order Comment: Name Collection Type:: Clean-Voided Midstream Performed By: #### C REAT, ESR, CBC, ADDONUAPLUS, MG, CRP, HEPATIC #### [address] Leukocyte esterase Test strip Ql (U) Negative Normal Negative [facility] Comment on above: Order Comment: Name Collection Type:: Clean-Voided Midstream Performed By: #### C REAT, ESR, CBC, ADDONUAPLUS, MG, CRP, HEPATIC #### [address] Mucus,Urine Rare Normal [facility] Comment on above: Order Comment: Name Collection Type:: Clean-Voided Midstream Result Comment: PERF ORMED BY: [place] [address] PATHOLOGIST PROSTHETIC AIDE LAURA GLOVER M.D. Performed By: #### C REAT, ESR, CBC, ADDONUAPLUS, MG, CRP, HEPATIC #### [address] Nitrite,Urine Negative Normal Negative [facility] Comment on above: Order Comment: Name Collection Type:: Clean-Voided Midstream Performed By: #### C REAT, ESR, CBC, ADDONUAPLUS, MG, CRP, HEPATIC #### [address] Occult Blood,Urine Negative Normal Negative [facility] Comment on above: Order Comment: Name Collection Type:: Clean-Voided Midstream Performed By: #### C REAT, ESR, CBC, ADDONUAPLUS, MG, CRP, HEPATIC #### [address] pH (U) 5.5 [pH] Normal 5.0-9.0 [facility] Comment on above: Order Comment: Name Collection Type:: Clean-Voided Midstream Performed By: #### C REAT, ESR, CBC, ADDONUAPLUS, MG, CRP, HEPATIC #### [address] Protein,Urine Negative Normal Negative [facility] Comment on above: Order Comment: Name Collection Type:: Clean-Voided Midstream Performed By: #### C REAT, ESR, CBC, ADDONUAPLUS, MG, CRP, HEPATIC #### [address] RBC,Urine 3-4 Normal 0-4 [facility] Comment on above: Order Comment: Name Collection Type:: Clean-Voided Midstream Performed By: #### C REAT, ESR, CBC, ADDONUAPLUS, MG, CRP, HEPATIC #### [address] Specificy [place],Urine 1.014 Normal 1.001-1.03 0 [facility] Comment on above: Order Comment: Name Collection Type:: Clean-Voided Midstream Performed By: #### C REAT, ESR, CBC, ADDONUAPLUS, MG, CRP, HEPATIC #### [address] Urobilinogen,Urine Normal Normal Normal [facility] Comment on above: Order Comment: Name Collection Type:: Clean-Voided Midstream Performed By: #### C REAT, ESR, CBC, ADDONUAPLUS, MG, CRP, HEPATIC #### [address] WBC,Urine 3-4 Normal 0-4 [facility] Comment on above: Order Comment: Name Collection Type:: Clean-Voided Midstream Performed By: #### C REAT, ESR, CBC, ADDONUAPLUS, MG, CRP, HEPATIC #### [facility] [address] Eosinophils Auto (Bld) [#/Vo l]Ordered By: Santana Williamson on 09-27-2024 Eosinophils (Bld) [#/Vol] Automated eosinophil count 0.0-0.45 [facility] Eosinophils/100 WBC Auto (Bl d)Ordered By: Santana Williamson on 09-27-2024 Eosinophils/100 WBC (Bld) Automated eosinophil % . [facility] Epithelial cells.squamous [# /area] in Urine sediment by Automated countOrdered By: Santana Williamson on 09-27-2024 Epithelial cells.squamous Auto (Urine sed) [#/Area] Epithelial cells.squamous [#/area] in Urine sediment by Automated count [facility] Erythrocyte Sedimentation Ra francie 09-27-2024 ESR (Bld) [Velocity] 7 mm/h Normal 0-29 [facility] Comment on above: Result Comment: PERF ORMED BY: [facility] [address] [place] [address] PATHOLOGIST PROSTHETIC AIDE LAURA GLOVER M.D. Performed By: #### C REAT, ESR, CBC, ADDONUAPLUS, MG, CRP, HEPATIC ####[facility] [id number] Erythrocyte distribution wid th Auto (RBC) [Ratio]Ordered By: Santana Williamson on 09-27-2024 Erythrocyte distribution width (RBC) [Ratio] Erythrocyte distribution width [Ratio] by Automated count 11.9-15.3 [facility] Erythrocyte sedimentation ra te by Photometric methodOrdered By: Santana Williamson on 09-27-2024 ESR Photometric method (Bld) [Velocity] Erythrocyte sedimentation rate by Photometric method 0-29 [facility] Erythrocytes [#/area] in Uri ne sediment by Automated countOrdered By: Santana Williamson on 09-27-2024 RBC Auto (Urine sed) [#/Area] Erythrocytes [#/area] in Urine sediment by Automated count 0-4 [facility] Globulin Calc (S) [Mass/Vol] Ordered By: Santana Williamson on 09-27-2024 Globulin (S) [Mass/Vol] Serum globulin measurement by calculation (mass/volume) [facility] Glucose [Mass/volume] in Uri ne by Test stripOrdered By: Santana Williamson on 09-27-2024 Glucose Test strip (U) [Mass/Vol] Glucose [Mass/volume] in Urine by Test strip Normal [facility] Hematocrit Auto (Bld) [Volum e fraction]Ordered By: Santana Williamson on 09-27-2024 Hematocrit (Bld) [Volume fraction] Hematocrit [Volume Fraction] of Blood by Automated count 34.0-46.4 [facility] Hemoglobin Test strip Ql (U) Ordered By: Santana Williamson on 09-27-2024 Hemoglobin Ql (U) Hemoglobin [Presence ] in Urine by Test strip Negative [facility] Hemoglobin [Mass/volume] in BloodOrdered By: Santana Williamson on 09-27-2024 Hemoglobin (Bld) [Mass/Vol] Hemoglobin [Mass/volume] in Blood 11.8-15.4 [facility] Hepatic Panelon 09-27-2024 Albumin [Mass/Vol] 3.5 g/dL Normal 3.5-5.7 [facility] Comment on above: Performed By: #### C REAT, ESR, CBC, ADDONUAPLUS, MG, CRP, HEPATIC #### [facility] [address] Albumin/Globulin [Mass ratio] 1.7 {ratio} Normal [facility] Comment on above: Performed By: #### C REAT, ESR, CBC, ADDONUAPLUS, MG, CRP, HEPATIC #### [facility] [address] ALP [Catalytic activity/Vol] 95 U/L Normal 34-104 [facility] Comment on above: Performed By: #### C REAT, ESR, CBC, ADDONUAPLUS, MG, CRP, HEPATIC #### [address] ALT [Catalytic activity/Vol] 49 U/L Normal 7-52 [facility] Comment on above: Performed By: #### C REAT, ESR, CBC, ADDONUAPLUS, MG, CRP, HEPATIC #### [address] AST [Catalytic activity/Vol] 41 U/L High 13-39 [facility] Comment on above: Performed By: #### C REAT, ESR, CBC, ADDONUAPLUS, MG, CRP, HEPATIC #### [address] Bilirubin [Mass/Vol] 0.4 mg/dL Normal 0.3-1.0 [facility] Comment on above: Performed By: #### C REAT, ESR, CBC, ADDONUAPLUS, MG, CRP, HEPATIC #### [address] Bilirubin,Indirect 0.3 mg/dL Normal [facility] Comment on above: Performed By: #### C REAT, ESR, CBC, ADDONUAPLUS, MG, CRP, HEPATIC #### [address] Bilirubin.indirect [Mass/Vol] 0.10 mg/dL Normal 0.03-0.18 [facility] Comment on above: Performed By: #### C REAT, ESR, CBC, ADDONUAPLUS, MG, CRP, HEPATIC #### [address] Globulin (S) [Mass/Vol] 2.1 g/dL Normal [facility] Comment on above: Performed By: #### C REAT, ESR, CBC, ADDONUAPLUS, MG, CRP, HEPATIC #### [address] Protein [Mass/Vol] 5.6 g/dL Low 6.4-8.9 [facility] Comment on above: Performed By: #### C REAT, ESR, CBC, ADDONUAPLUS, MG, CRP, HEPATIC #### [address] [place] [address] [facility] Hyaline casts [#/area] in Ur ine sediment by Automated countOrdered By: Santana Williamson on 09-27-2024 Hyaline casts Auto (Urine sed) [#/Area] Hyaline casts [#/area] in Urine sediment by Automated count 0-8 [facility] Ketones Test strip Ql (U)Ord ered By: Santana Williamson on 09-27-2024 Ketones Ql (U) Ketones [Presence] i n Urine by Test strip Negative [facility] Leukocyte esterase [Presence ] in Urine by Test stripOrdered By: Santana Williamson on 09-27-2024 Leukocyte esterase Test strip Ql (U) Leukocyte esterase [Presence] in Urine by Test strip Negative [facility] Leukocytes [#/area] in Urine sediment by Automated countOrdered By: Santana Williamson on 09-27-2024 WBC Auto (Urine sed) [#/Area] Leukocytes [#/area] in Urine sediment by Automated count 0-4 [facility] Leukocytes [#/volume] correc zee for nucleated erythrocytes in Blood by Automated counOrdered By: Santana Williamson on 09-27-2024 WBC corrected for nucl RBC Auto (Bld) [#/Vol] Leukocytes [#/volume] corrected for nucleated erythrocytes in Blood by Automated coun 3.8-11.6 [facility] Lymphocytes Auto (Bld) [#/Vo l]Ordered By: Santana Williamson on 09-27-2024 Lymphocytes (Bld) [#/Vol] Lymphocytes [#/volume] in Blood by Automated count 1.00-4.8 [facility] Lymphocytes/100 WBC Auto (Bl d)Ordered By: Santana Williamson on 09-27-2024 Lymphocytes/100 WBC (Bld) Lymphocytes/100 leukocytes in Blood by Automated count . [facility] MCH Auto (RBC) [Entitic mass ]Ordered By: Santana Williamson on 09-27-2024 MCH (RBC) [Entitic mass] MCH [Entitic mass] by Automated count 24.7-34.3 [facility] MCHC Auto (RBC) [Mass/Vol]Or dered By: Santana Williamson on 09-27-2024 MCHC (RBC) [Mass/Vol] MCHC [Mass/volume] by Automated count 32.0-35.0 [facility] MCV Auto (RBC) [Entitic vol] Ordered By: Santana Williamson on 09-27-2024 MCV (RBC) [Entitic vol] MCV [Entitic volume] by Automated count 80-100 [facility] Magnesiumon 09-27-2024 Magnesium [Mass/Vol] 2.0 mg/dL Normal 1.9-2.7 [facility] Comment on above: Performed By: #### C REAT, ESR, CBC, ADDONUAPLUS, MG, CRP, HEPATIC ####[facility] [id number] [place] [id number] [facility] Magnesium [Mass/volume] in S maurilio or PlasmaOrdered By: Santana Williamson on 09-27-2024 Magnesium [Mass/Vol] Magnesium [Mass/vol ume] in Serum or Plasma 1.9-2.7 [facility] Monocytes Auto (Bld) [#/Vol] Ordered By: Santana Williamson on 09-27-2024 Monocytes (Bld) [#/Vol] Automated blood monocyte count 0.0-0.8 [facility] Monocytes/100 WBC Auto (Bld) Ordered By: Santana Williamson on 09-27-2024 Monocytes/100 WBC (Bld) Automated monocyte % . [facility] Mucus [Presence] in Urine by AutomatedOrdered By: Santana Williamson on 09-27-2024 Mucus Auto Ql (U) Mucus [Presence] in Urine by Automated [facility] Neutrophils Auto (Bld) [#/Vo l]Ordered By: Santana Williamson on 09-27-2024 Neutrophils (Bld) [#/Vol] Neutrophils [#/volume] in Blood by Automated count 1.8-7.7 [facility] Neutrophils/100 WBC Auto (Bl d)Ordered By: Santana Williamson on 09-27-2024 Neutrophils/100 WBC (Bld) Automated neutrophil % . [facility] Nitrite Test strip Ql (U)Ord ered By: Santana Williamson on 09-27-2024 Nitrite Ql (U) Nitrite [Presence] i n Urine by Test strip Negative [facility] No Panel InformationOrdered By: Santana Williamson on 09-27-2024 Estimated GFR (CKD-EPI) > 60.0 mL/Min [facility] Creatinine Clearance (Chem N/A [facility] Nucleated erythrocytes [Pres ence] in Blood by Automated countOrdered By: Santana Williamson on 09-27-2024 Nucleated RBC Auto Ql (Bld) Nucleated erythrocytes [Presence] in Blood by Automated count 0-0.5 [facility] Platelet mean volume Auto (B ld) [Entitic vol]Ordered By: Santana Williamson on 09-27-2024 Platelet mean volume (Bld) [Entitic vol] Platelet mean volume [Entitic volume] in Blood by Automated count 6.3-10.7 [facility] Platelets Auto (Bld) [#/Vol] Ordered By: Santana Williamson on 09-27-2024 Platelets (Bld) [#/Vol] Platelets [#/volume] in Blood by Automated count 150-450 [facility] Protein Test strip (U) [Mass /Vol]Ordered By: Santana Williamson on 09-27-2024 Protein (U) [Mass/Vol] Protein [Mass/vol ume] in Urine by Test strip Negative [facility] Protein [Mass/volume] in Ser um or PlasmaOrdered By: Santana Williamson on 09-27-2024 Protein [Mass/Vol] Protein [Mass/volume ] in Serum or Plasma Low 6.4-8.9 [facility] RBC Auto (Bld) [#/Vol]Ordere d By: Santana Williamson on 09-27-2024 RBC (Bld) [#/Vol] Erythrocytes [#/volu me] in Blood by Automated count 3.60-5.00 [facility] Serum or plasma albumin/glob ulin mass ratioOrdered By: Santana Williamson on 09-27-2024 Albumin/Globulin [Mass ratio] Serum or plasma albumin/globulin mass ratio [facility] Serum or plasma non-glucuron idated bilirubin measurement (mass/volume)Ordered By: Santana Williamson on 09-27-2024 Bilirubin.indirect [Mass/Vol] Serum or plasma non-glucuronidated bilirubin measurement (mass/volume) [facility] Specific gravity Test strip (U) [Rel density]Ordered By: Santana Williamson on 09-27-2024 Specific gravity (U) [Rel density] Specific gravity of Urine by Test strip 1.001-1.03 0 [facility] Urobilinogen Test strip (U) [Mass/Vol]Ordered By: Santana Williamson on 09-27-2024 Urobilinogen (U) [Mass/Vol] Urobilinogen [Mass/volume] in Urine by Test strip Normal [facility] WBC Auto (Bld) [#/Vol]Ordere d By: Santana Williamson on 09-27-2024 WBC (Bld) [#/Vol] Leukocytes [#/volume ] in Blood by Automated count 3.8-11.6 [facility] pH Test strip (U)Ordered By: Santana Williamson on 09-27-2024 pH (U) pH of Urine by Test strip 5.0-9.0 [facility] INR Coag (Bld) [Relative eden e]on 09-06-2024 INR 3.1 [facility] COVID Cepheidon 08-03-2024 SARS-CoV-2 (COVID-19) RNA RUDY+probe Ql (Unsp spec) COVID Cepid [facility] - Microbiology an d Antimicrobial susceptibilityon 08-03-2024 SARS-CoV-2 (COVID-19) RNA RUDY+probe Ql (Unsp spec) Positive [facility] No Panel Informationon 08-03 POC Influenza A (PCR) Negative [facility] [place] POC Influenza B (PCR) Negative [facility] MR shoulder RT wo conon 10-0 [id number] [id number] MRI Report Signed Patient: Rebecca Herrera MR#: [id number] : 1950 Acct:[id number] Age/Sex: 73 / F ADM Date: 05/11/24 Loc: [facility] Room: Type: [facility] Attending Dr: Helena Liao NP-C Copies to: [...] Dos Santos M.D.05/11/2024 10:01 AM Dictation Location: [place] [address] Transcribed By: [facility] 05/11/24 1001 Dictated By: Steven Dos Santos DO 05/11/24 0953 Signed By: 10/08/24 1001 Normal [facility] INR Coag (Bld) [Relative eden e]on 05-10-2024 INR 1.8 [facility] Automated basophil %Ordered By: Santana Williamson on 04-26-2024 Basophils/100 WBC (Bld) 0.5 % Normal . [facility] Comment on above: Performed By: #### C BC, ESR, CRP, ADDONUAPLUS, CREAT #### [facility] [address] Automated basophil countOrde red By: Santana Williamson on 04-26-2024 Basophils (Bld) [#/Vol] 0.0 10*3/uL Normal 0.0-0.2 [facility] Comment on above: Performed By: #### C BC, ESR, CRP, ADDONUAPLUS, CREAT #### [address] Automated blood monocyte cou ntOrdered By: Santana Williamson on 04-26-2024 Monocytes (Bld) [#/Vol] 0.5 10*3/uL Normal 0.0-0.8 [facility] Comment on above: Performed By: #### C BC, ESR, CRP, ADDONUAPLUS, CREAT #### [facility] [address] [place] [address] Automated eosinophil %Ordere d By: Santana Williamson on 04-26-2024 Eosinophils/100 WBC (Bld) 4.0 % Normal . [facility] Comment on above: Performed By: #### C BC, ESR, CRP, ADDONUAPLUS, CREAT #### [facility] [address] [place] [address] Automated eosinophil countOr dered By: Santana Williamson on 04-26-2024 Eosinophils (Bld) [#/Vol] 0.2 10*3/uL Normal 0.0-0.45 [facility] Comment on above: Performed By: #### C BC, ESR, CRP, ADDONUAPLUS, CREAT #### [facility] [address] [place] [address] Automated monocyte %Ordered By: Santana Williamson on 04-26-2024 Monocytes/100 WBC (Bld) 8.7 % Normal . [facility] Comment on above: Performed By: #### C BC, ESR, CRP, ADDONUAPLUS, CREAT #### [address] Automated neutrophil %Ordere d By: Santana Williamson on 04-26-2024 Neutrophils/100 WBC (Bld) 70.3 % Normal . [facility] Comment on above: Performed By: #### C BC, ESR, CRP, ADDONUAPLUS, CREAT #### [address] Bacteria [Presence] in Urine by AutomatedOrdered By: Santana Williamson on 04-26-2024 Bacteria Auto Ql (U) None seen [HPF] None Seen [facility] Bilirubin Test strip Ql (U)O rdered By: Santana Williamson on 04-26-2024 Bilirubin Ql (U) Negative Negative [facility] C reactive protein [Mass/vol ume] in Serum or PlasmaOrdered By: Santana Williamson on 04-26-2024 CRP [Mass/Vol] < 0.5 mg/dL 0.0-0.5 [facility] C-Reactive Proteinon 024 CRP [Mass/Vol] mg/L Normal 0.0-0.5 [facility] Comment on above: Result Comment: PERF ORMED BY: [place] [address] PATHOLOGIST PROSTHETIC AIDE HANANE CASTRO M.D. Performed By: #### C BC, ESR, CRP, ADDONUAPLUS, CREAT #### [address] Color of Urine by AutoOrdere d By: Santana Williamson on 04-26-2024 Color (U) Colorless Normal Yellow [facility] Comment on above: Order Comment: Name Collection Type:: Clean-Voided Midstream Performed By: #### C BC, ESR, CRP, ADDONUAPLUS, CREAT #### [address] Complete Blood Count Auto Di ffon 04-26-2024 Mean Corpuscular HGB Conc 34.1 g/dL Normal 32.0-35.0 [facility] Comment on above: Performed By: #### C BC, ESR, CRP, ADDONUAPLUS, CREAT #### [address] NRBC% 0.1 /100{WBC} Normal 0-0.5 [facility] Comment on above: Performed By: #### C BC, ESR, CRP, ADDONUAPLUS, CREAT #### [address] Creatinineon 04-26-2024 GFR/1.73 sq M.predicted MDRD (S/P/Bld) [Vol rate/Area] mL/min/{1.73_m2} Normal [facility] Comment on above: Performed By: #### C BC, ESR, CRP, ADDONUAPLUS, CREAT #### [address] Creatinine [Mass/volume] in Serum or PlasmaOrdered By: Santana Williamson on 04-26-2024 Creatinine [Mass/Vol] 0.64 mg/dL Normal 0.60-1.20 [facility] Comment on above: Performed By: #### C BC, ESR, CRP, ADDONUAPLUS, CREAT #### [address] Dipstick and Microscopicon 0 04-26-2024 Bacteria,Urine None Seen Normal None Seen [facility] Comment on above: Order Comment: Name Collection Type:: Clean-Voided Midstream Performed By: #### C BC, ESR, CRP, ADDONUAPLUS, CREAT #### [address] Bilirubin,Urine Negative Normal Negative [facility] Comment on above: Order Comment: Name Collection Type:: Clean-Voided Midstream Performed By: #### C BC, ESR, CRP, ADDONUAPLUS, CREAT #### [address] Glucose Ql (U) Normal Normal Normal [facility] Comment on above: Order Comment: Name Collection Type:: Clean-Voided Midstream Performed By: #### C BC, ESR, CRP, ADDONUAPLUS, CREAT #### [address] Hyaline Casts,Urine None Normal 0-8 [facility] Comment on above: Order Comment: Name Collection Type:: Clean-Voided Midstream Result Comment: PERF ORMED BY: [place] [address] PATHOLOGIST PROSTHETIC AIDE HANANE CASTRO M.D. Performed By: #### C BC, ESR, CRP, ADDONUAPLUS, CREAT #### [address] Nitrite,Urine Negative Normal Negative [facility] Comment on above: Order Comment: Name Collection Type:: Clean-Voided Midstream Performed By: #### C BC, ESR, CRP, ADDONUAPLUS, CREAT #### [place] [address] [place] Occult Blood,Urine Negative Normal Negative [facility] Comment on above: Order Comment: Name Collection Type:: Clean-Voided Midstream Performed By: #### C BC, ESR, CRP, ADDONUAPLUS, CREAT #### [address] Protein,Urine Negative Normal Negative [facility] Comment on above: Order Comment: Name Collection Type:: Clean-Voided Midstream Performed By: #### C BC, ESR, CRP, ADDONUAPLUS, CREAT #### [place] [address] [place] RBC,Urine 1-2 Normal 0-4 [facility] Comment on above: Order Comment: Name Collection Type:: Clean-Voided Midstream Performed By: #### C BC, ESR, CRP, ADDONUAPLUS, CREAT #### [place] [address] [place] Specificy [place],Urine 1.005 Normal 1.001-1.03 0 [facility] Comment on above: Order Comment: Name Collection Type:: Clean-Voided Midstream Performed By: #### C BC, ESR, CRP, ADDONUAPLUS, CREAT #### [address] Squamous Epithelial Cell,Urine 1-2 Normal 0-2 [facility] Comment on above: Order Comment: Name Collection Type:: Clean-Voided Midstream Performed By: #### C BC, ESR, CRP, ADDONUAPLUS, CREAT #### [address] Urobilinogen,Urine Normal Normal Normal [facility] Comment on above: Order Comment: Name Collection Type:: Clean-Voided Midstream Performed By: #### C BC, ESR, CRP, ADDONUAPLUS, CREAT #### [address] WBC,Urine 1-2 Normal 0-4 [facility] Comment on above: Order Comment: Name Collection Type:: Clean-Voided Midstream Performed By: #### C BC, ESR, CRP, ADDONUAPLUS, CREAT #### [address] Epithelial cells.squamous [# /area] in Urine sediment by Automated countOrdered By: Santana Williamson on 04-26-2024 Epithelial cells.squamous Auto (Urine sed) [#/Area] 1-2 [HPF] 0-2 [facility] Erythrocyte Sedimentation Ra francie 04-26-2024 ESR (Bld) [Velocity] 11 mm/h Normal 0-29 [facility] Comment on above: Result Comment: PERF ORMED BY: [place] [address] PATHOLOGIST PROSTHETIC AIDE HANANE CASTRO M.D. Performed By: #### C BC, ESR, CRP, ADDONUAPLUS, CREAT #### [address] Erythrocyte distribution wid th [Ratio] by Automated countOrdered By: Santana Williamson on 04-26-2024 Erythrocyte distribution width (RBC) [Ratio] 13.5 % Normal 11.9-15.3 [facility] Comment on above: Performed By: #### C BC, ESR, CRP, ADDONUAPLUS, CREAT #### [facility] [address] Erythrocyte sedimentation ra te by Photometric methodOrdered By: Santana Williamson on 04-26-2024 ESR Photometric method (Bld) [Velocity] 11 mm/hr 0-29 [facility] Erythrocytes [#/area] in Uri ne sediment by Automated countOrdered By: Santana Williamson on 04-26-2024 RBC Auto (Urine sed) [#/Area] 1-2 [HPF] 0-4 [facility] Erythrocytes [#/volume] in B lood by Automated countOrdered By: Santana Williamson on 04-26-2024 RBC (Bld) [#/Vol] 4.36 10*6/uL Normal 3.60-5.00 [facility] Comment on above: Performed By: #### C BC, ESR, CRP, ADDONUAPLUS, CREAT #### [address] Glucose [Mass/volume] in Uri ne by Test stripOrdered By: Santana Williamson on 04-26-2024 Glucose Test strip (U) [Mass/Vol] Normal mg/dL Normal [facility] Hematocrit [Volume Fraction] of Blood by Automated countOrdered By: Santana Williamson on 04-26-2024 Hematocrit (Bld) [Volume fraction] 42.1 % Normal 34.0-46.4 [facility] Comment on above: Performed By: #### C BC, ESR, CRP, ADDONUAPLUS, CREAT #### [facility] [address] [place] [address] Hemoglobin Test strip Ql (U) Ordered By: Santana Williamson on 04-26-2024 Hemoglobin Ql (U) Negative Negative [facility] Hemoglobin [Mass/volume] in BloodOrdered By: Santana Williamson on 04-26-2024 Hemoglobin (Bld) [Mass/Vol] 14.3 g/dL Normal 11.8-15.4 [facility] Comment on above: Performed By: #### C BC, ESR, CRP, ADDONUAPLUS, CREAT #### [facility] [address] [place] [address] [place] Hyaline casts [#/area] in Ur ine sediment by Automated countOrdered By: Santana Williamson on 04-26-2024 Hyaline casts Auto (Urine sed) [#/Area] None [LPF] 0-8 [facility] Ketones [Presence] in Urine by Test stripOrdered By: Santana Williamson on 04-26-2024 Ketones Ql (U) Negative Normal Negative [facility] Comment on above: Order Comment: Name Collection Type:: Clean-Voided Midstream Performed By: #### C BC, ESR, CRP, ADDONUAPLUS, CREAT #### [facility] [address] [place] [address] Leukocyte esterase [Presence ] in Urine by Test stripOrdered By: Santana Williamson on 04-26-2024 Leukocyte esterase Test strip Ql (U) Negative Normal Negative [facility] Comment on above: Order Comment: Name Collection Type:: Clean-Voided Midstream Performed By: #### C BC, ESR, CRP, ADDONUAPLUS, CREAT #### [facility] [address] [place] [address] [place] Leukocytes [#/area] in Urine sediment by Automated countOrdered By: Santana Williamson on 04-26-2024 WBC Auto (Urine sed) [#/Area] 1-2 [HPF] 0-4 [facility] Leukocytes [#/volume] correc zee for nucleated erythrocytes in Blood by Automated counOrdered By: Santana Williamson on 04-26-2024 WBC corrected for nucl RBC Auto (Bld) [#/Vol] 5.9 10*3/uL 3.8-11.6 [facility] Leukocytes [#/volume] in Blo od by Automated countOrdered By: Santana Williamson on 04-26-2024 WBC (Bld) [#/Vol] 5.9 10*3/uL Normal 3.8-11.6 [facility] Comment on above: Performed By: #### C BC, ESR, CRP, ADDONUAPLUS, CREAT #### [facility] [address] [place] [address] Lymphocytes [#/volume] in Bl ood by Automated countOrdered By: Santana Williamson on 04-26-2024 Lymphocytes (Bld) [#/Vol] 1.0 10*3/uL Normal 1.00-4.8 [facility] Comment on above: Performed By: #### C BC, ESR, CRP, ADDONUAPLUS, CREAT #### [address] Lymphocytes/100 leukocytes i n Blood by Automated countOrdered By: Santana Williamson on 04-26-2024 Lymphocytes/100 WBC (Bld) 16.5 % Normal . [facility] Comment on above: Performed By: #### C BC, ESR, CRP, ADDONUAPLUS, CREAT #### [address] MCH [Entitic mass] by Automa zee countOrdered By: Santana Williamson on 04-26-2024 MCH (RBC) [Entitic mass] 32.9 pg Normal 24.7-34.3 [facility] Comment on above: Performed By: #### C BC, ESR, CRP, ADDONUAPLUS, CREAT #### [address] MCHC Auto (RBC) [Mass/Vol]Or dered By: Santana Williamson on 04-26-2024 MCHC (RBC) [Mass/Vol] 34.1 g/dL 32.0-35.0 [facility] [place] MCV [Entitic volume] by Auto mated countOrdered By: Santana Williamson on 04-26-2024 MCV (RBC) [Entitic vol] 96.6 fL Normal 80-100 [facility] Comment on above: Performed By: #### C BC, ESR, CRP, ADDONUAPLUS, CREAT #### [address] Neutrophils [#/volume] in Bl ood by Automated countOrdered By: Santana Williamson on 04-26-2024 Neutrophils (Bld) [#/Vol] 4.2 10*3/uL Normal 1.8-7.7 [facility] Comment on above: Performed By: #### C BC, ESR, CRP, ADDONUAPLUS, CREAT #### [facility] [address] Nitrite Test strip Ql (U)Ord ered By: Santana Williamson on 04-26-2024 Nitrite Ql (U) Negative Negative [facility] No Panel InformationOrdered By: Santana Williamson on 04-26-2024 Estimated GFR (CKD-EPI) > 60.0 mL/Min [facility] Creatinine Clearance (Chem N/A [facility] Nucleated erythrocytes [Pres ence] in Blood by Automated countOrdered By: Santana Williamson on 04-26-2024 Nucleated RBC Auto Ql (Bld) 0.1 /100{WBC} 0-0.5 [facility] Platelet mean volume [Entiti c volume] in Blood by Automated countOrdered By: Santana Williamson on 04-26-2024 Platelet mean volume (Bld) [Entitic vol] 9.9 fL Normal 6.3-10.7 [facility] Comment on above: Performed By: #### C BC, ESR, CRP, ADDONUAPLUS, CREAT #### [facility] [address] [place] [address] [place] Platelets [#/volume] in Bloo d by Automated countOrdered By: Santana Williamson on 04-26-2024 Platelets (Bld) [#/Vol] 185 10*3/uL Normal 150-450 [facility] Comment on above: Performed By: #### C BC, ESR, CRP, ADDONUAPLUS, CREAT #### [facility] [address] [place] [address] [place] Protein Test strip (U) [Mass /Vol]Ordered By: Santana Williamson on 04-26-2024 Protein (U) [Mass/Vol] Negative Negative [facility] Specific gravity Test strip (U) [Rel density]Ordered By: aSntana Williamson on 09-23-2024 Specific gravity (U) [Rel density] 1.005 1.001-1.03 0 [facility] Urine appearanceOrdered By: Santana Williamson on 04-26-2024 Appearance (U) Clear Normal Clear [facility] Comment on above: Order Comment: Name Collection Type:: Clean-Voided Midstream Performed By: #### C BC, ESR, CRP, ADDONUAPLUS, CREAT #### [facility] [address] Urobilinogen Test strip (U) [Mass/Vol]Ordered By: Santana Williamson on 04-26-2024 Urobilinogen (U) [Mass/Vol] Normal mg/dL Normal [facility] pH of Urine by Test stripOrd ered By: Santana Williamson on 04-26-2024 pH (U) 5.5 [pH] Normal 5.0-9.0 [facility] Comment on above: Order Comment: Name Collection Type:: Clean-Voided Midstream Performed By: #### C BC, ESR, CRP, ADDONUAPLUS, CREAT #### [facility] [address] Alanine aminotransferase [En zymatic activity/volume] in Serum or PlasmaOrdered By: Robert Ledezma on 04-19-2024 ALT [Catalytic activity/Vol] 32 U/L Normal 7-52 [facility] Comment on above: Performed By: #### F E and TIBC, ALBERT, CMP, CBC ####[facility] [address] [place] [address] [place] Albumin [Mass/volume] in Ser um or Plasma by Bromocresol green (BCG) dye binding methoOrdered By: Robert Ledezma on 04-19-2024 Albumin BCG dye [Mass/Vol] 3.8 g/dL 3.5-5.7 [facility] Alkaline phosphatase [Enzyma tic activity/volume] in Serum or PlasmaOrdered By: Robert Ledezma on 04-19-2024 ALP [Catalytic activity/Vol] 97 U/L Normal 34-104 [facility] Comment on above: Performed By: #### F E and TIBC, ALBERT, CMP, CBC ####[address] Aspartate aminotransferase [ Enzymatic activity/volume] in Serum or PlasmaOrdered By: Robert Ledezma on 04-19-2024 AST [Catalytic activity/Vol] 26 U/L Normal 13-39 [facility] Comment on above: Performed By: #### F E and TIBC, ALBERT, CMP, CBC ####[address] Automated basophil %Ordered By: Robert Ledezma on 04-19-2024 Basophils/100 WBC (Bld) 1.0 % Normal . [facility] Comment on above: Performed By: #### F E and TIBC, ALBERT, CMP, CBC ####[address] Automated basophil countOrde red By: Robert Ledezma on 04-19-2024 Basophils (Bld) [#/Vol] 0.0 10*3/uL Normal 0.0-0.2 [facility] Comment on above: Result Comment: PERF ORMED BY: [facility] [address] [place] [address] PATHOLOGIST PROSTHETIC AIDE HANANE CASTRO M.D. Performed By: #### F E and TIBC, ALBERT, CMP, CBC ####[address] Automated blood monocyte cou ntOrdered By: Robert Ledezma on 04-19-2024 Monocytes (Bld) [#/Vol] 0.5 10*3/uL Normal 0.0-0.8 [facility] Comment on above: Performed By: #### F E and TIBC, ALBERT, CMP, CBC ####[address] Automated eosinophil %Ordere d By: Robert Ledezma on 04-19-2024 Eosinophils/100 WBC (Bld) 5.2 % Normal . [facility] Comment on above: Performed By: #### F E and TIBC, ALBERT, CMP, CBC ####[address] [place] [address] [place] Automated eosinophil countOr dered By: Robert Ledezma on 04-19-2024 Eosinophils (Bld) [#/Vol] 0.2 10*3/uL Normal 0.0-0.45 [facility] Comment on above: Performed By: #### F E and TIBC, ALBERT, CMP, CBC ####[address] Automated monocyte %Ordered By: Robert Ledezma on 04-19-2024 Monocytes/100 WBC (Bld) 10.1 % Normal . [facility] Comment on above: Performed By: #### F E and TIBC, ALBERT, CMP, CBC ####[address] Automated neutrophil %Ordere d By: Robert Ledezma on 04-19-2024 Neutrophils/100 WBC (Bld) 63.2 % Normal . [facility] Comment on above: Performed By: #### F E and TIBC, ALBERT, CMP, CBC ####[address] Bilirubin.total [Mass/volume ] in Serum or PlasmaOrdered By: Robert Ledezma on 04-19-2024 Bilirubin [Mass/Vol] 0.5 mg/dL Normal 0.3-1.0 [facility] Comment on above: Performed By: #### F E and TIBC, ALBERT, CMP, CBC ####[address] CBC W Auto Differential pane l (Bld)on 04-19-2024 Basophils (Bld) [#/Vol] 0.0 10*3/uL 0.0 - 0.2 10*3/uL [facility] Basophils/100 WBC Manual cnt (Syn fld) 1.0 % . [facility] Eosinophils (Bld) [#/Vol] 0.2 10*3/uL 0.0 - 0.45 10*3/uL [facility] Eosinophils/100 WBC Manual cnt (Syn fld) 5.2 % . [facility] Erythrocyte distribution width (RBC) [Ratio] 13.4 % 11.9 - 15.3 % [facility] Hematocrit (Bld) [Volume fraction] 41.3 % 34.0 - 46.4 % [facility] Hemoglobin (Bld) [Mass/Vol] 14.0 g/dL 11.8 - 15.4 g/dL [facility] Interpretation and review of laboratory results Abnormal [facility] Lymphocytes (Bld) [#/Vol] 0.9 10*3/uL Low 1.00 - 4.8 10*3/uL [facility] Lymphocytes/100 WBC Manual cnt (Syn fld) 20.5 % . [facility] MCH (RBC) [Entitic mass] 32.5 pg 24.7 - 34.3 pg [facility] MCHC (RBC) [Mass/Vol] 33.8 g/dL 32.0 - 35.0 g/dL [facility] MCV (RBC) [Entitic vol] 96.3 fL 80 - 100 fL [facility] Monocytes (Bld) [#/Vol] 0.5 10*3/uL 0.0 - 0.8 10*3/uL [facility] Monocytes+Macrophages/ 100 WBC Manual cnt (Syn fld) 10.1 % . [facility] Neutrophils (Bld) [#/Vol] 2.9 10*3/uL 1.8 - 7.7 10*3/uL [facility] Neutrophils/100 WBC Manual cnt (Syn fld) 63.2 % . [facility] NRBC 0.2 /100{WBC} 0 - 0.5 /100{WBC} [facility] Platelet mean volume (Bld) [Entitic vol] 9.4 fL 6.3 - 10.7 fL [facility] Platelets (Bld) [#/Vol] 147 10*3/uL Low 150 - 450 10*3/uL [facility] RBC LM.HPF (Urine sed) [#/Area] 4.29 /[HPF] 3.60 - 5.00 [facility] WBC (Bld) [#/Vol] 4.6 10*3/uL 3.8 - 11.6 10*3/uL [facility] WBC LM.HPF (Urine sed) [#/Area] 4.6 10*3/uL 3.8 - 11.6 10*3/uL [facility] Calcium [Mass/volume] in Ser um or PlasmaOrdered By: Robert Ledezma on 04-19-2024 Calcium [Mass/Vol] 8.6 mg/dL Normal 8.6-10.3 [facility] Comment on above: Performed By: #### F E and TIBC, ALBERT, CMP, CBC ####[address] Carbon dioxide, total [Moles /volume] in Serum or PlasmaOrdered By: Robert Ledezma on 04-19-2024 CO2 [Moles/Vol] 27.4 mmol/L Normal 21.0-31.0 [facility] Comment on above: Performed By: #### F E and TIBC, ALBERT, CMP, CBC ####[address] Chloride [Moles/volume] in S maurilio or PlasmaOrdered By: Robert Ledezma on 04-19-2024 Chloride [Moles/Vol] 108 mmol/L High 98-107 [facility] Comment on above: Performed By: #### F E and TIBC, ALBERT, CMP, CBC ####[address] Complete Blood Count Auto Di ffon 04-19-2024 Mean Corpuscular HGB Conc 33.8 g/dL Normal 32.0-35.0 [facility] Comment on above: Performed By: #### F E and TIBC, ALBERT, CMP, CBC ####[address] NRBC% 0.2 /100{WBC} Normal 0-0.5 [facility] Comment on above: Performed By: #### F E and TIBC, ALBERT, CMP, CBC ####[address] Comprehensive Metabolic Pane jyoti 04-19-2024 Albumin [Mass/Vol] 3.8 g/dL Normal 3.5-5.7 [facility] Comment on above: Performed By: #### F E and TIBC, ALBERT, CMP, CBC ####[address] [place] [address] [place] Creatinine Clr Calc Pharmacy 64.79 Normal [facility] Comment on above: Performed By: #### F E and TIBC, ALBERT, CMP, CBC ####[address] GFR/1.73 sq M.predicted MDRD (S/P/Bld) [Vol rate/Area] mL/min/{1.73_m2} Normal [facility] Comment on above: Performed By: #### F E and TIBC, ALBERT, CMP, CBC ####[address] Creatinine [Mass/volume] in Serum or PlasmaOrdered By: Robert Ledezma on 04-19-2024 Creatinine [Mass/Vol] 0.65 mg/dL Normal 0.60-1.20 [facility] [place] Comment on above: Performed By: #### F E and TIBC, ALBERT, CMP, CBC ####[address] Erythrocyte distribution wid th [Ratio] by Automated countOrdered By: Robert Ledezma on 04-19-2024 Erythrocyte distribution width (RBC) [Ratio] 13.4 % Normal 11.9-15.3 [facility] Comment on above: Performed By: #### F E and TIBC, ALBERT, CMP, CBC ####[address] Erythrocytes [#/volume] in B lood by Automated countOrdered By: Robert Ledezma on 04-19-2024 RBC (Bld) [#/Vol] 4.29 10*6/uL Normal 3.60-5.00 [facility] Comment on above: Performed By: #### F E and TIBC, ALBERT, CMP, CBC ####[address] Ferritin [Mass/volume] in Se rum or PlasmaOrdered By: Robert Ledezma on 04-19-2024 Ferritin [Mass/Vol] 53.0 ng/mL Normal 11.0-306.8 [facility] Comment on above: Result Comment: PERF ORMED BY: [facility] [address] [place] [address] PATHOLOGIST PROSTHETIC AIDE HANANE CASTRO M.D. Performed By: #### F E and TIBC, ALBERT, CMP, CBC ####[place] [id number] [place] [id number] [facility] Glucose [Mass/volume] in Ser um or PlasmaOrdered By: Robert Ledezma on 04-19-2024 Glucose [Mass/Vol] 78 mg/dL Normal 70-100 [facility] Comment on above: ADA recommended refe rence rangeRandom Glucose Reference Range is dependent on time and content of last meal. Glucose of more than 200 mg/dL in a nonstressed, ambulatory subject supports the diagnosis of Diabetes Mellitus. Result Comment: [place] Glucose Reference Range is dependent on time and content of last meal. Glucose of more than 200 mg/dL in a nonstressed, ambulatory subject supports the diagnosis of Diabetes Mellitus. ADA recommended reference range Performed By: #### F E and TIBC, ALBERT, CMP, CBC ####[place] [id number] [facility] Hematocrit [Volume Fraction] of Blood by Automated countOrdered By: Robert Ledezma on 04-19-2024 Hematocrit (Bld) [Volume fraction] 41.3 % Normal 34.0-46.4 [facility] Comment on above: Performed By: #### F E and TIBC, ALBERT, CMP, CBC ####[place] [id number] [facility] Hemoglobin [Mass/volume] in BloodOrdered By: Robert Ledezma on 04-19-2024 Hemoglobin (Bld) [Mass/Vol] 14.0 g/dL Normal 11.8-15.4 [facility] Comment on above: Performed By: #### F E and TIBC, ALBERT, CMP, CBC ####[place] [id number] [facility] Iron [Mass/volume] in Serum or PlasmaOrdered By: Robert Ledezma on 04-19-2024 Iron [Mass/Vol] 68 ug/dL Normal 50-212 [facility] Comment on above: Performed By: #### F E and TIBC, ALBERT, CMP, CBC ####[place] [id number] Iron and TIBC Profileon 04-04 % Iron Saturation 19.7 % Low 20-50 [facility] Comment on above: Performed By: #### F E and TIBC, ALBERT, CMP, CBC ####[address] Total Iron Binding Capacity 346 ug/dL Normal 255-450 [facility] Comment on above: Performed By: #### F E and TIBC, ALBERT, CMP, CBC ####[address] Iron binding capacity [Mass/ volume] in Serum or PlasmaOrdered By: Robert Ledezma on 04-19-2024 Iron binding capacity [Mass/Vol] 346 ug/dL 255-450 [facility] Iron saturation [Mass Fracti on] in Serum or PlasmaOrdered By: Robert Ledezma on 04-19-2024 Iron saturation [Mass fraction] 19.7 % Low 20-50 [facility] Leukocytes [#/volume] correc zee for nucleated erythrocytes in Blood by Automated counOrdered By: Robert Ledezma on 04-19-2024 WBC corrected for nucl RBC Auto (Bld) [#/Vol] 4.6 10*3/uL 3.8-11.6 [facility] Leukocytes [#/volume] in Blo od by Automated countOrdered By: Robert Ledezma on 04-19-2024 WBC (Bld) [#/Vol] 4.6 10*3/uL Normal 3.8-11.6 [facility] Comment on above: Performed By: #### F E and TIBC, ALBERT, CMP, CBC ####[address] Lymphocytes [#/volume] in Bl ood by Automated countOrdered By: Robert Ledezma on 04-19-2024 Lymphocytes (Bld) [#/Vol] 0.9 10*3/uL Low 1.00-4.8 [facility] Comment on above: Performed By: #### F E and TIBC, ALBERT, CMP, CBC ####[address] Lymphocytes/100 leukocytes i n Blood by Automated countOrdered By: Robert Ledezma on 04-19-2024 Lymphocytes/100 WBC (Bld) 20.5 % Normal . [facility] Comment on above: Performed By: #### F E and TIBC, ALBERT, CMP, CBC ####[address] MCH [Entitic mass] by Automa zee countOrdered By: Robert Ledezma on 04-19-2024 MCH (RBC) [Entitic mass] 32.5 pg Normal 24.7-34.3 [facility] Comment on above: Performed By: #### F E and TIBC, ALBERT, CMP, CBC ####[address] MCHC Auto (RBC) [Mass/Vol]Or dered By: Robert Ledezma on 04-19-2024 MCHC (RBC) [Mass/Vol] 33.8 g/dL 32.0-35.0 [facility] [place] MCV [Entitic volume] by Auto mated countOrdered By: Robert Ledezma on 04-19-2024 MCV (RBC) [Entitic vol] 96.3 fL Normal 80-100 [facility] Comment on above: Performed By: #### F E and TIBC, ALBERT, CMP, CBC ####[address] Neutrophils [#/volume] in Bl ood by Automated countOrdered By: Robert Ledezma on 04-19-2024 Neutrophils (Bld) [#/Vol] 2.9 10*3/uL Normal 1.8-7.7 [facility] Comment on above: Performed By: #### F E and TIBC, ALBERT, CMP, CBC ####[address] No Panel InformationOrdered By: Robert Ledezma on 04-19-2024 Estimated GFR (CKD-EPI) > 60.0 mL/Min [facility] Creatinine Clearance (Chem 64.79 [facility] Nucleated erythrocytes [Pres ence] in Blood by Automated countOrdered By: Robert Ledezma on 04-19-2024 Nucleated RBC Auto Ql (Bld) 0.2 /100{WBC} 0-0.5 [facility] Platelet mean volume [Entiti c volume] in Blood by Automated countOrdered By: Robert Ledezma on 04-19-2024 Platelet mean volume (Bld) [Entitic vol] 9.4 fL Normal 6.3-10.7 [facility] Comment on above: Performed By: #### F E and TIBC, ALBERT, CMP, CBC ####[address] Platelets [#/volume] in Bloo d by Automated countOrdered By: Robert Ledezma on 04-19-2024 Platelets (Bld) [#/Vol] 147 10*3/uL Low 150-450 [facility] Comment on above: Performed By: #### F E and TIBC, ALBERT, CMP, CBC ####[address] Potassium [Moles/volume] in Serum or PlasmaOrdered By: Robert Ledezma on 04-19-2024 Potassium [Moles/Vol] 3.6 mmol/L Normal 3.5-5.1 [facility] [place] Comment on above: Performed By: #### F E and TIBC, ALBERT, CMP, CBC ####[address] Protein [Mass/volume] in Ser um or PlasmaOrdered By: Robert Ledezma on 04-19-2024 Protein [Mass/Vol] 6.0 g/dL Low 6.4-8.9 [facility] Comment on above: Performed By: #### F E and TIBC, ALBERT, CMP, CBC ####[place] [address] [place] Serum globulin measurement b y calculation (mass/volume)Ordered By: Robert Ledezma on 04-19-2024 Globulin (S) [Mass/Vol] 2.2 g/dL [facility] Comment on above: Performed By: #### F E and TIBC, ALBERT, CMP, CBC ####[address] Serum or plasma albumin/glob ulin mass ratioOrdered By: Robert Ledezma on 04-19-2024 Albumin/Globulin [Mass ratio] 1.7 {ratio} [facility] Comment on above: Performed By: #### F E and TIBC, ALBERT, CMP, CBC ####[address] Serum or plasma anion gap de terminationOrdered By: Robert Ledezma on 04-19-2024 Anion gap [Moles/Vol] 9.2 mmol/L Normal 6.0-15.0 [facility] Comment on above: Performed By: #### F E and TIBC, ALBERT, CMP, CBC ####[address] Sodium [Moles/volume] in Ser um or PlasmaOrdered By: Robert Ledezma on 04-19-2024 Sodium [Moles/Vol] 141 mmol/L Normal 136-145 [facility] Comment on above: Performed By: #### F E and TIBC, ALBERT, CMP, CBC ####[address] Transferrin [Mass/volume] in Serum or PlasmaOrdered By: Robert Ledezma on 04-19-2024 Transferrin [Mass/Vol] 247 mg/dL Normal 203-362 [facility] Comment on above: Performed By: #### F E and TIBC, ALBERT, CMP, CBC ####[address] Urea nitrogen [Mass/volume] in Serum or PlasmaOrdered By: Robert Ledezma on 04-19-2024 Urea nitrogen [Mass/Vol] 10 mg/dL Normal 7-25 [facility] Comment on above: Performed By: #### F E and TIBC, ALBERT, CMP, CBC ####[facility] [id number] [place] [id number] [facility] XR shoulder RT min 2V*on XR shoulder RT min 2V* [facility] [address] [place] [address] XRay Report Signed Patient: Rebecca Herrera MR#: [id number] : 1950 Acct:[id number] Age/Sex: 73 / F ADM Date: 02/27/24 Loc: [facility] Room: Type: [facility] Attending Dr: Mau Blackman DO Copies to: [...] Thompson Jr., D.ODemi02/27/2024 9:36 AM Dictation Location: [place] [address] Transcribed By: [facility] 02/27/24 0936 Dictated By: Hammad Thompson Jr, DO 02/27/24 0936 Signed By: 02/27/24 0936 Normal [facility] ECG 12 [place] 02-12-2024 Sinus bradycardia wi th heart rate of 55 with incomplete right bundle branch block [facility] Work Phone: RAD - MISCon 01-04-2024 RAD - MISC [id number]#[id number] Normal [facility] Report[facility] 01-01-2024 Lab Reports [id number]#[id number] Normal [facility] [facility] Consent for Procedure/Surger yon 2023 Consent for Procedure/Surgery [id number]#1.00TIFF Normal [facility] ECG 12-Leadon 2023 ECG 12-Lead [id number]#1.00TIFF Normal [facility] ECG 12-Lead [id number]#1.00TIFF Normal [facility] Formson 2023 Forms [id number]#1.00TIFF [facility] Lab Reportson 2023 Lab Reports [id number]#1.00TIFF [facility] Lab Reports [id number]#1.00TIFF [facility] Physician Referralon 024 Physician Referral [id number]#1.00TIFF [facility] RAD - MISCon 2023 RAD - MISC [id number]#1.00TIFF Normal [facility] Formson 12-11-2023 Forms [id number]#1.00TIFF [facility] Physician Referralon 024 Physician Referral [id number]#1.00TIFF [facility] Ambulatory Visit Summaryon 0 12-10-2023 Ambulatory Visit Summary REBECCA NUGENT :1950 Visit Date:12/10/2023 Ambulatory Visit Instructions Your Diagnosis Ureteral stone Kidney stone History of renal stone Tests Performed XR Abdomen 1 View -- Results Pending -- Please visit your patient portal for your results or contact your primary care physician. Your Care Team Attending Physician - Jasper ALMONTE MD Primary Care Physician - RADHA MCKEON MD This Is Your Medications List Contact prescribing [...] [place] When: Where: [facility] [address], [place] [address]- Medications What How Much When Instructions Unchanged [...] urine (hematuria) (more content not included)... Normal [facility] Patient Educationon 12-10-19 Patient Education Urology Kidney [...] these instructions at home: Medicines ? Take zain-swt-clvnepf and prescription medicines only as told by [...] from (more content not included)... 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 female new patient here for [facility] f/u w/ KUB. Pt presented to [facility] on 12/01/23 for left sided abdominal [...] information and history for this patient from [facility] . I have reviewed and verified the [...] yo female new pt following up to [facility] ED visit on 12/01/23 due to L [...] mg bid. SE discussed. Rx sent to [facility]. -High fluid intake. -Pt to call or go to the ER if he were to experience fever, shaking, chills, uncontrolled nausea, vomiting, or pain. 2. Kidney stone (N20.0: Calculus of kidney) See #1. 3. History of renal stone (Z87.442: Personal history of urinary calculi) See #1. Follow-up With When Contact Information SUZY MARTINEZ, Jasper Caicedo, URL [facility] [address], [place] [address]- Additional Instructions: 1 wk with KUB Patient [...] data Procedu (more content not included)... Normal [facility] Comment on above: Result Comment: Elec tronically Signed By: Jasper ALMONTE MD\.br\Date and Time Signed: 12/10/23 15:09 EDT\.br\Electronically Co-Signed By: Aleksandra Lowery\.br\Date and Time Co-Signed: 12/10/23 15:07 EDT RAD - MISCon 12-09-2023 RAD - MISC [id number]#1.00TIFF Normal [facility] Urine culture routineOrdered By: Aby Acosta on 12-02-2023 Bacteria identified Cx Nom (U) 2 Days [facility] Alanine aminotransferase [En zymatic activity/volume] in Serum or PlasmaOrdered By: PROVIDER TEMP on 12-01-2023 ALT [Catalytic activity/Vol] 33 U/L 7-52 [facility] Albumin [Mass/volume] in Ser um or Plasma by Bromocresol green (BCG) dye binding methoOrdered By: PROVIDER TEMP on 12-01-2023 Albumin BCG dye [Mass/Vol] 4.2 g/dL 3.5-5.7 [facility] Alkaline phosphatase [Enzyma tic activity/volume] in Serum or PlasmaOrdered By: PROVIDER TEMP on 12-01-2023 ALP [Catalytic activity/Vol] 120 U/L High 34-104 [facility] Aspartate aminotransferase [ Enzymatic activity/volume] in Serum or PlasmaOrdered By: PROVIDER TEMP on 12-01-2023 AST [Catalytic activity/Vol] 26 U/L 13-39 [facility] Automated erythrocytes count in urine sediment (number/area)Ordered By: Aby Acosta on 12-01-2023 RBC Auto (Urine sed) [#/Area] 50-100 [HPF] High 0-4 [facility] Automated leukocytes count i n urine sediment (number/area)Ordered By: Aby Acosta on 12-01-2023 WBC Auto (Urine sed) [#/Area] 0-1 [HPF] 0-4 [facility] Basophils Auto (Bld) [#/Vol] Ordered By: PROVIDER TEMP on 12-01-2023 Basophils (Bld) [#/Vol] 0.0 10*3/uL 0.0-0.2 [facility] Basophils/100 WBC Auto (Bld) Ordered By: PROVIDER TEMP on 12-01-2023 Basophils/100 WBC (Bld) 0.3 % . [facility] Bilirubin Test strip Ql (U)O rdered By: Aby Acosta on 12-01-2023 Bilirubin Ql (U) Negative Negative [facility] Bilirubin.direct [Mass/volum e] in Serum or PlasmaOrdered By: PROVIDER TEMP on 12-01-2023 Bilirubin.direct [Mass/Vol] 0.10 mg/dL 0.03-0.18 [facility] Bilirubin.total [Mass/volume ] in Serum or PlasmaOrdered By: PROVIDER TEMP on 12-01-2023 Bilirubin [Mass/Vol] 0.6 mg/dL 0.3-1.0 [facility] Calcium [Mass/volume] in Ser um or PlasmaOrdered By: PROVIDER TEMP on 12-01-2023 Calcium [Mass/Vol] 9.0 mg/dL 8.6-10.3 [facility] Carbon dioxide, total [Moles /volume] in Serum or PlasmaOrdered By: PROVIDER TEMP on 12-01-2023 CO2 [Moles/Vol] 24.9 mmol/L 21.0-31.0 [facility] Chloride [Moles/volume] in S maurilio or PlasmaOrdered By: PROVIDER TEMP on 12-01-2023 Chloride [Moles/Vol] 107 mmol/L 98-107 [facility] Color Auto (U)Ordered By: Nick lucianogareth Dave on 12-01-2023 Color (U) Yellow Yellow [facility] Creatinine [Mass/volume] in Serum or PlasmaOrdered By: PROVIDER TEMP on 12-01-2023 Creatinine [Mass/Vol] 0.80 mg/dL 0.60-1.20 [facility] Eosinophils Auto (Bld) [#/Vo l]Ordered By: PROVIDER TEMP on 12-01-2023 Eosinophils (Bld) [#/Vol] 0.2 10*3/uL 0.0-0.45 [facility] Eosinophils/100 WBC Auto (Bl d)Ordered By: PROVIDER TEMP on 12-01-2023 Eosinophils/100 WBC (Bld) 2.0 % . [facility] Erythrocyte distribution wid th Auto (RBC) [Ratio]Ordered By: PROVIDER TEMP on 12-01-2023 Erythrocyte distribution width (RBC) [Ratio] 13.8 % 11.9-15.3 [facility] Globulin Calc (S) [Mass/Vol] Ordered By: PROVIDER TEMP on 12-01-2023 Globulin (S) [Mass/Vol] 2.4 g/dL [facility] Glucose [Mass/volume] in Ser um or PlasmaOrdered By: PROVIDER TEMP on 12-01-2023 Glucose [Mass/Vol] 127 mg/dL High 70-100 [facility] Comment on above: ADA recommended refe rence rangeRandom Glucose Reference Range is dependent on time and content of last meal. Glucose of more than 200 mg/dL in a nonstressed, ambulatory subject supports the diagnosis of Diabetes Mellitus. HCG ( test) IA.rapi d Ql (U)Ordered By: PROVIDER TEMP on 12-01-2023 HCG ( test) Ql (U) Negative [facility] Hematocrit Auto (Bld) [Volum e fraction]Ordered By: PROVIDER TEMP on 12-01-2023 Hematocrit (Bld) [Volume fraction] 42.8 % 34.0-46.4 [facility] Hemoglobin [Mass/volume] in BloodOrdered By: PROVIDER TEMP on 12-01-2023 Hemoglobin (Bld) [Mass/Vol] 14.4 g/dL 11.8-15.4 [facility] Ketones Auto test strip (U) [Mass/Vol]Ordered By: Aby Acosta on 12-01-2023 Ketones (U) [Mass/Vol] Trace High Negative [facility] - UrinalysisOrder ed By: Aby Acosta on 12-01-2023 Hyaline casts LM Ql (Urine sed) 0-8 [LPF] 0-8 [facility] Leukocytes [#/volume] correc zee for nucleated erythrocytes in Blood by Automated counOrdered By: PROVIDER TEMP on 12-01-2023 WBC corrected for nucl RBC Auto (Bld) [#/Vol] 9.1 10*3/uL 3.8-11.6 [facility] Lipase [Enzymatic activity/v olume] in Serum or PlasmaOrdered By: PROVIDER TEMP on 12-01-2023 Lipase [Catalytic activity/Vol] 43.0 U/L 11.0-82.0 [facility] Lymphocytes Auto (Bld) [#/Vo l]Ordered By: PROVIDER TEMP on 12-01-2023 Lymphocytes (Bld) [#/Vol] 0.6 10*3/uL Low 1.00-4.8 [facility] Lymphocytes/100 WBC Auto (Bl d)Ordered By: PROVIDER TEMP on 12-01-2023 Lymphocytes/100 WBC (Bld) 7.1 % . [facility] MCH Auto (RBC) [Entitic mass ]Ordered By: PROVIDER TEMP on 12-01-2023 MCH (RBC) [Entitic mass] 32.3 pg 24.7-34.3 [facility] MCHC Auto (RBC) [Mass/Vol]Or dered By: PROVIDER TEMP on 12-01-2023 MCHC (RBC) [Mass/Vol] 33.7 g/dL 32.0-35.0 [facility] MCV Auto (RBC) [Entitic vol] Ordered By: PROVIDER TEMP on 12-01-2023 MCV (RBC) [Entitic vol] 95.9 fL 80-100 [facility] Monocyte distribution width [Entitic volume] in Blood by AutomatedOrdered By: PROVIDER TEMP on 12-01-2023 Monocyte distribution width Auto (Bld) [Entitic vol] 16.88 % 0.00-20.00 [facility] Monocytes Auto (Bld) [#/Vol] Ordered By: PROVIDER TEMP on 12-01-2023 Monocytes (Bld) [#/Vol] 0.7 10*3/uL 0.0-0.8 [facility] Monocytes/100 WBC Auto (Bld) Ordered By: PROVIDER TEMP on 12-01-2023 Monocytes/100 WBC (Bld) 8.1 % . [facility] Neutrophils Auto (Bld) [#/Vo l]Ordered By: PROVIDER TEMP on 12-01-2023 Neutrophils (Bld) [#/Vol] 7.5 10*3/uL 1.8-7.7 [facility] Neutrophils/100 WBC Auto (Bl d)Ordered By: PROVIDER TEMP on 12-01-2023 Neutrophils/100 WBC (Bld) 82.5 % . [facility] Nitrite Test strip Ql (U)Ord ered By: Aby Acosta on 12-01-2023 Nitrite Ql (U) Negative Negative [facility] No Panel InformationOrdered By: PROVIDER TEMP on 12-01-2023 Estimated GFR (CKD-EPI) > 60.0 mL/Min [facility] Creatinine Clearance (Chem 65.72 [facility] Nucleated erythrocytes [Pres ence] in Blood by Automated countOrdered By: PROVIDER TEMP on 12-01-2023 Nucleated RBC Auto Ql (Bld) 0.1 /100{WBC} 0-0.5 [facility] Platelet mean volume Auto (B ld) [Entitic vol]Ordered By: PROVIDER TEMP on 12-01-2023 Platelet mean volume (Bld) [Entitic vol] 9.5 fL 6.3-10.7 [facility] Platelets Auto (Bld) [#/Vol] Ordered By: PROVIDER TEMP on 12-01-2023 Platelets (Bld) [#/Vol] 172 10*3/uL 150-450 [facility] Potassium [Moles/volume] in Serum or PlasmaOrdered By: PROVIDER TEMP on 12-01-2023 Potassium [Moles/Vol] 3.9 mmol/L 3.5-5.1 [facility] Protein Auto test strip (U) [Mass/Vol]Ordered By: Aby Acosta on 12-01-2023 Protein (U) [Mass/Vol] 30 mg/dL High Negative [facility] Protein [Mass/volume] in Ser um or PlasmaOrdered By: PROVIDER TEMP on 12-01-2023 Protein [Mass/Vol] 6.6 g/dL 6.4-8.9 [facility] RBC Auto (Bld) [#/Vol]Ordere d By: PROVIDER TEMP on 12-01-2023 RBC (Bld) [#/Vol] 4.46 10*6/uL 3.60-5.00 [facility] Serum or plasma albumin/glob ulin mass ratioOrdered By: PROVIDER TEMP on 12-01-2023 Albumin/Globulin [Mass ratio] 1.8 {ratio} [facility] Serum or plasma anion gap de terminationOrdered By: PROVIDER TEMP on 12-01-2023 Anion gap [Moles/Vol] 11.0 mmol/L 6.0-15.0 [facility] Serum or plasma non-glucuron idated bilirubin measurement (mass/volume)Ordered By: PROVIDER TEMP on 12-01-2023 Bilirubin.indirect [Mass/Vol] 0.5 mg/dL [facility] Sodium [Moles/volume] in Ser um or PlasmaOrdered By: PROVIDER TEMP on 12-01-2023 Sodium [Moles/Vol] 139 mmol/L 136-145 [facility] Specific gravity Auto test s trip (U) [Rel density]Ordered By: Aby Acosta on 12-01-2023 Specific gravity (U) [Rel density] 1.014 1.001-1.03 0 [facility] Squamous epithelial cells de tection in urine sediment by light microscopyOrdered By: Aby Acosta on 12-01-2023 Epithelial cells.squamous LM Ql (Urine sed) 0-1 [HPF] 0-2 [facility] Urea nitrogen [Mass/volume] in Serum or PlasmaOrdered By: PROVIDER TEMMisael on 12-01-2023 Urea nitrogen [Mass/Vol] 9 mg/dL 7-25 [facility] Urine bacteria detection by automated methodOrdered By: Aby Acosta on 12-01-2023 Bacteria Auto Ql (U) None seen [HPF] None Seen [facility] Urine clarity by refractomet ry automatedOrdered By: Aby Acosta on 12-01-2023 Clarity Refractometry automated (U) Cloudy Abnormal Clear [facility] Urine glucose measurement by automated test strip (mass/volume)Ordered By: Aby Acosta on 12-01-2023 Glucose Auto test strip (U) [Mass/Vol] Normal mg/dL Normal [facility] Urine hemoglobin detection b y automated test stripOrdered By: Aby Acosta on 12-01-2023 Hemoglobin Auto test strip Ql (U) 3+ High Negative [facility] Urine leukocyte esterase det ection by automated test stripOrdered By: Aby Acosta on 12-01-2023 Leukocyte esterase Auto test strip Ql (U) Negative Negative [facility] Urobilinogen Auto test strip (U) [Mass/Vol]Ordered By: Aby Acosta on 12-01-2023 Urobilinogen (U) [Mass/Vol] Normal mg/dL Normal [facility] WBC Auto (Bld) [#/Vol]Ordere d By: PROVIDER ALEKSANDER on 12-01-2023 WBC (Bld) [#/Vol] 9.1 10*3/uL 3.8-11.6 [facility] pH Auto test strip (U)Ordere d By: Aby Acosta on 12-01-2023 pH (U) 5.5 [pH] 5.0-9.0 [facility] Activated partial thrombopla stin time (aPTT) in platelet poor plasma by coagulation aOrdered By: Agustín Lin on 11-28-2023 aPTT Coag (PPP) [Time] 31.5 s 25.1-36.5 [facility] Comment on above: A hematocrit value g reater than 55% may lead to inaccurate results in coagulation testing. Patients having hematocrit values >55% require a special collection tube for coagulation studies. Please contact the laboratory at [phone] for redraw instructions. Basophils Auto (Bld) [#/Vol] Ordered By: Agustín Lin on 11-28-2023 Basophils (Bld) [#/Vol] 0.0 10*3/uL 0.0-0.2 [facility] Basophils/100 WBC Auto (Bld) Ordered By: Agustín Lin on 11-28-2023 Basophils/100 WBC (Bld) 1.0 % . [facility] Calcium [Mass/volume] in Ser um or PlasmaOrdered By: Agustín Lin on 11-28-2023 Calcium [Mass/Vol] 8.5 mg/dL 8.6-10.3 [facility] Carbon dioxide, total [Moles /volume] in Serum or PlasmaOrdered By: Agustín Lin on 11-28-2023 CO2 [Moles/Vol] 25.9 mmol/L 21.0-31.0 [facility] Chloride [Moles/volume] in S maurilio or PlasmaOrdered By: Agustín Lin on 11-28-2023 Chloride [Moles/Vol] 110 mmol/L 98-107 [facility] Creatinine [Mass/volume] in Serum or PlasmaOrdered By: Agustín Lin on 11-28-2023 Creatinine [Mass/Vol] 0.61 mg/dL 0.60-1.20 [facility] Eosinophils Auto (Bld) [#/Vo l]Ordered By: Agustín Lin on 11-28-2023 Eosinophils (Bld) [#/Vol] 0.2 10*3/uL 0.0-0.45 [facility] Eosinophils/100 WBC Auto (Bl d)Ordered By: Agustín Lin on 11-28-2023 Eosinophils/100 WBC (Bld) 4.7 % . [facility] Erythrocyte distribution wid th Auto (RBC) [Ratio]Ordered By: Agustín Lin on 11-28-2023 Erythrocyte distribution width (RBC) [Ratio] 13.7 % 11.9-15.3 [facility] Glucose [Mass/volume] in Ser um or PlasmaOrdered By: Agustín Lin on 11-28-2023 Glucose [Mass/Vol] 98 mg/dL 70-100 [facility] Comment on above: ADA recommended refe rence rangeRandom Glucose Reference Range is dependent on time and content of last meal. Glucose of more than 200 mg/dL in a nonstressed, ambulatory subject supports the diagnosis of Diabetes Mellitus. Hematocrit Auto (Bld) [Volum e fraction]Ordered By: Agustín Lin on 11-28-2023 Hematocrit (Bld) [Volume fraction] 41.4 % 34.0-46.4 [facility] Hemoglobin [Mass/volume] in BloodOrdered By: Agustín Lin on 11-28-2023 Hemoglobin (Bld) [Mass/Vol] 14.0 g/dL 11.8-15.4 [facility] INR in Platelet poor plasma by Coagulation assayOrdered By: Agustín Lin on 11-28-2023 INR Coag (PPP) [Relative time] 1.3 {INR} [facility] Comment on above: INR Therapeutic Rang [...] in Blood by Automated counOrdered By: Agustín Lin on 11-28-2023 WBC corrected for nucl RBC Auto (Bld) [#/Vol] 4.9 10*3/uL 3.8-11.6 [facility] Lymphocytes Auto (Bld) [#/Vo l]Ordered By: Agustín Lin on 11-28-2023 Lymphocytes (Bld) [#/Vol] 1.2 10*3/uL 1.00-4.8 [facility] Lymphocytes/100 WBC Auto (Bl d)Ordered By: Agustín Lin on 11-28-2023 Lymphocytes/100 WBC (Bld) 23.5 % . [facility] MCH Auto (RBC) [Entitic mass ]Ordered By: Agustín Lin on 11-28-2023 MCH (RBC) [Entitic mass] 32.2 pg 24.7-34.3 [facility] MCHC Auto (RBC) [Mass/Vol]Or dered By: Agustín Lin on 11-28-2023 MCHC (RBC) [Mass/Vol] 33.8 g/dL 32.0-35.0 [facility] MCV Auto (RBC) [Entitic vol] Ordered By: Agustín Lin on 11-28-2023 MCV (RBC) [Entitic vol] 95.1 fL 80-100 [facility] Monocyte distribution width [Entitic volume] in Blood by AutomatedOrdered By: Agustín Lin on 11-28-2023 Monocyte distribution width Auto (Bld) [Entitic vol] 16.86 % 0.00-20.00 [facility] Monocytes Auto (Bld) [#/Vol] Ordered By: Agustín Lin on 11-28-2023 Monocytes (Bld) [#/Vol] 0.6 10*3/uL 0.0-0.8 [facility] Monocytes/100 WBC Auto (Bld) Ordered By: Agustín Lin on 11-28-2023 Monocytes/100 WBC (Bld) 12.4 % . [facility] Natriuretic peptide B [Mass/ Vol]Ordered By: Agustín Lin on 11-28-2023 Natriuretic peptide B (Bld) [Mass/Vol] 126.0 pg/mL 5-100 [facility] Neutrophils Auto (Bld) [#/Vo l]Ordered By: Agustín Lin on 11-28-2023 Neutrophils (Bld) [#/Vol] 2.9 10*3/uL 1.8-7.7 [facility] Neutrophils/100 WBC Auto (Bl d)Ordered By: Agustín Lin on 11-28-2023 Neutrophils/100 WBC (Bld) 58.4 % . [facility] No Panel InformationOrdered By: Agustín Lin on 11-28-2023 Estimated GFR (CKD-EPI) > 60.0 mL/Min [facility] Creatinine Clearance (Chem 65.76 [facility] Nucleated erythrocytes [Pres ence] in Blood by Automated countOrdered By: Agustín Lin on 11-28-2023 Nucleated RBC Auto Ql (Bld) 0.1 /100{WBC} 0-0.5 [facility] Platelet mean volume Auto (B ld) [Entitic vol]Ordered By: Agustín Lin on 11-28-2023 Platelet mean volume (Bld) [Entitic vol] 9.8 fL 6.3-10.7 [facility] Platelets Auto (Bld) [#/Vol] Ordered By: Agustín Lin on 11-28-2023 Platelets (Bld) [#/Vol] 185 10*3/uL 150-450 [facility] Potassium [Moles/volume] in Serum or PlasmaOrdered By: Agustín Lin on 11-28-2023 Potassium [Moles/Vol] 3.4 mmol/L 3.5-5.1 [facility] Prothrombin time (PT)Ordered By: Agustín Lin on 11-28-2023 PT Coag (PPP) [Time] 15.2 s 9.0-12.9 [facility] Comment on above: A hematocrit value g reater than 55% may lead to inaccurate results in coagulation testing. Patients having hematocrit values >55% require a special collection tube for coagulation studies. Please contact the laboratory at [phone] for redraw instructions. RBC Auto (Bld) [#/Vol]Ordere d By: Agustín Lin on 11-28-2023 RBC (Bld) [#/Vol] 4.35 10*6/uL 3.60-5.00 [facility] Serum or plasma anion gap de terminationOrdered By: Agustín Lin on 11-28-2023 Anion gap [Moles/Vol] 10.5 mmol/L 6.0-15.0 [facility] Sodium [Moles/volume] in Ser um or PlasmaOrdered By: Agustín Lin on 11-28-2023 Sodium [Moles/Vol] 143 mmol/L 136-145 [facility] Troponin I.cardiac [Mass/vol ume] in Serum or Plasma by Detection limit <= 0.01 ng/Ordered By: Agustín Lin on 11-28-2023 Troponin I.cardiac DL <= 0.01 ng/mL [Mass/Vol] 9.8 pg/mL 0.0-15.0 [facility] Urea nitrogen [Mass/volume] in Serum or PlasmaOrdered By: Agustín Lin on 11-28-2023 Urea nitrogen [Mass/Vol] 10 mg/dL 7 [facility] WBC Auto (Bld) [#/Vol]Ordere d By: Agustín Lin on 11-28-2023 WBC (Bld) [#/Vol] 4.9 10*3/uL 3.8-11.6 [facility] Alanine aminotransferase [En zymatic activity/volume] in Serum or PlasmaOrdered By: Robert Ledezma on 10-21-2023 ALT [Catalytic activity/Vol] 62 U/L 7 [facility] Albumin [Mass/volume] in Ser um or Plasma by Bromocresol green (BCG) dye binding methoOrdered By: Robert Ledezma on 10-21-2023 Albumin BCG dye [Mass/Vol] 3.8 g/dL 3.5-5.7 [facility] Alkaline phosphatase [Enzyma tic activity/volume] in Serum or PlasmaOrdered By: Robert Ledezma on 10-21-2023 ALP [Catalytic activity/Vol] 126 U/L 34-104 [facility] Alpha tocopherol [Mass/volum e] in Serum or PlasmaOrdered By: Robert Ledezma on 10-21-2023 Alpha tocopherol [Mass/Vol] 2.4 mg/L Low 9.0-29.0 [facility] Comment on above: This test was develo ped and its performance characteristicsdetermined by [facility]. It has not been cleared orapproved by the Food and Drug Administration. Aspartate aminotransferase [ Enzymatic activity/volume] in Serum or PlasmaOrdered By: Robert Ledezma on 10-21-2023 AST [Catalytic activity/Vol] 39 U/L 13-39 [facility] Basophils Auto (Bld) [#/Vol] Ordered By: Robert Ledezma on 10-21-2023 Basophils (Bld) [#/Vol] 0.0 10*3/uL 0.0-0.2 [facility] Basophils/100 WBC Auto (Bld) Ordered By: Robert Ledezma on 10-21-2023 Basophils/100 WBC (Bld) 0.7 % . [facility] Bilirubin.total [Mass/volume ] in Serum or PlasmaOrdered By: Robert Ledezma on 10-21-2023 Bilirubin [Mass/Vol] 0.4 mg/dL 0.3-1.0 [facility] Blood selenium measurement ( mass/volume)Ordered By: Robert Ledezma on 10-21-2023 Selenium (Bld) [Mass/Vol] 130 ug/L 93-198 [facility] Comment on above: This test was develo ped and its performance characteristicsdetermined by [employer]. It has not been cleared orapproved by the Food and Drug Administration.Performed at: [facility] [employer] [id number] Director: London Vargas MD, Phone: [phone] Blood thiamine measurement ( moles/volume)Ordered By: Robert Ledezma on 10-21-2023 Thiamine (Bld) [Moles/Vol] 127.6 nmol/L 66.5-200.0 [facility] Comment on above: This test was develo ped and its performance characteristicsdetermined by [employer]. It has not been cleared orapproved by the Food and Drug Administration.Performed at: [facility] [employer] [id number] Director: London Vargas MD, Phone: [phone] Calcium [Mass/volume] in Ser um or PlasmaOrdered By: Robert Ledezma on 10-21-2023 Calcium [Mass/Vol] 8.6 mg/dL 8.6-10.3 [facility] Carbon dioxide, total [Moles /volume] in Serum or PlasmaOrdered By: Robert Ledezma on 10-21-2023 CO2 [Moles/Vol] 28.4 mmol/L 21.0-31.0 [facility] Chloride [Moles/volume] in S maurilio or PlasmaOrdered By: Robert Ledezma on 10-21-2023 Chloride [Moles/Vol] 109 mmol/L 98-107 [facility] Creatinine [Mass/volume] in Serum or PlasmaOrdered By: Robert Ledezma on 10-21-2023 Creatinine [Mass/Vol] 0.62 mg/dL 0.60-1.20 [facility] Eosinophils Auto (Bld) [#/Vo l]Ordered By: Robert Ledezma on 10-21-2023 Eosinophils (Bld) [#/Vol] 0.2 10*3/uL 0.0-0.45 [facility] Eosinophils/100 WBC Auto (Bl d)Ordered By: Robert Ledezma on 10-21-2023 Eosinophils/100 WBC (Bld) 5.9 % . [facility] Erythrocyte distribution wid th Auto (RBC) [Ratio]Ordered By: Robert Ledezma on 10-21-2023 Erythrocyte distribution width (RBC) [Ratio] 13.7 % 11.9-15.3 [facility] Ferritin [Mass/volume] in Se rum or PlasmaOrdered By: Robert Ledezma on 10-21-2023 Ferritin [Mass/Vol] 51.5 ng/mL 11.0-306.8 [facility] Folate [Mass/volume] in Seru m or PlasmaOrdered By: Robert Ledezma on 10-21-2023 Folate [Mass/Vol] 10.1 ng/mL >5.9 [facility] Comment on above: Folate reference ran ge: >5.9 ng/mlThe WHO technical consultation on folate and vitamin [id number] has determined that folate concentrations lessthan 4 ng/ml are considered deficient. Gamma-tocopherol measurement (mass/volume)Ordered By: Robert Ledezma on 10-21-2023 Gamma tocopherol [Mass/Vol] 0.6 mg/L 0.5-4.9 [facility] Comment on above: This test was devgiovannio godwin and its performance characteristicsdetermined by [facility]. It has not been cleared orapproved by the Food and Drug Administration.Reference intervals for alpha and gamma-tocopheroldetermined from National Health and Nutrition ExaminationSurvey, 9082-1427. Individuals with alpha-tocopherol levelsless than 5.0 mg/L are considered vitamin E deficient. Globulin Calc (S) [Mass/Vol] Ordered By: Robert Ledezma on 10-21-2023 Globulin (S) [Mass/Vol] 2.1 g/dL [facility] Glucose [Mass/volume] in Ser um or PlasmaOrdered By: Robert Ledezma on 10-21-2023 Glucose [Mass/Vol] 75 mg/dL 70-100 [facility] Comment on above: ADA recommended refe rence rangeRandom Glucose Reference Range is dependent on time and content of last meal. Glucose of more than 200 mg/dL in a nonstressed, ambulatory subject supports the diagnosis of Diabetes Mellitus. Hematocrit Auto (Bld) [Volum e fraction]Ordered By: Robert Ledezma on 10-21-2023 Hematocrit (Bld) [Volume fraction] 40.5 % 34.0-46.4 [facility] Hemoglobin [Mass/volume] in BloodOrdered By: Robert Ledezma on 10-21-2023 Hemoglobin (Bld) [Mass/Vol] 13.4 g/dL 11.8-15.4 [facility] Iron [Mass/volume] in Serum or PlasmaOrdered By: Robert Ledezma on 10-21-2023 Iron [Mass/Vol] 67 ug/dL 50-212 [facility] Iron binding capacity [Mass/ volume] in Serum or PlasmaOrdered By: Robert Ledezma on 10-21-2023 Iron binding capacity [Mass/Vol] 375 ug/dL 255-450 [facility] Iron saturation [Mass Fracti on] in Serum or PlasmaOrdered By: Robert Ledezma on 10-21-2023 Iron saturation [Mass fraction] 17.9 % 20-50 [facility] Leukocytes [#/volume] correc zee for nucleated erythrocytes in Blood by Automated counOrdered By: Robert Ledezma on 10-21-2023 WBC corrected for nucl RBC Auto (Bld) [#/Vol] 4.0 10*3/uL 3.8-11.6 [facility] Lymphocytes Auto (Bld) [#/Vo l]Ordered By: Robert Ledezma on 10-21-2023 Lymphocytes (Bld) [#/Vol] 0.7 10*3/uL 1.00-4.8 [facility] Lymphocytes/100 WBC Auto (Bl d)Ordered By: Robert Ledezma on 10-21-2023 Lymphocytes/100 WBC (Bld) 17.1 % . [facility] MCH Auto (RBC) [Entitic mass ]Ordered By: Robert Ledezma on 10-21-2023 MCH (RBC) [Entitic mass] 31.9 pg 24.7-34.3 [facility] MCHC Auto (RBC) [Mass/Vol]Or dered By: Robert Ledezma on 10-21-2023 MCHC (RBC) [Mass/Vol] 33.0 g/dL 32.0-35.0 [facility] MCV Auto (RBC) [Entitic vol] Ordered By: Robert Ledezma on 10-21-2023 MCV (RBC) [Entitic vol] 96.5 fL 80-100 [facility] Monocytes Auto (Bld) [#/Vol] Ordered By: Robert Ledezma on 10-21-2023 Monocytes (Bld) [#/Vol] 0.4 10*3/uL 0.0-0.8 [facility] Monocytes/100 WBC Auto (Bld) Ordered By: Robert Ledezma on 10-21-2023 Monocytes/100 WBC (Bld) 10.0 % . [facility] Neutrophils Auto (Bld) [#/Vo l]Ordered By: Robert Ledezma on 10-21-2023 Neutrophils (Bld) [#/Vol] 2.7 10*3/uL 1.8-7.7 [facility] Neutrophils/100 WBC Auto (Bl d)Ordered By: Robert Ledezma on 10-21-2023 Neutrophils/100 WBC (Bld) 66.3 % . [facility] No Panel InformationOrdered By: Robert Ledezma on 10-21-2023 Estimated GFR (CKD-EPI) > 60.0 mL/Min [facility] Creatinine Clearance (Chem 65.78 [facility] Vitamin C level 0.9 mg/dL 0.4-2.0 [facility] Comment on above: This test was develo ped and its performance characteristicsdetermined by [facility]. It has not been cleared orapproved by the Food and Drug Administration.Vitamin C deficiency is generally defined as plasma orserum concentrations less than 0.2 mg/dL and levels between0.2 and 0.4 mg/dL are considered low.Performed at: [facility] [address] [id number] Director: London Vargas MD, Phone: [phone] Nucleated erythrocytes [Pres ence] in Blood by Automated countOrdered By: Robert Ledezma on 10-21-2023 Nucleated RBC Auto Ql (Bld) 0.1 /100{WBC} 0-0.5 [facility] Plasma zinc measurementOrder ed By: Robert Ledezma on 10-21-2023 Zinc [Mass/Vol] 56 ug/dL 44-115 [facility] Comment on above: This test was develo ped and its performance characteristicsdetermined by [employer]. It has not been cleared orapproved by the Food and Drug Administration. Detection Limit = 5Performed at: [employer] [id number] Director: London Vargas MD, Phone: [phone] Platelet mean volume Auto (B ld) [Entitic vol]Ordered By: Robert Ledezma on 10-21-2023 Platelet mean volume (Bld) [Entitic vol] 9.6 fL 6.3-10.7 [facility] Platelets Auto (Bld) [#/Vol] Ordered By: Robert Ledezma on 10-21-2023 Platelets (Bld) [#/Vol] 180 10*3/uL 150-450 [facility] Potassium [Moles/volume] in Serum or PlasmaOrdered By: Robert Leedzma on 10-21-2023 Potassium [Moles/Vol] 4.2 mmol/L 3.5-5.1 [facility] Protein [Mass/volume] in Ser um or PlasmaOrdered By: Robert Ledezma on 10-21-2023 Protein [Mass/Vol] 5.9 g/dL 6.4-8.9 [facility] RBC Auto (Bld) [#/Vol]Ordere d By: Robert Ledezma on 10-21-2023 RBC (Bld) [#/Vol] 4.20 10*6/uL 3.60-5.00 [facility] Retinol [Mass/volume] in Ser um or PlasmaOrdered By: Robert Ledezma on 10-21-2023 Retinol [Mass/Vol] 43.5 ug/dL 22.0-69.5 [facility] Comment on above: Reference intervals for vitamin A determined from [facility] studies. Individuals with vitamin A less than 20ug/dL are considered vitamin A deficient and those withserum concentrations less than 10 ug/dL are consideredseverely deficient.This test was developed and its performance characteristicsdetermined by [employer]. It has not been cleared orapproved by the Food and Drug Administration.Performed at: [address] [id number] Director: London Vargas MD, Phone: [phone] Serum or plasma 25-hydroxyca lciferol measurement (mass/volume)Ordered By: Robert Ledezma on 10-21-2023 25-hydroxyvitamin D2 [Mass/Vol] 30 ng/mL . [facility] Comment on above: This test was develo ped and its performance characteristicsdetermined by [employer]. It has not been cleared or approvedby the Food and Drug Administration. Serum or plasma 25-hydroxyvi tamin D measurement (mass/volume)Ordered By: Robert Ledezma on 10-21-2023 25-hydroxyvitamin D [Mass/Vol] 33 ng/mL . [facility] Comment on above: Reference Range:All Ages: Target levels 30 - 100 Serum or plasma albumin/glob ulin mass ratioOrdered By: Robert Ledezma on 10-21-2023 Albumin/Globulin [Mass ratio] 1.8 {ratio} [facility] Serum or plasma anion gap de terminationOrdered By: Robert Ledezma on 10-21-2023 Anion gap [Moles/Vol] 8.8 mmol/L 6.0-15.0 [facility] Serum or plasma calcidiol me asurement (mass/volume)Ordered By: Robert Ledezma on 10-21-2023 25-hydroxyvitamin D3 [Mass/Vol] 3.3 ng/mL . [facility] Comment on above: This test was develo ped and its performance characteristicsdetermined by [employer]. It has not been cleared or approvedby the Food and Drug Administration.Performed at: [facility] [employer] [id number] [place], [place] [id number] Director: Ajit Mejía MD, Phone: [phone] Serum or plasma methylmalona te measurement (moles/volume)Ordered By: Robert Ledezma on 10-21-2023 Methylmalonate [Moles/Vol] 206 nmol/L 0-378 [facility] Comment on above: This test was develo ped and its performance characteristicsdetermined by [employer]. It has not been cleared orapproved by the Food and Drug Administration.Performed at: [facility] [employer] [id number] Director: London Vargas MD, Phone: [phone] Serum or plasma pyridoxine m easurement (mass/volume)Ordered By: Robert Ledezma on 10-21-2023 Pyridoxine [Mass/Vol] 12.3 ug/L 3.4-65.2 [facility] Comment on above: This test was develo ped and its performance characteristicsdetermined by [employer]. It has not been cleared orapproved by the Food and Drug Administration. Deficiency: <3.4 Marginal: 3.4 - 5.1 Adequate: >5.1Performed at: [facility] [employer] [id number] Director: London Vargas MD, Phone: [phone] Sodium [Moles/volume] in Ser um or PlasmaOrdered By: Robert Ledezma on 10-21-2023 Sodium [Moles/Vol] 142 mmol/L 136-145 [facility] Transferrin [Mass/volume] in Serum or PlasmaOrdered By: Robert Ledezma on 10-21-2023 Transferrin [Mass/Vol] 268 mg/dL 203-362 [facility] Urea nitrogen [Mass/volume] in Serum or PlasmaOrdered By: Robert Ledezma on 10-21-2023 Urea nitrogen [Mass/Vol] 12 mg/dL 7 [facility] Vitamin B12 ser/plasOrdered By: Robert Ledezma on 10-21-2023 Cobalamin (Vitamin B12) [Mass/Vol] 588 pg/mL 180-914 [facility] WBC Auto (Bld) [#/Vol]Ordere d By: Robert Ledezma on 10-21-2023 WBC (Bld) [#/Vol] 4.0 10*3/uL 3.8-11.6 [facility] Activated partial thrombopla stin time (aPTT) in platelet poor plasma by coagulation aOrdered By: Catracho Ferguson on 09-29-2023 aPTT Coag (PPP) [Time] 32.5 s 25.1-36.5 [facility] Comment on above: A hematocrit value g reater than 55% may lead to inaccurate results in coagulation testing. Patients having hematocrit values >55% require a special collection tube for coagulation studies. Please contact the laboratory at [phone] for redraw instructions. INR in Platelet poor plasma by Coagulation assayOrdered By: Catracho Ferguson on 09-29-2023 INR Coag (PPP) [Relative time] 1.1 {INR} [facility] Comment on above: INR Therapeutic Rang [...] with mechanical heart valves: 3 - 4.5 Prothrombin time (PT)Ordered By: Catracho Ferguson on 09-29-2023 PT Coag (PPP) [Time] 12.1 s 9.0-12.9 [facility] Comment on above: A hematocrit value g reater than 55% may lead to inaccurate results in coagulation testing. Patients having hematocrit values >55% require a special collection tube for coagulation studies. Please contact the laboratory at [phone] for redraw instructions. Basic metabolic 1998 panelon 09-16-2023 Anion gap [Moles/Vol] 7.6 mmol/L 6.0 - 15.0 [facility] Calcium [Mass/Vol] 8.5 mg/dL Low 8.6 - 10. 3 mg/dL [facility] Chloride [Moles/Vol] 109 mmol/L High 98 - 10 7 mmol/L [facility] CO2 [Moles/Vol] 29.4 mmol/L 21.0 - 31.0 mmol/L [facility] Creatinine (U) [Mass/Vol] 0.64 mg/dL 0.60 - 1.20 mg/dL [facility] GFR/1.73 sq M.predicted MDRD (S/P/Bld) [Vol rate/Area] mL/min/{1.73_m2} [facility] Glucose [Mass/Vol] 84 mg/dL 70 - 100 mg/dL [facility] Comment on above: Random Glucose Refer ence Range is dependent on time and content of last meal. Glucose of more than 200 mg/dL in a nonstressed, ambulatory subject supports the diagnosis of Diabetes Mellitus. ADA recommended reference range Interpretation and review of laboratory results Abnormal [facility] Potassium [Moles/Vol] 4.0 mmol/L 3.5 - 5.1 mmol/L [facility] Sodium [Moles/Vol] 142 mmol/L 136 - 145 mmol/L [facility] Urea nitrogen [Mass/Vol] 8 mg/dL 7 - 25 mg/dL [facility] Basophils Auto (Bld) [#/Vol] Ordered By: Neto Burton on 09-16-2023 Basophils (Bld) [#/Vol] 0.0 10*3/uL 0.0-0.2 [facility] Basophils/100 WBC Auto (Bld) Ordered By: Neto Burton on 09-16-2023 Basophils/100 WBC (Bld) 0.7 % . [facility] CBC W Auto Differential pane l (Bld)on 09-16-2023 Basophils (Bld) [#/Vol] 0.0 10*3/uL 0.0 - 0.2 10*3/uL [facility] Basophils/100 WBC Manual cnt (Syn fld) 0.7 % . [facility] Eosinophils (Bld) [#/Vol] 0.1 10*3/uL 0.0 - 0.45 10*3/uL [facility] Eosinophils/100 WBC Manual cnt (Syn fld) 3.6 % . [facility] Erythrocyte distribution width (RBC) [Ratio] 13.0 % 11.9 - 15.3 % [facility] Hematocrit (Bld) [Volume fraction] 38.6 % 34.0 - 46.4 % [facility] Hemoglobin (Bld) [Mass/Vol] 12.9 g/dL 11.8 - 15.4 g/dL [facility] Lymphocytes (Bld) [#/Vol] 1.0 10*3/uL 1.00 - 4.8 10*3/uL [facility] Lymphocytes/100 WBC Manual cnt (Syn fld) 24.2 % . [facility] MCH (RBC) [Entitic mass] 32.0 pg 24.7 - 34.3 pg [facility] MCHC (RBC) [Mass/Vol] 33.5 g/dL 32.0 - 35.0 g/dL [facility] MCV (RBC) [Entitic vol] 95.6 fL 80 - 100 fL [facility] Monocytes (Bld) [#/Vol] 0.4 10*3/uL 0.0 - 0.8 10*3/uL [facility] Monocytes+Macrophages/ 100 WBC Manual cnt (Syn fld) 10.8 % . [facility] Neutrophils (Bld) [#/Vol] 2.5 10*3/uL 1.8 - 7.7 10*3/uL [facility] Neutrophils/100 WBC Manual cnt (Syn fld) 60.7 % . [facility] NRBC 0.2 /100{WBC} 0 - 0.5 /100{WBC} [facility] Platelet mean volume (Bld) [Entitic vol] 9.6 fL 6.3 - 10.7 fL [facility] Platelets (Bld) [#/Vol] 159 10*3/uL 150 - 450 10*3/uL [facility] RBC LM.HPF (Urine sed) [#/Area] 4.04 /[HPF] 3.60 - 5.00 [facility] WBC (Bld) [#/Vol] 4.1 10*3/uL 3.8 - 11.6 10*3/uL [facility] WBC LM.HPF (Urine sed) [#/Area] 4.1 10*3/uL 3.8 - 11.6 10*3/uL [facility] Calcium [Mass/volume] in Ser um or PlasmaOrdered By: Neto Burton on 09-16-2023 Calcium [Mass/Vol] 8.5 mg/dL 8.6-10.3 [facility] Carbon dioxide, total [Moles /volume] in Serum or PlasmaOrdered By: Neto Burton on 09-16-2023 CO2 [Moles/Vol] 29.4 mmol/L 21.0-31.0 [facility] Chloride [Moles/volume] in S maurilio or PlasmaOrdered By: Neto Burton on 09-16-2023 Chloride [Moles/Vol] 109 mmol/L 98-107 [facility] Creatinine [Mass/volume] in Serum or PlasmaOrdered By: Neto Burton on 09-16-2023 Creatinine [Mass/Vol] 0.64 mg/dL 0.60-1.20 [facility] Eosinophils Auto (Bld) [#/Vo l]Ordered By: Neto Burton on 09-16-2023 Eosinophils (Bld) [#/Vol] 0.1 10*3/uL 0.0-0.45 [facility] Eosinophils/100 WBC Auto (Bl d)Ordered By: Neto Burton on 09-16-2023 Eosinophils/100 WBC (Bld) 3.6 % . [facility] Erythrocyte distribution wid th Auto (RBC) [Ratio]Ordered By: Neto Burton on 09-16-2023 Erythrocyte distribution width (RBC) [Ratio] 13.0 % 11.9-15.3 [facility] Glucose [Mass/volume] in Ser um or PlasmaOrdered By: Neto Burton on 09-16-2023 Glucose [Mass/Vol] 84 mg/dL 70-100 [facility] Comment on above: ADA recommended refe rence rangeRandom Glucose Reference Range is dependent on time and content of last meal. Glucose of more than 200 mg/dL in a nonstressed, ambulatory subject supports the diagnosis of Diabetes Mellitus. Hematocrit Auto (Bld) [Volum e fraction]Ordered By: Neto Burton on 09-16-2023 Hematocrit (Bld) [Volume fraction] 38.6 % 34.0-46.4 [facility] Hemoglobin [Mass/volume] in BloodOrdered By: Nteo Burton on 09-16-2023 Hemoglobin (Bld) [Mass/Vol] 12.9 g/dL 11.8-15.4 [facility] Leukocytes [#/volume] correc zee for nucleated erythrocytes in Blood by Automated counOrdered By: Neto Burton on 09-16-2023 WBC corrected for nucl RBC Auto (Bld) [#/Vol] 4.1 10*3/uL 3.8-11.6 [facility] Lymphocytes Auto (Bld) [#/Vo l]Ordered By: Neto Burton on 09-16-2023 Lymphocytes (Bld) [#/Vol] 1.0 10*3/uL 1.00-4.8 [facility] Lymphocytes/100 WBC Auto (Bl d)Ordered By: Neto Burton on 09-16-2023 Lymphocytes/100 WBC (Bld) 24.2 % . [facility] MCH Auto (RBC) [Entitic mass ]Ordered By: Neto Burton on 09-16-2023 MCH (RBC) [Entitic mass] 32.0 pg 24.7-34.3 [facility] MCHC Auto (RBC) [Mass/Vol]Or dered By: Neto Burton on 09-16-2023 MCHC (RBC) [Mass/Vol] 33.5 g/dL 32.0-35.0 [facility] MCV Auto (RBC) [Entitic vol] Ordered By: Neto Burton on 09-16-2023 MCV (RBC) [Entitic vol] 95.6 fL 80-100 [facility] Monocytes Auto (Bld) [#/Vol] Ordered By: Neto Burton on 09-16-2023 Monocytes (Bld) [#/Vol] 0.4 10*3/uL 0.0-0.8 [facility] Monocytes/100 WBC Auto (Bld) Ordered By: Neto Burton on 09-16-2023 Monocytes/100 WBC (Bld) 10.8 % . [facility] Neutrophils Auto (Bld) [#/Vo l]Ordered By: Neto Burton on 09-16-2023 Neutrophils (Bld) [#/Vol] 2.5 10*3/uL 1.8-7.7 [facility] Neutrophils/100 WBC Auto (Bl d)Ordered By: Neto Burton on 09-16-2023 Neutrophils/100 WBC (Bld) 60.7 % . [facility] No Panel InformationOrdered By: Neto Burton on 09-16-2023 Estimated GFR (CKD-EPI) > 60.0 mL/Min [facility] Creatinine Clearance (Chem N/A [facility] Nucleated erythrocytes [Pres ence] in Blood by Automated countOrdered By: Neto Burton on 09-16-2023 Nucleated RBC Auto Ql (Bld) 0.2 /100{WBC} 0-0.5 [facility] Platelet mean volume Auto (B ld) [Entitic vol]Ordered By: Neto Burton on 09-16-2023 Platelet mean volume (Bld) [Entitic vol] 9.6 fL 6.3-10.7 [facility] Platelets Auto (Bld) [#/Vol] Ordered By: Neto Burton on 09-16-2023 Platelets (Bld) [#/Vol] 159 10*3/uL 150-450 [facility] Potassium [Moles/volume] in Serum or PlasmaOrdered By: Neto Burton on 09-16-2023 Potassium [Moles/Vol] 4.0 mmol/L 3.5-5.1 [facility] RBC Auto (Bld) [#/Vol]Ordere d By: Neto Burton on 09-16-2023 RBC (Bld) [#/Vol] 4.04 10*6/uL 3.60-5.00 [facility] Serum or plasma anion gap de terminationOrdered By: Neto Burton on 09-16-2023 Anion gap [Moles/Vol] 7.6 mmol/L 6.0-15.0 [facility] Sodium [Moles/volume] in Ser um or PlasmaOrdered By: Neto Burton on 09-16-2023 Sodium [Moles/Vol] 142 mmol/L 136-145 [facility] Urea nitrogen [Mass/volume] in Serum or PlasmaOrdered By: Neto Burton on 09-16-2023 Urea nitrogen [Mass/Vol] 8 mg/dL 7-25 [facility] WBC Auto (Bld) [#/Vol]Ordere d By: Neto Burton on 09-16-2023 WBC (Bld) [#/Vol] 4.1 10*3/uL 3.8-11.6 [facility] - Cytologyon Microscopic observation Cyto stain Nom (Cvx) 2.3 [facility] Comment on above: INR 2.3/ PT 24 No Panel Informationon 09-09 Interpretation and review of laboratory results Normal [facility] Activated partial thrombopla stin time (aPTT) in platelet poor plasma by coagulation aOrdered By: Michael Ramirez on 06-10-2023 aPTT Coag (PPP) [Time] 30.5 s 25.1-36.5 [facility] Comment on above: A hematocrit value g reater than 55% may lead to inaccurate results in coagulation testing. Patients having hematocrit values >55% require a special collection tube for coagulation studies. Please contact the laboratory at [phone] for redraw instructions. Basophils Auto (Bld) [#/Vol] Ordered By: Michael Ramirez on 06-10-2023 Basophils (Bld) [#/Vol] 0.0 10*3/uL 0.0-0.2 [facility] Basophils/100 WBC Auto (Bld) Ordered By: Imad Asaad on 06-10-2023 Basophils/100 WBC (Bld) 0.4 % . [facility] Eosinophils Auto (Bld) [#/Vo l]Ordered By: Imad Asaad on 06-10-2023 Eosinophils (Bld) [#/Vol] 0.1 10*3/uL 0.0-0.45 [facility] Eosinophils/100 WBC Auto (Bl d)Ordered By: Imad Asaad on 06-10-2023 Eosinophils/100 WBC (Bld) 2.4 % . [facility] Erythrocyte distribution wid th Auto (RBC) [Ratio]Ordered By: Imad Asaad on 06-10-2023 Erythrocyte distribution width (RBC) [Ratio] 15.9 % 11.9-15.3 [facility] Hematocrit Auto (Bld) [Volum e fraction]Ordered By: Imad Asaad on 06-10-2023 Hematocrit (Bld) [Volume fraction] 38.6 % 34.0-46.4 [facility] Hemoglobin [Mass/volume] in BloodOrdered By: hiram Asahiram on 06-10-2023 Hemoglobin (Bld) [Mass/Vol] 12.9 g/dL 11.8-15.4 [facility] INR in Platelet poor plasma by Coagulation assayOrdered By: hiram [facility] on 06-10-2023 INR Coag (PPP) [Relative time] 1.3 {INR} [facility] Comment on above: INR Therapeutic Rang [...] erythrocytes in Blood by Automated counOrdered By: hiram Ramirez on 06-10-2023 WBC corrected for nucl RBC Auto (Bld) [#/Vol] 4.7 10*3/uL 3.8-11.6 [facility] Lymphocytes Auto (Bld) [#/Vo l]Ordered By: ad Asaad on 06-10-2023 Lymphocytes (Bld) [#/Vol] 0.7 10*3/uL 1.00-4.8 [facility] Lymphocytes/100 WBC Auto (Bl d)Ordered By: ad Asaad on 06-10-2023 Lymphocytes/100 WBC (Bld) 14.7 % . [facility] MCH Auto (RBC) [Entitic mass ]Ordered By: ad Asaad on 06-10-2023 MCH (RBC) [Entitic mass] 32.0 pg 24.7-34.3 [facility] MCHC Auto (RBC) [Mass/Vol]Or dered By: ad Asaad on 06-10-2023 MCHC (RBC) [Mass/Vol] 33.5 g/dL 32.0-35.0 [facility] MCV Auto (RBC) [Entitic vol] Ordered By: Imad Asaad on 06-10-2023 MCV (RBC) [Entitic vol] 95.4 fL 80-100 [facility] Monocytes Auto (Bld) [#/Vol] Ordered By: Imad Asaad on 06-10-2023 Monocytes (Bld) [#/Vol] 0.5 10*3/uL 0.0-0.8 [facility] Monocytes/100 WBC Auto (Bld) Ordered By: Imad Asaad on 06-10-2023 Monocytes/100 WBC (Bld) 9.9 % . [facility] Neutrophils Auto (Bld) [#/Vo l]Ordered By: Imad Asaad on 06-10-2023 Neutrophils (Bld) [#/Vol] 3.4 10*3/uL 1.8-7.7 [facility] Neutrophils/100 WBC Auto (Bl d)Ordered By: Imad Asaad on 06-10-2023 Neutrophils/100 WBC (Bld) 72.6 % . [facility] Nucleated erythrocytes [Pres ence] in Blood by Automated countOrdered By: Imad Asaad on 06-10-2023 Nucleated RBC Auto Ql (Bld) 0.1 /100{WBC} 0-0.5 [facility] Platelet mean volume Auto (B ld) [Entitic vol]Ordered By: Imad Asaad on 06-10-2023 Platelet mean volume (Bld) [Entitic vol] 9.8 fL 6.3-10.7 [facility] Platelets Auto (Bld) [#/Vol] Ordered By: Imad Asaad on 06-10-2023 Platelets (Bld) [#/Vol] 152 10*3/uL 150-450 [facility] Prothrombin time (PT)Ordered By: Imad Asaad on 06-10-2023 PT Coag (PPP) [Time] 15.1 s 9.0-12.9 [facility] Comment on above: A hematocrit value g reater than 55% may lead to inaccurate results in coagulation testing. Patients having hematocrit values >55% require a special collection tube for coagulation studies. Please contact the laboratory at [phone] for redraw instructions. RBC Auto (Bld) [#/Vol]Ordere d By: Michael Ramirez on 06-10-2023 RBC (Bld) [#/Vol] 4.04 10*6/uL 3.60-5.00 [facility] WBC Auto (Bld) [#/Vol]Ordere d By: Michael Ramirez on 06-10-2023 WBC (Bld) [#/Vol] 4.7 10*3/uL 3.8-11.6 [facility] Basophils Auto (Bld) [#/Vol] Ordered By: Liana Morales on 04-10-2023 Basophils (Bld) [#/Vol] 0.0 10*3/uL 0.0-0.2 [facility] Basophils/100 WBC Auto (Bld) Ordered By: Laina Morales on 04-10-2023 Basophils/100 WBC (Bld) 0.5 % . [facility] Eosinophils Auto (Bld) [#/Vo l]Ordered By: Laina Morales on 04-10-2023 Eosinophils (Bld) [#/Vol] 0.0 10*3/uL 0.0-0.45 [facility] Eosinophils/100 WBC Auto (Bl d)Ordered By: Laina Morales on 04-10-2023 Eosinophils/100 WBC (Bld) 0.5 % . [facility] Erythrocyte distribution wid th Auto (RBC) [Ratio]Ordered By: Laina Morales on 04-10-2023 Erythrocyte distribution width (RBC) [Ratio] 14.6 % 11.9-15.3 [facility] Ferritin [Mass/volume] in Se rum or PlasmaOrdered By: Laina Morales on 04-10-2023 Ferritin [Mass/Vol] 6.2 ng/mL 11.0-306.8 [facility] Hematocrit Auto (Bld) [Volum e fraction]Ordered By: Laina Morales on 04-10-2023 Hematocrit (Bld) [Volume fraction] 38.2 % 34.0-46.4 [facility] Hemoglobin [Mass/volume] in BloodOrdered By: Laina Morales on 04-10-2023 Hemoglobin (Bld) [Mass/Vol] 12.6 g/dL 11.8-15.4 [facility] Iron [Mass/volume] in Serum or PlasmaOrdered By: Laina Morales on 04-10-2023 Iron [Mass/Vol] 66 ug/dL 50-212 [facility] Iron binding capacity [Mass/ volume] in Serum or PlasmaOrdered By: Laina Morales on 04-10-2023 Iron binding capacity [Mass/Vol] 494 ug/dL 255-450 [facility] Iron saturation [Mass Fracti on] in Serum or PlasmaOrdered By: Laina Morales on 04-10-2023 Iron saturation [Mass fraction] 13.4 % 20-50 [facility] Leukocytes [#/volume] correc zee for nucleated erythrocytes in Blood by Automated counOrdered By: Laina Morales on 04-10-2023 WBC corrected for nucl RBC Auto (Bld) [#/Vol] 6.6 10*3/uL 3.8-11.6 [facility] Lymphocytes Auto (Bld) [#/Vo l]Ordered By: Laina Morales on 04-10-2023 Lymphocytes (Bld) [#/Vol] 0.9 10*3/uL 1.00-4.8 [facility] Lymphocytes/100 WBC Auto (Bl d)Ordered By: Laina Morales on 04-10-2023 Lymphocytes/100 WBC (Bld) 14.1 % . [facility] MCH Auto (RBC) [Entitic mass ]Ordered By: Laina Morales on 04-10-2023 MCH (RBC) [Entitic mass] 30.4 pg 24.7-34.3 [facility] MCHC Auto (RBC) [Mass/Vol]Or dered By: Laina Morales on 04-10-2023 MCHC (RBC) [Mass/Vol] 32.9 g/dL 32.0-35.0 [facility] MCV Auto (RBC) [Entitic vol] Ordered By: Laina Morales on 04-10-2023 MCV (RBC) [Entitic vol] 92.6 fL 80-100 [facility] Monocytes Auto (Bld) [#/Vol] Ordered By: Laina Morales on 04-10-2023 Monocytes (Bld) [#/Vol] 0.6 10*3/uL 0.0-0.8 [facility] Monocytes/100 WBC Auto (Bld) Ordered By: Laina Morales on 04-10-2023 Monocytes/100 WBC (Bld) 8.7 % . [facility] Neutrophils Auto (Bld) [#/Vo l]Ordered By: Laina Morales on 04-10-2023 Neutrophils (Bld) [#/Vol] 5.0 10*3/uL 1.8-7.7 [facility] Neutrophils/100 WBC Auto (Bl d)Ordered By: Laina Morales on 04-10-2023 Neutrophils/100 WBC (Bld) 76.2 % . [facility] Nucleated erythrocytes [Pres ence] in Blood by Automated countOrdered By: Laina Morales on 04-10-2023 Nucleated RBC Auto Ql (Bld) 0.1 /100{WBC} 0-0.5 [facility] Platelet mean volume Auto (B ld) [Entitic vol]Ordered By: Laina Morales on 04-10-2023 Platelet mean volume (Bld) [Entitic vol] 10.0 fL 6.3-10.7 [facility] Platelets Auto (Bld) [#/Vol] Ordered By: Laina Morales on 04-10-2023 Platelets (Bld) [#/Vol] 183 10*3/uL 150-450 [facility] RBC Auto (Bld) [#/Vol]Ordere d By: Laina Morales on 04-10-2023 RBC (Bld) [#/Vol] 4.13 10*6/uL 3.60-5.00 [facility] Transferrin [Mass/volume] in Serum or PlasmaOrdered By: Laina Morales on 04-10-2023 Transferrin [Mass/Vol] 353 mg/dL 203-362 [facility] WBC Auto (Bld) [#/Vol]Ordere d By: Laina Andrew on 04-10-2023 WBC (Bld) [#/Vol] 6.6 10*3/uL 3.8-11.[address] [facility] [address] Chest w/Contraston 2022 CT [...] by Luisito Jade on 09/30/2022 1150 Normal [facility] [employer] Albumin [Mass/volume] in Ser um or PlasmaOrdered By: Tyrese Swanson on 06-29-2022 Albumin [Mass/Vol] 3.2 g/dL 3.2-5.5 [facility] Creatinine and Glomerular fi ltration rate.predicted panel (S/P/Bld)Ordered By: Tyrese Swanson on 06-29-2022 Creatinine [Mass/Vol] 0.65 mg/dL 0.44-1.03 [facility] [place] Estimated glomerular filtrat ion rate (GFR) non- AmericanOrdered By: Tyrese Swanson on 06-29-2022 GFR/1.73 sq M.predicted among non-blacks MDRD (S/P/Bld) [Vol rate/Area] > 60 mL/Min [facility] No Panel InformationOrdered By: Tyrese Swanson on 06-29-2022 25-Hydroxy Vitamin D Total See comment 30-100 [facility] Comment on above: Specimen hemolyzed, redraw requestedVITAMIN D STATUS 25(OH)VITAMIN D RANGE (ng/mL) Deficient <20 Insufficient 20 to <30Sufficient 30 to 100Reference: Rafi MF,Phill NC, Nael GARCÍA, et al. Evaluation,treatment, and prevention of vitamin D deficiency; an Endocrine Society clinical practice guideline. JCEM. 2010; 96(7):1911-30. Estimated GFR () > 60 mL/Min [facility] Comment on above: GFR estimated refere nce range: According to KDOQI guidelines, <60 ml/min/1.73m2 is sufficient to diagnose a patient with chronic kidney disease. Magnesium Level See comment 1.6-2.6 [facility] Comment on above: Specimen hemolyzed, redraw requested Pharmacy Creatinine Clearance (Chem N/A [facility] Phosphate [Mass/volume] in S maurilio or PlasmaOrdered By: Tyrese Swanson on 06-29-2022 Phosphate [Mass/Vol] 4.1 mg/dL 2.5-4.6 [facility] Serum or plasma anion gap de terminationOrdered By: Tyrese Swanson on 06-29-2022 Anion gap [Moles/Vol] TNP [facility] [place] Comment on above: Test not performed Serum or plasma calcium lissa urement (mass/volume)Ordered By: Tyrese Swanson on 06-29-2022 Calcium [Mass/Vol] 8.7 mg/dL 8.2-10.2 [facility] Serum or plasma chloride joshua surement (moles/volume)Ordered By: Tyrese Swanson on 06-29-2022 Chloride [Moles/Vol] 107 mmol/L 95-114 [facility] Serum or plasma glucose lissa urement (mass/volume)Ordered By: Tyrese Swanson on 06-29-2022 Glucose [Mass/Vol] 83 mg/dL 70-100 [facility] Comment on above: ADA recommended refe rence rangeRandom Glucose Reference Range is dependent on time and content of last meal. Glucose of more than 200 mg/dL in a nonstressed, ambulatory subject supports the diagnosis of Diabetes Mellitus. Serum or plasma intact parat hyroid hormone measurement (mass/volume)Ordered By: Tyrese Swanson on 06-29-2022 Parathyrin.intact [Mass/Vol] 269.7 pg/mL [facility] Serum or plasma potassium me asurement (moles/volume)Ordered By: Tyrese Swanson on 06-29-2022 Potassium [Moles/Vol] See comment 3.5-5.1 [facility] Comment on above: Specimen hemolyzed, redraw requested Serum or plasma sodium measu rement (moles/volume)Ordered By: Tyrese Swanson on 06-29-2022 Sodium [Moles/Vol] 138 mmol/L 136-146 [facility] Serum or plasma total carbon dioxide measurement (moles/volume)Ordered By: Tyrese Swanson on 06-29-2022 CO2 [Moles/Vol] 26.9 mmol/L 22.0-30.0 [facility] Serum or plasma urea nitroge n measurement (mass/volume)Ordered By: Tyrese Swanson on 06-29-2022 Urea nitrogen [Mass/Vol] 8 mg/dL 04-26 [facility] Basophils Auto (Bld) [#/Vol] Ordered By: Radha Blancas on 04-18-2022 Basophils (Bld) [#/Vol] 0.0 10*3/uL 0.0-0.2 [facility] Basophils/100 WBC Auto (Bld) Ordered By: Radha Blancas on 04-18-2022 Basophils/100 WBC (Bld) 1.0 % . [facility] CT biopsyOrdered By: Radha Anguiano on 04-18-2022 Transferrin [Mass/Vol] 329 mg/dL 180-380 [facility] Eosinophils Auto (Bld) [#/Vo l]Ordered By: Radha Blancas on 04-18-2022 Eosinophils (Bld) [#/Vol] 0.2 10*3/uL 0.0-0.45 [facility] Eosinophils/100 WBC Auto (Bl d)Ordered By: Radha Blancas on 04-18-2022 Eosinophils/100 WBC (Bld) 4.9 % . [facility] Erythrocyte distribution wid th Auto (RBC) [Ratio]Ordered By: Radha Blancas on 04-18-2022 Erythrocyte distribution width (RBC) [Ratio] 14.0 % 11.9-15.3 [facility] Ferritin [Mass/volume] in Se rum or PlasmaOrdered By: Radha Blancas on 04-18-2022 Ferritin [Mass/Vol] 13.0 ng/mL 11-306.8 [facility] Hematocrit Auto (Bld) [Volum e fraction]Ordered By: Radha Blancas on 04-18-2022 Hematocrit (Bld) [Volume fraction] 39.4 % 34.0-46.4 [facility] Hemoglobin [Mass/volume] in BloodOrdered By: Radha Blancas on 04-18-2022 Hemoglobin (Bld) [Mass/Vol] 13.0 g/dL 11.8-15.4 [facility] Iron [Mass/volume] in Serum or PlasmaOrdered By: Radha Blancas on 04-18-2022 Iron [Mass/Vol] 81 ug/dL 40-150 [facility] Iron binding capacity [Mass/ volume] in Serum or PlasmaOrdered By: Radha Blancas on 04-18-2022 Iron binding capacity [Mass/Vol] 461 ug/dL 255-450 [facility] Iron saturation [Mass Fracti on] in Serum or PlasmaOrdered By: Radha Blancas on 04-18-2022 Iron saturation [Mass fraction] 17.6 % 20-50 [facility] Laboratory - Hematology and Cell countsOrdered By: Radha Blancas on 04-18-2022 Nucleated RBC/100 WBC (Bld) [Ratio] 0.1 % 0-0.5 [facility] Leukocytes [#/volume] in Blo od by Automated countOrdered By: Radha Blancas on 04-18-2022 WBC (Bld) [#/Vol] 5.0 10*3/uL 4.5-11.0 [facility] Lymphocytes Auto (Bld) [#/Vo l]Ordered By: Radha Blancas on 04-18-2022 Lymphocytes (Bld) [#/Vol] 0.8 10*3/uL 1.00-4.8 [facility] Lymphocytes/100 WBC Auto (Bl d)Ordered By: Radha Blancas on 04-18-2022 Lymphocytes/100 WBC (Bld) 17.1 % . [facility] MCH Auto (RBC) [Entitic mass ]Ordered By: Radha Blancas on 04-18-2022 MCH (RBC) [Entitic mass] 31.5 pg 24.7-34.3 [facility] MCHC Auto (RBC) [Mass/Vol]Or dered By: Radha Blancas on 04-18-2022 MCHC (RBC) [Mass/Vol] 33.0 g/dL 32.0-35.0 [facility] [place] MCV Auto (RBC) [Entitic vol] Ordered By: Radha Blancas on 04-18-2022 MCV (RBC) [Entitic vol] 95.4 fL 80-100 [facility] Monocytes Auto (Bld) [#/Vol] Ordered By: Radha Blancas on 04-18-2022 Monocytes (Bld) [#/Vol] 0.5 10*3/uL 0.0-0.8 [facility] Monocytes/100 WBC Auto (Bld) Ordered By: Radha Blancas on 04-18-2022 Monocytes/100 WBC (Bld) 11.0 % . [facility] Neutrophils Auto (Bld) [#/Vo l]Ordered By: Radha Blancas on 04-18-2022 Neutrophils (Bld) [#/Vol] 3.3 10*3/uL 1.8-7.7 [facility] Neutrophils/100 WBC Auto (Bl d)Ordered By: Radha Blancas on 04-18-2022 Neutrophils/100 WBC (Bld) 66.0 % . [facility] Platelet mean volume Auto (B ld) [Entitic vol]Ordered By: Radha Blancas on 04-18-2022 Platelet mean volume (Bld) [Entitic vol] 9.9 fL 6.3-10.7 [facility] Platelets Auto (Bld) [#/Vol] Ordered By: Radha Blancas on 04-18-2022 Platelets (Bld) [#/Vol] 184 10*3/uL 150-450 [facility] RBC Auto (Bld) [#/Vol]Ordere d By: Radha Blancas on 04-18-2022 RBC (Bld) [#/Vol] 4.13 10*6/uL 3.60-5.00 [facility] - Hematology and Cell countson 04-18-2020 WBC (Bld) [#/Vol] 4.1 10*3/uL Low 4.5-11.0 [facility] C-REACTIVE PROTEINon 020 CRP [Mass/Vol] 0.4 mg/L Normal <8.0 [facility] Comment on above: Performed By: #### 1 0231, 809, 6399, 8563, 353, 4420 #### [facility] [address] Critical Care Cns: Paul Dyer MD CBC (INCLUDES DIFF/PLT)on Basophils (Bld) [#/Vol] 0.052 10*3/uL Normal 0-200 [facility] Comment on above: Performed By: #### 1 0231, 809, 6399, 8563, 353, 4420 #### [facility] [address] [address] [place] [address] Critical Care Cns: Paul Dyer MD Basophils/100 WBC (Bld) 1.4 % Normal [facility] Comment on above: Performed By: #### 1 0231, 809, 6399, 8563, 353, 4420 #### [facility] [address] [address] [place] [address] Critical Care Cns: Paul Dyer MD Eosinophils (Bld) [#/Vol] 0.222 10*3/uL Normal 15-500 [facility] Comment on above: Performed By: #### 1 0231, 809, 6399, 8563, 353, 4420 #### [facility] [address] [address] , [address] [place] [address] Critical Care Cns: Paul Dyer MD Eosinophils/100 WBC (Bld) 6.0 % Normal [facility] Comment on above: Performed By: #### 1 0231, 809, 6399, 8563, 353, 4420 #### [facility] [address], [address] [place] [address] Critical Care Cns: Paul Dyer MD Erythrocyte distribution width (RBC) [Ratio] 12.7 % Normal 11.0-15.0 [facility] Comment on above: Performed By: #### 1 0231, 809, 6399, 8563, 353, 4420 #### [facility] [address], [address] [place] [address] Critical Care Cns: Paul Dyer MD Hematocrit (Bld) [Volume fraction] 40.6 % Normal 35.0-45.0 [facility] Comment on above: Performed By: #### 1 0231, 809, 6399, 8563, 353, 4420 #### [facility] [address], [address] [place] [address] Critical Care Cns: Paul Dyer MD Hemoglobin (Bld) [Mass/Vol] 13.5 g/dL Normal 11.7-15.5 [facility] Comment on above: Performed By: #### 1 0231, 809, 6399, 8563, 353, 4420 #### [facility] [address], [address] [place] [address] Critical Care Cns: Paul Dyer MD Lymphocytes (Bld) [#/Vol] 0.725 10*3/uL Low 850-3900 [facility] Comment on above: Performed By: #### 1 0231, 809, 6399, 8563, 353, 4420 #### [facility] [address], [address] [place] [address] Critical Care Cns: Paul Dyer MD Lymphocytes/100 WBC (Bld) 19.6 % Normal [facility] Comment on above: Performed By: #### 1 0231, 809, 6399, 8563, 353, 4420 #### [facility] [address], [address] [place] [address] Critical Care Cns: Paul Dyer MD MCH (RBC) [Entitic mass] 31.3 pg Normal 27.0-33.0 [facility] Comment on above: Performed By: #### 1 0231, 809, 6399, 8563, 353, 4420 #### [facility] [address], [address] [place] [address] Critical Care Cns: Paul Dyer MD MCHC (RBC) [Mass/Vol] 33.3 g/dL Normal 32.0-36.[address] [facility] Comment on above: Performed By: #### 1 0231, 809, 6399, 8563, 353, 4420 #### [facility] [address], [address] [place] [address] Critical Care Cns: Paul Dyer MD MCV (RBC) [Entitic vol] 94.0 fL Normal 80.0-100.0 [facility] Comment on above: Performed By: #### 1 0231, 809, 6399, 8563, 353, 4420 #### [facility] [address], [address] [place] [address] Critical Care Cns: Paul Dyer MD Monocytes (Bld) [#/Vol] 0.433 10*3/uL Normal 200-950 [facility] Comment on above: Performed By: #### 1 0231, 809, 6399, 8563, 353, 4420 #### [facility] [address], [address] [place] [address] Critical Care Cns: Paul Dyer MD Monocytes/100 WBC (Bld) 11.7 % Normal [facility] Comment on above: Performed By: #### 1 0231, 809, 6399, 8563, 353, 4420 #### [facility] [address], [address] [place] [address] Critical Care Cns: Paul Dyer MD Neutrophils (Bld) [#/Vol] 2.268 10*3/uL Normal 2822-5778 [facility] Comment on above: Performed By: #### 1 0231, 809, 6399, 8563, 353, 4420 #### [facility] [address], [address] [place] [address] Critical Care Cns: Paul Dyer MD Neutrophils/100 WBC (Bld) 61.3 % Normal [facility] Comment on above: Performed By: #### 1 0231, 809, 6399, 8563, 353, 4420 #### [facility] [address] [address] , [address] [place] [address] Critical Care Cns: Paul Dyer MD Platelet mean volume (Bld) [Entitic vol] 11.3 fL Normal 7.5-12.5 [facility] Comment on above: Performed By: #### 1 0231, 809, 6399, 8563, 353, 4420 #### [facility]-[address], [address] [place] [address] Critical Care Cns: Paul Dyer MD Platelets (Bld) [#/Vol] 194 10*3/uL Normal 140-400 [facility] Comment on above: Performed By: #### 1 0231, 809, 6399, 8563, 353, 4420 #### [facility]-[address], [address] [place] [address] Critical Care Cns: Paul Dyer MD RBC (Bld) [#/Vol] 4.32 10*6/uL Normal 3.80-5.10 [facility] Comment on above: Performed By: #### 1 0231, 809, 6399, 8563, 353, 4420 #### [facility]-[address], [address] [place] [address] Critical Care Cns: Paul Dyer MD WBC (Bld) [#/Vol] 3.7 10*3/uL Low 3.8-10.8 [facility] Comment on above: Performed By: #### 1 0231, 809, 6399, 8563, 353, 4420 #### [facility] [address] [address] , [address] [place] [address] Critical Care Cns: Paul Dyer MD COMPLEMENT COMPONENT C3Con 0 12-15-2019 COMPLEMENT COMPONENT C3C 118 mg/dL Normal 83-193 [facility] Comment on above: Performed By: #### 1 0231, 809, 6399, 8563, 353, 4420 #### [facility] [address], [address] [place] [address] Critical Care Cns: Paul Dyer MD COMPLEMENT COMPONENT C4Con 0 12-15-2019 COMPLEMENT COMPONENT C4C 21 mg/dL Normal 15-57 [facility] Comment on above: Performed By: #### 1 0231, 809, 6399, 8563, 353, 4420 #### [facility] [address] , [address] [place] [address] Critical Care Cns: Paul Dyer MD COMPREHENSIVE METABOLIC PANE [facility] 12-15-2019 Albumin [Mass/Vol] 3.9 g/dL Normal 3.6-5.1 [facility] Comment on above: Order Comment: FASTI NG:NO FASTING: NO Performed By: #### 1 0231, 809, 6399, 8563, 353, 4420 #### [facility]-[address], [address] [place] [address] Critical Care Cns: Paul Dyer MD Albumin/Globulin [Mass ratio] 1.6 (calc) Normal 1.0-2.5 [facility] Comment on above: Order Comment: FASTI NG:NO FASTING: NO Performed By: #### 1 0231, 809, 6399, 8563, 353, 4420 #### [facility]-[address], [address] [place] [address] Critical Care Cns: Paul Dyer MD ALP [Catalytic activity/Vol] 126 U/L Normal 37-153 [facility] Comment on above: Order Comment: FASTI NG:NO FASTING: NO Performed By: #### 1 0231, 809, 6399, 8563, 353, 4420 #### [facility] [address], [address] [place] [address] Critical Care Cns: Paul Dyer MD ALT [Catalytic activity/Vol] 56 U/L High 6-29 [facility] Comment on above: Order Comment: FASTI NG:NO FASTING: NO Performed By: #### 1 0231, 809, 6399, 8563, 353, 4420 #### [facility] [address] , [address] [place] [address] Critical Care Cns: Paul Dyer MD AST [Catalytic activity/Vol] 43 U/L High 10-35 [facility] Comment on above: Order Comment: FASTI NG:NO FASTING: NO Performed By: #### 1 0231, 809, 6399, 8563, 353, 4420 #### [facility]-[address], [address] [place] [address] Critical Care Cns: Paul Dyer MD Bilirubin [Mass/Vol] 0.5 mg/dL Normal 0.2-1.2 [facility] Comment on above: Order Comment: FASTI NG:NO FASTING: NO Performed By: #### 1 0231, 809, 6399, 8563, 353, 4420 #### [facility], [address] [place] [address] Critical Care Cns: Paul Dyer MD Calcium [Mass/Vol] 8.8 mg/dL Normal 8.6-10.4 [facility] Comment on above: Order Comment: FASTI NG:NO FASTING: NO Performed By: #### 1 0231, 809, 6399, 8563, 353, 4420 #### [facility], [address] [place] [address] Critical Care Cns: Paul Dyer MD Chloride [Moles/Vol] 106 mmol/L Normal 98-110 [facility] Comment on above: Order Comment: FASTI NG:NO FASTING: NO Performed By: #### 1 0231, 809, 6399, 8563, 353, 4420 #### [facility], [address] [place] [address] Critical Care Cns: Paul Dyer MD CO2 [Moles/Vol] 27 mmol/L Normal 20-32 [facility] Comment on above: Order Comment: FASTI NG:NO FASTING: NO Performed By: #### 1 0231, 809, 6399, 8563, 353, 4420 #### [facility], [address] [place] [address] Critical Care Cns: Paul Dyer MD Creatinine [Mass/Vol] 0.61 mg/dL Normal 0.50-0.99 [facility] Comment on above: Order Comment: FASTI NG:NO FASTING: NO Result Comment: For patients >49 years of age, the reference limit for Creatinine is approximately 13% higher for people identified as -Polish. Performed By: #### 1 0231, 809, 6399, 8563, 353, 4420 #### [facility], [address] [place] [address] Critical Care Cns: Paul Dyer MD eGFR NON-AFR. GUINEAN 94 mL/min/1.73m2 Normal > OR = 60 [facility] Comment on above: Order Comment: FASTI NG:NO FASTING: NO Performed By: #### 1 0231, 809, 6399, 8563, 353, 4420 #### [facility]-[address], [address] [place] [address] Critical Care Cns: Paul Dyer MD GFR/1.73 sq M predicted among blacks MDRD (S/P/Bld) [Vol rate/Area] 109 mL/min/{1.73_m2} Normal > OR = 60 [facility] Comment on above: Order Comment: FASTI NG:NO FASTING: NO Performed By: #### 1 0231, 809, 6399, 8563, 353, 4420 #### [facility]-[address], [address] [place] [address] Critical Care Cns: Paul Dyer MD Globulin (S) [Mass/Vol] 2.4 g/dL (calc) Normal 1.9-3.7 [facility] Comment on above: Order Comment: FASTI NG:NO FASTING: NO Performed By: #### 1 0231, 809, 6399, 8563, 353, 4420 #### [facility] [address] [facility], [address] [place] [address] Critical Care Cns: Paul Dyer MD Glucose [Mass/Vol] 78 mg/dL Normal 65-139 [facility] Comment on above: Order Comment: FASTI NG:NO FASTING: NO Result Comment: Non-fasting reference interval Performed By: #### 1 0231, 809, 6399, 8563, 353, 4420 #### [facility] [address], [address] [place] [address] Critical Care Cns: Paul Dyer MD Potassium [Moles/Vol] 4.0 mmol/L Normal 3.5-5.3 [facility] Comment on above: Order Comment: FASTI NG:NO FASTING: NO Performed By: #### 1 0231, 809, 6399, 8563, 353, 4420 #### [facility] [address], [address] [place] [address] Critical Care Cns: Paul Dyer MD Protein [Mass/Vol] 6.3 g/dL Normal 6.1-8.1 [facility] Comment on above: Order Comment: FASTI NG:NO FASTING: NO Performed By: #### 1 0231, 809, 6399, 8563, 353, 4420 #### [facility] [address] , [address] [place] [address] Critical Care Cns: Paul Dyer MD Sodium [Moles/Vol] 142 mmol/L Normal 135-146 [facility] Comment on above: Order Comment: FASTI NG:NO FASTING: NO Performed By: #### 1 0231, 809, 6399, 8563, 353, 4420 #### [facility] [address] , [address] [place] [address] Critical Care Cns: Paul Dyer MD Urea nitrogen [Mass/Vol] 10 mg/dL Normal 7-25 [facility] Comment on above: Order Comment: FASTI NG:NO FASTING: NO Performed By: #### 1 0231, 809, 6399, 8563, 353, 4420 #### [facility] [address] , [address] [place] [address] Critical Care Cns: Paul Dyer MD Urea nitrogen/Creatinine [Mass ratio] NOT APPLICABLE Normal 6-22 [facility] Comment on above: Order Comment: FASTI NG:NO FASTING: NO Performed By: #### 1 0231, 809, 6399, 8563, 353, 4420 #### [facility] [address] , [address] [place], [place] [address] Critical Care Cns: Paul Dyer MD SED RATE BY MODIFIED WESTERG RENon 12-15-2019 SED RATE BY MODIFIED WESTERGREN 6 mm/h Normal < OR = 30 [facility] Comment on above: Performed By: #### 1 0231, 809, 6399, 8563, 353, 4420 #### [facility] [address], [address] [place] [address] Critical Care Cns: Paul Dyer MD URINALYSIS MICROSCOPICon Bacteria LM.HPF (Urine sed) [#/Area] NONE SEEN Normal NONE SEEN [facility] Comment on above: Performed By: #### 1 0231, 809, 6399, 8563, 353, 4420 #### [facility] [address], [address] [place] [address] Critical Care Cns: Paul Dyer MD Epithelial cells.squamous LM.HPF (Urine sed) [#/Area] NONE SEEN Normal < OR = 5 [facility] Comment on above: Performed By: #### 1 0231, 809, 6399, 8563, 353, 4420 #### [facility] [address], [address] [place] [address] Critical Care Cns: Paul Dyer MD HYALINE CAST NONE SEEN Normal NONE SEEN [facility] Comment on above: Performed By: #### 1 0231, 809, 6399, 8563, 353, 4420 #### [facility] [address], [address] [place] [address] Critical Care Cns: Paul Dyer MD RBC (U) [#/Vol] NONE SEEN Normal < OR = 2 [facility] Comment on above: Performed By: #### 1 0231, 809, 6399, 8563, 353, 4420 #### [facility] [address], [address] [place] [address] Critical Care Cns: Paul Dyer MD WBC (Bld) [#/Vol] NONE SEEN Normal < OR = 5 [facility] Comment on above: Performed By: #### 1 0231, 809, 6399, 8563, 353, 4420 #### [facility] [address] [facility], [address] [place] [id number] Critical Care Cns: Paul Dyer MD Vital Signs Date Time Vital Sign Value Performing Clinician Facility 11-11-2024 11:10-0400 Body mass index (BMI) [Ratio] 26.26 kg/m2 Patricio Cifuentes MD Work Phone: [facility] 11-11-2024 11:10-0400 Body weight 69.4 kg Patricio Cifuentes MD Work Phone: [facility] 11-11-2024 11:10-0400 Diastolic blood pressure 70 mm[Hg] Patricio Cifuentes MD Work Phone: [facility] 11-11-2024 11:10-0400 Systolic blood pressure 120 mm[Hg] Patricio Cifuentes MD Work Phone: [facility] 10-18-2024 11:42-0400 Body height 162.6 cm Tyrese Swanson MD Work Phone: [facility] 10-18-2024 11:42-0400 Body mass index (BMI) [Ratio] 27.46 kg/m2 Tyrese Swanson MD Work Phone: [facility] 10-18-2024 11:42-0400 Body weight 72.58 kg Tyrese Swanson MD Work Phone: [facility] 10-18-2024 11:42-0400 Diastolic blood pressure 62 mm[Hg] Tyrese Swanson MD Work Phone: [facility] 10-18-2024 11:42-0400 Heart rate 52 /min Tyrese Swanson MD Work Phone: [facility] 10-18-2024 11:42-0400 Respiratory rate 14 /min Tyrese Swanson MD Work Phone: [facility] 10-18-2024 11:42-0400 SaO2% (BldA) [Mass fraction] 97 % Tyrese Swanson MD Work Phone: [facility] 10-18-2024 11:42-0400 Systolic blood pressure 104 mm[Hg] Tyrese Swanson MD Work Phone: [facility] 10-04-2024 15:11-0500 Blood Pressure Location HELENA MAXWELL [facility] 10-04-2024 15:11-0500 Diastolic blood pressure 59 mm[Hg] HELENA NANCY [facility] 10-04-2024 15:11-0500 Heart rate 50 /min HELENA MAXWELL [facility] 10-04-2024 15:11-0500 Respiratory rate 18 /min HELENA NANCY [facility] 10-04-2024 15:11-0500 Systolic blood pressure 115 mm[Hg] HELENA MAXWELL [facility] 09-30-2024 15:03-0500 Body mass index (BMI) [Ratio] 27.02 kg/m2 Radha Mckeon MD Work Phone: [facility] 09-30-2024 15:03-0500 Body temperature 93.4 [degF] Radha Mckeon MD Work Phone: [facility] 09-30-2024 15:03-0500 Body weight 71.4 kg Radha Mckeon MD Work Phone: [facility] 09-30-2024 15:03-0500 Diastolic blood pressure 78 mm[Hg] Radha Mckeon MD Work Phone: [facility] 09-30-2024 15:03-0500 Heart rate 54 /min Radha Mckeon MD Work Phone: [facility] 09-30-2024 15:03-0500 SaO2% (BldA) [Mass fraction] 96 % Radha Mckeon MD Work Phone: [facility] 09-30-2024 15:03-0500 Systolic blood pressure 128 mm[Hg] Radha Mckeon MD Work Phone: [facility] 09-27-2024 11:45-0500 Body height 162.6 cm Tyrese Swanson MD Work Phone: [facility] 09-27-2024 11:45-0500 Body mass index (BMI) [Ratio] 27.29 kg/m2 Tyrese Swanson MD Work Phone: [facility] 09-27-2024 11:45-0500 Body weight 72.12 kg Tyrese Swanson MD Work Phone: [facility] 09-27-2024 11:45-0500 Diastolic blood pressure 64 mm[Hg] Tyrese Swanson MD Work Phone: [facility] 09-27-2024 11:45-0500 Heart rate 49 /min Tyrese Swanson MD Work Phone: [facility] 09-27-2024 11:45-0500 Respiratory rate 16 /min Tyrese Swanson MD Work Phone: [facility] 09-27-2024 11:45-0500 SaO2% (BldA) [Mass fraction] 97 % Tyrese Swanson MD Work Phone: [facility] 09-27-2024 11:45-0500 Systolic blood pressure 110 mm[Hg] Tyrese Swanson MD Work Phone: [facility] 09-14-2024 13:36-0500 Body height 162.6 cm Gely Snow MD Work Phone: [facility] 09-14-2024 13:36-0500 Body mass index (BMI) [Ratio] 26.78 kg/m2 Gely Snow MD Work Phone: [facility] 09-14-2024 13:36-0500 Body weight 70.76 kg Gely Snow MD Work Phone: [facility] 09-14-2024 13:36-0500 Diastolic blood pressure 72 mm[Hg] Gely Snow MD Work Phone: [facility] 09-14-2024 13:36-0500 Heart rate 56 /min Gely Snow MD Work Phone: [facility] 09-14-2024 13:36-0500 Systolic blood pressure 130 mm[Hg] Gely Snow MD Work Phone: [facility] 08-03-2024 12:02-0500 Body height 162.56 cm [facility] 08-03-2024 12:02-0500 Body mass index (BMI) [Ratio] 26.4 kg/m2 [facility] 08-03-2024 12:02-0500 Body temperature 98.7 [degF] [facility] 08-03-2024 12:02-0500 Body weight 69.85 kg [facility] 08-03-2024 12:02-0500 Diastolic blood pressure 73 mm[Hg] [facility] 08-03-2024 12:02-0500 Heart rate 68 /min [facility] 08-03-2024 12:02-0500 Respiratory rate 16 /min [facility] 08-03-2024 12:02-0500 SaO2% (BldA) [Mass fraction] 95 % [facility] 08-03-2024 12:02-0500 Systolic blood pressure 133 mm[Hg] [facility] 05-10-2024 14:23-0400 Body mass index (BMI) [Ratio] 26.29 kg/m2 Radha Mckeon MD Work Phone: [facility] 05-10-2024 14:23-0400 Body temperature 97.39 [degF] Radha Mckeon MD Work Phone: [facility] 05-10-2024 14:23-0400 Body weight 71.67 kg Radha Mckeon MD Work Phone: [facility] 05-10-2024 14:23-0400 Diastolic blood pressure 70 mm[Hg] Radha Mckeon MD Work Phone: [facility] 05-10-2024 14:23-0400 Systolic blood pressure 120 mm[Hg] Radha Mckeon MD Work Phone: [facility] 04-23-2024 09:50-0400 Body height 162.56 cm MD Radha Mckeon Work Phone: [facility] 04-23-2024 09:50-0400 Body mass index (BMI) [Ratio] 27.3 kg/m2 MD Radha Mckeon Work Phone: [facility] 04-23-2024 09:50-0400 Body temperature 97.9 [degF] MD Radha Mckeon Work Phone: [facility] 04-23-2024 09:50-0400 Body weight 72.12 kg MD Radha Mckeon Work Phone: [facility] 04-23-2024 09:50-0400 Diastolic blood pressure 69 mm[Hg] MD Radha Mckeon Work Phone: [facility] 04-23-2024 09:50-0400 Heart rate 51 /min MD Radha Mckeon Work Phone: [facility] 04-23-2024 09:50-0400 Respiratory rate 16 /min MD Rdaha Mckeon Work Phone: [facility] 04-23-2024 09:50-0400 SaO2% (BldA) [Mass fraction] 100 % MD Radha Mckeon Work Phone: [facility] 04-23-2024 09:50-0400 Systolic blood pressure 136 mm[Hg] MD Radha Mckeon Work Phone: [facility] 02-27-2024 09:16-0400 Body height 162.56 cm MD Radha Mckeon Work Phone: [facility] 02-27-2024 09:16-0400 Body mass index (BMI) [Ratio] 27.4 kg/m2 MD Radha Mckeon Work Phone: [facility] 02-27-2024 09:16-0400 Body weight 72.57 kg MD Radha Mckeon Work Phone: [facility] 02-12-2024 14:27-0400 Diastolic blood pressure 62 mm[Hg] Gely Snow MD Work Phone: [facility] 02-12-2024 14:27-0400 Systolic blood pressure 112 mm[Hg] Gely Snow MD Work Phone: [facility] 02-12-2024 14:26-0400 Body height 162.6 cm Gely Snow MD Work Phone: [facility] 02-12-2024 14:26-0400 Body mass index (BMI) [Ratio] 27.46 kg/m2 Gely Snow MD Work Phone: [facility] 02-12-2024 14:26-0400 Body weight 72.58 kg Gely Snow MD Work Phone: [facility] 02-12-2024 14:26-0400 Heart rate 55 /min Gely Snow MD Work Phone: [facility] 12-10-2023 14:06-0400 Blood Pressure Location Jasper ALMONTE [facility] 12-10-2023 14:06-0400 Body temperature 97.88 [degF] Jasper ALMONTE [facility] 12-10-2023 14:06-0400 Diastolic blood pressure 68 mm[Hg] Jasper ALMONTE [facility] 12-10-2023 14:06-0400 Heart rate 59 /min Jasper ALMONTE [facility] 12-10-2023 14:06-0400 Respiratory rate 16 /min Jasper ALMONTE [facility] 12-10-2023 14:06-0400 Systolic blood pressure 132 mm[Hg] Jasper ALMONTE [facility] 12-02-2023 01:10-0400 Diastolic blood pressure 60 mm[Hg] MD Radha Mckeon Work Phone: [facility] 12-02-2023 01:10-0400 Heart rate 50 /min MD Radha Mckeon Work Phone: [facility] 12-02-2023 01:10-0400 Respiratory rate 16 /min MD Radha Mckeon Work Phone: [facility] 12-02-2023 01:10-0400 SaO2% (BldA) [Mass fraction] 98 % MD Radha Mckeon Work Phone: [facility] 12-02-2023 01:10-0400 Systolic blood pressure 129 mm[Hg] MD Radha Mckeon Work Phone: [facility] 12-01-2023 20:08-0400 Body height 162.56 cm MD Radha Mckeon Work Phone: [facility] 12-01-2023 20:08-0400 Body temperature 97.8 [degF] MD Radha Mckeon Work Phone: [facility] 12-01-2023 20:08-0400 Body weight 77 kg MD Radha Mckeon Work Phone: [facility] 11-29-2023 01:55-0400 Diastolic blood pressure 66 mm[Hg] MD Radha Mckeon Work Phone: [facility] 11-29-2023 01:55-0400 Heart rate 51 /min MD Radha Mckeon Work Phone: [facility] 11-29-2023 01:55-0400 Respiratory rate 18 /min MD Radha Mckeon Work Phone: [facility] 11-29-2023 01:55-0400 SaO2% (BldA) [Mass fraction] 97 % MD Radha Mckeon Work Phone: [facility] 11-29-2023 01:55-0400 Systolic blood pressure 145 mm[Hg] MD Radha Mckeon Work Phone: [facility] 11-28-2023 23:27-0400 Body height 162.56 cm MD Radha Mckeon Work Phone: [facility] 11-28-2023 23:27-0400 Body temperature 98.8 [degF] MD Radha Mckeon Work Phone: [facility] 11-28-2023 23:27-0400 Body weight 77.11 kg MD Radha Mckeon Work Phone: [facility] 10-24-2023 14:14-0400 Body temperature 98.3 [degF] MD Radha Mckeon Work Phone: [facility] 10-24-2023 14:14-0400 Body weight 77.01 kg MD Radha Mckeon Work Phone: [facility] 10-24-2023 14:14-0400 Diastolic blood pressure 71 mm[Hg] MD Radha Mckeon Work Phone: [facility] 10-24-2023 14:14-0400 Heart rate 88 /min MD Radha Mckeon Work Phone: [facility] 10-24-2023 14:14-0400 Respiratory rate 18 /min MD Radha Mckeon Work Phone: [facility] 10-24-2023 14:14-0400 SaO2% (BldA) [Mass fraction] 98 % MD Radha Mckeon Work Phone: [facility] 10-24-2023 14:14-0400 Systolic blood pressure 116 mm[Hg] MD Radha Mckeon Work Phone: [facility] 09-29-2023 16:00-0500 Diastolic blood pressure 81 mm[Hg] MD Radha Mckeon Work Phone: [facility] 09-29-2023 16:00-0500 Heart rate 56 /min MD Radha Mckeon Work Phone: [facility] 09-29-2023 16:00-0500 Respiratory rate 16 /min MD Radha Mckeon Work Phone: [facility] 09-29-2023 16:00-0500 SaO2% (BldA) [Mass fraction] 96 % MD Radha Mckeon Work Phone: [facility] 09-29-2023 16:00-0500 Systolic blood pressure 120 mm[Hg] MD Radha Mckeon Work Phone: [facility] 09-29-2023 15:05-0500 Body temperature 98 [degF] MD Radha Mckeon Work Phone: [facility] 09-29-2023 14:40-0500 Inhaled oxygen flow rate 8 L/min MD Radha Mckeon Work Phone: [facility] 09-29-2023 13:13-0500 Body mass index (BMI) [Ratio] 29.1 kg/m2 MD Radah Mckeon Work Phone: [facility] 09-29-2023 12:47-0500 Body height 162.56 cm MD Radha Mckeon Work Phone: [facility] 09-29-2023 12:47-0500 Body weight 77 kg MD Radha Mckeon Work Phone: [facility] 09-09-2023 13:55-0500 Body height 162.6 cm Radha Mckeon MD Work Phone: [facility] 09-09-2023 13:55-0500 Body mass index (BMI) [Ratio] 29.18 kg/m2 Radha Mckeon MD Work Phone: [facility] 09-09-2023 13:55-0500 Body weight 77.11 kg Radha Mckeon MD Work Phone: [facility] 09-09-2023 13:55-0500 Diastolic blood pressure 64 mm[Hg] Radha Mckeon MD Work Phone: [facility] 09-09-2023 13:55-0500 Heart rate 52 /min Radha Mckeon MD Work Phone: [facility] 09-09-2023 13:55-0500 Respiratory rate 16 /min Radha Mckeon MD Work Phone: [facility] 09-09-2023 13:55-0500 Systolic blood pressure 130 mm[Hg] Radha Mckeon MD Work Phone: [facility] 06-10-2023 12:30-0500 Diastolic blood pressure 69 mm[Hg] MD Radha Mckeon Work Phone: [facility] 06-10-2023 12:30-0500 Heart rate 46 /min MD Radha Mckeon Work Phone: [facility] 06-10-2023 12:30-0500 Respiratory rate 18 /min MD Radha Mckeon Work Phone: [facility] 06-10-2023 12:30-0500 SaO2% (BldA) [Mass fraction] 98 % MD Radha Mckeon Work Phone: [facility] 06-10-2023 12:30-0500 Systolic blood pressure 127 mm[Hg] MD Radha Mckeon Work Phone: [facility] 06-10-2023 10:27-0500 Body height 162.56 cm MD Radha Mckeon Work Phone: [facility] 06-10-2023 10:27-0500 Body temperature 98.1 [degF] MD Radha Mckeon Work Phone: [facility] 06-10-2023 10:27-0500 Body weight 75.29 kg MD Radha Mckeon Work Phone: [facility] 05-12-2023 11:22-0400 Body temperature 98.1 [degF] MD Radha Mckeon Work Phone: [facility] 05-12-2023 11:22-0400 Diastolic blood pressure 59 mm[Hg] MD Radha Mckeon Work Phone: [facility] 05-12-2023 11:22-0400 Heart rate 48 /min MD Radha Mckeon Work Phone: [facility] 05-12-2023 11:22-0400 Respiratory rate 16 /min MD Radha Mckeon Work Phone: [facility] 05-12-2023 11:22-0400 SaO2% (BldA) [Mass fraction] 98 % MD Radha Mckeon Work Phone: [facility] 05-12-2023 11:22-0400 Systolic blood pressure 115 mm[Hg] MD Radha Mckeon Work Phone: [facility] 04-22-2023 08:55-0400 Body temperature 97.5 [degF] MD Radha Mckeon Work Phone: [facility] 04-22-2023 08:55-0400 Body weight 77.15 kg MD Radha Mckeon Work Phone: [facility] 04-22-2023 08:55-0400 Diastolic blood pressure 67 mm[Hg] MD Radha Mckeon Work Phone: [facility] 04-22-2023 08:55-0400 Heart rate 47 /min MD Radha Mckeon Work Phone: [facility] 04-22-2023 08:55-0400 Respiratory rate 20 /min MD Radha Mckeon Work Phone: [facility] 04-22-2023 08:55-0400 SaO2% (BldA) [Mass fraction] 99 % MD Radha Mckeon Work Phone: [facility] 04-22-2023 08:55-0400 Systolic blood pressure 129 mm[Hg] MD Radha Mckeon Work Phone: [facility] 04-25-2022 12:57-0400 Body temperature 98 [degF] MD Radha Mckeon Work Phone: [facility] 04-25-2022 12:57-0400 Body weight 75.84 kg MD Radha Mckeon Work Phone: [facility] 04-25-2022 12:57-0400 Diastolic blood pressure 70 mm[Hg] MD Radha Mckeon Work Phone: [facility] 04-25-2022 12:57-0400 Heart rate 50 /min MD Radha Mckeon Work Phone: [facility] 04-25-2022 12:57-0400 Respiratory rate 20 /min MD Radha Mckeon Work Phone: [facility] 04-25-2022 12:57-0400 SaO2% (BldA) [Mass fraction] 99 % MD Radha Mckeon Work Phone: [facility] 04-25-2022 12:57-0400 Systolic blood pressure 123 mm[Hg] MD Radha Mckeon Work Phone: [facility] 10-22-2021 11:00-0400 Body height 162.56 cm Venkat Miller Other [employer] Other 10-22-2021 11:00-0400 Body mass index (BMI) [Ratio] 28.32 kg/m2 Venkat Miller Other [employer] Other 10-22-2021 11:00-0400 Body weight 74.84 kg Venkat Miller Other [employer] Other 10-05-2021 18:50-0500 Body height 162.56 cm Dipti Garvin Other [employer] Other 10-05-2021 18:50-0500 Body mass index (BMI) [Ratio] 28.66 kg/m2 Dipti Garvin Other [employer] Other 10-05-2021 18:50-0500 Body temperature 96.9 [degF] Dipti Garvin Other [employer] Other 10-05-2021 18:50-0500 Body weight 75.75 kg Dipti Garvin Other [employer] Other 10-05-2021 18:50-0500 Diastolic blood pressure 76 mm[Hg] Dipti Garvin Other [employer] Other 10-05-2021 18:50-0500 Respiratory rate 18 /min Dipti Garvin Other [employer] Other 10-05-2021 18:50-0500 SaO2% (BldA) [Mass fraction] 99 % Dipti Garvin Other [employer] Other 10-05-2021 18:50-0500 Systolic blood pressure 142 mm[Hg] Dipti Garvin Other [employer] Other 06-17-2021 12:10-0500 Body height 162.56 cm Chiquita Zabrina Other [employer] Other 06-17-2021 12:10-0500 Body mass index (BMI) [Ratio] 29.11 kg/m2 Chiquita Zabrina Other [employer] Other 06-17-2021 12:10-0500 Body temperature 96.6 [degF] Chiquita Zabrina Other [employer] Other 06-17-2021 12:10-0500 Body weight 76.93 kg Chiquita Zabrina Other [employer] Other 06-17-2021 12:10-0500 Diastolic blood pressure 56 mm[Hg] Chiquita Gerber Other [employer] Other 06-17-2021 12:10-0500 Respiratory rate 18 /min Chiquita Gerber Other [employer] Other 06-17-2021 12:10-0500 SaO2% (BldA) [Mass fraction] 97 % Chiquita Gerber Other [employer] Other 06-17-2021 12:10-0500 Systolic blood pressure 128 mm[Hg] Chiquita Gerber Other [employer] Other 04-25-2020 09:11-0400 Body height 162.56 cm MD Radha Mckeon Work Phone: [facility] Encounters Encounter Date Encounter Type Care Provider Facility Start: 02-10-2025 End: 02-10-2025 Clinisync Result Encounter Generic External Data Provider [facility] External Department Unsolicited Start: 02-10-2025 End: 02-10-2025 Clinisync Result Encounter Generic External Data Provider [facility] External Department Unsolicited Start: 01-03-2025 End: 01-03-2025 ambulatory Radha Mckeon MD Work Phone: [facility] Work Phone: Start: 01-03-2025 End: 01-03-2025 Patient encounter procedure Radha Mckeon MD Work Phone: [facility] Work Phone: Start: 2024 End: 2024 Telephone encounter Tyrese Swanson MD Work Phone: [facility] Comment on above: Med Refill Start: 12-10-2024 End: 12-10-2024 Patient encounter procedure Radha Mckeon MD Work Phone: [facility] Work Phone: Start: 12-10-2024 End: 12-10-2024 ambulatory Radha Mckeon MD Work Phone: [facility] Work Phone: Start: 12-03-2024 End: 12-03-2024 Orders Only Patricio Cifuentes MD Work Phone: [facility] Comment on above: Acute vulvitis (Prim celestino Dx) Start: 12-02-2024 End: 12-07-2024 Telephone encounter Patricio Cifuentes MD Work Phone: [facility] Start: 11-22-2024 End: 11-22-2024 Bamboo flowsheet Sadaf S [place] 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 Work Phone: [facility] Start: 11-22-2024 End: 11-22-2024 Bamboo flowsheet Sadaf S Lj 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 Work Phone: [facility] Start: 11-22-2024 End: 11-22-2024 Patient encounter procedure [facility] Fm Nurse [facility] Comment on above: terminal carman (current) use of anticoagulants Start: 11-22-2024 End: 11-22-2024 ambulatory SADAF LJ Not Available Start: 11-22-2024 End: 11-22-2024 ambulatory SADAF S LJ Not Available Start: 11-11-2024 End: 11-11-2024 Office outpatient visit 10 minutes Patricio Cifuentes MD Work Phone: [facility] Comment on above: Encounter for gyneco logical examination without abnormal finding (Primary Dx); Encounter for screening mammogram for malignant neoplasm of breast; Osteoporosis, post-menopausal (CMS/HCC); Encounter for screening for cervical cancer; Alopecia Start: 11-11-2024 End: 11-11-2024 Patient encounter status Patricio Cifuentes MD Work Phone: [facility] Work Phone: Start: 11-11-2024 End: 11-11-2024 ambulatory PATRICIO CIFUENTES Not Available Start: 10-26-2024 End: 10-26-2024 ambulatory RADHA MCKEON Not Available Start: 10-25-2024 End: 10-25-2024 Telephone encounter Miriam Conrad [facility] Start: 10-18-2024 End: 10-18-2024 Bamboo flowsheet Tyrese Swanson MD Work Phone: [facility] Start: 10-18-2024 End: 10-18-2024 Bamboo flowsheet Tyrese Swanson MD Work Phone: [facility] Start: 10-18-2024 End: 10-18-2024 Office outpatient visit 25 minutes Tyrese Swanson MD Work Phone: [facility] END[facility] Comment on above: 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CMS/HCC) (Primary Dx); H/O gastric bypass; Kidney stone; Age-related osteoporosis without current pathological fracture (CMS/HCC) Start: 10-18-2024 End: 10-18-2024 ambulatory TYRESE SWANSON Not Available Start: 10-11-2024 End: 10-11-2024 Patient encounter procedure Radha Mckeon MD Work Phone: [facility] [place] Work Phone: Start: 10-11-2024 End: 10-11-2024 ambulatory Radha Mckeon MD Work Phone: [facility] Work Phone: Start: 10-04-2024 End: 10-04-2024 ambulatory RICKI-Adeola MAXWELL Facility:[facility] Start: 10-04-2024 End: 10-04-2024 Patient encounter procedure HELENA MAXWELL [facility] Start: 10-02-2024 End: 10-02-2024 Clinisync Result Encounter Generic External Data Provider [facility] External Department Unsolicited Start: 10-02-2024 End: 10-02-2024 Clinisync Result Encounter Generic External Data Provider [facility] External Department Unsolicited Start: 09-30-2024 End: 09-30-2024 Patient encounter procedure Radha Mckeon MD Work Phone: [facility] Comment on above: Routine general medi deepali examination at a health care facility (Primary Dx); shelter (current) use of anticoagulants; Adrenal insufficiency (CMS/HCC); Age-related osteoporosis without current pathological fracture (CMS/HCC); Autoimmune disease (CMS/HCC); Factor 5 Leiden mutation, heterozygous (CMS/HCC); Major depressive disorder, single episode, moderate (HCC) (CMS/HCC); Mild persistent asthma without complication (CMS/HCC); Obstructive sleep apnea syndrome; PMR (polymyalgia rheumatica) (CMS/HCC); Postoperative malabsorption (CMS/HCC); Secondary hyperparathyroidism (CMS/HCC); Ascending aortic aneurysm, unspecified whether ruptured (CMS/HCC); Moderate episode of recurrent major depressive disorder (CMS/HCC); History of deep venous thrombosis (DVT) of distal vein of right lower extremity; Mediastinal lymphadenopathy; Primary osteoarthritis of both knees; Postmenopausal; Aortic root dilatation (CMS/HCC); Osteoporosis, unspecified osteoporosis type, unspecified pathological fracture presence (CMS/HCC); Nonrheumatic aortic valve stenosis Start: 09-30-2024 End: 09-30-2024 Patient encounter status Radha Mckeon MD Work Phone: [facility] Work Phone: Start: 09-30-2024 End: 09-30-2024 ambulatory RADHA MCKEON Not Available Start: 09-30-2024 End: 09-30-2024 Bamboo flowsheet Radha Mckeon MD Work Phone: [facility] Start: 09-30-2024 End: 09-30-2024 Bamboo flowsheet Radha Mckeon MD Work Phone: [facility] Start: 09-27-2024 End: 09-27-2024 Bamboo flowsheet Tyrese Swanson MD Work Phone: [facility] ENDOCR[facility]OLOG[facility] Start: 09-27-2024 End: 09-27-2024 Bamboo flowsshona Swanson MD Work Phone: [facility] Start: 09-27-2024 End: 09-27-2024 Patient encounter procedure Radha Mckeon MD Work Phone: [facility] [address] Work Phone: Start: 09-27-2024 End: 09-27-2024 ambulatory Radha Mckeon MD Work Phone: [facility] Work Phone: Start: 09-27-2024 End: 09-27-2024 Office outpatient visit 40 minutes Tyrese Swanson MD Work Phone: [facility] END[facility] Comment on above: 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CMS/HCC) (Primary Dx); Kidney stone; H/O gastric bypass; Age-related osteoporosis without current pathological fracture (CMS/HCC) Start: 09-27-2024 End: 09-27-2024 ambulatory TYRESE SWANSON Not Available Start: 09-14-2024 End: 09-14-2024 Office outpatient visit 25 minutes Gely Snow MD Work Phone: [facility] Comment on above: Dilated aortic root (CMS-HCC) (Primary Dx); Nonrheumatic aortic valve stenosis; History of DVT of lower extremity; Factor V Leiden (Multi); Anticoagulated; BMI 27.0-27.9,adult Start: 09-14-2024 End: 09-14-2024 ambulatory [facility] Start: 09-06-2024 End: 09-06-2024 Bamboo flowsheet Sadaf Calhoun 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 Work Phone: [facility] Start: 09-06-2024 End: 09-06-2024 Bamboo flowsheet Sadaf S Lj 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 Work Phone: [facility] Start: 09-06-2024 End: 09-06-2024 Telephone encounter Miriam Villa MA [facility] Comment on above: shelter (current) use of anticoagulants (Primary Dx) Start: 09-06-2024 End: 09-06-2024 ambulatory SADAF LJ Not Available Start: 09-06-2024 End: 09-06-2024 ambulatory SADAF S LJ Not Available Start: 08-30-2024 End: 08-30-2024 ambulatory [facility] Work Phone: Start: 08-30-2024 End: 08-30-2024 Patient encounter procedure [facility] Work Phone: Start: 08-10-2024 End: 08-10-2024 ambulatory SADAF LJ Not Available Start: 08-06-2024 End: 08-06-2024 [facility] Start: 08-06-2024 End: 08-06-2024 ambulatory [facility] Start: 08-03-2024 End: 08-03-2024 [facility] Work Phone: Start: 06-28-2024 End: 06-28-2024 Bamboo flowsheet Sadaf S [place] 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 Work Phone: [facility] Start: 06-28-2024 End: 06-28-2024 Bamboo flowsheet Sadfa S [place] 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 Work Phone: [facility] Start: 06-28-2024 End: 06-28-2024 ambulatory SADAF S LJ Not Available Start: 06-26-2024 End: 06-26-2024 Akbar Mckeon MD Work Phone: [facility] Comment on above: Factor 5 Leiden muta tion, heterozygous (CMS/HCC) Start: 06-18-2024 End: 06-18-2024 ambulatory SADAF LJ Not Available Start: 05-31-2024 End: 05-31-2024 ambulatory EVANGELINA Borjas [facility] Start: 05-17-2024 End: 05-17-2024 ambulatory MD Radha Mckeon Work Phone: [facility] Work Phone: Start: 05-17-2024 End: 05-17-2024 Patient encounter procedure MD Radha Mckeon Work Phone: [facility] Work Phone: Start: 05-11-2024 End: 05-11-2024 Patient encounter procedure MD Radha Mckeon Work Phone: [facility] [address] Work Phone: Start: 05-11-2024 End: 05-11-2024 ambulatory MD Radha Mckeon Work Phone: [facility] Work Phone: Start: 05-10-2024 End: 05-10-2024 Office outpatient visit 25 minutes Radha Mckeon MD Work Phone: [facility] Comment on above: Need for vaccination (Primary Dx); terminal carman (current) use of anticoagulants; Acute pain of [...] encounter procedure MD Radha Mckeon Work Phone: [facility] [place] Work Phone: Start: 04-26-2024 End: 04-26-2024 ambulatory MD Radha Mckeon Work Phone: [facility] Work Phone: Start: 04-23-2024 End: 04-23-2024 ambulatory MD Radha Mckeon Work Phone: [facility] Work Phone: Start: 04-23-2024 End: 04-23-2024 Patient encounter procedure MD Radha Mckeon Work Phone: [facility] Work Phone: Start: 04-19-2024 End: 04-19-2024 External Result Encounter Robert Ledezma DO Work Phone: [facility] External Department Unsolicited Start: 04-19-2024 End: 04-19-2024 External Result Encounter Robert Ledezma DO Work Phone: [facility] External Department Unsolicited Start: 04-19-2024 Registered Recurring MD Radha roberto Work Phone: [facility] Work Phone: Start: 04-08-2024 End: 04-08-2024 Bamboo flowsheet Sadaf S Lj 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 Work Phone: [facility] Start: 04-08-2024 End: 04-08-2024 Bamboo flowsheet Sadaf S Lj 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 Work Phone: [facility] Start: 04-08-2024 End: 04-08-2024 ambulatory SADAF LJ Not Available Start: 04-08-2024 End: 04-08-2024 ambulatory SADAF S LJ Not Available Start: 03-24-2024 End: 03-24-2024 ambulatory MD Radha Mckeon Work Phone: [facility] Work Phone: Start: 03-24-2024 End: 03-24-2024 Patient encounter procedure MD Radha Mckeon Work Phone: [facility] Work Phone: Start: 03-22-2024 End: 03-22-2024 ambulatory SADAF CALHOUN Not Available Start: 02-27-2024 End: 02-27-2024 ambulatory MD Radha Mckeon Work Phone: [facility] Work Phone: Start: 02-27-2024 End: 02-27-2024 Patient encounter procedure MD Radha Mckeon Work Phone: [facility] Work Phone: Start: 02-27-2024 End: 02-27-2024 Patient encounter procedure MD Radha Mckeon Work Phone: [facility] Start: 02-27-2024 End: 02-27-2024 ambulatory Radha Mckeon Facility:[facility] Start: 02-12-2024 End: 02-12-2024 Office outpatient new 45 minutes Gely Snow MD Work Phone: [facility] Comment on above: Nonrheumatic aortic valve stenosis (Primary Dx); Dilated aortic root (CMS-HCC); History of DVT of lower extremity; BMI 27.0-27.9,adult; Anticoagulated Start: 02-12-2024 End: 02-12-2024 ambulatory [facility] Start: 01-19-2024 End: 01-19-2024 ambulatory SADAF CALHOUN Not Available Start: 01-15-2024 End: 01-15-2024 ambulatory RADHA MCKEON Not Available Start: 12-18-2023 ambulatory Jasper Muñoz ty:[id number] Start: 12-15-2023 End: 12-15-2023 ambulatory RADHA MCKEON Not Available Start: 12-10-2023 End: 12-10-2023 ambulatory Jasper ALMONTE Facility:[facility] Start: 12-10-2023 End: 12-10-2023 Patient encounter procedure Jasper ALMONTE [facility] Start: 12-08-2023 End: 12-08-2023 ambulatory MD Radha Mckeon Work Phone: [facility] Work Phone: Start: 12-08-2023 End: 12-08-2023 Patient encounter procedure MD Radha Mckeon Work Phone: [facility] [place] Work Phone: Start: 12-05-2023 ambulatory Jasper ALMONTE Facility :[facility] Start: 12-01-2023 End: 12-02-2023 Emergency department patient visit MD Radha Mckeon Work Phone: [facility] Work Phone: Start: 12-01-2023 End: 12-01-2023 ambulatory SADAF CALHOUN Not Available Start: 11-28-2023 End: 11-29-2023 Emergency department patient visit MD Radha Mckeon Work Phone: [facility] Work Phone: Start: 10-24-2023 Registered Recurring MD Radha roberto Work Phone: [facility] Work Phone: Start: 09-29-2023 End: 09-29-2023 Admission to same day surgery center MD Radha Mckeon Work Phone: [facility] [place] Start: 09-23-2023 End: 09-23-2023 ambulatory MD Radha Mckeon Work Phone: [facility] Work Phone: Start: 09-23-2023 End: 09-23-2023 Patient encounter procedure MD Radha Mckeon Work Phone: [facility]-Electrodiagnostics Work Phone: Start: 09-16-2023 External Result Encounter Neto Burton DO Work Phone: [facility] External Department Unsolicited Start: 09-16-2023 External Result Encounter Neto Burton DO Work Phone: [facility] External Department Unsolicited Start: 09-16-2023 Telephone encounter Radha meza MD Work Phone: [facility] Start: 09-16-2023 End: 09-16-2023 ambulatory MD Radha Mckeon Work Phone: [facility] Work Phone: Start: 09-16-2023 End: 09-16-2023 Patient encounter procedure MD Radha Mckeon Work Phone: [facility] Work Phone: Start: 09-15-2023 Chart abstracting Sadaf S Augusta hlin 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 Work Phone: [facility] Start: 09-15-2023 Refill Radha Gar Work Phone: [facility] Comment on above: Gastro-esophageal re flux disease without esophagitis Start: 09-09-2023 End: 09-09-2023 Assay of hemosiderin, quant Radha Mckeon MD Work Phone: [facility] Start: 09-09-2023 End: 09-09-2023 Patient encounter procedure Radha Mckeon MD Work Phone: [facility] Comment on above: Routine general medi deepali examination at a health care facility (Primary Dx); shelter (current) use of anticoagulants; PMR (polymyalgia rheumatica) [...] encounter status Radha Mckeon MD Work Phone: [facility] Work Phone: Start: 06-13-2023 End: 06-13-2023 ambulatory Imad Asaad Other [employer] Other Start: 06-13-2023 Telephone encounter Imad Asaad [facility] Start: 06-10-2023 End: 06-10-2023 Admission to same day surgery center MD Radha Mckeon Work Phone: [facility]Dig[facility] Work Phone: Start: 06-10-2023 End: 06-10-2023 ambulatory MD Radha Mckeon Work Phone: [facility] Work Phone: Start: 05-19-2023 End: 05-19-2023 ambulatory Imad Asaad Other [employer] Other Start: 05-19-2023 Telephone encounter Imad Asaad [facility] Start: 05-12-2023 Registered Recurring MD Radha roberto Work Phone: [facility] Work Phone: Start: 04-22-2023 End: 04-22-2023 ambulatory MD Radha Mckeon Work Phone: [facility] Work Phone: Start: 04-22-2023 End: 04-22-2023 Registered Recurring MD Radha Mckeon Work Phone: [facility] Work Phone: Start: 04-10-2023 End: 04-10-2023 ambulatory MD Radha Mckeon Work Phone: [facility] Work Phone: Start: 04-10-2023 End: 04-10-2023 Patient encounter procedure MD Radha Mckeon Work Phone: [facility] [place] Work Phone: Start: 04-03-2023 End: 04-03-2023 ambulatory MD Radha Mckeon Work Phone: [facility] Work Phone: Start: 04-03-2023 End: 04-03-2023 Patient encounter procedure MD Radha Mckeon Work Phone: [facility] Start: 04-02-2023 End: 04-02-2023 ambulatory Venkat Miller Other [employer] Other Start: 04-02-2023 Telephone encounter Venkat Miller [facility] Start: 11-28-2022 End: 11-28-2022 ambulatory Venkat Miller Other [employer] Other Start: 11-28-2022 Office outpatient vi sit 15 minutes Venkat Angela [facility] [place] Start: 10-31-2022 End: 10-31-2022 ambulatory Venkat Miller Other [employer] Other Start: 10-31-2022 Office outpatient vi sit 15 minutes Venkat Felter [facility] [place] Start: 10-24-2022 End: 10-24-2022 ambulatory MD Radha Mckeon Work Phone: [facility] Work Phone: Start: 10-24-2022 End: 10-24-2022 Patient encounter procedure MD Radha Mckeon Work Phone: [facility] Work Phone: Start: 06-29-2022 End: 06-29-2022 ambulatory MD Radha Mckeon Work Phone: [facility] Work Phone: Start: 06-29-2022 End: 06-29-2022 Patient encounter procedure MD Radha Mckeon Work Phone: [facility] [place] Start: 04-25-2022 Registered Recurring MD Radha roberto Work Phone: [facility] Start: 11-19-2021 End: 11-19-2021 ambulatory Venkat Santiagoer Other [employer] Other Start: 11-19-2021 Office outpatient vi sit 15 minutes Venkat Felter [facility] [place] Start: 10-22-2021 End: 10-22-2021 ambulatory Venkat Miller Other [employer] Other Start: 10-22-2021 Office outpatient ne w 45 minutes Venkat Felter [facility] [place] Start: 10-06-2021 End: 10-06-2021 ambulatory Dipti Garvin Other [employer] Other Start: 10-06-2021 Telephone encounter Dipti Garvin [facility] Start: 10-05-2021 End: 10-05-2021 ambulatory Dipti Garvin Other [employer] Other Start: 10-05-2021 Office outpatient vi sit 15 minutes Dipti Garvin [facility] Start: 06-17-2021 End: 06-17-2021 ambulatory Chiquita Vegamond Other [employer] Other Start: 06-17-2021 Office outpatient vi sit 15 minutes Chiquita Zabrina [facility] Start: 01-11-2019 End: 02-09-2019 Patient encounter procedure JOSEPH ARCHER Facility: Start: 01-04-2019 End: 02-18-2019 Patient encounter procedure [facility] Facility:[id number] Start: 07-01-2018 Patient encounter procedure Riddhi Morales Facility:[id number] Start: 12-23-2017 Patient encounter procedure Claudio Alonso Facility:[id number] Procedures Date Procedure Procedure Detail Performing Clinician Start: 02-10-2025 ALL MAGNESIUM Generic External Data Provider Start: 02-10-2025 ALL RENAL FUNCTION PANEL Generic Externa l Data Provider Start: 12-10-2024 End: 12-10-2024 Mammography Radha Mckeon MD Work Phone: Start: 11-22-2024 Prothrombin time Radha Mckeon MD Work Phone: Start: 11-22-2024 End: 11-22-2024 Psychotherapy w/patient 60 minutes Panic disorder (CMS/HCC) Sadaf S Lj 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 Work Phone: Comment on above: Panic disorder (CMS/HCC); Moderate episode of recurrent major depressive disorder (CMS/HCC) Start: 10-11-2024 Supine abdominal X-ray Radha Mckeon MD Work Phone: Start: 10-11-2024 Ultrasonography of bilateral kidneys Radha Mckeon MD Work Phone: Start: 10-02-2024 CREATININE 24 HOUR URINE Generic Externa l Data Provider Start: 09-30-2024 Prothrombin time Radha Mckeon MD Work Phone: Start: 09-06-2024 Prothrombin time Danielle Acosta NP Work Phone: Start: 09-06-2024 End: 09-06-2024 Psychotherapy w/patient 60 minutes Panic disorder (CMS/HCC) Sadaf S [place] 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 Work Phone: Comment on above: Panic disorder (CMS/HCC); Moderate episode of recurrent major depressive disorder (CMS/HCC) Start: 06-28-2024 End: 06-28-2024 Psychotherapy w/patient 60 minutes Panic disorder (CMS/HCC) Sadaf S Lj 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 Work Phone: Comment on above: Panic disorder (CMS/HCC); Moderate episode of recurrent major depressive disorder (CMS/HCC) Start: 05-11-2024 MRI of right shoulder MD Radha Mckeon Work Phone: Start: 05-10-2024 Prothrombin time Radha Mckeon MD Work Phone: Start: 04-19-2024 Complete blood count with white cell differential, automated Robert Ledezma DO Work Phone: Start: 04-08-2024 End: 04-08-2024 Psychotherapy w/patient 60 minutes Panic disorder (CMS/HCC) Sadaf COLEMAN-S Work Phone: Comment on above: Panic disorder [...] 09-29-2023 H/O: surgery Hx of parotidectomy Sadaf QUINTANAW-S Work Phone: Start: 09-29-2023 Parotidectomy MD Radha Mckeon Work Phone: Start: 09-16-2023 Basic metabolic panel calcium total Neto Burton DO Work Phone: Start: 09-16-2023 Complete blood count with white cell differential, automated Neto Burton DO Work Phone: Start: 09-15-2023 End: 09-15-2023 Psychiatric diagnostic evaluation Sadaf Diamond Lj LOUIS Work Phone: Start: 09-09-2023 Prothrombin time Radha [...] section Jasper CARCAMO Cholecystectomy Jasper BAIRES Colonoscopy Jaspercoty ALMONTE Esophagogastroduodenoscopy P alondra ALMONTE Hammer toe operation Jasper ALMONTE History of arthropla sty of left knee Jasper ALMONTE Ligation of fallopian tube P alondra ALMONTE Release of trigger finger Ricki ALMONTE Resection of polyp Jasper VIGIL Plan of Treatment Date Care Activity Detail Author Start: 02-17-2028 Screening for malignant neoplasm of colon [facility] Start: 12-10-2025 Screening for malignant neoplasm of breast Mammogram [facility] Start: 09-30-2025 Medicare Annual Wellness (AWV) Medicare Annual Wellness (AWV) [facility] Start: 08-29-2025 End: 08-29-2025 Patient encounter procedure 08/29/2025 11:30 AM EST Office Visit [facility] [address] [address] Evangelina Watson MD [address] [place] [address] [facility] Start: 08-06-2025 Tobacco Screening Tobacco Screening [facility] Start: 06-14-2025 End: 09-14-2025 Basic metabolic 2000 panel - Serum or Plasma Basic Metabolic Panel Lab Routine Dilated aortic root (CMS-HCC) Expected: 06/14/2025 (Approximate), Expires: 09/14/2025 [facility] Service Area Work Phone: Comment on above: Expected: 06/14/2025 (Approximate), Expi res: 09/14/2025 Start: 06-14-2025 End: 09-14-2025 CTA Chest vessels WO and W contrast IV CT angio chest w and wo IV contrast Imaging Routine Dilated aortic root (CMS-HCC) Expected: 06/14/2025, Expires: 09/14/2025 [facility] Work Phone: Comment on above: Expected: 06/14/2025, Expires: Start: 05-31-2025 Adult BMI Screening Adult BMI Screening [facility] Start: 05-31-2025 End: 05-31-2025 Patient encounter procedure 05/31/2025 1:40 PM EDT Office Visit [facility] [address] [place] [phone] Gely Snow MD [address] [facility] [address] [place] [address] [facility] Start: 05-30-2025 End: 05-30-2025 Patient encounter procedure 05/30/2025 9:45 AM EDT Office Visit [facility] [address] [phone] Evangelina Watson MD [address] [place] [address] [facility] Start: 04-04-2025 Influenza vaccination Influenza Vaccine (#1) [facility] Start: 03-28-2025 End: 03-28-2025 Patient encounter procedure 03/28/2025 12:20 PM EDT Office Visit [facility] [address] [place] [phone] Radha Mckeon MD [address] [place] [address] [facility] Start: 02-22-2025 End: 02-22-2025 Patient encounter procedure 02/22/2025 10:50 AM EDT Office Visit [facility] [address] [place] [address] Tyrese Swanson MD [address] [place] [address] [facility] Start: 02-21-2025 End: 02-21-2025 Social Work 02/21/2025 10:00 AM EDT Social Work [facility] [address] [place] [address] Sadaf Calhoun LISW-S [address] [place] [address] [facility] Start: 01-17-2025 End: 01-17-2025 Patient encounter procedure 01/17/2025 11:00 AM EDT Office Visit [facility] [address] [place] [phone] Tyrese Swanson MD [address] [place] [address] [facility] END[facility]CRINOLOGY Start: 11-22-2024 End: 11-22-2024 Social Work [facility] Comment on above: Arrived Start: 11-11-2024 End: 01-11-2026 DBT Breast - bilateral screening Bilateral screening mammogram with tomosynthesis Imaging Routine Encounter for screening mammogram for malignant neoplasm of breast Expected: 11/11/2024, Expires: 01/11/2026 [facility] Work Phone: Comment on above: Expected: 11/11/2024, Expires: Start: 11-04-2024 End: 11-04-2024 Patient encounter procedure 11/04/2024 9:30 AM EDT Office Visit [facility] [address] [place] [phone] Patricio Cifuentes MD [address] [place] [address] [facility] Start: 10-26-2024 End: 10-26-2024 Professional / ancillary services management 10/26/2024 3:15 PM EDT Ancillary Procedure [facility] [address] [place] [phone] [facility] Start: 10-18-2024 End: 10-18-2025 25-hydroxyvitamin D3 [Mass/volume] in Serum or Plasma Vitamin D 25 hydroxy Total Lab Routine Tertiary hyperparathyroidism (CMS/HCC) H/O gastric bypass Expected: 10/18/2024 (Approximate), Expires: 10/18/2025 [facility] Comment on above: Expected: 10/18/2024 (Approximate), Expi res: 10/18/2025 Start: 10-18-2024 End: 10-18-2025 Magnesium [Mass/volume] in Serum or Plasma Magnesium Lab Routine Tertiary hyperparathyroidism (CMS/HCC) H/O gastric bypass Expected: 10/18/2024 (Approximate), Expires: 10/18/2025 [facility] Work Phone: Comment on above: Expected: 10/18/2024 (Approximate), Expi res: 10/18/2025 Start: 10-18-2024 End: 10-18-2025 Parathyrin.intact [Mass/volume] in Serum or Plasma PTH, intact Lab Routine Tertiary hyperparathyroidism ([facility]) H/O gastric bypass Expected: 10/18/2024 (Approximate), Expires: 10/18/2025 [facility] Comment on above: Expected: 10/18/2024 (Approximate), Expi res: 10/18/2025 Start: 10-18-2024 End: 10-18-2025 Renal function panel Renal function panel Lab Routine Tert[place] hyperpar[place]roidism [place] H/O gastric bypass Expected: 10/18/2024 (Approximate), Expires: 10/18/2025 [facility] Comment on above: Expected: 10/18/2024 (Approximate), Expi res: 10/18/2025 Start: 10-18-2024 End: 10-18-2024 Patient encounter procedure [facility] Comment on above: Arrived Start: 09-30-2024 End: 09-30-2024 Patient encounter procedure [facility] Comment on above: Arrived Start: 09-30-2024 End: 09-30-2025 DXA Skeletal system Views for bone density DEXA bone density Imaging Routine Postmenopausal Expected: 09/30/2024, Expires: 09/30/2025 [facility] Work Phone: Comment on above: Expected: 09/30/2024, Expires: Start: 09-27-2024 End: 09-27-2025 25-hydroxyvitamin D3 [Mass/volume] in Serum or Plasma Vitamin D 25 hydroxy Total Lab Routine Tertiary hyperparathyroidism ([facility]) Expected: 09/27/2024 (Approximate), Expires: 09/27/2025 [facility] Comment on above: Expected: 09/27/2024 (Approximate), Expi res: 09/27/2025 Start: 09-27-2024 End: 09-27-2025 Calcium, urine, 24 hour Calcium, urine, 24 hour Lab Routine Kidney stone Expected: 09/27/2024 (Approximate), Expires: 09/27/2025 [facility] Comment on above: Expected: 09/27/2024 (Approximate), Expi res: 09/27/2025 Start: 09-27-2024 End: 09-27-2025 CREATINE, 24 HOUR URINE CREATINE, 24 HOUR URINE Lab Routine Kidney stone Expected: 09/27/2024 (Approximate), Expires: 09/27/2025 [facility] Work Phone: Comment on above: Expected: 09/27/2024 (Approximate), Expi res: 09/27/2025 Start: 09-27-2024 End: 09-27-2025 Magnesium [Mass/volume] in Serum or Plasma Magnesium Lab Routine Tertiary hyperparathyroidism ([facility]) Expected: 09/27/2024 (Approximate), Expires: 09/27/2025 [facility] Comment on above: Expected: 09/27/2024 (Approximate), Expi res: 09/27/2025 Start: 09-27-2024 End: 09-27-2025 Oxalate, urine, 24 hour Oxalate, urine, 24 hour Lab Routine Kidney stone Expected: 09/27/2024 (Approximate), Expires: 09/27/2025 [facility] Comment on above: Expected: 09/27/2024 (Approximate), Expi res: 09/27/2025 Start: 09-27-2024 End: 09-27-2025 Parathyrin.intact [Mass/volume] in Serum or Plasma PTH, intact Lab Routine Tertiary hyperparathyroidism ([facility]) Expected: 09/27/2024 (Approximate), Expires: 09/27/2025 [facility] Comment on above: Expected: 09/27/2024 (Approximate), Expi res: 09/27/2025 Start: 09-27-2024 End: 09-27-2025 Renal function panel Renal function panel Lab Routine Tertiary hyperparathyroidism ([facility]) Expected: 09/27/2024 (Approximate), Expires: 09/27/2025 [facility] Comment on above: Expected: 09/27/2024 (Approximate), Expi res: 09/27/2025 Start: 09-27-2024 End: 09-27-2024 Patient encounter procedure [facility] Comment on above: Arrived Start: 09-13-2024 End: 09-13-2024 Patient encounter procedure 09/13/2024 2:00 PM EST Office Visit [facility] [address] [place] [address] Radha Mckeon MD [address] [place] [address] [facility] Start: 09-10-2024 Medicare Annual Wellness Visit Medicare Annual Wellness Visit (AWV) [facility] Start: 09-09-2024 Medicare Annual Wellness (AWV) Medicare Annual Wellness (AWV) [facility] Start: 09-06-2024 End: 09-06-2024 Social Work 09/06/2024 10:00 AM EST Social Work [facility] [address] [place] [address] Sadaf Calhoun, 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 [address] [place] [address] Arrived [facility] Comment on above: Arrived Start: 08-29-2024 Screening for osteoporosis Bone Density Scan [facility] Start: 08-24-2024 End: 08-24-2024 Patient encounter procedure 08/24/2024 3:10 PM EST Office Visit [facility] [address] [facility] [address] [place] [phone] Gely Snow MD [address] [facility] [address] [place] [address] [facility] Start: 06-28-2024 End: 06-28-2024 Social Work 06/28/2024 10:00 AM EST Social Work [facility] [address] [place] [address] Sadaf Calhoun, 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 [address] [place] [address] [facility] Start: 06-10-2024 End: 06-10-2024 Social Work 06/10/2024 10:00 AM EST Social Work [facility] [address] [place] [address] Sadaf Calhoun, 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 [address] [place] [address] [facility] Start: 05-10-2024 End: 05-10-2024 Patient encounter procedure 05/10/2024 2:20 PM EDT Office Visit [facility] [address] [place] [phone] Radha Mckeon MD [address] [place] [place], [place] [id number] Arrived [facility] Comment on above: Arrived Start: 04-08-2024 End: 04-08-2024 Social Work [facility] Comment on above: Arrived Start: 04-04-2024 COVID-19 Vaccine ( season) COVID-19 Vaccine ( season) [facility] Start: 04-04-2024 Influenza vaccination Influenza Vaccine (#1) [facility] Start: 02-27-2024 Plain X-ray of right shoulder XR shoulder RT min 2V* [facility] Start: 02-27-2024 XR Shoulder - right Views [facility] Start: 12-02-2023 Bacteria identified in Urine by Culture Urine Culture [facility] Start: 12-01-2023 CT Abdomen and Pelvis WO contrast [facility] Start: 12-01-2023 CT of abdomen and pelvis without contrast CT abdomen pelvis wo con [facility] Start: 11-28-2023 CT of chest [facility] Start: 11-28-2023 Plain chest X-ray XR chest 1V portable [facility] Start: 11-28-2023 XR Chest Single view [facility] Start: 10-25-2023 Screening for malignant neoplasm of breast Mammogram [facility] Start: 10-24-2023 [facility] Start: 10-13-2023 End: 10-13-2023 Social Work 10/13/2023 10:00 AM EDT Social Work [facility] [address] [place] [address] Sadaf Calhoun, MISSY [address] [place], [place] [phone] [facility] Start: 10-06-2023 End: 10-06-2023 Patient encounter procedure 10/06/2023 10:45 AM EST Office Visit [facility] [place] [address] [place] [address] Neto Burton, DO [address] [place] [address] [facility] [place] Start: 10-02-2023 End: 10-02-2023 Patient encounter procedure [facility] [place] Start: 09-29-2023 [facility] Start: 09-29-2023 [facility] Start: 09-29-2023 End: 09-29-2023 Patient encounter procedure 09/29/2023 1:00 PM EST Procedure Visit [facility] Neto Burton, [address] [place] [id number] [facility] Start: 09-18-2023 End: 09-18-2023 Professional / ancillary services management 09/18/2023 9:30 AM EST Ancillary Procedure [facility] [address] [facility] [address] [place] [address] Start: 09-15-2023 End: 09-15-2023 Social Work 09/15/2023 1:00 PM EST Social Work [facility] [address] [place] [address] Sadaf Calhoun S, JARED-S [address] [place] [address] [facility] Start: 09-09-2023 End: 09-09-2024 25-hydroxyvitamin D3 [Mass/volume] in Serum or Plasma Vitamin D 25 hydroxy Lab Routine Age-related osteoporosis without current pathological fracture (CMS/HCC) Expected: 09/09/2023 (Approximate), Expires: 09/09/2024 [facility] Comment on above: Expected: 09/09/2023 (Approximate), Expi res: 09/09/2024 Start: 09-09-2023 End: 09-09-2024 CBC W Auto Differential panel - Blood CBC and differential Lab Routine Age-related osteoporosis without current pathological fracture (CMS/HCC) Expected: 09/09/2023 (Approximate), Expires: 09/09/2024 [facility] Comment on above: Expected: 09/09/2023 (Approximate), Expi res: 09/09/2024 Start: 09-09-2023 End: 09-09-2024 Comprehensive metabolic 2000 panel - Serum or Plasma Comprehensive metabolic panel Lab Routine Age-related osteoporosis without current pathological fracture (CMS/HCC) Expected: 09/09/2023, Expires: 09/09/2024 [facility] Comment on above: Expected: 09/09/2023, Expires: Start: 09-09-2023 End: 09-09-2024 CT Chest W contrast IV CT chest w IV contrast Imaging Routine Ascending aortic aneurysm, unspecified whether ruptured ([facility]/HCC) Expected: 09/09/2023, Expires: 09/09/2024 [facility] Comment on above: Expected: 09/09/2023, Expires: Start: 09-09-2023 End: 09-09-2024 Parathyrin.intact [Mass/volume] in Serum or Plasma PTH, intact Lab Routine Age-related osteoporosis without current pathological fracture (CMS/HCC) Secondary hyperparathyroidism (CMS/HCC) Expected: 09/09/2023 (Approximate), Expires: 09/09/2024 [facility] Work Phone: Comment on above: Expected: 09/09/2023 (Approximate), Expi res: 09/09/2024 Start: 06-10-2023 [facility] Start: 05-12-2023 [facility] Start: 05-07-2023 [facility] Start: 05-02-2023 [facility] Start: 04-29-2023 [facility] Start: 04-04-2023 COVID-19 Vaccine ( season) COVID-19 Vaccine ( season) [facility] Start: 01-06-2018 [facility] Start: 12-30-2017 [facility] Start: 2017 Fall Risk Screening Fall Risk Screening [facility] Start: 2012 RSV High Risk: (Elderly (60+) or Population) (1 - Risk 60-74 years 1-dose series) RSV High Risk: (Elderly (60+) or Population) (1 - Risk 60-74 years 1-dose series) [facility] Start: 2012 RSV patients and/or patients aged 60+ years (1 - 1-dose 60+ series) RSV patients and/or patients aged 60+ years (1 - 1-dose 60+ series) [facility] Start: 1974 DTaP/Tdap/Td Vaccines (1 - Tdap) DTaP/Tdap/Td Vaccines (1 - Tdap) [facility] Start: 12-17-1971 DTaP,Tdap and Td Vaccines (1 - Tdap) DTaP,Tdap and Td Vaccines (1 - Tdap) [facility] Start: 1970 Adult BMI Follow Up Plan Adult BMI Follow Up Plan [facility] Start: 1970 Hepatitis C screening Hepatitis C Screening [facility] Start: 1964 Depression Screening Depression Screening [facility] Start: 1957 COVID-19 Vaccine (#1) COVID-19 Vaccine (#1) [facility] Start: 1952 Lipid panel Lipid Panel [facility] Start: 1950 Medicare Annual Wellness Visit Medicare Annual Wellness Visit (AWV) [facility] Start: 1950 Screening for malignant neoplasm of colon [facility] Ascorbic acid measurement [facility] Bacteria identified in Urine by Culture [facility] Comprehensive metabolic 1999 panel - Serum or Plasma [facility] Comprehensive metabolic 2000 panel - Serum or Plasma [facility] Comprehensive metabolic 2000 panel - Serum or Plasma Comprehensive metabolic panel Lab Routine 04/19/2024 11:17 AM EDT [facility] Work Phone: Ferritin [Mass/volume] in Serum or Plasma [facility] Work Phone: Ferritin [Mass/volume] in Serum or Plasma [facility] Ferritin [Mass/volume] in Serum or Plasma [facility] IGP, APT HPV,RFX 16/18,45 IGP, APT HPV,RFX 16/18,45 Lab Routine Encounter for gynecological examination without abnormal finding Encounter for screening for cervical cancer Ordered: 11/11/2024 [facility] Comment on above: Ordered: 11/11/2024 Iron and Iron bindin g capacity panel - Serum or Plasma Iron and TIBC Lab Routine 04/19/2024 11:17 AM EDT [facility] MR Shoulder - right WO contrast [facility] Patient Education [facility] Work Phone: Patient referral [facility] Work Phone: Pyridoxine [Mass/volume] in Serum or Plasma [facility] Selenium [Mass/volume] in Blood [facility] Thiamine [Moles/volume] in Blood [facility] Zinc [Mass/volume] i n Serum or Plasma [facility] Immunizations Immunization Date Immunization Notes Care Provider Ky[facility] 05-10-2024 influenza virus vaccine, unspecified formulation HELENA MAXWELL [facility] 05-10-2024 influenza, high dose seasonal, preservative-free Radha Mckeon MD Work Phone: [facility] 04-05-2024 influenza virus vaccine, unspecified formulation HELENA MAXWELL [facility] 04-05-2024 influenza, seasonal, injectable Gely Snow MD Work Phone: [facility] Work Phone: 04-20-2023 influenza virus vaccine, unspecified formulation Jasper ALMONTE [facility] 04-20-2023 Influenza, Seasonal, Quadrivalent, Adjuvanted Radha Mckeon MD Work Phone: [facility] 08-29-2022 influenza virus vaccine, unspecified formulation Jasper ALMONTE [facility] 08-29-2022 Influenza, High-dose Seasonal, Quadrivalent, Preservative Free Radha Mckeon MD Work Phone: [facility] 08-06-2021 COVID-19 mRNA Comirnatnatasha (Pfizer) MD Radha Mckeon Work Phone: [facility] 05-08-2021 influenza virus vaccine, unspecified formulation Jasper ALMONTE [facility] 05-08-2021 Influenza, High-dose Seasonal, Quadrivalent, Preservative Free Radha Mckeon MD Work Phone: [facility] 11-21-2020 COVID-19 mRNA Comirivana (Pfizer) MD Radha Mckeon Work Phone: [facility] 10-30-2020 COVID-19 mRNA Comirnatnatasha (Pfizer) MD Radha Mckeon Work Phone: [facility] 05-18-2020 influenza virus vaccine, unspecified formulation Jasper ALMONTE [facility] 05-18-2020 Influenza, Seasonal, Quadrivalent, Adjuvanted Radha Mckeon MD Work Phone: [facility] 07-18-2019 zoster vaccine recombinant Radha Mckeon MD Work Phone: [facility] 06-01-2019 pneumococcal conjuga te vaccine, 13 valent Radha Mckeon MD Work Phone: [facility] 05-03-2019 influenza virus vaccine, unspecified formulation Jasper ALMONTE [facility] 05-03-2019 influenza, high dose seasonal, preservative-free Radha Mckeon MD Work Phone: [facility] 05-03-2019 zoster vaccine recombinant Radha Mckeon MD Work Phone: [facility] 05-20-2018 influenza virus vaccine, unspecified formulation Jasper ALMONTE [facility] 05-20-2018 influenza, high dose seasonal, preservative-free Radha Mckeon MD Work Phone: [facility] 05-08-2018 influenza virus vaccine, unspecified formulation Jasper ALMONTE [facility] 05-08-2018 influenza, injectabl e, quadrivalent, contains preservative Radha Mckeon MD Work Phone: [facility] 05-04-2018 seasonal influenza, intradermal, preservative free Radha Mckeon MD Work Phone: [facility] 01-27-2018 pneumococcal polysaccharide vaccine, 23 valent Radha Mckeon MD Work Phone: [facility] Payers Date Payer Category Payer Medicare HMO [id number] 2024 Medicare (Managed Care) 1.2. [id number] 2024 Medicare [id number] 2023 Self-pay [id number] 2021 Private Health Insurance [employer] [id number] 2021 Unknown 2017 Commercial Indemnity [facility] [id number] 2017 Medicare [id number] [id number]. [id number] 1959 Medicare [id number] 1959 Medicare [id number] 1959 Unknown [id number] 1952 Unknown [id number] 2.16.840.1.545958.3.579.2. 356 1952 Unknown [id number] 2.16.840.1.902083.3.579.2. 356 1952 Unknown [id number] 2.16.840.1.397381.3.579.2. 593 1952 Unknown [id number] 2.16.840.1.312828.3.579.2. 593 1952 Unknown [id number] 2.16.840.1.200598.3.579.2. 1286 1952 Unknown [id number] 2.16.840.1.753015.3.579.2. 1286 1952 Unknown [id number] 2.16.840.1.416792.3.579.2. 1244 1952 Unknown [id number] 2.16.840.1.412740.3.579.2. 1244 1952 Unknown [id number] 2.16.840.1.677933.3.579.2. 1952 Unknown [id number] 2.16.840.1.277085.3.579.2. 72 1952 Unknown [id number] 2.16.840.1.394029.3.579.2. 1258 1952 Unknown [id number] 2.16.840.1.143023.3.579.2. 1258 1952 Unknown [id number] 2.16.840.1.359004.3.579.2. 1258 1952 Unknown [id number] 2.16.840.1.057254.3.579.2. 1258 1952 Unknown [id number] 2.16.840.1.556800.3.579.2. 1258 1952 Unknown [id number] 2.16.840.1.271605.3.579.2. 1258 1952 Unknown [id number] 2.16.840.1.870960.3.579.2. 1258 1952 Unknown [id number] 2.16.840.1.176009.3.579.2. 1258 1952 Unknown [id number] 2.16.840.1.558443.3.579.2. 1258 1952 Unknown [id number] 2.16.840.1.444756.3.579.2. 1258 1952 Unknown [id number] 2.16.840.1.537851.3.579.2. 1258 1952 Unknown [id number] 2.16.840.1.764783.3.579.2. 1258 1952 Unknown [id number] 2.16.840.1.283732.3.579.2. 1259 1952 Unknown [id number] 2.16.840.1.880955.3.579.2. 1258 1952 Unknown [id number] 2.16.840.1.665989.3.579.2. 1258 1952 Unknown [id number] 2.16.840.1.366990.3.579.2. 1258 1952 Unknown [id number] 2.16.840.1.555404.3.579.2. 1258 1952 Unknown [id number] 2..840.1.258753.3.579.2. 1258 1952 Unknown [id number] 2..840.1.421238.3.579.2. 1258 1952 Unknown [id number] 2.840.1.499049.3.579.2. 1258 Medicare [id number] Private Health Insurance [facility] [employer] [id number] Private Health Insurance [facility] [id number] Unknown [id number] 2.840.1.981878.3.579.2. 531 Unknown [id number] 2.840.1.733861.3.579.2. 531 Unknown [id number] 2.840.1.449842.3.579.2. 531 Unknown [id number] 2..840.1.386104.3.579.2. 531 Unknown [id number] 2.16.840.1.461086.3.579.2. 531 Unknown [id number] 2.16.840.1.193460.3.579.2. 531 Unknown [id number] 2..840.1.270310.3.579.2. 531 Unknown [id number] 2.16.840.1.604197.3.579.2. 531 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 Date Type Detail Facility Unknown if ever smoked [facility] Other Start: 07-15-2023 End: 09-30-2024 Sex Assigned At [facility] Start: 1950 Sex Assigned At Female [facility] Start: 05-30-2023 End: 06-10-2023 Tobacco smoking status NHIS Never smoked tobacco (finding) [facility] Start: 01-09-2023 End: 05-30-2023 Tobacco use and exposure Smokeless tobacco non-user [facility] Start: 09-09-2023 End: 11-11-2024 Alcohol intake Current drinker of alcohol (finding) [facility] Start: 07-15-2023 End: 09-09-2023 Alcohol intake [facility] Within the last year , have you been afraid of your partner or ex-partner? No [facility] Do you belong to any clubs or organizations such as episcopal groups, unions, fraZafu or athletic groups, or school groups? Yes [...] 09-14-2024 Exposure to SARS-CoV-2 (event) Not sure [facility] Start: 01-13-2018 Alcohol Comment social [facility] Start: 03-09-2015 End: 01-04-2025 Sex Female (finding) [facility] Goals Date Patient Goal Desired Activity /State Functional Status Date Assessment Result Facility 10-04-2024 Functional Status N/A [facility] 12-10-2023 Functional Status N/A [facility] Clinical Notes 06-24-2017 to 01-03-2025 Note Date & Type Note Facility 01-03-2025 Evaluation note Diagnosis Onset Date Resolution Right rotator cuff tear arthropathy acute January 03, 2025 8 :09am Right shoulder pain acute January 03, 2025 8:09am Shoulder impingement syndrome acute January 03, 2025 8 :09am Strain of right biceps acute Ju 2024 8:09am [facility] Work Phone: 1(184) 334-239205-15-2025 Telephone encounter Note* Telephone Encounter - Sunny Lin - 2024 10:08 AM EDT Refill [facility] to [facility] please and thank you! [facility] [id number] Miscellaneous Notes* Telephone Encounter - Sunny Lin - 2024 10:08 AM EDT Refill vitamin D to [facility] please and thank you! documented in this [facility]05-02-2025 History of Present illness Narrative* Patricio Cifuentes MD - 12/03/2024 11:58 AM EDT Vulvitis documented in this [facility]05-01-2025 Telephone encounter Note* Telephone Encounter - Shelby Milner - 12/02/2024 11:05 AM EDT Patient said that the clobetasol has not been called into the pharmacy yet. [id number] Miscellaneous Notes* Telephone Encounter - Shelby Milner - 12/02/2024 11:05 AM EDT Patient said that the clobetasol has not been called into the pharmacy yet. documented in this [facility]04-21-2025 History of Present illness Narrative* Cristal Lovell MA - 11/22/2024 11:15 AM EDT Patient here for INR INR- 2.3 PT- 25.3 Taking 2mg daily documented in this [facility]04-10-2025 History of Present illness Narrative* Patricio Cifuentes MD - 11/11/2024 10:45 AM EDT Images from the original note were not included. Patricio Cifuentes MD Obstetrics and Gynecology Patient: Nugent, Rebecca L : 1950 (73 y.o.) Yearly Wellness Exam Date: 11/11/2024 Reason for Visit - Chief Complaint Patient presents with Gynecologic Exam LMP: [employer] Last DEXA: 08/29/222024--Dr Mckeon Last Mammogram: 10/24/22 - Neg Last Pap: 09/26/22 - Neg Colonoscopy: 02/16/2018 Parotidectomy for cancer Medicare Y Reclast pending Complaints: none The patient reports experiencing severe night sweats, stating she sleeps with a nightgown, sheet, and open-weight blanket, yet still experiences significant sweating. She also reports hair loss. The patient expresses frustration that these symptoms have recurred after a period of improvement, finding it discouraging. The patient has a history of osteoporosis. Her last DEXA scan showed T-scores of -2.2 in the spine and -2.5 in the left hip. She has received one treatment of Reclast for this condition. The patient also reports having an aneurysm, which is currently stable.m. The patient's medical history includes aneurysm and osteoporosis. Her current and past medications include one treatment of Reclast. A review of systems indicates night sweats (constitutional) and hair loss (integumentary). Visit Vitals BP 120/70 (BP Location: Left arm) Wt 153 lb LMP (LMP Unknown) BMI 26.26 kg/m OB Status Postmenopausal Smoking Status Never BSA 1.77 m History of Present Illness, Associated Treatments and Results - OB History Para Term AB Living 2 0 0 0 0 0 SAB IAB Ectopic Multiple Live Births 0 0 0 0 0 # Outcome Date GA Lbr Russ/2nd Weight Sex Type Anes PTL Lv 2 1 Obstetric Comments Total living children 2 Last pap smear date 06/03/18 nilm Last mammogram date 10/22/21 benign, dexa 09/11/20 osteoporosis(follows with Dr. Williamson) Review of Systems - Constitutional: Negative. HENT: Negative. Eyes: Negative. Respiratory: Negative. Cardiovascular: Negative. Gastrointestinal: Negative. Endocrine: Negative. Genitourinary: Negative. Musculoskeletal: Negative. Skin: Negative. Allergic/Immunologic: Negative. Neurological: Negative. Hematological: Negative. Psychiatric/Behavioral: Negative. Allergies Allergen Reactions Enoxaparin Itching and Rash Current Outpatient Medications: acetaminophen (Tylenol) 325 MG tablet, Take 650 mg by mouth every 6 (six) hours if needed, Disp: , Rfl: albuterol (ProAir Digihaler) 90 mcg/act breath-activated inhaler (w/ sensor), 2 puffs every 4 (four) hours if needed for wheezing, Disp: , Rfl: amoxicillin (Amoxil) 500 MG capsule, , Disp: , Rfl: buPROPion XL (Wellbutrin XL) 300 MG 24 hr tablet, TAKE 1 TABLET BY MOUTH EVERY DAY IN THE MORNING FOR 90 DAYS, Disp: 90 tablet, Rfl: 4 busPIRone (Buspar) 5 MG tablet, Take 1 tablet (5 mg) by mouth 3 (three) times a day as needed (anxiety), Disp: 30 tablet, Rfl: 0 cholecalciferol (Vitamin D-3) 50 MCG (2000 UT) tablet, Take by mouth Daily Four times a week, Disp:, Rfl: famotidine (Pepcid) 20 MG tablet, TAKE 1 TABLET BY MOUTH EVERY DAY AT BEDTIME NEEDED, Disp: 90 tablet, Rfl: 4 fluticasone (Flonase) 50 MCG/ACT nasal spray, Administer 2 sprays into affected nostril(s) in the morning., Disp: , Rfl: hydroxychloroquine (Plaquenil) 200 MG tablet, 1 (one) time each day at the same time., Disp: , Rfl: lisinopril 2.5 MG tablet, Take 2.5 mg by mouth in the morning., Disp: , Rfl: nitroglycerin (Rectiv) 0.4 % (w/w) rectal ointment, , Disp: , Rfl: PARoxetine (Paxil) 30 MG tablet, TAKE 1 TABLET BY MOUTH EVERY DAY IN THE MORNING, Disp: 90 tablet, Rfl: 1 silver sulfADIAZINE (Silvadene) 1 % cream, Apply topically Daily, Disp: 25 g, Rfl: 0 triamcinolone (Kenalog) 0.1 % cream, APPLY TO AFFECTED AREA TWICE A DAY, Disp: 60 g, Rfl: 1 warfarin (Coumadin) 2 MG tablet, TAKE 1 TABLET BY MOUTH EVERY DAY. TAKE 1 MG ON TUESDAYS, Disp: 90 tablet, Rfl: 11 zoledronic acid (Zometa) 4 MG/5ML injection, Infuse 4 mg into a venous catheter 1 (one) time, Disp:, Rfl: Past Medical History: Diagnosis Date Abnormal level of blood mineral Allergic 09/26/23 Anemia 01/2017 Anxiety Aortic aneurysm ([facility]) Arthritis Bariatric surgery status Bradycardia Chronic pain disorder 12/27/2022 Circumscribed scleroderma Cough 02/26/2017 Depression ([facility]) Difficulty walking 12/27/2022 DVT (deep venous thrombosis) ([facility]) 1996 R leg Factor V Leiden mutation ([facility]) 1997 GERD (gastroesophageal reflux disease) Heart murmur History of medical problems Biliopancreatic bypass Kidney stones 05/2014 Lichen sclerosus Lung nodule 2016 Lymphopenia Osteopenia Osteoporosis ([facility]) 12/27/2022 Other chronic pain 12/27/2022 Panic disorder ([facility]) Plantar wart 12/27/2022 PMB (postmenopausal bleeding) 12/27/2022 Polydipsia 12/27/2022 Secondary hyperparathyroidism ([facility]) Sleep apnea Sleep apnea, obstructive 2014 Vaginal [...] KNEE SURGERY Left 12/31/2018 LUNG BIOPSY 2017 PA CORRECTION HAMMERTOE PA LIGATION/BIOPSY TEMPORAL ARTERY 2017 biopsy SALIVARY GLAND SURGERY 09/29/2023 Left Parotid TRIGGER FINGER RELEASE TUBAL LIGATION Bilateral Family History Problem Relation Name Age of Onset Cancer Mother Ana Other (polio) Mother Ana Heart disease Mother Ana Arthritis Mother Ana Other (Parkinson's Disease) Mother Ana Cancer Father Cherrie Alzheimer's disease Father Cherrie Arthritis Father Cherrie Hearing loss Father Cherrie Bipolar disorder Son Alcohol abuse Neg Hx Drug abuse Neg Hx 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 Tobacco Use Smoking Status Never Smokeless Tobacco Never Physical Exam - General appearance, mentation, extraocular movements, facial strength and movement, hearing, upper and lower extremity strength and tone, sensation to gross testing, coordination, and gait are normalor at baseline unless noted below. Physical Exam Constitutional: Appearance: Normal appearance. Genitourinary: Right Labia: No rash. Left Labia: No rash. Moderate vaginal atrophy present. No cervical lesion. Uterus is anteverted. Breasts: Right: Normal. No mass or nipple discharge. Left: Normal. No mass or nipple discharge. HENT: Head: Normocephalic and atraumatic. Cardiovascular: Rate and Rhythm: Normal rate and regular rhythm. Pulmonary: Breath sounds: Normal breath sounds. Abdominal: General: There is no distension. Palpations: Abdomen is soft. There is no mass. Tenderness: There is no abdominal tenderness. Musculoskeletal: General: Normal range of motion. Cervical back: Neck supple. Lymphadenopathy: Cervical: No cervical adenopathy. Neurological: Mental Status: She is alert and oriented to person, place, and time. Skin: General: Skin is warm and dry. Psychiatric: Mood and Affect: Mood normal. Behavior: Behavior normal. Short vagina Assessment/Plan ICD-10-CM 1. Encounter for gynecological examination without abnormal finding Z01.419 IGP, APT HPV,RFX 16/18,45 2. Encounter for screening mammogram for malignant neoplasm of breast Z12.31 Bilateral screening mammogram with tomosynthesis 3. Osteoporosis, post-menopausal (CMS/HCC) M81.0 4. Encounter for screening for cervical cancer Z12.4 IGP, APT HPV,RFX 16/18,45 5. Alopecia L65.9 Pap and exam performed. Mammogram ordered Results can be found in MyChart in 7 days Bone health discussed Return 1 year 1. Menopausal symptoms: - Patient presents with night sweats and hair loss, consistent with estrogen deficiency associated with menopause - Symptoms causing significant distress to the patient - Plan: a) Recommend wyry-scw-flziccn black cohosh for night sweats b) Refer to middle school resource teacher for evaluation of hair loss c) Consider oral minoxidil for hair loss, pending middle school resource teacher assessment and blood pressure status 2. Osteoporosis: - History of osteoporosis, currently treated with Reclast (zoledronic acid) - Recent DEXA scan shows T-scores of -2.2 in the spine and -2.5 in the left hip - Condition appears stable based on comparison to previous year's results - Plan: a) Continue current treatment with per Rheumatology b) Schedule DEXA scan for this year to monitor bone density c) Monitor for potential osteonecrosis of the jaw, a known side effect of bisphosphonates like Reclast 3. Preventive care: - Patient is due for routine preventive care screenings - Plan: a) Schedule annual mammogram b) Colonoscopy due in 10 years (based on previous normal results) c) Follow-up appointment in 2 years Electronically signed by Patricio Cifuentes MD documented in this [facility] [id number] Miscellaneous Notes* Telephone Encounter - Miriam Conrad CMA - 10/25/2024 3:24 PM EDT [employer] called to verify that she would be changing DMEs to [employer]. Patient stated she was and gave the fax number as [phone]. Patient was also made aware that [facility] is still requesting her information for supplies and may want to call them and let them know they switched DME companies. Patient understood. [facility] Telephone encounter Note* Telephone Encounter - Miriam Conrad CMA - 10/25/2024 3:24 PM EDT [employer] called to verify that she would be changing DMEs to [employer]. Patient stated she was and gave the fax number as [phone]. Patient was also made aware that [facility] is still requesting her information for supplies and may want to call them and let them know they switched DME companies. Patient understood. [facility]03-17-2025 History of Present illness Narrative* Tyrese Swanson MD - 10/18/2024 11:40 AM EDT Rebecca Nugent is a 73 y.o. female Tyrese Swanson MD presents with chief complaint of Follow-up (PARATHYROID LAB) HPI: IM : 10/2026 Follow-up visit 10/28/2024 24 hour urine creatinine 8.6 ( 800-1800), total volume 1775, I do not have the results of 24 hour urine calcium and oxalate, I do not have calcium, GFR 61, vitamin-D 21, PTH I do not have it. IM : 09/2024 Follow up Visit in 09/27/2024 with recommendation of her flooring professional for evaluation for possible oxalate kidney stone, [...] at 8.7, PTH 201 (12-88) persistently high, itwas 215 in April 2019 and 190 in January 2019, zinc 45 (45-150), she has persistently high PTH after replacing vitamin D, but calcium within normal limits. Had kidney stone in 2004 and 2013, does not remember if she has had another one in [address] Cespedes for possible polymyalgiarheumatica and at some point they suspected joint arthritis, they put her for short-term steroids then off. They ACTH stim test done within normal limits, cortisol 21. She is not on any steroids now. SUBJECTIVE: MEDICATIONS: Current Outpatient Medications Medication Instructions acetaminophen (TYLENOL) 650 mg, Every 6 hours PRN albuterol (ProAir Digihaler) 90 mcg/act breath-activated inhaler (w/ sensor) 2 puffs, Every 4 hoursPRN amoxicillin (Amoxil) 500 MG capsule buPROPion XL [...] nitroglycerin (Rectiv) 0.4 % (w/w) rectal ointment PARoxetine (PAXIL) 30 mg, Oral, Every morning silver sulfADIAZINE (Silvadene) 1 % cream Topical, Daily triamcinolone (Kenalog) 0.1 % cream Topical, 2 times daily, to affected area warfarin (Coumadin) 2 MG tablet TAKE 1 TABLET BY MOUTH EVERY DAY. TAKE 1 MG ON TUESDAYS zoledronic acid (ZOMETA) 4 mg, Once ALLERGIES: Allergies Allergen Reactions Enoxaparin Itching and Rash Past Medical History: Diagnosis Date Abnormal level of blood mineral Allergic 09/26/23 Anemia 01/2017 Anxiety Aortic aneurysm ([facility]) Arthritis Bariatric surgery status Bradycardia Chronic pain disorder 12/27/2022 Circumscribed scleroderma Cough 02/26/2017 Depression ([facility]) Difficulty walking 12/27/2022 DVT (deep venous thrombosis) ([facility]) 1996 R leg Factor V Leiden mutation ([facility]) 1997 GERD (gastroesophageal reflux disease) Heart murmur History of medical problems Biliopancreatic bypass Kidney stones 05/2014 Lichen sclerosus Lung nodule 2016 Lymphopenia Osteopenia Osteoporosis ([facility]) 12/27/2022 Other chronic pain 12/27/2022 Panic disorder ([facility]) Plantar wart 12/27/2022 PMB (postmenopausal bleeding) 12/27/2022 Polydipsia 12/27/2022 Secondary hyperparathyroidism ([facility]) Sleep apnea Sleep apnea, obstructive 2014 Vaginal [...] KNEE SURGERY Left 12/31/2018 LUNG BIOPSY 2017 PA CORRECTION HAM[place]ERT[place] PA LIGATION/BIOPSY TEMPORAL ARTERY 2017 biopsy SALIVARY GLAND SURGERY 09/29/2023 Left Parotid TRIGGER FINGER RELEASE TUBAL LIGATION Bilateral REVIEW OF SYMPTOMS: 14 POINT OF SYSTEM REVIEWED AND NEGATIVE OBJECTIVE: Visit Vitals BP 104/62 Pulse 52 Resp 14 Ht 5' 4 Wt 160 lb LMP (LMP Unknown) SpO2 97% BMI 27.46 kg/m OB Status Postmenopausal Smoking Status Never [...] - PTH, intact; Future Calcium within normal limits we will watch. H/O gastric bypass - Magnesium; Future - Renal function panel; Future - Vitamin D 25 hydroxy Total; Future - PTH, intact; Future Kidney stone We will check 24 hour urine calcium and oxalate. Age-related osteoporosis without current pathological fracture (CMS/HCC) She is on Reclast with her virology teacher oncologist. Vitamin-D deficiency Level 21 advised to start 2000 units daily Follow up in about 6 months (around 04/20/2025). documented in this encounterFreeman Neosho [id number] Radiology Diagnostic study [facility] [place] [address] [place] [address] Ultrasound Report Signed Patient: Rebecca Herrera MR#: [id number] : 1950 Acct:[id number] Age/Sex: 73 / F ADM Date: 5 Loc: Room: Type: [facility] Attending Dr: Helena Maxwell PA-C Ordering Provider: Helena Maxwell PA-C Date of Service: 10/11/24 US/US renal BI: URETERAL STONE Copies to: Helena Maxwell PA-C~ Bilateral Renal Ultrasound HISTORY: History of kidney stones COMPARISON: None RIGHT kidney measures 11.1 cm. LEFT kidney measures 10.5 cm. Hydronephrosis: None RENAL STONE: No shadowing renal calculus is seen. RENAL LESIONS: No renal lesion identified. URINARY BLADDER: Bilateral ureteral jets identified. REPRODUCTIVE STRUCTURES Not assessed US/US renal BI IMPRESSION : No hydronephrosis. Impression dictated by: Steven Dos Santos M.D.10/11/2024 4:51 PM Dictation Location: [place] [address] Tech: Geraldine Briggs Transcribed By: YASEMIN 10/11/241650 Dictated By: Steven Dos Santos DO 10/11/241649 Signed By: 10/11/241650 [facility]03-03-2025 Hospital Discharge instructions Patient Education 10/04/2024 15:48:47 Kidney Stones, Ckbq-vm-Quwz Kidney Stones Kidney stones are rock-like masses that form inside of the kidneys. Kidneys are organs that make pee (urine). A kidney stone may move into other parts of the urinary tract, including: The tubes that connect the kidneys to the bladder (ureters). The bladder. The tube that carries urine out of the body (urethra). Kidney stones can cause very bad pain and can block the flow of pee. The stone usually leaves your body through your pee. A doctor may need to take out the stone. What are the causes? Kidney stones may be caused by: Too much calcium in the body. This may be caused by too much parathyroid hormone in the blood. Uric acid crystals in the bladder. The body makes uric acid when you eat certain foods. Narrowing of one or both of the ureters. A kidney blockage that you were born with. Past surgery on the kidney or the ureters. What increases the risk? You are more likely to develop this condition if: You have had a kidney stone in the past. Other people in your family have had kidney stones. You do not drink enough water. You eat a diet that is high in protein, salt (sodium), or sugar. You are very overweight (obese). What are the signs or symptoms? Symptoms of a kidney stone may include: Pain in the side of the belly, right below the ribs. Pain usually spreads to the groin. Needing to pee often or right away. Pain when peeing. Blood in your pee. Feeling like you may vomit (nauseous). Vomiting. Fever and chills. How is this treated? Treatment depends on the size, location, and makeup of the kidney stones. The stones will often pass out of the body when you pee. You may need to: Drink more fluid to help pass the stone. ?In some cases, you may be given fluids through an IV tube at the hospital. Take medicine for pain. Change your diet to help keep kidney stones from coming back. Sometimes, you may need: A procedure to break up kidney stones using a beam of light (laser) or shock waves. Surgery to remove the kidney stones. Follow these instructions at home: Medicines Take kjhi-pco-beeyyjs and prescription medicines only as told by your doctor. Ask your doctor if the medicine prescribed to you requires you to avoid driving or using machinery. Eating and drinking Drink enough fluid to keep your pee pale yellow. ?You may be told to drink at least 8 10 glasses of water each day. This will help you pass the stone. If told by your doctor, change your diet. You may be told to: ?Limit how much salt you eat. ?Eat more fruits and vegetables. ?Limit how much meat, poultry, fish, and eggs you eat. Follow instructions from your doctor about what you may eat and drink. General instructions Collect pee samples as told by your doctor. You may need to collect a pee sample: ?24 hours after a stone comes out. ?8 12 weeks after a stone comes out, and every 6 12 months after that. Strain your pee every time you pee. Use the strainer that your doctor recommends. Do not throw out the stone. Keep it so that it can be tested by your doctor. Keep all follow-up visits. You may need X-rays and ultrasounds to make sure the stone has come out. How is this prevented? To prevent another kidney stone: Drink enough fluid to keep your pee pale yellow. This is the best way to prevent kidney stones. Eat healthy foods. Avoid certain foods as told by your doctor. You may be told to eat less protein. Stay at a healthy weight. Where to find more information National Kidney Foundation (NKF): kidney.org Urology Care Foundation (UCF): urologyhealth.org Contact a doctor if: You have pain that gets worse or does not get better with medicine. Get help right away if: You have a fever or chills. You get very bad pain. You get new pain in your belly. You faint. You cannot pee. This information is not intended to replace advice given to you by your health care provider. Make sure you discuss any questions you have with your health care provider. Document Revised: 03/14/2023 Document Reviewed: 03/14/2023 [employer] Patient Education 2023 [employer]. Follow Up Care 09/17/2024 15:26:55 With:HELENA MAXWELL PA-C, LUPEL Address: [address] [place] [address] Business (1) When: Unknown Comments:pending results of imaging/testing, will call with next steps [facility] 03-03-2025 NotePatient Education Urology Kidney Stones Kidney stones are rock-like masses that form inside of the kidneys. Kidneys are organs that make pee (urine). A kidney stone may move into other parts of the urinary tract, including: ??? The tubes that connect the kidneys to the bladder (ureters). ??? The bladder. ??? The tube that carries urine out of the body (urethra). Kidney stones can cause very bad pain and can block the flow of pee. The stone usually leaves your body through your pee. A doctor may need to take out the stone. What are the causes? Kidney stones may be caused by: ??? Too much calcium in the body. This may be caused by too much parathyroid hormone in the blood. ??? Uric acid crystals in the bladder. The body makes uric acid when you eat certain foods. ??? Narrowing of one or both of the ureters. ??? A kidney blockage that you were born with. ??? Past surgery on the kidney or the ureters. What increases the risk? You are more likely to develop this condition if: ??? You have had a kidney stone in the past. ??? Other people in your family have had kidney stones. ??? You do not drink enough water. ??? You eat a diet that is high in protein, salt (sodium), or sugar. ??? You are very overweight (obese). What are the signs or symptoms? Symptoms of a kidney stone may include: ??? Pain in the side of the belly, right below the ribs. Pain usually spreads to the groin. ??? Needing to pee often or right away. ??? Pain when peeing. ??? Blood in your pee. ??? Feeling like you may vomit (nauseous). ??? Vomiting. ??? Fever and chills. How is this treated? Treatment depends on the size, location, and makeup of the kidney stones. The stones will often pass out of the body when you pee. You may need to: ??? Drink more fluid to help pass the stone. ? In some cases, you may be given fluids through an IV tube at the hospital. ??? Take medicine for pain. ??? Change your diet to help keep kidney stones from coming back. Sometimes, you may need: ??? A procedure to break up kidney stones using a beam of light (laser) or shock waves. ??? Surgery to remove the kidney stones. Follow these instructions at home: Medicines ??? Take dkqr-cjb-shyciqb and prescription medicines only as told by your doctor. ??? Ask your doctor if the medicine prescribed to you requires you to avoid driving or using machinery. Eating and drinking ??? Drink enough fluid to keep your pee pale yellow. ? You may be told to drink at least 8?10 glasses of water each day. This will help you pass the stone. ??? If told by your doctor, change your diet. You may be told to: ? Limit how much salt you eat. ? Eat more fruits and vegetables. ? Limit how much meat, poultry, fish, and eggs you eat. ??? Follow instructions from your doctor about what you may eat and drink. General instructions ??? Collect pee samples as told by your doctor. You may need to collect a pee sample: ? 24 hours after a stone comes out. ? 8?12 weeks after a stone comes out, and every 6?12 months after that. ??? Strain your pee every time you pee. Use the strainer that your doctor recommends. ??? Do not throw out the stone. Keep it so that it can be tested by your doctor. ??? Keep all follow-up visits. You may need X-rays and ultrasounds to make sure the stone has come out. How is this prevented? To prevent another kidney stone: ??? Drink enough fluid to keep your pee pale yellow. This is the best way to prevent kidney stones. ??? Eat healthy foods. ??? Avoid certain foods as told by your doctor. You may be told to eat less protein. ??? Stay at a healthy weight. Where to find more information ??? National Kidney Foundation (NKF): kidney.org ??? Urology Care Foundation (UCF): urologyhealth.org Contact a doctor if: ??? You have pain that gets worse or does not get better with medicine. Get help right away if: ??? You have a fever or chills. ??? You get very bad pain. ??? You get new pain in your belly. ??? You faint. ??? You cannot pee. This information is not intended to replace advice given to you by your health care provider. Make sure you discuss any questions you have with your health care provider. Document Revised: 03/14/2023 Document Reviewed: 03/14/2023 [employer]ze Patient Education ? 2023 [employer].[facility] 09-30-2024 History of Present illness Narrative* Radha Mckeon MD - 09/30/2024 3:00 PM EST Images from the original note were not [...] at all Patient Health Questionnaire-9 Score: 0 Stephanie Fall Risk History of Falling, Immediate or [...] by direct observation Three Word Registration: Banana, Mcnabb, Chair Clock Drawing: Normal Clock - 2 Three Word Recall: All 3 words correct - 3 Total Score (0-5 Points): 5 Pain Assessment Pain Score: 1 History of Present Illness The patient presents for evaluation of anticoagulation management, blood pressure management, kidney stones, osteoporosis, and overall health. She has recently acquired new insurance coverage and is considering a transition back to either [employer] or [employer]. She anticipates a call from her insurance provider, [employer], regarding this matter tomorrow morning. She expresses [...] this year, which was particularly distressing. She isunder the care of an block hand to prevent future occurrences and is scheduled to collect a 24-hour urine sample at [facility] in 3 weeks. Her vitamin D level [...] inhaler (w/ sensor) 2 puffs, Every 4 hoursPRN amoxicillin (Amoxil) 500 MG capsule buPROPion XL (Wellbutrin XL) 300 MG 24 hr tablet TAKE 1 TABLET BY MOUTH EVERY DAY IN THE MORNING FOR 90 DAYS busPIRone (BUSPAR) 5 mg, Oral, 3 times daily PRN cholecalciferol (Vitamin D-3) 50 MCG (2000 UT) tablet Daily famotidine (PEPCID) 20 mg, [...] (CMS/HCC) Managed by endo Age related osteoporosis ([facility]/HCC) Managed by endo yearly zometa Autoimmune disease ([facility]/HCC) Per rheumatology Factor 5 Leiden mutation, heterozygous (CMS/HCC) On anticoagulation Major depressive disorder, single episode, moderate (HCC) ([facility]) stable Mild persistent asthma without complication ([facility]) stable Obstructive sleep apnea syndrome Good cpap compliance PMR (polymyalgia rheumatica) ([facility]) Per rheuamtologu Postoperative malabsorption ([facility]) Secondary hyperparathyroidism ([facility]/HCC) monitored Thoracic ascending aortic aneurysm ([facility]) Repeat echo in 1 year Moderate episode of recurrent major depressive disorder ([facility]/HCC) History of deep venous thrombosis (DVT) of distal vein of right lower extremity Mediastinal lymphadenopathy Primary osteoarthritis of both knees Aortic root dilatation ([facility]) Repeat echo in 1 year Other Visit Diagnoses Routine general medical examination at a health care facility - Primary terminal carman (current) use of anticoagulants Relevant Orders POCT Protime-INR, fingerstick docked device (Completed) Postmenopausal Relevant Orders DEXA bone density Osteoporosis, unspecified osteoporosis type, unspecified pathological fracture presence ([facility]) zometa As of your medicare wellness visit , the medical team reviewed your chart and chronic problems and treatment. Your information regarding healthy diet, activity, immunizations, depression screening, advance directives , activities of daily living medications, cognitive screening and risk factors fordisease were reviewed or addressed Assessment & Plan 1. Anticoagulation management. Her International Normalized Ratio (INR) is currently at an optimal level of 2.3. She is advised toconsult with her facility supervisor regarding the potential benefits of lipoprotein A testing. 2. Blood pressure management. She is currently on lisinopril for blood pressure management. 3. Kidney stones. She is under the care of an block hand to prevent recurrence of kidney stones and is scheduledto collect a 24-hour urine sample at [facility] in 3 weeks. 4. Osteoporosis. She is receiving infusions for osteoporosis, [facility]. 5. Overall health. She maintains a healthy diet and engages in regular physical activity, including yoga, which she reports as beneficial. She reports normal bowel movements. Follow-up The patient will follow up in 6 months or sooner if any complications arise. documented in this encounterFreeman Neosho [id number] History of Present illness Narrative* Tyrese Swanson MD - 09/27/2024 11:40 AM EST Rebecca Nugent is a 73 y.o. female Sadaf Calhoun LISW* presents with chief complaint of Thyroid Problem and Follow-up (1.5 YRS 09/2023 PAROTIDECTOMY) HPI: IM : 09/2024 Follow up Visit in 09/27/2024 with recommendation of her flooring professional for evaluation for possible oxalate kidney stone, [...] at 8.7, PTH 201 (12-88) persistently high, itwas 215 in April 2019 and 190 in January 2019, zinc 45 (45-150), she has persistently high PTH after replacing vitamin D, but calcium within normal limits. Had kidney stone in 2004 and 2013, does not remember if she has had another one in [address] Cespedes for possible polymyalgiarheumatica and at some point they suspected joint arthritis, they put her for short-term steroids then off. They ACTH stim test done within normal limits, cortisol 21. She is not on any steroids now. SUBJECTIVE: MEDICATIONS: Current Outpatient Medications Medication Instructions acetaminophen (TYLENOL) 650 mg, Every 6 hours PRN albuterol (ProAir Digihaler) 90 mcg/act breath-activated inhaler (w/ sensor) 2 puffs, Every 4 hoursPRN amoxicillin (Amoxil) 500 MG capsule buPROPion XL (Wellbutrin XL) 300 MG 24 hr tablet TAKE 1 TABLET BY MOUTH EVERY DAY IN THE MORNING FOR 90 DAYS busPIRone (BUSPAR) 5 mg, Oral, 3 times daily PRN cholecalciferol (Vitamin D-3) 50 MCG (2000 UT) tablet Daily famotidine (PEPCID) 20 mg, [...] Allergic 09/26/23 Anemia 01/2017 Anxiety Aortic aneurysm ([facility]) Arthritis Bariatric surgery status Bradycardia Chronic pain disorder 12/27/2022 Circumscribed scleroderma Cough 02/26/2017 Depression ([facility]) Difficulty walking 12/27/2022 DVT (deep venous thrombosis) ([facility]) 1996 R leg Factor V Leiden mutation ([facility]) 1997 GERD (gastroesophageal reflux disease) Heart murmur History of medical problems Biliopancreatic bypass Kidney stones 05/2014 Lichen sclerosus Lung nodule 2016 Lymphopenia Osteopenia Osteoporosis ([facility]CC) 12/27/2022 Other chronic pain 12/27/2022 Panic disorder ([facility]) Plantar wart 12/27/2022 PMB (postmenopausal bleeding) 12/27/2022 Polydipsia 12/27/2022 Secondary hyperparathyroidism ([facility]) Sleep apnea Sleep apnea, obstructive 2014 Vaginal [...] KNEE SURGERY Left 12/31/2018 LUNG BIOPSY 2017 PA CORRECTION HAMMERT[place] PA LIGATION/BIOPSY TEMPORAL ARTERY 2017 biopsy SALIVARY GLAND [...] 2 weeks (around 10/11/2024). documented in this [facility]02-11-2025 History of Present illness Narrative* Gely Snow MD - 09/14/2024 1:30 PM EST Subjective Rebecca Nugent is a 73 y.o. [...] workup was consistent with mild aortic stenosis anddilated aorta. Assessment 1. Mild aortic stenosis 2. [...] lisinopril for vascular protection and she agreed tostart low-dose 2.5 mg daily 5. Will see [...] , Rfl: ergocalciferol (Vitamin D2) 1.25 MG (48569 UT) capsule, Take 1 capsule (1,250 mcg) [...] once daily in the morning., Disp: ,Rfl: lisinopril 2.5 mg tablet, Take 1 tablet [...] exam, discussion and plan. [facility] Work Phone: 1(284) 787-276702-11-2025 Instructions* Patient Instructions* Tati Luque LPN - 09/14/2024 1:30 PM [...] FOLLOW UP WITH EKG documented in this [facility]Av[facility] Work Phone: 1(859) 269-698902-03-2025 Telephone encounter Note* Telephone Encounter - Radha Mckeon MD - 09/06/2024 11:32 AM EST Continue current dose recheck in 4 weeks [facility] [id number] Miscellaneous Notes* Telephone Encounter - Radha Mckeon MD - 09/06/2024 11:32 AM EST Continue current dose recheck in 4 weeks * Telephone Encounter - Miriam Villa MA - 09/06/2024 11:19 AM EST Patient is present for a nurse visit. She takes Warfarin 2mg, 1 tablet daily. INR is 3.1. documented in this encounterFreeman Neosho [id number] Telephone encounter Note* Telephone Encounter - Miriam Villa MA - 09/06/2024 11:19 AM EST Patient is present for a nurse visit. She takes Warfarin 2mg, 1 tablet daily. INR is 3.1. [facility] [id number] History of Present illness Narrative* Miriam Villa MA - 09/06/2024 11:00 AM EST Patient is present for a nurse visit. She takes Warfarin 2mg, 1 tablet daily. INR is 3.1. documented in this encounterFreeman Neosho [id number] Miscellaneous Notes* Telephone Encounter - Mehnaz Farley LPN - 08/06/2024 10:27 AM EST Left message on voicemail to follow up in one year with Dr. Watson in [place]. [employer]pper explained that August is available from 930 am to 330 pm. [facility] Telephone encounter Note* Telephone Encounter - Mehnaz Farley LPN - 08/06/2024 10:27 AM EST Left message on voicemail to follow up in one year with Dr. Watson in [place]. [employer]pper explained that August is available from 930 am to 330 pm. [facility] Evaluation note* Diagnosis Onset Date Resolution Status Admit Date COVID acute August 03, 2024 11:30am Right rotator cuff tear arthropathy acute August 30 9:49am Right shoulder pain acute Janua ry 2024 9:49am Shoulder impingement syndrome acute August 30, 2024 9:49am Strain of right biceps acute [facility] 2024 9:49am [facility] Work Phone: 1(677) 808-891911-23-2024 Telephone encounter Note* Telephone Encounter - Radha Mckeon MD - 06/26/2024 1:51 PM EST Approvals with refills [facility] [id number] Miscellaneous Notes* Telephone Encounter - Radha Mckeon MD - 06/26/2024 1:51 PM EST Approvals with refills documented in this encounterFreeman Neosho [id number] History of Present illness Narrative* Radha Mckeon MD - 05/10/2024 2:20 PM EDT Images from the original note were not included. Rebecca Nugent is a 73 y.o. female presents with chief complaint of Follow-up HPI: HPI Patient is present for a 4 month follow up. Patient states that she has a right shoulder impingement and is scheduled to get an MRI tomorrow at [facility] in [place]. History of Present Illness The patient is a 73-year-old female who presents for evaluation of multiple medical concerns. She reports experiencing significant stress due to her youngest son and his girlfriend living with her, coupled with the recent departure of her other son and his family to [place]. She has been managing her stress through [...] and she is scheduled to see an early childhood specialist tomorrow. The injury has affected her [...] and Friday for ease of recall. Her flooring professional has recommended that she consult with an block hand regarding her protein levels. She has previously seen endocrinologists in [place] and [place], but is now seeking a new provider. [...] a week ergocalciferol (Vitamin D2) 1.25 MG (12423 UT) capsule TAKE 1 CAPSULE BY MOUTH [...] MG tablet Mild persistent asthma without complication (CMS/HCC) Acute pain of right shoulder Other Visit Diagnoses Need for vaccination - Primary Relevant Orders Flu vaccine, high dose seasonal, preservative free (Completed) terminal carman (current) use of anticoagulants Relevant Orders POCT INR manually resulted (Completed) Assessment & Plan 1. Torn biceps muscle. She reported a pop above her elbow while at work, which was diagnosed as a torn biceps muscle by her physician's legal executive assistant. 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 A copy of her flooring professional's note will be requested for further understanding [...] shot during the visit. documented in this encounterFreeman Neosho [id number] History of Present illness Narrative* Gely Snow [...] , Rfl: ergocalciferol (Vitamin D2) 1.25 MG (06812 UT) capsule, Take 1 capsule (1,250 mcg) [...] Scribe Attestation By signing my name below, Lilliana Hall LPN, Scribe attest that this documentation has [...] exam, discussion and plan. [facility] Phone: 1([phone]) 258-743507-11-2024 Instructions* Patient Instructions* Lilliana Dash LPN - [...] Provided instructions on exercise. documented in this [facility] Work Phone: 1(116) 556-299305-08-2024 Hospital Discharge instructions Patient Education 12/10/2023 14:54:55 [...] Follow these instructions at home: Medicines Take vvxy-him-chyzveu and prescription medicines only as told by [...] Kidney Foundation (NKF): www.kidney.org U[facility] Care [facility] (UCF): www.urologyhealth.org Contact a health care provider if: [...] provider. Document Revised: 10/30/2022 Document Reviewed: 10/30/2022 [employer] Patient Education 2022 [employer]. Follow Up Care 12/05/2023 12:52:02 With:SUZY MARTINEZ, Jasper Caicedo, LUPEL Address: [facility] [address] [place] [address]- When: Unknown [facility] 04-29-2024 Hospital Discharge instructions Additional Instructions Please [...] pain returns, as your may require further workup.[facility] Work Phone: [phone]) 591-671102-13-2024 Telephone encounter Note* Telephone Encounter - Sofie Shipley - 09/16/2023 4:58 PM EST Pt would like a callback about her cat scan and her echo, [facility] called her to get them scheduled , she is scheduled for a cat scan, and wonders why [facility] is calling her. [facility] [id number] Miscellaneous Notes* Telephone Encounter - Sofie Shipley - 09/16/2023 4:58 PM EST Pt would like a callback about her cat scan and her echo, [facility] called her to get them scheduled , she is scheduled for a cat scan, and wonders why [facility] is calling her. documented in this encounterFreeman Neosho [id number] Telephone encounter Note* Telephone Encounter - Radha Mckeon MD - 09/15/2023 9:55 AM EST Approvals with refills [facility] [id number] Miscellaneous Notes* Telephone Encounter - Radha Mckeon MD - 09/15/2023 9:55 AM EST Approvals with refills documented in this encounterFreeman Neosho [id number] History of Present illness Narrative* Radha Mckeon [...] Yes Vision Screening: Yes, patient sees regular grid caster/content assistant Hearing Screening: Yes, no gross abnormalities Cognitive [...] need bridge therapy Lymphopenia Other Autoimmune disease (CMS/HCC) Per dr williamson Chronic fatigue Major depressive disorder, single episode, moderate (HCC) (CMS/HCC) stable Other Visit Diagnoses Routine general medical examination at a health care facility - Primary shelter (current) use of anticoagulants Relevant Orders POCT Protime-INR, fingerstick docked device (Completed) Systolic murmur Request last echo from [facility] As of your medicare wellness visit , the medical team reviewed your chart and chronic problems and treatment. Your information regarding healthy diet, activity, immunizations, depression screening, advance directives , activities of daily living medications, cognitive screening and risk factors fordisease were reviewed or addressed documented in this encounterFreeman Neosho [id number] [facility] Evaluation note* Encounter Date Diagnosis Assessment [...] note writ ten by Vic Alexander MA, Gas Tender. Edited and approved by Dr. Venkat Miller MD. [employer] Other 03-30-2023 Evaluation note* Encounter Date Diagnosis [...] note writ ten by Vic Alexander MA, Gas Tender. Edited and approved by Dr. Venkat Miller MD. [employer] Other 02-27-2023 NoteHISTORY: Bone density screening. COMPARISON: [...] and signed by Luisito Jade on 09/30/2022 1114[facility]22 Progress note Author Laina Morales [facility] April 25, 2022 4:18pm Note Date/Time April 25, 2022 2:03pm [facility] at [address] [address] Hem/Onc Follow Up Note - OP Signed Patient: Rebecca Herrera MR#: [id number] : 1950 Acct:[id number] Age/Sex: 71 / F Type: REG RCR [...] vaculitis per second opinion of path at [facility]. 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 Alvares at [facility] in [place], no concerns of malignancy. -Etiology including malabsorption [...] She had bronchoscopy/EBUS biopsy by pulmonology in [place], per patient, nondiagnostic. -[place] to be sarcoidosis, following pulmonology (4) History [...] for coordination of care (as documented) and srwb-fq-ilkz counseling of patient and/or family. Dictated By: Laina Morales APRN DD/ 1357 Signed By: <Electronically signed by ODALYS Morales> 04/25/22 1618 [facility] Work Phone: 1([phone]) 585-439104-18-2022 Evaluation note* Encounter Date Diagnosis Assessment Notes [...] note writ ten by Laura Yao LPN, Gas Tender. Edited and approved by Dr. Venkat Miller MD. [employer] Other 03-21-2022 Evaluation note* Encounter Date Diagnosis [...] patient; patient verbalizes understanding. Patient tolerated well. Additionally,ting nt was provided with home excersies today. We will follow up with patient in four weeks, sooner if needed. Oct, Hip pain (ICD-10 - M25.559) Oct, Chronic pain (ICD-10 - G89.29) Oct, Other Above note writ ten by Laura Yao LPN, Gas Tender. Edited and approved by Dr. Venkat Miller [...] negative findings were considered in medical decision-making. [employer] Other 03-04-2022 Evaluation note* Encounter Date Diagnosis [...] follow up with PCP if new/worsening symptoms. [employer] Other 11-14-2021 Evaluation note* Encounter Date Diagnosis [...] no improvement in 2 to 3 days [employer] Other 09-21-2021 Progress note Author Dilshad Escobedo [facility] April 24, 2021 12:03pm Note Date/Time April 24, 2021 12:02pm [facility] [place] [id number] Hem/Onc Follow Up Note - OP Signed Patient: Rebecca Herrera MR#: [id number] : 1950 Acct:[id number] Age/Sex: 70 / F Type: REG RCR [...] vaculitis per second opinion of path at [facility]. 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 Alvares at [facility] in [place], no concerns of malignancy. -Etiology including malabsorption [...] for coordination of care (as documented) and ajui-uu-ezoj counseling of patient and/or family. Dictated By: Dilshad Escobedo MD DD/ 00 Signed By: <Electronically signed by MD Dilshad Escobedo> 04/24/211202 [facility] Work Phone: 1(321) 570-453609-22-2020 Progress note Author Claudio Alonso [facility] April 25, 2020 9:31am Note Date/Time April 25, 2020 9:29am [facility] [place] [address] Hem/Onc Follow Up Note - OP Signed Patient: Rebecca Herrera MR#: [id number] : 1950 Acct:[id number] Age/Sex: 69 / F Type: REG RCR [...] vaculitis per second opinion of path at [facility]. 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 [...] Q4-6H PRN 05/15/17 [History Confirmed 04/25/20] hydrocodone-acetaminophen [[place]] 1 tab PO Q4-6H PRN 05/15/17 [History [...] Neut % (Auto) 62.4,Lymph % (Auto) 16.8, [place] % (Auto) 13.8, Eos % (Auto) 6.1, Baso % (Auto) 0.9, Neut # (Auto) 2.6, Lymph # (Auto) 0.7 L, [place] # (Auto) 0.6, Eos # (Auto) 0.3, Baso # (Auto) 0.0, Nucleated RBC % (auto) 0.1 Assessment and Plan (1) Iron deficiency anemia Qualifiers: Iron deficiency anemia type: chronic blood loss Qualified Code(s): D50.0 - Iron deficiency anemia secondary to blood loss (chronic) Iron deficiency anemia, in the setting of gastric bypass and chronic anticoagulation; repeat EGD/colonoscopy on 02/16/[address] Alvares at [facility] in [place], no concerns of malignancy. -Etiology including malabsorption [...] She had bronchoscopy/EBUS biopsy by pulmonology in [place], per patient, nondiagnostic. -[place] to be sarcoidosis, following pulmonology (4) History [...] for coordination of care (as documented) and bqpd-qg-yqdo counseling of patient and/or family. Dictated By: Claudio Alonso MD DD/ 8 Signed By: <Electronically signed by Claudio Alonso MD> 04/25/20930 [facility] Work Phone: 1([phone]) [phone] Progress note Author Claudio Alonso [facility] April 13, 2019 10:24am Note Date/Time April 13, 2019 10:21am [facility] [place] [address] Hem/Onc Follow Up Note - OP Signed Patient: Rebecca Chandler MR#: [id number] : 1950 Acct:[id number] Age/Sex: 68 / F Type: REG RCR [...] vaculitis per second opinion of path at [facility]. 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 [...] Q4-6H PRN 05/15/17 [History Confirmed 04/13/19] hydrocodone-acetaminophen [[place]] 1 tab PO Q4-6H PRN 05/15/17 [History [...] % (Auto) 66.9, Lymph % (Auto) 14.5, [place] % (Auto) 12.3, Eos % (Auto) 5.9, Baso % (Auto) 0.4, Neut # (Auto) 2.6, Lymph # (Auto) 0.6 L, [place] # (Auto) 0.5, Eos # (Auto) 0.2, Baso # (Auto) 0.0, Nucleated RBC % (auto) 0.2 Assessment and Plan (1) Iron deficiency anemia Qualifiers: Iron deficiency anemia type: chronic blood loss Qualified Code(s): D50.0 - Iron deficiency anemia secondary to blood loss (chronic) Iron deficiency anemia, in the setting of gastric bypass and chronic anticoagulation; repeat EGD/colonoscopy on 02/16/[address] Alvares at [facility], no concerns of malignancy. -Etiology including malabsorption [...] Factor V Leiden heterozygosity. -She has a [place] filter in place is no planned to retrieve. On chronic anticoagulation with Coumadin, planning to switch to Xarelto vs Eliquis. (3) Mediastinal lymphadenopathy She had bronchoscopy/EBUS biopsy by pulmonology in [place], per patient, nondiagnostic. -[place] to be sarcoidosis, following pulmonology (4) History of deep venous thrombosis (DVT) of distal vein of right lower extremity History of right lower extremity DVT 1996, likely unprovoked, associated with Estrogen use. She has Factor V Leiden heterozygosity. -She has a [place] filter in place is no planned to retrieve. She is on Xarelto 10mg daily. Low complexity encounter, time spent 15 min. - Time with Patient Coordination of Care & Counseling Time: Greater than 50% of time spent with patient was for coordination of care (as documented) and vvvh-dv-lkot counseling of patient and/or family. Dictated By: Claudio Alonso MD DD/ 1020 Signed By: <Electronically signed by Claudio Alonso MD> 04/13/19 1024 [facility] Work Phone: [phone] Progress note Author Claudio Alonso [facility] December 30, 2018 9:10am Note Date/Time December 30, 2018 9:04a m [facility] [place] [address] Hem/Onc Follow Up Note - OP Signed Patient: Rebecca Chandler MR#: [id number] : 1950 Acct:[id number] Age/Sex: 68 / F Type: REG RCR [...] colonoscopy on 02/16/[address] Alvares at [facility] in [place]. EGD findings were consistent with erosive gastritis, [...] 11/08/16 (evaluating cough);bronchoscopy/EBUS biopsy by pulmonology in [place], per patient, nondiagnostic, following pulmonology. She was [...] vaculitis per second opinion of path at [facility]. 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 Alvares at [facility] in [place], no concerns of malignancy. -Etiology including malabsorption [...] She had bronchoscopy/EBUS biopsy by pulmonology in [place], per patient, nondiagnostic. -[place] to be sarcoidosis, following pulmonology (4) History of deep venous thrombosis (DVT) of distal vein of right lower extremity - Time with Patient Coordination of Care & Counseling Time: Greater than 50% of time spent with patient was for coordination of care (as documented) and ggxd-vn-ubxs counseling of patient and/or family. Dictated By: Claudio Alonso MD DD/ Signed By: <Electronically signed by Claudio Alonso MD> 12/30/1810 [facility] Work Phone: [phone]) [phone] Progress note Author Laina Morales [facility] July 01, 2018 9:55am Note Date/Time July 01, 2018 9:43am [facility] [place] [address] Hem/Onc Follow Up Note - OP Signed Patient: Rebecca Chandler MR#: [id number] : 1950 Acct:[id number] Age/Sex: 67 / F Type: REG RCR Copies to: Irma Dupont MD~ Subjective Date/Time of Service: Date of Service: 07/01/2018 Time of Service: 09:41 Chief Complaint: Patient is here for a six month follow up appointment to reviewlab results for anemia. Patient had colonoscopy in February at [facility]. Noconcerns noted at this time. - Diagnosis [...] vaculitis per second opinion of path at [facility]. 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 -S/P IV iron, Feraheme [id number] in January 2018. Tolerated well in the past, no concern of infusion reactions. -Had repeat colonoscopy on 02/16/[address] Alvares at [facility] in [place]. EGD findings were consistent with erosive gastritis, [...] She had bronchoscopy/EBUS biopsy by pulmonology in [place], per patient, nondiagnostic. -I discussed with her [...] for coordination of care (as documented) and nomi-lh-vfcl counseling of patient and/or family. Dictated By: Laina Morales DD/ 0941 Signed By: <Electronically signed by Laina Morales> 07/01/18 0955 [facility] Work Phone: 1([phone]) [phone] Progress note Author Claudio Alonso [facility] December 23, 2017 5:43pm Note Date/Time December 23, 2017 5:34p m [facility] [place] [address] Hem/Onc Follow Up Note - OP Signed Patient: Rebecca Nugent MR#: [id number] : 1950 Acct:[id number] Age/Sex: 67 / F Type: REG RCR [...] Factor V Leiden heterozygosity. -She has a [place] filter in place is no planned to retrieve. On chronic anticoagulation with Coumadin, planning to switch to Xarelto vs Eliquis. PAST MEDICAL HISTORY: Clinical diagnosis of sarcoidosis; Morbid obesity status post gastric bypass in 2000; Chronic arthritis; Sleep apnea on CPAP at night; Panic disorder. 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 -Will give IV iron, Feraheme [id number]. She tolerated well in the past, no [...] She had bronchoscopy/EBUS biopsy by pulmonology in [place], per patient, nondiagnostic. -I discussed with her [...] for coordination of care (as documented) and ftoh-sn-hmie counseling of patient and/or family. 25 - 35 minutes Dictated By: Claudio Alosno MD DD/ 32 Signed By: <Electronically signed by Claudio Alonso MD> 12/23/171742 [facility] Work Phone: [phone]) [phone] Progress note Author Claudio Alonso [facility] June 24, 2017 12:23pm Note Date/Time June 24, 2017 10:42am [facility] [place] [address] Hem/Onc Follow Up Note - OP Signed Patient: Rebecca Nugent MR#: [id number] : 1950 Acct:[id number] Age/Sex: 66 / F Type: REG RCR Copies to: Santana Williamson MD, Juan R Hill MD, MD~ Subjective Date/Time of Service: Date of [...] granulomatous vaculitis per second opinionof path at [facility]. 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 Never smoker. HPI: Mrs. Nugent returns for a scheduled follow up. She is on 5 mg Prednisone, doingwell. She denies fever, chills, or lymphadenopathy. She feels administrative executive the night 3-4 times per week. She [...] INHALATION Q4-6H PRN 05/15/17 05/15/17 History hydrocodone-acetaminophen [[place]] 1 tab PO Q4-6H PRN 05/15/17 05/15/17 [...] She had bronchoscopy/EBUS biopsy by pulmonology in [place], per patient, nondiagnostic, will get path report. [...] vaculitis per second opinion of path at [facility]. (3) History of deep venous thrombosis [...] for coordination of care (as documented) and kjfx-uf-osor counseling of patient and/or family. 25 - 35 minutes Dictated By: Claudio Alonso MD DD/ 1041 Signed By: <Electronically signed by Claudio Alonso MD> 06/24/17 1223 [facility] Work Phone: Evaluation + Plan note No data available for this section [facility] Evaluation noteNo InformationNort [employer] Other Evaluation noteNo assessment information available [facility] Work Phone: Evaluation note* Diagnosis Onset Date Resolution Status History of deep venous throm bosis (DVT) of distal vein of right lower extremity chronic Iron deficiency anemia chron ic Lymphopenia chronic Mediastinal lymphadenopathy chronic [facility] Work Phone: Evaluation note* Diagnosis Routine general medical examination at a health care facility- Primary terminal carman (current) use of anticoagulants Long-term (current) use [...] health care facility documented in this encounter [facility] HealthcareEvaluation note* Diagnosis Gastro-esophageal reflux disease without esophagitis documented in this encounter [facility] HealthcareEvaluation note* Diagnosis Onset Date Resolution Status Shoulder impingement syndrome acute [facility] Work Phone: Evaluation note* Diagnosis Onset Date Resolution Status Shoulder impingement syndrome acute Rotator cuff tendonitis none active Shoulder impingement syndrome acute Strain of right biceps acute Strain of right deltoid muscle acute Rotator cuff tendonitis none active [facility] Work Phone: Evaluation note* Diagnosis Onset Date [...] muscle acute Rotator cuff tendonitis none active [facility] Work Phone: Evaluation note* Diagnosis Onset Date [...] chron ic Lymphopenia chronic Mediastinal lymphadenopathy chronic [facility] Work Phone: Evaluation note* Diagnosis Need for vaccination- Primary Need for prophylactic vaccination and inoculation against unspecified single disease shelter (current) use of anticoagulants Long-term (current) use [...] without complication (CMS/HCC) documented in this encounter [facility] HealthcareEvaluation note* Diagnosis Onset Date Resolution Status [...] chron ic Lymphopenia chronic Mediastinal lymphadenopathy chronic [facility] Work Phone: Evaluation note* Diagnosis Onset [...] syndrome acute Strain of right biceps acute [facility] Work Phone: Evaluation note* Diagnosis Factor 5 Leiden mutation, heterozygous (CMS/HCC) documented in this encounter [facility] HealthcareEvaluation note* Diagnosis Panic disorder (CMS/HCC) Panic disorder without agoraphobia Moderate episode of recurrent major depressive disorder (CMS/HCC) documented in this encounter [facility] HealthcareEvaluation note* Diagnosis Nonrheumatic aortic valve stenosis- Primary Dilated aortic root (CMS-HCC) Thoracic aneurysm without mention of rupture History of DVT of lower extremity BMI 27.0-27.9,adult Anticoagulated Encounter for long-term (current) use of anticoagulants documented in this encounter [facility] Work Phone: Evaluation note* Diagnosis Panic disorder (CMS/HCC) Panic disorder without agoraphobia Moderate episode of recurrent major depressive disorder (HCC) (CMS/HCC) documented in this encounter [facility] HealthcareEvaluation note* Diagnosis Panic disorder (CMS/HCC) Panic disorder without agoraphobia Moderate episode of recurrent major depressive disorder (CMS/HCC) documented in this encounter [facility] HealthcareEvaluation note* Diagnosis Dilated aortic root (CMS-HCC)- Primary Thoracic aneurysm without mention of rupture Nonrheumatic aortic valve stenosis History of DVT of lower extremity Factor V Leiden (Multi) Primary hypercoagulable state Anticoagulated Encounter for long-term (current) use of anticoagulants BMI 27.0-27.9,adult documented in this encounter [facility] Work Phone: Evaluation note* Diagnosis terminal carman (current) use of anticoagulants- Primary Long-term (current) use of anticoagulants documented in this encounter [facility] HealthcareEvaluation note* Diagnosis Tertiary hyperparathyroidism (CMS/HCC)- Primary Other hyperparathyroidism Kidney stone Calculus of kidney H/O gastric bypass Age-related osteoporosis without current pathological fracture (CMS/HCC) documented in this encounter [facility] HealthcareEvaluation note* Diagnosis Routine general medical examination at a health care facility- Primary shelter (current) use of anticoagulants Long-term (current) use [...] aortic valve stenosis documented in this encounter [facility] HealthcareEvaluation note* Diagnosis Tertiary hyperparathyroidism (CMS/HCC)- Primary Other hyperparathyroidism H/O gastric bypass Kidney stone Calculus of kidney Age-related osteoporosis without current pathological fracture ([facility]) documented in this encounter [facility] HealthcareEvaluation note* Diagnosis Encounter for gynecological examination without abnormal finding- Primary Encounter for screening mammogram for malignant neoplasm of breast Osteoporosis, post-menopausal (CMS/[facility]) Senile osteoporosis Encounter for screening for cervical cancer Alopecia documented in this encounter [facility] HealthcareEvaluation note* Diagnosis Panic disorder ([facility]/HCC) Panic disorder without agoraphobia Moderate episode of recurrent major depressive disorder ([facility]) documented in this encounter [facility] HealthcareEvaluation note* Diagnosis shelter (current) use of anticoagulants Long-term (current) use of anticoagulants documented in this encounter [facility] HealthcareEvaluation note* Diagnosis Acute vulvitis- Primary Unspecified vaginitis and vulvovaginitis documented in this encounter [facility] HealthcareEvaluation note* Diagnosis Onset Date Resolution Status Admit Date Right rotator cuff tear arthropathy acute January 03, 2025 8 :09am Right shoulder pain acute January 03, 2025 8:09am Shoulder impingement syndrome acute January 03, 2025 8:09am Strain of right biceps acute Ju 2024 8:09am [facility] Work Phone: History and physical note Author Michael Ramirez [facility] June 10, 2023 11:21am Note Date/Time June 10, 2023 1 1:21am [facility] [address] [place] [address] Gastroenterology H&P Signed Patient: Rebecca Herrera MR#: [id number] : 1950 Acct:[id number] Age/Sex: 72 / F Adm Date: 3 Loc: Room: Type: [facility] Attending Dr: Michael Ramirez MD Copies [...] signed by Michael Ramirez MD> 06/10/23 1121 [facility] Work Phone: History general Narrative - [...] D&C 08/2016 Surgical History knee replacement 12/2018 [employer] Other Hospital Discharge instructions Additional Instructions DISCHARGE [...] NOT operate machinery such as power tools, [employer]os, LX Enterpriseswers, Spinelabing machines, etc. for 24 hours. - Avoid [...] you have any problems. - Office number [phone]. [facility] Work Phone: Hospital Discharge instructions Additional Instructions Take an extra dose of your warfarin today. Follow-up with your primary care physician within the next few days for recheck of her INR. You may need an adjustment in the dose and/or frequency of the warfarin. Follow-up with your family doctor for monitoring of your thoracic aortic aneurysm. Return here for any worsening or recurrent symptoms.[facility] Work Phone: Hospital Discharge instructionsAmbulatory Orders* MR smith RT wo con Time Frame: 04/23/24, Location: Determined By Patient [facility] Work Phone: InstructionsNot on filedocumented in this encounter [email or web address] System[employer] note Author Robert Ledezma [facility] April 22, 2023 9:36am Note Date/Time April 22, 2023 9:18am [facility] at [address] [address] Hem/Onc Follow Up Note - OP Signed Patient: Rebecca Herrera MR#: [id number] : 1950 Acct:[id number] Age/Sex: 72 / F Type: REG RCR Copies to: Radha Mckeon MD~ Date of Service: 04/22/2023 Time of Service: 09:17 - Assessment & Plan (1) Iron deficiency anemia Plan: Iron deficiency anemia, in the setting of gastric bypass and chronic anticoagulation; repeat EGD/colonoscopy on 02/16/[address] Alvares at [facility] in [place], no concerns of malignancy. She does not [...] She had bronchoscopy/EBUS biopsy by pulmonology in [place], per patient, nondiagnostic. -[place] to be sarcoidosis, following pulmonology History of deep venous thrombosis (DVT) of distal vein of right lower extremity History of right lower extremity DVT 1996, likely unprovoked, associated with Estrogen use. She has Factor V Leiden heterozygosity. -She has a [place] filter in place is no planned to [...] in [address] Alvares in [place]. cbc,. cmp iron studies, vitamins adek, b1, b6, b12, folate, mma, zinc selenium. in 6 months. cbc, cmp, iron studies prior to f/u in a year cont mvi. Will offer her IV iron venofer 300mg IV x 3 doses. reclast in 2 months. - History of Present Illness Chief Complaint: Patient is here for a one year follow up [facility] labs for review. No concerns voiced at [...] vaculitis per second opinion of path at [facility]. 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 Never smoker. 04/22/23 she is doing well overall. no black or bloody stools. feelign well overall. She is not anemic hb 12.6. Iron sat and ferritin very low. follows with dr holt for unnamed autoimmune history. does not tolerate [...] for coordination of care (as documented) and [id number] counseling of patient and/or family. Additional Data [...] by Robert Ledezma II, DO> 04/22/23 0936 [facility] Work Phone: Progress note No data available for this section [facility] Jeannie Summary Purpose Family History Relationship Condition Age [...] Documents on File Type Date Recorded Patient Glost Tile Shader Expl anation Advance Directives and Living Will 09/18/2023 10:00 AM [facility] POA & Living Will Chief Complaint and [...] M25.511 - Pain in right shoulder OP PRICER BAGGER RT SHOULDER PAIN NX Reason for Visit Shoulder impingement syndrome Chief Complaint M25.511 - Pain in ri ght shoulder OP PRICER BAGGER RT SHOULDER PAIN NX OP SP INCREASED RT SHOULDER PAIN Reason for Visit Shoulder impingement syndrome Rotator cuff tendonitis Shoulder impingement syndrome Strain of right biceps Strain of right deltoid muscle Rotator cuff tendonitis Chief Complaint M25.511 - Pain in ri ght shoulder OP PRICER BAGGER RT SHOULDER PAIN NX OP SP INCREASED [...] - Pain in ri ght shoulder OP PRICER BAGGER RT SHOULDER PAIN NX OP SP INCREASED [...] - Pain in ri ght shoulder OP PRICER BAGGER RT SHOULDER PAIN NX OP SP INCREASED [...] - Pain in ri ght shoulder OP PRICER BAGGER RT SHOULDER PAIN NX OP SP INCREASED [...] - Pain in ri ght shoulder OP PRICER BAGGER RT SHOULDER PAIN NX OP SP INCREASED [...] Right rotator cuff tear arthropathy Fabian celestino 2024 9:49am Right shoulder pain August 30, 2024 9 :49am Shoulder impingement syndrome August 302024 9:49am Strain of right biceps August 30 9:49am Chief Complaint Admit Date cough, chest congestion(in car) August 03, 2024 11:30am OP SP RT SHOULDER PAIN August 30 9:49am M35.9 September 27, 2024 12:36pm Chief Complaint Admit Date cough, chest congestion(in car) August 03, 2024 11:30am OP SP RT SHOULDER PAIN August 30 9:49am M35.9 September 27, 2024 12:36pm Ureteral stone October 11, 2024 2:2 2pm Chief Complaint Admit Date M35.9 September 27, 2024 12:36pm Ureteral stone October 11, 2024 2:2 2pm Z12.31 December 10, 2024 10:09a m Chief Complaint Admit Date Ureteral stone October 11, 2024 2:2 2pm Z12.31 December 10, 2024 10:09a m OP SP RT SHOULDER PAIN January 03, 2025 8: 09am M25.561 - Pain in right knee January 03 8:14am Reason for Visit Admit Date Right rotator cuff tear arthropathy January 03, 2025 8:09am Right shoulder pain January 03, 2025 8:09a m Shoulder impingement syndrome January 03, 2025 8:09am Strain of right biceps January 03, 2025 8: 09am Reason for Referral Specialty Diagnoses / Procedures Referred By Contac t Referred To Contact Diagnoses Nonrheumatic aortic valve stenosis Procedures ECG 12 Lead Gely Snow MD [address] [facility] 2, Ranjeet [address] [place] [address] Referral ID Status Reason Start Date Expiration Date V isits Requested Visits Authorized [id number] Authorized 02/12/2024 02/11/2025 1 1 Specialty Diagnoses / Procedures Referred By Contac t Referred To Contact Cardiology Diagnoses Nonrheumatic aortic valve stenosis Procedures Follow Up In Cardiology Gely Snow MD [address] [facility] 2, [address] [address] Gely Snow MD [address] [facility] 2, [address] [address] Referral ID Status Reason Start Date Expiration Date V isits Requested Visits Authorized [id number] Authorized 02/12/2024 02/11/2025 1 1 Specialty Diagnoses / Procedures Referred By Contac t Referred To Contact Radiology Diagnoses Ascending aortic aneurysm, unspecified whether ruptured (CMS/HCC) Procedures CT chest w IV contrast Radha Mckeon MD [address] [facility] [place] [address] Referral ID Status Reason Start Date Expiration Date V isits Requested Visits Authorized [id number] Pending Review 09/09/2023 03/07/2024 1 1 Additional Source Comments INFORMATION SOURCE (unrecogn ized section and content) DATE CREATED AUTHOR 07/14/2018 [facility] DATE CREATED AUTHOR AUTHOR'S ORGANIZ ATION 03/24/2019 [facility] DATE CREATED AUTHOR AUTHOR'S ORGANIZ ATION 12/15/2019 [facility] DATE CREATED AUTHOR AUTHOR'S ORGANIZ ATION 09/30/[address] [facility] dical Specialist DATE CREATED AUTHOR AUTHOR'S ORGANIZ ATION 06/01/2024 [facility] DATE CREATED AUTHOR AUTHOR'S ORGANIZ ATION 08/13/2024 [facility] DATE CREATED AUTHOR AUTHOR'S ORGANIZ ATION 09/16/2024 [facility] tals Ambulatory DATE CREATED AUTHOR AUTHOR'S ORGANIZ ATION 10/05/2024 [facility] Center DATE CREATED AUTHOR AUTHOR'S ORGANIZ ATION 11/22/[address] [facility] dical Specialists EPIC DATE CREATED AUTHOR AUTHOR'S ORGANIZ ATION 01/04/2025 [facility] REASON FOR VISIT (unrecogniz ed section and content) Reason Comments counseling session Specialty Diagnoses / Procedures Referred By Contac t Referred To Contact Behavioral Health Diagnoses Panic disorder (episodic paroxysmal anxiety) Procedures PA PSYCHIATRIC DIAGNOSTIC EVALUATION PA PSYCHOTHERAPY W/PATIENT 60 MINUTES PA PSYCHOTHERAPY W/PATIENT 45 MINUTES PA PSYCHOTHERAPY W/PATIENT 30 MINUTES Sadaf Calhoun LISW-S [address] [place] [address] Phone: tel: fax: Sadaf Calhoun LISW-S [address] [place] [address] Phone: tel: fax: Referral ID Status Reason Start Date Expiration Date V isits Requested Visits Authorized [id number] Closed Consult and Treat 09/06/2024 03/05/2025 99 99 Reason Comments Medicare Annual Wellness Visit Subsequen t Reason Comments Med Refill Reason Comments NEW PATIENT ASSESSMENT Reason Comments Follow-up Reason Comments Establish Care Ref.dr. montoya Pre-op Clearance Kidney stone Specialty Diagnoses / Procedures Referred By Contac t Referred To Contact Diagnoses Nonrheumatic aortic valve stenosis Procedures ECG 12 Lead Gely Snow MD [address] [facility] 2, [address] [address] Referral ID Status Reason Start Date Expiration Date V isits Requested Visits Authorized [id number] Authorized 02/12/2024 02/11/2025 1 1 Reason Comments Follow-up 6m Specialty Diagnoses / Procedures Referred By Contac t Referred To Contact Cardiology Diagnoses Nonrheumatic aortic valve stenosis Procedures Follow Up In Cardiology Gely Snow MD [address] [facility] 2, [address] [address] Phone: tel: fax: Gely Snow MD [address] [facility] 2, [address] [address] Phone: tel: fax: Referral ID Status Reason Start Date Expiration Date V isits Requested Visits Authorized [id number] Pending Review 02/12/2024 02/11/2025 1 1 Reason Comments Thyroid Problem Follow-up 1.5 YRS 09/2023 [facility] Specialty Diagnoses / Procedures Referred By Contac t Referred To Contact Behavioral Health Diagnoses Panic disorder (episodic paroxysmal anxiety) (CMS/HCC) Procedures PA PSYCHIATRIC DIAGNOSTIC EVALUATION PA PSYCHOTHERAPY W/PATIENT 60 MINUTES PA PSYCHOTHERAPY W/PATIENT 45 MINUTES PA PSYCHOTHERAPY W/PATIENT 30 MINUTES Sadaf Calhoun LISW-S [address] [place] [address] Phone: tel: fax: Sadaf Calhoun LISW-S [address] [place] [address] Phone: tel: fax: Referral ID Status Reason Start Date Expiration Date V isits Requested Visits Authorized [id number] Closed Consult and Treat 09/06/2024 03/05/2025 99 99 Reason Comments Medicare Annual Wellness Visit Subsequen t Specialty Diagnoses / Procedures Referred By Contac t Referred To Contact Behavioral Health Diagnoses Panic disorder (episodic paroxysmal anxiety) (CMS/HCC) Procedures PA PSYCHIATRIC DIAGNOSTIC EVALUATION PA PSYCHOTHERAPY W/PATIENT 60 MINUTES PA PSYCHOTHERAPY W/PATIENT 45 MINUTES PA PSYCHOTHERAPY W/PATIENT 30 MINUTES Sadaf Calhoun LISW-S [address] [place] [address] Phone: tel: fax: Sadaf Calhoun 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 [address] [place] [address] Phone: tel: fax: Reason Comments Follow-up [facility] Reason Comments Gynecologic Exam Reason Onset Date Comments Med Refill 2024 Goals (unrecognized section and content) Goals may be documented in a n alternate section Care Teams (unrecognized sec tion and content) Team Status: Active Member Role Status Lin Mckeon MD Primary Care Provider Active Team Status: Inactive Member Role Status Lin Mckeon MD Primary Care Provider Active Sta rt: September 16, 2023 End: September 16, 2023 Neto Burton DO Attending Provider Active S tart: September 16, 2023 End: September 16, 2023 Team Status: Active Member Role Status Lin Blancas APRN Attending Provider Actavelino Mckeon MD Primary Care Provider Active Team Status: Inactive Member Role Status Lin Mckeon MD Primary Care Provider Active Venkat Miller MD Attending Provider Active Team Status: Inactive Member Role Status Lin Mckeon MD Primary Care Provider Active Laina Morales APRN Attending Provider Active Team Status: Inactive Member Role Status Lin Mckeon MD Primary Care Provider Active Tyrese Swanson MD Attending Provider Active Team Status: Inactive Member Role Status Lin Mckeon MD Primary Care Provider Active Patricio Cifuentes MD Attending Provider Active Team Status: Active Member Role Status Lin Mckeon MD Primary Care Provider Active Robert Ledezma II, DO Attending Provider Active Team Status: Inactive Member Role Status Lin Mckeon MD Primary Care Provider Active Michael Ramirez MD Attending Provider Active Television Script Writer Relationship Specialty Start Date End Radha Greenberg MD [address] [facility] [place] [address] PCP - General Family Medicine 12/27/22 Pippa Archer NP [address] [place] [address] Nurse Practitioner Family Medicine 12/27/22 Television Script Writer Relationship Specialty Start Date End Date Radha Mckeon MD [address] [place] [address] PCP - General Family Medicine 12/27/22 Pippa Archer NP [address] [place] [address] Nurse Practitioner Family Medicine 12/27/22 Television Script Writer Relationship Specialty Start Date End Date Radha Mckeon MD [address] [place] [address] PCP - General Family Medicine 12/27/22 Pippa Archer NP [address] [place] [address] Nurse Practitioner Family Medicine 12/27/22 Television Script Writer Relationship Specialty Start Date End Date Radha Mckeon MD [address] [facility] [place] [address] PCP - General Family Medicine 12/27/22 Pippa Archer NP [address] [place] [address] [place] [address] Nurse Practitioner Family Medicine 12/27/22 Television Script Writer Relationship Specialty Start Date End Date Radha Mckeon MD [address] [facility] [place] [address] PCP - General Family Medicine 12/27/22 Pippa Archer NP [address] [facility] [place] [address] Nurse Practitioner Family Medicine 12/27/22 Team Status: Inactive Member Role Status Lin Mckeon MD Primary Care Provide r, Attending Provider Active Start: September 23, 2023 End: September 23, 2023 Team Status: Inactive Member Role Status Lin Mckeon MD Primary Care Provider Active Sta rt: September 29, 2023 End: September 29, 2023 Neto Burton DO Attending Provider Active S tart: September [...] November 28, 2023 End: November 29, 2023 Agusítn Lin DO Emergency Provider Active Start: November 28, [...] Sta rt: February 27, 2024 Mau Blackman , Attending Provider Active S tart: February 27, [...] April 23, 2024 End: April 23, 2024 Helena Liao NP-C Attending Provider Active Start: April 23, 2024 [...] April 26, 2024 End: April 26, 2024 Television Script Writer Relationship Specialty Start Date End Date Radha Mckeon MD [address] [facility] [place] [address] PCP - General Family Medicine 12/27/22 Radha Mckeon MD [address] [facility] [place] [address] PCP - ACO Reach 10/03/23 Pippa Archer NP [address] [facility] [place] [address] Nurse Practitioner Family Medicine 12/27/22 Ghislaine Lawson, RN [address] [place] [address] Registered Nurse Family Medicine 12/09/23 Television Script Writer Relationship Specialty Start Date End Date Radha Mckeon MD [address] [facility] [place] [address] PCP - General Family Medicine 12/27/22 Radha Mckeon MD [address] [facility] [place] [address] PCP - ACO Reach 10/03/23 Pippa Archer, PRICER BAGGER [address] [facility] [place] [address] Nurse Practitioner Family Medicine 12/27/22 Ghislaine Lawson, NIKOS [address] [facility] [place] [address] Registered Nurse Family Medicine 12/09/23 Team Status: Inactive Member Role Status Dates Radha Mckeon MD Primary Care Provider Active Sta rt: May 11, 2024 End: May 11, 2024 ALEXANDRA AmatoC Attending Provider Active Start: May 11, 2024 End: May 11, 2024 Team Status: Inactive Member Role Status Dates Radha Mckeon MD Primary Care Provider Active Sta rt: May 17, 2024 End: May 17, 2024 Mau Blackman DO Attending Provider Active S tart: May 17, 2024 End: May 17, 2024 Television Script Writer Relationship Specialty Start Date End Date Radha Mckeon MD [address] [facility] [place] [address] PCP - General Family Medicine 12/27/22 Radha Mckeon MD [address] [facility] [place] [address] PCP - ACO Reach 10/03/23 Pippa Archer PRICER BAGGER [address] [facility] [place] [address] Nurse Practitioner Family Medicine 12/27/22 Ghislaine Lawson RN [address] [place] [address] Registered Nurse Family Medicine 12/09/23 Television Script Writer Relationship Specialty Start Date End Date Radha Mckeon MD [address] [place] [address] PCP - General Family Medicine 12/27/22 Radha Mckeon MD [address] [place] [address] PCP - ACO Reach 10/03/23 Pippa Archer, PRICER BAGGER [address] [place] [address] Nurse Practitioner Family Medicine 12/27/22 Ghislaine Lawson RN [address] [place] [address] Registered Nurse Family Medicine 12/09/23 Television Script Writer Relationship Specialty Start Date End Date Radha Mckeon MD [address] [place] [address] PCP - General Family Medicine 12/27/22 Radha Mckeon MD [address] [place] [address] PCP - ACO Reach 10/03/23 Pippa Archer, PRICER BAGGER [address] [place] [address] Nurse Practitioner Family Medicine 12/27/22 Ghislaine Lawson RN [address] [place] [address] Registered Nurse Family Medicine 12/09/23 Television Script Writer Relationship Specialty Start Date End Date Radha Mckeon MD [address] [place] [address] PCP - General Family Medicine 12/27/22 Radha Mckeon MD [address] [facility] [place] [address] PCP - ACO Reach 10/03/23 Pippa Archer NP [address] [place] [address] Nurse Practitioner Family Medicine 12/27/22 Ghislaine Lawson, RN [address] [place] [address] Registered Nurse Family Medicine 12/09/23 Television Script Writer Relationship Specialty Start Date End Date Radha Mckeon MD [address] [facility] [place] [address] PCP - General Family Medicine 12/27/22 Radha Mckeon MD [address] [facility] [place] [address] PCP - ACO Reach 10/03/23 Pippa Archer NP [address] [facility] [place] [address] Nurse Practitioner Family Medicine 12/27/22 Ghislaine Lawson, RN [address] [facility] [address] [place] [place] [address] Registered Nurse Family Medicine 12/09/23 Television Script Writer Relationship Specialty Start Date End Date Radha Mckeon MD [address] [place] [address] PCP - General Family Medicine 02/12/24 Television Script Writer Relationship Specialty Start Date End Date Radha [...] August 30, 2024 End: August 30, 2024 Television Script Writer Relationship Specialty Start Date End Date Radha Mckeon MD [address] [facility] [place] [address] PCP - General Family Medicine 12/27/22 Radha Mckeon MD [address] [facility] [place] [address] PCP - ACO Reach 10/03/23 Radha Mckeon MD [address] [facility] [place] [address] PCP - Devoted 08/04/24 Pippa Archer NP [address] [facility] [place] [address] Nurse Practitioner Family Medicine 12/27/22 Ghislaine Lawson, NIKOS [address] [facility] [place] [address] Registered Nurse Family Medicine 12/09/23 Television Script Writer Relationship Specialty Start Date End Date Radha Mckeon MD [address] [facility] [place] [address] PCP - General Family Medicine 12/27/22 Radha Mckeon MD [address] [place] [address] PCP - ACO Reach 10/03/23 Radha Mckeon MD [address] [place] [address] PCP - Devoted 08/04/24 Pippa Archer PRICER BAGGER [address] [place] [address] Nurse Practitioner Family Medicine 12/27/22 Ghislaine Lawson, NIKOS [address] [place] [address] Registered Nurse Family Medicine 12/09/23 Television Script Writer Relationship Specialty Start Date End Date Radha Mckeon MD [address] [place] [address] PCP - General Family Medicine 12/27/22 Radha Mckeon MD [address] [place] [address] PCP - ACO Reach 10/03/23 Radha Mckeon MD [address] [place] [address] PCP - Devoted 08/04/24 Pippa Archer, PRICER BAGGER [address] [place] [address] Nurse Practitioner Family Medicine 12/27/22 Ghislaine Lawson, RN [address] [place] [address] Registered Nurse Family Medicine 12/09/23 Television Script Writer Relationship Specialty Start Date End Date Radha Mckeon MD [address] [address] PCP - General Family Medicine 02/12/24 Television Script Writer Relationship Specialty Start Date End Date Radha Mckeon MD [address] [facility] [place] [address] PCP - General Family Medicine 12/27/22 Radha Mckeon MD [address] [facility] [place] [address] PCP - ACO Reach 10/03/23 09/09/24 Radha Mckeon MD [address] [facility] [place] [address] PCP - Devoted 08/04/24 Pippa Archer NP [address] [facility] [place] [address] Nurse Practitioner Family Medicine 12/27/22 Ghislaine Lawson, RN [address] [place] [address] Registered Nurse Family Medicine 12/09/23 Television Script Writer Relationship Specialty Start Date End Date Radha Mckeon MD [address] [facility] [place] [address] PCP - General Family Medicine 12/27/22 Radha Mckeon MD [address] [facility] [place] [address] PCP - Devoted 08/04/24 Radha Mckeon MD [address] [facility] [place] [address] PCP - ACO Reach 09/17/24 Pippa Archer NP [address] [place] [address] Nurse Practitioner Family Medicine 12/27/22 Ghislaine Lawson, RN [address] [place] [address] Registered Nurse Family Medicine 12/09/23 Television Script Writer Relationship Specialty Start Date End Date Radha Mckeon MD [address] [place] [address] PCP - General Family Medicine 12/27/22 Radha Mckeon MD [address] [place] [address] PCP - Devoted 08/04/24 Radha Mckeon MD [address] [facility] [place] [address] PCP - ACO Reach 09/17/24 Pippa Archer PRICER BAGGER [address] [place] [address] Nurse Practitioner Family Medicine 12/27/22 Ghislaine Lawson, RN [address] [facility] [address] [place] [address] Registered Nurse Family Medicine 12/09/23 Team Status: Inactive Member Role Status Dates Radha Mckeon MD Primary Care Provider Active Sta rt: September 27, 2024 End: September 27, 2024 Santana Williamson MD Attending Provider Active St art: September 27, 2024 End: September 27, 2024 Television Script Writer Relationship Specialty Start Date End Date Radha Mckeon MD [address] [place] [address] PCP - General Family Medicine 12/27/22 Radha Mckeon MD [address] [place] [address] PCP - Devoted 08/04/24 Radha Mckeon MD [address] [place] [address] PCP - ACO Reach 09/17/24 Pippa Archer NP [address] [place] [address] Nurse Practitioner Family Medicine 12/27/22 Ghislaine Lawson RN [address] [place] [address] Registered Nurse Family Medicine 12/09/23 Television Script Writer Relationship Specialty Start Date End Date Radha Mckeon MD [address] [place] [address] PCP - General Family Medicine 12/27/22 Radha Mckeon MD [address] [place] [address] PCP - Devoted 08/04/24 Radha Mckeon MD [address] [place] [address] PCP - O Reach 09/17/24 Pippa Archer PRICER BAGGER [address] [place] [address] Nurse Practitioner Family Medicine 12/27/22 Ghislaine Lawson RN [address] [place] [address] Registered Nurse Family Medicine 12/09/23 Television Script Writer Relationship Specialty Start Date End Date Radha Mckeon MD [address] [place] [address] PCP - General Family Medicine 12/27/22 Radha Mckeon MD [address] [place] [address] PCP - Devoted 08/04/24 Radha Mckeon MD [address] [place] [address] PCP - ACO Reach 09/17/24 Pippa Archer, PRICER BAGGER [address] [place] [address] Nurse Practitioner Family Medicine 12/27/22 Ghislaine Lawson, RN [address] [place] [address] Registered Nurse Family Medicine 12/09/23 Team Status: Inactive Member Role Status Dates Radha Mckeon MD Primary Care Provider Active Sta rt: October 11, 2024 End: October 11, 2024 Helena Maxwell PA-C Attending Provider Active Start: October 11, 2024 End: October 11, 2024 Television Script Writer Relationship Specialty Start Date End Date Radha Mckeon MD [address] [place] [address] PCP - General Family Medicine 12/27/22 Radha Mckeon MD [address] [place] [address] PCP - Devoted 08/04/24 Radha Mckeon MD [address] [place] [address] PCP - ACO Reach 09/17/24 Pippa Archer, PRICER BAGGER [address] [place] [address] Nurse Practitioner Family Medicine 12/27/22 Ghislaine Lawson, RN [address] [place] [address] Registered Nurse Family Medicine 12/09/23 Television Script Writer Relationship Specialty Start Date End Date Radha Mckeon MD [address] [place] [address] PCP - General Family Medicine 12/27/22 Radha Mckeon MD [address] [place] [address] PCP - Devoted 08/04/24 Radha Mckeon MD [address] [place] [address] PCP - ACO Reach 09/17/24 Pippa Archer NP [address] [place] [address] Nurse Practitioner Family Medicine 12/27/22 Ghislaine Lawson, RN [address] [place] [address] Registered Nurse Family Medicine 12/09/23 Television Script Writer Relationship Specialty Start Date End Date Radha Mckeon MD PCP - General Family Medicine 12/24/22 Television Script Writer Relationship Specialty Start Date End Date Radha Mckoen MD [address] [place] [address] PCP - General Family Medicine 12/27/22 Radha Mckeon MD [address] [place] [address] PCP - Devoted 08/04/24 Pippa Archer NP [address] [place] [address] Nurse Practitioner Family Medicine 12/27/22 Ghislaine Lawson, RN [address] [place] [address] Registered Nurse Family Medicine 12/09/23 Television Script Writer Relationship Specialty Start Date End Date Radha Mckeon MD [address] [place] [address] PCP - General Family Medicine 12/27/22 Radha Mckeon MD [address] [place] [address] PCP - Devoted 08/04/24 Pippa Archer NP [address] [place] [address] Nurse Practitioner Family Medicine 12/27/22 Ghislaine Lawson RN [address] [place] [address] Registered Nurse Family Medicine 12/09/23 Television Script Writer Relationship Specialty Start Date End Date Radha Mckeon MD [address] [place] [address] PCP - General Family Medicine 12/27/22 Radha Mckeon MD [address] [place] [address] PCP - Devoted 08/04/24 Pippa Archer NP [address] [place] [address] Nurse Practitioner Family Medicine 12/27/22 Ghislaine Lawson RN [address] [place] [address] Registered Nurse Family Medicine 12/09/23 Television Script Writer Relationship Specialty Start Date End Date Radha Mckeon MD [address] [place] [address] PCP - General Family Medicine 12/27/22 Radha Mckeon MD [address] [place] [address] PCP - Devoted 08/04/24 Pippa Archer PRICER BAGGER [address] [place] [address] Nurse Practitioner Family Medicine 12/27/22 Ghislaine Lawson, RN [address] [place] [address] Registered Nurse Family Medicine 12/09/23 Television Script Writer Relationship Specialty Start Date End Date Radha Mckeon MD [address] [place] [address] PCP - General Family Medicine 12/27/22 Radha Mckeon MD [address] [place] [address] PCP - Devoted 08/04/24 Pippa Archer NP [address] [place] [address] Nurse Practitioner Family Medicine 12/27/22 Ghislaine Lawson, RN [address] [place] [address] Registered Nurse Family Medicine 12/09/23 Television Script Writer Relationship Specialty Start Date End Date Radha Mckeon MD [address] [place] [address] PCP - General Family Medicine 12/27/22 Radha Mckeon MD [address] [facility] [place] [address] PCP - Devoted 08/04/24 Pippa Archer, PRICER BAGGER [address] [facility] [place] [address] Nurse Practitioner Family Medicine 12/27/22 Ghislaine Lawson, RN [address] [place] [place] [address] Registered Nurse Family Medicine 12/09/23 Television Script Writer Relationship Specialty Start Date End Date Radha Mckeon MD [address] [facility] [place] [address] PCP - General Family Medicine 12/27/22 Radha Mckeon MD [address] [facility] [place] [address] PCP - Devoted 08/04/24 Pippa Archer, RADHA [address] [facility] [place] [address] Nurse Practitioner Family Medicine 12/27/22 Ghislaine Lawson RN [address] [facility] [address] Registered Nurse Family Medicine 12/09/23 Team Status: Inactive Member Role Status Dates Radha Mckeon MD Primary Care Provider Active Sta rt: December 10, 2024 End: December 10, 2024 Patricio Cifuentes MD Attending Provider Active St art: December 10, 2024 End: December 10, 2024 Team Status: Inactive Member Role Status Dates Radha Mckeon MD Primary Care Provider Active Sta rt: January 03, 2025 End: January 03, 2025 Mau Blackman DO Attending Provider Active S tart: January 03, 2025 End: January 03, 2025 Team Status: Active Member Role Status Dates Radha Mckeon MD Primary Care Provider Active Sta rt: January 03, 2025 Mau Blackman DO Attending Provider Active S tart: January 03, 2025 Television Script Writer Relationship Specialty Start Date End Date Radha Mckeon MD [address] [place] [address] PCP - General Family Medicine 12/27/22 Radha Mckeon MD [address] [place] [address] PCP - Devoted 08/04/24 Pippa Archer NP [address] [place] [address] Nurse Practitioner Family Medicine 12/27/22 [place] [address] [place] [address] Registered Nurse Family Medicine 12/09/23 FOR RECORDS [...] BE BASED ON THE PRIMARY CLINICAL RECORDS. [facility]. provides no warranty or guarantee of the accuracy or completeness of information in this document.
--- OUTSIDE RECORDS SUMMARY | 2025-02-12 10:30 | XMS_ITS | Encounter Summary ---
Author Organization [facility] Address [address] [place] [address] Care Team Providers Care Chief Chemist Name Role Phone Annika Mckeon MD Primary Care Provider [phone] Pippa Rouse MEDIA SERVICES DIRECTOR Unavailable [phone] Annika Mckeon MD Unavailable Ghislaine Lawson RN Unavailable [phone] Annika Mckeon MD Unavailable Annika Mckeon MD Unavailable Encounter Details Date Type Department Care Team (Late st Contact Info) Description 10/14/2023 Abstract [facility] [place] [address] [place] [address] Emma Knight MA 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 Tobacco Use [...] How often do you attend chur or presybeterian services? More than 4 times per year 07/15/2023 Do you belong to any clubs o r organizations such as samaritan groups, unions, fraternal or athletic groups, or [...] Patient Health Questionnaire-2 Score 4 09/09/2023 [facility] Occupat ional [facility] - [...] place to sleep or slept in a residential (including now)? No 07/15/2023 Comments Unknown Sex [...] 10:00 AM EDT Social Work [facility] [address] [place] [address] Sadaf Gutierrez LISW-S [address] [place], [place] [address] 02/22/2025 10:50 AM EDT Office Visit [facility] [address] [place] [address] Tyrese Swanson MD [address] [place] [address] 03/28/2025 12:20 PM EDT Office Visit [facility] [address] [place] [phone] Annika Mcekon MD [address] [place] [address] documented as of this encounter Visit Diagnoses Not on filedocumented in this encounter Additional Health Concerns Assessment Noted Time PHQ-9 Depression Total Score: 8 09/09/19 24 2:00 PM EST documented as of this encounter Care Teams Chief Chemist Relationship Specialty Start Date End Date Annika Mckeon MD [address] [place] [address] PCP - General Family Medicine 12/27/22 Annika Mckeon MD [address] [place] [address] PCP - ACO Reach 10/03/23 09/09/24 Annika Mckeon MD [address] [place] [address] PCP - Devoted 08/04/24 Annika Mckeon MD [address] [place] [address] PCP - ACO Reach 09/17/24 11/04/24 Pippa Rouse NP [address] [place] [address] Nurse Practitioner Family Medicine 12/27/22 Ghislaine Lawson, RN [address] [place] [address] Registered Nurse Family Medicine 12/09/23 documented as of this encounter
--- OUTSIDE RECORDS SUMMARY | 2025-02-12 10:30 | XMS_ITS | Encounter Summary ---
Author Organization [facility] Address [address] [place] [address] Care Team Providers Care Federal Appellate Law Clerk Name Role Phone Annika Mckeon MD Primary Care Provider [phone] Pippa Rouse NP Unavailable [phone] Ghislaine Lawson RN Unavailable [phone] Annika Mckeon MD Unavailable Encounter Details Date Type Department Care Team (Late st Contact Info) Description 02/10/2025 Clinisync Result Encounter [facility] External Department Unsolicited [...] How often do you attend chur or pentecostalism services? More than 4 times per year 07/15/2023 Do you belong to any clubs o r organizations such as gnosticism groups, unions, fraternal or athletic groups, or [...] Recorded Patient Health Questionnaire-2 Score 0 09/30/2024 [facility] Occupat ional Health - [...] a long-term (including now)? No 07/15/2023 Comments No Sex [...] AM EDT Social Work [facility]DES [address] [place] [address] Sadaf Gutierrez LISW-S [address] [place], [place] [address] 02/22/2025 10:50 AM EDT Office Visit [facility] [address] [place] [phone] Tyrese Swanson MD [address] [place] [address] 03/28/2025 12:20 PM EDT Office Visit [facility] FNSascha [address] [place] [address] Annika Mckeon MD [address] [place] [address] documented as of this encounter Procedures Procedure Name Priority Date/Time Associated Diagnosis Comments TBH VITAMIN D 25 OH Routine 02/10/2025 2 :00 PM EDT HMHP PTH, INTRAOPERATIVE Routine 02/10/2025 2:00 PM EDT ALL RENAL FUNCTION PANEL Routine 02/10/2025 2:00 PM EDT ALL MAGNESIUM Routine 02/10/2025 2:00 PM EDT documented in this encounter Results * (ABNORMAL) HMHP PTH, INTRAOPERATIVE (02/10/2025 2:00 PM EDT) PTH, INTACT 233(A) 15 - 65 pg/mL TBH Comment: Performed at: [facility] [address] [id number] Har[place] Tier: Tho Aguirre PhD, Phone: [phone] 02/10/2025 2:00 PM EDT 02/10/2025 2:06 PM EDT Narrative CLINISYNC - 02/11/2025 12:08 PM EDT Generic External Data Provider CLINMURTAZA F inal Result [facility] * TBH VITAMIN D 25 [place] (02/10/2025 2:00 PM EDT) VITAMIN D 26.3 ng/mL TB Comment: <20 ng/mL Vit D deficient 20-<30 ng/mL Vit D insufficient 30-100 ng/mL Vit D sufficient >100 ng/mL Potential Toxicity 02/10/2025 2:00 PM EDT 02/10/2025 2:06 PM EDT Narrative CLINISYNC - 02/10/2025 3:47 PM EDT Generic External Data Provider CLINISYNC F inal Result Performing Organization Address [facility] de Phone Number CLINISYNC TB * ALL MAGNESIUM (02/10/2025 2:00 PM EDT) MAGNESIUM 2.1 1.8 - 2.4 mg/dL TB 02/10/2025 2:00 PM EDT 02/10/2025 2:06 PM EDT Narrative CLINISYNC - 02/10/2025 2:52 PM EDT Generic External Data Provider CLINISYNC F inal Result Performing Organization Address [facility] de Phone Number CLINISYNC TB * (ABNORMAL) ALL RENAL FUNCTION PANEL (02/10/2025 2:00 PM EDT) SODIUM 146(H) 136 - 145 mmol/L TBH POTASSIUM 3.6 3.5 - 5.1 mmol/L TBH CHLORIDE 109(H) 98 - 107 mmol/L TBH CARBON DIOXIDE 28.5 21.0 - 32.0 mmol/L TBH ANION GAP 12.1 TBH GLUCOSE 85 74 - 106 mg/dL TBH BLOOD UREA NITROGEN 9.0 7.0 - 18.0 mg/dL TBH CREATININE 0.59 0.55 - 1.02 mg/dL TBH TBH EGFR-AF [place] >60 >=60 mL/min/1.7 3m 2 TBH TBH EGFR-NON AF [place] >60 >=60 mL/min/1.7 3m 2 TBH BUN CREATININE RATIO 15.3 TBH CALCIUM 8.5 8.5 - 10.1 mg/dL TBH PHOSPHORUS 3.4 2.6 - 4.7 mg/dL TBH ALBUMIN LEVEL 3.4 3.4 - 5.0 g/dL TBH 02/10/2025 2:00 PM EDT 02/10/2025 2:06 PM EDT Narrative CLINISYNC - 02/10/2025 2:52 PM EDT Generic External Data Provider CLINISYNC F inal Result Performing Organization Address City/[facility] de Phone Number CLINISYNC TBH documented in this encounter Visit Diagnoses Not on filedocumented in this encounter Additional Health Concerns Assessment Noted Time PHQ-9 Depression Total Score: 0 09/30/19 25 3:00 PM EST documented as of this encounter Care Teams Federal Appellate Law Clerk Relationship Specialty Start Date End Date Annika Mckeon MD [address] [place], [place] [id number] PCP - General Family Medicine 12/27/22 Annika Mckeon MD [address] [place] [address] PCP - Devoted 08/04/24 Pippa Rouse NP [address] [place] [address] Nurse Practitioner Family Medicine 12/27/22 Ghislaine Lawson, RN [address] [place] [address] Registered Nurse Family Medicine 12/09/23 documented as of this encounter
--- OUTSIDE RECORDS SUMMARY | 2025-02-12 10:30 | XMS_ITS | Encounter Summary ---
Author Organization [facility] Address [address] [place] [address] Care Team Providers Care Director Of Rehabilitation And Wellness Name Role Phone Annika Mckeon MD Primary Care Provider [phone] Pippa Rouse NP Unavailable [phone] Annika Mckeon MD Unavailable Ghislaine Lawson RN Unavailable [phone] Annika Mckeon MD Unavailable Annika Mckeon MD Unavailable Encounter Details Date Type Department Care Team (Late st Contact Info) Description 09/16/2023 External Result Encounter [facility] External Department Unsolicited Nteo Burton, DO [address] [place] [address] 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 Tobacco Use Types Packs/Day Years [...] How often do you attend chur or advent services? More than 4 times per year 07/15/2023 Do you belong to any clubs o r organizations such as moravian groups, unions, fraternal or athletic groups, or [...] Recorded Patient Health Questionnaire-2 Score 4 09/09/2023 [facility] of Occupat ional Health [...] place to sleep or slept in a care home (including now)? No 07/15/2023 Comments Unknown [...] 10:00 AM EDT Social Work [facility] [address] [place] [address] Sadaf Gutierrez, JARED-S [address] [place] [address] 02/22/2025 10:50 AM EDT Office Visit [facility] [address] [place] [address] Tyrese Swanson MD [address] [place] [address] 03/28/2025 12:20 PM EDT Office Visit [facility] JEAN [address] [place] [address] Annika Mckeon MD [address] [place] [address] documented as of this encounter Procedures Procedure Name Priority Date/Time Associated Diagnosis Comments ECG 12-LEAD 09/16/2023 11:42 AM EST documented in this encounter Results * ECG 12 lead (09/16/2023 11:42 AM EST) 09/16/2023 11:4 2 AM EST [facility] - 09/17/2023 12:22 PM EST [facility] Main [address] [address] Electrocardiograph Report Signed Patient: Rebecca Herrera MR#: [id number] : 1950 Acct:[id number] Age/Sex: 72 / F ADM Date: 09/16/23 Loc: Room: Type: [facility] Attending Dr: Neto Burton DO Ordering [...] block Abnormal ECG Confirmed by Mario Morse ([id number]) on 09/17/2023 12:22:17 PM Referred By: KORTNEY Electronically Signed By:Mario Morse Transcribed By: MUS Signed By Mario Morse MD 09/17/23 1222 Procedure Note Lazaro Morse MD - 09/18/2023 [facility] Main [place] [address] [place] [address] Electrocardiograph Report Signed Patient: Rebecca Herrera LMR#: [id number] : 3Acct:[id number] Age/Sex: 72 / FADM Date: 09/16/23 Loc: Room:Type: [facility] Attending Dr: Neto Burton DO Ordering [...] block Abnormal ECG Confirmed by Mario Morse ([id number]) on 09/17/2023 12:22:17 PM Referred By: KORTNEY Electronically Signed By:Mario Morse Transcribed By: MUS Signed By Mario Morse MD 09/17/23 1222 us Neto Burton DO ECG ORDERABLES Final Resul t Performing Organization Address City/State/[facility] Co de Phone Number [address] [address], documented in this encounter Visit Diagnoses Not on filedocumented in this encounter Additional Health Concerns Assessment Noted Time PHQ-9 Depression Total Score: 8 09/09/19 24 2:00 PM EST documented as of this encounter Care Teams Director Of Rehabilitation And Wellness Relationship Specialty Start Date End Date Annika Mckeon MD [address] [place] [address] PCP - General Family Medicine 12/27/22 Annika Mckeon MD [address] [place] [address] PCP - ACO Reach 10/03/23 09/09/24 Annika Mckeon MD [address] [facility] [place] [address] PCP - Devoted 08/04/24 Annika Mckeon MD [address] [facility] [place] [address] PCP - ACO Reach 09/17/24 11/04/24 Pippa Rouse NP [facility] [facility] [place] [address] Nurse Practitioner Family Medicine 12/27/22 Ghislaine Lawson, RN [address] [place] [address] Registered Nurse Family Medicine 12/09/23 documented as of this encounter
--- OUTSIDE RECORDS SUMMARY | 2025-02-12 10:30 | XMS_ITS | Encounter Summary ---
Author Organization [facility] Address [address] [place] [address] Care Team Providers Care Chief Crew Scheduler Name Role Phone Annika Mckeon MD Primary Care Provider [phone] Pippa Rouse NP Unavailable [phone] Annika Mckeon MD Unavailable Ghislaine Lawson RN Unavailable [phone] Annika Mckeon MD Unavailable Annika Mckeon MD Unavailable Reason for Referral * Imaging (Routine) - Closed Specialty Diagnoses / Procedures Referred By Contac t Referred To Contact Radiology Diagnoses Nonrheumatic aortic valve stenosis Procedures Transthoracic Echo (TTE) Complete Annika Mckeon MD [facility] [place] [address] Phone: tel: fax: [facility] [address] [place] [address] Referral ID Status Reason Start Date Expiration Date V isits Requested Visits Authorized [id number] Closed Perform Procedure 09/13/2023 03/11/2024 1 1 Encounter Details Date Type Department Care Team (Late st Contact Info) Description 09/13/2023 Orders Only [facility] [address] [place] [phone] Annika Mckeon MD [address] [place] [phone] Nonrheumatic aortic valve stenosis (Primary Dx) Social [...] How often do you attend chur or synagogue services? More than 4 times per year 07/15/2023 Do you belong to any clubs o r organizations such as voodoo groups, unions, fraternal or athletic groups, or [...] Recorded Patient Health Questionnaire-2 Score 4 09/09/2023 [facility] Occupat ional [facility] - Occupational Stress Questionnaire Answer Date Recorded [...] a penitentiary (including now)? No 07/15/2023 Comments Unknown Sex [...] AM EDT Social Work [facility] [address] [place] [address] Sadaf Gutierrez LISW-S [address] [place], [place] [address] 02/22/2025 10:50 AM EDT [facility] [address] [place] [address] Tyrese Swanson MD [address] [place] [address] 03/28/2025 12:20 PM EDT Office Visit [facility] [address] [place] [phone] Annika Mckeon MD [address] [place], [place] [phone] Scheduled Orders Name Type Priority Associated Diagnoses [...] as of this encounter Care Teams Chief Crew Scheduler Relationship Specialty Start Date End Date Annika Mckeon MD [address] [facility] [place] [address] PCP - General Family Medicine 12/27/22 Annika Mckeon MD [address] [facility] [place] [address] PCP - ACO Reach 10/03/23 09/09/24 Annika Mckeon MD [address] [facility] [place] [address] PCP - Devoted 08/04/24 Annika Mckeon MD [address] [facility] [place] [address] PCP - ACO Reach 09/17/24 11/04/24 Pippa Rouse NP [address] [place] [address] Nurse Practitioner Family Medicine 12/27/22 Ghislaine Lawson, NIKOS [address] [place] [address] Registered Nurse Family Medicine 12/09/23 documented as of this encounter
--- OUTSIDE RECORDS SUMMARY | 2025-02-12 10:30 | XMS_ITS | Patient Health Record ---
Author Organization [facility] [place] Address [address] [place] [address] Care Team Providers Care Aircraft Motor Mechanic Name Role Phone Irma Dupont Primary Care Provider Reason For Referral No Information Medications Medication SIG (Take, Route, Fr equency, Duration) Notes Start Date End Date Status Chimayo 5-325 MG 1 tablet Orally BID prn for 30 days 11/05/2018 Active Warfarin Sodium Acti ve Paxil 20 MG 1 tablet in the morn ing Orally Once a day for 90 days 11/05/2018 Active Chimayo Active Multivitamin Active Tylenol Active Paxil Active 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 Tobacco Use: 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 Observation Description Date Details (start date - stop date) Never Smoker NA - NA Tobacco Use/Smoking Question Answer Notes Patient is a nonsmoker Problems Problem Type SNOMED Code ICD Code Onset Dates Problem Status W/U Status Risk Notes Problem 984841009 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 Problem 988368838 Macular pucker, left eye (H35.372) Active confirmed NO SURGICAL INTERVENTION NEEDED. Problem 71617089 Anxiety with depression (F41.8) Active confirmed Plan Of Treatment No Information Insurance Providers Payer Name Payer Address Payer Phone Subscriber Number Group Number Insured Name Patient Relationship to Insured Coverage Start Date Coverage End Date [employer] [facility] [address] [place] [address] [id number] Rebecca Nugent Self - patient is the insured
--- OUTSIDE RECORDS SUMMARY | 2025-02-12 10:30 | XMS_ITS | Encounter Summary ---
Author Organization [facility] Address [address] [place] [address] Care Team Providers Care Newborn Photographer Name Role Phone Annika Mckeon MD Primary Care Provider [phone] Pippa Roues TRAILER MECHANIC Unavailable [phone] Ghislaine Lawson RN Unavailable [phone] Annika Mckeon MD Unavailable Annika Mckeon MD Unavailable Encounter Details Date Type Department Care Team (Late st Contact Info) Description 10/18/2024 Orders Only [facility] [address] [place] [id number] Tyrese Swanson MD [address] [place] [address] 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 Tobacco Use Types [...] often do you attend chur ch or islam services? More than 4 times per year [...] Recorded Patient Health Questionnaire-2 Score 0 09/30/2024 [facility] - Occupational Stress [...] AM EDT Social Work [facility] [address] [place] [address] Sdaaf Gutierrez [facility] [address] [place] [address] 02/22/2025 10:50 AM EDT Office Visit [facility] [address] [place] [address] Tyrese Swanson MD [address] [place] [address] 03/28/2025 12:20 PM EDT Office Visit [facility] [address] [place] [id number] Annika Mckeon MD [address] [place], [place] [id number] documented as of this encounter Procedures Procedure [...] documented as of this encounter Care Teams Newborn Photographer Relationship Specialty Start Date End Date Annika Mckeon MD [address] [facility] [place] [address] PCP - General Family Medicine 12/27/22 Annika Mckeon MD [address] [facility] [place] [address] PCP - Devoted 08/04/24 Annika Mckeon MD [address] [facility] [place] [address] PCP - ACO Reach 09/17/24 11/04/24 Pippa Rouse NP [address] [place] [address] Nurse Practitioner Family Medicine 12/27/22 Ghislaine Lawson, RN [address] [place] [address] Registered Nurse Family Medicine 12/09/23 documented as of this encounter
--- OUTSIDE RECORDS SUMMARY | 2025-02-12 10:30 | XMS_ITS | Clinical Summary ---
Author Organization [facility] Address [address] [place], [place] [id number] Care Team Providers Care Precise Winder Name Role Phone Unavailable Primary Care Provider [...]
[2025-02-12 12:03] LABS: BOX Test Date Sent 7/12/25; BOX Test Reference Lab CLEVELAND; BOX Test Sent Out CA OXALATE
[2025-02-12 12:04] LABS: Calcium 24 Hour Urine 80.0 mg/24hr (100.0-300.0); Total Volume 24 Hour Urine 1600 mL/24hr
== END 2025-02-12 10:27 | disposition home or self-care (01) ==
LOC: LAB 10:26
PROVIDERS: PCP Family Medicine; Visit Provider Internal Medicine
DX: N20.0 Calculus of kidney (principal)
CPT/HCPCS: 36415; 82340